=== PATIENT | female | born 1955 | race Hispanic/Latino ===

== ENCOUNTER 2017-04-30 11:52 | Day surgery (SDC) | payer OTHER ==
[2017-04-29 11:38] VITALS: BMI 34.0
[2017-04-30 12:46] LABS: BASO # 0.04 K/mm3 (0.0-2.0); BASO % 0.3 % (0.0-3.0); EOS # 0.1 (0.0-0.7); EOS % 0.9 % (1.5-5.0); GRAN # 12.16 (1.4-6.5); GRAN % 80.9 % (50.0-68.0); HEMATOCRIT 36.6 % (36.0-48.0); LYMPH # 1.5 (1.2-3.4); LYMPH % 10.3 % (22.0-35.0); MEAN CORPUSCULAR HEMOGLOBIN 23.4 pg (25.0-35.0); MEAN CORPUSCULAR HGB CONC 31.1 g/dl (31.0-37.0); MONO # 1.1 (0.1-0.6); MONO % 7.6 % (1.0-6.0); RED CELL DISTRIBUTION WIDTH 17.6 % (11.5-14.5)
[2017-04-30 13:02] LABS: INR 1.23 (0.93-1.08); PARTIAL THROMBOPLASTIN TIME 30.9 Seconds (25.1-36.5)
[2017-04-30 13:06] LABS: BLOOD UREA NITROGEN 8 mg/dL (7-21); CALCIUM 9.2 mg/dL (8.4-10.5); CARBON DIOXIDE 31 mmol/L (21-33); CHLORIDE 98 mmol/L (98-107); GFR AFRICAN-AMERICAN > 60; GLUCOSE,RANDOM 116 mg/dL (70-110); POTASSIUM 3.8 mmol/L (3.6-5.0); SODIUM 135 mmol/L (132-148)
[2017-04-30] MEDS ORDERED: Midazolam 2 MG/2 ML VIAL ONE (14:15)
[2017-04-30] MEDS ORDERED: Oxycodone/Acetaminophen 5/325 mg Tab PO PRN (15:23)
[2017-04-30] MEDS ORDERED: Sodium Chloride 0.45% 1,000 ML IV SCH (15:30)
--- NOTE | 2017-04-30 16:19 | CT ---
PROCEDURE: CT guided left lower lobe lung biopsy. HISTORY: 8 cm cavitary left lower lobe lung mass. Smoker. Martina. PHYSICIAN(S): Dze Laird MD. TECHNIQUE: The relative risks and indications of the procedure were explained to the patient and consent obtained. The patient was placed prone on the CT scanner and preliminary images through the lung bases obtained. Conscious sedation and monitoring were provided throughout the procedure by a nurse. There is an 8.6 cm thick walled cavitary mass in the left lower lobe extending from the hilum.. A left posterior approach was selected and the area prepped and draped in the usual sterile fashion. 1% Xylocaine was used to anesthetize the skin and soft tissues. A 19 gauge guiding needle was advanced into the 8.6 cm cavitary mass centrally. Its position was confirmed with CT. Using coaxial technique, multiple core biopsies were obtained. The postprocedure images show no evidence of large pneumothorax or hemorrhage.. IMPRESSION: 1. CT-guided left lower lobe lung biopsy as described above. Specimens were sent for histology and microbiology
[2017-04-30 16:27] VITALS: BP 110/59; PULSE 111; RESP 20; TEMP 98.4; O2SAT 92
--- NOTE | 2017-04-30 16:53 | RAD ---
HISTORY: lt lung bx apparently CT lung biopsy was performed prior to this exam COMPARISON: No prior. FINDINGS: LUNGS: The left rounded mid lung zone mass presumably that which was biopsied is noted. No gross pneumothorax is appreciated. PLEURA: Small left pleural effusion no pneumothorax apparent. CARDIOVASCULAR: Heart size top normal. Pulmonary venous congestion mildly increased -chronicity unknown OSSEOUS STRUCTURES: No significant abnormalities. VISUALIZED UPPER ABDOMEN: Normal. OTHER FINDINGS: None. IMPRESSION: Left lung mass recently biopsied. -under CT guidance. No pneumothorax appreciated on this exam. Small left pleural effusion
== END 2017-04-30 18:15 | disposition home or self-care (01) ==
LOC: SDS 11:52
PROVIDERS: ATTEND Radiology Vascular & Interventional Radiology
DX: C34.32 Malignant neoplasm of lower lobe, left bronchus or lung (principal); I73.9 Peripheral vascular disease, unspecified; J43.9 Emphysema, unspecified; F17.200 Nicotine dependence, unspecified, uncomplicated; E66.9 Obesity, unspecified; R04.2 Hemoptysis; J90 Pleural effusion, not elsewhere classified
CPT/HCPCS: 32405; 36415; 71010; 77012; 80048; 85025; 85610; 85730; 87015; 87070; 87075; 87101; 87116; 87206; 88305; J2250; J2405; J3010; J7030

== ENCOUNTER 2017-06-26 17:41 | Inpatient (IN) | payer OTHER ==
[2017-06-26 19:13] LABS: VENOUS BLOOD GAS BASE EXCESS 7.2 mmol/L (0.0-2.0); VENOUS BLOOD GAS PO2 190 mm/Hg (30-55); VENOUS BLOOD PH 7.42 (7.32-7.43)
[2017-06-26 19:24] LABS: ALBUMIN 3.6 g/dL (3.0-4.8); ALT/SGPT 21 U/L (7-56); AST/SGOT 33 U/L (14-36); BLOOD UREA NITROGEN 11 mg/dL (7-21); CALCIUM 9.6 mg/dL (8.4-10.5); GFR AFRICAN-AMERICAN > 60; GFR NON-AFRICAN AMERICAN > 60
[2017-06-26 19:25] LABS: BASO # 0.04 K/mm3 (0.0-2.0); BASO % 0.2 % (0.0-3.0); EOS # 0.1 (0.0-0.7); EOS % 0.3 % (1.5-5.0); GRAN # 17.29 (1.4-6.5); GRAN % 85.5 % (50.0-68.0); HEMOGLOBIN 12.4 g/dL (12.0-16.0); LYMPH # 1.8 (1.2-3.4); LYMPH % 8.9 % (22.0-35.0); MEAN CELL VOLUME 73.7 fl (80.0-105.0); MEAN CORPUSCULAR HEMOGLOBIN 22.5 pg (25.0-35.0); MEAN CORPUSCULAR HGB CONC 30.5 g/dl (31.0-37.0); MEAN PLATELET VOLUME 8.3 fl (7.0-11.0); MONO % 5.1 % (1.0-6.0); RBC 5.51 10^6/uL (3.5-6.1); RED CELL DISTRIBUTION WIDTH 18.5 % (11.5-14.5); WHITE BLOOD COUNT 20.2 10^3/ul (4.5-11.0)
[2017-06-26 19:30] LABS: ALB/GLOB RATIO 0.8 (1.1-1.8)
[2017-06-26 19:38] LABS: B-TYPE NATRIURETIC PEPTIDE 4490 pg/mL (0-450); TROPONIN I < 0.01 ng/mL
--- NOTE | 2017-06-26 19:57 | ED PDOC ---
Arrival/HPI - General Chief Complaint: Chest Pain Time Seen by Provider: 06/26/17 18:39 Historian: Patient - History of Present Illness Narrative History of Present Illness (Text): 06/26/17 19:54 A 61 year old female, whose past medical history includes recently diagnosed lung cancer, presents to the emergency department complaining of shortness of breath since today. Patient notes palpitations but denies any fever, chills, nausea, vomiting abdominal pain, chest pain or any other complaints. Patient reports she has a scheduled follow up appointment with oncologist tomorrow. Time/Duration: Other (today) Symptom Course: Unchanged Context: Home Past Medical History - Provider Review Nursing Documentation Reviewed: Yes - Past Medical History Past Medical History: No Previous - Cardiac Hx Cardiac Disorders: No Hx Pacemaker: No - Pulmonary Hx Respiratory Disorders: Yes Hx Lung Cancer: Yes - Neurological Hx Neurological Disorder: No Hx Paralysis: No - HEENT Hx HEENT Disorder: No - Renal Hx Renal Disorder: No - Endocrine/Metabolic Hx Endocrine Disorders: No - Hematological/Oncological Hx Blood Disorders: No Hx Blood Transfusions: No - Integumentary Hx Dermatological Disorder: No - Musculoskeletal/Rheumatological Hx Musculoskeletal Disorders: Yes Hx Falls: Yes - Gastrointestinal Hx Gastrointestinal Disorders: No - Genitourinary/Gynecological Hx Genitourinary Disorders: No - Psychiatric Hx Psychophysiologic Disorder: No Hx Emotional Abuse: No Hx Physical Abuse: No Hx Substance Use: No - Surgical History Other/Comment: Breast reduction - Anesthesia Hx Anesthesia Reactions: No Hx Malignant Hyperthermia: No - Suicidal Assessment Feels Threatened In Home Enviroment: No Family/Social History - Physician Review Nursing Documentation Reviewed: Yes Family/Social History: No Known Family HX Smoking Status: Former Smoker Hx Alcohol Use: Yes (RARE) Hx Substance Use: No Allergies/Home Meds Allergies/Adverse Reactions: Allergies No Known Allergies Allergy (Verified 06/26/17 18:01) Home Medications: Home Meds Medication Instructions Recorded Confirmed Albuterol HFA [Ventolin HFA 90 1 puff IH PRN PRN 04/29/17 06/26/17 mcg/actuation (8 g)] Dextroamphetamine/Amphetamine 20 mg PO TID 04/29/17 06/26/17 [Adderall 20 mg Tablet] Lactobacillus Combination No.8 1 cap PO DAILY 04/29/17 06/26/17 [Adult Probiotic] Naproxen Sodium [Aleve] 2 tab PO BID PRN 04/29/17 06/26/17 Review of Systems - Physician Review All systems were reviewed & negative as marked: Yes - Review of Systems Constitutional: absent: Fevers, Night Sweats Respiratory: SOB Cardiovascular: Palpitations. absent: Chest Pain Gastrointestinal: absent: Abdominal Pain, Nausea, Vomiting Physical Exam Vital Signs Reviewed: Yes Vital Signs Pulse Resp BP Pulse Ox 06/26/17 22:22 121/84 06/26/17 18:04 115 H 26 H 141/72 100 Temperature: Afebrile Blood Pressure: Normal Pulse: Tachycardic Respiratory Rate: Tachypneic Appearance: Positive for: Well-Appearing, Non-Toxic, Comfortable Pain Distress: None Mental Status: Positive for: Alert and Oriented X 3 - Systems Exam Head: Present: Atraumatic, Normocephalic Pupils: Present: PERRL Extroacular Muscles: Present: EOMI Conjunctiva: Present: Normal Mouth: Present: Moist Mucous Membranes Neck: Present: Normal Range of Motion Respiratory/Chest: Present: Decreased Breath Sounds (decrease air entry greater in left than right). No: Respiratory Distress, Accessory Muscle Use Cardiovascular: Present: Normal S1, S2, Tachycardic. No: Murmurs Abdomen: Present: Normal Bowel Sounds. No: Tenderness, Distention, Peritoneal Signs Back: Present: Normal Inspection Upper Extremity: Present: Normal Inspection, Normal ROM, NORMAL PULSES. No: Cyanosis, Edema Lower Extremity: Present: Edema (bilateral pitting edema up to knees), NORMAL PULSES, Normal ROM. No: CALF TENDERNESS Neurological: Present: GCS=15, CN II-XII Intact, Speech Normal Skin: Present: Warm, Dry, Normal Color. No: Rashes Psychiatric: Present: Alert, Oriented x 3, Normal Insight, Normal Concentration Medical Decision Making ED Course and Treatment: 06/26/17 19:54 Impression: A 61 year old female with shortness of breath and palpitations. Tachypnea, tachycardic and hypoxic. Plan: -- Angio chest CT -- Chest xray -- EKG -- Labs -- Blood and Urine culture -- Urinalysis -- Aspirin -- Reassess and disposition Progress Notes: EKG shows sinus tachycardia at 123 BPM with right axis, with nonspecific ST changes. Interpreted by me. Patient refusing BiPAP. Saturating 100% on face mask. 85% RA 06/26/17 22:54 FINDINGS: No pulmonary embolism. No aortic dissection or aneurysm. There is a moderate left pleural effusion. There is no right pleural effusion. There is left lower lung consolidation extending from the hilar region with a central area of cavitation similar to images sent from CT guided biopsy of this region. Please note that the prior CT is not sent, only biopsy images. Mediastinal lymph nodes are present. Heterogeneous enlarged left adrenal gland. Degenerative changes in the osseous structures. Possible hemangioma L1. IMPRESSION: Moderate left pleural effusion. Large area of consolidation with central cavitation in the left lower lung. Recommend correlation with recent biopsy for pathologic diagnosis. Mediastinal lymph nodes. Heterogeneous enlarged left adrenal gland. Further characterization with MRI may be helpful if not done previously. 06/26/17 22:56 1 dose of treatment for community acquired pna given due to leukocytosis and pleural effusion concerning for underlying consolidation. Lasix given due to fluid overload and b/l lower extremity edema. Continues to refuse bipap. Spoke to Dr. Matos for ICU consult. Will admit under Dr. Leslie for hypoxia, tachypnea and worsening pleural effusion - Lab Interpretations Lab Results: 06/26/17 18:00 Lab Results 06/26/17 19:51: Urine Color Yellow, Urine Appearance Clear, Urine pH 6.5, Ur Specific [place] 1.010, Urine Protein Negative, Urine Glucose (UA) Negative, Urine Ketones Negative, Urine Blood Trace-intact H, Urine Nitrate Negative, Urine Bilirubin Negative, Urine Urobilinogen 2.0 H, Ur Leukocyte Esterase Negative, Urine RBC 1 - 3, Urine WBC Negative, Ur Epithelial Cells 6 - 8, Urine Bacteria Few 06/26/17 19:40: Blood Type O POSITIVE, Antibody Screen Negative, BBK History Checked No verified bt 06/26/17 19:01: pO2 190 H, VBG pH 7.42, VBG pCO2 51.0, VBG HCO3 33.1 H, VBG Total CO2 34.7 H, VBG O2 Sat (Calc) 99.5 H, VBG Base Excess 7.2 H, VBG Potassium 4.2, Glucose 138 H, Lactate 0.7, FiO2 21.0, Sodium 133.0, Chloride 100.0, Venous Blood Potassium 4.2 06/26/17 18:00: PT 13.9 H, INR 1.21 H, APTT 30.7, D-Dimer, Quantitative 836 H 06/26/17 18:00: Sodium 136, Potassium 4.0, Chloride 94 L, Carbon Dioxide 31, Anion Gap 15, BUN 11, Creatinine 0.6 L, Est GFR ( Amer) > 60, Est GFR ( Non-Af Amer) > 60, Random Glucose 156 H, Calcium 9.6, Total Bilirubin 0.5, AST 33, ALT 21, Alkaline Phosphatase 212 H, Lactate Dehydrogenase 398, Total Creatine Kinase 24 L, Troponin I < 0.01, NT-Pro-B Natriuret Pep 4490 H, Total Protein 8.5 H, Albumin 3.6, Globulin 4.8, Albumin/Globulin Ratio 0.8 L 06/26/17 18:00: WBC 20.2 H D, RBC 5.51, Hgb 12.4, Hct 40.6, MCV 73.7 L, MCH 22.5 L, MCHC 30.5 L, RDW 18.5 H, Plt Count 528 H, MPV 8.3, Gran % 85.5 H, Lymph % (Auto) 8.9 L, [place] % (Auto) 5.1, Eos % (Auto) 0.3 L, Baso % (Auto) 0.2, Gran # 17.29 H, Lymph # 1.8, [place] # 1.0 H, Eos # 0.1, Baso # 0.04 I have reviewed the lab results: Yes - RAD Interpretation Radiology Orders: 06/26/17 18:59 CHEST PORTABLE [RAD] Stat 06/26/17 19:25 ANGIO CHEST PE PROTOCOL [CT] Stat - Medication Orders Current Medication Orders: Azithromycin (Zithromax 500mg In Ns) 500 mg in 250 mls @ 167 mls/hr IVPB STAT STA PRN Reason: Protocol Stop: 06/26/17 23:32 Last Admin: 06/26/17 22:47 Dose: 167 mls/hr eMAR Start Stop Document 06/26/17 22:47 RD (Rec: 06/26/17 22:48 RD [facility] [place] Intravenous Solution Start Date 06/26/17 Start Time 22:47 End Date 06/27/17 End time 00:17 Total Infusion Time 90 Discontinued Medications Aspirin (Aspirin Chewable) 324 mg PO STAT STA Stop: 06/26/17 18:42 Last Admin: 06/26/17 19:11 Dose: 162 mg Comments: patient took 2 81 mg aspirin earlier Furosemide (Lasix) 40 mg IVP STAT STA Stop: 06/26/17 22:08 Last Admin: 06/26/17 22:22 Dose: 40 mg MAR Blood Pressure Document 06/26/17 22:22 RD (Rec: 06/26/17 22:23 [facility]) Blood Pressure Blood Pressure (100/60-150/90) 121/84 IVP Administration Document 06/26/17 22:22 RD (Rec: 06/26/17 22:23 [facility]) Charges for Administration # of IVP Administrations 1 Ceftriaxone Sodium (Rocephin 1 Gram Ivpb) 1 gm in 100 mls @ 200 mls/hr IVPB STAT STA Stop: 06/26/17 22:35 Last Admin: 06/26/17 22:23 Dose: 200 mls/hr eMAR Start Stop Document 06/26/17 22:23 RD (Rec: 06/26/17 22:23 [facility]) Intravenous Solution Start Date 06/26/17 Start Time 22:23 - Scribe Statement The provider has reviewed the documentation as recorded by the Carlos Venegas Provider Scribe Attestation: All medical record entries made by the Scribe were at my direction and personally dictated by me. I have reviewed the chart and agree that the record accurately reflects my personal performance of the history, physical exam, medical decision making, and the department course for this patient. I have also personally directed, reviewed, and agree with the discharge instructions and disposition. Disposition/Present on Arrival - Present on Arrival Any Indicators Present on Arrival: No History of DVT/PE: No History of Uncontrolled Diabetes: No Urinary Catheter: No History of Decub. Ulcer: No History Surgical Site Infection Following: None - Disposition Have Diagnosis and Disposition been Completed?: Yes Diagnosis: Dependent edema, Pleural effusion, Tachypnea Disposition: HOSPITALIZED Disposition Time: 23:02 Patient Plan: Admission Patient Problems: Current Active Problems Problem Status Onset Dependent edema Acute Pleural effusion Acute Tachypnea Acute Condition: FAIR [facility]Primary Care [facility]] - Follow up with primary Forms: [employer] ([place])
[2017-06-26 20:22] LABS: PH,URINE 6.5 (4.7-8.0); URINE BILIRUBIN NEGATIVE (NEGATIVE); URINE BLOOD TRACE-INTACT (NEGATIVE); URINE GLUCOSE (UA) NEGATIVE (NEGATIVE); URINE LEUKOCYTE ESTERASE NEGATIVE Leu/uL (NEGATIVE); URINE NITRATE NEGATIVE (NEGATIVE); URINE PROTEIN NEGATIVE mg/dL (<30 mg/dL)
[2017-06-26 20:24] LABS: URINE APPEARANCE CLEAR (CLEAR); URINE COLOR YELLOW (YELLOW)
[2017-06-26 20:36] LABS: URINE BACTERIA FEW (NEG); URINE WBC NEGATIVE /hpf (0-6)
[2017-06-26 20:54] LABS: INR 1.21 (0.93-1.08); PARTIAL THROMBOPLASTIN TIME 30.7 Seconds (25.1-36.5); PROTHROMBIN TIME 13.9 SECONDS (9.4-12.5)
[2017-06-26] MEDS ORDERED: Iohexol 350 MG/100 ML VIAL ONE (21:00)
[2017-06-26] MEDS ORDERED: cefTRIAXone (Rocephin) 1 gm Inj IVPB STA (22:03)
[2017-06-26] MEDS ORDERED: Azithromycin 500MG/NS 250ml 500 MG/250 ML BAG IVPB STA (22:03)
[2017-06-26] MEDS ORDERED: cefTRIAXone 1 GM/100 ML BAG IVPB STA (22:06)
--- NOTE | 2017-06-26 22:52 | CT ---
EXAM: CT Angiography Chest With Intravenous Contrast CLINICAL HISTORY: 61 years old, female; Signs and symptoms; Shortness of breath and other: Hypoxic; Additional info: Cancer, hypoxic TECHNIQUE: Axial computed tomographic angiography images of the chest with intravenous contrast using pulmonary embolism protocol. All CT scans at this facility use one or more dose reduction techniques, viz.: automated exposure control; ma/kV adjustment per patient size (including targeted exams where dose is matched to indication; i.e. head); or iterative reconstruction technique. MIP reconstructed images were created and reviewed. Coronal and sagittal reformatted images were created and reviewed. CONTRAST: 93 mL of OMNI 350 administered intravenously. COMPARISON: CT GUIDED LUNG BIOPSY 2017-04-30 15:06 FINDINGS: No pulmonary embolism. No aortic dissection or aneurysm. There is a moderate left pleural effusion. There is no right pleural effusion. There is left lower lung consolidation extending from the hilar region with a central area of cavitation similar to images sent from CT guided biopsy of this region. Please note that the prior CT is not sent, only biopsy images. Mediastinal lymph nodes are present. Heterogeneous enlarged left adrenal gland. Degenerative changes in the osseous structures. Possible hemangioma L1. IMPRESSION: Moderate left pleural effusion. Large area of consolidation with central cavitation in the left lower lung. Recommend correlation with recent biopsy for pathologic diagnosis. Mediastinal lymph nodes. Heterogeneous enlarged left adrenal gland. Further characterization with MRI may be helpful if not done previously.
--- NOTE | 2017-06-27 01:32 | CP.PCM.CON ---
<Harshal Reyes - Last Filed: 06/27/17 03:17> History of Present Illness - History of Present Illness History of Present Illness: Harshal Reyes D.O. PGY-2, Critical Care Consultation CC: tachypnea 61 year old female with an extensive smoking history and recent diagnosis of lung CA who [place] [facility] [place] with complaints of increasing tachypnea over the last few days. Consultation was ordered to evaluate patient given her respiratory status. Patient was seen and examined at bedside sitting in a chair. Patient relates how she had been feeling worse and worse over the last few days and having difficulty catching her breath despite using her home albuterol inhaler. Patient does have follow up pending for her lung cancer and states that she recently quit smoking. Otherwise denies sick contacts or recent travel. PMH: as above PSH: reviewed SH: reviewed FH: reviewed Meds: reviewed Allergies: NKA Review of Systems - Constitutional Constitutional: absent: Anorexia, Chills - EENT Eyes: absent: Blind Spots, Blurred Vision Ears: absent: Decreased Hearing, Ear Discharge Nose/Mouth/Throat: absent: Epistaxis, Nasal Congestion - Cardiovascular Cardiovascular: absent: Chest Pain, Diaphoresis - Respiratory Respiratory: Cough, Dyspnea, Wheezing - Gastrointestinal Gastrointestinal: absent: Abdominal Pain, Nausea, Vomiting - Genitourinary Genitourinary: absent: Dysuria, Hematuria - Musculoskeletal Musculoskeletal: absent: Stiffness, Tingling - Integumentary Integumentary: absent: Pruritus, Rash - Neurological Neurological: absent: Tingling, Tremor Past Patient History - Past Social History Smoking Status: Former Smoker - CARDIAC Hx Cardiac Disorders: No Hx Pacemaker: No - PULMONARY Hx Respiratory Disorders: Yes Hx Lung Cancer: Yes - NEUROLOGICAL Hx Neurological Disorder: No Hx Paralysis: No - HEENT Hx HEENT Problems: No - RENAL Hx Chronic Kidney Disease: No - ENDOCRINE/METABOLIC Hx Endocrine Disorders: No - HEMATOLOGICAL/ONCOLOGICAL Hx Blood Disorders: No Hx Blood Transfusions: No - INTEGUMENTARY Hx Dermatological Problems: No - MUSCULOSKELETAL/RHEUMATOLOGICAL Hx Musculoskeletal Disorders: Yes Hx Falls: Yes - GASTROINTESTINAL Hx Gastrointestinal Disorders: No - GENITOURINARY/GYNECOLOGICAL Hx Genitourinary Disorders: No - PSYCHIATRIC Hx Psychophysiologic Disorder: No Hx Emotional Abuse: No Hx Physical Abuse: No Hx Substance Use: No - SURGICAL HISTORY Other/Comment: Breast reduction - ANESTHESIA Hx Anesthesia Reactions: No Hx Malignant Hyperthermia: No Meds Allergies/Adverse Reactions: Allergies Allergy/AdvReac Type Severity Reaction Status Date / Time No Known Allergies Allergy Verified 06/26/17 18:01 Physical Exam - Constitutional Appears: No Acute Distress, Chronically Ill - Head Exam Head Exam: ATRAUMATIC, NORMOCEPHALIC - Eye Exam Eye Exam: EOMI, PERRL. absent: Scleral icterus - ENT Exam ENT Exam: Mucous Membranes Moist - Neck Exam Neck exam: Positive for: Normal Inspection - Respiratory Exam Respiratory Exam: Decreased Breath Sounds, Wheezes - Cardiovascular Exam Cardiovascular Exam: RRR, +S1, +S2. absent: Gallop, Rubs - GI/Abdominal Exam GI & Abdominal Exam: Normal Bowel Sounds, Soft. absent: Tenderness - Extremities Exam Extremities exam: Negative for: calf tenderness - Neurological Exam Neurological exam: Alert, Oriented x3 - Psychiatric Exam Psychiatric exam: Normal Affect, Normal Mood - Skin Skin Exam: Dry, Warm Results - Vital Signs Recent Vital Signs: Last Vital Signs Temp Pulse 114 H 06/26/17 23:51 Resp 20 06/26/17 23:51 BP 139/85 06/26/17 23:51 Pulse Ox 91 L 06/26/17 23:51 - Labs Result Diagrams: 06/26/17 18:00 06/26/17 18:00 Assessment & Plan - Assessment and Plan (Free Text) Assessment: 61 year old female with an extensive smoking history and recent diagnosis of lung CA who presented with complaints of increasing tachypnea over the last few days Plan: Tachypnea Lung cancer Patient able to speak in mostly full sentences, found sitting comfortably in no acute distress. No decreased saturations observed during conversation. Patient refusing BIPAP, states that the mask makes her feel claustrophobic. CT chest images and read reviewed, no PE but has pleural effusion and consolidation likely area of known cancer. All labs reviewed. No hypercapnia. No acidosis. Patient stabilized at this time, not in any impending respiratory failure, and at this time does not meet criteria for intensive care unit admission. Please don't hesitate to re-consult for as necessary. Thank you for the pleasure of participating in the care of this interesting patient. Patient was seen and examined at bedside and case was discussed at length with attending physician. - Date & Time Date: 06/27/17 Time: 01:30 <Italo Matos MD - Last Filed: 06/28/17 11:12> Meds - Medications Medications: Current Medications Albuterol/Ipratropium (Duoneb 3 Mg/0.5 Mg (3 Ml) Ud) 3 ml IH [id number] [facility] Last Admin: 06/28/17 08:57 Dose: 3 ml Albuterol/Ipratropium (Duoneb 3 Mg/0.5 Mg (3 Ml) Ud) 3 ml IH Q2H PRN PRN Reason: Shortness of Breath Budesonide (Pulmicort Respules) 0.5 mg IH [id number] [facility] Last Admin: 06/28/17 08:56 Dose: 0.5 mg Furosemide (Lasix) 40 mg IVP DAILY [facility] Last Admin: 06/28/17 10:39 Dose: 40 mg Vancomycin HCl (Vancomycin 1gm) 1 gm in 250 mls @ 167 mls/hr IVPB Q12H LUZ MARINA PRN Reason: Protocol Last Admin: 06/28/17 10:24 Dose: 167 mls/hr Azithromycin (Zithromax 500mg In Ns) 500 mg in 250 mls @ 167 mls/hr IVPB DAILY [facility] PRN Reason: Protocol Last Admin: 06/28/17 10:25 Dose: 167 mls/hr Meropenem (Merrem Iv 1 Gm Premix) 50 mls @ 100 mls/hr IVPB Q8H [facility] Last Admin: 06/28/17 10:22 Dose: 100 mls/hr Methylprednisolone (Solu-Medrol) 40 mg IVP Q8H [facility] Last Admin: 06/28/17 10:50 Dose: 40 mg Results - Vital Signs Recent Vital Signs: Last Vital Signs Temp 98.2 F 06/28/17 08:14 Pulse 107 H 06/28/17 08:14 Resp 18 06/28/17 08:14 BP 130/60 06/28/17 10:39 Pulse Ox 94 L 06/28/17 08:14 - Labs Result Diagrams: 06/26/17 18:00 06/26/17 18:00 Attending/Attestation - Attestation I have personally seen and examined this patient.: Yes I have fully participated in the care of the patient.: Yes I have reviewed all pertinent clinical information: Yes Notes (Text): -I agree with the above ICU consult note completed by the resident physician; The patient doesnt require ICU level of care at this time for the reasons stated above by the resident physician. Please feel free to re-consult if her condition deteriorates. Thank you.
[2017-06-27 02:47] VITALS: BMI 34.5
[2017-06-27] MEDS ORDERED: Ipratropium 0.02% Inhal Soln (0.5 mg/2.5 ml) UD IH STA (04:13)
--- NOTE | 2017-06-27 08:14 | CP.PCM.HP ---
<Leeanne Daly - Last Filed: 06/27/17 12:54> History of Present Illness - History of Present Illness History of Present Illness: PGY-[address] Miranda CC: SOB, tachypnea, respiratory distress Ms Quinn, 61 year old female, with an extensive smoking history and recent diagnosis of lung CA who presented to [facility] ER on 06/26 with complaints of increasing tachypnea x 1 week. 1 Week ago, pt started coughing spell and requiring inhaler 3-4 times a day. Patient states that she had been feeling worse and worse over the last few days and having difficulty catching her breath despite using her home albuterol inhaler. Her cough was so severe that she fell backward landed on her buttock last week. Her son had a cold recently. Denies travel, runny nose, sputum. (+) sick contact. Patient does have follow up pending for her lung cancer and states that she recently quit smoking. In the ED, Patient refusing BiPAP. Saturating 100% on face mask. 85% RA EKG shows sinus tachycardia at 123 BPM with right axis, with nonspecific ST changes CTA chest showed: (+) moderate left pleural effusion. (+) Large left lower lung consolidation extending from the hilar region with a central cavitation (+) Mediastinal lymph nodes are present. Heterogeneous enlarged left adrenal gland. Degenerative changes in the osseous structures. Possible hemangioma L1. ROS (+) palpitation Denies F/C, CP, N/V,abd pain. Denies sick contacts or recent travel. PMH Lung CA, poorly differentation Chronic small pleural effusion Former smoker, quit recently Hx Falls PSH Breast reduction 1999 Inguinal hernia, R, repair, 2011 Lung bx 04/2017 FH dad- diabetes, mom HTN, sister-leukemia SH Former smoker, recently quit, 1ppd x 40 years Denied drink, drugs Live with son (16 yo), aunt. Brother lives nearly Allergy NKDA Med Adderall Albuteral PMD: Dr Corbin Outpat Oncologist: Dr. Ford Present on Admission - Present on Admission Any Indicators Present on Admission: No Review of Systems - Review of Systems All systems: reviewed and no additional remarkable complaints except - Constitutional Constitutional: As Per HPI Past Patient History - Past Social History Smoking Status: Former Smoker - CARDIAC Hx Cardiac Disorders: No Hx Pacemaker: No - PULMONARY Hx Respiratory Disorders: Yes Hx Lung Cancer: Yes - NEUROLOGICAL Hx Neurological Disorder: No Hx Paralysis: No - HEENT Hx HEENT Problems: No - RENAL Hx Chronic Kidney Disease: No - ENDOCRINE/METABOLIC Hx Endocrine Disorders: No - HEMATOLOGICAL/ONCOLOGICAL Hx Blood Disorders: No Hx Blood Transfusions: No - INTEGUMENTARY Hx Dermatological Problems: No - MUSCULOSKELETAL/RHEUMATOLOGICAL Hx Musculoskeletal Disorders: Yes Hx Falls: Yes - GASTROINTESTINAL Hx Gastrointestinal Disorders: No - GENITOURINARY/GYNECOLOGICAL Hx Genitourinary Disorders: No - PSYCHIATRIC Hx Psychophysiologic Disorder: No Hx Emotional Abuse: No Hx Physical Abuse: No Hx Substance Use: No - SURGICAL HISTORY Other/Comment: Breast reduction - ANESTHESIA Hx Anesthesia Reactions: No Hx Malignant Hyperthermia: No Meds Allergies/Adverse Reactions: Allergies Allergy/AdvReac Type Severity Reaction Status Date / Time No Known Allergies Allergy Verified 06/26/17 18:01 Physical Exam - Constitutional Appears: No Acute Distress Additional comments: Speaks in choppy sentences interrupted by coughs - Head Exam Head Exam: ATRAUMATIC, NORMAL INSPECTION, NORMOCEPHALIC - Eye Exam Eye Exam: EOMI, Normal appearance, PERRL. absent: Scleral icterus Pupil Exam: NORMAL ACCOMODATION - ENT Exam ENT Exam: Mucous Membranes Moist - Neck Exam Additional comments: supple - Respiratory Exam Respiratory Exam: Wheezes. absent: NORMAL BREATHING PATTERN (shallow breaths with coughs, interrupting speech) - Cardiovascular Exam Cardiovascular Exam: REGULAR RHYTHM, +S1, +S2. absent: Systolic Murmur - GI/Abdominal Exam GI & Abdominal Exam: Normal Bowel Sounds, Soft. absent: Guarding, Rigid, Tenderness - Extremities Exam Extremities exam: Positive for: pedal edema (2+, chronic). Negative for: calf tenderness - Neurological Exam Neurological exam: Alert, Oriented x3 - Psychiatric Exam Psychiatric exam: Normal Affect, Normal Mood - Skin Skin Exam: Dry, Warm Results - Vital Signs Recent Vital Signs: Last Vital Signs Temp 97.5 F L 06/27/17 06:00 Pulse 110 H 06/27/17 06:00 Resp 21 06/27/17 06:00 BP 106/71 06/27/17 06:00 Pulse Ox 90 L 06/27/17 06:00 - Labs Result Diagrams: 06/26/17 18:00 06/26/17 18:00 Labs: Laboratory Results - last 24 hr 06/27/17 06/27/17 06:00 07:28 POC Glucose (mg/dL) 128 H Blood Type Confirm O POSITIVE Assessment & Plan - Assessment and Plan (Free Text) Plan: Ms Quinn, 61 year old female, with recent diagnosis of lung CA s/p CT-guided lung Bx presented with complaints of increasing tachypnea x 1 week, requiring inhaler 3-4 times a day without much improvement. Sepsis from pneumonia (HR 113, RR 24, 105/65, WBC 20.2) - Meropenem, Vancomycin, Azithromycin - ID consult - Pending blood and urine culture - Consider procalcitonin, MRSA nasal swab, Leginella Ag, Mycoplasma Ag, flu swab - tylenol prn Pneumonia, s/p recent lung Bx, HCAP vs postobstructive Respiratory distress with hypoxia, tachypnea - improves - CT chest large consolidation with central cavitation in LL lung - Duoneb Q6 and q2prn, Budesonide - Pulm consult - pt refused bipap - o2 prn Plerual effusion, moderate, exudative vs transudative - sufficicent amount for thoracentesis? Consider IR consult CHF chronic, BNP 4490 - Lasix prn - daily wt, i/o microcytic RBC - consider stool occult blood Consider DVt due to hypercoagulable state from malignancy S/R/d/w Dr. Miranda <Alejandro Miranda S - Last Filed: 06/27/17 17:42> Results - Vital Signs Recent Vital Signs: Last Vital Signs Temp 97.8 F 06/27/17 17:28 Pulse 101 H 06/27/17 17:28 Resp 20 06/27/17 17:28 BP 99/62 L 06/27/17 17:28 Pulse Ox 90 L 06/27/17 06:00 - Labs Result Diagrams: 06/26/17 18:00 06/26/17 18:00 Labs: Laboratory Results - last 24 hr 06/27/17 06/27/17 06/27/17 06:00 07:28 10:10 pCO2 57 H pO2 58.0 L HCO3 35.3 H ABG pH 7.40 ABG Total CO2 37.0 H ABG O2 Saturation 93.3 L ABG O2 Content 13.8 L ABG Base Excess 8.9 H ABG Hemoglobin 10.8 L ABG Carboxyhemoglobin 2.6 H POC ABG HHb (Measured) 6.5 H ABG Methemoglobin 0.3 ABG O2 Capacity 14.8 L Hgb O2 Saturation 90.5 L FiO2 32.0 POC Glucose (mg/dL) 128 H Blood Type Confirm O POSITIVE Assessment & Plan - Assessment and Plan (Free Text) Plan: Pt seen and examined by me. I reviewed the above note and the ER note. Agree with the Assessment and plan. Reviewed old notes. Reviewed labs and medications. On IV Abx and Duoneb. The pt fell at home. She is going to see an oncologist in 4 days.
[2017-06-27] MEDS ORDERED: Albuterol-Ipratrop 3 mg / 0.5 (3 ml) UD IH SCH (09:15)
[2017-06-27] MEDS: MethylPREDNISolone 40 mg Vial IVP SCH ×2 (09:33→17:25)
--- NOTE | 2017-06-27 09:53 | RAD ---
HISTORY: hypoxic, tachypneic COMPARISON: 04/30/2017 FINDINGS: LUNGS: There is an infiltrate in the left lower lobe. This obscures the diaphragm. Prominent interstitial markings PLEURA: No significant pleural effusion identified, no pneumothorax apparent. CARDIOVASCULAR: Mild cardiomegaly OSSEOUS STRUCTURES: No significant abnormalities. VISUALIZED UPPER ABDOMEN: Normal. OTHER FINDINGS: None. IMPRESSION: There is an infiltrate in the left lower lobe. This obscures the diaphragm. Prominent interstitial markings
[2017-06-27] MEDS ORDERED: Meropenem 1 GM in Dextrose 5% In Water 100 ML IVPB SCH (10:00)
[2017-06-27 10:20] LABS: ARTERIAL BLOOD GAS HCO3 35.3 mmol/L (21-28); ARTERIAL BLOOD GAS HEMOGLOBIN 10.8 g/dL (11.7-17.4); ARTERIAL BLOOD GAS O2 CAPACITY 14.8 mL/dl (16-24); ARTERIAL BLOOD GAS O2 CONTENT 13.8 ML/dl (15-23); ARTERIAL BLOOD GAS O2 SAT 93.3 % (95-98); ARTERIAL BLOOD GAS PCO2 57 mm/Hg (35-45)
[2017-06-27] MEDS: Vancomycin 1gm in NS 250ml 1 GM/250 ML BAG IVPB SCH ×2 (10:22→21:52)
[2017-06-27] MEDS: Meropenem IV 1 gm in NS 50 ML IVPB SCH ×2 (12:36→17:24)
--- NOTE | 2017-06-27 12:38 | CON ---
DATE: 06/27/2017 PULMONARY CONSULTATION REASON FOR CONSULTATION: Chronic obstructive pulmonary disease. REFERRING PHYSICIAN: Dr. Alejandro Miranda. HISTORY OF PRESENT ILLNESS: The patient is a 61-year-old female, with past medical history significant for advanced chronic obstructive pulmonary disease, positive extensive smoking history, advanced/extensive non-small cell cancer of the left lung, who presents to [facility] with a 3-day history of worsening shortness of breath at rest, dyspnea on exertion, cough and minimal sputum production. There is no history of chest pain, coughing up of blood or chest pain - made worse with deep respirations. There is no history of temperatures, chills or infectious exposure. There is no history of night sweats. There is a history of weight loss with decreased appetite recently. No history of calf pains. No history of syncope or diaphoresis. No history of recent travel or trauma. REVIEW OF SYSTEMS: No history of nausea, vomiting or diarrhea. No acute urinary symptoms. No new neurologic or musculoskeletal complaints. Rest of the review of systems negative. ALLERGIES: NO KNOWN ALLERGIES. SOCIAL HISTORY: Positive for extensive tobacco usage. No alcohol. FAMILY HISTORY: No inheritable diseases. HOME MEDICATIONS: Include Aleve, Adderall and albuterol HFA. PHYSICAL EXAMINATION: GENERAL: The patient is mildly short of breath, but in no acute distress. She is not using accessory muscles for breathing. VITAL SIGNS: Temperature is 97.5, pulse on the monitor is 106, respiratory rate 21, blood pressure 106/71. Oxygen saturation on nasal cannula is 90-92%. HEENT: Normocephalic, atraumatic. No JVD. CARDIOVASCULAR: Positive S1, S2. No S3 gallop. LUNGS: Decreased breath sounds - both lower lobes. Scattered bilateral rhonchi and wheezing are present. EXTREMITIES: Positive for edema. No cyanosis, no clubbing. Calves are nontender to palpation. GI: Abdomen is soft, nontender and nondistended. Bowel sounds are positive. SKIN: No acute rash. NEUROLOGIC: Limited at the present time. PERTINENT LABORATORY DATA: CAT scan of the chest was done as an angiogram protocol. There is no pulmonary embolism noted. There is a large area of consolidation with central cavitation in the left lower lung. There is a small to moderate left pleural effusion. There are also enlarged mediastinal lymph nodes. The patient did have a PET scan done on 05/23/2017. At that point, there was again a small to moderate left pleural effusion. There was a large cavitary mass at the left lower lobe with intense FDG uptake. There was also mildly increased FDG uptake in the mediastinal lymph nodes. There was also a left adrenal gland nodule with increased FDG uptake. CBC: White count 20.2, hemoglobin 12.4, hematocrit 40.6, platelets of [id number]. Complete metabolic profile: Chloride 94, creatinine 0.6, glucose 156, alkaline phosphatase 212. B-type natriuretic peptide 4490, protein 8.5. Rest of the metabolic profile is within normal limits. IMPRESSION: 1. Acute bronchitis. 2. Advanced chronic obstructive pulmonary disease. 3. Advanced/extensive non-small cell cancer of the left lung. 4. Leukocytosis. PLAN: The patient presents to [facility] with a 3-day history of worsening pulmonary symptoms. I do know this patient from the office. The patient did have a CAT scan of the chest - done as an angiogram protocol. There is no pulmonary embolism noted. There is a large area of consolidation with central cavitation in the left lower lung. This cavitary mass was biopsied - positive for non-small cell carcinoma. There is also increased mediastinal lymphadenopathy ,as well as a left adrenal gland nodule. This adrenal gland nodule did light up on previous PET scan. I did review the laboratory exams. There is significant leukocytosis noted. Dr. Stuart (infectious disease) has been called on the case for antibiotic usage. On physical exam, the patient is in moderate bronchospasm. I will increase the DuoNeb treatments, add inhaled Pulmicort, and add intravenous steroids. Oxygen saturation on nasal cannula is 90-92%. I will also obtain an arterial blood gas this morning. Gomez cultures are pending. The patient does feel better, and is clinically improved - compared to the past few days. However, unfortunately, the overall status/prognosis for this patient is poor. She does have an appointment with an oncologist at [facility] next Friday. I have urged her to seek an oncology evaluation for the past few months. I will discuss the above with Dr. Miranda. Thank you very much for this pulmonary consultation. Amadou Mueller MD [facility] # [id number] [place]
[2017-06-27] MEDS: Albuterol-Ipratrop 3 mg / 0.5 (3 ml) UD IH SCH ×2 (13:41→22:00)
--- NOTE | 2017-06-27 13:59 | CP.PCM.CON ---
History of Present Illness - History of Present Illness History of Present Illness: 61 year old female with PMH of extensive smoking history, lung CA diagnosed in April 2017 came in to [facility] complaining of worsening shortness of breath and cough for the past 3-4 days, as well as dyspnea on exertion. 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 She denies fever or chills, she has cough with yellowish and blood-tinged sputum, denies sore throat, no rhinorrhea , no chest pain, no abdominal pain, no dysphagia, no diarrhea, no dysuria. In the ED, CT chest was done which continues to show the left lower cavitary lesion but now with surrounding consolidation as well. Infectious diseases consult is requested to further evaluate and manage. Review of Systems - Review of Systems All systems: reviewed and no additional remarkable complaints except (as per HPI ) Past Patient History - Past Social History Smoking Status: Former Smoker - CARDIAC Hx Cardiac Disorders: No Hx Pacemaker: No - PULMONARY Hx Respiratory Disorders: Yes Hx Lung Cancer: Yes - NEUROLOGICAL Hx Neurological Disorder: No Hx Paralysis: No - HEENT Hx HEENT Problems: No - RENAL Hx Chronic Kidney Disease: No - ENDOCRINE/METABOLIC Hx Endocrine Disorders: No - HEMATOLOGICAL/ONCOLOGICAL Hx Blood Disorders: No Hx Blood Transfusions: No - INTEGUMENTARY Hx Dermatological Problems: No - MUSCULOSKELETAL/RHEUMATOLOGICAL Hx Musculoskeletal Disorders: Yes Hx Falls: Yes - GASTROINTESTINAL Hx Gastrointestinal Disorders: No - GENITOURINARY/GYNECOLOGICAL Hx Genitourinary Disorders: No - PSYCHIATRIC Hx Psychophysiologic Disorder: No Hx Emotional Abuse: No Hx Physical Abuse: No Hx Substance Use: No - SURGICAL HISTORY Other/Comment: Breast reduction - ANESTHESIA Hx Anesthesia Reactions: No Hx Malignant Hyperthermia: No Meds Allergies/Adverse Reactions: Allergies Allergy/AdvReac Type Severity Reaction Status Date / Time No Known Allergies Allergy Verified 06/26/17 18:01 - Medications Medications: Current Medications Albuterol/Ipratropium (Duoneb 3 Mg/0.5 Mg (3 Ml) Ud) 3 ml IH [id number] LUZ MARINA Albuterol/Ipratropium (Duoneb 3 Mg/0.5 Mg (3 Ml) Ud) 3 ml IH Q2H PRN PRN Reason: Shortness of Breath Budesonide (Pulmicort Respules) 0.5 mg IH [id number] LUZ MARINA Furosemide (Lasix) 40 mg IVP DAILY [facility] Last Admin: 06/27/17 09:33 Dose: 40 mg Methylprednisolone (Solu-Medrol) 40 mg IVP Q8H [facility] Last Admin: 06/27/17 09:33 Dose: 40 mg Physical Exam - Constitutional Appears: Chronically Ill - Head Exam Head Exam: NORMAL INSPECTION - ENT Exam ENT Exam: Mucous Membranes Moist - Neck Exam Neck exam: Negative for: Meningismus - Respiratory Exam Respiratory Exam: Decreased Breath Sounds - Cardiovascular Exam Cardiovascular Exam: +S1, +S2 - GI/Abdominal Exam GI & Abdominal Exam: Soft. absent: Tenderness Results - Vital Signs Recent Vital Signs: Last Vital Signs Temp 97.5 F L 06/27/17 06:00 Pulse 110 H 06/27/17 06:00 Resp 21 06/27/17 06:00 BP 95/50 L 06/27/17 09:33 Pulse Ox 90 L 06/27/17 06:00 - Labs Result Diagrams: 06/26/17 18:00 06/26/17 18:00 Labs: Laboratory Results - last 24 hr 06/27/17 06/27/17 06:00 07:28 POC Glucose (mg/dL) 128 H Blood Type Confirm O POSITIVE Assessment & Plan - Assessment and Plan (Free Text) Plan: Assessment Sepsis due to left lower HCAP, probably post-obstructive pneumonitis in a patient with poorly-differentiated squamous cell lung CA with cavitary lesion extensive smoking history Plan Started the patient on vancomycin, merrem and Zithromax pending blood, sputum cx ; reviewed CT chest will monitor clinically overall prognosis is poor
[2017-06-27] MEDS ORDERED: Meropenem 1 GM in Sodium Chloride 0.9% 100 ML IVPB SCH (14:00)
--- NOTE | 2017-06-27 20:36 | CARD ---
APPROVED REPORT EKG Measurement Heart [id number] <Conclusion> Sinus tachycardia Possible Left atrial enlargement Rightward axis RSR' or QR pattern in V1 suggests right ventricular conduction delay Borderline ECG
[2017-06-27] MEDS: Budesonide 0.5 mg/2 ml Inhal Susp UD IH SCH (22:00)
[2017-06-28] MEDS: MethylPREDNISolone 40 mg Vial IVP SCH ×3 (01:53→18:24)
[2017-06-28] MEDS: Meropenem IV 1 gm in NS 50 ML IVPB SCH ×3 (01:53→17:46)
[2017-06-28] MEDS: Albuterol-Ipratrop 3 mg / 0.5 (3 ml) UD IH SCH ×4 (02:09→19:22)
[2017-06-28] MEDS: Budesonide 0.5 mg/2 ml Inhal Susp UD IH SCH ×2 (08:56→19:22)
[2017-06-28] MEDS: Vancomycin 1gm in NS 250ml 1 GM/250 ML BAG IVPB SCH ×2 (10:24→21:59)
[2017-06-28] MEDS: Azithromycin 500MG/NS 250ml 500 MG/250 ML BAG IVPB SCH (10:25)
--- NOTE | 2017-06-28 13:37 | PN ---
DATE: 06/28/2017 PULMONARY PROGRESS NOTE SUBJECTIVE: The patient was seen and examined at bedside. She is receiving inhalation treatment with Duoneb. She is currently on wide antibiotic coverage with azithromycin, vancomycin, and meropenem. She is also on inhaled steroids. LABORATORY DATA: No new laboratory data. PHYSICAL EXAMINATION: VITAL SIGNS: Temperature 98.2, pulse 107, respirations 18, pulse oxymetry 94 on room air, blood pressure is 111/70. HEAD: Normocephalic and atraumatic. NECK: Supple with no jugular vein distensions. CHEST: Symmetrical. CARDIOVASCULAR: S1, S2. No S3. Irregular. LUNGS: Diminished breath sounds bilaterally with few end-expiratory wheezes. GI: Soft, nontender. No organomegaly. EXTREMITIES: No pedal edema. SKIN: Clear with no skin rashes. No cyanosis. NEUROLOGIC: No focal deficits. ASSESSMENT: 1. Exacerbation of severe chronic obstructive pulmonary disease. 2. Acute bronchitis. 3. Advanced nonsmall-cell carcinoma of the lungs. 4. Leukocytosis. PLAN: The patient has improved since yesterday. She is less shortness of breath. She had a CT scan of the chest showing large area of consolidation with central cavitation in the left lung. This cavitary mass is actually nonsmall cell carcinoma. Dr. Stuart is administering her antibiotic in order to attempt to improve this tumor abscess situation. Her COPD started to improve on current regimen with steroids, antibiotics, and nebulizer treatments. Claudio Denise MD [place]
[2017-06-28 15:36] LABS: HEMOGLOBIN 11.1 g/dL (12.0-16.0); MEAN CELL VOLUME 75.4 fl (80.0-105.0); MEAN CORPUSCULAR HEMOGLOBIN 22.2 pg (25.0-35.0); MEAN CORPUSCULAR HGB CONC 29.4 g/dl (31.0-37.0); MEAN PLATELET VOLUME 8.1 fl (7.0-11.0); RED CELL DISTRIBUTION WIDTH 18.6 % (11.5-14.5); WHITE BLOOD COUNT 22.1 10^3/ul (4.5-11.0)
--- NOTE | 2017-06-28 18:52 | PN ---
DATE: 06/28/2017 SUBJECTIVE: The patient is in bed, was seen earlier today in 566, bed 3. She appears to be comfortable. No fevers and chills. PHYSICAL EXAMINATION: VITAL SIGNS: Temperature is 98, blood pressure is 111/70, respiratory 16. HEENT: Unremarkable. NECK: Supple. LUNGS: Have decreased breath sounds. HEART: Normal S1, S2. ABDOMEN: Soft. LABORATORY EXAMINATION: Reveals a white count is 20,000, hemoglobin of 12. Chemistries are noted. The patient's MCV is 73, platelets of 528 and alkaline phosphatase of 212. BNP is 44,900 and urinalysis is noted and microbiology reveals the blood cultures no growth and review of orders reveals the sputum culture is pending. The patient is on meropenem and vancomycin and IV Zithromax. The patient had a CAT scan of the chest. A large area of consolidation is noted. Central cavitation is noted. ASSESSMENT AND PLAN: This is a 61-year-old female with extensive history of smoking, lung cancer diagnosed in 04/2017, worsening shortness of breath and had a biopsy, confirmed poorly differentiated squamous cell cancer, cavitary lesion. With sepsis due to left lower lobe healthcare-associated pneumonia, post obstructive pneumonitis currently on vancomycin, meropenem, and Zithromax. We will follow closely with you. Eliezer Stuart MD
[2017-06-29] MEDS: Albuterol-Ipratrop 3 mg / 0.5 (3 ml) UD IH SCH ×4 (01:13→22:21)
[2017-06-29] MEDS: MethylPREDNISolone 40 mg Vial IVP SCH ×3 (02:33→17:45)
[2017-06-29] MEDS: Meropenem IV 1 gm in NS 50 ML IVPB SCH ×4 (02:35→22:14)
[2017-06-29] MEDS: Budesonide 0.5 mg/2 ml Inhal Susp UD IH SCH ×2 (07:56→22:21)
[2017-06-29] MEDS: Vancomycin 1gm in NS 250ml 1 GM/250 ML BAG IVPB SCH ×2 (10:02→23:46)
[2017-06-29] MEDS ORDERED: guaiFENesin 100 mg/5 ml Syrup UD PO PRN (10:56)
[2017-06-29 12:05] LABS: HEMOGLOBIN 12.1 g/dL (12.0-16.0); MEAN CELL VOLUME 74.1 fl (80.0-105.0); MEAN CORPUSCULAR HEMOGLOBIN 21.9 pg (25.0-35.0); MEAN CORPUSCULAR HGB CONC 29.5 g/dl (31.0-37.0); MEAN PLATELET VOLUME 8.3 fl (7.0-11.0); RBC 5.53 10^6/uL (3.5-6.1); RED CELL DISTRIBUTION WIDTH 20.9 % (11.5-14.5)
[2017-06-29] MEDS: Azithromycin 500MG/NS 250ml 500 MG/250 ML BAG IVPB SCH (12:13)
[2017-06-29 13:35] LABS: ALB/GLOB RATIO 0.8 (1.1-1.8); ALBUMIN 3.8 g/dL (3.0-4.8); ALT/SGPT 29 U/L (7-56); AST/SGOT 50 U/L (14-36); BLOOD UREA NITROGEN 19 mg/dL (7-21); CALCIUM 9.5 mg/dL (8.4-10.5); GFR AFRICAN-AMERICAN > 60; GFR NON-AFRICAN AMERICAN > 60
[2017-06-29] MEDS: Albuterol-Ipratrop 3 mg / 0.5 (3 ml) UD IH PRN (18:19)
[2017-06-29] MEDS: Promethazine/Cod 6.25mg-10mg/5ml Syr UD PO PRN (22:16)
[2017-06-30] MEDS: Albuterol-Ipratrop 3 mg / 0.5 (3 ml) UD IH SCH ×4 (02:03→19:59)
[2017-06-30] MEDS: MethylPREDNISolone 40 mg Vial IVP SCH ×3 (02:29→22:28)
--- NOTE | 2017-06-30 02:49 | PN ---
DATE: 06/29/2017 SUBJECTIVE: The patient is seen earlier today in 566, bed 3. No fevers. No chills. Doing better. PHYSICAL EXAMINATION: VITAL SIGNS: Temperature is 98, blood pressure is 102/70, and respiratory rate of 16. HEENT: Unremarkable. NECK: Supple. LUNGS: Decreased breath sounds. HEART: Normal S1 and S2. ABDOMEN: Soft. LABORATORY DATA: Reveals white count of 20,000, hemoglobin of 12, and platelets of 588. Chemistry reveals BUN of 19, creatinine of 0.6, and procalcitonin of 0.05. Urinalysis is noted. Influenza is negative. Microbiology reveals the blood cultures are negative. ASSESSMENT AND PLAN: This is a 61-year-old female seen earlier this morning with extensive history of smoking, lung cancer diagnosed in 04/2017 with worsening of shortness of breath. Biopsy confirmed the poorly differentiated squamous cell cancer, cavitary lesion, sepsis due to left lower lobe healthcare-associated pneumonia, post obstructive pneumonitis, on vancomycin, meropenem, and Zithromax, with negative blood cultures and meropenem is active, vancomycin is active, and azithromycin is also active. The patient with procalcitonin of 0.05. Dr. Claudio Denise's note is reviewed from yesterday. The patient with persistent leukocytosis. We will switch the Zithromax to p.o. The patient is also on Solu-Medrol. Eliezer Stuart MD
[2017-06-30] MEDS: Meropenem IV 1 gm in NS 50 ML IVPB SCH ×3 (05:18→22:28)
[2017-06-30] MEDS: Budesonide 0.5 mg/2 ml Inhal Susp UD IH SCH ×2 (07:28→19:59)
[2017-06-30] MEDS ORDERED: Gadodiamide 287 MG/ML VIAL (15ML) IV ONE (10:37)
--- NOTE | 2017-06-30 10:52 | PN ---
DATE: 06/30/2017 PULMONARY NOTE SUBJECTIVE: The patient appears comfortable this morning. She is not short of breath at rest. OBJECTIVE: VITALS: Temperature is 98.2, pulse this morning is approximately 88, respiratory rate 20, blood pressure 116/79. Oxygen saturation on room air is 93%. HEENT: Normocephalic, atraumatic. No JVD. CARDIOVASCULAR: Positive S1, S2. No S3 gallop. LUNGS: Decreased breath sounds at the bases. Less rhonchi. Less wheezing. EXTREMITIES: Positive for edema. No cyanosis, no clubbing. Calves are nontender to palpation. GI: Abdomen is soft, nontender, and nondistended. Bowel sounds are positive. SKIN: No acute rash. NEUROLOGIC: Limited at the present time. IMPRESSION: 1. Acute bronchitis. 2. Advanced chronic obstructive pulmonary disease. 3. Advanced/extensive non-small cell cancer of the left lung. 4. Leukocytosis. PLAN: The patient appears much more comfortable this morning. She is not short of breath at rest. She does state to feeling much better overall. On physical exam, her bronchospasm is definitely less. In addition, the alveolar-arterial gradient is also less. I will continue the current nebulizer treatments and decrease the intravenous steroids this morning. The patient remains on antibiotic therapy - as per Infectious Disease. There are no temperatures noted. Cultures are so far negative. Input by Hematology/Oncology is also noted. Dr. Dez Laird (Interventional Radiology) has been called on the case for an adrenal mass biopsy. Clinical status of the patient is definitely improved - compared to the initial presentation. However, unfortunately, the future status/prognosis for this patient remains poor. I will discuss the above with the attending physician. Amadou Mueller MD [place]
[2017-06-30] MEDS: Vancomycin 1gm in NS 250ml 1 GM/250 ML BAG IVPB SCH (11:27)
--- NOTE | 2017-06-30 11:32 | MRI ---
PROCEDURE: MRI BRAIN WITH AND WITHOUT CONTRAST HISTORY: r/o mets: lung cancer COMPARISON: None. TECHNIQUE: Multiplanar, multisequence MR images of the brain were obtained with and without intravenous contrast enhancement. 15 cc of Omniscan FINDINGS: HEMORRHAGE: None DWI: No evidence of an acute or early subacute infarction. BRAIN PARENCHYMA: No mass,mass effect or edema. No atrophy or chronic microvascular ischemic changes. ENHANCEMENT: No abnormal intracranial enhancement. VENTRICLES: Unremarkable. No hydrocephalus. CRANIUM: Unremarkable. ORBITS: Grossly unremarkable. PARANASAL SINUSES/MASTOIDS: Clear VASCULAR SYSTEM: Skull base flow voids intact. OTHER FINDINGS: None . IMPRESSION: No evidence of metastatic disease
[2017-06-30] MEDS: Promethazine/Cod 6.25mg-10mg/5ml Syr UD PO PRN (16:32)
--- NOTE | 2017-06-30 20:12 | PN ---
DATE: 06/30/2017 SUBJECTIVE: The patient is in bed in no acute distress, nontoxic. No fevers and chills. PHYSICAL EXAMINATION: VITAL SIGNS: Temperature is 98, blood pressure is 120/70, respiratory rate of 16. HEENT: Unremarkable. NECK: Supple. LUNGS: Decreased breath sounds. HEART: Normal S1 and S2. ABDOMEN: Soft, nontender. LABORATORY EXAMINATION: Reveals the patient's white count of 20,000, hemoglobin of 12, platelets of 588. Chemistries are noted. Procalcitonin is less than 0.05. Microbiology is noted and blood cultures are negative. The patient had an MRI of the brain which reveals no evidence of metastatic disease. Dr. Mueller's progress note is appreciated. Review of orders reveals the patient to be on meropenem, p.o. Zithromax and IV vancomycin. The patient is also on Solu-Medrol. ASSESSMENT AND PLAN: This is a 61-year-old female seen earlier this morning in room 666, bed 3, with a recent diagnosis of lung cancer in 04/2017. 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 The patient with persistent leukocytosis of 20,000. However, the patient is on Solu-Medrol. We will discontinue the vancomycin since the blood cultures are negative and discontinue azithromycin also. Continue the meropenem and use doxycycline. Repeat the procalcitonin, the initial one was negative. We will follow with you. Today is day number 4 of antibiotics. Eliezer Stuart MD
--- NOTE | 2017-07-01 00:07 | PN ---
DATE: 06/30/2017 SUBJECTIVE: The patient has no complaints of any chest pain. No shortness of breath. No headaches or dizziness. PHYSICAL EXAMINATION: VITAL SIGNS: Temperature is 99, pulse of 100, blood pressure 169/96, and respirations 22. GENERAL: The patient is lying in bed, flat, comfortable. HEENT: No oral lesion. Anicteric sclerae. Moist mucosa. NECK: No JVD, adenopathy, or thyromegaly. CARDIOVASCULAR: S1 and S2, regular. No murmurs, rubs, or gallops. LUNGS: Clear to auscultation bilaterally. No wheeze, rales, or rhonchi. ABDOMEN: Bowel sounds are positive, soft, nontender and nondistended. EXTREMITIES: No cyanosis, clubbing or edema. LABORATORY DATA: Brain MRI done showed no evidence of metastatic disease. ASSESSMENT: 1. [id number] cancer of the lung. 2. Acute chronic obstructive pulmonary disease. 3. Healthcare-associated pneumonia. 4. Postobstructive pneumonitis. 5. Mediastinal lymph nodes. 6. Left pleural effusion. PLAN: The patient is currently comfortable. She is being followed by Dr. Wood from Oncology. The patient is on doxycycline for antibiotics. She is receiving nebulizer treatment. The patient is on meropenem for antibiotics. She is on Solu-Medrol by Dr. Meuller. I did review the notes from the consultants. The patient is willing to continue to follow Dr. Wood for her Oncology followup. I did speak to Dr. Wood today regarding the patient. We will get physical therapy evaluation done. Alejandro Miranda MD
[2017-07-01] MEDS: Albuterol-Ipratrop 3 mg / 0.5 (3 ml) UD IH SCH ×4 (01:36→21:42)
[2017-07-01] MEDS: Meropenem IV 1 gm in NS 50 ML IVPB SCH ×3 (06:35→22:50)
[2017-07-01] MEDS: Budesonide 0.5 mg/2 ml Inhal Susp UD IH SCH ×2 (07:57→21:42)
[2017-07-01] MEDS ORDERED: Midazolam 2 MG/2 ML VIAL ONE (08:38)
--- NOTE | 2017-07-01 08:43 | PN ---
DATE: 07/01/2017 PULMONARY PROGRESS NOTE SUBJECTIVE: The patient appears comfortable this morning. She is not short of breath at rest. PHYSICAL EXAMINATION: VITAL SIGNS: Last temperature recorded is 99.0, pulse this morning is 88, respiratory rate is 18/20, and blood pressure is 169/96. Oxygen saturation on nasal cannula is 95%. HEENT: Normocephalic and atraumatic. NECK: No JVD. CARDIOVASCULAR: Positive S1 and S2. No S3 gallop. LUNGS: Improved breath sounds at the bases. Much less rhonchi. Much less wheezing. EXTREMITIES: Positive edema. No cyanosis and no clubbing. Calves are nontender to palpation. GASTROINTESTINAL: Abdomen is soft, nontender and nondistended. Bowel sounds are positive. SKIN: No acute rash. NEUROLOGIC: Exam is limited at the present time. IMPRESSION 1. Acute bronchitis. 2. Advanced chronic obstructive pulmonary disease. 3. Advanced/extensive non-small cell cancer of the left lung. 4. Leukocytosis. PLAN: The patient appears comfortable this morning. She is not short of breath at rest. She does state to feeling much better overall. On physical exam, her bronchospasm continues to slowly resolve. In addition, the alveolar arterial gradient also continues to lessen/improve. I will continue with the current nebulizer treatments and decrease the intravenous steroids this morning. The patient remains on antibiotic therapy - as per Infectious Disease. Input by Dr. Stuart is noted. Input by Hematology/Oncology is also noted. The patient is tentatively scheduled for an adrenal nodule biopsy. Clinical status of the patient is significantly improved - compared to the initial presentation. However, again, unfortunately, the future status/prognosis for this patient remains poor. I will discuss the above with the attending physician. Amadou Mueller MD MTDGina
[2017-07-01] MEDS ORDERED: Sodium Chloride 0.45% 1,000 ML IV SCH (09:30)
[2017-07-01] MEDS: MethylPREDNISolone 40 mg Vial IVP SCH ×2 (10:27→22:50)
--- NOTE | 2017-07-01 11:15 | CARD ---
APPROVED REPORT EXAM: Two-dimensional and M-mode echocardiogram with Doppler and color Doppler. Other Information Quality : AverageRhythm : INDICATION EVALUATE CARDIAC STATUS 2D DIMENSIONS RVDd4.3 (2.9-3.5cm)Left Atrium (2D)3.0 (1.6-4.0cm) IVSd1.0 (0.7-1.1cm)LVDd4.1 (3.9-5.9cm) PWd1.2 (0.7-1.1cm)LVDs3.0 (2.5-4.0cm) FS (%) 27.6 %LVEF (%)54.0 (>50%) M-Mode DIMENSIONS Aortic Root3.30 (2.2-3.7cm)Aortic Cusp Exc.1.90 (1.5-2.0cm) Aortic Valve AoV Peak Fyuerhet535.0cm/s Mitral Valve MV E Dtwvhznn95.6cm/sMV A Debwihxv406.0cm/sE/A ratio0.6 TDI Lateral E' Peak V9.55cm/sMedial E' Peak V10.10cm/sE/Lateral E'7.5 E/Medial E'7.1 Pulmonary Valve PV Peak Bakkzbst85.4cm/sPV Peak Grad.3mmHg Tricuspid Valve TR Peak Oggpijkg846oz/sRAP RVWGVRFZ89kmRzFL Peak Gr.29mmHg [id number] LEFT VENTRICLE The left ventricle is normal size. There is normal left ventricular wall thickness. The left ventricular function is normal. The left ventricular ejection fraction is within the normal range. There is normal LV segmental wall motion. RIGHT VENTRICLE The right ventricle is normal size. ATRIA The left atrium size is normal. The right atrium size is normal. The interatrial septum is intact with no evidence for an atrial septal defect. AORTIC VALVE The aortic valve is normal in structure. MITRAL VALVE The mitral valve is normal in structure. Mitral regurgitation is mild. TRICUSPID VALVE The tricuspid valve is normal in structure. There is trace to mild tricuspid regurgitation. PULMONIC VALVE The pulmonary valve is normal in structure. GREAT VESSELS The aortic root is normal in size. PERICARDIAL EFFUSION There is large left pleural effusion. There is no pericardial effusion. <Conclusion> The left ventricle is normal size. There is normal left ventricular wall thickness. The left ventricular function is normal. Mitral regurgitation is mild. There is trace to mild tricuspid regurgitation. There is large left pleural effusion.
--- NOTE | 2017-07-01 11:42 | PN ---
DATE: 07/01/2017 SUBJECTIVE: The patient has no complaints of any chest pain or shortness of breath. PHYSICAL EXAMINATION VITAL SIGNS: Temperature of 99, pulse of 109, blood pressure of 116/96, and respirations of 22. GENERAL: The patient is lying in bed, flat, comfortable. HEENT: No oral lesion. Anicteric sclerae. Moist mucosa. NECK: No JVD, adenopathy, or thyromegaly. CARDIOVASCULAR: S1 and S2, regular. No murmurs, rubs, or gallops. LUNGS: Clear to auscultation bilaterally. No wheeze, rales, or rhonchi. ABDOMEN: Bowel sounds are positive, soft, nontender and nondistended. EXTREMITIES: No cyanosis, clubbing or edema. ASSESSMENT: 1. Non-small cell cancer of the lung. 2. Acute chronic obstructive pulmonary disease. 3. Healthcare associated pneumonia. 4. Post obstructive pneumonitis. 5. Mediastinal lymph node. 6. Left pleural effusion. PLAN: The patient is on doxycycline for antibiotics. She is on Lasix daily. She is on meropenem for antibiotics. She is on Solu-Medrol, it is being tapered. I did speak to Dr. Mueller regarding the case. The patient is going for CT guided adrenal biopsy. Alejandro Miranda MD
--- NOTE | 2017-07-01 13:56 | CT ---
PROCEDURE: CT guided left adrenal biopsy. HISTORY: Lung carcinoma. 2.2 cm left adrenal mass. Evaluate for metastasis PHYSICIAN(S): Dez Laird MD. TECHNIQUE: The relative risks and indications of the procedure were explained to the patient and consent obtained. The patient was placed in a left decubitus position on the CT scanner and preliminary images through the upper abdomen obtained. Conscious sedation and monitoring were provided throughout the procedure by a nurse. There is a 2.2 cm solid mass in the left adrenal gland. A left posterior paraspinal approach was selected and the area prepped and draped in the usual sterile fashion. 1% Xylocaine was used to anesthetize the skin and soft tissues. A 17-gauge guiding needle was advanced into the 2.2 cm left adrenal mass. Its position was confirmed with CT. Using coaxial technique, multiple core biopsies were obtained. The postprocedure images show no evidence of significant hemorrhage. IMPRESSION: 1. CT-guided left adrenal biopsy as described above.
--- NOTE | 2017-07-01 14:06 | RAD ---
HISTORY: lt adrenal bx, r/o PTX COMPARISON: 06/26/2017 FINDINGS: LUNGS: Opacity at left base likely reflects pleural effusion. Cannot exclude superimposed consolidation at left base. No gross change from prior examination. No right pleural effusion or consolidation appreciated. PLEURA: No pneumothorax. CARDIOVASCULAR: Normal. OSSEOUS STRUCTURES: No significant abnormalities. VISUALIZED UPPER ABDOMEN: Normal. OTHER FINDINGS: None. IMPRESSION: No pneumothorax. Persistent left pleural effusion.
--- NOTE | 2017-07-01 23:11 | CP.PCM.PN ---
Subjective - Date & Time of Evaluation Date of Evaluation: 06/30/17 Time of Evaluation: 10:00 - Subjective Subjective: Shortness of breath improved. Cough improved. No chest pain. No hemoptysis. No fever, abdominal pain. Objective - Vital Signs/Intake and Output Vital Signs (last 24 hours): Temp Pulse Resp BP Pulse Ox 98.4 F 110 H 20 122/78 96 07/01/17 14:00 07/01/17 14:00 07/01/17 14:00 07/01/17 14:00 07/01/17 14:00 Intake and Output: 07/01/17 07/02/17 18:59 06:59 Intake Total 75 Balance 75 - Medications Medications: Current Medications Acetaminophen (Tylenol 325mg Tab) 650 mg PO Q4 PRN PRN Reason: Pain, Mild (1-3) Last Admin: 07/01/17 22:52 Dose: 650 mg Albuterol/Ipratropium (Duoneb 3 Mg/0.5 Mg (3 Ml) Ud) 3 ml IH [id number] [facility] Last Admin: 07/01/17 21:42 Dose: 3 ml Albuterol/Ipratropium (Duoneb 3 Mg/0.5 Mg (3 Ml) Ud) 3 ml IH Q2H PRN PRN Reason: Shortness of Breath Last Admin: 06/29/17 18:19 Dose: 3 ml Budesonide (Pulmicort Respules) 0.5 mg IH [id number] [facility] Last Admin: 07/01/17 21:42 Dose: 0.5 mg Doxycycline Hyclate (Doryx) 100 mg PO Q12 [facility] PRN Reason: Protocol Stop: 07/09/17 22:01 Last Admin: 07/01/17 22:52 Dose: 100 mg Furosemide (Lasix) 40 mg IVP DAILY [facility] Last Admin: 07/01/17 10:28 Dose: 40 mg Guaifenesin (Robitussin) 100 mg PO Q4H PRN PRN Reason: Cough Last Admin: 06/29/17 11:22 Dose: 100 mg Meropenem (Merrem Iv 1 Gm Premix) 50 mls @ 100 mls/hr IVPB Q8 [facility] Last Admin: 07/01/17 22:50 Dose: 100 mls/hr Methylprednisolone (Solu-Medrol) 30 mg IVP Q12 [facility] Last Admin: 07/01/17 22:50 Dose: 30 mg Ondansetron HCl (Zofran Inj) 4 mg IVP Q6H PRN PRN Reason: Nausea/Vomiting Promethazine HCl/Codeine (Phenergan/Codeine Oral Syrup) 5 ml PO Q6H PRN PRN Reason: Cough and congestion Last Admin: 06/30/17 16:32 Dose: 5 ml Zolpidem Tartrate (Ambien) 5 mg PO HS PRN; Protocol PRN Reason: Insomnia - Labs Labs: 06/29/17 11:43 06/29/17 11:43 PT 13.9 SECONDS (9.4-12.5) H 06/26/17 18:00 INR 1.21 (0.93-1.08) H 06/26/17 18:00 APTT 30.7 Seconds (25.1-36.5) 06/26/17 18:00 - Constitutional Appears: Chronically Ill - Head Exam Head Exam: ATRAUMATIC, NORMAL INSPECTION, NORMOCEPHALIC - Eye Exam Eye Exam: Normal appearance Pupil Exam: NORMAL ACCOMODATION - ENT Exam ENT Exam: Mucous Membranes Moist, Normal Exam - Neck Exam Neck Exam: Normal Inspection - Respiratory Exam Respiratory Exam: Clear to Ausculation Bilateral, Rales, Rhonchi, NORMAL BREATHING PATTERN - Cardiovascular Exam Cardiovascular Exam: Diastolic murmur, REGULAR RHYTHM, +S1, +S2 - GI/Abdominal Exam GI & Abdominal Exam: Soft, Normal Bowel Sounds - Extremities Exam Extremities Exam: Normal Inspection - Back Exam Back Exam: NORMAL INSPECTION - Neurological Exam Neurological Exam: Alert, Normal Gait, Oriented x3 - Skin Skin Exam: Normal Color, Warm Assessment and Plan - Assessment and Plan (Free Text) Plan: 1. Lung Cancer left lower lobe, cavitory lesion : Biopsy consistent with squamous cell cancer. left adrenal nodule suspicious for metastatic cancer. CT guided biopsy scheduled for tomorrow. Port placement scheduled for chemotherapy. 2. Cough : improved with phenergan/codeine. 3. Echocardiogram for evaluation of cardiac functions prior to chemo. 4. Renal : stable. 5. Blood counts stable.
--- NOTE | 2017-07-02 05:30 | PN ---
DATE: 07/01/2017 SUBJECTIVE: The patient is in bed, in no acute distress, was seen earlier this morning in room 566, bed 3. No fevers, no chills. PHYSICAL EXAMINATION: VITAL SIGNS: Temperature is 98, blood pressure is 120/70, respiratory rate 20, heart rate of 110. HEENT: Unremarkable. NECK: Supple. LUNGS: Have decreased breath sounds. HEART: Normal S1, S2. ABDOMEN: Soft. LABORATORY DATA: Revealed a white count of 20,000; hemoglobin of 12; BUN of 19; creatinine of 0.6; and procalcitonin less than 0.05 x2. Microbiology reveals the blood cultures are negative. Review of orders revealed the patient's urine Legionella antigen is pending and pathology is pending. Patient is on p.o. doxycycline, IV meropenem, and IV Solu-Medrol. Patient had a chest x-ray this morning, normal opacity at the left lung base pleural effusion, and Dr. Anne's note is reviewed from this morning. Patient had an adrenal biopsy. CAT-scan directed biopsy by Dr. Dez Laird. Dr. Anne's note is reviewed. ASSESSMENT AND PLAN: This is a 61-year-old female who did have a recent diagnosis of lung cancer in 04/2017, biopsy confirmed poorly differentiated squamous cell cancer, cavitary lesion, and sepsis due to left lower lobe healthcare-associated pneumonia, post obstructive pneumonitis, negative blood cultures , negative procalcitonin, persistent leukocytosis and may be discontinue the meropenem in the next 24 hours. Today is day # 5 of antibiotics, doxycycline and meropenem. Patient is also on Solu-Medrol. Overall prognosis poor. Eliezer Stuart MD
[2017-07-02] MEDS: Meropenem IV 1 gm in NS 50 ML IVPB SCH ×2 (06:30→13:23)
[2017-07-02 07:13] LABS: HEMOGLOBIN 11.6 g/dL (12.0-16.0); MEAN CELL VOLUME 76.3 fl (80.0-105.0); MEAN CORPUSCULAR HGB CONC 28.9 g/dl (31.0-37.0); MEAN PLATELET VOLUME 8.4 fl (7.0-11.0); RBC 5.27 10^6/uL (3.5-6.1); RED CELL DISTRIBUTION WIDTH 18.5 % (11.5-14.5); WHITE BLOOD COUNT 18.9 10^3/ul (4.5-11.0)
[2017-07-02] MEDS: Albuterol-Ipratrop 3 mg / 0.5 (3 ml) UD IH SCH ×2 (07:31→14:09)
[2017-07-02] MEDS: Budesonide 0.5 mg/2 ml Inhal Susp UD IH SCH (07:32)
[2017-07-02 07:48] LABS: ALB/GLOB RATIO 0.9 (1.1-1.8); ALBUMIN 3.5 g/dL (3.0-4.8); ALT/SGPT 47 U/L (7-56); AST/SGOT 38 U/L (14-36); BLOOD UREA NITROGEN 21 mg/dL (7-21); CALCIUM 8.8 mg/dL (8.4-10.5); GFR AFRICAN-AMERICAN > 60; GFR NON-AFRICAN AMERICAN > 60
--- NOTE | 2017-07-02 09:11 | PN ---
DATE: 07/02/2017 PULMONARY PROGRESS NOTE SUBJECTIVE: The patient appears very comfortable this morning. She is not short of breath at rest. PHYSICAL EXAMINATION: VITAL SIGNS: Temperatures last recorded is 98.4, pulse this morning is approximately 88, respiratory rate is 18, and blood pressure is 122/78. Oxygen saturation on nasal cannula is 96%. HEENT: Normocephalic and atraumatic. NECK: No JVD. CARDIOVASCULAR: Positive S1 and S2. No S3 gallop. LUNGS: Improved breath sounds at the bases. Much less/minimal rhonchi. No wheezing this morning. EXTREMITIES: Positive for edema. No cyanosis and no clubbing. Calves are nontender to palpation. GASTROINTESTINAL: Abdomen is soft, nontender and nondistended. Bowel sounds are positive. SKIN: No acute rash. NEUROLOGIC: Exam is limited at the present time. IMPRESSION 1. Acute bronchitis. 2. Advanced chronic obstructive pulmonary disease. 3. Advanced/extensive non-small cell cancer of the left lung. 4. Leukocytosis. PLAN: The patient appears very comfortable this morning. She is not short of breath at rest. She is certainly less dyspneic on exertion. She states to feeling much better overall. On physical exam, her bronchospasm continues to resolve. In addition, the alveolar-arterial gradient also continues to resolve. I will continue the current nebulizer treatments and change to oral steroids this morning. The patient remains on antibiotic therapy - as per infectious disease. The patient is also status post left adrenal mass biopsy. Input by Dr. Dez Laird is noted. Clinically, the patient has improved significantly - while in the hospital. However, again, unfortunately, the overall status/prognosis for this patient remains poor. I will discuss the above with the attending physician. Amadou Mueller MD MTDGina
[2017-07-02] MEDS: Albuterol-Ipratrop 3 mg / 0.5 (3 ml) UD IH PRN (14:00)
[2017-07-02] MEDS ORDERED: Lidocaine 2% Inj (20ml) ONE ×2 (15:07→15:08)
[2017-07-02] MEDS ORDERED: HEPARIN SODIUM/NS 1,000 ML IV ONE (15:07)
[2017-07-02] MEDS ORDERED: Midazolam 2 MG/2 ML VIAL ONE ×2 (15:39→15:50)
[2017-07-02 16:42] VITALS: TEMP 98.2
[2017-07-02 16:47] VITALS: O2SAT 96
[2017-07-02 17:21] VITALS: RESP 28
[2017-07-02 18:01] VITALS: BP 106/67; PULSE 92
--- NOTE | 2017-07-02 19:58 | VASCULAR ---
PROCEDURE: Ultrasound and fluoroscopic right internal jugular venous access port. CLINICAL HISTORY: Metastatic lung carcinoma.Venous port for chemotherapy. PHYSICIAN(S): Dez Laird M.D. TECHNIQUE: The relative risks and indications of the procedure were explained to the patient and consent obtained. The patient was placed supine on the arteriogram table and the right neck and chest prepped and draped in the usual sterile fashion. Conscious sedation monitoring was provided throughout the procedure by a nurse. Antibiotics were given prior to the procedure. Under direct ultrasound guidance, the right internal jugular vein was punctured with a micro-puncture set. A 0.035 angled Glidewire was advanced into the IVC. A 4 cm incision was made below the right clavicle and the pocket blunted dissected. A 8 Welsh single-lumen catheter, 22 cm long, was advanced to the SVC/RA junction. The catheter was trimmed and attached to the port. The port aspirates and injects easily. The port was placed in the pocket and closed in 2 layers. The patient tolerated the procedure well. IMPRESSION: Ultrasound and fluoroscopically placed right internal jugular venous access port.
--- NOTE | 2017-07-02 23:37 | CP.PCM.PN ---
Subjective - Date & Time of Evaluation Date of Evaluation: 07/02/17 Time of Evaluation: 10:00 - Subjective Subjective: SOB improved. Complaining of back pain. No nausea/vomiting. Cough improved . She underwent CT guided biopsy of left adrenal gland. Objective - Vital Signs/Intake and Output Vital Signs (last 24 hours): Temp Pulse Resp BP Pulse Ox 98.2 F 92 H 28 H 106/67 96 07/02/17 18:00 07/02/17 18:00 07/02/17 18:00 07/02/17 18:00 07/02/17 18:00 Intake and Output: 07/02/17 07/03/17 18:59 06:59 Intake Total 600 Balance 600 - Medications Medications: Current Medications Acetaminophen (Tylenol 325mg Tab) 650 mg PO Q4 PRN PRN Reason: Pain, Mild (1-3) Last Admin: 07/02/17 11:59 Dose: 650 mg Albuterol/Ipratropium (Duoneb 3 Mg/0.5 Mg (3 Ml) Ud) 3 ml IH [id number] [facility] Last Admin: 07/02/17 14:09 Dose: Not Given Albuterol/Ipratropium (Duoneb 3 Mg/0.5 Mg (3 Ml) Ud) 3 ml IH Q2H PRN PRN Reason: Shortness of Breath Last Admin: 07/02/17 14:00 Dose: 3 ml Budesonide (Pulmicort Respules) 0.5 mg IH [id number] [facility] Last Admin: 07/02/17 07:32 Dose: 0.5 mg Doxycycline Hyclate (Doryx) 100 mg PO Q12 [facility] PRN Reason: Protocol Stop: 07/09/17 22:01 Last Admin: 07/02/17 10:33 Dose: 100 mg Furosemide (Lasix) 40 mg IVP DAILY [facility] Last Admin: 07/02/17 10:33 Dose: 40 mg Guaifenesin (Robitussin) 100 mg PO Q4H PRN PRN Reason: Cough Last Admin: 06/29/17 11:22 Dose: 100 mg Ondansetron HCl (Zofran Inj) 4 mg IVP Q6H PRN PRN Reason: Nausea/Vomiting Prednisone (Prednisone Tab) 40 mg PO DAILY [facility] Last Admin: 07/02/17 10:33 Dose: 40 mg Promethazine HCl/Codeine (Phenergan/Codeine Oral Syrup) 5 ml PO Q6H PRN PRN Reason: Cough and congestion Last Admin: 06/30/17 16:32 Dose: 5 ml Zolpidem Tartrate (Ambien) 5 mg PO HS PRN; Protocol PRN Reason: Insomnia - Labs Labs: 07/02/17 06:30 07/02/17 06:30 PT 13.9 SECONDS (9.4-12.5) H 06/26/17 18:00 INR 1.21 (0.93-1.08) H 06/26/17 18:00 APTT 30.7 Seconds (25.1-36.5) 06/26/17 18:00 - Constitutional Appears: Chronically Ill - Head Exam Head Exam: ATRAUMATIC, NORMAL INSPECTION, NORMOCEPHALIC - Eye Exam Eye Exam: Normal appearance - ENT Exam ENT Exam: Mucous Membranes Moist - Neck Exam Neck Exam: Normal Inspection - Respiratory Exam Respiratory Exam: Clear to Ausculation Bilateral, NORMAL BREATHING PATTERN - Cardiovascular Exam Cardiovascular Exam: REGULAR RHYTHM, +S1, +S2 - GI/Abdominal Exam GI & Abdominal Exam: Soft, Normal Bowel Sounds - Back Exam Back Exam: NORMAL INSPECTION - Neurological Exam Neurological Exam: Alert, Normal Gait, Oriented x3 - Skin Skin Exam: Normal Color, Warm Assessment and Plan - Assessment and Plan (Free Text) Assessment: 1. lung cancer Stage IV , squamus cell type. left lower lobe large cavitory lesion. Pathology of CT guided biopsy of left adrenal showed squamous cell cancer. port placement today for initiation of chemotherapy. MRI of brain no mets. Echo done. 2. Cough: continue codeine cough syrup. 3. respiratory status improved. 4. Renal ; stable renal functions.
--- NOTE | 2017-07-03 00:08 | PN ---
DATE: 07/02/2017 SUBJECTIVE: The patient is in bed, in no acute distress, nontoxic. PHYSICAL EXAMINATION: VITAL SIGNS: Temperature is 98, blood pressure is 106/60, respiratory rate of 30, heart rate of 102. HEENT: Unremarkable. NECK: Supple. LUNGS: Have decreased breath sounds. HEART: Normal S1, S2. ABDOMEN: Soft and nontender. No organomegaly. No rebound. No guarding. LABORATORY DATA: Revealed a white count of 18,000; hemoglobin of 11; platelets of 401. Chemistries are noted. BUN of 21; creatinine of 0.7; and procalcitonin is 0.05. Urinalysis is noted and serology influenza is negative and urine for Legionella antigen is negative. ASSESSMENT AND PLAN: This is a 61-year-old female with recent diagnosis of lung cancer in 04/2017. 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 We will discontinue meropenem. The patient is also on prednisone. We will discontinue meropenem. We will follow with you. Eliezer Stuart MD
--- NOTE | 2017-07-03 01:52 | PN ---
no note. Alejandro Miranda MD MTDGina
--- NOTE | 2017-07-03 08:15 | PN ---
DATE: 07/03/2017 SUBJECTIVE: The patient has no complaints of any chest pain or shortness of breath. No headache. She was port to be placed and that is why she did not discharge yesterday. PHYSICAL EXAMINATION: VITAL SIGNS: Temperature is 98.2, pulse is 92, blood pressure is 106/67, and respirations of 20. GENERAL: The patient is lying in bed, flat, comfortable. HEENT: No oral lesion. Anicteric sclerae. Moist mucosa. NECK: No JVD, adenopathy, or thyromegaly. CARDIOVASCULAR: S1 and S2, regular. No murmurs, rubs, or gallops. LUNGS: Clear to auscultation bilaterally. No wheeze, rales, or rhonchi. ABDOMEN: Bowel sounds are positive, soft, nontender and nondistended. EXTREMITIES: No cyanosis, clubbing or edema. ASSESSMENT: 1. Non-small cell cancer of the lung. 2. Acute chronic obstructive pulmonary disease, improved. 3. Healthcare associated pneumonia. 4. Post obstructive pneumonitis. 5. Mediastinal lymphadenopathy. 6. Left adrenal mass 2.2 cm status post biopsy. 7. Left pleural effusion. 8. Status post port placement. PLAN: The patient is currently comfortable. She is going to be discharged home today. Please see the discharge summary from yesterday. The patient is on nebulizer treatment, and will continue IV. She is receiving doxycycline for antibiotics. The patient is on IV Lasix daily. Here on current medications; she is receiving prednisone. The patient is on Zofran. She is going to follow with Dr. Wood for her Oncology follow up. Condition is stable. Activities increase as tolerated. Alejandro Miranda MD
--- NOTE | 2017-07-09 04:09 | DS ---
DATE: 07/08/2017 HISTORY OF PRESENT ILLNESS: This is a 61-year-old female who was recently diagnosed with non-small cell cancer. She was admitted to the hospital because of an acute COPD exacerbation and healthcare-associated pneumonia. She had a left adrenal mass that was biopsied that showed that the lung cancer had metastasized. The patient had a port placed and was discharged home to follow up with her oncologist Dr. Wood. The patient currently was uncomfortable. DISCHARGE DIAGNOSES: 1. Non-small cell cancer of the lung. 2. Acute chronic obstructive pulmonary disease, improved. 3. Healthcare-associated pneumonia. 4. Post-obstructive pneumonitis. 5. Mediastinal adenopathy. 6. Left adrenal mass 2.2 cm, status post biopsy. 7. Left pleural effusion. 8. Status post port placement. The patient is going to be on Lasix, I have given her Lasix as an outpatient. She is going to continue with doxycycline. Cancer treatment, she is going to follow with Dr. Wood who is her oncologist. CONDITION: Stable. ACTIVITIES: Increase as tolerated. Alejandro Miranda MD
== END 2017-07-02 19:30 | disposition home or self-care (01) | DRG 871 ==
LOC: ED 17:41 → ERH 23:08 → 2RSO 06-27 01:30 → 5RNO 06-27 18:22
PROVIDERS: ADMIT Internal Medicine Nephrology; ATTEND Internal Medicine Nephrology
PROC: 0GB23ZX Excision of Left Adrenal Gland, Percutaneous Approach, Diagnostic (ICD-10-PCS; principal; 2017-07-02)
PROC: BW21ZZZ Computerized Tomography (CT Scan) of Abdomen and Pelvis (ICD-10-PCS; 2017-07-02)
DX: A41.9 Sepsis, unspecified organism (principal); J18.9 Pneumonia, unspecified organism; J90 Pleural effusion, not elsewhere classified; C79.72 Secondary malignant neoplasm of left adrenal gland; C34.32 Malignant neoplasm of lower lobe, left bronchus or lung; J44.0 Chronic obstructive pulmonary disease with (acute) lower respiratory infection; J44.1 Chronic obstructive pulmonary disease with (acute) exacerbation; E87.70 Fluid overload, unspecified; Y95 Nosocomial condition; J20.9 Acute bronchitis, unspecified; R09.02 Hypoxemia; Z80.6 Family history of leukemia; Z82.49 Family history of ischemic heart disease and other diseases of the circulatory system; Z83.3 Family history of diabetes mellitus; Z87.891 Personal history of nicotine dependence

== ENCOUNTER 2017-07-22 21:05 | Inpatient (IN) | payer OTHER ==
[2017-07-22 21:06] VITALS: BMI 34.5
[2017-07-22] MEDS ORDERED: Albuterol 0.5% Inhal Sol (5 mg/ ml) 20 ml IH STA (22:02)
[2017-07-22] MEDS ORDERED: Albuterol 0.083% Inhal Sol (2.5 mg/3 mL) UD IH STA (22:04)
--- NOTE | 2017-07-22 22:15 | ED PDOC ---
Arrival/HPI - General Chief Complaint: Medical Clearance Time Seen by Provider: 07/22/17 21:56 Historian: Patient - History of Present Illness Narrative History of Present Illness (Text): 07/22/17 22:04 Patient is a 61 yo female presents with friend with history of copd, lung cancer , recently started on chemotherapy, presents to the Emergency Department due to "abnormal kidney function" noted on outpatient blood tests by Dr. Jesika Wood yesterday. Patient received call today that kidney function was worse and to present to the ER. Patient states that she has chronic swelling to both legs but swelling is better than usual today, although patient states she has developed redness to both her legs over past week. She reports cough and shortness of breath with exertion, but believes this is not acutely worse. She reports occasional hemoptysis. She denies chest pain or pleuritic pain. Reports orthopnea. States no change in appearance of her urine. Past Medical History - Infectious Disease Hx of Infectious Diseases: None - Past Medical History Past Medical History: No Previous - Cardiac Hx Cardiac Disorders: No Hx Pacemaker: No - Pulmonary Hx Respiratory Disorders: Yes Hx Chronic Obstructive Pulmonary Disease (COPD): Yes Hx Emphysema: Yes Hx Lung Cancer: Yes - Neurological Hx Neurological Disorder: No Hx Paralysis: No - HEENT Hx HEENT Disorder: No - Renal Hx Renal Disorder: Yes Hx Renal Failure: Yes - Endocrine/Metabolic Hx Endocrine Disorders: No - Hematological/Oncological Hx Blood Disorders: No Hx Blood Transfusions: No Hx Cancer: Yes Hx Chemotherapy: Yes (2--18) - Integumentary Hx Dermatological Disorder: No - Musculoskeletal/Rheumatological Hx Musculoskeletal Disorders: Yes Hx Falls: Yes - Gastrointestinal Hx Gastrointestinal Disorders: No - Genitourinary/Gynecological Hx Genitourinary Disorders: No - Psychiatric Hx Psychophysiologic Disorder: No Hx Emotional Abuse: No Hx Physical Abuse: No Hx Substance Use: No - Surgical History Other/Comment: Breast reduction. R chest port - Anesthesia Hx Anesthesia: Yes Hx Anesthesia Reactions: No Hx Malignant Hyperthermia: No - Suicidal Assessment Feels Threatened In Home Enviroment: No Family/Social History Smoking Status: Former Smoker Hx Alcohol Use: Yes (ocassional) Hx Substance Use: No Allergies/Home Meds Allergies/Adverse Reactions: Allergies No Known Allergies Allergy (Verified 07/22/17 21:15) Home Medications: Home Meds Medication Instructions Recorded Confirmed Albuterol HFA [Ventolin HFA 90 1 puff IH PRN PRN 04/29/17 06/26/17 mcg/actuation (8 g)] Dextroamphetamine/Amphetamine 20 mg PO TID 04/29/17 06/26/17 [Adderall 20 mg Tablet] Lactobacillus Combination No.8 1 cap PO DAILY 04/29/17 06/26/17 [Adult Probiotic] Naproxen Sodium [Aleve] 2 tab PO BID PRN 04/29/17 06/26/17 Review of Systems - Review of Systems Constitutional: Fatigue. absent: Fevers Eyes: absent: Vision Changes ENT: absent: Hearing Changes Respiratory: SOB, Cough, Sputum, Wheezing Cardiovascular: Edema, OROURKE, Orthopnea. absent: Chest Pain, Palpitations, Calf Pain, Syncope Gastrointestinal: absent: Abdominal Pain, Diarrhea, Nausea, Vomiting Musculoskeletal: absent: Back Pain, Neck Pain Skin: Other (erythema to both legs). absent: Rash Neurological: absent: Headache, Dizziness, Focal Weakness Hemo/Lymphatic: absent: Easy Bleeding Psychiatric: absent: Depression Physical Exam Vital Signs Reviewed: Yes Vital Signs Temp Pulse Resp BP Pulse Ox 07/22/17 22:20 100 07/22/17 22:19 101 H 17 115/44 L 92 L 07/22/17 21:15 97.8 F 107 H 20 114/80 94 L Temperature: Afebrile Pulse: Tachycardic Respiratory Rate: Tachypneic Appearance: Positive for: Ill-Appearing Pain Distress: Mild Mental Status: Positive for: Alert and Oriented X 3 - Systems Exam Head: Present: Atraumatic Pupils: Present: PERRL Mouth: Present: Moist Mucous Membranes Pharnyx: No: ERYTHEMA Nose (Internal): Present: Normal Inspection Neck: Present: Normal Range of Motion. No: JVD Respiratory/Chest: Present: Wheezes, Tachypneic, Other (chest wall port with mild erythema to incision, currently no pus or bleeding). No: Respiratory Distress Cardiovascular: Present: Murmurs, Tachycardic Abdomen: No: Tenderness, Distention, Peritoneal Signs Back: No: CVA Tenderness Lower Extremity: No: CALF TENDERNESS Neurological: Present: Motor Func Grossly Intact, Normal Sensory Function Skin: Present: Erythematous Psychiatric: Present: Alert, Normal Insight, Normal Concentration Medical Decision Making ED Course and Treatment: 07/22/17 22:28 Patient's recent admission reviewed. On exam, she is sob with exertion with diffuse wheezing. IV solumedrol and albuterol ordered. Patient's case reviewed with Dr. Wood states outpatient creatinine was 4.0 yesterday. Will repeat labs, obtain EKG, cxr. 07/22/17 23:25 Labs pending. Case endorsed to Dr. Rutherford. - Lab Interpretations Lab Results: Lab Results 07/22/17 22:50: Influenza Typ A,B (EIA) Negative for flu a/b - RAD Interpretation Radiology Orders: 07/22/17 22:01 CHEST PORTABLE [RAD] Stat - Medication Orders Current Medication Orders: Discontinued Medications Albuterol Sulfate (Albuterol 0.083% Inhal Dot (2.5 Mg/3 Ml) Ud) 2.5 mg IH STAT STA Stop: 07/22/17 22:05 Last Admin: 07/22/17 22:50 Dose: 2.5 mg Methylprednisolone (Solu-Medrol) 125 mg IVP STAT STA Stop: 07/22/17 22:03 Last Admin: 07/22/17 22:50 Dose: 125 mg IVP Administration Document 07/22/17 22:50 HI (Rec: 07/22/17 23:09 [id number]) Charges for Administration # of IVP Administrations 1 Disposition/Present on Arrival - Present on Arrival History of DVT/PE: No History of Uncontrolled Diabetes: No Urinary Catheter: No History of Decub. Ulcer: No History Surgical Site Infection Following: None - Disposition Forms: [employer] (Mexican)
[2017-07-22 23:18] LABS: EOS % 0.3 % (1.5-5.0); GRAN # 8.25 (1.4-6.5); GRAN % 85.1 % (50.0-68.0); HEMOGLOBIN 9.6 g/dL (12.0-16.0); LYMPH # 1.3 (1.2-3.4); LYMPH % 13.7 % (22.0-35.0); MEAN CELL VOLUME 69.1 fl (80.0-105.0); MEAN CORPUSCULAR HEMOGLOBIN 21.8 pg (25.0-35.0); MEAN CORPUSCULAR HGB CONC 31.6 g/dl (31.0-37.0); MEAN PLATELET VOLUME 8.6 fl (7.0-11.0); MONO # 0.1 (0.1-0.6); MONO % 0.9 % (1.0-6.0); RBC 4.4 10^6/uL (3.5-6.1); RED CELL DISTRIBUTION WIDTH 18.5 % (11.5-14.5); WHITE BLOOD COUNT 9.7 10^3/ul (4.5-11.0)
[2017-07-22 23:34] LABS: TROPONIN I 0.02 ng/mL
[2017-07-22 23:37] LABS: INR 1.12 (0.93-1.08); PARTIAL THROMBOPLASTIN TIME 26.1 Seconds (25.1-36.5); PROTHROMBIN TIME 12.8 SECONDS (9.4-12.5)
[2017-07-23 00:03] LABS: ALB/GLOB RATIO 0.9 (1.1-1.8); ALBUMIN 3.4 g/dL (3.0-4.8); CALCIUM 7.7 mg/dL (8.4-10.5)
[2017-07-23] MEDS ORDERED: Potassium Chloride 20 mEq ER Tab PO STA (00:09)
--- NOTE | 2017-07-23 00:17 | ED PDOC ---
Physical Exam Vital Signs Temp Pulse Resp BP Pulse Ox 07/22/17 22:20 100 07/22/17 22:19 101 H 17 115/44 L 92 L 07/22/17 21:15 97.8 F 107 H 20 114/80 94 L Medical Decision Making ED Course and Treatment: 07/22/17 23:00 Case endorsed to me by Dr. Byrd, pending labs, re-evaluation, and disposition. 07/23/17 00:15 Labs reviewed, potassium repleted. Case discussed with Dr. Miranda, who is aware and agrees with plan. Requests Med Surge admission, suspected thrombocytopenia, anemia secondary to chemtherapy, no history of bleeding. - Lab Interpretations Lab Results: 07/22/17 22:45 07/22/17 22:45 Lab Results 07/22/17 22:50: Influenza Typ A,B (EIA) Negative for flu a/b 07/22/17 22:45: Sodium 130 L, Potassium 2.9 L* D, Chloride 85 L, Carbon Dioxide 31, Anion Gap 17, BUN 105 H, Creatinine 4.5 H, Est GFR ( Amer) 12, Est GFR (Non-Af Amer) 10, Random Glucose 167 H, Calcium 7.7 L, Total Bilirubin 0.5, AST 49 H D, ALT 70 H, Alkaline Phosphatase 150 H, Lactate Dehydrogenase 1186 H, Total Creatine Kinase 38, Troponin I 0.02 D, Total Protein 7.0, Albumin 3.4, Globulin 3.7, Albumin/Globulin Ratio 0.9 L 07/22/17 22:45: PT 12.8 H, INR 1.12 H, APTT 26.1 07/22/17 22:45: WBC 9.7 D, RBC 4.40, Hgb 9.6 L D, Hct 30.4 L, MCV 69.1 L D, MCH 21.8 L, MCHC 31.6, RDW 18.5 H, Plt Count 45 L*, MPV 8.6, Gran % 85.1 H, Lymph % (Auto) 13.7 L, [place] % (Auto) 0.9 L, Eos % (Auto) 0.3 L, Baso % (Auto) 0.0, Gran # 8.25 H, Lymph # (Auto) 1.3, [place] # (Auto) 0.1, Eos # (Auto) 0.0, Baso # (Auto) 0.00 I have reviewed the lab results: Yes - RAD Interpretation Radiology Orders: 07/22/17 22:01 CHEST PORTABLE [RAD] Stat - Medication Orders Current Medication Orders: Discontinued Medications Albuterol Sulfate (Albuterol 0.083% Inhal Dot (2.5 Mg/3 Ml) Ud) 2.5 mg IH STAT STA Stop: 07/22/17 22:05 Last Admin: 07/22/17 22:50 Dose: 2.5 mg Methylprednisolone (Solu-Medrol) 125 mg IVP STAT STA Stop: 07/22/17 22:03 Last Admin: 07/22/17 22:50 Dose: 125 mg IVP Administration Document 07/22/17 22:50 HI (Rec: 07/22/17 23:09 HI [id number]) Charges for Administration # of IVP Administrations 1 Potassium Chloride (K-Dur 20 Meq Er Tab) 40 meq PO STAT STA Stop: 07/23/17 00:10 Disposition/Present on Arrival - Present on Arrival Any Indicators Present on Arrival: No History of DVT/PE: No History of Uncontrolled Diabetes: No Urinary Catheter: No History of Decub. Ulcer: No History Surgical Site Infection Following: None - Disposition Have Diagnosis and Disposition been Completed?: Yes Diagnosis: COPD (chronic obstructive pulmonary disease), Acute renal failure, Thrombocytopenia, Anemia Disposition: HOSPITALIZED Disposition Time: 02:00 Condition: FAIR
[2017-07-23 07:16] LABS: URINE BILIRUBIN NEGATIVE (NEGATIVE); URINE BLOOD TRACE-INTACT (NEGATIVE); URINE GLUCOSE (UA) 100 mg/dL (NEGATIVE); URINE LEUKOCYTE ESTERASE NEGATIVE Leu/uL (NEGATIVE); URINE NITRATE NEGATIVE (NEGATIVE); URINE PROTEIN TRACE mg/dL (<30 mg/dL); URINE UROBILINOGEN 0.2 E.U./dL (<1 E.U./dL)
[2017-07-23 07:20] LABS: URINE APPEARANCE CLEAR (CLEAR); URINE COLOR YELLOW (YELLOW)
[2017-07-23] MEDS ORDERED: Sodium Chloride 0.9% 1,000 ML IV SCH ×2 (07:45→23:15)
[2017-07-23] MEDS ORDERED: Potassium Chloride 20 mEq ER Tab PO ONE (07:46)
[2017-07-23 07:52] LABS: URINE EPITHELIAL CELLS 0 - 2 /hpf (0-5); URINE RBC 0 - 2 /hpf (0-2); URINE WBC 0 - 2 /hpf (0-6)
[2017-07-23 08:32] VITALS: O2SAT 95
--- NOTE | 2017-07-23 09:16 | RAD ---
HISTORY: sob COMPARISON: 07/01/2017 FINDINGS: LUNGS: No active pulmonary disease. PLEURA: No significant pleural effusion identified, no pneumothorax apparent. CARDIOVASCULAR: Normal. OSSEOUS STRUCTURES: No significant abnormalities. VISUALIZED UPPER ABDOMEN: Normal. OTHER FINDINGS: Right-sided Port-A-Cath IMPRESSION: No active disease.
[2017-07-23] MEDS ORDERED: DAPTOmycin 500 mg Inj (Cubicin) IV SCH (10:00)
[2017-07-23 10:45] LABS: ALBUMIN 3.3 g/dL (3.0-4.8); URIC ACID 8.9 mg/dL (2.5-6.2)
--- NOTE | 2017-07-23 11:40 | CP.PCM.CON ---
History of Present Illness - History of Present Illness History of Present Illness: 61 year old female with PMH of extensive smoking history, lung CA diagnosed in April 2017, S/P Sepsis due to left lower HCAP, probably post-obstructive pneumonitis in 2016 came in to [facility] complaining of worsening swelling of lower extremities with pain. She has had lower extremity swelling but she feels this is worse and now she has pain there. She denies soaking her legs in water, does not recall insect or bug bites, no animal contacts. She denies weeping from her legs, no fever or chills, has chronic cough which has actually improved since stopping smoking, no sore throat, no nausea or vomiting, no rhinorrhea, no abdominal pain, no diarrhea, on dysuria. Infectious diseases consult is requested to further evaluate and manage. Review of Systems - Review of Systems All systems: reviewed and no additional remarkable complaints except (as per HPI ) Past Patient History - Infectious Disease Hx of Infectious Diseases: None - Past Social History Smoking Status: Former Smoker - CARDIAC Hx Cardiac Disorders: No Hx Pacemaker: No - PULMONARY Hx Respiratory Disorders: Yes Hx Chronic Obstructive Pulmonary Disease (COPD): Yes Hx Emphysema: Yes - NEUROLOGICAL Hx Neurological Disorder: No - HEENT Hx HEENT Problems: No - RENAL Hx Chronic Kidney Disease: Yes Hx Renal Failure: Yes - ENDOCRINE/METABOLIC Hx Endocrine Disorders: No - HEMATOLOGICAL/ONCOLOGICAL Hx Blood Disorders: No Hx Cancer: Yes Hx Chemotherapy: Yes (2-5-18) - INTEGUMENTARY Hx Dermatological Problems: No - MUSCULOSKELETAL/RHEUMATOLOGICAL Hx Musculoskeletal Disorders: No Hx Falls: Yes - GASTROINTESTINAL Hx Gastrointestinal Disorders: No - GENITOURINARY/GYNECOLOGICAL Hx Genitourinary Disorders: No - PSYCHIATRIC Hx Psychophysiologic Disorder: No Hx Emotional Abuse: No Hx Physical Abuse: No - SURGICAL HISTORY Hx Surgeries: Yes Other/Comment: Breast reduction. R chest port - ANESTHESIA Hx Anesthesia: Yes Hx Anesthesia Reactions: No Hx Malignant Hyperthermia: No Meds Allergies/Adverse Reactions: Allergies Allergy/AdvReac Type Severity Reaction Status Date / Time No Known Allergies Allergy Verified 07/22/17 21:15 - Medications Medications: Current Medications Sodium Chloride (Sodium Chloride 0.9%) 1,000 mls @ 75 mls/hr IV .[id number] LUZ MARINA Stop: 07/23/17 21:04 Last Admin: 07/23/17 08:01 Dose: 75 mls/hr Physical Exam - Constitutional Appears: Non-toxic, Chronically Ill - Head Exam Head Exam: NORMAL INSPECTION - ENT Exam ENT Exam: Mucous Membranes Moist - Neck Exam Neck exam: Negative for: Meningismus - Respiratory Exam Respiratory Exam: Decreased Breath Sounds - Cardiovascular Exam Cardiovascular Exam: +S1, +S2 - GI/Abdominal Exam GI & Abdominal Exam: Soft. absent: Tenderness - Extremities Exam Additional comments: bilateral lower extremity swelling with erythema and tenderness, no fluctuance Results - Vital Signs Recent Vital Signs: Last Vital Signs Temp 97.8 F 07/23/17 08:31 Pulse 98 H 07/23/17 08:31 Resp 20 07/23/17 08:31 BP 98/60 L 07/23/17 08:31 Pulse Ox 95 07/23/17 08:31 - Labs Result Diagrams: 07/22/17 22:45 07/23/17 07:47 Labs: Laboratory Results - last 24 hr 07/23/17 06:40 Urine Color Yellow Urine Appearance Clear Urine pH 6.0 Ur Specific [place] 1.015 Urine Protein Trace H Urine Glucose (UA) 100 H Urine Ketones Negative Urine Blood Trace-intact H Urine Nitrate Negative Urine Bilirubin Negative Urine Urobilinogen 0.2 Ur Leukocyte Esterase Negative Urine RBC 0 - 2 Urine WBC 0 - 2 Ur Epithelial Cells 0 - 2 Assessment & Plan - Assessment and Plan (Free Text) Plan: Assessment bilateral lower extremity swelling, consider venous stasis with cellulitis on top of it, R/O DVT acute on chronic renal failure S/P Sepsis due to left lower HCAP, probably post-obstructive pneumonitis in a patient with 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
--- NOTE | 2017-07-23 14:00 | US ---
PROCEDURE: Ultrasound of the Kidneys HISTORY: [facility] COMPARISON: None available. TECHNIQUE: Sonogram of the kidneys. FINDINGS: RIGHT KIDNEY: Measures: 4.7 x 10.7 cm. Increased echogenicity compatible with medical renal disease No stone, solid mass lesion or hydronephrosis visualized. LEFT KIDNEY: Measures: 5.3 x 11.7 cm. Increased echogenicity compatible with medical renal disease. No stone, solid mass lesion or hydronephrosis visualized. OTHER FINDINGS: None. IMPRESSION: No acute abnormality/evidence of calculus disease or obstructive uropathy.
[2017-07-23 15:21] LABS: CREATININE,RANDOM URINE 25 mg/dL; TOTAL PROTEIN,RANDOM URINE 37 mg/L
--- NOTE | 2017-07-23 16:10 | CARD ---
APPROVED REPORT EKG Measurement Heart [id number] <Conclusion> Normal sinus rhythm T wave abnormality, consider anterior ischemia Prolonged QT Abnormal ECG
[2017-07-23] MEDS: [UNRECOGNIZED DRUG - OTHER] PO SCH (17:15)
[2017-07-23] MEDS ORDERED: [UNRECOGNIZED DRUG - OTHER] PO SCH (18:00)
[2017-07-23] MEDS ORDERED: Home Med 1 UNIT PO SCH (18:00)
--- NOTE | 2017-07-23 19:03 | US ---
HISTORY: Leg pain and swelling. Evaluate for DVT PHYSICIAN(S): Dez Laird MD. TECHNIQUE: Duplex sonography and color-flow Doppler with graded compression were used to evaluate the deep venous systems of both lower extremities. The exam is limited by edema. The tibial veins are not well seen. FINDINGS: The visualized deep venous systems of both lower extremities are sonographically normal and compressible. Normal wave forms and augmentation are seen. There is no sonographic evidence for deep venous thrombosis in the visualized segments of both lower extremities. IMPRESSION: No sonographic evidence for deep venous thrombosis in the visualized segments of both lower extremities.
--- NOTE | 2017-07-23 23:03 | CP.PCM.CON ---
History of Present Illness - History of Present Illness History of Present Illness: Ms. Pablo is a young 61 years old female with Stage IV squamus cell cancer. She has mets in adrenal gland, large cavitory lesion in left lower lobe. She received first chemotherapy 2 weeks ago with carboplatin and gemcitabine. Routine chemistry done in office showed elevated creatinine of 4.0. She was advised to go to ER. She has chronic leg edema for which she is on lasix twice a day. She is stating that she felt better after many weeks now and wondering why she has to be in the hospital. Shortness of breath and leg edema have decreased markedly. She has erythema of both legs . Review of Systems - Constitutional Constitutional: As Per HPI - EENT Eyes: absent: As Per HPI, Blind Spots, Blurred Vision, Change in Vision, Decreased Night Vision, Diplopia, Discharge, Dry Eye, Exophthalmos, Floaters, Irritation, Itchy Eyes, Loss of Peripheral Vision, Pain, Photophobia, Requires Corrective Lenses, Sees Flashes, Spots in Vision, Tunnel Vision, Other Visual Disturbances, Loss of Vision, Other Nose/Mouth/Throat: absent: As Per HPI, Epistaxis, Nasal Congestion, Nasal Discharge, Nasal Obstruction, Nasal Trauma, Nose Pain, Post Nasal Drip, Sinus Pain, Sinus Pressure, Bleeding Gums, Change in Voice, Dental Pain, Dry Mouth, Dysphagia, Halitosis, Hoarsness, Lip Swelling, Mouth Lesions, Mouth Pain, Odynophagia, Sore Throat, Throat Swelling, Tongue Swelling, Facial Pain, Neck Pain, Neck Mass, Other - Cardiovascular Cardiovascular: absent: As Per HPI, Acrocyanosis, Chest Pain, Chest Pain at Rest , Chest Pain with Activity, Claudication, Diaphoresis, Dyspnea, Dyspnea on Exertion, Edema, Irregular Heart Rhythm, Pain Radiating to Arm/Neck/Jaw, Leg Edema, Leg Ulcers, Lightheadedness, Orthopnea, Palpitations, Paroxysmal Nocturnal Dyspnea, Pedal Edema, Radiating Pain, Rapid Heart Rate, Slow Heart Rate, Syncope, Other - Respiratory Respiratory: As Per HPI - Gastrointestinal Gastrointestinal: absent: As Per HPI, Abdominal Pain, Belching, Bloating, Change in Bowel Habits, Change in Stool Character, Coffee Ground Emesis, Constipation, Cramping, Diarrhea, Dyspepsia, Dysphagia, Early Satiety, Excessive Flatus, Fecal Incontinence, Heartburn, Hematemesis, Hematochezia, Loose Stools, Melena, Nausea, Odynophagia, Temesmus, Vomiting, Other - Genitourinary Genitourinary: absent: As Per HPI, Change in Urinary Stream, Difficulty Urinating, Dysuria, Flank Pain, Hematuria, Pyuria, Nocturia, Urinary Incontinence, Urinary Frequency, Urinary Hesitance, Urinary Urgency, Voiding Freq/Small Amts, Freq UTI, Hx Renal/Bladder Calculi, Hx /Renal Surgery, Bladder Distension, Other - Musculoskeletal Musculoskeletal: As Per HPI - Integumentary Integumentary: absent: As Per HPI, Acne, Alopecia, Bleeding Lesions, Change in Hair, Change in Nails, Change in Pigmentation, Changing Lesions, Dry Skin, Erythema, Furuncle, Hirsutism, Lesions, New Lesions, Non-Healing Lesions, Photosensitivity, Pruritus, Rash, Skin Pain, Skin Ulcer, Sores, Striae, Swelling , Unusual Bruising, Wounds, Jaundice, Other - Neurological Neurological: absent: As Per HPI, Abnormal Gait, Abnormal Hearing, Abnormal Movements, Abnormal Speech, Behavioral Changes, Burning Sensations, Confusion, Convulsions, Disequilibrium, Dizziness, Numbness, Focal Weakness, Frequent Falls , Headaches, Lack of Coordination, Loss of Vision, Memory Loss, Paresthesias, Radicular Pain, Restless Legs, Sensory Deficit, Syncope, Tingling, Tremor, Vertigo, Weakness, Other Visual Disturbances, Other - Endocrine Endocrine: absent: As Per HPI, Change in Body Appearance, Change in Libido, Cold Intolorance, Deepening of Voice, Excessive Sweating, Fatigue, Flushing, Heat Intolorance, Increase in Ring/Shoe/Hat Size, Palpitations, Polydipsia, Polyphagia, Polyuria, Other - Hematologic/Lymphatic Hematologic: As Per HPI Past Patient History - Infectious Disease Hx of Infectious Diseases: None - Past Social History Smoking Status: Former Smoker - CARDIAC Hx Cardiac Disorders: No Hx Pacemaker: No - PULMONARY Hx Respiratory Disorders: Yes Hx Chronic Obstructive Pulmonary Disease (COPD): Yes Hx Emphysema: Yes - NEUROLOGICAL Hx Neurological Disorder: No - HEENT Hx HEENT Problems: No - RENAL Hx Chronic Kidney Disease: Yes Hx Renal Failure: Yes - ENDOCRINE/METABOLIC Hx Endocrine Disorders: No - HEMATOLOGICAL/ONCOLOGICAL Hx Blood Disorders: No Hx Cancer: Yes Hx Chemotherapy: Yes (2-5-18) - INTEGUMENTARY Hx Dermatological Problems: No - MUSCULOSKELETAL/RHEUMATOLOGICAL Hx Musculoskeletal Disorders: No Hx Falls: Yes - GASTROINTESTINAL Hx Gastrointestinal Disorders: No - GENITOURINARY/GYNECOLOGICAL Hx Genitourinary Disorders: No - PSYCHIATRIC Hx Psychophysiologic Disorder: No Hx Emotional Abuse: No Hx Physical Abuse: No - SURGICAL HISTORY Hx Surgeries: Yes Other/Comment: Breast reduction. R chest port - ANESTHESIA Hx Anesthesia: Yes Hx Anesthesia Reactions: No Hx Malignant Hyperthermia: No Meds Allergies/Adverse Reactions: Allergies Allergy/AdvReac Type Severity Reaction Status Date / Time No Known Allergies Allergy Verified 07/22/17 21:15 - Medications Medications: Current Medications Home Med (Home Med) 1 unit PO TID [facility] Last Admin: 07/23/17 17:15 Dose: 1 unit Daptomycin 320 mg/ Sodium (Chloride) 100 mls @ 200 mls/hr IV QOTHERDAY [facility] Stop: 07/28/17 10:01 Last Admin: 07/23/17 11:09 Dose: 200 mls/hr Physical Exam - Constitutional Appears: Non-toxic - Head Exam Head Exam: ATRAUMATIC, NORMAL INSPECTION, NORMOCEPHALIC - Eye Exam Eye Exam: Normal appearance - ENT Exam ENT Exam: Mucous Membranes Moist - Neck Exam Neck exam: Positive for: Normal Inspection - Respiratory Exam Respiratory Exam: Clear to Auscultation Bilateral, Rhonchi - Cardiovascular Exam Cardiovascular Exam: REGULAR RHYTHM, +S1, +S2 - GI/Abdominal Exam GI & Abdominal Exam: Normal Bowel Sounds, Soft - Extremities Exam Additional comments: B/L leg edema, B/L erythema leg - Back Exam Back exam: NORMAL INSPECTION - Neurological Exam Neurological exam: Alert, CN II-XII Intact, Normal Gait, Oriented x3 - Psychiatric Exam Psychiatric exam: Normal Affect - Skin Skin Exam: Normal Color, Warm Results - Vital Signs Recent Vital Signs: Last Vital Signs Temp 98.2 F 07/23/17 16:00 Pulse 104 H 07/23/17 16:00 Resp 19 07/23/17 16:00 BP 111/70 07/23/17 16:00 Pulse Ox 95 07/23/17 16:00 - Labs Result Diagrams: 07/22/17 22:45 07/23/17 07:47 Labs: Laboratory Results - last 24 hr 07/23/17 07/23/17 07/23/17 06:40 07:47 07:47 Sodium 131 L Potassium 4.0 Chloride 86 L Carbon Dioxide 29 Anion Gap 20 BUN 96 H Creatinine 4.4 H Est GFR ( Amer) 12 Est GFR (Non-Af Amer) 10 Random Glucose 180 H Uric Acid 8.9 H Calcium 8.0 L Phosphorus 6.0 H Magnesium 2.0 Total Bilirubin 0.5 AST 40 H ALT 69 H Alkaline Phosphatase 147 H Total Creatine Kinase 27 L Total Protein 6.8 Albumin 3.3 Globulin 3.5 Albumin/Globulin Ratio 1.0 L Urine Color Yellow Urine Appearance Clear Urine pH 6.0 Ur Specific [place] 1.015 Urine Protein Trace H Urine Glucose (UA) 100 H Urine Ketones Negative Urine Blood Trace-intact H Urine Nitrate Negative Urine Bilirubin Negative Urine Urobilinogen 0.2 Ur Leukocyte Esterase Negative Urine RBC 0 - 2 Urine WBC 0 - 2 Ur Epithelial Cells 0 - 2 Ur Random Creatinine U Random Total Protein 07/23/17 14:30 Sodium Potassium Chloride Carbon Dioxide Anion Gap BUN Creatinine Est GFR ( Amer) Est GFR (Non-Af Amer) Random Glucose Uric Acid Calcium Phosphorus Magnesium Total Bilirubin AST ALT Alkaline Phosphatase Total Creatine Kinase Total Protein Albumin Globulin Albumin/Globulin Ratio Urine Color Urine Appearance Urine pH Ur Specific [place] Urine Protein Urine Glucose (UA) Urine Ketones Urine Blood Urine Nitrate Urine Bilirubin Urine Urobilinogen Ur Leukocyte Esterase Urine RBC Urine WBC Ur Epithelial Cells Ur Random Creatinine 25 U Random Total Protein 37 Assessment & Plan - Assessment and Plan (Free Text) Assessment: 1. Stagr IV lung cancer . Squamous type. s/p first cycle of chemo with carbo/ gemzar started 2 weeks ago. 2. Acute renal insufficiency : creatinine elevated to 4.0. management as per Dr. Miranda. Renal USG showed medicorenal disease. 3. Anemia, thrombocytopenia likely related to chemo. 4. B/L leg cellulitis : on daptomycin. ID following. Thank you Dr. Miranda for allowing us to participate in her care.
--- NOTE | 2017-07-24 05:35 | HP ---
CHIEF COMPLAINT AND HISTORY OF PRESENT ILLNESS: This is a 61-year-old female who is coming into the hospital because of acute kidney injury. The patient was being followed by Dr. Wood who is her oncologist. The patient was admitted to the hospital because of acute kidney injury. She had a creatinine that was 4.5. The patient's baseline creatinine has been 0.7 when she was discharged from the hospital on 07/02/2017. She states that she was having lot of lower extremity swelling. After her discharge from the hospital she was not feeling well and then started to improve. She has been treated for non-small cell cancer of the lung by Dr. Wood. She does have a history of COPD. She had developed post obstructive pneumonitis. The patient also had a biopsy of left adrenal mass that showed non-small cell cancer. She says that she feels well. She has no complaints of any abdominal pain or back pain. No dysuria or frequency, no nocturia. She has been taking NSAIDs because of chronic pain issues. REVIEW OF SYMPTOMS: All other review of symptoms are within normal limits except what was mentioned. PAST MEDICAL HISTORY: 1. Non-small cell cancer of the lung. 2. COPD. 3. Healthcare-associated pneumonia. 4. Post obstructive pneumonitis. 5. Mediastinal adenopathy. 6. Left adrenal mass 2.2 cm. 7. Left pleural effusion. PAST SURGICAL HISTORY: Port placement. ALLERGIES: NO KNOWN DRUG ALLERGIES. HOME MEDICATIONS: Adderall and albuterol. SOCIAL HISTORY: She is a former smoker. She was smoking 1 pack per day for 40 years. She has almost quit; however, she still reluctantly admits to smoking few cigarettes. She lives with her son and she has a brother that lives nearby. FAMILY HISTORY: Patient's father had diabetes. Mother had hypertension. Sister had leukemia. PHYSICAL EXAMINATION: VITAL SIGNS: Temperature is 97.8, pulse of 98, blood pressure 98/60, respirations 20, O2 saturation 95%. Height is 5 feet, weight is 175 pounds, BMI is 34.2. GENERAL: The patient lying in bed, uncomfortable, and in no acute distress. HEENT: Atraumatic and normocephalic. Anicteric sclerae. Moist mucosa. Schubert conjunctivae. No oral lesions. NECK: No JVD, anterior and posterior adenopathy, thyromegaly, or bruits. CARDIOVASCULAR: S1 and S2 regular. No murmur, rubs, or gallop. LUNGS: Clear to auscultation bilaterally. No wheezes, rales, or rhonchi. ABDOMEN: Bowel sounds are positive. Soft, nontender and nondistended. No hepatosplenomegaly. No rebound and no guarding EXTREMITIES: No cyanosis, clubbing, or edema. In the lower extremity, there is erythema bilaterally in the legs. NEUROLOGIC: No facial asymmetry. Tongue is midline. No uvula deviation. Power is 5/5 upper extremity and lower extremity. Sensation intact in upper extremity and lower extremity. PSYCHIATRIC: She is awake, alert and oriented x3. No anxiety or depression. She has normal affect. GENITOURINARY: No CVA tenderness. VASCULAR: 2+ pulses in the carotid pulses and pedal pulses. SKIN: No erythema or nodules SPINE: Shows normal curvature. LABORATORY DATA: She has sodium 130, potassium 2.9, repeat is 4.0; creatinine is 4.5, repeat is 4.4; patient's calcium is 8, albumin is 3.3, phosphorus is 6.0, CK is 38. White count is 9.7, platelets 45, hemoglobin is 9.6. Serology shows influenza is negative. Urine shows nitrites are negative, bilirubin is negative, urine protein to creatinine ratio is 1.5. EKG shows sinus rhythm at 96. QTc is 480. Chest x-ray done shows no active disease. Ultrasound of the lower leg shows no evidence of DVT. Renal ultrasound done shows no acute abnormalities. The kidneys do show increased echogenicity compatible with medical renal disease. ASSESSMENT: 1. Acute kidney injury. 2. Hypokalemia. 3. Thrombocytopenia. 4. Chronic obstructive pulmonary disease. 5. Non-small cell cancer of the lung. 6. Mediastinal adenopathy. 7. 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 8. Proteinuria, 1.5 gm. 9. Cellulitis. PLAN: The patient has some daptomycin for antibiotics. She is going to be followed by Dr. Stuart and Dr. Wood. She has cultures that are pending. We will repeat the patient's blood work. I gave her potassium replacement. She is also given steroids. She was on heart-healthy diet. She will be placed on normal saline to see if her kidney function can improve. The patient's acute kidney injury may be related to NSAID use. She is currently off NSAIDs at this point. I will order serological workup. Alejandro Miranda MD
[2017-07-24 07:17] LABS: HEMOGLOBIN 9.7 g/dL (12.0-16.0); MEAN CELL VOLUME 69.4 fl (80.0-105.0); MEAN CORPUSCULAR HEMOGLOBIN 21.7 pg (25.0-35.0); MEAN CORPUSCULAR HGB CONC 31.3 g/dl (31.0-37.0); RBC 4.47 10^6/uL (3.5-6.1); RED CELL DISTRIBUTION WIDTH 18.5 % (11.5-14.5); WHITE BLOOD COUNT 11.1 10^3/ul (4.5-11.0)
[2017-07-24 07:33] LABS: ALBUMIN 3.2 g/dL (3.0-4.8); CALCIUM 7.9 mg/dL (8.4-10.5); URIC ACID 7.3 mg/dL (2.5-6.2)
[2017-07-24] MEDS ORDERED: Potassium Chloride 20 mEq ER Tab PO ONE ×3 (07:59→12:00)
[2017-07-24 08:13] LABS: PLATELET COUNT 18 10^3/uL (120.0-450.0)
[2017-07-24 08:45] VITALS: BP 102/64; PULSE 116; RESP 18; TEMP 98.8
[2017-07-24] MEDS: [UNRECOGNIZED DRUG - OTHER] PO SCH ×2 (09:11→13:11)
[2017-07-24 12:25] LABS: COMPLEMENT C4 35.7 mg/dL (14.0-44.0)
[2017-07-24] MEDS ORDERED: Albuterol HFA 90 mcg/actuation (8 g) IH PRN (15:01)
[2017-07-24] MEDS ORDERED: NAPROXEN SODIUM PO PRN (15:01)
[2017-07-24] MEDS ORDERED: Pneumococcal 23-Valent Vaccine IM ONE (15:13)
[2017-07-24] MEDS ORDERED: LACTOBACILLUS COMBINATION NO 8 PO SCH (15:15)
[2017-07-24] MEDS ORDERED: DEXTROAMPHETAMINE PO SCH (18:00)
[2017-07-24] MEDS ORDERED: AMPHETAMINE PO SCH (18:00)
--- NOTE | 2017-07-25 12:35 | DS ---
Patient is a 61-year-old female who came into the hospital, was found to have acute kidney injury. The patient was started on IV fluids after the history indicated patient most likely had NSAID-induced acute kidney injury. She has been taking Aleve for many years. She also has been getting chemotherapy. The patient states that she has no complaints of any chest pain or shortness of breath. Her renal ultrasound that was done showed medical kidney disease. Her creatinine is improving. She had replacement of her potassium. She is going to be discharged home to follow up as an outpatient. PHYSICAL EXAMINATION VITAL SIGNS: Temperature is 98.8, pulse of 116, blood pressure 102/64, respirations 18. GENERAL: The patient is lying in bed, flat, comfortable. HEENT: No oral lesion. Anicteric sclerae. Moist mucosa. NECK: No JVD, adenopathy, or thyromegaly. CARDIOVASCULAR: S1 and S2, regular. No murmurs, rubs, or gallops. LUNGS: Clear to auscultation bilaterally. No wheeze, rales, or rhonchi. ABDOMEN: Bowel sounds are positive. Soft, nontender and nondistended. EXTREMITIES: No cyanosis, clubbing or edema. ASSESSMENT 1. Acute kidney injury, improving. 2. Thrombocytopenia. 3. Hypokalemia. 4. Chronic obstructive pulmonary disease. 5. Non-small cell cancer of the lung. 6. Mediastinal adenopathy. 7. 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 8. Proteinuria, 1.5 g. 9. Lower extremity cellulitis, improved. 10. Vitamin D deficiency. PLAN: The patient was given multiple doses of potassium. She is going to follow up in the next few days with Dr. Wood. She will get repeat blood work. I did advise her to have Dr. Wood send me the blood work results. The patient is finishing her normal saline. She had blood cultures that were negative. CONDITION: Stable. ACTIVITIES: Increase as tolerated. Her C3, C4 level has been normal. Alejandro Miranda MD
== END 2017-07-24 16:11 | disposition home or self-care (01) | DRG 683 ==
LOC: ED 21:05 → ERH 07-23 00:13 → 3RNO 07-23 02:36
PROVIDERS: ADMIT Internal Medicine Nephrology; ATTEND Internal Medicine Nephrology
DX: N17.9 Acute kidney failure, unspecified (principal); C34.90 Malignant neoplasm of unspecified part of unspecified bronchus or lung; C79.70 Secondary malignant neoplasm of unspecified adrenal gland; L03.115 Cellulitis of right lower limb; L03.116 Cellulitis of left lower limb; D69.59 Other secondary thrombocytopenia; D64.81 Anemia due to antineoplastic chemotherapy; T45.1X5A Adverse effect of antineoplastic and immunosuppressive drugs, initial encounter; E87.6 Hypokalemia; R59.0 Localized enlarged lymph nodes; E55.9 Vitamin D deficiency, unspecified; F17.210 Nicotine dependence, cigarettes, uncomplicated; T39.395A Adverse effect of other nonsteroidal anti-inflammatory drugs [NSAID], initial encounter

== ENCOUNTER 2017-07-26 21:39 | Inpatient (IN) | payer OTHER ==
[2017-07-26 22:49] VITALS: BMI 34.0
--- NOTE | 2017-07-26 23:49 | ED PDOC ---
Arrival/HPI - General Chief Complaint: Lower Extremity Problem/Injury Time Seen by Provider: 07/26/17 22:57 Historian: Patient - History of Present Illness Narrative History of Present Illness (Text): 61yoF, who has hx of non-small cell carcinoma, thrombocytopenia, who was recently discharged 07/24/17 for acute kidney injury/hypokalemia, both lower legs cellulitis and now stated more redness to both lower legs, coughing with some blood but otherwise no n/v/cope/dizziness/sob/chest pain/abdomen pain/leg swelling which is any worse/loss of limb function/pain with urination. 07/26/17 23:46 Time/Duration: Other (several days) Symptom Course: Worsening Activities at Onset: Rest Context: Sitting Past Medical History - Provider Review Nursing Documentation Reviewed: Yes - Travel History Have you recently traveled outside [place] w/in the past 3 mons?: No - Infectious Disease Hx of Infectious Diseases: None - Reproductive Menopause: No - Past Medical History Past Medical History: No Previous - Cardiac Hx Cardiac Disorders: No - Pulmonary Hx Chronic Obstructive Pulmonary Disease (COPD): Yes - Neurological Hx Neurological Disorder: No - HEENT Hx HEENT Disorder: No - Renal Hx Renal Failure: Yes - Endocrine/Metabolic Hx Endocrine Disorders: No - Hematological/Oncological Hx Blood Disorders: No Hx Cancer: Yes Hx Chemotherapy: Yes (07-21-17) - Integumentary Hx Dermatological Disorder: No - Musculoskeletal/Rheumatological Hx Musculoskeletal Disorders: No Hx Falls: Yes - Gastrointestinal Hx Gastrointestinal Disorders: No - Genitourinary/Gynecological Hx Genitourinary Disorders: No - Psychiatric Hx Psychophysiologic Disorder: No Hx Emotional Abuse: No Hx Physical Abuse: No Hx Substance Use: No - Surgical History Other/Comment: Breast reduction. R chest port - Anesthesia Hx Anesthesia: Yes Hx Anesthesia Reactions: No Hx Malignant Hyperthermia: No - Suicidal Assessment Feels Threatened In Home Enviroment: No Family/Social History - Physician Review Nursing Documentation Reviewed: Yes Family/Social History: No Known Family HX Smoking Status: Former Smoker Hx Alcohol Use: No (ocassional) Hx Substance Use: No Allergies/Home Meds Allergies/Adverse Reactions: Allergies No Known Allergies Allergy (Verified 07/22/17 21:15) Home Medications: Home Meds Medication Instructions Recorded Confirmed Acetaminophen [Extra Strength 500 mg PO Q6 PRN 07/27/17 07/27/17 Non-Aspirin] Dextroamphetamine/Amphetamine 15 mg PO DAILY 07/27/17 07/27/17 [Adderall] Nystatin [Nystatin Oral Susp] 5 ml PO QID PRN 07/27/17 07/27/17 Potassium Chloride [Klor-Con 10] 10 meq PO BID 07/27/17 07/27/17 Review of Systems - Review of Systems Constitutional: Normal Eyes: Normal ENT: Normal Respiratory: Cough Cardiovascular: Normal Gastrointestinal: Normal Genitourinary Female: Normal Musculoskeletal: Normal Skin: Cellulitis Neurological: Normal Endocrine: Normal Hemo/Lymphatic: Normal Psychiatric: Normal Physical Exam Vital Signs Reviewed: Yes Vital Signs Temp Pulse Resp BP Pulse Ox 07/27/17 00:58 111 H 18 119/66 97 07/26/17 22:49 97.7 F 102 H 20 136/84 99 Temperature: Afebrile Blood Pressure: Hypertensive Pulse: Tachycardic Respiratory Rate: Normal Appearance: Positive for: Well-Appearing, Non-Toxic, Comfortable Pain Distress: None Mental Status: Positive for: Alert and Oriented X 3 - Systems Exam Head: Present: Atraumatic, Normocephalic Pupils: Present: PERRL Extroacular Muscles: Present: EOMI Conjunctiva: Present: Normal Ears: Present: Normal Mouth: Present: Moist Mucous Membranes Pharnyx: Present: Normal Nose (External): Present: Atraumatic Nose (Internal): Present: Normal Inspection Neck: Present: Normal Range of Motion Respiratory/Chest: Present: Clear to Auscultation, Good Air Exchange Cardiovascular: Present: Regular Rate and Rhythm Abdomen: No: Tenderness, Distention, Normal Bowel Sounds, Peritoneal Signs, Rebound, Guarding, McBurney's Point Tender, Rovsing's Sign Present, Hernias, Feeding Tubes, Ostomy Tubes, Mass/Organomegaly, Scars, Other Upper Extremity: Present: Normal Inspection Lower Extremity: Present: Other (b/l le with moderate circumferential erythema wo fluctuance/crepitus and no bony tenderness. otherwise warm/sensation/cap refill/pink/dp pulses+) Neurological: Present: GCS=15, CN II-XII Intact, Speech Normal, Motor Func Grossly Intact Skin: Present: Warm, Other (see LE) Psychiatric: Present: Alert, Oriented x 3, Normal Insight, Normal Concentration Medical Decision Making ED Course and Treatment: 61yoF, who has hx of non-small cell carcinoma, thrombocytopenia, who was recently discharged 07/24/17 for acute kidney injury/hypokalemia, both lower legs cellulitis and now stated more redness to both lower legs, coughing with some blood but otherwise no n/v/cope/dizziness/sob/chest pain/abdomen pain/leg swelling which is any worse/loss of limb function/pain with urination. b/l le with moderate circumferential erythema wo fluctuance/crepitus and no bony tenderness. otherwise warm/sensation/cap refill/pink/dp pulses+. temp 97.7, mildly fast heart rate 102, stable breathing 20, hypertensive 136/84, 99% room air oxygen level. 07/26/17 23:51 07/26/17 23:51 07/27/17 00:41 lactic 1.1 07/27/17 00:41 ECG: sinus tachycardia 07/27/17 01:24 wbc 1 plts 1 mg 1.3 - replacement k 3.1 - supplement neutropenia thrombocytopenia cxr mild markings b/l le mild cellulitis with petechia - iv zosyn 07/27/17 02:30 d/w Dr. Bravo [facility] who stated can admit to med-surg and he will decide/ plan transfusion/further care. - Lab Interpretations Lab Results: 07/27/17 00:00 07/27/17 00:00 Lab Results 07/27/17 02:08: Urine Color Yellow, Urine Appearance Sl cloudy, Urine pH 6.0, Ur Specific Alloy 1.020, Urine Protein 100 H, Urine Glucose (UA) Negative, Urine Ketones Negative, Urine Blood Small H, Urine Nitrate Negative, Urine Bilirubin Negative, Urine Urobilinogen 0.2, Ur Leukocyte Esterase Trace H, Urine RBC Pending, Urine WBC Pending 07/27/17 00:00: pO2 41, VBG pH 7.44 H, VBG pCO2 52.0, VBG HCO3 35.3 H, VBG Total CO2 36.9 H, VBG O2 Sat (Calc) 81.4 H, VBG Base Excess 9.4 H, VBG Potassium 3.2 L, Sodium 128.0 L, Chloride 89.0 L, Glucose 139 H, Lactate 1.1, FiO2 21.0, Venous Blood Potassium 3.2 L 07/27/17 00:00: Sodium 131 L, Chloride 84 L, Potassium 3.1 L, Carbon Dioxide 35 H, Anion Gap 15, BUN 67 H, Creatinine 3.0 H, Est GFR ( Amer) 19, Est GFR (Non-Af Amer) 16, Random Glucose 138 H, Calcium 8.9, Magnesium 1.4 L, Total Bilirubin 1.1, AST 20, ALT 38, Alkaline Phosphatase 129 H, Lactate Dehydrogenase 601, Total Creatine Kinase < 20 L, Troponin I 0.01 D, Total Protein 6.9, Albumin 3.4, Globulin 3.5, Albumin/Globulin Ratio 1.0 L 07/27/17 00:00: PT 14.8 H, INR 1.29 H, APTT 27.7 07/27/17 00:00: WBC 1.1 L* D, RBC 4.38, Hgb 9.6 L, Hct 30.7 L, MCV 70.1 L, MCH 21.9 L, MCHC 31.3, RDW 18.3 H, Plt Count 1 L*, Gran % 38.2 L, Lymph % (Auto) 60.0 H, [place] % (Auto) 0.9 L, Eos % (Auto) 0.9 L, Baso % (Auto) 0.0, Gran # 0.42 L, Lymph # (Auto) 0.7 L, [place] # (Auto) 0.0 L, Eos # (Auto) 0.0, Baso # (Auto) 0.00 I have reviewed the lab results: Yes - RAD Interpretation Radiology Orders: 07/26/17 23:44 CHEST PORTABLE [RAD] Stat Senior Budget Analyst: ED Physician (cxr mild vascular markings) - EKG Interpretation Interpreted by ED Physician: Yes (sinus tachycardia) Type: 12 lead EKG - Medication Orders Current Medication Orders: Discontinued Medications Magnesium Sulfate/Dextrose (Magnesium Sulfate 1 Gm/100 Ml D5w) 1 gm in 100 mls @ 100 mls/hr IVPB ONCE ONE Stop: 07/27/17 02:24 Last Admin: 07/27/17 02:29 Dose: 100 mls/hr eMAR Start Stop Document 07/27/17 02:29 CNR (Rec: 07/27/17 02:29 CNR [id number]) Intravenous Solution Start Date 07/27/17 Start Time 02:29 End Date 07/27/17 End time 03:29 Total Infusion Time 60 Piperacillin Sod/Tazobactam Sod (Zosyn 4.5 Gm In Ns 100ml) 4.5 gm in 100 mls @ 200 mls/hr IVPB STAT STA PRN Reason: Protocol Stop: 07/27/17 01:54 Last Admin: 07/27/17 01:59 Dose: 200 mls/hr eMAR Start Stop Document 07/27/17 01:59 CNR (Rec: 07/27/17 01:59 CNR [id number]) Intravenous Solution Start Date 07/27/17 Start Time 01:59 End Date 07/27/17 End time 02:29 Total Infusion Time 30 Potassium Chloride (K-Dur 20 Meq Er Tab) 40 meq PO STAT STA Stop: 07/27/17 01:27 Last Admin: 07/27/17 01:59 Dose: 40 meq Disposition/Present on Arrival - Present on Arrival Any Indicators Present on Arrival: No History of DVT/PE: No History of Uncontrolled Diabetes: No Urinary Catheter: No History of Decub. Ulcer: No History Surgical Site Infection Following: None - Disposition Have Diagnosis and Disposition been Completed?: Yes Diagnosis: Neutropenia, Thrombocytopenia, Hypokalemia, Cellulitis Disposition: HOSPITALIZED Disposition Time: 02:32 Patient Plan: Admission Condition: STABLE Discharge Instructions (ExitCare): Cellulitis (ED) Referrals: Campbell Lino, [Primary Care Provider] - Follow up with primary Forms: [employer] (Bengali)
[2017-07-27 00:19] LABS: VENOUS BLOOD GAS BASE EXCESS 9.4 mmol/L (0.0-2.0); VENOUS BLOOD GAS PO2 41 mm/Hg (30-55); VENOUS BLOOD PH 7.44 (7.32-7.43)
[2017-07-27 00:23] LABS: EOS % 0.9 % (1.5-5.0); GRAN # 0.42 (1.4-6.5); GRAN % 38.2 % (50.0-68.0); HEMOGLOBIN 9.6 g/dL (12.0-16.0); LYMPH # 0.7 (1.2-3.4); MEAN CELL VOLUME 70.1 fl (80.0-105.0); MEAN CORPUSCULAR HEMOGLOBIN 21.9 pg (25.0-35.0); MEAN CORPUSCULAR HGB CONC 31.3 g/dl (31.0-37.0); MONO % 0.9 % (1.0-6.0); RBC 4.38 10^6/uL (3.5-6.1); RED CELL DISTRIBUTION WIDTH 18.3 % (11.5-14.5)
[2017-07-27 00:39] LABS: TROPONIN I 0.01 ng/mL
[2017-07-27 00:41] LABS: ALBUMIN 3.4 g/dL (3.0-4.8); ALT/SGPT 38 U/L (7-56); AST/SGOT 20 U/L (14-36); BLOOD UREA NITROGEN 67 mg/dL (7-21); CALCIUM 8.9 mg/dL (8.4-10.5); GFR AFRICAN-AMERICAN 19; GFR NON-AFRICAN AMERICAN 16; MAGNESIUM 1.4 mg/dL (1.7-2.2)
[2017-07-27 00:42] LABS: PLATELET COUNT 1 10^3/uL (120.0-450.0); WHITE BLOOD COUNT 1.1 10^3/ul (4.5-11.0)
[2017-07-27 00:44] LABS: INR 1.29 (0.93-1.08); PARTIAL THROMBOPLASTIN TIME 27.7 Seconds (25.1-36.5); PROTHROMBIN TIME 14.8 SECONDS (9.4-12.5)
[2017-07-27] MEDS ORDERED: Magnesium Sulfate 1 gm in D5W 1 GM/100 ML BAG IVPB ONE (01:25)
[2017-07-27] MEDS ORDERED: Piperacill/Tazo 4.5gm in NS 4.5 GM/100 ML BAG IVPB STA (01:25)
[2017-07-27] MEDS ORDERED: Potassium Chloride 20 mEq ER Tab PO STA (01:26)
[2017-07-27 02:19] LABS: URINE BILIRUBIN NEGATIVE (NEGATIVE); URINE BLOOD SMALL (NEGATIVE); URINE GLUCOSE (UA) NEGATIVE (NEGATIVE); URINE LEUKOCYTE ESTERASE TRACE Leu/uL (NEGATIVE); URINE NITRATE NEGATIVE (NEGATIVE); URINE PROTEIN 100 mg/dL (<30 mg/dL); URINE UROBILINOGEN 0.2 E.U./dL (<1 E.U./dL)
[2017-07-27 02:22] LABS: URINE APPEARANCE SL CLOUDY (CLEAR); URINE COLOR YELLOW (YELLOW)
[2017-07-27 02:43] LABS: URINE BACTERIA MOD (NEG)
[2017-07-27] MEDS ORDERED: Sodium Chloride 0.9% 1,000 ML IV SCH (02:45)
[2017-07-27] MEDS ORDERED: Potassium Chloride 20 mEq ER Tab PO ONE (09:00)
--- NOTE | 2017-07-27 10:33 | RAD ---
HISTORY: Cough. COMPARISON: 07/22/2017 FINDINGS: LUNGS: Persistent left lower lobe infiltrate/consolidative change improved compared to the prior study. PLEURA: No significant pleural effusion identified, no pneumothorax apparent. CARDIOVASCULAR: No radiographic findings to suggest acute or significant cardiovascular disease. Venous access catheter in stable, satisfactory position. OSSEOUS STRUCTURES: No significant abnormalities. VISUALIZED UPPER ABDOMEN: Normal. OTHER FINDINGS: None. IMPRESSION: Improving left lower lobe infiltrate.
[2017-07-27] MEDS ORDERED: Piperacill/Tazo 4.5gm in NS 4.5 GM/100 ML BAG IVPB ONE (20:00)
--- NOTE | 2017-07-27 20:51 | HP ---
HISTORY OF PRESENT ILLNESS: This is a 61-year-old female, who has come into the hospital with a past medical history of non-small cell carcinoma, thrombocytopenia, acute kidney injury that is resolving. The patient states that she woke up yesterday and noticed that her legs were swollen, they were red. She felt there was some blood in the leg area. She was complaining of some discomfort. She was concerned about leg infection, so she came in for further evaluation. The patient has no complaints of any chest pain or shortness of breath. No headache. No nausea, no vomiting, no dysuria, no frequency, no weakness in the arms or the legs, no gingival bleeding, no other sites of ecchymosis. She was recently discharged from the hospital because of acute kidney injury secondary to NSAID use. Her creatinine is improving. REVIEW OF SYSTEMS: All other review of symptoms are within normal limits. ALLERGIES: NO KNOWN DRUG ALLERGIES. HOME MEDICATIONS: Adderall and albuterol. PAST MEDICAL HISTORY: 1. Non-small cell cancer of the lung. 2. COPD. 3. Healthcare-associated pneumonia. 4. Post obstructive pneumonitis. 5. Mediastinal adenopathy. 6. Left adrenal mass 2.2 cm. 7. Left pleural effusion. 8. Acute kidney injury. 9. Proteinuria, 1.5 g per day. 10. Cellulitis. PAST SURGICAL HISTORY: Port placement. FAMILY HISTORY: Noncontributory. The patient's father had diabetes. mother had hypertension, sister had leukemia. PHYSICAL EXAMINATION: VITAL SIGNS: Temperature is 100, blood pressure is 101/63, respirations 20, O2 saturation 96%. Height is 5 feet, weight is 174 pounds, BMI is 34. GENERAL: The patient lying in bed, uncomfortable, and in no acute distress. HEENT: Atraumatic and normocephalic. Anicteric sclerae. Moist mucosa. Beulah conjunctivae. No oral lesions. NECK: No JVD, anterior and posterior adenopathy, thyromegaly, or bruits. CARDIOVASCULAR: S1 and S2 regular. No murmur, rubs, or gallop. LUNGS: Clear to auscultation bilaterally. No wheezes, rales, or rhonchi. ABDOMEN: Bowel sounds are positive. Soft, nontender and nondistended. No hepatosplenomegaly. No rebound and no guarding EXTREMITIES: Lower extremity area, there is ecchymosis in the legs bilaterally with 1+ edema. NEUROLOGIC: No facial asymmetry. Tongue is midline. No uvula deviation. Power is 5/5 upper extremity and lower extremity. Sensation intact in upper extremity and lower extremity. PSYCHIATRIC: She is awake, alert and oriented x3. No anxiety or depression. She has normal affect. GENITOURINARY: No CVA tenderness. VASCULAR: 2+ pulses in the carotid pulses and pedal pulses. SKIN: No erythema or nodules SPINE: Shows normal curvature. LABORATORY DATA: She has a white count of 1.1, hemoglobin is 9.6, platelet count is 1. INR is 1.29. VBG shows a pH of 7.4 with a PCO2 of 52, PIO2 of 41. Chemistry shows the sodium 131, potassium 3.1, creatinine is 3.0. Urine shows blood small, nitrites are negative. The chest x-ray done that shows a small left pleural effusion, no other infiltrates. EKG, heart rate of 107, sinus tachycardia, QTc is 456. ASSESSMENT: 1. Thrombocytopenia, severe. 2. Ecchymosis. 3. Leukopenia. 4. Acute kidney injury secondary to nonsteroidal anti-inflammatory drugs and nephropathy, improving. 5. Hypokalemia. 6. Chronic obstructive pulmonary disease, stable. 7. Mediastinal adenopathy. 8. 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 9. Proteinuria, 1.5 g. PLAN: The patient is currently comfortable. She is going to need transfusion. The lower extremity redness is secondary to patient's thrombocytopenia and bleeding with ecchymosis. The patient's potassium will be replaced. She is going to need Dr. Subramanian on consultation. The patient is going to be discontinued on her antibiotics. She is on a heart healthy diet. We will repeat her labs tomorrow. I did speak to Dr. Subramanian about the case and informed him about the low platelets. Alejandro Miranda MD
--- NOTE | 2017-07-27 21:35 | CARD ---
APPROVED REPORT EKG Measurement Heart [id number] <Conclusion> Sinus tachycardia Possible Left atrial enlargement Borderline ECG
[2017-07-27 21:56] LABS: GRAN # 0.09 (1.4-6.5); GRAN % 19.5 % (50.0-68.0); HEMOGLOBIN 8.7 g/dL (12.0-16.0); LYMPH # 0.4 (1.2-3.4); LYMPH % 78.3 % (22.0-35.0); MEAN CELL VOLUME 69.7 fl (80.0-105.0); MEAN CORPUSCULAR HEMOGLOBIN 21.8 pg (25.0-35.0); MEAN CORPUSCULAR HGB CONC 31.3 g/dl (31.0-37.0); MEAN PLATELET VOLUME 8.9 fl (7.0-11.0); MONO % 2.2 % (1.0-6.0); PLATELET COUNT 61 10^3/uL (120.0-450.0); RBC 3.99 10^6/uL (3.5-6.1)
[2017-07-27 22:00] LABS: WHITE BLOOD COUNT 0.5 10^3/ul (4.5-11.0)
[2017-07-27] MEDS: Meropenem 500 MG in Sodium Chloride 0.9% 100 ML IVPB SCH (22:58)
[2017-07-28 00:57] LABS: EOSINOPHIL 1 % (0.0-3.0); LYMPHOCYTE 17 % (22.0-35.0); MONOCYTE 4 % (1.0-6.0); NEUTROPHIL 78 % (50.0-70.0)
[2017-07-28 00:58] LABS: HYPOCHROMIA 2+; PLATELET ESTIMATE LOW (NORMAL); ROULEAU 2+; TARGET CELLS 2+; TOXIC GRANULATION 2+
[2017-07-28 06:20] LABS: MEAN CELL VOLUME 70.6 fl (80.0-105.0); MEAN CORPUSCULAR HEMOGLOBIN 21.8 pg (25.0-35.0); MEAN CORPUSCULAR HGB CONC 30.9 g/dl (31.0-37.0); MEAN PLATELET VOLUME 8.8 fl (7.0-11.0); RBC 3.67 10^6/uL (3.5-6.1); RED CELL DISTRIBUTION WIDTH 18.2 % (11.5-14.5)
[2017-07-28 06:24] LABS: WHITE BLOOD COUNT 0.3 10^3/ul (4.5-11.0)
[2017-07-28 06:57] LABS: CALCIUM 8.3 mg/dL (8.4-10.5); MAGNESIUM 1.5 mg/dL (1.7-2.2)
[2017-07-28] MEDS ORDERED: Potassium Chloride 20 mEq ER Tab PO ONE ×2 (08:07→14:00)
--- NOTE | 2017-07-28 08:27 | PN ---
DATE: 07/28/2017 SUBJECTIVE: The patient has no complaints of any chest pain. No shortness of breath. No headaches. PHYSICAL EXAMINATION: VITAL SIGNS: Temperature is 100.1, pulse of 105, blood pressure is 100/56, respirations 20. GENERAL: The patient is lying in bed, flat, comfortable. HEENT: No oral lesion. Anicteric sclerae. Moist mucosa. NECK: No JVD, adenopathy, or thyromegaly. CARDIOVASCULAR: S1 and S2, regular. No murmurs, rubs, or gallops. LUNGS: Clear to auscultation bilaterally. No wheeze, rales, or rhonchi. ABDOMEN: Bowel sounds are positive, soft, nontender and nondistended. EXTREMITIES: No cyanosis, clubbing or edema. Right lower extremity with bilateral ecchymosis and redness in the lower leg. LABORATORY DATA: White count is 0.3, hemoglobin is 8, platelet count is 43. ASSESSMENT: 1. Thrombocytopenia, severe. 2. Leukopenia. 3. Acute kidney injury secondary to nonsteroidal antiinflammatory drug nephropathy. 4. Hypokalemia. 5. Chronic obstructive pulmonary disease, stable. 6. Mediastinal adenopathy. 7. Left adrenal mass 2.2 cm. 8. Proteinuria, 1.5 g today. PLAN: The patient is on doxycycline for antibiotics. The patient was given Granix for the low white count. The patient is on meropenem for antibiotics. She is on IV fluids with normal saline. She is on Tylenol as needed. I will decrease her IV fluids to 50 an hour. She has labs that are ordered and are pending. She is being followed by Dr. Wood from Hematology. Alejandro Miranda MD
[2017-07-28] MEDS ORDERED: Vancomycin 1.5 GM in Sodium Chloride 0.9% 500 ML IVPB ONE (08:55)
[2017-07-28] MEDS ORDERED: Magnesium Sulfate 2 GM in Sodium Chloride 0.9% 100 ML IV ONE (08:59)
[2017-07-28] MEDS: Nystatin 100,000 Units/ml Oral Susp 5 ml UD PO SCH ×4 (10:13→22:36)
[2017-07-28] MEDS: Magnesium Oxide 400 mg Tab UD PO SCH ×2 (10:13→17:13)
[2017-07-28] MEDS: Sodium Chloride 0.9% 1,000 ML IV SCH (10:14)
[2017-07-28] MEDS: Vancomycin 25 MG/ML PO SCH ×4 (10:15→22:36)
--- NOTE | 2017-07-28 16:53 | CP.PCM.CON ---
History of Present Illness - History of Present Illness History of Present Illness: 61 year old female with PMH of extensive smoking history, lung CA diagnosed in April 2017, S/P Sepsis due to left lower HCAP, probably post-obstructive pneumonitis in 2016 was recently admitted last week in [facility] for lower extremity swelling and was being treated for cellulitis. She is now back in [facility] because of increasing generalized weakness, coughing up blood and continued swelling of the legs. She deneis having fevers, feels tired and weak, no sore throat, no rhinorrhea, no headache, some lightheadedness, no nausea or vomiting , no abdominal pain , no diarrhea, no dysuria. In the ED, the patient was noted to be neutropenic and the patient has low grade fever. CXR continues to show the persistent left lower lobe infiltrate. Infectious Diseases consult is requested to further evaluate and manage. Review of Systems - Review of Systems All systems: reviewed and no additional remarkable complaints except (as per HPI ) Past Patient History - Infectious Disease Hx of Infectious Diseases: None - Past Social History Smoking Status: Former Smoker - CARDIAC Hx Cardiac Disorders: No - PULMONARY Hx Chronic Obstructive Pulmonary Disease (COPD): Yes - NEUROLOGICAL Hx Neurological Disorder: No - HEENT Hx HEENT Problems: No - RENAL Hx Renal Failure: Yes - ENDOCRINE/METABOLIC Hx Endocrine Disorders: No - HEMATOLOGICAL/ONCOLOGICAL Hx Blood Disorders: No Hx Cancer: Yes Hx Chemotherapy: Yes (last dose 07-21-17) - INTEGUMENTARY Hx Dermatological Problems: No - MUSCULOSKELETAL/RHEUMATOLOGICAL Hx Musculoskeletal Disorders: No Hx Falls: Yes - GASTROINTESTINAL Hx Gastrointestinal Disorders: No - GENITOURINARY/GYNECOLOGICAL Hx Genitourinary Disorders: No - PSYCHIATRIC Hx Psychophysiologic Disorder: No Hx Emotional Abuse: No Hx Physical Abuse: No - SURGICAL HISTORY Other/Comment: Breast reduction. R chest port - ANESTHESIA Hx Anesthesia: Yes Hx Anesthesia Reactions: No Hx Malignant Hyperthermia: No Meds Allergies/Adverse Reactions: Allergies Allergy/AdvReac Type Severity Reaction Status Date / Time No Known Allergies Allergy Verified 07/22/17 21:15 - Medications Medications: Current Medications Acetaminophen (Tylenol 325mg Tab) 650 mg PO Q6H PRN PRN Reason: Pain, moderate (4-7) Last Admin: 07/27/17 22:20 Dose: 650 mg Doxycycline Hyclate (Doryx) 100 mg PO Q12 [facility] PRN Reason: Protocol Stop: 08/06/17 10:01 Sodium Chloride (Sodium Chloride 0.9%) 1,000 mls @ 100 mls/hr IV .Q10H [facility] Last Admin: 07/27/17 02:45 Dose: 100 mls/hr Meropenem 500 mg/ Sodium (Chloride) 100 mls @ 100 mls/hr IVPB Q24H [facility] PRN Reason: Protocol Stop: 08/05/17 22:31 Last Admin: 07/27/17 22:58 Dose: Not Given Physical Exam - Constitutional Appears: Other (weak and fatigued) - Head Exam Head Exam: NORMAL INSPECTION - ENT Exam ENT Exam: Mucous Membranes Moist - Neck Exam Neck exam: Negative for: Meningismus - Respiratory Exam Respiratory Exam: Decreased Breath Sounds - Cardiovascular Exam Cardiovascular Exam: +S1, +S2 - GI/Abdominal Exam GI & Abdominal Exam: Soft. absent: Tenderness Results - Vital Signs Recent Vital Signs: Last Vital Signs Temp 100.1 F H 07/27/17 22:20 Pulse 105 H 07/27/17 20:31 Resp 20 07/27/17 20:31 BP 100/56 L 07/27/17 20:31 Pulse Ox 96 07/27/17 16:00 - Labs Result Diagrams: 07/28/17 06:00 07/28/17 06:00 Labs: Laboratory Results - last 24 hr 07/27/17 07/27/17 09:45 21:35 WBC 0.5 L* D RBC 3.99 Hgb 8.7 L Hct 27.8 L MCV 69.7 L MCH 21.8 L MCHC 31.3 RDW 18.0 H Plt Count 61 L MPV 8.9 Gran % 19.5 L Lymph % (Auto) 78.3 H [place] % (Auto) 2.2 Eos % (Auto) 0.0 L Baso % (Auto) 0.0 Gran # 0.09 L Lymph # (Auto) 0.4 L [place] # (Auto) 0.0 L Eos # (Auto) 0.0 Baso # (Auto) 0.00 Neutrophils % (Manual) 78 H Lymphocytes % (Manual) 17 L Monocytes % (Manual) 4 Eosinophils % (Manual) 1 Toxic Granulation 2+ Platelet Evaluation Low Hypochromasia 2+ Target Cells 2+ Rouleaux 2+ Blood Type O POSITIVE Antibody Screen Negative BBK History Checked Patient has bt Assessment & Plan - Assessment and Plan (Free Text) Plan: Assessment fever and neutropenia, source of sepsis to be determined, R/O HCAP bilateral lower extremity swelling, consider venous stasis acute on chronic renal failure S/P Sepsis due to left lower HCAP, probably post-obstructive pneumonitis in a patient with 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
[2017-07-28] MEDS: Meropenem 500 MG in Sodium Chloride 0.9% 100 ML IVPB SCH (22:35)
--- NOTE | 2017-07-28 22:59 | CP.PCM.CON ---
History of Present Illness - History of Present Illness History of Present Illness: Pt.with stage IV lung cancer admitted last night with lower extremity swelling and redness. She is post first cycle of chemo with Gemzar/carboplatin. CBC showed pancytopenia. Cultures negative. s/p 2 units of platelets. Small amount of hemoptysis. Review of Systems - Constitutional Constitutional: As Per HPI, Fatigue, Malaise, Weakness - EENT Eyes: absent: As Per HPI, Blind Spots, Blurred Vision, Change in Vision, Decreased Night Vision, Diplopia, Discharge, Dry Eye, Exophthalmos, Floaters, Irritation, Itchy Eyes, Loss of Peripheral Vision, Pain, Photophobia, Requires Corrective Lenses, Sees Flashes, Spots in Vision, Tunnel Vision, Other Visual Disturbances, Loss of Vision, Other Ears: absent: As Per HPI, Decreased Hearing, Ear Discharge, Ear Pain, Tinnitus, Abnormal Hearing, Disequilibrium, Dizziness, Other Nose/Mouth/Throat: Nasal Congestion - Breasts Breasts: absent: As Per HPI, Change in Shape, Mass, Pain, Nipple Discharge, Nipple Inversion, Skin Changes, Swelling, Other - Cardiovascular Cardiovascular: absent: As Per HPI, Acrocyanosis, Chest Pain, Chest Pain at Rest , Chest Pain with Activity, Claudication, Diaphoresis, Dyspnea, Dyspnea on Exertion, Edema, Irregular Heart Rhythm, Pain Radiating to Arm/Neck/Jaw, Leg Edema, Leg Ulcers, Lightheadedness, Orthopnea, Palpitations, Paroxysmal Nocturnal Dyspnea, Pedal Edema, Radiating Pain, Rapid Heart Rate, Slow Heart Rate, Syncope, Other - Respiratory Respiratory: As Per HPI - Gastrointestinal Gastrointestinal: absent: As Per HPI, Abdominal Pain, Belching, Bloating, Change in Bowel Habits, Change in Stool Character, Coffee Ground Emesis, Constipation, Cramping, Diarrhea, Dyspepsia, Dysphagia, Early Satiety, Excessive Flatus, Fecal Incontinence, Heartburn, Hematemesis, Hematochezia, Loose Stools, Melena, Nausea, Odynophagia, Temesmus, Vomiting, Other - Genitourinary Genitourinary: absent: As Per HPI, Change in Urinary Stream, Difficulty Urinating, Dysuria, Flank Pain, Hematuria, Pyuria, Nocturia, Urinary Incontinence, Urinary Frequency, Urinary Hesitance, Urinary Urgency, Voiding Freq/Small Amts, Freq UTI, Hx Renal/Bladder Calculi, Hx /Renal Surgery, Bladder Distension, Other - Musculoskeletal Musculoskeletal: As Per HPI - Integumentary Integumentary: As Per HPI - Neurological Neurological: absent: As Per HPI, Abnormal Gait, Abnormal Hearing, Abnormal Movements, Abnormal Speech, Behavioral Changes, Burning Sensations, Confusion, Convulsions, Disequilibrium, Dizziness, Numbness, Focal Weakness, Frequent Falls , Headaches, Lack of Coordination, Loss of Vision, Memory Loss, Paresthesias, Radicular Pain, Restless Legs, Sensory Deficit, Syncope, Tingling, Tremor, Vertigo, Weakness, Other Visual Disturbances, Other - Psychiatric Psychiatric: absent: As Per HPI, Abnormal Sleep Pattern, Anhedonia, Anxiety, Auditory Hallucinations, Behavioral Changes, Change in Appetite, Change in Libido, Confusion, Depression, Difficulty Concentrating, Hallucinations, Homicidal Ideation, Hopelessness, Irritability, Memory Loss, Mood Swings, Panic Attacks, Paranoia, Suicidal Ideation, Visual Hallucinations, Tactile Hallucinations, Other - Endocrine Endocrine: absent: As Per HPI, Change in Body Appearance, Change in Libido, Cold Intolorance, Deepening of Voice, Excessive Sweating, Fatigue, Flushing, Heat Intolorance, Increase in Ring/Shoe/Hat Size, Palpitations, Polydipsia, Polyphagia, Polyuria, Other - Hematologic/Lymphatic Hematologic: As Per HPI Past Patient History - Infectious Disease Hx of Infectious Diseases: None - Past Social History Smoking Status: Former Smoker - CARDIAC Hx Cardiac Disorders: No - PULMONARY Hx Chronic Obstructive Pulmonary Disease (COPD): Yes - NEUROLOGICAL Hx Neurological Disorder: No - HEENT Hx HEENT Problems: No - RENAL Hx Renal Failure: Yes - ENDOCRINE/METABOLIC Hx Endocrine Disorders: No - HEMATOLOGICAL/ONCOLOGICAL Hx Blood Disorders: No Hx Cancer: Yes Hx Chemotherapy: Yes (last dose 18) - INTEGUMENTARY Hx Dermatological Problems: No - MUSCULOSKELETAL/RHEUMATOLOGICAL Hx Musculoskeletal Disorders: No Hx Falls: Yes - GASTROINTESTINAL Hx Gastrointestinal Disorders: No - GENITOURINARY/GYNECOLOGICAL Hx Genitourinary Disorders: No - PSYCHIATRIC Hx Psychophysiologic Disorder: No Hx Emotional Abuse: No Hx Physical Abuse: No - SURGICAL HISTORY Other/Comment: Breast reduction. R chest port - ANESTHESIA Hx Anesthesia: Yes Hx Anesthesia Reactions: No Hx Malignant Hyperthermia: No Meds Allergies/Adverse Reactions: Allergies Allergy/AdvReac Type Severity Reaction Status Date / Time No Known Allergies Allergy Verified 02/06/18 21:15 - Medications Medications: Current Medications Acetaminophen (Tylenol 325mg Tab) 650 mg PO Q6H PRN PRN Reason: Pain, moderate (4-7) Last Admin: 07/28/17 17:12 Dose: 650 mg Doxycycline Hyclate (Doryx) 100 mg PO Q12 [facility] PRN Reason: Protocol Stop: 08/06/17 10:01 Last Admin: 07/28/17 22:36 Dose: 100 mg Fluconazole (Diflucan) 100 mg PO DAILY [facility] PRN Reason: Protocol Last Admin: 07/28/17 10:13 Dose: 100 mg Meropenem 500 mg/ Sodium (Chloride) 100 mls @ 100 mls/hr IVPB Q24H [facility] PRN Reason: Protocol Stop: 08/05/17 22:31 Last Admin: 07/28/17 22:35 Dose: 100 mls/hr Sodium Chloride (Sodium Chloride 0.9%) 1,000 mls @ 50 mls/hr IV .Q20H [facility] Last Admin: 07/28/17 10:14 Dose: 50 mls/hr Loperamide HCl (Imodium) 2 mg PO QID PRN PRN Reason: Diarrhea Last Admin: 07/28/17 10:12 Dose: 2 mg Magnesium Oxide (Mag-Ox) 400 mg PO BID [facility] Last Admin: 07/28/17 17:13 Dose: 400 mg Nystatin (Nystatin Oral Susp) 5 ml PO Q4H [facility] Last Admin: 07/28/17 22:36 Dose: 5 ml Sodium Chloride ([place] Nasal [place]) 0 ml NS TID [facility] Last Admin: 07/28/17 17:12 Dose: 3 spray Vancomycin HCl (Vancocin 25 Mg/Ml (Oral Use)) 250 mg PO QID [facility] PRN Reason: Protocol Last Admin: 07/28/17 22:36 Dose: 250 mg Physical Exam - Constitutional Appears: Chronically Ill - Head Exam Head Exam: ATRAUMATIC, NORMAL INSPECTION - Eye Exam Eye Exam: Normal appearance - ENT Exam ENT Exam: Mucous Membranes Moist Additional comments: oral thrush present. - Neck Exam Neck exam: Positive for: Normal Inspection - Respiratory Exam Respiratory Exam: Clear to Auscultation Bilateral, NORMAL BREATHING PATTERN - Cardiovascular Exam Cardiovascular Exam: REGULAR RHYTHM, +S1, +S2 - GI/Abdominal Exam GI & Abdominal Exam: Normal Bowel Sounds - Extremities Exam Extremities exam: Positive for: pedal edema - Back Exam Back exam: NORMAL INSPECTION - Neurological Exam Neurological exam: Alert, Normal Gait, Oriented x3 - Skin Skin Exam: Normal Color, Petechiae, Warm Results - Vital Signs Recent Vital Signs: Last Vital Signs Temp 99.5 F 07/28/17 18:58 Pulse 111 H 07/28/17 16:07 Resp 20 07/28/17 16:07 BP 106/71 07/28/17 16:07 Pulse Ox 98 07/28/17 16:00 - Labs Result Diagrams: 07/28/17 06:00 07/28/17 06:00 Labs: Laboratory Results - last 24 hr 07/27/17 07/27/17 07/28/17 09:45 21:35 06:00 WBC 0.3 L* D RBC 3.67 Hgb 8.0 L Hct 25.9 L MCV 70.6 L MCH 21.8 L MCHC 30.9 L RDW 18.2 H Plt Count 43 L* MPV 8.8 Neutrophils % (Manual) 78 H Lymphocytes % (Manual) 17 L Monocytes % (Manual) 4 Eosinophils % (Manual) 1 Toxic Granulation 2+ Platelet Evaluation Low Hypochromasia 2+ Target Cells 2+ Rouleaux 2+ Sodium Potassium Chloride Carbon Dioxide Anion Gap BUN Creatinine Est GFR ( Amer) Est GFR (Non-Af Amer) Random Glucose Calcium Phosphorus Magnesium Total Bilirubin AST ALT Alkaline Phosphatase Total Protein Albumin Globulin Albumin/Globulin Ratio Blood Type O POSITIVE Antibody Screen Negative Crossmatch See Detail BBK History Checked Patient has bt 07/28/17 06:00 WBC RBC Hgb Hct MCV MCH MCHC RDW Plt Count MPV Neutrophils % (Manual) Lymphocytes % (Manual) Monocytes % (Manual) Eosinophils % (Manual) Toxic Granulation Platelet Evaluation Hypochromasia Target Cells Rouleaux Sodium 133 Potassium 2.7 L* Chloride 92 L Carbon Dioxide 29 Anion Gap 14 BUN 51 H Creatinine 2.6 H Est GFR ( Amer) 23 Est GFR (Non-Af Amer) 19 Random Glucose 112 H Calcium 8.3 L Phosphorus 4.0 Magnesium 1.5 L Total Bilirubin 0.8 AST 20 ALT 31 Alkaline Phosphatase 102 Total Protein 6.2 Albumin 3.0 Globulin 3.2 Albumin/Globulin Ratio 1.0 L Blood Type Antibody Screen Crossmatch BBK History Checked Assessment & Plan - Assessment and Plan (Free Text) Assessment: 1. Stage IV lung Cancer : s/p first cycle of chemo. 2. Chemo induced pancytopenia; s/p 2 units of platelets. 2 units of PRBC today. Neupogen 480 SQ daily. CBC am. 3. Oral Thrush : diflucan 100 mg daily. Nystatin mouth wash QID. 4. Renal : BUN, creatinine improving. 5. ID : on PO doxy and meropenem. loose stools- c-diff stool PO vanco 250 QID. 6. B/L leg cellulitis : on antibiotics. 7. Pulmonary : stable. left lower lobe SQ. cancer. - Date & Time Date: 07/28/17 Time: 09:00
[2017-07-29] MEDS: Levalbuterol 0.63 MG/3 ML Inhal Soln UD IH ONE ×2 (01:18→02:01)
[2017-07-29] MEDS ORDERED: guaiFENesin DM 200 mg-20 mg/10 ml UD PO ONE (02:48)
[2017-07-29] MEDS: Sodium Chloride 0.9% 1,000 ML IV SCH (02:59)
[2017-07-29 05:48] LABS: HEMOGLOBIN 9.5 g/dL (12.0-16.0); MEAN CELL VOLUME 73.8 fl (80.0-105.0); MEAN CORPUSCULAR HEMOGLOBIN 23.3 pg (25.0-35.0); MEAN CORPUSCULAR HGB CONC 31.6 g/dl (31.0-37.0); MEAN PLATELET VOLUME 8.9 fl (7.0-11.0); RBC 4.08 10^6/uL (3.5-6.1); RED CELL DISTRIBUTION WIDTH 19.1 % (11.5-14.5)
[2017-07-29 05:54] LABS: PLATELET COUNT 22 10^3/uL (120.0-450.0); WHITE BLOOD COUNT 0.3 10^3/ul (4.5-11.0)
[2017-07-29 07:16] LABS: ALBUMIN 3.1 g/dL (3.0-4.8); CALCIUM 8.7 mg/dL (8.4-10.5)
[2017-07-29] MEDS ORDERED: Potassium Chloride 40 MEQ in Sodium Chloride 0.45% 1,000 ML IV SCH (08:45)
[2017-07-29] MEDS: Magnesium Oxide 400 mg Tab UD PO SCH ×2 (10:14→17:22)
[2017-07-29] MEDS: Nystatin 100,000 Units/ml Oral Susp 5 ml UD PO SCH ×5 (10:16→21:28)
[2017-07-29] MEDS: Vancomycin 25 MG/ML PO SCH ×4 (10:17→21:27)
[2017-07-29] MEDS ORDERED: Potassium Chloride 20 mEq ER Tab PO ONE ×2 (13:00→22:00)
[2017-07-29] MEDS: Meropenem 500 MG in Sodium Chloride 0.9% 100 ML IVPB SCH (21:30)
--- NOTE | 2017-07-30 05:19 | PN ---
DATE: SUBJECTIVE: The patient is seen in bed, in no acute distress, nontoxic. PHYSICAL EXAMINATION: VITAL SIGNS: On exam, temperature is 97, blood pressure is 119/70, respiratory rate 18. HEENT: Unremarkable. NECK: Supple. LUNGS: Have decreased breath sounds. HEART: Normal S1 and S2. ABDOMEN: Soft, nontender. LABORATORY DATA: Reveals a white count of , hemoglobin of 9, platelets of 22,000. BUN of 32, creatinine of 2.2. Procalcitonin is 0.2. Urinalysis is noted. Microbiology reveals the urine cultures and blood cultures, there are no growth. Review of orders reveals the patient to be on p.o. doxycycline. The patient was given a dose of vancomycin, also on meropenem. ASSESSMENT AND PLAN: This is a 61-year-old female, who was seen earlier this morning in [facility], bed 1, with severe neutropenia and source as sepsis, must rule out healthcare-associated pneumonia and bilateral lower extremity edema and cellulitis. Currently on intermittent vancomycin, doxycycline and meropenem. We will check on the culture results and imaging, and we will make further recommendations. The patient has been afebrile for almost 24 hours; however, is still neutropenic. We will follow with you. Eliezer Stuart MD
[2017-07-30 06:39] LABS: MEAN CORPUSCULAR HEMOGLOBIN 22.9 pg (25.0-35.0); MEAN CORPUSCULAR HGB CONC 30.9 g/dl (31.0-37.0); RBC 3.93 10^6/uL (3.5-6.1); RED CELL DISTRIBUTION WIDTH 19.4 % (11.5-14.5)
[2017-07-30 06:45] LABS: WHITE BLOOD COUNT 0.5 10^3/ul (4.5-11.0)
[2017-07-30 06:46] LABS: PLATELET COUNT 28 10^3/uL (120.0-450.0)
[2017-07-30 07:15] LABS: ALB/GLOB RATIO 0.9 (1.1-1.8); ALBUMIN 2.9 g/dL (3.0-4.8); CALCIUM 8.5 mg/dL (8.4-10.5); MAGNESIUM 1.2 mg/dL (1.7-2.2)
[2017-07-30] MEDS ORDERED: Potassium Chloride 20 mEq ER Tab PO ONE ×4 (07:53→22:00)
--- NOTE | 2017-07-30 09:39 | PN ---
DATE: 07/29/2017 SUBJECTIVE: The patient has no complaints of any chest pain. No shortness of breath. No headache. PHYSICAL EXAMINATION VITAL SIGNS: Temperature is 99.5, pulse of 111, blood pressure 106/71, respirations is 20. GENERAL: The patient is lying in bed, flat, comfortable. HEENT: No oral lesion. Anicteric sclerae. Moist mucosa. NECK: No JVD, adenopathy, or thyromegaly. CARDIOVASCULAR: S1 and S2, regular. No murmurs, rubs, or gallops. LUNGS: Clear to auscultation bilaterally. No wheeze, rales, or rhonchi. ABDOMEN: Bowel sounds are positive, soft, nontender and nondistended. EXTREMITIES: no cyanosis, clubbing or edema. Right lower extremity ecchymosis of the lower leg. LABORATORY DATA: White count is 0.3, hemoglobin 9.5, creatinine is 2.6, potassium is 2.7, recent labs from yesterday. ASSESSMENT: 1. Thrombocytopenia. 2. Seizure. 3. Leukopenia. 4. Acute kidney injury secondary to nonsteroidal antiinflammatory drugs, improving. 5. Chronic obstructive pulmonary disease, stable. 6. Mediastinal lymphadenopathy. 7 Left adrenal mass, 2.2 cm. 8. Proteinuria, 1.5 g today PLAN: The patient's potassium will be replaced today. The patient is taking Diflucan. She is going to continue with doxycycline for antibiotics. Her cultures have been negative and the patient is on magnesium replacement for hypermagnesemia. The patient . The patient is receiving Meropenem for antibiotics and is on IV fluids. I will discontinue the patient's IV fluids at this point. . Alejandro Miranda MD
[2017-07-30] MEDS: Nystatin 100,000 Units/ml Oral Susp 5 ml UD PO SCH ×3 (09:47→18:22)
[2017-07-30] MEDS ORDERED: Magnesium Sulfate 2 GM in Sodium Chloride 0.9% 100 ML IV ONE ×2 (09:50→19:00)
[2017-07-30] MEDS: Vancomycin 25 MG/ML PO SCH ×2 (09:57→13:38)
[2017-07-30] MEDS: Potassium & Sodium Phosphate PO SCH ×2 (10:02→18:21)
--- NOTE | 2017-07-30 11:19 | PN ---
DATE: SUBJECTIVE: The patient is frustrated about being in the hospital. She has no complaints of any chest pain. No shortness of breath. No headaches. She is complaining of lower extremity edema. PHYSICAL EXAMINATION VITAL SIGNS: Temperature is 97.9, pulse is 72, blood pressure 119/77, respirations 18. GENERAL: The patient is lying in bed, flat, comfortable. HEENT: No oral lesion. Anicteric sclerae. Moist mucosa. NECK: No JVD, adenopathy, or thyromegaly. CARDIOVASCULAR: S1 and S2, regular. No murmurs, rubs, or gallops. LUNGS: Clear to auscultation bilaterally. No wheeze, rales, or rhonchi. ABDOMEN: Bowel sounds are positive. Soft, nontender and nondistended. EXTREMITIES: No cyanosis, clubbing. Lower extremities, there is 1+ edema. DATA: Labs are pending. Blood cultures and urine cultures have been negative. ASSESSMENT 1. Thrombocytopenia, severe. 2. Leukopenia. 3. Acute kidney injury secondary to nonsteroidal antiinflammatory drugs, improving. 4. Hypokalemia. 5. Diarrhea. 6. Chronic obstructive pulmonary disease, stable. 7. Mediastinal adenopathy. 8. 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 9. Lower extremity edema. 10. Proteinuria of 1.5 g today. The patient continues to be neutropenic. She is on isolation. The patient is being followed by Infectious Disease as well as Oncology. She is on IV fluids as well as Lasix. The IV fluid is mostly for potassium. She is on magnesium replacement. She is receiving cough medications. She is on Xopenex. She is on vancomycin. The patient is on heart-healthy diet. We will continue to follow her blood work closely to maintain her electrolytes. Overall prognosis is guarded. Alejandro Miranda MD
--- NOTE | 2017-07-30 17:47 | CP.PCM.PN ---
Subjective - Date & Time of Evaluation Date of Evaluation: 07/29/17 Time of Evaluation: 09:00 - Subjective Subjective: Comfortable in chair. leg swelling, redness improved. SOB improved. No bleeding. C/O diarrhea, few times. No abdominal pain. renal functions improved. Objective - Vital Signs/Intake and Output Vital Signs (last 24 hours): Temp Pulse Resp BP Pulse Ox 97.7 F 72 18 134/85 92 L 07/29/17 17:16 07/29/17 17:16 07/29/17 17:16 07/30/17 09:55 07/29/17 17:16 Intake and Output: 07/30/17 07/30/17 06:59 18:59 Intake Total 0 Output Total 600 Balance -600 - Medications Medications: Current Medications Acetaminophen (Tylenol 325mg Tab) 650 mg PO Q6H PRN PRN Reason: Pain, moderate (4-7) Last Admin: 07/29/17 17:28 Dose: 650 mg Fluconazole (Diflucan) 100 mg PO DAILY [facility] PRN Reason: Protocol Last Admin: 07/30/17 09:55 Dose: 100 mg Furosemide (Lasix) 40 mg IVP DAILY [facility] Last Admin: 07/30/17 09:55 Dose: 40 mg Meropenem 500 mg/ Sodium (Chloride) 100 mls @ 100 mls/hr IVPB Q24H [facility] PRN Reason: Protocol Stop: 08/05/17 22:31 Last Admin: 07/29/17 21:30 Dose: 100 mls/hr Magnesium Sulfate 2 gm/ Sodium (Chloride) 104 mls @ 102 mls/hr IV ONCE ONE Stop: 07/30/17 20:01 Loperamide HCl (Imodium) 2 mg PO QID PRN PRN Reason: Diarrhea Last Admin: 07/28/17 10:12 Dose: 2 mg Nystatin (Nystatin Oral Susp) 5 ml PO Q4H [facility] Last Admin: 07/30/17 13:37 Dose: 5 ml Potassium Chloride (K-Dur 20 Meq Er Tab) 40 meq PO ONCE ONE Stop: 07/30/17 22:01 Potassium Phos/Sodium Phos (Neutra-Phos) 1 pkt PO BID [facility] Stop: 08/04/17 10:01 Last Admin: 07/30/17 10:02 Dose: 1 pkt Sodium Chloride ([place] Nasal [place]) 0 ml NS TID [facility] Last Admin: 07/30/17 13:38 Dose: 2 spray - Labs Labs: 07/30/17 06:00 07/30/17 06:00 PT 14.8 SECONDS (9.4-12.5) H 07/27/17 00:00 INR 1.29 (0.93-1.08) H 07/27/17 00:00 APTT 27.7 Seconds (25.1-36.5) 07/27/17 00:00 - Constitutional Appears: Non-toxic, Chronically Ill - Head Exam Head Exam: ATRAUMATIC, NORMAL INSPECTION, NORMOCEPHALIC - Eye Exam Eye Exam: Normal appearance - ENT Exam ENT Exam: Mucous Membranes Moist - Neck Exam Neck Exam: Normal Inspection - Respiratory Exam Respiratory Exam: Clear to Ausculation Bilateral, NORMAL BREATHING PATTERN - Cardiovascular Exam Cardiovascular Exam: REGULAR RHYTHM, +S1, +S2 - GI/Abdominal Exam GI & Abdominal Exam: Soft, Normal Bowel Sounds - Back Exam Additional comments: B/L leg edema improved. redness improved. - Neurological Exam Neurological Exam: Alert, Awake, CN II-XII Intact, Oriented x3 - Skin Skin Exam: Pallor, Warm Assessment and Plan - Assessment and Plan (Free Text) Assessment: 1. Stage IV lung cancer > s/p first cycle of chemo carbo/gemzar. 2. Pancytopenia. On daily neupogen , continue same. s/p platelet transfusion. will monitor blood counts. 3. GI : diarrhea, c-diff on stool sample. on PP vanco. 4. IVF NS 80 cc/hr, stop after 1 litre. 5. KCL 10 mEq , 2 riders . 6. Mouth care : oral thrush resolved. on diflucan, nystatin mouth wash. 7. renal : improved.
[2017-07-30] MEDS: Meropenem 500 MG in Sodium Chloride 0.9% 100 ML IVPB SCH (21:31)
--- NOTE | 2017-07-30 22:36 | PN ---
DATE: 07/30/2017 SUBJECTIVE: Patient is seen early this morning in room 368, bed 1. She is refusing her antibiotics. She states she does not want anymore antibiotics. PHYSICAL EXAMINATION: VITAL SIGNS: Temperature is 98, T-max yesterday was 100.2 and day before that was 100.6; blood pressure is 119/70; respiratory rate of 18. HEENT: Unremarkable. NECK: Supple. LUNGS: Have decreased breath sounds. HEART: Normal S1, S2. ABDOMEN: Soft and nontender. LABORATORY EXAMINATION: Reveals the patient's white count is 0.5, hemoglobin is 9, platelets of 28,000. Chemistry reveals a BUN of 24, creatinine of 2.0. Urinalysis is noted. Microbiology reveals the blood cultures have no growth. Urine cultures have no growth. Dr. Wood has started fluconazole on 07/28 and the patient's legs are much improved. Patient is on p.o. vancomycin. ASSESSMENT AND PLAN: This is a 61-year-old female seen earlier today in 368, bed 1, with severe neutropenia, sepsis, neutropenic febrile. Lower extremity cellulitis has resolved. We will discontinue the doxycycline, which may give her the nausea feeling and p.o. vancomycin. We will continue the meropenem for now and waiting for an improvement in her white count. Overall prognosis is poor. Dr. Miranda's note from this morning is reviewed and Dr. Wood's consultation from 07/28 is reviewed. Stage IV lung cancer, status post first cycle of chemotherapy. We will continue present course. Eliezer Stuart MD
[2017-07-31] MEDS: Meropenem 500 MG in Sodium Chloride 0.9% 100 ML IVPB SCH ×3 (00:04→22:49)
[2017-07-31 07:06] LABS: ALB/GLOB RATIO 0.9 (1.1-1.8); CALCIUM 8.6 mg/dL (8.4-10.5)
[2017-07-31 07:11] LABS: HEMOGLOBIN 9.1 g/dL (12.0-16.0); MEAN CELL VOLUME 74.1 fl (80.0-105.0); MEAN CORPUSCULAR HEMOGLOBIN 22.9 pg (25.0-35.0); MEAN CORPUSCULAR HGB CONC 30.8 g/dl (31.0-37.0); MEAN PLATELET VOLUME 8.8 fl (7.0-11.0); RBC 3.98 10^6/uL (3.5-6.1); RED CELL DISTRIBUTION WIDTH 19.4 % (11.5-14.5)
[2017-07-31 07:58] LABS: WHITE BLOOD COUNT 1.2 10^3/ul (4.5-11.0)
[2017-07-31 07:59] LABS: PLATELET COUNT 21 10^3/uL (120.0-450.0)
[2017-07-31 08:12] LABS: BASO # 0.07 K/mm3 (0.0-2.0); BASO % 6.5 % (0.0-3.0); LYMPH # 0.8 (1.2-3.4); LYMPH % 70.1 % (22.0-35.0); MONO # 0.3 (0.1-0.6); MONO % 23.4 % (1.0-6.0)
[2017-07-31] MEDS ORDERED: Potassium Chloride 20 mEq ER Tab PO ONE ×3 (09:10→20:00)
[2017-07-31 09:14] LABS: ATYPICAL LYMPHOCYTE 4 % (0.0-0.0); BAND 2 % (0-2); LYMPHOCYTE 79 % (22.0-35.0); MONOCYTE 9 % (1.0-6.0); NEUTROPHIL 6 % (50.0-70.0)
[2017-07-31] MEDS: Potassium & Sodium Phosphate PO SCH ×2 (09:54→17:35)
[2017-07-31] MEDS: Nystatin 100,000 Units/ml Oral Susp 5 ml UD PO SCH ×4 (09:55→20:48)
--- NOTE | 2017-07-31 12:16 | PN ---
DATE: 07/31/2017 SUBJECTIVE: The patient has no complaints of any chest pain. No shortness of breath. She states she continues to have diarrhea. She allowing for the antibiotics to be given. PHYSICAL EXAMINATION: VITAL SIGNS: Temperature is 97.7, pulse is 72, blood pressure is 134/85, respirations 18. GENERAL: The patient is lying in bed, flat, comfortable. HEENT: No oral lesion. Anicteric sclerae. Moist mucosa. NECK: No JVD, adenopathy, or thyromegaly. CARDIOVASCULAR: S1 and S2, regular. No murmurs, rubs, or gallops. LUNGS: Clear to auscultation bilaterally. No wheeze, rales, or rhonchi. ABDOMEN: Bowel sounds are positive. Soft, nontender and nondistended. EXTREMITIES: No cyanosis or clubbing. Lower extremities, there is 1+ edema. ASSESSMENT 1. Hypokalemia. 2. Thrombocytopenia. 3. Neutropenic fever. 4. Acute kidney injury secondary to nonsteroidal antiinflammatory drugs. 5. Diarrhea. 6. Chronic obstructive pulmonary disease. 7. Mediastinal adenopathy. 8. 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 9. Lower extremity edema. 10. Proteinuria of 1.5 grams per day. PLAN: The patient is very comfortable. She continues to have severe anemia. The patient's doxycycline has been discontinued by Dr. Stuart. I did review his notes. He is continuing on his meropenem. The patient had received chemotherapy and this is the reason for her complications with the pancytopenia and diarrhea. I gave her significant amount of potassium yesterday. She did not allow for IV potassium the day before to finish. The patient is on Lasix because of her edema. She was given magnesium replacement as well yesterday because of hypomagnesemia. Her labs are pending for this morning. She is on Tylenol p.r.n. She has no fever this morning. Her last elevated temperature was 100.2, this was two days ago. We will continue to follow closely. Overall prognosis is guarded. Alejandro Miranda MD [facility] # [id number]
[2017-07-31] MEDS ORDERED: Meropenem 500 MG in Sodium Chloride 0.9% 100 ML IVPB SCH (23:04)
[2017-08-01] MEDS: Nystatin 100,000 Units/ml Oral Susp 5 ml UD PO SCH ×4 (02:30→10:26)
--- NOTE | 2017-08-01 03:42 | PN ---
DATE: 07/31/2017 SUBJECTIVE: Patient is in bed, in no acute distress. She was seen earlier today in room 368. PHYSICAL EXAMINATION: VITAL SIGNS: Temperature of 98, blood pressure is 160/80, respiratory rate 20, heart rate of 118. HEENT: Unremarkable. NECK: Supple. LUNGS: Have decreased breath sounds. HEART: Normal S1 and S2. ABDOMEN: Soft. EXTREMITIES: On examination, her legs are resolving nicely. LABORATORY DATA: Reveals white count is 1.2, hemoglobin of 9, platelets of 21,000. Patient's absolute granulocyte count is 0. Patient has been afebrile, now for almost 24 to 48 hours. ASSESSMENT AND PLAN: This is a 61-year-old female with severe neutropenia and sepsis, neutropenic, febrile. Patient has lower extremity cellulitis, currently on IV meropenem. Still neutropenic. Has been afebrile now up to almost 48 hours with a stage IV lung cancer status post chemotherapy. We will follow closely with you. Overall prognosis is poor. Eliezer Stuart MD
[2017-08-01 07:38] LABS: HEMOGLOBIN 9.9 g/dL (12.0-16.0); MEAN CELL VOLUME 74.1 fl (80.0-105.0); MEAN CORPUSCULAR HEMOGLOBIN 23.3 pg (25.0-35.0); MEAN CORPUSCULAR HGB CONC 31.5 g/dl (31.0-37.0); MEAN PLATELET VOLUME 9.3 fl (7.0-11.0); RBC 4.24 10^6/uL (3.5-6.1); RED CELL DISTRIBUTION WIDTH 19.8 % (11.5-14.5); WHITE BLOOD COUNT 3.1 10^3/ul (4.5-11.0)
[2017-08-01 07:55] LABS: ALB/GLOB RATIO 0.9 (1.1-1.8); ALBUMIN 3.2 g/dL (3.0-4.8); CALCIUM 8.8 mg/dL (8.4-10.5); MAGNESIUM 1.4 mg/dL (1.7-2.2)
[2017-08-01] MEDS ORDERED: Potassium Chloride 20 mEq ER Tab PO ONE ×2 (08:13→12:00)
[2017-08-01] MEDS ORDERED: Magnesium Sulfate 2 GM in Sodium Chloride 0.9% 100 ML IV ONE (08:14)
[2017-08-01 08:27] VITALS: PULSE 106; RESP 22; TEMP 97.9; O2SAT 94
[2017-08-01 10:16] LABS: BASO # 0.15 K/mm3 (0.0-2.0); BASO % 4.8 % (0.0-3.0); GRAN # 1.02 (1.4-6.5); GRAN % 32.8 % (50.0-68.0); LYMPH # 1.1 (1.2-3.4); LYMPH % 34.4 % (22.0-35.0); MONO # 0.9 (0.1-0.6)
[2017-08-01] MEDS: Potassium & Sodium Phosphate PO SCH (10:22)
[2017-08-01 10:34] VITALS: BP 106/60
--- NOTE | 2017-08-01 11:16 | PN ---
DATE: 08/01/2017 SUBJECTIVE: The patient has no complaints of any chest pain. No shortness of breath. She states that she has a difficult time in sleeping, this is her biggest problem. PHYSICAL EXAMINATION: VITAL SIGNS: Temperature is 98.7, pulse of 116, blood pressure 132/74, respirations is 20. GENERAL: The patient is lying in bed, flat, comfortable. HEENT: No oral lesion. Anicteric sclerae. Moist mucosa. NECK: No JVD, adenopathy, or thyromegaly. CARDIOVASCULAR: S1 and S2, regular. No murmurs, rubs, or gallops. LUNGS: Clear to auscultation bilaterally. No wheeze, rales, or rhonchi. ABDOMEN: Bowel sounds are positive, soft, nontender and nondistended. EXTREMITIES: Right lower extremity edema 1+. LABS: White count is 1.2, hemoglobin 9.1, potassium is 3.0, creatinine is 2.1. ASSESSMENT: 1. Thrombocytopenia. 2. Hypokalemia. 3. Neutropenic fever. 4. Acute kidney injury secondary to nonsteroidal antiinflammatory drugs, improving. 5. Chronic obstructive pulmonary disease. 6. Mediastinal adenopathy. 7. 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 8. Left lower extremity edema. 9. Proteinuria of 1.5 grams per day. PLAN: The patient is improving slowly. The patient's white count is started to improve, potassium also is better controlled. Continue to supplement. The patient's electrolytes including magnesium, phosphorus, potassium. I did speak with Dr. Wood, yesterday about the patient; the patient is going to be continued on mcg subcutaneously daily. She is on Diflucan. The patient is on meropenem for antibiotics. She is on nystatin solution. The patient is on Tylenol as needed. The patient's blood cultures have been negative. Urine cultures have been negative. We will repeat blood work tomorrow. C. diff has been done that is also negative for C. diff. Alejandro Miranda MD
--- NOTE | 2017-08-01 11:39 | CP.PCM.PN ---
Subjective - Date & Time of Evaluation Date of Evaluation: 07/31/17 Time of Evaluation: 09:00 - Subjective Subjective: Comfortable in chair. Leg swelling decreased. No fever, cough. ambulating in room. Blood counts improved. No bleeding from any site. Objective - Vital Signs/Intake and Output Vital Signs (last 24 hours): Temp Pulse Resp BP Pulse Ox 97.9 F 106 H 22 106/60 94 L 08/01/17 06:00 08/01/17 06:00 08/01/17 06:00 08/01/17 10:20 08/01/17 06:00 Intake and Output: 08/01/17 08/01/17 06:59 18:59 Intake Total 860 Output Total 750 Balance 110 - Medications Medications: Current Medications Acetaminophen (Tylenol 325mg Tab) 650 mg PO Q6H PRN PRN Reason: Pain, moderate (4-7) Last Admin: 07/29/17 17:28 Dose: 650 mg Fluconazole (Diflucan) 100 mg PO DAILY LUZ MARINA PRN Reason: Protocol Last Admin: 08/01/17 10:08 Dose: 100 mg Furosemide (Lasix) 40 mg IVP DAILY [facility] Last Admin: 08/01/17 10:20 Dose: 40 mg Meropenem 500 mg/ Sodium (Chloride) 100 mls @ 100 mls/hr IVPB 1800 LUZ MARINA PRN Reason: Protocol Stop: 08/05/17 22:31 Loperamide HCl (Imodium) 2 mg PO QID PRN PRN Reason: Diarrhea Last Admin: 07/30/17 22:58 Dose: 2 mg Nystatin (Nystatin Oral Susp) 5 ml PO Q4H [facility] Last Admin: 08/01/17 10:26 Dose: 5 ml Potassium Chloride (K-Dur 20 Meq Er Tab) 40 meq PO ONCE ONE Stop: 08/01/17 12:01 Potassium Phos/Sodium Phos (Neutra-Phos) 1 pkt PO BID [facility] Stop: 08/04/17 10:01 Last Admin: 08/01/17 10:22 Dose: 1 pkt Sodium Chloride ([place]) 0 ml NS TID LUZ MARINA Last Admin: 08/01/17 10:26 Dose: 1 spray - Labs Labs: 08/01/17 06:45 08/01/17 06:50 PT 14.8 SECONDS (9.4-12.5) H 07/27/17 00:00 INR 1.29 (0.93-1.08) H 07/27/17 00:00 APTT 27.7 Seconds (25.1-36.5) 07/27/17 00:00 - Constitutional Appears: Chronically Ill - Head Exam Head Exam: ATRAUMATIC, NORMAL INSPECTION, NORMOCEPHALIC - Eye Exam Eye Exam: Normal appearance Pupil Exam: NORMAL ACCOMODATION - ENT Exam ENT Exam: Mucous Membranes Moist - Neck Exam Neck Exam: Normal Inspection - Respiratory Exam Respiratory Exam: Clear to Ausculation Bilateral, NORMAL BREATHING PATTERN - Cardiovascular Exam Cardiovascular Exam: REGULAR RHYTHM, +S1, +S2 - GI/Abdominal Exam GI & Abdominal Exam: Soft, Normal Bowel Sounds - Extremities Exam Extremities Exam: Normal Inspection - Back Exam Back Exam: NORMAL INSPECTION - Neurological Exam Neurological Exam: Alert, Awake, CN II-XII Intact, Normal Gait, Oriented x3 - Skin Skin Exam: Normal Color, Warm Assessment and Plan - Assessment and Plan (Free Text) Assessment: 1. Stage IV lung cancer, s/p first cycle of chemo. 2. Pancytopenia : blood counts improving. No blood products today. 3. Renal : ARF improving. 4. Pulm : SOB improved. 5. CV :stable. 6. continue mouth care.
--- NOTE | 2017-08-01 20:44 | PN ---
DATE: SUBJECTIVE: Patient is in bed, in no acute distress, nontoxic. No fevers. PHYSICAL EXAMINATION: VITAL SIGNS: Temperature is 98, blood pressure is 106/50, respiratory rate of 22. HEENT: Unremarkable. NECK: Supple. LUNGS: Have decreased breath sounds. HEART: Normal S1 and S2. ABDOMEN: Soft. LABORATORY DATA: Reveals a white count of 3.1, hemoglobin of 9, platelets of 46. Chemistry revealed a BUN of 18, creatinine of 2.0, procalcitonin of 0.2. Urinalysis is noted. Microbiology reveals the patient's cultures are noted. ASSESSMENT AND PLAN: This is a 61-year-old female, who was seen earlier this morning in room 360, bed 1, doing well, with severe neutropenia, sepsis, neutropenic febrile. Patient had lower extremity cellulitis that has resolved. Neutropenia is also resolved, with a white count this morning of 3.1, with absolute granulocyte count of over 1000. Dr. Miranda's note from today is reviewed, and nursing note is reviewed, and we will follow . Eliezer Stuart MD
== END 2017-08-01 14:34 | disposition home or self-care (01) | DRG 871 ==
LOC: ED 21:39 → ERH 07-27 02:38 → 5RSO 07-27 03:49 → 5RNO 07-27 04:10 → 3RNO 07-27 20:59
PROVIDERS: ADMIT Internal Medicine Nephrology; ATTEND Internal Medicine Nephrology
PROC: 6A551Z2 Pheresis of Platelets, Multiple (ICD-10-PCS; principal; 2017-07-27)
PROC: 30233N1 Transfusion of Nonautologous Red Blood Cells into Peripheral Vein, Percutaneous Approach (ICD-10-PCS; 2017-07-28)
DX: A41.9 Sepsis, unspecified organism (principal); D61.810 Antineoplastic chemotherapy induced pancytopenia; N17.9 Acute kidney failure, unspecified; J18.9 Pneumonia, unspecified organism; B37.0 Candidal stomatitis; C34.90 Malignant neoplasm of unspecified part of unspecified bronchus or lung; L03.119 Cellulitis of unspecified part of limb; J44.0 Chronic obstructive pulmonary disease with (acute) lower respiratory infection; D70.3 Neutropenia due to infection; E27.9 Disorder of adrenal gland, unspecified; E87.6 Hypokalemia; R50.81 Fever presenting with conditions classified elsewhere; R56.9 Unspecified convulsions; T39.395A Adverse effect of other nonsteroidal anti-inflammatory drugs [NSAID], initial encounter; T45.1X5A Adverse effect of antineoplastic and immunosuppressive drugs, initial encounter; Y95 Nosocomial condition; Z80.6 Family history of leukemia; Z82.49 Family history of ischemic heart disease and other diseases of the circulatory system; Z83.3 Family history of diabetes mellitus; Z87.891 Personal history of nicotine dependence; R59.0 Localized enlarged lymph nodes

== ENCOUNTER 2017-09-05 18:21 | Inpatient (IN) | payer OTHER ==
--- NOTE | 2017-09-05 18:47 | ED PDOC ---
Arrival/HPI - General Chief Complaint: Shortness Of Breath Time Seen by Provider: 09/05/17 18:33 Historian: Patient, Spouse - History of Present Illness Narrative History of Present Illness (Text): 09/05/17 18:44 pt p/w + ~ 8 days onset of initially exertional sob and progressively worsening weakness/fatigue; over the last few days, pt states sob became at rest sob and pt is having a very difficult time to complete her daily tasks; pt also has noted to be on oxygen supplementation x 8 days, where she usually would only need it at night only; pt states no new leg swelling; pt states no fever/chills/ sweats, + feeling cold at times, + persistent (chronic) chest aches noted; no abd pain, no n/v, no numbness/tingling, no urinary/bowel changes, no rashes; pt states NO LOC, ? lightheadedness/weakness; pt was seen by oncologists Dr Wood this week and had blood tests drawn and was noted to have very Low H/H; pt was instructed to come to ED for further eval/txt/mgt pt states no other complaints + left lung cancer, active chemo txt, 3rd round 09/01 pt was recently admitted for anemia/neutropenia requiring 2U of plt and 2U of RBCs PCP: Dr Dunn oncologists: Dr Wood? Time/Duration: > week Symptom Onset: Gradual Symptom Course: Worsening Severity Level: Severe Activities at Onset: Other (exertional and now at rest sob) Context: Walking, Exertion, Home Past Medical History - Provider Review Nursing Documentation Reviewed: Yes - Travel History Have you recently traveled outside [place] w/in the past 3 mons?: No - Past History Past History: No Previous - Infectious Disease Hx of Infectious Diseases: None - Reproductive Menopause: No Currently : No - Past Medical History Past Medical History: No Previous - Cardiac Hx Cardiac Disorders: No Hx Pacemaker: No - Pulmonary Hx Respiratory Disorders: Yes Hx Chronic Obstructive Pulmonary Disease (COPD): Yes Hx Emphysema: Yes Hx Lung Cancer: Yes - Neurological Hx Neurological Disorder: No Hx Paralysis: No - HEENT Hx HEENT Disorder: No - Renal Hx Renal Disorder: Yes Hx Renal Failure: Yes - Endocrine/Metabolic Hx Endocrine Disorders: No - Hematological/Oncological Hx Blood Disorders: Yes Hx Anemia: Yes Hx Chemotherapy: Yes (last dose 07-21-17) - Integumentary Hx Dermatological Disorder: No - Musculoskeletal/Rheumatological Hx Musculoskeletal Disorders: No - Gastrointestinal Hx Gastrointestinal Disorders: No - Genitourinary/Gynecological Hx Genitourinary Disorders: No - Psychiatric Hx Psychophysiologic Disorder: No Hx Emotional Abuse: No Hx Physical Abuse: No Hx Substance Use: No - Surgical History Other/Comment: Breast reduction. R chest port - Anesthesia Hx Anesthesia: Yes Hx Anesthesia Reactions: No Hx Malignant Hyperthermia: No - Suicidal Assessment Feels Threatened In Home Enviroment: No Family/Social History - Physician Review Nursing Documentation Reviewed: Yes Family/Social History: No Known Family HX Smoking Status: Former Smoker Hx Alcohol Use: No (ocassional) Hx Substance Use: No Hx Substance Use Treatment: No Allergies/Home Meds Allergies/Adverse Reactions: Allergies No Known Allergies Allergy (Verified 09/05/17 18:24) Home Medications: Home Meds Medication Instructions Recorded Confirmed No Known Home Med 09/05/17 09/05/17 Review of Systems - Review of Systems Constitutional: Fatigue. absent: Weight Change, Night Sweats Eyes: Normal ENT: Normal Respiratory: SOB, Cough (chronic) Cardiovascular: Chest Pain (chronic) Gastrointestinal: Normal Genitourinary Female: Normal Musculoskeletal: Normal Skin: Normal Neurological: Dizziness. absent: Headache Endocrine: Normal Hemo/Lymphatic: Normal Psychiatric: Normal Physical Exam Vital Signs Reviewed: Yes Vital Signs Temp Pulse Resp BP Pulse Ox 09/05/17 18:42 98.3 F 112 H 20 140/88 98 09/05/17 18:30 20 98 Temperature: Afebrile Blood Pressure: Normal Pulse: Tachycardic Respiratory Rate: Normal Appearance: Positive for: Well-Appearing, Uncomfortable, Other (uncomfortable, alert/awake, GCS = 15, oriented x 3, mild-moderate distress due to sob; cooperative, follows command with ease) Pain Distress: None Mental Status: Positive for: Alert and Oriented X 3 - Systems Exam Head: Present: Atraumatic, Normocephalic, Other (mild bi-temporal wasting) Pupils: Present: PERRL, Other (pale sclera, no nystagmus, no photophobia, visual field intact b/l) Extroacular Muscles: Present: EOMI Conjunctiva: Present: Normal Ears: Present: Normal Mouth: Present: Dry, Normal Teeth Pharnyx: Present: Normal Nose (External): Present: Atraumatic Nose (Internal): Present: Normal Inspection Neck: Present: Normal Range of Motion, Trachea Midline, Other (intact ROM, no midline tenderness, no nuchal rigidity, no meningeal signs). No: MIDLINE TENDERNESS Respiratory/Chest: Present: Respiratory Distress, Decreased Breath Sounds, Other (decr breath sounds noted to left lung, coarse breath sounds noted b/l; no w/r/r, + tachypenia, no accessory muscle use noted). No: Accessory Muscle Use, Wheezes Cardiovascular: Present: Normal S1, S2, Other (+ tachy, mildly distant heart sounds noted, no murmur). No: Murmurs Abdomen: Present: Normal Bowel Sounds, Other (well nourished female, no focal tenderness, no masses/rebound/guarding/rigidity, no gar's sign, no mcburney' s point tenderness) Back: Present: Normal Inspection. No: CVA Tenderness, Midline Tenderness Upper Extremity: Present: Normal Inspection, Normal ROM, NORMAL PULSES, Neurovascularly Intact. No: Deformity Lower Extremity: Present: Normal Inspection, Edema (+ 1-2/5 b/l lower ext pitting edema, no homans' sign), NORMAL PULSES, Normal ROM, Neurovascularly Intact. No: Kenrick's Sign Neurological: Present: GCS=15, CN II-XII Intact, Speech Normal Skin: Present: Warm, Dry, Other (+ pallor, cap refill ~ 1sec, no ulcerations, no petechiae) Psychiatric: Present: Alert Medical Decision Making ED Course and Treatment: 09/05/17 18:45 Impression: exertional/at rest SOB with lung cancer i have consider all the differential diagnosis regarding pt's chief medical complaints/clinical findings, including but are not limited to: exertional/at rest SOB with lung cancer A/P: exertional/at rest SOB with lung cancer - xray - labs - acs eval - observe - supportive care 09/05/17 20:04 pt is currently comfortable, awaiting blood transfusion paging Dr Dunn/[place], states dr encinas maybe covering them 09/05/17 20:[address] Wood, made aware, agrees with admission of the patient, and transfusion 2U of PRBCs, would like to repeate CBC now however Re-evaluation Time: 19:38 Reassessment Condition: Improving,but remains with symptoms - Critical Care Critical Care Minutes: 45 minutes Critical Care Time: Excluding Proc Time Narrative Critical Care (Text): 09/05/17 19:38 critical care time: 45min, excluding procedure time, excluding time teaching residents/students/mid-level providers; including initial eval/diagnosis, diagnostic interpretation, re-eval, consultations, final disposition - Lab Interpretations Lab Results: 09/05/17 19:00 09/05/17 19:00 Lab Results 09/05/17 19:59: Blood Type Pending, Antibody Screen Pending, Crossmatch See Detail, BBK History Checked Patient has bt 09/05/17 19:00: TSH 3rd Generation 2.59 09/05/17 19:00: Sodium 134, Chloride 94 L, Potassium 3.0 L, Carbon Dioxide 33, Anion Gap 10, BUN 21, Creatinine 1.5 H, Est GFR ( Amer) 43, Est GFR (Non- Af Amer) 35, Random Glucose 115 H, Calcium 8.9, Total Bilirubin 0.6, AST 29, ALT 23, Alkaline Phosphatase 157 H D, Lactate Dehydrogenase 454, Total Creatine Kinase 27 L, Troponin I < 0.01, NT-Pro-B Natriuret Pep 3610 H, Total Protein 7.2 , Albumin 3.4, Globulin 3.8, Albumin/Globulin Ratio 0.9 L 09/05/17 19:00: pO2 82 H, VBG pH 7.41, VBG pCO2 54.0, VBG HCO3 34.2 H, VBG Total CO2 35.9 H, VBG O2 Sat (Calc) 98.2 H, VBG Base Excess 7.8 H, VBG Potassium 2.9 L, Sodium 132.0, Chloride 98.0, Glucose 117 H, Lactate 0.6 L, FiO2 21.0, Venous Blood Potassium 2.9 L 09/05/17 19:00: PT 13.1 H, INR 1.15 H, APTT 30.2 09/05/17 19:00: WBC 10.4 D, RBC 2.31 L, Hgb 5.8 L* D, Hct 18.2 L*, MCV 78.8 L D , MCH 25.1, MCHC 31.9, RDW 26.3 H, Plt Count 345, MPV 8.1, Gran % 83.5 H, Lymph % (Auto) 11.9 L, Winn % (Auto) 1.6, Eos % (Auto) 2.8, Baso % (Auto) 0.2, Gran # 8.64 H, Lymph # (Auto) 1.2, Winn # (Auto) 0.2, Eos # (Auto) 0.3, Baso # (Auto) 0.02 I have reviewed the lab results: Yes Interpretation: Abnormal lab values - RAD Interpretation Narrative RAD Interpretations (Text): 09/05/17 20:05 + right claudia-cath + pulm vasc congestion, ? pulm edema Radiology Orders: 09/05/17 18:34 CHEST TWO VIEWS (PA/LAT) [RAD] Stat All Source Intelligence Technician: ED Physician - EKG Interpretation EKG Interpretation (Text): 09/05/17 18:46 Sinus tach at 120 bpm, normal axis, no ectopy, incomplete RBBB, non-specific st- t changes, ABNL EKG; unchanged compare with old ekg 07/2017 Interpreted by ED Physician: Yes Type: 12 lead EKG Comparison: Similar to previous EKG - Medication Orders Current Medication Orders: Discontinued Medications Furosemide (Lasix) 20 mg IVP STAT STA Stop: 09/05/17 20:22 Potassium Chloride (K-Dur 20 Meq Er Tab) 20 meq PO STAT STA Stop: 09/05/17 19:28 Last Admin: 09/05/17 19:38 Dose: 20 meq Disposition/Present on Arrival - Present on Arrival Any Indicators Present on Arrival: No History of DVT/PE: No History of Uncontrolled Diabetes: No Urinary Catheter: No History of Decub. Ulcer: No History Surgical Site Infection Following: None - Disposition Have Diagnosis and Disposition been Completed?: Yes Diagnosis: Symptomatic anemia, Lung cancer, Hypokalemia, Acute CHF, Weakness Disposition: HOSPITALIZED Disposition Time: 19:38 Patient Plan: Admission, Telemetry Patient Problems: Current Active Problems Problem Status Onset Hypokalemia Acute Symptomatic anemia Acute Lung cancer Acute Acute CHF Acute Condition: STABLE Discharge Instructions (ExitCare): Heart Failure (ED), Weakness (ED) Referrals: Christine Wood MD [Primary Care Provider] - Follow up with primary Forms: [email or web address] ([place]itian)
[2017-09-05 19:20] LABS: VENOUS BLOOD GAS BASE EXCESS 7.8 mmol/L (0.0-2.0); VENOUS BLOOD GAS PO2 82 mm/Hg (30-55); VENOUS BLOOD PH 7.41 (7.32-7.43)
[2017-09-05 19:25] LABS: BASO # 0.02 K/mm3 (0.0-2.0); BASO % 0.2 % (0.0-3.0); EOS # 0.3 (0.0-0.7); EOS % 2.8 % (1.5-5.0); GRAN # 8.64 (1.4-6.5); GRAN % 83.5 % (50.0-68.0); LYMPH # 1.2 (1.2-3.4); LYMPH % 11.9 % (22.0-35.0); MEAN CELL VOLUME 78.8 fl (80.0-105.0); MEAN CORPUSCULAR HEMOGLOBIN 25.1 pg (25.0-35.0); MEAN CORPUSCULAR HGB CONC 31.9 g/dl (31.0-37.0); MEAN PLATELET VOLUME 8.1 fl (7.0-11.0); MONO # 0.2 (0.1-0.6); MONO % 1.6 % (1.0-6.0); RBC 2.31 10^6/uL (3.5-6.1); RED CELL DISTRIBUTION WIDTH 26.3 % (11.5-14.5); WHITE BLOOD COUNT 10.4 10^3/ul (4.5-11.0)
[2017-09-05 19:27] LABS: ALB/GLOB RATIO 0.9 (1.1-1.8); ALBUMIN 3.4 g/dL (3.0-4.8); ALT/SGPT 23 U/L (7-56); AST/SGOT 29 U/L (14-36); BLOOD UREA NITROGEN 21 mg/dL (7-21); CALCIUM 8.9 mg/dL (8.4-10.5); GFR AFRICAN-AMERICAN 43; GFR NON-AFRICAN AMERICAN 35
[2017-09-05] MEDS ORDERED: Potassium Chloride 20 mEq ER Tab PO STA (19:27)
[2017-09-05 19:29] LABS: INR 1.15 (0.93-1.08); PARTIAL THROMBOPLASTIN TIME 30.2 Seconds (25.1-36.5); PROTHROMBIN TIME 13.1 SECONDS (9.4-12.5)
[2017-09-05 19:34] LABS: HEMOGLOBIN 5.8 g/dL (12.0-16.0)
[2017-09-05 19:39] LABS: B-TYPE NATRIURETIC PEPTIDE 3610 pg/mL (0-450); TROPONIN I < 0.01 ng/mL
[2017-09-05 21:08] LABS: HEMOGLOBIN 7.6 g/dL (12.0-16.0); MEAN CELL VOLUME 78.9 fl (80.0-105.0); MEAN CORPUSCULAR HEMOGLOBIN 25.5 pg (25.0-35.0); MEAN CORPUSCULAR HGB CONC 32.3 g/dl (31.0-37.0); MEAN PLATELET VOLUME 7.6 fl (7.0-11.0); RBC 2.98 10^6/uL (3.5-6.1); RED CELL DISTRIBUTION WIDTH 26.4 % (11.5-14.5); WHITE BLOOD COUNT 9.3 10^3/ul (4.5-11.0)
--- NOTE | 2017-09-05 22:22 | CP.PCM.HP ---
History of Present Illness - History of Present Illness History of Present Illness: Patient sent form office for PRBC transfusion. Hb was 8.5 gm/dl done yesterday in office. She has lung cancer stage IV . She has baseline shortness of breath , on home oxygen. CXR showed mild pulmonary congestion. Hb was 5gm/dl in ER, it was repeated again - it was 7.6 gm/dl. 2units of PRBC ordered. She also has renal insufficiency, improving. No fever. Dry cough . Present on Admission - Present on Admission Any Indicators Present on Admission: No Review of Systems - Constitutional Constitutional: As Per HPI - EENT Eyes: absent: As Per HPI, Blind Spots, Blurred Vision, Change in Vision, Decreased Night Vision, Diplopia, Discharge, Dry Eye, Exophthalmos, Floaters, Irritation, Itchy Eyes, Loss of Peripheral Vision, Pain, Photophobia, Requires Corrective Lenses, Sees Flashes, Spots in Vision, Tunnel Vision, Other Visual Disturbances, Loss of Vision, Other Nose/Mouth/Throat: absent: As Per HPI, Epistaxis, Nasal Congestion, Nasal Discharge, Nasal Obstruction, Nasal Trauma, Nose Pain, Post Nasal Drip, Sinus Pain, Sinus Pressure, Bleeding Gums, Change in Voice, Dental Pain, Dry Mouth, Dysphagia, Halitosis, Hoarsness, Lip Swelling, Mouth Lesions, Mouth Pain, Odynophagia, Sore Throat, Throat Swelling, Tongue Swelling, Facial Pain, Neck Pain, Neck Mass, Other - Breasts Breasts: absent: As Per HPI, Change in Shape, Mass, Pain, Nipple Discharge, Nipple Inversion, Skin Changes, Swelling, Other - Cardiovascular Cardiovascular: absent: As Per HPI, Acrocyanosis, Chest Pain, Chest Pain at Rest , Chest Pain with Activity, Claudication, Diaphoresis, Dyspnea, Dyspnea on Exertion, Edema, Irregular Heart Rhythm, Pain Radiating to Arm/Neck/Jaw, Leg Edema, Leg Ulcers, Lightheadedness, Orthopnea, Palpitations, Paroxysmal Nocturnal Dyspnea, Pedal Edema, Radiating Pain, Rapid Heart Rate, Slow Heart Rate, Syncope, Other - Respiratory Respiratory: As Per HPI - Gastrointestinal Gastrointestinal: absent: As Per HPI, Abdominal Pain, Belching, Bloating, Change in Bowel Habits, Change in Stool Character, Coffee Ground Emesis, Constipation, Cramping, Diarrhea, Dyspepsia, Dysphagia, Early Satiety, Excessive Flatus, Fecal Incontinence, Heartburn, Hematemesis, Hematochezia, Loose Stools, Melena, Nausea, Odynophagia, Temesmus, Vomiting, Other - Genitourinary Genitourinary: absent: As Per HPI, Change in Urinary Stream, Difficulty Urinating, Dysuria, Flank Pain, Hematuria, Pyuria, Nocturia, Urinary Incontinence, Urinary Frequency, Urinary Hesitance, Urinary Urgency, Voiding Freq/Small Amts, Freq UTI, Hx Renal/Bladder Calculi, Hx /Renal Surgery, Bladder Distension, Other - Reproductive: Female Reproductive:Female: absent: As Per HPI, Amenorrhea, Amenorrhea/ Control, Currently Menstual, Cycle <21 Days, Cycle >35 Days, Cycle Variable, Menses 1-7 Days, Menses >/= 8 Days, Menses Variable, Cycle > 4 Weeks Between, No Menses for 6 Months, Heavy Menses, Light Menses, Normal Menses, Spotting Between Cycles , S/P Hysterectomy, Menopausal, Post Menopausal, Premenarche, Abnormal Vaginal Bleeding, Dysmenorrhea, Dyspareunia, Genital Lesions, Genital Pruritis, Pelvic Pain, Prolapse Symptoms, Sexual Dysfunction, Vaginal Discharge, Vaginal Dryness , Vaginal Odor, Vaginal Pruritis, Other - Integumentary Integumentary: Swelling - Neurological Neurological: absent: As Per HPI, Abnormal Gait, Abnormal Hearing, Abnormal Movements, Abnormal Speech, Behavioral Changes, Burning Sensations, Confusion, Convulsions, Disequilibrium, Dizziness, Numbness, Focal Weakness, Frequent Falls , Headaches, Lack of Coordination, Loss of Vision, Memory Loss, Paresthesias, Radicular Pain, Restless Legs, Sensory Deficit, Syncope, Tingling, Tremor, Vertigo, Weakness, Other Visual Disturbances, Other - Endocrine Endocrine: absent: As Per HPI, Change in Body Appearance, Change in Libido, Cold Intolorance, Deepening of Voice, Excessive Sweating, Fatigue, Flushing, Heat Intolorance, Increase in Ring/Shoe/Hat Size, Palpitations, Polydipsia, Polyphagia, Polyuria, Other - Hematologic/Lymphatic Hematologic: As Per HPI Past Patient History - Infectious Disease Hx of Infectious Diseases: None - Past Social History Smoking Status: Former Smoker - CARDIAC Hx Cardiac Disorders: No Hx Pacemaker: No - PULMONARY Hx Respiratory Disorders: Yes Hx Chronic Obstructive Pulmonary Disease (COPD): Yes Hx Emphysema: Yes Hx Lung Cancer: Yes - NEUROLOGICAL Hx Neurological Disorder: No Hx Paralysis: No - HEENT Hx HEENT Problems: No - RENAL Hx Chronic Kidney Disease: Yes Hx Renal Failure: Yes - ENDOCRINE/METABOLIC Hx Endocrine Disorders: No - HEMATOLOGICAL/ONCOLOGICAL Hx Blood Disorders: Yes Hx Anemia: Yes Hx Chemotherapy: Yes (last dose 218) - INTEGUMENTARY Hx Dermatological Problems: No - MUSCULOSKELETAL/RHEUMATOLOGICAL Hx Musculoskeletal Disorders: No - GASTROINTESTINAL Hx Gastrointestinal Disorders: No - GENITOURINARY/GYNECOLOGICAL Hx Genitourinary Disorders: No - PSYCHIATRIC Hx Psychophysiologic Disorder: No Hx Emotional Abuse: No Hx Physical Abuse: No Hx Substance Use: No - SURGICAL HISTORY Other/Comment: Breast reduction. R chest port - ANESTHESIA Hx Anesthesia: Yes Hx Anesthesia Reactions: No Hx Malignant Hyperthermia: No Meds Allergies/Adverse Reactions: Allergies Allergy/AdvReac Type Severity Reaction Status Date / Time No Known Allergies Allergy Verified 09/05/17 18:24 Physical Exam - Constitutional Appears: Non-toxic - Head Exam Head Exam: ATRAUMATIC, NORMAL INSPECTION, NORMOCEPHALIC - Eye Exam Eye Exam: Normal appearance - ENT Exam ENT Exam: Mucous Membranes Moist - Neck Exam Neck exam: Positive for: Normal Inspection - Respiratory Exam Respiratory Exam: Clear to Auscultation Bilateral - Cardiovascular Exam Cardiovascular Exam: REGULAR RHYTHM, +S1, +S2 - GI/Abdominal Exam GI & Abdominal Exam: Normal Bowel Sounds - Extremities Exam Extremities exam: Positive for: pedal edema - Back Exam Back exam: NORMAL INSPECTION - Neurological Exam Neurological exam: Alert, CN II-XII Intact, Oriented x3 - Psychiatric Exam Psychiatric exam: Normal Affect - Skin Skin Exam: Pallor Results - Vital Signs Recent Vital Signs: Last Vital Signs Temp 98.9 F 09/05/17 22:08 Pulse 99 H 09/05/17 22:08 Resp 19 09/05/17 22:08 BP 120/77 09/05/17 22:08 Pulse Ox 99 09/05/17 20:58 - Labs Result Diagrams: 09/05/17 20:57 09/05/17 19:00 Labs: Laboratory Results - last 24 hr 09/05/17 09/05/17 20:57 20:57 WBC 9.3 RBC 2.98 L Hgb 7.6 L Hct 23.5 L MCV 78.9 L MCH 25.5 MCHC 32.3 RDW 26.4 H Plt Count 268 MPV 7.6 Influenza Typ A,B (EIA) Negative for flu a/b Assessment & Plan - Assessment and Plan (Free Text) Assessment: Lung cancer, stage IV, on single agent chemo, gemcitabine. Did not tolerate doublet chemo. 2. Anemia :multifactorial- related to CKD, chemo related, chronic condition. 2 units of PRBC to be given. Lasix 20 mg IV after firat unit. Hb/HCT 1 hr after second unit. 3. CKD IV- improving. 4. Mild pulmonary edema; on lasix at home. 5. Hypokalemia : Kdur 20 given in ER. DC after 2 units of PRBC if Hb more than 8 gm/dl.
[2017-09-05] MEDS ORDERED: Albuterol-Ipratrop 3 mg / 0.5 (3 ml) UD IH PRN (22:27)
[2017-09-05 23:23] VITALS: BMI 30.2
[2017-09-06] MEDS: Albuterol-Ipratrop 3 mg / 0.5 (3 ml) UD IH SCH ×2 (01:44→08:43)
[2017-09-06 06:04] VITALS: O2SAT 99
[2017-09-06 07:21] LABS: BASO # 0.02 K/mm3 (0.0-2.0); BASO % 0.3 % (0.0-3.0); EOS # 0.2 (0.0-0.7); EOS % 2.1 % (1.5-5.0); GRAN # 5.77 (1.4-6.5); GRAN % 80.9 % (50.0-68.0); HEMOGLOBIN 9.5 g/dL (12.0-16.0); LYMPH % 14.3 % (22.0-35.0); MEAN CELL VOLUME 78.8 fl (80.0-105.0); MEAN CORPUSCULAR HEMOGLOBIN 25.5 pg (25.0-35.0); MEAN CORPUSCULAR HGB CONC 32.4 g/dl (31.0-37.0); MEAN PLATELET VOLUME 8.2 fl (7.0-11.0); MONO # 0.2 (0.1-0.6); MONO % 2.4 % (1.0-6.0); RBC 3.72 10^6/uL (3.5-6.1); RED CELL DISTRIBUTION WIDTH 23.8 % (11.5-14.5); WHITE BLOOD COUNT 7.1 10^3/ul (4.5-11.0)
[2017-09-06] MEDS ORDERED: Potassium Chloride 10 mEq ER Tab PO SCH (08:00)
--- NOTE | 2017-09-06 09:39 | RAD ---
HISTORY: sob, lung cancer hx COMPARISON: Portable chest 07/27/2017. TECHNIQUE: Chest PA and lateral FINDINGS: MediPort unchanged in position. LUNGS: Fibrotic changes are again appreciated diffusely, likely on a chronic basis, particularly at the left base posteriorly. Fibrosis or a chronic small pleural effusion blunts the left costophrenic sulcus with none identified at the right. No pneumothorax or cardiac size borderline enlarged. Chronic infiltrate or neoplasm in the retrocardiac left base is not completely excluded. No pulmonary derangement. PLEURA: No significant pleural effusion identified. No pneumothorax apparent. CARDIOVASCULAR: Normal. OSSEOUS STRUCTURES: No significant abnormalities. VISUALIZED UPPER ABDOMEN: Normal. OTHER FINDINGS: None. IMPRESSION: Stable but chronic interstitial pulmonary pulmonary disease relatively at the left base with no significant interval change compared to 07/27/2017. Chronic infiltrate or even neoplasm of the left base is not excluded.
[2017-09-06 10:20] LABS: ALB/GLOB RATIO 0.9 (1.1-1.8); ALBUMIN 3.6 g/dL (3.0-4.8); CALCIUM 9.3 mg/dL (8.4-10.5)
[2017-09-06] MEDS ORDERED: Potassium Chloride 20 mEq ER Tab PO ONE (10:34)
[2017-09-06 12:22] VITALS: BP 131/93; PULSE 97; RESP 19; TEMP 97.8
--- NOTE | 2017-09-06 23:35 | CARD ---
APPROVED REPORT EKG Measurement Heart [id number] <Conclusion> Sinus tachycardia Possible Left atrial enlargement Incomplete right bundle branch block Borderline ECG
--- NOTE | 2017-09-09 22:59 | DS ---
DISCHARGE DIAGNOSES: 1. Severe anemia. 2. Stage IV lung cancer. 4. Respiratory distress. HOSPITAL COURSE: Patient was admitted with severe anemia with hemoglobin of 7.5 g/dL. She received 2 units of blood transfusion. Chest x-ray showed mild vascular congestion. She received aggressive diuresis during the hospitalization. Shortness of breath improved. Her respiratory distress improved during hospitalization. She is being discharged in stable condition. DISCHARGE PHYSICAL EXAMINATION: GENERAL: Comfortable in bed, in no acute distress. VITAL SIGNS: Temperature 98.7, heart rate 80 per minute, blood pressure 110/70. HEENT: Pallor positive. NECK: No lymphadenopathy. CHEST: Air entry present and equal bilaterally. No added sounds. CARDIOVASCULAR: S1, S2 normal. No murmur. No gallop. ABDOMEN: Soft, nontender. No hepatosplenomegaly. EXTREMITIES: Bilateral leg edema. CENTRAL NERVOUS SYSTEM: Alert, oriented x3. No focal sensory or motor deficit. SKIN: No petechiae. No rash. CONDITION ON DISCHARGE: Stable. DISPOSITION: Discharged home. DISCHARGE MEDICATIONS: Resume home medications, plus Lasix 40 mg daily, K-Dur 40 mEq daily. DIET: Regular. FOLLOWUP: On Friday in the office. Time spent in preparing discharge, 60 minutes. Christine Wood MD
== END 2017-09-06 13:13 | disposition home or self-care (01) | DRG 812 ==
LOC: ED 18:21 → ERH 20:08 → 3RSO 21:18
PROVIDERS: ADMIT Internal Medicine Medical Oncology; ATTEND Internal Medicine Medical Oncology
PROC: 30233N1 Transfusion of Nonautologous Red Blood Cells into Peripheral Vein, Percutaneous Approach (ICD-10-PCS; principal; 2017-09-05)
DX: D64.81 Anemia due to antineoplastic chemotherapy (principal); J81.1 Chronic pulmonary edema; N18.4 Chronic kidney disease, stage 4 (severe); R06.03 Acute respiratory distress; Z99.81 Dependence on supplemental oxygen; C34.90 Malignant neoplasm of unspecified part of unspecified bronchus or lung; J43.9 Emphysema, unspecified; D63.1 Anemia in chronic kidney disease; E87.6 Hypokalemia; T45.1X5A Adverse effect of antineoplastic and immunosuppressive drugs, initial encounter; Z87.891 Personal history of nicotine dependence

== ENCOUNTER 2017-09-16 16:28 | Inpatient (IN) | payer OTHER ==
[2017-09-16 16:29] VITALS: BMI 30.2
[2017-09-16] MEDS ORDERED: Sodium Chloride 0.9% 1,000 ML IV STA (16:40)
--- NOTE | 2017-09-16 16:43 | ED PDOC ---
Arrival/HPI - General Chief Complaint: Fever Time Seen by Provider: 09/16/17 16:38 Historian: Patient - History of Present Illness Narrative History of Present Illness (Text): 09/16/17 16:41 pt p/w + sudden onset of chills/malaise/fatigue/fever since last night; pt states her temp today reached Tmax ~ 105; pt states no sweats, + slight tenderness over the right claudia-cath site, no skin discolorations noted; pt states no appetite, ? nausea, no vomiting, no new cp, + persistent sob, no palpitations, no abd pain, no numbness/tingling, no urinary/bowel changes; pt has been using her [place] oxygen regularly; pt states + felt lightheaded/dizzy; pt spoke to Dr Wood and was directed to ED immediately; pt denied fall/trauma/ sick contact, no travel; pt was last seen/treated in the hospital ~ > 1 week ago for severe anemia; pt last chemo was ~ 09/01?; pt is here for further eval pt's without other complaints + left lung cancer right claudia cath PCP: Dr Miranda oncology: Dr Wood Time/Duration: 24 hours Symptom Onset: Sudden Symptom Course: Worsening Quality: Throbbing Severity Level: 8, Severe Activities at Onset: Rest Context: Exertion, Home Past Medical History - Provider Review Nursing Documentation Reviewed: Yes - Travel History Have you recently traveled outside [place] w/in the past 3 mons?: No - Past History Past History: No Previous - Infectious Disease Hx of Infectious Diseases: None - Reproductive Menopause: Yes Currently : No - Past Medical History Past Medical History: No Previous - Cardiac Hx Cardiac Disorders: No Hx Pacemaker: No - Pulmonary Hx Respiratory Disorders: Yes Hx Chronic Obstructive Pulmonary Disease (COPD): Yes Hx Emphysema: Yes - Neurological Hx Neurological Disorder: No - HEENT Hx HEENT Disorder: No - Renal Hx Renal Disorder: Yes Hx Renal Failure: Yes - Endocrine/Metabolic Hx Endocrine Disorders: No - Hematological/Oncological Hx Blood Disorders: Yes Hx Anemia: Yes Hx Chemotherapy: Yes (last dose 07-21-17) - Integumentary Hx Dermatological Disorder: No - Musculoskeletal/Rheumatological Hx Musculoskeletal Disorders: No Hx Falls: No - Gastrointestinal Hx Gastrointestinal Disorders: No - Genitourinary/Gynecological Hx Genitourinary Disorders: No - Psychiatric Hx Psychophysiologic Disorder: No Hx Emotional Abuse: No Hx Physical Abuse: No Hx Substance Use: No - Surgical History Other/Comment: Breast reduction. R chest port - Anesthesia Hx Anesthesia: Yes Hx Anesthesia Reactions: No Hx Malignant Hyperthermia: No - Suicidal Assessment Feels Threatened In Home Enviroment: No Family/Social History - Physician Review Nursing Documentation Reviewed: Yes Family/Social History: No Known Family HX Smoking Status: Former Smoker Hx Alcohol Use: No Hx Substance Use: No Hx Substance Use Treatment: No Allergies/Home Meds Allergies/Adverse Reactions: Allergies No Known Allergies Allergy (Verified 09/16/17 16:31) Home Medications: Home Meds Medication Instructions Recorded Confirmed Furosemide [Lasix] 40 mg PO DAILY 09/06/17 09/16/17 Potassium Chloride [K-Dur 20 mEq 40 mg PO DAILY 09/06/17 09/16/17 ER Tab] Review of Systems - Review of Systems Constitutional: Fatigue, Fevers Eyes: Normal ENT: Normal Respiratory: SOB, Cough. absent: Sputum, Wheezing Cardiovascular: Chest Pain Gastrointestinal: Normal Genitourinary Female: Normal Musculoskeletal: Myalgias Skin: Normal Neurological: Dizziness Endocrine: Normal Hemo/Lymphatic: Normal Psychiatric: Normal Physical Exam Vital Signs Reviewed: Yes Vital Signs Temp Pulse Resp BP Pulse Ox 09/16/17 18:07 108 H 18 99/58 L 95 09/16/17 18:06 110 H 17 95 09/16/17 16:49 99.5 F 100 H 24 95/47 L 95 09/16/17 16:32 102.1 F H 126 H 22 105/70 80 L Temperature: Febrile Blood Pressure: Hypotensive Pulse: Tachycardic Respiratory Rate: Tachypneic Appearance: Positive for: Uncomfortable, Other (resting in bed, alert/awake, uncomfortable, mild distress due to pain/resp distress, cooperative) Pain Distress: Mild Mental Status: Positive for: Alert and Oriented X 3 - Systems Exam Head: Present: Atraumatic, Normocephalic Pupils: Present: PERRL, Other (no nystagmus, no photophobia, sclera anicteric; wearing eyeglasses) Extroacular Muscles: Present: EOMI Conjunctiva: Present: Normal Ears: Present: Normal Mouth: Present: Dry, Other (fair dentitions, no drooling/stridor, no exudate/ lesions, no dysphonia) Pharnyx: Present: Normal Nose (External): Present: Atraumatic Nose (Internal): Present: Normal Inspection Neck: Present: Normal Range of Motion, Trachea Midline, Other (no step off, no midline tenderness). No: Meningeal Signs, MIDLINE TENDERNESS Respiratory/Chest: Present: Tender to Palpation (over the right claudia-cath site) , Other (decr BS to left lung, no wheezing/rales/rhonchi noted, mild tachypenia , no accessory muscle use noted). No: Accessory Muscle Use, Wheezes Cardiovascular: Present: Normal S1, S2, Tachycardic. No: Murmurs Abdomen: Present: Normal Bowel Sounds, Other (well nourished female, no focal tenderness, no masses/rebound/guarding/rigidity, no gar's sign, no mcburney' s point tenderness) Back: Present: Normal Inspection. No: CVA Tenderness, Midline Tenderness Upper Extremity: Present: Normal Inspection, Normal ROM, NORMAL PULSES, Neurovascularly Intact. No: Edema, Deformity Lower Extremity: Present: Normal Inspection, NORMAL PULSES, Neurovascularly Intact, Other (strength 5-/5 b/l, no pitting edema/swelling). No: Normal ROM, Kenrick's Sign Neurological: Present: GCS=15, CN II-XII Intact, Speech Normal Skin: Present: Warm, Dry, Other (mild pallor, no lesions/rashes, cap refill ~ 1 sec) Psychiatric: Present: Alert, Oriented x 3 Medical Decision Making ED Course and Treatment: 09/16/17 16:41 Impression: fever i have consider all the differential diagnosis regarding pt's chief medical complaints/clinical findings, including but are not limited to: fever, r/o sepsis A/P: fever, left lung cancer - labs - iv - xray - cultures - observe - supportive care 09/16/17 18:[address] Miranda, who is aware of and in agreement with ED management and treatment. Accepts admission under his service and requests Dr. Wood for consult. 09/16/17 18:[address] Wood, made aware of ED visit and results. States she will see patient tomorrow in her office. 09/16/17 19:55 pt is resting in bed, not in distress pt is made aware of her medical results agrees with admission Re-evaluation Time: 19:30 Reassessment Condition: Improving,but remains with symptoms - Critical Care Critical Care Minutes: 45 minutes Critical Care Time: Excluding Proc Time Narrative Critical Care (Text): 09/16/17 20:01 critical care time: 45min, excluding procedure time, excluding time teaching residents/students/mid-level providers; including initial eval/diagnosis, diagnostic interpretation, re-eval, consultations, final disposition - Lab Interpretations Lab Results: 09/16/17 18:00 09/16/17 18:00 Lab Results 09/16/17 18:00: Blood Type O POSITIVE, Antibody Screen Negative, BBK History Checked Patient has bt 09/16/17 18:00: Sodium 128 L, Chloride 86 L, Potassium 2.9 L*, Carbon Dioxide 33 , Anion Gap 12, BUN 20, Creatinine 1.5 H, Est GFR ( Amer) 43, Est GFR ( Non-Af Amer) 35, Random Glucose 137 H, Calcium 9.4, Phosphorus 2.9, Magnesium 1.5 L, Total Bilirubin 1.7 H, AST 25, ALT 14, Alkaline Phosphatase 153 H, Troponin I 0.03 D, Total Protein 7.5, Albumin 3.7, Globulin 3.8, Albumin/ Globulin Ratio 1.0 L 09/16/17 18:00: pO2 105 H, VBG pH 7.51 H, VBG pCO2 42.0, VBG HCO3 33.5 H, VBG Total CO2 34.8 H, VBG O2 Sat (Calc) 99.7 H, VBG Base Excess 9.5 H, VBG Potassium 3.3 L, Sodium 128.0 L, Chloride 89.0 L, Glucose 147 H, Lactate 1.0, FiO2 21.0, Venous Blood Potassium 3.3 L 09/16/17 18:00: PT 16.7 H, INR 1.45 H, APTT 29.6 09/16/17 18:00: WBC 22.7 H D, RBC 3.70, Hgb 10.0 L, Hct 30.3 L, MCV 81.9 D, MCH 27.0, MCHC 33.0, RDW 25.3 H, Plt Count 42 L*, MPV 8.1, Gran % 91.8 H, Lymph % (Auto) 2.2 L, Desha % (Auto) 6.0, Eos % (Auto) 0.0 L, Baso % (Auto) 0.0, Gran # 20.79 H, Lymph # (Auto) 0.5 L, Desha # (Auto) 1.4 H, Eos # (Auto) 0.0, Baso # ( Auto) 0.01, Neutrophils % (Manual) Pending, Lymphocytes % (Manual) Pending, Monocytes % (Manual) Pending 09/16/17 17:10: Urine Color Yellow, Urine Appearance Sl cloudy, Urine pH 6.0, Ur Specific [place] 1.020, Urine Protein >=300 H, Urine Glucose (UA) 100 H, Urine Ketones 15 H, Urine Blood Moderate H, Urine Nitrate Negative, Urine Bilirubin Small H, Urine Urobilinogen 0.2, Ur Leukocyte Esterase Negative, Urine RBC Pending, Urine WBC Pending I have reviewed the lab results: Yes Interpretation: Abnormal lab values (elevated WBCs; decr sodium/k) - RAD Interpretation Narrative RAD Interpretations (Text): Report Date : 09/16/2017 18:21:36 Procedure: Chest xray Dictator : Bryson Mcgovern MD IMPRESSION: Persistent approximately stable incompletely visualize left lower lobe infiltrate. 09/16/17 20:03 CTA chest is pending Radiology Orders: 09/16/17 16:38 CHEST PORTABLE [RAD] Stat 09/16/17 16:57 ANGIO CHEST PE PROTOCOL [CT] Stat Crepe Sole Scourer: Radiologist - EKG Interpretation EKG Interpretation (Text): 09/16/17 20:03 Sinus tach at 115 bpm, normal axis, no ectopy, incomplete RBBB, no st changes, ABNL EKG; unchanged compare with old ekg 08/2017 Interpreted by ED Physician: Yes Type: 12 lead EKG Comparison: Similar to previous EKG - Medication Orders Current Medication Orders: Acetaminophen (Tylenol 325mg Tab) 975 mg PO ONCE PRN PRN Reason: Fever >100.4 F Potassium Chloride/Dextrose (Potassium Chl 20 Meq In D5w) 1,000 mls @ 100 mls/ hr IV .Q10H LUZ MARINA Discontinued Medications Sodium Chloride (Sodium Chloride 0.9%) 1,000 mls @ 999 mls/hr IV .Q1H1M STA Stop: 09/16/17 17:40 Last Admin: 09/16/17 16:50 Dose: 999 mls/hr eMAR Start Stop Document 09/16/17 16:50 SF (Rec: 09/16/17 17:[address] [id number]) Intravenous Solution Start Date 09/16/17 Start Time 16:50 End Date 09/16/17 End time 17:51 Total Infusion Time 61 Vancomycin HCl (Vancomycin 1gm) 1 gm in 250 mls @ 167 mls/hr IVPB STAT STA PRN Reason: Protocol Stop: 09/16/17 19:57 Piperacillin Sod/Tazobactam Sod (Zosyn 4.5 Gm In Ns 100ml) 4.5 gm in 100 mls @ 200 mls/hr IVPB STAT STA PRN Reason: Protocol Stop: 09/16/17 18:56 Potassium Chloride (Klor-Con 10) 20 meq PO STAT STA Stop: 09/16/17 19:59 Disposition/Present on Arrival - Present on Arrival Any Indicators Present on Arrival: No History of DVT/PE: No History of Uncontrolled Diabetes: No Urinary Catheter: No History of Decub. Ulcer: No History Surgical Site Infection Following: None - Disposition Have Diagnosis and Disposition been Completed?: Yes Diagnosis: High risk for sepsis, Lung cancer, Hypokalemia, Dehydration Disposition: HOSPITALIZED Disposition Time: 19:30 Patient Plan: Admission Patient Problems: Current Active Problems Problem Status Onset High risk for sepsis Acute Lung cancer Acute Condition: STABLE
[2017-09-16 18:15] LABS: VENOUS BLOOD GAS BASE EXCESS 9.5 mmol/L (0.0-2.0); VENOUS BLOOD GAS PO2 105 mm/Hg (30-55); VENOUS BLOOD PH 7.51 (7.32-7.43)
--- NOTE | 2017-09-16 18:23 | RAD ---
HISTORY: Sepsis Patient COMPARISON: 09/05/2017 FINDINGS: LUNGS: Persistent left lower lobe/ retrocardiac infiltrate. PLEURA: No significant pleural effusion identified, no pneumothorax apparent. CARDIOVASCULAR: No radiographic findings to suggest acute or significant cardiovascular disease. Venous access catheter in stable, satisfactory position. OSSEOUS STRUCTURES: No significant abnormalities. VISUALIZED UPPER ABDOMEN: Normal. OTHER FINDINGS: None. IMPRESSION: Persistent approximately stable incompletely visualize left lower lobe infiltrate.
[2017-09-16 18:25] LABS: BASO # 0.01 K/mm3 (0.0-2.0); GRAN # 20.79 (1.4-6.5); GRAN % 91.8 % (50.0-68.0); LYMPH # 0.5 (1.2-3.4); LYMPH % 2.2 % (22.0-35.0); MEAN CELL VOLUME 81.9 fl (80.0-105.0); MEAN PLATELET VOLUME 8.1 fl (7.0-11.0); MONO # 1.4 (0.1-0.6); PLATELET COUNT 42 10^3/uL (120.0-450.0); RED CELL DISTRIBUTION WIDTH 25.3 % (11.5-14.5); WHITE BLOOD COUNT 22.7 10^3/ul (4.5-11.0)
[2017-09-16] MEDS ORDERED: Piperacill/Tazo 4.5gm in NS 4.5 GM/100 ML BAG IVPB STA (18:27)
[2017-09-16 18:28] LABS: PROTHROMBIN TIME 16.7 SECONDS (9.4-12.5)
[2017-09-16] MEDS ORDERED: Vancomycin 1gm in NS 250ml 1 GM/250 ML BAG IVPB STA (18:28)
[2017-09-16 18:29] LABS: INR 1.45 (0.93-1.08); PARTIAL THROMBOPLASTIN TIME 29.6 Seconds (25.1-36.5)
[2017-09-16 18:37] LABS: TROPONIN I 0.03 ng/mL
[2017-09-16 19:03] LABS: ALBUMIN 3.7 g/dL (3.0-4.8); CALCIUM 9.4 mg/dL (8.4-10.5)
--- NOTE | 2017-09-16 19:10 | CARD ---
APPROVED REPORT EKG Measurement Heart [id number] <Conclusion> Sinus tachycardia Possible Left atrial enlargement Incomplete right bundle branch block Borderline ECG
[2017-09-16 19:39] LABS: URINE BILIRUBIN SMALL (NEGATIVE); URINE BLOOD MODERATE (NEGATIVE); URINE GLUCOSE (UA) 100 mg/dL (NEGATIVE); URINE LEUKOCYTE ESTERASE NEGATIVE Leu/uL (NEGATIVE); URINE PROTEIN >=300 mg/dL (<30 mg/dL); URINE UROBILINOGEN 0.2 E.U./dL (<1 E.U./dL)
[2017-09-16 19:44] LABS: URINE APPEARANCE SL CLOUDY (CLEAR); URINE COLOR YELLOW (YELLOW)
[2017-09-16] MEDS ORDERED: Potassium Chloride 10 mEq ER Tab PO STA (19:58)
[2017-09-16] MEDS ORDERED: Potassium Chl 20mEq & D5W 1,000 ML IV SCH (20:00)
[2017-09-16] MEDS ORDERED: Iodixanol 320 MG/ML 100 ML BOTTLE IV ONE (20:30)
[2017-09-16 20:37] LABS: URINE BACTERIA MANY (NEG)
[2017-09-16 21:16] LABS: BAND 3 % (0-2); LYMPHOCYTE 3 % (22.0-35.0); MONOCYTE 4 % (1.0-6.0); NEUTROPHIL 90 % (50.0-70.0)
[2017-09-16 21:17] LABS: ANISOCYTOSIS 1+; PLATELET ESTIMATE LOW (NORMAL)
[2017-09-16] MEDS: Potassium & Sodium Phosphate PO SCH (22:23)
[2017-09-17] MEDS ORDERED: Cefepime IV 2 gm in NS 2 GM/100 ML BAG IVPB SCH ×2 (00:17→10:00)
[2017-09-17] MEDS ORDERED: Sodium Chloride 0.9% 1,000 ML IV STA (00:39)
[2017-09-17 00:46] LABS: ARTERIAL BLOOD GAS HCO3 31.2 mmol/L (21-28); ARTERIAL BLOOD GAS O2 SAT 98.1 % (95-98); ARTERIAL BLOOD GAS PCO2 41 mm/Hg (35-45); ARTERIAL BLOOD GAS PH 7.49 (7.35-7.45); ARTERIAL BLOOD GAS TCO2 32.5 mmol.L (22-28)
[2017-09-17 00:51] LABS: BASO # 0.01 K/mm3 (0.0-2.0); BASO % 0.1 % (0.0-3.0); GRAN # 15.22 (1.4-6.5); GRAN % 91.1 % (50.0-68.0); HEMOGLOBIN 9.2 g/dL (12.0-16.0); LYMPH # 0.6 (1.2-3.4); LYMPH % 3.8 % (22.0-35.0); MEAN CELL VOLUME 81.7 fl (80.0-105.0); MEAN CORPUSCULAR HEMOGLOBIN 26.7 pg (25.0-35.0); MEAN CORPUSCULAR HGB CONC 32.6 g/dl (31.0-37.0); MEAN PLATELET VOLUME 7.7 fl (7.0-11.0); MONO # 0.8 (0.1-0.6); RBC 3.45 10^6/uL (3.5-6.1); RED CELL DISTRIBUTION WIDTH 25.2 % (11.5-14.5); WHITE BLOOD COUNT 16.7 10^3/ul (4.5-11.0)
--- NOTE | 2017-09-17 00:58 | CP.PCM.PN ---
<Pool Dumont - Last Filed: 09/17/17 00:59> Subjective - Date & Time of Evaluation Date of Evaluation: 09/17/17 Time of Evaluation: 00:57 - Subjective Subjective: Code Sepsis Note: Pt admitted due to high risk for sepsis, lung CA, hypokalemia, and dehydration recently transferred from ED to floor was found to have temperature of 104.6 F ( rectal) and HR 135 by nurse. WBC was 22.7. Code sepsis was called at 12:04 am. Pt was noted to be shivering with labored breathing. Objective - Vital Signs/Intake and Output Vital Signs (last 24 hours): Temp Pulse Resp BP Pulse Ox 104.6 F H 130 H 24 140/80 95 09/16/17 23:26 09/16/17 22:31 09/16/17 22:31 09/16/17 22:31 09/16/17 22:31 - Medications Medications: Current Medications Acetaminophen (Tylenol 325mg Tab) 975 mg PO ONCE PRN PRN Reason: Fever >100.4 F Last Admin: 09/16/17 23:26 Dose: 975 mg Potassium Chloride/Dextrose (Potassium Chl 20 Meq In D5w) 1,000 mls @ 100 mls/ hr IV .Q10H [facility] Last Admin: 09/16/17 22:38 Dose: 100 mls/hr Potassium Chloride 40 meq/ (Sodium Chloride) 1,020 mls @ 100 mls/hr IV .[id number] [facility] Stop: 09/17/17 18:08 Cefepime HCl (Maxipime 2gm) 2 gm in 100 mls @ 100 mls/hr IVPB Q24H [facility] PRN Reason: Protocol Stop: 09/22/17 00:18 Doxycycline Hyclate 100 mg/ (Sodium Chloride) 100 mls @ 100 mls/hr IVPB Q12 [facility] PRN Reason: Protocol Sodium Chloride (Sodium Chloride 0.9%) 1,000 mls @ 999 mls/hr IV .Q1H1M STA Stop: 09/17/17 01:39 Magnesium Oxide (Mag-Ox) 400 mg PO TID [facility] Potassium Phos/Sodium Phos (Neutra-Phos) 1 pkt PO BID [facility] Stop: 09/18/17 21:46 Last Admin: 09/16/17 22:23 Dose: Not Given - Labs Labs: PT 16.7 SECONDS (9.4-12.5) H 09/16/17 18:00 INR 1.45 (0.93-1.08) H 09/16/17 18:00 APTT 29.6 Seconds (25.1-36.5) 09/16/17 18:00 - Constitutional Appears: In Acute Distress - Head Exam Head Exam: NORMAL INSPECTION - Eye Exam Eye Exam: Normal appearance - ENT Exam ENT Exam: Mucous Membranes Moist - Neck Exam Neck Exam: Normal Inspection - Respiratory Exam Respiratory Exam: Rales (left mid to lower lung), Rhonchi. absent: Decreased Breath Sounds, Clear to Ausculation Bilateral, Wheezes, Respiratory Distress - Cardiovascular Exam Cardiovascular Exam: Tachycardia, +S1, +S2. absent: Gallop, Rubs, Murmur - GI/Abdominal Exam GI & Abdominal Exam: Soft. absent: Distended, Guarding, Tenderness, Rebound - Extremities Exam Extremities Exam: Normal Inspection - Back Exam Back Exam: NORMAL INSPECTION - Neurological Exam Neurological Exam: Alert, Awake, CN II-XII Intact, Oriented x3 - Psychiatric Exam Psychiatric exam: Normal Affect, Normal Mood - Skin Skin Exam: Dry, Intact, Normal Color, Warm Assessment and Plan - Assessment and Plan (Free Text) Assessment: 62 yo F found to be septic (febrile, tachycardic, leukocytosis). Plan: 1. Sepsis - CBC - CMP - Troponin stat and AM - EKG AM - ABG shock panel showed normal lactate - 1L NS bolus - Broad spectrum abx already ordered - Blood cultures already ordered - Reassess within 6 hours <Perla Chowdhury - Last Filed: 09/17/17 03:14> Objective - Vital Signs/Intake and Output Vital Signs (last 24 hours): Temp Pulse Resp BP Pulse Ox 104.6 F H 130 H 24 140/80 95 09/16/17 23:26 09/16/17 22:31 09/16/17 22:31 09/16/17 22:31 09/16/17 22:31 - Medications Medications: Current Medications Acetaminophen (Tylenol 325mg Tab) 975 mg PO ONCE PRN PRN Reason: Fever >100.4 F Last Admin: 09/16/17 23:26 Dose: 975 mg Potassium Chloride/Dextrose (Potassium Chl 20 Meq In D5w) 1,000 mls @ 100 mls/ hr IV .Q10H [facility] Last Admin: 09/16/17 22:38 Dose: 100 mls/hr Potassium Chloride 40 meq/ (Sodium Chloride) 1,020 mls @ 100 mls/hr IV .[id number] [facility] Stop: 09/17/17 18:08 Cefepime HCl (Maxipime 2gm) 2 gm in 100 mls @ 100 mls/hr IVPB Q24H [facility] PRN Reason: Protocol Stop: 09/22/17 00:18 Doxycycline Hyclate 100 mg/ (Sodium Chloride) 100 mls @ 100 mls/hr IVPB Q12 [facility] PRN Reason: Protocol Magnesium Oxide (Mag-Ox) 400 mg PO TID [facility] Oseltamivir Phosphate (Tamiflu) 30 mg PO DAILY [facility] PRN Reason: Protocol Potassium Phos/Sodium Phos (Neutra-Phos) 1 pkt PO BID [facility] Stop: 09/18/17 21:46 Last Admin: 09/16/17 22:23 Dose: Not Given - Labs Labs: 09/17/17 00:40 09/17/17 00:40 PT 16.7 SECONDS (9.4-12.5) H 09/16/17 18:00 INR 1.45 (0.93-1.08) H 09/16/17 18:00 APTT 29.6 Seconds (25.1-36.5) 09/16/17 18:00 Attending/Attestation - Attestation I have personally seen and examined this patient.: Yes I have fully participated in the care of the patient.: Yes I have reviewed all pertinent clinical information, including history, physical exam and plan: Yes Notes (Text): 09/17/17 03:09 Addendum:Pt has a Portacath in the R upper chest wall in the infraclavicular region.The site is very tender to touch and is slightly swollen. Agree with rest of documentation .Appropiate orders placed.
[2017-09-17 01:01] LABS: CALCIUM 8.8 mg/dL (8.4-10.5)
[2017-09-17 01:05] LABS: PLATELET COUNT 29 10^3/uL (120.0-450.0)
[2017-09-17 01:16] LABS: TROPONIN I 0.04 ng/mL
--- NOTE | 2017-09-17 02:26 | CP.PCM.CON ---
<Smitha Alexander - Last Filed: 09/17/17 02:26> History of Present Illness - History of Present Illness History of Present Illness: PGY-2 ICU consult note 62 yo female with pmh of COPD, emphysema, cristela failure, anemia, lung ca presented to ED with fever and chills. She was found to have tenderness over the right port a-cath site. She was admitted for high risk of sepsis, dehydration, hypokalemia. Overnight patient found to have temperature of 104.6 with tachycardia. ICU was consulted for sepsis. Patient denies any pain, vomiting, chest pain. Patient is on her NC oxygen regularly. PMH: COPD, emphysema, renal failure, anemia, lung ca PSH: breast reduction, right chest port social history: former smoker, no alcohol use, no illicit drug use allergy: NKDA Review of Systems - Review of Systems All systems: reviewed and no additional remarkable complaints except Past Patient History - Infectious Disease Hx of Infectious Diseases: None - Past Social History Smoking Status: Former Smoker - CARDIAC Hx Cardiac Disorders: No Hx Pacemaker: No - PULMONARY Hx Respiratory Disorders: Yes Hx Chronic Obstructive Pulmonary Disease (COPD): Yes Hx Emphysema: Yes - NEUROLOGICAL Hx Neurological Disorder: No - HEENT Hx HEENT Problems: No - RENAL Hx Chronic Kidney Disease: Yes Hx Renal Failure: Yes - ENDOCRINE/METABOLIC Hx Endocrine Disorders: No - HEMATOLOGICAL/ONCOLOGICAL Hx Blood Disorders: Yes Hx Anemia: Yes Hx Chemotherapy: Yes (last dose 07-21-17) - INTEGUMENTARY Hx Dermatological Problems: No - MUSCULOSKELETAL/RHEUMATOLOGICAL Hx Musculoskeletal Disorders: No Hx Falls: No - GASTROINTESTINAL Hx Gastrointestinal Disorders: No - GENITOURINARY/GYNECOLOGICAL Hx Genitourinary Disorders: No - PSYCHIATRIC Hx Psychophysiologic Disorder: No Hx Emotional Abuse: No Hx Physical Abuse: No Hx Substance Use: No - SURGICAL HISTORY Other/Comment: Breast reduction. R chest port - ANESTHESIA Hx Anesthesia: Yes Hx Anesthesia Reactions: No Hx Malignant Hyperthermia: No Meds Allergies/Adverse Reactions: Allergies Allergy/AdvReac Type Severity Reaction Status Date / Time No Known Allergies Allergy Verified 09/16/17 16:31 - Medications Medications: Current Medications Acetaminophen (Tylenol 325mg Tab) 975 mg PO ONCE PRN PRN Reason: Fever >100.4 F Last Admin: 09/16/17 23:26 Dose: 975 mg Potassium Chloride/Dextrose (Potassium Chl 20 Meq In D5w) 1,000 mls @ 100 mls/ hr IV .Q10H [facility] Last Admin: 09/16/17 22:38 Dose: 100 mls/hr Potassium Chloride 40 meq/ (Sodium Chloride) 1,020 mls @ 100 mls/hr IV .[id number] [facility] Stop: 09/17/17 18:08 Cefepime HCl (Maxipime 2gm) 2 gm in 100 mls @ 100 mls/hr IVPB Q24H [facility] PRN Reason: Protocol Stop: 09/22/17 00:18 Doxycycline Hyclate 100 mg/ (Sodium Chloride) 100 mls @ 100 mls/hr IVPB Q12 [facility] PRN Reason: Protocol Magnesium Oxide (Mag-Ox) 400 mg PO TID [facility] Oseltamivir Phosphate (Tamiflu) 30 mg PO DAILY [facility] PRN Reason: Protocol Potassium Phos/Sodium Phos (Neutra-Phos) 1 pkt PO BID [facility] Stop: 09/18/17 21:46 Last Admin: 09/16/17 22:23 Dose: Not Given Physical Exam - Constitutional Appears: No Acute Distress - Head Exam Head Exam: NORMAL INSPECTION, NORMOCEPHALIC - Eye Exam Eye Exam: Normal appearance - ENT Exam ENT Exam: Mucous Membranes Moist - Respiratory Exam Respiratory Exam: Rhonchi, NORMAL BREATHING PATTERN. absent: Decreased Breath Sounds, Respiratory Distress - Cardiovascular Exam Cardiovascular Exam: Tachycardia, +S1, +S2. absent: Diastolic murmur, Systolic Murmur - GI/Abdominal Exam GI & Abdominal Exam: Normal Bowel Sounds, Soft. absent: Distended, Firm, Tenderness - Neurological Exam Neurological exam: Alert, Oriented x3 - Skin Skin Exam: Diaphoretic, Intact, Normal Color Additional comments: tenderness around port a cath site on right chest wall Results - Vital Signs Recent Vital Signs: Last Vital Signs Temp 104.6 F H 09/16/17 23:26 Pulse 130 H 09/16/17 22:31 Resp 24 09/16/17 22:31 BP 140/80 09/16/17 22:31 Pulse Ox 95 09/16/17 22:31 - Labs Result Diagrams: 09/17/17 00:40 09/17/17 00:40 Labs: Laboratory Results - last 24 hr 09/17/17 09/17/17 09/17/17 00:36 00:40 00:40 WBC 16.7 H D RBC 3.45 L Hgb 9.2 L Hct 28.2 L MCV 81.7 MCH 26.7 MCHC 32.6 RDW 25.2 H Plt Count 29 L* MPV 7.7 Gran % 91.1 H Lymph % (Auto) 3.8 L Obion % (Auto) 5.0 Eos % (Auto) 0.0 L Baso % (Auto) 0.1 Gran # 15.22 H Lymph # (Auto) 0.6 L [place] # (Auto) 0.8 H Eos # (Auto) 0.0 Baso # (Auto) 0.01 pCO2 41 pO2 74.0 L HCO3 31.2 H ABG pH 7.49 H ABG Total CO2 32.5 H ABG O2 Saturation 98.1 H ABG Base Excess 7.2 H ABG Potassium 1.9 L* Sodium 131.0 L 128 L Chloride 95.0 L 88 L Glucose 166 H Lactate 0.8 FiO2 32.0 Potassium 2.7 L* Carbon Dioxide 32 Anion Gap 11 BUN 19 Creatinine 1.7 H Est GFR ( Amer) 37 Est GFR (Non-Af Amer) 30 Random Glucose 165 H Calcium 8.8 Troponin I 0.04 D Arterial Blood Potassium 1.9 L* Assessment & Plan - Assessment and Plan (Free Text) Assessment: 62 yo female with pmh of COPD, emphysema, cristela failure, anemia, lung ca presented for sepsis most likely due to infected port a cath. Blood pressure is stable and responding to IVF, continue aggressive IV hydration, broad spectrum antibiotics, removal of port in AM, and aggressive cooling measure. <Shawna AMBROSIO,Italo - Last Filed: 09/20/17 07:58> Meds - Medications Medications: Current Medications Acetaminophen (Tylenol 325mg Tab) 975 mg PO ONCE PRN PRN Reason: Fever >100.4 F Last Admin: 09/17/17 08:10 Dose: 975 mg Albuterol/Ipratropium (Duoneb 3 Mg/0.5 Mg (3 Ml) Ud) 3 ml IH [id number] [facility]INA Last Admin: 09/20/17 03:25 Dose: Not Given Albuterol/Ipratropium (Duoneb 3 Mg/0.5 Mg (3 Ml) Ud) 3 ml IH Q2H PRN PRN Reason: Shortness of Breath Last Admin: 09/17/17 09:07 Dose: 3 ml Budesonide (Pulmicort Respules) 0.5 mg IH [id number] [facility] Last Admin: 09/19/17 22:22 Dose: 0.5 mg Enoxaparin Sodium (Lovenox) 40 mg SC DAILY [facility] PRN Reason: Protocol Last Admin: 09/18/17 16:02 Dose: Not Given Doxycycline Hyclate 100 mg/ (Sodium Chloride) 100 mls @ 100 mls/hr IVPB Q12 [facility] PRN Reason: Protocol Last Admin: 09/20/17 00:00 Dose: 100 mls/hr Meropenem (Merrem Iv 1 Gm Premix) 50 mls @ 100 mls/hr IVPB Q12 [facility] PRN Reason: Protocol Last Admin: 09/19/17 22:11 Dose: 100 mls/hr Linezolid (Zyvox 600mg/300ml D5w) 600 mg in 300 mls @ 200 mls/hr IVPB Q12 [facility] PRN Reason: Protocol Stop: 09/24/17 13:46 Last Admin: 09/18/17 09:27 Dose: 200 mls/hr Cefazolin Sodium 2 gm/ Sodium (Chloride) 100 mls @ 200 mls/hr IVPB Q8 [facility] PRN Reason: Protocol Last Admin: 09/20/17 06:39 Dose: 200 mls/hr Magnesium Oxide (Mag-Ox) 400 mg PO TID [facility] Last Admin: 09/19/17 22:12 Dose: 400 mg Methylprednisolone (Solu-Medrol) 30 mg IVP Q12 [facility] Last Admin: 09/19/17 22:05 Dose: 30 mg Ondansetron HCl (Zofran Inj) 4 mg IVP ONCE PRN PRN Reason: Nausea/Vomiting Oseltamivir Phosphate (Tamiflu) 30 mg PO DAILY [facility] PRN Reason: Protocol Last Admin: 09/19/17 09:49 Dose: 30 mg Results - Vital Signs Recent Vital Signs: Last Vital Signs Temp 98.3 F 09/20/17 06:00 Pulse 109 H 09/20/17 06:00 Resp 20 09/20/17 06:00 BP 125/85 09/20/17 06:00 Pulse Ox 92 L 09/20/17 06:00 - Labs Result Diagrams: 09/20/17 07:00 09/20/17 07:00 Labs: Laboratory Results - last 24 hr 09/20/17 09/20/17 07:00 07:00 WBC 9.4 D RBC 3.63 Hgb 9.5 L Hct 30.4 L MCV 83.7 MCH 26.2 MCHC 31.3 RDW 25.9 H Plt Count 138 MPV 8.4 Gran % 79.0 H Lymph % (Auto) 13.0 L Ob[place] % (Auto) 7.9 H Eos % (Auto) 0.0 L Baso % (Auto) 0.1 Gran # 7.44 H Lymph # (Auto) 1.2 [place]ion # (Auto) 0.7 H Eos # (Auto) 0.0 Baso # (Auto) 0.01 Sodium 134 Potassium 3.9 Chloride 94 L Carbon Dioxide 37 H Anion Gap 8 L BUN 23 H Creatinine 1.3 H Est GFR ( Amer) 50 Est GFR (Non-Af Amer) 42 Random Glucose 147 H Calcium 9.7 Total Bilirubin 0.4 AST 41 H D ALT 22 Alkaline Phosphatase 121 Total Protein 6.6 Albumin 3.3 Globulin 3.4 Albumin/Globulin Ratio 1.0 L Attending/Attestation - Attestation I have personally seen and examined this patient.: Yes I have fully participated in the care of the patient.: Yes I have reviewed all pertinent clinical information: Yes Notes (Text): -I agree with the above ICU consult note completed by the resident physician with the following additions and/or changes: -The patient is a 62 year old woman with pmh of COPD, emphysema, renal failure, anemia and lung ca, admitted with sepsis (likely due to infected port-a-cath), whose blood pressures improved after receiving IVF boluses and therefore doesn t require ICU level of care at this time. Recommend continued empiric IV antibiotics, port-a-cath removal, PRN Tylenol and cooling measures for fevers and aggressive IVFs. If patients condition worsens then please re-consult. Thanks. Critical Care Time Spent: 30-45 minutes
[2017-09-17 05:03] LABS: VENOUS BLOOD GAS BASE EXCESS 5.3 mmol/L (0.0-2.0); VENOUS BLOOD GAS PO2 51 mm/Hg (30-55); VENOUS BLOOD PH 7.33 (7.32-7.43)
--- NOTE | 2017-09-17 05:25 | PCM.SEPTIC ---
<Pool Dumont - Last Filed: 09/17/17 05:23> Sepsis Progress Note - Reassessment Type Date of Evaluation: 09/17/17 Time of Evaluation: 05:23 Reassessment Type: Non-invasive reassessment - Non Invasive Reassessment Were the most recent vital sign reviewed: Yes Vital Sign (Latest): Temp Pulse Resp BP Pulse Ox 104.6 F H 94 H 20 127/67 95 09/17/17 03:21 09/17/17 03:21 09/17/17 03:21 09/17/17 03:21 09/16/17 22:31 Cardiovascular: Yes: Regular Rate, Rhythm. No: Chest Non Tender (port a cath site tender to palpation), Edema, Gallop, JVD, Murmur, Ectopy, Friction Rub, Irregularly Irregular Respiratory: Yes: Rales (left mid to lower lung), Rhonchi. No: Stridor, Wheezing, Respiratory Distress, Plerual Rub Capillary Refill: Normal (Less than 2 sec) Pulses: Normal Radial, Normal Dorsalis Pedis, Normal Posterior Tibialis Skin: Normal Color, Warm, Dry - Invasive Reassessment (complete 2 of 4) Was a Central Venous Pressure Measurement obtained within 6 Hours after the presentation of septic shock: No Was a central venous oxygen measurement obtained within 6 hours after the presentation of septic shock: No Was a bedside cardiovascular ultrasound performed within 6 hours after the presentation of septic shock: No Was a passive leg raise performed or was a fluid challenge performed within 6 hrs of the initial fluid bolus: No Passive Leg Raise Result: Not Applicable Fluid Challenge performed: No <Perla Chowdhury - Last Filed: 09/17/17 11:14> Sepsis Progress Note - Non Invasive Reassessment Vital Sign (Latest): Temp Pulse Resp BP Pulse Ox 99.1 F 88 18 84/56 L 95 09/17/17 05:38 09/17/17 05:38 09/17/17 05:38 09/17/17 05:38 09/17/17 05:38 Attending/Attestation - Attestation I have personally seen and examined this patient.: Yes I have fully participated in the care of the patient.: Yes I have reviewed all pertinent clinical information, including history, physical exam and plan: Yes Notes (Text): 09/17/17 11:13 Agree with documentation.
[2017-09-17 06:10] LABS: HEMOGLOBIN 8.9 g/dL (12.0-16.0); MEAN CELL VOLUME 82.4 fl (80.0-105.0); MEAN CORPUSCULAR HEMOGLOBIN 26.5 pg (25.0-35.0); MEAN CORPUSCULAR HGB CONC 32.1 g/dl (31.0-37.0); MEAN PLATELET VOLUME 8.1 fl (7.0-11.0); RBC 3.36 10^6/uL (3.5-6.1); RED CELL DISTRIBUTION WIDTH 25.9 % (11.5-14.5); WHITE BLOOD COUNT 13.3 10^3/ul (4.5-11.0)
[2017-09-17 06:29] LABS: ALB/GLOB RATIO 0.9 (1.1-1.8); ALBUMIN 2.8 g/dL (3.0-4.8); CALCIUM 8.6 mg/dL (8.4-10.5)
[2017-09-17 06:40] LABS: TROPONIN I 0.03 ng/mL
[2017-09-17] MEDS ORDERED: Potassium Chloride 20 mEq ER Tab PO ONE (07:15)
[2017-09-17] MEDS ORDERED: Darbepoetin Alfa 100 mcg/ml Inj SC ONE (07:50)
[2017-09-17 08:34] LABS: ARTERIAL BLOOD GAS HCO3 26.6 mmol/L (21-28); ARTERIAL BLOOD GAS HEMOGLOBIN 10.3 g/dL (11.7-17.4); ARTERIAL BLOOD GAS O2 CONTENT 11.5 ML/dl (15-23); ARTERIAL BLOOD GAS O2 SAT 82.3 % (95-98); ARTERIAL BLOOD GAS PCO2 43 mm/Hg (35-45); ARTERIAL BLOOD GAS TCO2 27.9 mmol.L (22-28)
[2017-09-17] MEDS ORDERED: Albuterol-Ipratrop 3 mg / 0.5 (3 ml) UD IH PRN (08:35)
[2017-09-17] MEDS ORDERED: MethylPREDNISolone 40 mg Vial IVP SCH (08:45)
[2017-09-17] MEDS: Potassium & Sodium Phosphate PO SCH ×2 (09:51→17:55)
[2017-09-17] MEDS: Magnesium Oxide 400 mg Tab UD PO SCH ×3 (09:52→17:55)
[2017-09-17] MEDS: Meropenem IV 1 gm in NS 50 ML IVPB SCH ×2 (09:52→21:42)
--- NOTE | 2017-09-17 09:59 | RAD ---
HISTORY: follow up COMPARISON: 09/16/2017 FINDINGS: LUNGS: No active pulmonary disease. PLEURA: No significant pleural effusion identified, no pneumothorax apparent. CARDIOVASCULAR: Mild cardiomegaly. Moderate vascular and interstitial congestion which has slightly increased OSSEOUS STRUCTURES: No significant abnormalities. VISUALIZED UPPER ABDOMEN: Normal. OTHER FINDINGS: None. IMPRESSION: Moderate vascular and interstitial congestion which has slightly increased
[2017-09-17] MEDS: Oseltamivir 6 MG/ML PO SCH ×2 (10:34→17:54)
--- NOTE | 2017-09-17 11:38 | HP ---
CHIEF COMPLAINT AND HISTORY OF PRESENT ILLNESS: This is a 62-year-old female who is coming in to the hospital with complaint of shortness of breath. The patient was having a fever. She has a past medical history of COPD, emphysema, lung CA. She says that she has been more short of breath. She does have a cough, it is mostly dry. She has lung cancer stage IV. She has received gemcitabine in the past. The patient has a port in place. She feels weak and tired. She denies any swelling of the leg. She has no abdominal pain. No chest pain. No headaches or dizziness. REVIEW OF SYMPTOMS: All other review of symptoms are within normal limits except that was mentioned. PAST MEDICAL HISTORY: 1. [id number] lung cancer of the lung. 2. COPD. 3. Healthcare-associated pneumonia. 4. Postobstructive pneumonitis. 5. Mediastinal adenopathy. 6. Left adrenal mass 2.2 cm. 7. Left pleural effusion. 8. Acute kidney injury. PAST SURGICAL HISTORY: Port placement. FAMILY HISTORY: Noncontributory. The patient has a father who has diabetes. Mother had hypertension. Sister, leukemia. HOME MEDICATIONS: Have been reviewed. ALLERGIES: NO KNOWN DRUG ALLERGIES. PHYSICAL EXAMINATION: VITAL SIGNS: Temperature of 102, pulse of 109, blood pressure is 107/69, respirations are 18-30, O2 saturation is 95%. GENERAL: The patient lying in bed, uncomfortable, and in no acute distress. HEENT: Atraumatic and normocephalic. Anicteric sclerae. Moist mucosa. Thoreau conjunctivae. No oral lesions. NECK: No JVD, anterior and posterior adenopathy, thyromegaly, or bruits. CARDIOVASCULAR: S1 and S2 regular. No murmur, rubs, or gallop. LUNGS: Bilateral good air entry. Bilateral rhonchi. No rales. No wheezing. ABDOMEN: Bowel sounds are positive. Soft, nontender and nondistended. No hepatosplenomegaly. No rebound and no guarding EXTREMITIES: No cyanosis, clubbing, or edema. NEUROLOGIC: No facial asymmetry. Tongue is midline. No uvula deviation. Power is 5/5 upper extremity and lower extremity. Sensation intact in upper extremity and lower extremity. PSYCHIATRIC: She is awake, alert and oriented x3. No anxiety or depression. She has normal affect. GENITOURINARY: No CVA tenderness. VASCULAR: 2+ pulses in the carotid pulses and pedal pulses. SKIN: No erythema or nodules SPINE: Shows normal curvature. LABORATORY DATA: White count of 22.7, hemoglobin is 10, platelet count is 42. INR is 1.45. Chemistry shows a sodium 128, potassium is 2.9, creatinine is 1.5, troponin is 0.03. Urine shows blood that is moderate, nitrites are negative, bilirubin is small. Influenza is negative. EKG done shows sinus tachycardia with a heart rate of 117, QTc is 488. Chest x-ray done shows persistent stable incomplete visualization of left lower lobe infiltrate. ASSESSMENT: 1. Sepsis. 2. Thrombocytopenia. 3. Hypokalemia. 4. Hyponatremia. 5. Chronic obstructive pulmonary disease. PLAN: The patient is not comfortable, is going to be admitted to the ICU. She is more short of breath. She was given IV fluids. Her sodium and potassium are better. We will continue with the potassium replacement. She is on doxycycline for antibiotics. She is on magnesium replacement. The patient has hypomagnesemia. She is on steroids. She was going to be seen by Dr. Mueller. I asked him to being on consult. The patient is going to be followed by Dr. Wood for the lung cancer. The patient is going to be seen by Dr. Pichardo. I spoke to him from Infectious Disease. Overall prognosis is guarded. She is a full code. Alejandro Miranda MD
[2017-09-17] MEDS: Albuterol-Ipratrop 3 mg / 0.5 (3 ml) UD IH SCH ×2 (13:24→19:13)
--- NOTE | 2017-09-17 13:35 | CP.PCM.PN ---
Subjective - Date & Time of Evaluation Date of Evaluation: 09/17/17 Time of Evaluation: 08:00 - Subjective Subjective: Patient is 62 yo female with pmh of COPD, emphysema, cristela failure, anemia, lung cancer, on chemo radiation, admitted to floor, with fever, chills. This morning patient became hypoxic 77% on 2LNC, sob, placed on High flow O2, 50% 50LPM, with improvement in oxygenation sat 98%, comfortable. Currently afebrile , HD stable, comfortable, eating lunch. Objective - Vital Signs/Intake and Output Vital Signs (last 24 hours): Temp Pulse Resp BP Pulse Ox 102 F H 95 H 23 79/51 L 95 09/17/17 08:10 09/17/17 12:20 09/17/17 12:20 09/17/17 12:15 09/17/17 12:20 Intake and Output: 09/17/17 09/17/17 06:59 18:59 Intake Total 2640 Output Total 350 Balance 2290 - Medications Medications: Current Medications Acetaminophen (Tylenol 325mg Tab) 975 mg PO ONCE PRN PRN Reason: Fever >100.4 F Last Admin: 09/17/17 08:10 Dose: 975 mg Albuterol/Ipratropium (Duoneb 3 Mg/0.5 Mg (3 Ml) Ud) 3 ml IH [id number] [facility] Albuterol/Ipratropium (Duoneb 3 Mg/0.5 Mg (3 Ml) Ud) 3 ml IH Q2H PRN PRN Reason: Shortness of Breath Last Admin: 09/17/17 09:07 Dose: 3 ml Budesonide (Pulmicort Respules) 0.5 mg IH [id number] [facility] Potassium Chloride 40 meq/ (Sodium Chloride) 1,020 mls @ 100 mls/hr IV .[id number] [facility] Stop: 09/17/17 18:08 Last Admin: 09/17/17 04:26 Dose: 100 mls/hr Doxycycline Hyclate 100 mg/ (Sodium Chloride) 100 mls @ 100 mls/hr IVPB Q12 [facility] PRN Reason: Protocol Last Admin: 09/17/17 10:34 Dose: 100 mls/hr Meropenem (Merrem Iv 1 Gm Premix) 50 mls @ 100 mls/hr IVPB Q12 [facility] PRN Reason: Protocol Last Admin: 09/17/17 09:52 Dose: 100 mls/hr Magnesium Oxide (Mag-Ox) 400 mg PO TID [facility] Last Admin: 09/17/17 09:52 Dose: 400 mg Methylprednisolone (Solu-Medrol) 40 mg IVP Q8H [facility] Last Admin: 09/17/17 09:51 Dose: 40 mg Oseltamivir Phosphate (Tamiflu Susp) 30 mg PO BID [facility] PRN Reason: Protocol Last Admin: 09/17/17 10:34 Dose: 30 mg Potassium Phos/Sodium Phos (Neutra-Phos) 1 pkt PO BID [facility] Stop: 09/18/17 21:46 Last Admin: 09/17/17 09:51 Dose: 1 pkt - Labs Labs: 09/17/17 05:30 09/17/17 05:30 PT 16.7 SECONDS (9.4-12.5) H 09/16/17 18:00 INR 1.45 (0.93-1.08) H 09/16/17 18:00 APTT 29.6 Seconds (25.1-36.5) 09/16/17 18:00 - Constitutional Appears: Non-toxic, No Acute Distress - Eye Exam Eye Exam: Normal appearance - ENT Exam ENT Exam: Mucous Membranes Moist - Respiratory Exam Respiratory Exam: Rhonchi, NORMAL BREATHING PATTERN - Cardiovascular Exam Cardiovascular Exam: REGULAR RHYTHM, +S1, +S2 - GI/Abdominal Exam GI & Abdominal Exam: Soft, Normal Bowel Sounds - Extremities Exam Extremities Exam: Full ROM, Normal Inspection - Neurological Exam Neurological Exam: Alert, Awake, Oriented x3 Neuro motor strength exam: Left Upper Extremity: 5, Right Upper Extremity: 5, Left Lower Extremity: 5, Right Lower Extremity: 5 Assessment and Plan - Assessment and Plan (Free Text) Assessment: 62yo female with hypoxic resp failure, FLU FLU Hypoxic Resp Failure SOB Lung Ca Recommend: - high flow o2 as tolerated - duonebs q6hr - Solumedrol 40mg IV q8hr - Procal, BCx, UCx - Tamiflu - Follow up ID, abx as per ID - Follow up Pulm - BP control - monitor HH - FS control - GI ppx - DVT ppx - monitor in MICU
--- NOTE | 2017-09-17 13:53 | CP.PCM.CON ---
History of Present Illness - History of Present Illness History of Present Illness: 62 year old female with PMH of extensive smoking history, lung CA diagnosed in April 2017, S/P Sepsis due to left lower HCAP, probably post-obstructive pneumonitis in 2016 came in to [facility] [place] complaining of worsening shortness of breath, cough and fevers for the past 2 days, associated with some pain along the right sided port-a-cath. She was initially on telemetry but the patient continued to be hypoxic and is now transferred to ICU for closer observation and is now placed on high flow oxygen. She also continues to be febrile on the floor and ICU. She has generalized weakness, no headache or dizziness, no sore throat, no rhinorrhea, no chest pain, no abdominal pain, no diarrhea, no dysuria. Infectious Diseases consult is requested to further evaluate and manage. Review of Systems - Review of Systems All systems: reviewed and no additional remarkable complaints except (as per HPI ) Past Patient History - Infectious Disease Hx of Infectious Diseases: None - Past Social History Smoking Status: Former Smoker - CARDIAC Hx Cardiac Disorders: No Hx Pacemaker: No - PULMONARY Hx Respiratory Disorders: Yes Hx Chronic Obstructive Pulmonary Disease (COPD): Yes Hx Emphysema: Yes - NEUROLOGICAL Hx Neurological Disorder: No - HEENT Hx HEENT Problems: No - RENAL Hx Chronic Kidney Disease: Yes Hx Renal Failure: Yes - ENDOCRINE/METABOLIC Hx Endocrine Disorders: No - HEMATOLOGICAL/ONCOLOGICAL Hx Blood Disorders: Yes Hx Anemia: Yes Hx Chemotherapy: Yes (last dose 07-21-17) - INTEGUMENTARY Hx Dermatological Problems: No - MUSCULOSKELETAL/RHEUMATOLOGICAL Hx Musculoskeletal Disorders: No Hx Falls: No - GASTROINTESTINAL Hx Gastrointestinal Disorders: No - GENITOURINARY/GYNECOLOGICAL Hx Genitourinary Disorders: No - PSYCHIATRIC Hx Psychophysiologic Disorder: No Hx Emotional Abuse: No Hx Physical Abuse: No Hx Substance Use: No - SURGICAL HISTORY Other/Comment: Breast reduction. R chest port - ANESTHESIA Hx Anesthesia: Yes Hx Anesthesia Reactions: No Hx Malignant Hyperthermia: No Meds Allergies/Adverse Reactions: Allergies Allergy/AdvReac Type Severity Reaction Status Date / Time No Known Allergies Allergy Verified 09/16/17 16:31 - Medications Medications: Current Medications Acetaminophen (Tylenol 325mg Tab) 975 mg PO ONCE PRN PRN Reason: Fever >100.4 F Last Admin: 09/16/17 23:26 Dose: 975 mg Potassium Chloride/Dextrose (Potassium Chl 20 Meq In D5w) 1,000 mls @ 100 mls/ hr IV .Q10H [facility] Last Admin: 09/16/17 22:38 Dose: 100 mls/hr Potassium Chloride 40 meq/ (Sodium Chloride) 1,020 mls @ 100 mls/hr IV .[id number] [facility] Stop: 09/17/17 18:08 Cefepime HCl (Maxipime 2gm) 2 gm in 100 mls @ 100 mls/hr IVPB Q12 LUZ MARINA PRN Reason: Protocol Stop: 09/22/17 10:01 Doxycycline Hyclate 100 mg/ (Sodium Chloride) 100 mls @ 100 mls/hr IVPB Q12 LUZ MARINA PRN Reason: Protocol Magnesium Oxide (Mag-Ox) 400 mg PO TID [facility] Potassium Phos/Sodium Phos (Neutra-Phos) 1 pkt PO BID [facility] Stop: 09/18/17 21:46 Last Admin: 09/16/17 22:23 Dose: Not Given Physical Exam - Constitutional Appears: In Acute Distress, Chronically Ill - Head Exam Head Exam: NORMAL INSPECTION - ENT Exam ENT Exam: Mucous Membranes Moist - Neck Exam Neck exam: Negative for: Meningismus - Respiratory Exam Respiratory Exam: Decreased Breath Sounds, Rales (scattered) - Cardiovascular Exam Cardiovascular Exam: +S1, +S2 - GI/Abdominal Exam GI & Abdominal Exam: Soft. absent: Tenderness Results - Vital Signs Recent Vital Signs: Last Vital Signs Temp 104.6 F H 09/16/17 23:26 Pulse 130 H 09/16/17 22:31 Resp 24 09/16/17 22:31 BP 140/80 09/16/17 22:31 Pulse Ox 95 09/16/17 22:31 - Labs Result Diagrams: 09/17/17 05:30 09/17/17 05:30 Assessment & Plan - Assessment and Plan (Free Text) Plan: Assessment systemic inflammatory response syndrome, R/O severe sepsis from left sided HCAP R/O port-related bacteremia history of fever and neutropenia bilateral lower extremity swelling, consider venous stasis acute on chronic renal failure S/P Sepsis due to left lower HCAP, probably post-obstructive pneumonitis in a patient with 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
[2017-09-17] MEDS: Linezolid 600 mg in D5W 300 ml 600 MG/300 ML BAG IVPB SCH ×2 (15:25→21:46)
[2017-09-17] MEDS: Budesonide 0.5 mg/2 ml Inhal Susp UD IH SCH (19:13)
--- NOTE | 2017-09-17 20:18 | CON ---
DATE: 09/17/2017 PULMONARY CONSULTATION REFERRING PHYSICIAN: Alejandro Miranda MD REASON FOR CONSULTATION: Shortness of breath. HISTORY OF PRESENT ILLNESS: The patient is a 62-year-old female, with past medical history significant for advanced chronic obstructive pulmonary disease, positive extensive smoking history, advanced/extensive non-small cell cancer of the left lung, who presents to [facility] with main complaints of fevers and chills for 1 day. The patient also stated to some tenderness over her right Port-A-Cath site. In the emergency room, the patient was noted to be febrile. She was thus admitted for additional evaluation. The patient is mildly to moderately short of breath at rest this morning. She does have chronic dyspnea on exertion. She also has a chronic cough with minimal sputum production - unchanged (as per patient). There is no history of chest pain, coughing up of blood, or chest pain - made worse with deep respirations. As above, the patient did present with fevers and chills. No known infectious exposure. No history of night sweats. The patient has lost some weight with decreased appetite over the past year. No history of calf pains. No history of syncope or diaphoresis. No history of recent travel or trauma. REVIEW OF SYSTEMS: No history of nausea, vomiting or diarrhea. No acute urinary symptoms. No new neurologic complaints. Rest of the review of systems negative. ALLERGIES: NO KNOWN ALLERGIES. SOCIAL HISTORY: Positive for extensive tobacco usage. No alcohol. FAMILY HISTORY No inheritable diseases. HOME MEDICATIONS: Include potassium, Lasix, Advair. PHYSICAL EXAMINATION: GENERAL: The patient is mildly to moderately short of breath at the present time. She is in no acute distress. She is quite anxious. VITAL SIGNS: Temperature is 102, pulse on the monitor is 108, respiratory rate 22/24, blood pressure 107/69. Oxygen saturation last measured on nasal cannula - 95%. HEENT: Normocephalic, atraumatic. No JVD. CARDIOVASCULAR: Positive S1, S2. No S3 gallop. LUNGS: Decreased breath sounds at the bases. Mild rhonchi and wheezing bilaterally. EXTREMITIES: Positive for edema. No cyanosis or clubbing. Calves are nontender to palpation. GASTROINTESTINAL: Abdomen is soft, nontender and nondistended. Bowel sounds are positive. SKIN: No acute rash. NEUROLOGIC: Limited at the present time. PERTINENT LABORATORY DATA: Chest x-ray was done yesterday and reviewed. The chest x-ray is not significantly changed from the film of 09/05/2017. CBC: White count 13.3, hemoglobin 8.9, hematocrit 27.7 with platelets of 35,000. Initial white count 22,700. Arterial blood gas was done on nasal cannula yesterday. Results are pH of 7.49, pCO2 of 41, pO2 of 74. IMPRESSION: 1. Sepsis syndrome. 2. Advanced chronic obstructive pulmonary disease, on home oxygen. 3. Advanced non-small cell cancer of the left lung. 4. Mild to moderate bronchospasm. 5. Anemia. 6. Thrombocytopenia. PLAN: The patient presents to [facility] with main complaints of fevers and chills for 1 day. As per history, the patient reportedly had a fever of 104.6 at home. Her T-max in the hospital has been 102. As above, the patient is mildly to moderately short of breath this morning. On physical exam, there is moderate bronchospasm noted. I will start the patient on nebulizer treatments, inhaled steroids and intravenous steroids this morning. The patient has been pancultured, and started on antibiotic therapy (as per Infectious Disease). Input by Dr. Pichardo is noted. The patient does appear more short of breath this morning - compared to her presentation yesterday. Repeat arterial blood gas and repeat chest x-ray are ordered on a stat basis. I will check them both when feasible. As above, the initial chest x-ray is not significantly changed from the previous film. I did discuss the case with the ICU team at length. The patient will be transferred to the ICU in the next few moments. She appears critically ill at this point in time with overall very poor prognosis. Oncology evaluation has also been ordered - with Dr. Wood. Additional pulmonary intervention will be based on the above results, as well as the clinical status of the patient. I will discuss the above with Dr. Miranda. Thank you very much for this pulmonary consultation. Amadou Mueller MD [place]
--- NOTE | 2017-09-17 20:56 | CARD ---
APPROVED REPORT EKG Measurement Heart [id number] <Conclusion> Sinus tachycardia Otherwise normal ECG
--- NOTE | 2017-09-17 23:11 | CP.PCM.CON ---
History of Present Illness - History of Present Illness History of Present Illness: is 62 year old female, recently diagnosed with Stage IV lung cancer. Currently getting single agent chemotherapy with Gemcitabine. She did not radiation . She developed fever of 103 F at home. Advised to go to ER. She has severe long standing COPD with baseline shortness of breath. CXR in ED showed stable left lower lobe lung Cancer. She developed fever 104 last night. FLu serology ordered, positive for Influenza A. She was started on broad spectrum antibiotics . Blood cultures, urine cultures sent. She has pancytopenia , likely related to Flu. Last chemo was 2 weeks ago. She developed respiratory distress with hypoxia. ICU team consulted for transfer to ICU. Review of Systems - Review of Systems Systems not reviewed;Unavailable: Unstable Vital Signs - Constitutional Constitutional: As Per HPI - EENT Eyes: absent: As Per HPI, Blind Spots, Blurred Vision, Change in Vision, Decreased Night Vision, Diplopia, Discharge, Dry Eye, Exophthalmos, Floaters, Irritation, Itchy Eyes, Loss of Peripheral Vision, Pain, Photophobia, Requires Corrective Lenses, Sees Flashes, Spots in Vision, Tunnel Vision, Other Visual Disturbances, Loss of Vision, Other Ears: absent: As Per HPI, Decreased Hearing, Ear Discharge, Ear Pain, Tinnitus, Abnormal Hearing, Disequilibrium, Dizziness, Other Nose/Mouth/Throat: absent: As Per HPI, Epistaxis, Nasal Congestion, Nasal Discharge, Nasal Obstruction, Nasal Trauma, Nose Pain, Post Nasal Drip, Sinus Pain, Sinus Pressure, Bleeding Gums, Change in Voice, Dental Pain, Dry Mouth, Dysphagia, Halitosis, Hoarsness, Lip Swelling, Mouth Lesions, Mouth Pain, Odynophagia, Sore Throat, Throat Swelling, Tongue Swelling, Facial Pain, Neck Pain, Neck Mass, Other - Breasts Breasts: absent: As Per HPI, Change in Shape, Mass, Pain, Nipple Discharge, Nipple Inversion, Skin Changes, Swelling, Other - Cardiovascular Cardiovascular: absent: As Per HPI, Acrocyanosis, Chest Pain, Chest Pain at Rest , Chest Pain with Activity, Claudication, Diaphoresis, Dyspnea, Dyspnea on Exertion, Edema, Irregular Heart Rhythm, Pain Radiating to Arm/Neck/Jaw, Leg Edema, Leg Ulcers, Lightheadedness, Orthopnea, Palpitations, Paroxysmal Nocturnal Dyspnea, Pedal Edema, Radiating Pain, Rapid Heart Rate, Slow Heart Rate, Syncope, Other - Respiratory Respiratory: As Per HPI - Gastrointestinal Gastrointestinal: absent: As Per HPI, Abdominal Pain, Belching, Bloating, Change in Bowel Habits, Change in Stool Character, Coffee Ground Emesis, Constipation, Cramping, Diarrhea, Dyspepsia, Dysphagia, Early Satiety, Excessive Flatus, Fecal Incontinence, Heartburn, Hematemesis, Hematochezia, Loose Stools, Melena, Nausea, Odynophagia, Temesmus, Vomiting, Other - Genitourinary Genitourinary: absent: As Per HPI, Change in Urinary Stream, Difficulty Urinating, Dysuria, Flank Pain, Hematuria, Pyuria, Nocturia, Urinary Incontinence, Urinary Frequency, Urinary Hesitance, Urinary Urgency, Voiding Freq/Small Amts, Freq UTI, Hx Renal/Bladder Calculi, Hx /Renal Surgery, Bladder Distension, Other - Musculoskeletal Musculoskeletal: absent: As Per HPI, Abnormal Gait, Arthralgias, Atrophy, Back Pain, Deformity, Joint Swelling, Limited Range of Motion, Loss of Height, Muscle Cramps, Muscle Weakness, Myalgias, Neck Pain, Numbness, Radiating Pain into Limb, Stiffness, Tingling, Other - Integumentary Integumentary: absent: As Per HPI, Acne, Alopecia, Bleeding Lesions, Change in Hair, Change in Nails, Change in Pigmentation, Changing Lesions, Dry Skin, Erythema, Furuncle, Hirsutism, Lesions, New Lesions, Non-Healing Lesions, Photosensitivity, Pruritus, Rash, Skin Pain, Skin Ulcer, Sores, Striae, Swelling , Unusual Bruising, Wounds, Jaundice, Other - Neurological Neurological: absent: As Per HPI, Abnormal Gait, Abnormal Hearing, Abnormal Movements, Abnormal Speech, Behavioral Changes, Burning Sensations, Confusion, Convulsions, Disequilibrium, Dizziness, Numbness, Focal Weakness, Frequent Falls , Headaches, Lack of Coordination, Loss of Vision, Memory Loss, Paresthesias, Radicular Pain, Restless Legs, Sensory Deficit, Syncope, Tingling, Tremor, Vertigo, Weakness, Other Visual Disturbances, Other - Psychiatric Psychiatric: absent: As Per HPI, Abnormal Sleep Pattern, Anhedonia, Anxiety, Auditory Hallucinations, Behavioral Changes, Change in Appetite, Change in Libido, Confusion, Depression, Difficulty Concentrating, Hallucinations, Homicidal Ideation, Hopelessness, Irritability, Memory Loss, Mood Swings, Panic Attacks, Paranoia, Suicidal Ideation, Visual Hallucinations, Tactile Hallucinations, Other - Endocrine Endocrine: absent: As Per HPI, Change in Body Appearance, Change in Libido, Cold Intolorance, Deepening of Voice, Excessive Sweating, Fatigue, Flushing, Heat Intolorance, Increase in Ring/Shoe/Hat Size, Palpitations, Polydipsia, Polyphagia, Polyuria, Other - Hematologic/Lymphatic Hematologic: As Per HPI Past Patient History - Infectious Disease Hx of Infectious Diseases: None - Past Social History Smoking Status: Former Smoker - CARDIAC Hx Cardiac Disorders: No Hx Pacemaker: No - PULMONARY Hx Respiratory Disorders: Yes Hx Chronic Obstructive Pulmonary Disease (COPD): Yes Hx Emphysema: Yes - NEUROLOGICAL Hx Neurological Disorder: No - HEENT Hx HEENT Problems: No - RENAL Hx Chronic Kidney Disease: Yes Hx Renal Failure: Yes - ENDOCRINE/METABOLIC Hx Endocrine Disorders: No - HEMATOLOGICAL/ONCOLOGICAL Hx Blood Disorders: Yes Hx Anemia: Yes Hx Chemotherapy: Yes (last dose 07-21-17) - INTEGUMENTARY Hx Dermatological Problems: No - MUSCULOSKELETAL/RHEUMATOLOGICAL Hx Musculoskeletal Disorders: No Hx Falls: No - GASTROINTESTINAL Hx Gastrointestinal Disorders: No - GENITOURINARY/GYNECOLOGICAL Hx Genitourinary Disorders: No - PSYCHIATRIC Hx Psychophysiologic Disorder: No Hx Emotional Abuse: No Hx Physical Abuse: No Hx Substance Use: No - SURGICAL HISTORY Other/Comment: Breast reduction. R chest port - ANESTHESIA Hx Anesthesia: Yes Hx Anesthesia Reactions: No Hx Malignant Hyperthermia: No Meds Allergies/Adverse Reactions: Allergies Allergy/AdvReac Type Severity Reaction Status Date / Time No Known Allergies Allergy Verified 09/16/17 16:31 - Medications Medications: Current Medications Acetaminophen (Tylenol 325mg Tab) 975 mg PO ONCE PRN PRN Reason: Fever >100.4 F Last Admin: 09/17/17 08:10 Dose: 975 mg Albuterol/Ipratropium (Duoneb 3 Mg/0.5 Mg (3 Ml) Ud) 3 ml IH [id number] LUZ MARINA Last Admin: 09/17/17 19:13 Dose: 3 ml Albuterol/Ipratropium (Duoneb 3 Mg/0.5 Mg (3 Ml) Ud) 3 ml IH Q2H PRN PRN Reason: Shortness of Breath Last Admin: 09/17/17 09:07 Dose: 3 ml Budesonide (Pulmicort Respules) 0.5 mg IH [id number] [facility] Last Admin: 09/17/17 19:13 Dose: 0.5 mg Doxycycline Hyclate 100 mg/ (Sodium Chloride) 100 mls @ 100 mls/hr IVPB Q12 LUZ MARINA PRN Reason: Protocol Last Admin: 09/17/17 22:27 Dose: 100 mls/hr Meropenem (Merrem Iv 1 Gm Premix) 50 mls @ 100 mls/hr IVPB Q12 LUZ MARINA PRN Reason: Protocol Last Admin: 09/17/17 21:42 Dose: 100 mls/hr Linezolid (Zyvox 600mg/300ml D5w) 600 mg in 300 mls @ 200 mls/hr IVPB Q12 LUZ MARINA PRN Reason: Protocol Stop: 09/24/17 13:46 Last Admin: 09/17/17 21:46 Dose: 200 mls/hr Magnesium Oxide (Mag-Ox) 400 mg PO TID [facility] Last Admin: 09/17/17 17:55 Dose: 400 mg Oseltamivir Phosphate (Tamiflu Susp) 30 mg PO BID LUZ MARINA PRN Reason: Protocol Last Admin: 09/17/17 17:54 Dose: 30 mg Potassium Phos/Sodium Phos (Neutra-Phos) 1 pkt PO BID [facility] Stop: 09/18/17 21:46 Last Admin: 09/17/17 17:55 Dose: 1 pkt Physical Exam - Constitutional Appears: In Acute Distress - Head Exam Head Exam: ATRAUMATIC, NORMAL INSPECTION, NORMOCEPHALIC - Eye Exam Eye Exam: absent: Conjunctival injection, EOMI, Normal appearance, Nystagmus, Periorbital swelling, Periorbital tenderness, PERRL, Scleral icterus - ENT Exam ENT Exam: absent: Mucous Membranes Dry, Mucous Membranes Moist, Normal Exam, Normal External Ear Exam, Normal Oropharynx, TM's Normal Bilaterally - Neck Exam Neck exam: Positive for: Normal Inspection - Respiratory Exam Respiratory Exam: Accessory Muscle Use, Rales, Rhonchi - Cardiovascular Exam Cardiovascular Exam: Tachycardia - GI/Abdominal Exam GI & Abdominal Exam: Normal Bowel Sounds, Soft - Extremities Exam Extremities exam: Positive for: normal inspection - Neurological Exam Neurological exam: Alert, Oriented x3 - Skin Skin Exam: Cyanosis Results - Vital Signs Recent Vital Signs: Last Vital Signs Temp 99 F 09/17/17 20:00 Pulse 98 H 09/17/17 21:00 Resp 31 H 09/17/17 21:00 BP 108/75 09/17/17 21:00 Pulse Ox 91 L 09/17/17 21:00 - Labs Result Diagrams: 09/17/17 05:30 09/17/17 05:30 Labs: Laboratory Results - last 24 hr 09/17/17 09/17/17 09/17/17 00:36 00:40 00:40 WBC 16.7 H D RBC 3.45 L Hgb 9.2 L Hct 28.2 L MCV 81.7 MCH 26.7 MCHC 32.6 RDW 25.2 H Plt Count 29 L* MPV 7.7 Gran % 91.1 H Lymph % (Auto) 3.8 L [place] % (Auto) 5.0 Eos % (Auto) 0.0 L Baso % (Auto) 0.1 Gran # 15.22 H Lymph # (Auto) 0.6 L [place] # (Auto) 0.8 H Eos # (Auto) 0.0 Baso # (Auto) 0.01 pCO2 41 pO2 74.0 L HCO3 31.2 H ABG pH 7.49 H ABG Total CO2 32.5 H ABG O2 Saturation 98.1 H ABG O2 Content ABG Base Excess 7.2 H ABG Hemoglobin ABG Carboxyhemoglobin POC ABG HHb (Measured) ABG Methemoglobin ABG O2 Capacity ABG Potassium 1.9 L* VBG pH VBG pCO2 VBG HCO3 VBG Total CO2 VBG O2 Sat (Calc) VBG Base Excess VBG Potassium Hgb O2 Saturation Sodium 131.0 L 128 L Chloride 95.0 L 88 L Glucose 166 H Lactate 0.8 FiO2 32.0 Potassium 2.7 L* Carbon Dioxide 32 Anion Gap 11 BUN 19 Creatinine 1.7 H Est GFR ( Amer) 37 Est GFR (Non-Af Amer) 30 POC Glucose (mg/dL) Random Glucose 165 H Calcium 8.8 Phosphorus Magnesium Total Bilirubin AST ALT Alkaline Phosphatase Troponin I 0.04 D Total Protein Albumin Globulin Albumin/Globulin Ratio Procalcitonin Arterial Blood Potassium 1.9 L* Venous Blood Potassium Urine Osmolality Ur Random Sodium Influenza Typ A,B (EIA) Ur L.pneumophila Ag 09/17/17 09/17/17 09/17/17 02:00 04:00 05:30 WBC 13.3 H D RBC 3.36 L Hgb 8.9 L Hct 27.7 L MCV 82.4 MCH 26.5 MCHC 32.1 RDW 25.9 H Plt Count 35 L* MPV 8.1 Gran % Lymph % (Auto) [place] % (Auto) Eos % (Auto) Baso % (Auto) Gran # Lymph # (Auto) [place] # (Auto) Eos # (Auto) Baso # (Auto) pCO2 pO2 51 HCO3 ABG pH ABG Total CO2 ABG O2 Saturation ABG O2 Content ABG Base Excess ABG Hemoglobin ABG Carboxyhemoglobin POC ABG HHb (Measured) ABG Methemoglobin ABG O2 Capacity ABG Potassium VBG pH 7.33 VBG pCO2 63.0 H VBG HCO3 33.2 H VBG Total CO2 35.1 H VBG O2 Sat (Calc) 88.0 H VBG Base Excess 5.3 H VBG Potassium 2.5 L* Hgb O2 Saturation Sodium 131.0 L Chloride 98.0 Glucose 145 H Lactate 0.8 FiO2 21.0 Potassium Carbon Dioxide Anion Gap BUN Creatinine Est GFR ( Amer) Est GFR (Non-Af Amer) POC Glucose (mg/dL) Random Glucose Calcium Phosphorus Magnesium Total Bilirubin AST ALT Alkaline Phosphatase Troponin I Total Protein Albumin Globulin Albumin/Globulin Ratio Procalcitonin Arterial Blood Potassium Venous Blood Potassium 2.5 L* Urine Osmolality Ur Random Sodium Influenza Typ A,B (EIA) Negative for flu a/b Ur L.pneumophila Ag 09/17/17 09/17/17 09/17/17 05:30 05:30 08:22 WBC RBC Hgb Hct MCV MCH MCHC RDW Plt Count MPV Gran % Lymph % (Auto) [place] % (Auto) Eos % (Auto) Baso % (Auto) Gran # Lymph # (Auto) [place] # (Auto) Eos # (Auto) Baso # (Auto) pCO2 pO2 HCO3 ABG pH ABG Total CO2 ABG O2 Saturation ABG O2 Content ABG Base Excess ABG Hemoglobin ABG Carboxyhemoglobin POC ABG HHb (Measured) ABG Methemoglobin ABG O2 Capacity ABG Potassium VBG pH VBG pCO2 VBG HCO3 VBG Total CO2 VBG O2 Sat (Calc) VBG Base Excess VBG Potassium Hgb O2 Saturation Sodium 133 Chloride 95 L Glucose Lactate FiO2 Potassium 3.0 L Carbon Dioxide 32 Anion Gap 8 L BUN 18 Creatinine 1.5 H Est GFR ( Amer) 43 Est GFR (Non-Af Amer) 35 POC Glucose (mg/dL) 137 H Random Glucose 139 H Calcium 8.6 Phosphorus 3.9 Magnesium 1.6 L Total Bilirubin 0.9 AST 17 ALT 17 Alkaline Phosphatase 105 Troponin I 0.03 D Total Protein 6.1 Albumin 2.8 L Globulin 3.3 Albumin/Globulin Ratio 0.9 L Procalcitonin 4.69 H Arterial Blood Potassium Venous Blood Potassium Urine Osmolality Ur Random Sodium Influenza Typ A,B (EIA) Ur L.pneumophila Ag 09/17/17 09/17/17 09/17/17 08:25 08:30 16:04 WBC RBC Hgb Hct MCV MCH MCHC RDW Plt Count MPV Gran % Lymph % (Auto) [place] % (Auto) Eos % (Auto) Baso % (Auto) Gran # Lymph # (Auto) [place] # (Auto) Eos # (Auto) Baso # (Auto) pCO2 43 pO2 43.0 L* HCO3 26.6 ABG pH 7.40 ABG Total CO2 27.9 ABG O2 Saturation 82.3 L ABG O2 Content 11.5 L ABG Base Excess 1.5 ABG Hemoglobin 10.3 L ABG Carboxyhemoglobin 2.7 H POC ABG HHb (Measured) 17.1 H ABG Methemoglobin 0.4 ABG O2 Capacity 14.0 L ABG Potassium VBG pH VBG pCO2 VBG HCO3 VBG Total CO2 VBG O2 Sat (Calc) VBG Base Excess VBG Potassium Hgb O2 Saturation 79.7 L Sodium Chloride Glucose Lactate FiO2 32.0 Potassium Carbon Dioxide Anion Gap BUN Creatinine Est GFR ( Amer) Est GFR (Non-Af Amer) POC Glucose (mg/dL) Random Glucose Calcium Phosphorus Magnesium Total Bilirubin AST ALT Alkaline Phosphatase Troponin I Total Protein Albumin Globulin Albumin/Globulin Ratio Procalcitonin Arterial Blood Potassium Venous Blood Potassium Urine Osmolality 219 L Ur Random Sodium Influenza Typ A,B (EIA) Pos for influenza a H Ur L.pneumophila Ag 09/17/17 09/17/17 16:04 16:04 WBC RBC Hgb Hct MCV MCH MCHC RDW Plt Count MPV Gran % Lymph % (Auto) [place] % (Auto) Eos % (Auto) Baso % (Auto) Gran # Lymph # (Auto) [place] # (Auto) Eos # (Auto) Baso # (Auto) pCO2 pO2 HCO3 ABG pH ABG Total CO2 ABG O2 Saturation ABG O2 Content ABG Base Excess ABG Hemoglobin ABG Carboxyhemoglobin POC ABG HHb (Measured) ABG Methemoglobin ABG O2 Capacity ABG Potassium VBG pH VBG pCO2 VBG HCO3 VBG Total CO2 VBG O2 Sat (Calc) VBG Base Excess VBG Potassium Hgb O2 Saturation Sodium Chloride Glucose Lactate FiO2 Potassium Carbon Dioxide Anion Gap BUN Creatinine Est GFR ( Amer) Est GFR (Non-Af Amer) POC Glucose (mg/dL) Random Glucose Calcium Phosphorus Magnesium Total Bilirubin AST ALT Alkaline Phosphatase Troponin I Total Protein Albumin Globulin Albumin/Globulin Ratio Procalcitonin Arterial Blood Potassium Venous Blood Potassium Urine Osmolality Ur Random Sodium 28 Influenza Typ A,B (EIA) Ur L.pneumophila Ag Negative Assessment & Plan - Assessment and Plan (Free Text) Assessment: 1. Lung Cancer stage IV . on single agent chemo Gemcitabine.Last chemo 2 weeks ago. Did not receive radiation. 2. Pancytopenia : likely related to flu. will monitor blood counts. 3. ID : fever, flu positive. on IV antibiotics, tamiflu. No evidence of port infection. cultures pending. 4. COPD, respiratory distress : [employer] consulted for transfer to ICU. Dt. Mueller consulted. 5. DVT prophylaxis with heparin. Condition critical. Thank you DR. Miranda for allowing us to participate in her care. - Date & Time Date: 09/17/17 Time: 08:00
[2017-09-18] MEDS: Albuterol-Ipratrop 3 mg / 0.5 (3 ml) UD IH SCH ×4 (01:52→20:25)
[2017-09-18 05:12] LABS: ARTERIAL BLOOD GAS HCO3 26.1 mmol/L (21-28); ARTERIAL BLOOD GAS HEMOGLOBIN 8.3 g/dL (11.7-17.4); ARTERIAL BLOOD GAS O2 CAPACITY 11.7 mL/dl (16-24); ARTERIAL BLOOD GAS O2 CONTENT 11.7 ML/dl (15-23); ARTERIAL BLOOD GAS O2 SAT 100.2 % (95-98); ARTERIAL BLOOD GAS PCO2 35 mm/Hg (35-45); ARTERIAL BLOOD GAS PH 7.48 (7.35-7.45); ARTERIAL BLOOD GAS TCO2 27.2 mmol.L (22-28)
[2017-09-18 06:28] LABS: GRAN # 10.22 (1.4-6.5); GRAN % 89.2 % (50.0-68.0); HEMOGLOBIN 9.1 g/dL (12.0-16.0); LYMPH # 0.5 (1.2-3.4); LYMPH % 4.2 % (22.0-35.0); MEAN CELL VOLUME 81.4 fl (80.0-105.0); MEAN CORPUSCULAR HEMOGLOBIN 26.5 pg (25.0-35.0); MEAN CORPUSCULAR HGB CONC 32.5 g/dl (31.0-37.0); MONO # 0.8 (0.1-0.6); MONO % 6.6 % (1.0-6.0); PLATELET COUNT 58 10^3/uL (120.0-450.0); RBC 3.44 10^6/uL (3.5-6.1); RED CELL DISTRIBUTION WIDTH 25.8 % (11.5-14.5); WHITE BLOOD COUNT 11.5 10^3/ul (4.5-11.0)
[2017-09-18 07:17] LABS: ALB/GLOB RATIO 0.9 (1.1-1.8); ALBUMIN 2.9 g/dL (3.0-4.8); CALCIUM 9.3 mg/dL (8.4-10.5)
[2017-09-18] MEDS ORDERED: Potassium Chloride 20 mEq ER Tab PO STA (07:26)
[2017-09-18] MEDS: Budesonide 0.5 mg/2 ml Inhal Susp UD IH SCH ×2 (07:33→20:25)
--- NOTE | 2017-09-18 08:24 | RAD ---
HISTORY: follow up COMPARISON: 09/17/2017 FINDINGS: LUNGS: Chronic interstitial changes are seen. There is a focal area of consolidation at the left lung base PLEURA: No significant pleural effusion identified, no pneumothorax apparent. CARDIOVASCULAR: Normal. OSSEOUS STRUCTURES: No significant abnormalities. VISUALIZED UPPER ABDOMEN: Normal. OTHER FINDINGS: Right IJ Port-A-Cath terminates at the junction of the SVC and right atrium. IMPRESSION: Chronic interstitial changes are seen. There is a focal area of consolidation at the left lung base
[2017-09-18] MEDS ORDERED: DAPTOmycin 500 mg Inj (Cubicin) IV SCH (08:30)
--- NOTE | 2017-09-18 08:59 | PN ---
DATE: 09/18/2017(700am-755am) PULMONARY NOTE SUBJECTIVE: The patient appears much more comfortable this morning. She was sleeping, before I entered the room. PHYSICAL EXAMINATION: VITAL SIGNS: Temperature is 97.5, pulse 92, respirations 18/20, blood pressure 120/64. Oxygen saturation on high-flow delivery is 95%. HEENT: Normocephalic, atraumatic. NECK: No JVD. CARDIOVASCULAR: Positive S1, S2. No S3 gallop. LUNGS: Decreased breath sounds at the bases. Less rhonchi. Less wheezing. EXTREMITIES: Positive for edema. No cyanosis or clubbing. Calves are nontender to palpation. GI: Abdomen is soft, nontender, nondistended. Bowel sounds are positive. SKIN: No acute rash. NEUROLOGIC: Exam limited at the present time. PERTINENT LABORATORY DATA: Chest x-ray was done this morning and reviewed. It is not significantly changed from the film done yesterday. Arterial blood gas was done on high-flow delivery. Results are: pH 7.48, pCO2 of 35, pO2 of 166. IMPRESSION: 1. Sepsis syndrome. 2. Advanced chronic obstructive pulmonary disease, on home oxygen. 3. Advanced non-small cell cancer of the left lung. 4. [id number] bronchospasm-decreased. 5. Anemia. 6. Thrombocytopenia. PLAN: The patient appears much more comfortable this morning. She is not short of breath at rest. She does get very anxious at times. I did discuss the case with the night nurse at length. The night nurse stated that the patient had a very good night. I did review the chest x-ray as above. It is not significantly changed from the film done yesterday. I have also reviewed the arterial blood gas. The arterial blood gas reveals a decrease in the alveolar-arterial gradient. On physical exam, there is certainly less bronchospasm noted. I will continue with the current nebulizer treatments and inhaled steroids, and decrease the IV steroids. The patient also remains on antibiotic therapy-as per Infectious Disease. The temperatures have now resolved. The leukocytosis is resolving. The clinical status of this patient is significantly improved-compared to yesterday. However, unfortunately, the patient's overall status/prognosis does remain poor. I will discuss the above with the entire ICU team in the next few moments. I will also discuss the above with Dr. Miranda later this morning. Amadou Mueller MD [facility]
[2017-09-18] MEDS: Linezolid 600 mg in D5W 300 ml 600 MG/300 ML BAG IVPB SCH (09:27)
[2017-09-18] MEDS: Meropenem IV 1 gm in NS 50 ML IVPB SCH ×2 (09:27→22:36)
[2017-09-18] MEDS: Potassium & Sodium Phosphate PO SCH ×2 (09:28→18:00)
[2017-09-18] MEDS: Magnesium Oxide 400 mg Tab UD PO SCH ×3 (09:29→18:00)
[2017-09-18] MEDS: Oseltamivir 6 MG/ML PO SCH ×2 (09:29→18:12)
[2017-09-18] MEDS: MethylPREDNISolone 40 mg Vial IVP SCH ×2 (09:29→22:36)
--- NOTE | 2017-09-18 09:50 | CP.PCM.PN ---
Subjective - Date & Time of Evaluation Date of Evaluation: 09/18/17 Time of Evaluation: 09:30 - Subjective Subjective: Feeling better, has had no fever this morning, still with some pain along the port area, no diarrhea, no nausea, breathing better. Objective - Vital Signs/Intake and Output Vital Signs (last 24 hours): Temp Pulse Resp BP Pulse Ox 97.5 F L 96 H 30 H 120/64 92 L 09/18/17 04:00 09/18/17 06:30 09/18/17 07:42 09/18/17 06:00 09/18/17 06:30 Intake and Output: 09/18/17 09/18/17 06:59 18:59 Intake Total 1890 Output Total 1550 Balance 340 - Medications Medications: Current Medications Acetaminophen (Tylenol 325mg Tab) 975 mg PO ONCE PRN PRN Reason: Fever >100.4 F Last Admin: 09/17/17 08:10 Dose: 975 mg Albuterol/Ipratropium (Duoneb 3 Mg/0.5 Mg (3 Ml) Ud) 3 ml IH [id number] [facility] Last Admin: 09/18/17 07:33 Dose: 3 ml Albuterol/Ipratropium (Duoneb 3 Mg/0.5 Mg (3 Ml) Ud) 3 ml IH Q2H PRN PRN Reason: Shortness of Breath Last Admin: 09/17/17 09:07 Dose: 3 ml Budesonide (Pulmicort Respules) 0.5 mg IH [id number] [facility] Last Admin: 09/18/17 07:33 Dose: 0.5 mg Daptomycin (Cubicin) 450 mg 6 mg/kg (450 mg) IV Q24H [facility] PRN Reason: Protocol Stop: 09/23/17 08:31 Doxycycline Hyclate 100 mg/ (Sodium Chloride) 100 mls @ 100 mls/hr IVPB Q12 [facility] PRN Reason: Protocol Last Admin: 09/17/17 22:27 Dose: 100 mls/hr Meropenem (Merrem Iv 1 Gm Premix) 50 mls @ 100 mls/hr IVPB Q12 [facility] PRN Reason: Protocol Last Admin: 09/17/17 21:42 Dose: 100 mls/hr Linezolid (Zyvox 600mg/300ml D5w) 600 mg in 300 mls @ 200 mls/hr IVPB Q12 [facility] PRN Reason: Protocol Stop: 09/24/17 13:46 Last Admin: 09/17/17 21:46 Dose: 200 mls/hr Magnesium Oxide (Mag-Ox) 400 mg PO TID [facility] Last Admin: 09/17/17 17:55 Dose: 400 mg Oseltamivir Phosphate (Tamiflu Susp) 30 mg PO BID [facility] PRN Reason: Protocol Last Admin: 09/17/17 17:54 Dose: 30 mg Potassium Phos/Sodium Phos (Neutra-Phos) 1 pkt PO BID [facility] Stop: 09/18/17 21:46 Last Admin: 09/17/17 17:55 Dose: 1 pkt - Labs Labs: 09/18/17 06:00 09/18/17 06:00 PT 16.7 SECONDS (9.4-12.5) H 09/16/17 18:00 INR 1.45 (0.93-1.08) H 09/16/17 18:00 APTT 29.6 Seconds (25.1-36.5) 09/16/17 18:00 - Constitutional Appears: Chronically Ill - Head Exam Head Exam: NORMAL INSPECTION - ENT Exam ENT Exam: Mucous Membranes Moist - Neck Exam Neck Exam: absent: Lymphadenopathy, Meningismus - Respiratory Exam Respiratory Exam: Decreased Breath Sounds, Rales (scattered) Additional comments: right port area with some tenderness but no discharge noted - Cardiovascular Exam Cardiovascular Exam: +S1, +S2 - GI/Abdominal Exam GI & Abdominal Exam: Soft. 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
--- NOTE | 2017-09-18 11:34 | CP.CCUPN ---
<Bar Sanchez - Last Filed: 09/18/17 11:35> CCU Subjective - Physician Review Subjective (Free Text): Patient seen and examined at bedside. Patient states she is feeling better than previous day. Denies chest pain, shortness of breath, nausea, vomiting, diarrhea , fever, chills. CCU Objective - Vital Signs / Intake & Output Vital Signs (Last 4 hours): Vital Signs Temp Pulse Resp BP Pulse Ox 09/18/17 11:31 97.1 F L 09/18/17 10:51 102 H 39 H 09/18/17 10:50 106 H 28 H 09/18/17 10:49 114 H 09/18/17 10:46 104 H 45 H 09/18/17 10:33 115 H 36 H 09/18/17 10:32 111 H 37 H 09/18/17 10:00 104 H 42 H 121/69 100 09/18/17 09:00 111 H 18 109/66 97 09/18/17 08:35 124/72 09/18/17 08:34 110 H 15 09/18/17 08:00 106 H 36 H 92 L 09/18/17 07:42 30 H Intake and Output (Last 8hrs): Intake & Output 09/17/17 09/18/17 09/18/17 22:59 06:59 14:59 Intake Total 1900 1890 Output Total 1500 1550 Balance 400 340 Weight 165 lb Intake: IV 1200 1650 Left Forearm 1200 1650 Oral 700 240 Output: Urine 1500 1550 Urine, Voided 1500 1550 Oral Regurgitation 0 Other: # Voids Urine, Voided 4 - Physical Exam Head: Positive for: Atraumatic, Normocephalic Conjunctiva: Positive for: Normal Ears: Positive for: Normal Mouth: Positive for: Moist Mucous Membranes Neck: Positive for: Normal Range of Motion, Trachea Midline. Negative for: Meningeal Signs, MIDLINE TENDERNESS Respiratory/Chest: Positive for: Tender to Palpation (over the right claudia-cath site), Other. Negative for: Accessory Muscle Use, Wheezes Cardiovascular: Positive for: Normal S1, S2, Tachycardic. Negative for: Murmurs Abdomen: Positive for: Normal Bowel Sounds. Negative for: Tenderness, Distention Back: Positive for: Normal Inspection. Negative for: CVA Tenderness, Midline Tenderness Upper Extremity: Positive for: Normal Inspection, Neurovascularly Intact. Negative for: Edema, Deformity Lower Extremity: Positive for: Normal Inspection, NORMAL PULSES, Neurovascularly Intact. Negative for: Normal ROM, Kenrick's Sign Neurological: Positive for: GCS=15, CN II-XII Intact, Speech Normal Skin: Positive for: Warm, Dry Psychiatric: Positive for: Alert, Oriented x 3, Normal Insight, Normal Concentration - Medications Active Medications: Active Medications Generic Name Dose Route Start Last Admin Trade Name Freq PRN Reason Stop Dose Admin Acetaminophen 975 mg 09/16/17 16:38 09/17/17 08:10 Tylenol 325mg Tab PO 975 mg ONCE PRN Administration Fever >100.4 F Albuterol/Ipratropium 3 ml 09/17/17 14:00 09/18/17 07:33 Duoneb 3 Mg/0.5 Mg (3 Ml) Ud IH 3 ml [id number] LUZ MARINA Administration Albuterol/Ipratropium 3 ml 09/17/17 08:35 09/17/17 09:07 Duoneb 3 Mg/0.5 Mg (3 Ml) Ud IH 3 ml Q2H PRN Administration Shortness of Breath Budesonide 0.5 mg 09/17/17 20:00 09/18/17 07:33 Pulmicort Respules IH 0.5 mg [id number] LUZ MARINA Administration Enoxaparin Sodium 40 mg 09/18/17 10:30 Lovenox SC DAILY LUZ MARINA Protocol Doxycycline Hyclate 100 mg/ 100 mls @ 100 mls/hr 09/17/17 00:17 09/18/17 09: 27 Sodium Chloride IVPB 100 mls/hr Q12 LUZ MARINA Administration Protocol Meropenem 50 mls @ 100 mls/hr 09/17/17 08:15 09/18/17 09:27 Merrem Iv 1 Gm Premix IVPB 100 mls/hr Q12 LU ZMARINA Administration Protocol Linezolid 600 mg in 300 mls @ 200 mls/hr 09/17/17 13:45 09/18/17 09:27 Zyvox 600mg/300ml D5w IVPB 09/24/17 13:46 200 mls/hr Q12 LUZ MARINA Administration Protocol Daptomycin 450 mg/ Sodium 100 mls @ 200 mls/hr 09/18/17 08:30 09/18/17 10:15 Chloride IV 09/23/17 08:31 200 mls/hr Q24H LUZ MARINA Administration Magnesium Oxide 400 mg 09/17/17 10:00 09/18/17 09:29 Mag-Ox PO 400 mg TID LUZ MARINA Administration Methylprednisolone 40 mg 09/18/17 10:00 09/18/17 09:29 Solu-Medrol IVP 40 mg Q12 LUZ MARINA Administration Oseltamivir Phosphate 30 mg 09/17/17 10:00 09/18/17 09:29 Tamiflu Susp PO 30 mg BID LUZ MARINA Administration Protocol Potassium Phos/Sodium Phos 1 pkt 09/16/17 21:45 09/18/17 09:28 Neutra-Phos PO 09/18/17 21:46 1 pkt BID LUZ MARINA Administration - Patient Studies Lab Studies: Lab Studies 09/18/17 09/18/17 09/18/17 Range/Units 08:20 08:20 06:00 WBC (4.5-11.0) 10^3/ul RBC (3.5-6.1) 10^6/uL Hgb (12.0-16.0) g/dL Hct (36.0-48.0) % MCV (80.0-105.0) fl MCH (25.0-35.0) pg MCHC (31.0-37.0) g/dl RDW (11.5-14.5) % Plt Count (120.0-450.0) 10^3/uL Gran % (50.0-68.0) % Lymph % (Auto) (22.0-35.0) % [place] % (Auto) (1.0-6.0) % Eos % (Auto) (1.5-5.0) % Baso % (Auto) (0.0-3.0) % Gran # (1.4-6.5) Lymph # (Auto) (1.2-3.4) [place] # (Auto) (0.1-0.6) Eos # (Auto) (0.0-0.7) Baso # (Auto) (0.0-2.0) K/mm3 ESR 54 H (0.0-20.0) mm/hr pCO2 (35-45) mm/Hg pO2 (80-100) mm/Hg HCO3 (21-28) mmol/L ABG pH (7.35-7.45) ABG Total CO2 (22-28) mmol.L ABG O2 Saturation (95-98) % ABG O2 Content (15-23) ML/dl ABG Base Excess (-2.0-3.0) mmol/L ABG Hemoglobin (11.7-17.4) g/dL ABG Carboxyhemoglobin (0.5-1.5) % POC ABG HHb (Measured) (0-5) % ABG Methemoglobin (0.0-3.0) % ABG O2 Capacity (16-24) mL/dl Hgb O2 Saturation (95.0-98.0) % FiO2 % Sodium 132 (132-148) mmol/L Potassium 3.1 L (3.6-5.0) mmol/L Chloride 95 L (98-107) mmol/L Carbon Dioxide 30 (21-33) mmol/L Anion Gap 11 (10-20) BUN 20 (7-21) mg/dL Creatinine 1.3 H (0.7-1.2) mg/dl Est GFR ( Amer) 50 Est GFR (Non-Af Amer) 42 Random Glucose 124 H (70-110) mg/dL Calcium 9.3 (8.4-10.5) mg/dL Total Bilirubin 0.7 (0.2-1.3) mg/dL AST 30 (14-36) U/L ALT 20 (7-56) U/L Alkaline Phosphatase 116 (38-126) U/L Total Creatine Kinase 21 L (35-230) U/L Total Protein 6.2 (5.8-8.3) g/dL Albumin 2.9 L (3.0-4.8) g/dL Globulin 3.3 gm/dL Albumin/Globulin Ratio 0.9 L (1.1-1.8) Procalcitonin (0.19-0.49) NG/ML Urine Osmolality (300-1000) mosm/kg Ur Random Sodium meq/L Ur L.pneumophila Ag (NEGATIVE) 09/18/17 09/18/17 09/17/17 Range/Units 06:00 05:09 16:04 WBC 11.5 H (4.5-11.0) 10^3/ul RBC 3.44 L (3.5-6.1) 10^6/uL Hgb 9.1 L (12.0-16.0) g/dL Hct 28.0 L (36.0-48.0) % MCV 81.4 (80.0-105.0) fl MCH 26.5 (25.0-35.0) pg MCHC 32.5 (31.0-37.0) g/dl RDW 25.8 H (11.5-14.5) % Plt Count 58 L (120.0-450.0) 10^3/uL Gran % 89.2 H (50.0-68.0) % Lymph % (Auto) 4.2 L (22.0-35.0) % [place] % (Auto) 6.6 H (1.0-6.0) % Eos % (Auto) 0.0 L (1.5-5.0) % Baso % (Auto) 0.0 (0.0-3.0) % Gran # 10.22 H (1.4-6.5) Lymph # (Auto) 0.5 L (1.2-3.4) [place] # (Auto) 0.8 H (0.1-0.6) Eos # (Auto) 0.0 (0.0-0.7) Baso # (Auto) 0.00 (0.0-2.0) K/mm3 ESR (0.0-20.0) mm/hr pCO2 35 (35-45) mm/Hg pO2 166.0 H (80-100) mm/Hg HCO3 26.1 (21-28) mmol/L ABG pH 7.48 H (7.35-7.45) ABG Total CO2 27.2 (22-28) mmol.L ABG O2 Saturation 100.2 H (95-98) % ABG O2 Content 11.7 L (15-23) ML/dl ABG Base Excess 2.5 (-2.0-3.0) mmol/L ABG Hemoglobin 8.3 L (11.7-17.4) g/dL ABG Carboxyhemoglobin 2.4 H (0.5-1.5) % POC ABG HHb (Measured) -0.2 L (0-5) % ABG Methemoglobin 0.9 (0.0-3.0) % ABG O2 Capacity 11.7 L (16-24) mL/dl Hgb O2 Saturation 96.9 (95.0-98.0) % FiO2 35.0 % Sodium (132-148) mmol/L Potassium (3.6-5.0) mmol/L Chloride (98-107) mmol/L Carbon Dioxide (21-33) mmol/L Anion Gap (10-20) BUN (7-21) mg/dL Creatinine (0.7-1.2) mg/dl Est GFR ( Amer) Est GFR (Non-Af Amer) Random Glucose (70-110) mg/dL Calcium (8.4-10.5) mg/dL Total Bilirubin (0.2-1.3) mg/dL AST (14-36) U/L ALT (7-56) U/L Alkaline Phosphatase (38-126) U/L Total Creatine Kinase (35-230) U/L Total Protein (5.8-8.3) g/dL Albumin (3.0-4.8) g/dL Globulin gm/dL Albumin/Globulin Ratio (1.1-1.8) Procalcitonin (0.19-0.49) NG/ML Urine Osmolality (300-1000) mosm/kg Ur Random Sodium 28 meq/L Ur L.pneumophila Ag (NEGATIVE) 09/17/17 09/17/17 09/17/17 Range/Units 16:04 16:04 05:30 WBC (4.5-11.0) 10^3/ul RBC (3.5-6.1) 10^6/uL Hgb (12.0-16.0) g/dL Hct (36.0-48.0) % MCV (80.0-105.0) fl MCH (25.0-35.0) pg MCHC (31.0-37.0) g/dl RDW (11.5-14.5) % Plt Count (120.0-450.0) 10^3/uL Gran % (50.0-68.0) % Lymph % (Auto) (22.0-35.0) % [place] % (Auto) (1.0-6.0) % Eos % (Auto) (1.5-5.0) % Baso % (Auto) (0.0-3.0) % Gran # (1.4-6.5) Lymph # (Auto) (1.2-3.4) [place] # (Auto) (0.1-0.6) Eos # (Auto) (0.0-0.7) Baso # (Auto) (0.0-2.0) K/mm3 ESR (0.0-20.0) mm/hr pCO2 (35-45) mm/Hg pO2 (80-100) mm/Hg HCO3 (21-28) mmol/L ABG pH (7.35-7.45) ABG Total CO2 (22-28) mmol.L ABG O2 Saturation (95-98) % ABG O2 Content (15-23) ML/dl ABG Base Excess (-2.0-3.0) mmol/L ABG Hemoglobin (11.7-17.4) g/dL ABG Carboxyhemoglobin (0.5-1.5) % POC ABG HHb (Measured) (0-5) % ABG Methemoglobin (0.0-3.0) % ABG O2 Capacity (16-24) mL/dl Hgb O2 Saturation (95.0-98.0) % FiO2 % Sodium (132-148) mmol/L Potassium (3.6-5.0) mmol/L Chloride (98-107) mmol/L Carbon Dioxide (21-33) mmol/L Anion Gap (10-20) BUN (7-21) mg/dL Creatinine (0.7-1.2) mg/dl Est GFR ( Amer) Est GFR (Non-Af Amer) Random Glucose (70-110) mg/dL Calcium (8.4-10.5) mg/dL Total Bilirubin (0.2-1.3) mg/dL AST (14-36) U/L ALT (7-56) U/L Alkaline Phosphatase (38-126) U/L Total Creatine Kinase (35-230) U/L Total Protein (5.8-8.3) g/dL Albumin (3.0-4.8) g/dL Globulin gm/dL Albumin/Globulin Ratio (1.1-1.8) Procalcitonin 4.69 H (0.19-0.49) NG/ML Urine Osmolality 219 L (300-1000) mosm/kg Ur Random Sodium meq/L Ur L.pneumophila Ag Negative (NEGATIVE) Laboratory Results - last 24 hr 09/17/17 09/17/17 09/17/17 05:30 16:04 16:04 WBC RBC Hgb Hct MCV MCH MCHC RDW Plt Count Gran % Lymph % (Auto) [place] % (Auto) Eos % (Auto) Baso % (Auto) Gran # Lymph # (Auto) [place] # (Auto) Eos # (Auto) Baso # (Auto) ESR pCO2 pO2 HCO3 ABG pH ABG Total CO2 ABG O2 Saturation ABG O2 Content ABG Base Excess ABG Hemoglobin ABG Carboxyhemoglobin POC ABG HHb (Measured) ABG Methemoglobin ABG O2 Capacity Hgb O2 Saturation FiO2 Sodium Potassium Chloride Carbon Dioxide Anion Gap BUN Creatinine Est GFR ( Amer) Est GFR (Non-Af Amer) Random Glucose Calcium Total Bilirubin AST ALT Alkaline Phosphatase Total Creatine Kinase Total Protein Albumin Globulin Albumin/Globulin Ratio Procalcitonin 4.69 H Urine Osmolality 219 L Ur Random Sodium Ur L.pneumophila Ag Negative 09/17/17 09/18/17 09/18/17 16:04 05:09 06:00 WBC 11.5 H RBC 3.44 L Hgb 9.1 L Hct 28.0 L MCV 81.4 MCH 26.5 MCHC 32.5 RDW 25.8 H Plt Count 58 L Gran % 89.2 H Lymph % (Auto) 4.2 L [place] % (Auto) 6.6 H Eos % (Auto) 0.0 L Baso % (Auto) 0.0 Gran # 10.22 H Lymph # (Auto) 0.5 L [place] # (Auto) 0.8 H Eos # (Auto) 0.0 Baso # (Auto) 0.00 ESR pCO2 35 pO2 166.0 H HCO3 26.1 ABG pH 7.48 H ABG Total CO2 27.2 ABG O2 Saturation 100.2 H ABG O2 Content 11.7 L ABG Base Excess 2.5 ABG Hemoglobin 8.3 L ABG Carboxyhemoglobin 2.4 H POC ABG HHb (Measured) -0.2 L ABG Methemoglobin 0.9 ABG O2 Capacity 11.7 L Hgb O2 Saturation 96.9 FiO2 35.0 Sodium Potassium Chloride Carbon Dioxide Anion Gap BUN Creatinine Est GFR ( Amer) Est GFR (Non-Af Amer) Random Glucose Calcium Total Bilirubin AST ALT Alkaline Phosphatase Total Creatine Kinase Total Protein Albumin Globulin Albumin/Globulin Ratio Procalcitonin Urine Osmolality Ur Random Sodium 28 Ur L.pneumophila Ag 09/18/17 09/18/17 09/18/17 06:00 08:20 08:20 WBC RBC Hgb Hct MCV MCH MCHC RDW Plt Count Gran % Lymph % (Auto) [place] % (Auto) Eos % (Auto) Baso % (Auto) Gran # Lymph # (Auto) [place] # (Auto) Eos # (Auto) Baso # (Auto) ESR 54 H pCO2 pO2 HCO3 ABG pH ABG Total CO2 ABG O2 Saturation ABG O2 Content ABG Base Excess ABG Hemoglobin ABG Carboxyhemoglobin POC ABG HHb (Measured) ABG Methemoglobin ABG O2 Capacity Hgb O2 Saturation FiO2 Sodium 132 Potassium 3.1 L Chloride 95 L Carbon Dioxide 30 Anion Gap 11 BUN 20 Creatinine 1.3 H Est GFR ( Amer) 50 Est GFR (Non-Af Amer) 42 Random Glucose 124 H Calcium 9.3 Total Bilirubin 0.7 AST 30 ALT 20 Alkaline Phosphatase 116 Total Creatine Kinase 21 L Total Protein 6.2 Albumin 2.9 L Globulin 3.3 Albumin/Globulin Ratio 0.9 L Procalcitonin Urine Osmolality Ur Random Sodium Ur L.pneumophila Ag Critical Care Progress Note - Nutrition Nutrition: Nutrition Category Date Time Status Heart Healthy Diet [DIET] Diets 09/16/17 Dinner Ordered Assessment/Plan - Assessment and Plan (Free Text) Plan: 62 y/o female with past medical history of COPD, emphysema, renal failure, and lung cancer on radiation therapy presents with hypoxemic respiratory failure in the setting of influenza and MRSA bacteremia. Patient also noted to have left lower lobe consolidation, concerning for pneumonia. Patient will be treated with broad spectrum antibiotics as per ID. We will also consult IR to remove port-a-cath as possible source of infection. Patient will be transferred to medical floor. Neuro: AAOx3 Cardio: Hemodynamically stable Maintain MAP >65 Pulm: Transitioned from HFNC to NC Continue abx as per ID Continue Tamiflu as per ID, renally dosed Maintain O2 sat > 90% GI: Protonix HHD Nephro: Avoid nephrotoxic medications Renally dosed abx Replenish electrolytes as needed Maintain euvolemia Heme/ID: Daptomycin, Merrem, Doxycycline, Tamiflu Zyvox on hold due to low platelet count Follow cultures IR consulted for removal of port-a-cath Lovenox for DVT PPX [place]ette, PGY-2 <Tyrese Lee B - Last Filed: 09/18/17 16:43> CCU Objective - Vital Signs / Intake & Output Vital Signs (Last 4 hours): Vital Signs Pulse 09/18/17 16:12 104 H Intake and Output (Last 8hrs): Intake & Output 09/18/17 09/18/17 09/18/17 06:59 14:59 22:59 Intake Total 1890 Output Total 1550 Balance 340 Weight 165 lb Intake: IV 1650 Left Forearm 1650 Oral 240 Output: Urine 1550 Urine, Voided 1550 - Medications Active Medications: Active Medications Generic Name Dose Route Start Last Admin Trade Name Freq PRN Reason Stop Dose Admin Acetaminophen 975 mg 09/16/17 16:38 09/17/17 08:10 Tylenol 325mg Tab PO 975 mg ONCE PRN Administration Fever >100.4 F Albuterol/Ipratropium 3 ml 09/17/17 14:00 09/18/17 13:22 Duoneb 3 Mg/0.5 Mg (3 Ml) Ud IH 3 ml [id number] LUZ MARINA Administration Albuterol/Ipratropium 3 ml 09/17/17 08:35 09/17/17 09:07 Duoneb 3 Mg/0.5 Mg (3 Ml) Ud IH 3 ml Q2H PRN Administration Shortness of Breath Budesonide 0.5 mg 09/17/17 20:00 09/18/17 07:33 Pulmicort Respules IH 0.5 mg [id number] LUZ MARINA Administration Enoxaparin Sodium 40 mg 09/18/17 10:30 09/18/17 16:02 Lovenox SC Not Given DAILY LUZ MARINA Protocol Doxycycline Hyclate 100 mg/ 100 mls @ 100 mls/hr 09/17/17 00:17 09/18/17 09: 27 Sodium Chloride IVPB 100 mls/hr Q12 LUZ MARINA Administration Protocol Meropenem 50 mls @ 100 mls/hr 09/17/17 08:15 09/18/17 09:27 Merrem Iv 1 Gm Premix IVPB 100 mls/hr Q12 LUZ MARINA Administration Protocol Linezolid 600 mg in 300 mls @ 200 mls/hr 09/17/17 13:45 09/18/17 09:27 Zyvox 600mg/300ml D5w IVPB 09/24/17 13:46 200 mls/hr Q12 LUZ MARINA Administration Protocol Daptomycin 450 mg/ Sodium 100 mls @ 200 mls/hr 09/18/17 08:30 09/18/17 10:15 Chloride IV 09/23/17 08:31 200 mls/hr Q24H LUZ MARINA Administration Magnesium Oxide 400 mg 09/17/17 10:00 09/18/17 16:04 Mag-Ox PO 400 mg TID LUZ MARINA Administration Methylprednisolone 40 mg 09/18/17 10:00 09/18/17 09:29 Solu-Medrol IVP 40 mg Q12 LUZ MARINA Administration Oseltamivir Phosphate 30 mg 09/17/17 10:00 09/18/17 09:29 Tamiflu Susp PO 30 mg BID LUZ MARINA Administration Protocol Potassium Phos/Sodium Phos 1 pkt 09/16/17 21:45 09/18/17 09:28 Neutra-Phos PO 09/18/17 21:46 1 pkt BID LUZ MARINA Administration - Patient Studies Lab Studies: Lab Studies 09/18/17 09/18/17 09/18/17 Range/Units 08:20 08:20 06:00 WBC (4.5-11.0) 10^3/ul RBC (3.5-6.1) 10^6/uL Hgb (12.0-16.0) g/dL Hct (36.0-48.0) % MCV (80.0-105.0) fl MCH (25.0-35.0) pg MCHC (31.0-37.0) g/dl RDW (11.5-14.5) % Plt Count (120.0-450.0) 10^3/uL Gran % (50.0-68.0) % Lymph % (Auto) (22.0-35.0) % [place] % (Auto) (1.0-6.0) % Eos % (Auto) (1.5-5.0) % Baso % (Auto) (0.0-3.0) % Gran # (1.4-6.5) Lymph # (Auto) (1.2-3.4) [place] # (Auto) (0.1-0.6) Eos # (Auto) (0.0-0.7) Baso # (Auto) (0.0-2.0) K/mm3 ESR 54 H (0.0-20.0) mm/hr pCO2 (35-45) mm/Hg pO2 (80-100) mm/Hg HCO3 (21-28) mmol/L ABG pH (7.35-7.45) ABG Total CO2 (22-28) mmol.L ABG O2 Saturation (95-98) % ABG O2 Content (15-23) ML/dl ABG Base Excess (-2.0-3.0) mmol/L ABG Hemoglobin (11.7-17.4) g/dL ABG Carboxyhemoglobin (0.5-1.5) % POC ABG HHb (Measured) (0-5) % ABG Methemoglobin (0.0-3.0) % ABG O2 Capacity (16-24) mL/dl Hgb O2 Saturation (95.0-98.0) % FiO2 % Sodium 132 (132-148) mmol/L Potassium 3.1 L (3.6-5.0) mmol/L Chloride 95 L (98-107) mmol/L Carbon Dioxide 30 (21-33) mmol/L Anion Gap 11 (10-20) BUN 20 (7-21) mg/dL Creatinine 1.3 H (0.7-1.2) mg/dl Est GFR ( Amer) 50 Est GFR (Non-Af Amer) 42 Random Glucose 124 H (70-110) mg/dL Calcium 9.3 (8.4-10.5) mg/dL Total Bilirubin 0.7 (0.2-1.3) mg/dL AST 30 (14-36) U/L ALT 20 (7-56) U/L Alkaline Phosphatase 116 (38-126) U/L Total Creatine Kinase 21 L (35-230) U/L C-Reactive Protein 188.70 H (0.0-9.9) mg/L Total Protein 6.2 (5.8-8.3) g/dL Albumin 2.9 L (3.0-4.8) g/dL Globulin 3.3 gm/dL Albumin/Globulin Ratio 0.9 L (1.1-1.8) Urine Osmolality (300-1000) mosm/kg Ur L.pneumophila Ag (NEGATIVE) 09/18/17 09/18/17 09/17/17 Range/Units 06:00 05:09 16:04 WBC 11.5 H (4.5-11.0) 10^3/ul RBC 3.44 L (3.5-6.1) 10^6/uL Hgb 9.1 L (12.0-16.0) g/dL Hct 28.0 L (36.0-48.0) % MCV 81.4 (80.0-105.0) fl MCH 26.5 (25.0-35.0) pg MCHC 32.5 (31.0-37.0) g/dl RDW 25.8 H (11.5-14.5) % Plt Count 58 L (120.0-450.0) 10^3/uL Gran % 89.2 H (50.0-68.0) % Lymph % (Auto) 4.2 L (22.0-35.0) % [place] % (Auto) 6.6 H (1.0-6.0) % Eos % (Auto) 0.0 L (1.5-5.0) % Baso % (Auto) 0.0 (0.0-3.0) % Gran # 10.22 H (1.4-6.5) Lymph # (Auto) 0.5 L (1.2-3.4) [place] # (Auto) 0.8 H (0.1-0.6) Eos # (Auto) 0.0 (0.0-0.7) Baso # (Auto) 0.00 (0.0-2.0) K/mm3 ESR (0.0-20.0) mm/hr pCO2 35 (35-45) mm/Hg pO2 166.0 H (80-100) mm/Hg HCO3 26.1 (21-28) mmol/L ABG pH 7.48 H (7.35-7.45) ABG Total CO2 27.2 (22-28) mmol.L ABG O2 Saturation 100.2 H (95-98) % ABG O2 Content 11.7 L (15-23) ML/dl ABG Base Excess 2.5 (-2.0-3.0) mmol/L ABG Hemoglobin 8.3 L (11.7-17.4) g/dL ABG Carboxyhemoglobin 2.4 H (0.5-1.5) % POC ABG HHb (Measured) -0.2 L (0-5) % ABG Methemoglobin 0.9 (0.0-3.0) % ABG O2 Capacity 11.7 L (16-24) mL/dl Hgb O2 Saturation 96.9 (95.0-98.0) % FiO2 35.0 % Sodium (132-148) mmol/L Potassium (3.6-5.0) mmol/L Chloride (98-107) mmol/L Carbon Dioxide (21-33) mmol/L Anion Gap (10-20) BUN (7-21) mg/dL Creatinine (0.7-1.2) mg/dl Est GFR ( Amer) Est GFR (Non-Af Amer) Random Glucose (70-110) mg/dL Calcium (8.4-10.5) mg/dL Total Bilirubin (0.2-1.3) mg/dL AST (14-36) U/L ALT (7-56) U/L Alkaline Phosphatase (38-126) U/L Total Creatine Kinase (35-230) U/L C-Reactive Protein (0.0-9.9) mg/L Total Protein (5.8-8.3) g/dL Albumin (3.0-4.8) g/dL Globulin gm/dL Albumin/Globulin Ratio (1.1-1.8) Urine Osmolality (300-1000) mosm/kg Ur L.pneumophila Ag Negative (NEGATIVE) 09/17/17 Range/Units 16:04 WBC (4.5-11.0) 10^3/ul RBC (3.5-6.1) 10^6/uL Hgb (12.0-16.0) g/dL Hct (36.0-48.0) % MCV (80.0-105.0) fl MCH (25.0-35.0) pg MCHC (31.0-37.0) g/dl RDW (11.5-14.5) % Plt Count (120.0-450.0) 10^3/uL Gran % (50.0-68.0) % Lymph % (Auto) (22.0-35.0) % [place] % (Auto) (1.0-6.0) % Eos % (Auto) (1.5-5.0) % Baso % (Auto) (0.0-3.0) % Gran # (1.4-6.5) Lymph # (Auto) (1.2-3.4) [place] # (Auto) (0.1-0.6) Eos # (Auto) (0.0-0.7) Baso # (Auto) (0.0-2.0) K/mm3 ESR (0.0-20.0) mm/hr pCO2 (35-45) mm/Hg pO2 (80-100) mm/Hg HCO3 (21-28) mmol/L ABG pH (7.35-7.45) ABG Total CO2 (22-28) mmol.L ABG O2 Saturation (95-98) % ABG O2 Content (15-23) ML/dl ABG Base Excess (-2.0-3.0) mmol/L ABG Hemoglobin (11.7-17.4) g/dL ABG Carboxyhemoglobin (0.5-1.5) % POC ABG HHb (Measured) (0-5) % ABG Methemoglobin (0.0-3.0) % ABG O2 Capacity (16-24) mL/dl Hgb O2 Saturation (95.0-98.0) % FiO2 % Sodium (132-148) mmol/L Potassium (3.6-5.0) mmol/L Chloride (98-107) mmol/L Carbon Dioxide (21-33) mmol/L Anion Gap (10-20) BUN (7-21) mg/dL Creatinine (0.7-1.2) mg/dl Est GFR ( Amer) Est GFR (Non-Af Amer) Random Glucose (70-110) mg/dL Calcium (8.4-10.5) mg/dL Total Bilirubin (0.2-1.3) mg/dL AST (14-36) U/L ALT (7-56) U/L Alkaline Phosphatase (38-126) U/L Total Creatine Kinase (35-230) U/L C-Reactive Protein (0.0-9.9) mg/L Total Protein (5.8-8.3) g/dL Albumin (3.0-4.8) g/dL Globulin gm/dL Albumin/Globulin Ratio (1.1-1.8) Urine Osmolality 219 L (300-1000) mosm/kg Ur L.pneumophila Ag (NEGATIVE) Laboratory Results - last 24 hr 09/17/17 09/17/17 09/18/17 16:04 16:04 05:09 WBC RBC Hgb Hct MCV MCH MCHC RDW Plt Count Gran % Lymph % (Auto) [place] % (Auto) Eos % (Auto) Baso % (Auto) Gran # Lymph # (Auto) [place] # (Auto) Eos # (Auto) Baso # (Auto) ESR pCO2 35 pO2 166.0 H HCO3 26.1 ABG pH 7.48 H ABG Total CO2 27.2 ABG O2 Saturation 100.2 H ABG O2 Content 11.7 L ABG Base Excess 2.5 ABG Hemoglobin 8.3 L ABG Carboxyhemoglobin 2.4 H POC ABG HHb (Measured) -0.2 L ABG Methemoglobin 0.9 ABG O2 Capacity 11.7 L Hgb O2 Saturation 96.9 FiO2 35.0 Sodium Potassium Chloride Carbon Dioxide Anion Gap BUN Creatinine Est GFR ( Amer) Est GFR (Non-Af Amer) Random Glucose Calcium Total Bilirubin AST ALT Alkaline Phosphatase Total Creatine Kinase C-Reactive Protein Total Protein Albumin Globulin Albumin/Globulin Ratio Urine Osmolality 219 L Ur L.pneumophila Ag Negative 09/18/17 09/18/17 09/18/17 06:00 06:00 08:20 WBC 11.5 H RBC 3.44 L Hgb 9.1 L Hct 28.0 L MCV 81.4 MCH 26.5 MCHC 32.5 RDW 25.8 H Plt Count 58 L Gran % 89.2 H Lymph % (Auto) 4.2 L [place] % (Auto) 6.6 H Eos % (Auto) 0.0 L Baso % (Auto) 0.0 Gran # 10.22 H Lymph # (Auto) 0.5 L [place] # (Auto) 0.8 H Eos # (Auto) 0.0 Baso # (Auto) 0.00 ESR pCO2 pO2 HCO3 ABG pH ABG Total CO2 ABG O2 Saturation ABG O2 Content ABG Base Excess ABG Hemoglobin ABG Carboxyhemoglobin POC ABG HHb (Measured) ABG Methemoglobin ABG O2 Capacity Hgb O2 Saturation FiO2 Sodium 132 Potassium 3.1 L Chloride 95 L Carbon Dioxide 30 Anion Gap 11 BUN 20 Creatinine 1.3 H Est GFR ( Amer) 50 Est GFR (Non-Af Amer) 42 Random Glucose 124 H Calcium 9.3 Total Bilirubin 0.7 AST 30 ALT 20 Alkaline Phosphatase 116 Total Creatine Kinase 21 L C-Reactive Protein 188.70 H Total Protein 6.2 Albumin 2.9 L Globulin 3.3 Albumin/Globulin Ratio 0.9 L Urine Osmolality Ur L.pneumophila Ag 09/18/17 08:20 WBC RBC Hgb Hct MCV MCH MCHC RDW Plt Count Gran % Lymph % (Auto) [place] % (Auto) Eos % (Auto) Baso % (Auto) Gran # Lymph # (Auto) [place] # (Auto) Eos # (Auto) Baso # (Auto) ESR 54 H pCO2 pO2 HCO3 ABG pH ABG Total CO2 ABG O2 Saturation ABG O2 Content ABG Base Excess ABG Hemoglobin ABG Carboxyhemoglobin POC ABG HHb (Measured) ABG Methemoglobin ABG O2 Capacity Hgb O2 Saturation FiO2 Sodium Potassium Chloride Carbon Dioxide Anion Gap BUN Creatinine Est GFR ( Amer) Est GFR (Non-Af Amer) Random Glucose Calcium Total Bilirubin AST ALT Alkaline Phosphatase Total Creatine Kinase C-Reactive Protein Total Protein Albumin Globulin Albumin/Globulin Ratio Urine Osmolality Ur L.pneumophila Ag Critical Care Progress Note - Nutrition Nutrition: Nutrition Category Date Time Status Heart Healthy Diet [DIET] Diets 09/16/17 Dinner Ordered NPO Diet [DIET] Diets 09/19/17 Breakfast Ordered Attending/Attestation - Attestation I have personally seen and examined this patient.: Yes I have fully participated in the care of the patient.: Yes I have reviewed all pertinent clinical information: Yes Notes (Text): 09/18/17 16:[address] lee note
--- NOTE | 2017-09-18 13:52 | PN ---
DATE: 09/18/2017 SUBJECTIVE: The patient is seen and examined at bedside. She is comfortable. She was talking over the phone with full sentences with somebody without any obvious respiratory distress. She also was in the bathroom without any respiratory distress as well. Night was uneventful. PHYSICAL EXAMINATION: VITAL SIGNS: Heart rate 96, blood pressure 120/64, respiratory rate varies between 26 and 30, oxygen saturation on the monitor 92% on 35% FIO2 and 60 liters per minute of high-flow oxygen. However, on ABG from a few hours ago on the same FIO2, oxygen saturation was 96%, pO2 was 166, pH was 7.48 and pCO2 of 35. ENT: Head and neck atraumatic. LUNGS: Decreased breath sounds bilaterally. HEART: Regular rate and rhythm. S1, S2 distant. ABDOMEN: Soft, nontender and nondistended. MUSCULOSKELETAL: Trace bilateral pedal and ankle edema. NEURO: The patient moves all extremities spontaneously. SKIN: Moist. PSYCH: The patient is alert and oriented x3, comfortable, not in respiratory or otherwise distress. LABORATORY DATA: ABG as above. Sodium 132, potassium 3.1 (supplemented), chloride 95, carbon dioxide 30, BUN 20, creatinine 1.3 down from 1.7, glucose 124. Troponin x2 negative. AST 30, ALT 20, total bilirubin 0.7. Procalcitonin 4.69 up from 3.11. WBC went down to 11.5 from 22.7 two days ago, platelet count 58, hemoglobin 9.1 up from 8.9. INR 1.45. Urine negative for leukocyte esterase and nitrites. Serology positive for influenza type A. MEDICATIONS: Tylenol p.r.n., DuoNeb p.r.n. and every 6 hours on standing basis, Pulmicort 0.5 mg inhaled every 12 hours, Aranesp was given yesterday, doxycycline, meropenem, Tamiflu, phosphorus and potassium supplementation, linezolid. ASSESSMENT AND PLAN: This is a 62-year-old lady who presented with acute influenza A illness, complicated by gram-positive cocci bacteremia. The patient was started on Tamiflu (renally adjusted) and linezolid. Possibility of Port-A-Cath used for chemotherapy being a source of gram-positive cocci in clusters cannot be ruled out. The patient, however, today clinically looks better and improved. I will touch base with Dr. Dez Laird and primary medical doctor about changing the Port-A-Cath. Another potential source for gram-positive cocci in clusters in blood would be post flu pneumonia. It appears that on initial chest x-ray, left lower lobe infiltrate could not be ruled out. However, this area appears a bit better aerated on today's chest x-ray. We will continue to trend procalcitonin. We will continue to follow-up speciations of the blood culture. We will continue target euvolemia, euglycemia, normothermia and oxygen saturation more than 90%. We will continue to wean down FIO2 supplementation and we will try the patient on nasal cannula O2. We will continue with deep venous thrombosis/gastrointestinal prophylaxis. ccm time 40 min Tyrese Lorenzo MD [facility]
--- NOTE | 2017-09-18 15:24 | CP.PCM.CON ---
History of Present Illness - History of Present Illness History of Present Illness: Pt. is a 62 y.o female w/ a PMHx of COPD, lung CA (stage 4), emphysema and renal failure. Pt. was admitted on Friday evening for complaint of SOB and fever. Pt. has a port placed for chemotherapy this past June and states the site has recently become painful. Pt. states before hospitalization she was cleaning around the port with peroxide and noticed "dried blood" and pus. She also stated that "it looked like there was a hole at where the port is." Pt. currently complains of tenderness at incision site. Pt. currently denies fever, chills, SOB, n/v/d and any abd. pain. PMHx- see HPI PSurgHx- Port placement Meds- chart Allergies- chart Hospitalizations- see chart FMhx- see chart Social hx- see chart Physical exam- General- pt. was conversant, comfortable in bed, AAO X 3 + for tenderness at port placement site (L side- above breast bone/ below clavicle region) Labs- Blood culture + for Staph aureus and Influenza A WBC- 22.7 H Plan- Remove port Review of Systems - Constitutional Constitutional: Fever Past Patient History - Infectious Disease Hx of Infectious Diseases: None - Past Social History Smoking Status: Former Smoker - CARDIAC Hx Cardiac Disorders: No - PULMONARY Hx Chronic Obstructive Pulmonary Disease (COPD): Yes - NEUROLOGICAL Hx Neurological Disorder: No - HEENT Hx HEENT Problems: No - RENAL Hx Renal Failure: Yes - ENDOCRINE/METABOLIC Hx Endocrine Disorders: No - HEMATOLOGICAL/ONCOLOGICAL Hx Blood Disorders: Yes Hx Anemia: Yes Hx Chemotherapy: Yes (last dose 18) - INTEGUMENTARY Hx Dermatological Problems: No - MUSCULOSKELETAL/RHEUMATOLOGICAL Hx Musculoskeletal Disorders: No Hx Falls: No - GASTROINTESTINAL Hx Gastrointestinal Disorders: No - GENITOURINARY/GYNECOLOGICAL Hx Genitourinary Disorders: No - PSYCHIATRIC Hx Psychophysiologic Disorder: No Hx Emotional Abuse: No Hx Physical Abuse: No Hx Substance Use: No - SURGICAL HISTORY Other/Comment: Breast reduction. R chest port - ANESTHESIA Hx Anesthesia: Yes Hx Anesthesia Reactions: No Hx Malignant Hyperthermia: No Meds Allergies/Adverse Reactions: Allergies Allergy/AdvReac Type Severity Reaction Status Date / Time No Known Allergies Allergy Verified 09/16/17 16:31 - Medications Medications: Current Medications Acetaminophen (Tylenol 325mg Tab) 975 mg PO ONCE PRN PRN Reason: Fever >100.4 F Last Admin: 09/17/17 08:10 Dose: 975 mg Albuterol/Ipratropium (Duoneb 3 Mg/0.5 Mg (3 Ml) Ud) 3 ml IH [id number] [facility] Last Admin: 09/18/17 13:22 Dose: 3 ml Albuterol/Ipratropium (Duoneb 3 Mg/0.5 Mg (3 Ml) Ud) 3 ml IH Q2H PRN PRN Reason: Shortness of Breath Last Admin: 09/17/17 09:07 Dose: 3 ml Budesonide (Pulmicort Respules) 0.5 mg IH [id number] [facility] Last Admin: 09/18/17 07:33 Dose: 0.5 mg Enoxaparin Sodium (Lovenox) 40 mg SC DAILY LUZ MARINA PRN Reason: Protocol Doxycycline Hyclate 100 mg/ (Sodium Chloride) 100 mls @ 100 mls/hr IVPB Q12 LUZ MARINA PRN Reason: Protocol Last Admin: 09/18/17 09:27 Dose: 100 mls/hr Meropenem (Merrem Iv 1 Gm Premix) 50 mls @ 100 mls/hr IVPB Q12 LUZ MARINA PRN Reason: Protocol Last Admin: 09/18/17 09:27 Dose: 100 mls/hr Linezolid (Zyvox 600mg/300ml D5w) 600 mg in 300 mls @ 200 mls/hr IVPB Q12 LUZ MARINA PRN Reason: Protocol Stop: 09/24/17 13:46 Last Admin: 09/18/17 09:27 Dose: 200 mls/hr Daptomycin 450 mg/ Sodium (Chloride) 100 mls @ 200 mls/hr IV Q24H [facility] Stop: 09/23/17 08:31 Last Admin: 09/18/17 10:15 Dose: 200 mls/hr Magnesium Oxide (Mag-Ox) 400 mg PO TID [facility] Last Admin: 09/18/17 09:29 Dose: 400 mg Methylprednisolone (Solu-Medrol) 40 mg IVP Q12 [facility] Last Admin: 09/18/17 09:29 Dose: 40 mg Oseltamivir Phosphate (Tamiflu Susp) 30 mg PO BID LUZ MARINA PRN Reason: Protocol Last Admin: 09/18/17 09:29 Dose: 30 mg Potassium Phos/Sodium Phos (Neutra-Phos) 1 pkt PO BID LUZ MARINA Stop: 09/18/17 21:46 Last Admin: 09/18/17 09:28 Dose: 1 pkt Physical Exam - Constitutional Appears: No Acute Distress - Head Exam Head Exam: ATRAUMATIC, NORMAL INSPECTION, NORMOCEPHALIC Results - Vital Signs Recent Vital Signs: Last Vital Signs Temp 97.1 F L 09/18/17 11:31 Pulse 112 H 09/18/17 12:15 Resp 30 H 09/18/17 12:15 BP 108/69 09/18/17 12:00 Pulse Ox 97 09/18/17 12:00 - Labs Result Diagrams: 09/18/17 06:00 09/18/17 06:00 Labs: Laboratory Results - last 24 hr 09/17/17 09/17/17 09/17/17 16:04 16:04 16:04 WBC RBC Hgb Hct MCV MCH MCHC RDW Plt Count Gran % Lymph % (Auto) [place] % (Auto) Eos % (Auto) Baso % (Auto) Gran # Lymph # (Auto) [place] # (Auto) Eos # (Auto) Baso # (Auto) ESR pCO2 pO2 HCO3 ABG pH ABG Total CO2 ABG O2 Saturation ABG O2 Content ABG Base Excess ABG Hemoglobin ABG Carboxyhemoglobin POC ABG HHb (Measured) ABG Methemoglobin ABG O2 Capacity Hgb O2 Saturation FiO2 Sodium Potassium Chloride Carbon Dioxide Anion Gap BUN Creatinine Est GFR ( Amer) Est GFR (Non-Af Amer) Random Glucose Calcium Total Bilirubin AST ALT Alkaline Phosphatase Total Creatine Kinase C-Reactive Protein Total Protein Albumin Globulin Albumin/Globulin Ratio Urine Osmolality 219 L Ur Random Sodium 28 Ur L.pneumophila Ag Negative 09/18/17 09/18/17 09/18/17 05:09 06:00 06:00 WBC 11.5 H RBC 3.44 L Hgb 9.1 L Hct 28.0 L MCV 81.4 MCH 26.5 MCHC 32.5 RDW 25.8 H Plt Count 58 L Gran % 89.2 H Lymph % (Auto) 4.2 L [place] % (Auto) 6.6 H Eos % (Auto) 0.0 L Baso % (Auto) 0.0 Gran # 10.22 H Lymph # (Auto) 0.5 L [place] # (Auto) 0.8 H Eos # (Auto) 0.0 Baso # (Auto) 0.00 ESR pCO2 35 pO2 166.0 H HCO3 26.1 ABG pH 7.48 H ABG Total CO2 27.2 ABG O2 Saturation 100.2 H ABG O2 Content 11.7 L ABG Base Excess 2.5 ABG Hemoglobin 8.3 L ABG Carboxyhemoglobin 2.4 H POC ABG HHb (Measured) -0.2 L ABG Methemoglobin 0.9 ABG O2 Capacity 11.7 L Hgb O2 Saturation 96.9 FiO2 35.0 Sodium 132 Potassium 3.1 L Chloride 95 L Carbon Dioxide 30 Anion Gap 11 BUN 20 Creatinine 1.3 H Est GFR ( Amer) 50 Est GFR (Non-Af Amer) 42 Random Glucose 124 H Calcium 9.3 Total Bilirubin 0.7 AST 30 ALT 20 Alkaline Phosphatase 116 Total Creatine Kinase C-Reactive Protein Total Protein 6.2 Albumin 2.9 L Globulin 3.3 Albumin/Globulin Ratio 0.9 L Urine Osmolality Ur Random Sodium Ur L.pneumophila Ag 09/18/17 09/18/17 08:20 08:20 WBC RBC Hgb Hct MCV MCH MCHC RDW Plt Count Gran % Lymph % (Auto) [place] % (Auto) Eos % (Auto) Baso % (Auto) Gran # Lymph # (Auto) [place] # (Auto) Eos # (Auto) Baso # (Auto) ESR 54 H pCO2 pO2 HCO3 ABG pH ABG Total CO2 ABG O2 Saturation ABG O2 Content ABG Base Excess ABG Hemoglobin ABG Carboxyhemoglobin POC ABG HHb (Measured) ABG Methemoglobin ABG O2 Capacity Hgb O2 Saturation FiO2 Sodium Potassium Chloride Carbon Dioxide Anion Gap BUN Creatinine Est GFR ( Amer) Est GFR (Non-Af Amer) Random Glucose Calcium Total Bilirubin AST ALT Alkaline Phosphatase Total Creatine Kinase 21 L C-Reactive Protein 188.70 H Total Protein Albumin Globulin Albumin/Globulin Ratio Urine Osmolality Ur Random Sodium Ur L.pneumophila Ag Assessment & Plan - Assessment and Plan (Free Text) Assessment: This is a 62 y.o female w/ a PMHx of COPD, lung CA (stage 4), emphysema, and renal failure. Pt. was found to have tenderness at site of port. BLood cx showed staph aureus infection, confirming septicemia dx. Plan: OR tomorrow for POrt removal 1130 Pm NPO aftermidnight ABX per ID Seen and examined with Dr. Velázquez
[2017-09-18] MEDS: Enoxaparin 40 mg Syringe SC SCH (16:02)
--- NOTE | 2017-09-18 16:52 | US ---
PROCEDURE: Right Upper Extremity Venous Doppler HISTORY: rule out DVT COMPARISON: None available. TECHNIQUE: Right upper extremity deep veins, including the lower internal jugular, subclavian, axillary and brachial veins, were evaluated flow, compressibility and respiratory phasicity. FINDINGS: Normal flow, compressibility and respiratory phasicity was observed in the right upper extremity deep veins. IMPRESSION: No evidence of deep venous thrombosis.
--- NOTE | 2017-09-18 18:25 | CARD ---
APPROVED REPORT EXAM: Two-dimensional and M-mode echocardiogram with Doppler and color Doppler. INDICATION Infection:Rule out subacute bacterial endocarditis 2D DIMENSIONS Left Atrium (2D)3.8 (1.6-4.0cm)IVSd1.0 (0.7-1.1cm) LVDd4.5 (3.9-5.9cm)PWd1.0 (0.7-1.1cm) LVDs3.2 (2.5-4.0cm)FS (%) 28.1 % LVEF (%)54.5 (>50%) M-Mode DIMENSIONS Aortic Root3.30 (2.2-3.7cm)Aortic Cusp Exc.2.00 (1.5-2.0cm) Aortic Valve AoV Peak Zhcgnyen915.0cm/Selvin Peak GR.11mmHg Mitral Valve MV E Hziygigu467.0cm/sMV A Zijspkib050.0cm/sE/A ratio0.9 TDI E/Lateral E'0.0E/Medial E'0.0 Tricuspid Valve TR Peak [id number]/sRAP [id number] Peak Gr.31mmHg [id number] LEFT VENTRICLE The left ventricle is normal size. There is normal left ventricular wall thickness. The left ventricular function is normal. The left ventricular ejection fraction is within the normal range. There is normal LV segmental wall motion. Transmitral Doppler flow pattern is Grade I-abnormal relaxation pattern. RIGHT VENTRICLE The right ventricle is normal size. There is normal right ventricular wall thickness. The right ventricular systolic function is normal. ATRIA The left atrium size is normal. The right atrium size is normal. AORTIC VALVE The aortic valve is normal in structure. No aortic regurgitation is present. There is no aortic valvular stenosis. MITRAL VALVE The mitral valve is mildly thickened. Mitral regurgitation is trace to mild. TRICUSPID VALVE There is mild tricuspid regurgitation. There is mild pulmonary hypertension. GREAT VESSELS The aortic root displays mild to moderate sclerocalcific changes of the aortic root. <Conclusion> The left ventricle is normal size. There is normal left ventricular wall thickness. The left ventricular function is normal. The left ventricular ejection fraction is within the normal range. There is normal LV segmental wall motion. Transmitral Doppler flow pattern is Grade I-abnormal relaxation pattern. Mitral regurgitation is trace to mild. There is mild tricuspid regurgitation. There is mild pulmonary hypertension. No vegitation seen
--- NOTE | 2017-09-19 00:52 | PN ---
DATE: SUBJECTIVE: The patient has no complaints of any chest pain. No shortness of breath. No headaches. She states she is feeling better. PHYSICAL EXAMINATION VITAL SIGNS: Temperature is 97.5, pulse of 104, blood pressure is 108/69, respirations 20. GENERAL: The patient is lying in bed, flat, comfortable. HEENT: No oral lesion. Anicteric sclerae. Moist mucosa. NECK: No JVD, adenopathy, or thyromegaly. CARDIOVASCULAR: S1 and S2, regular. No murmurs, rubs, or gallops. LUNGS: Clear to auscultation bilaterally. No wheeze, rales, or rhonchi. ABDOMEN: Bowel sounds are positive, soft, nontender, and nondistended. EXTREMITIES: No cyanosis, clubbing, or edema. LABS: White count of 11.5, hemoglobin 9.1, creatinine is 1.3, potassium is 3.1. Right upper extremity ultrasound done showed no evidence of DVT. Echocardiogram shows normal LV function. ASSESSMENT: 1. Sepsis secondary to Staphylococcus aureus. 2. Hospital-acquired pneumonia. 3. Non-small cell lung cancer. 4. Chronic obstructive pulmonary disease. 5. 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 6. Port. PLAN: The patient is currently on daptomycin for antibiotics. She is going to continue with doxycycline. The patient is on antibiotics. She is going to be on prednisone. The patient is on Tamiflu. She has a port that is most likely infected. The patient will need a port removal. Alejandro Miranda MD
[2017-09-19] MEDS: Albuterol-Ipratrop 3 mg / 0.5 (3 ml) UD IH SCH ×4 (01:59→22:22)
[2017-09-19 06:41] LABS: GRAN # 6.19 (1.4-6.5); GRAN % 88.2 % (50.0-68.0); HEMOGLOBIN 9.1 g/dL (12.0-16.0); LYMPH # 0.5 (1.2-3.4); LYMPH % 7.5 % (22.0-35.0); MEAN CORPUSCULAR HEMOGLOBIN 26.4 pg (25.0-35.0); MEAN CORPUSCULAR HGB CONC 32.2 g/dl (31.0-37.0); MEAN PLATELET VOLUME 8.9 fl (7.0-11.0); MONO # 0.3 (0.1-0.6); MONO % 4.3 % (1.0-6.0); RBC 3.45 10^6/uL (3.5-6.1); RED CELL DISTRIBUTION WIDTH 25.9 % (11.5-14.5)
[2017-09-19 07:04] LABS: ALB/GLOB RATIO 0.9 (1.1-1.8); ALBUMIN 3.2 g/dL (3.0-4.8); CALCIUM 9.5 mg/dL (8.4-10.5)
[2017-09-19] MEDS: Budesonide 0.5 mg/2 ml Inhal Susp UD IH SCH ×2 (07:30→22:22)
--- NOTE | 2017-09-19 08:53 | PN ---
DATE: 09/19/2017 PULMONARY NOTE SUBJECTIVE: The patient appears comfortable this morning. She is not short of breath at rest. PHYSICAL EXAMINATION VITAL SIGNS: Temperature is 97.7, pulse is 94, respirations 18/20, blood pressure 108/56. Oxygen saturation on nasal cannula is 95%. HEENT: Normocephalic, atraumatic. No JVD. CARDIOVASCULAR: Positive S1, S2. No S3 gallop. LUNGS: Decreased breath sounds at the bases. Less rhonchi. No wheezing this morning. EXTREMITIES: Positive for edema. No cyanosis, no clubbing. Calves are nontender to palpation. GI: Abdomen is soft, nontender and nondistended. Bowel sounds are positive. SKIN: No acute rash. NEUROLOGIC: Limited at the present time. PERTINENT LABORATORY DATA: Chest x-ray was done this morning and reviewed. It is not significantly changed from the film done yesterday. Blood cultures are positive for Staphylococcus aureus. CBC: White count 7.0, hemoglobin 9.1, hematocrit 28.3, platelets of 92,000. IMPRESSION: 1. Staphylococcus sepsis. Rule out Port-A-Cath infection. 2. Advanced chronic obstructive pulmonary disease, on home oxygen. 3. Advanced non-small cell cancer of the left lung. 4. Bronchospasm - decreased. 5. Anemia. 6. Thrombocytopenia. PLAN: The patient appears comfortable this morning. She is not short of breath at rest. Again, she does get very anxious at times. However, she does state to feeling much, much better this morning. I did discuss the case with the night nurse at length. The night nurse stated that the patient had a very good night. The night nurse also confirms that the patient is for the operating room later this morning - for Port-A-Cath removal. I did review the chest x-ray as above. There are no significant changes noted. On physical exam, the patient's bronchospasm is significantly less. In addition, the alveolar-arterial gradient is also much less. I will continue with the current nebulizer treatments and decrease the intravenous steroids this morning. The patient remains on antibiotic therapy - as per Infectious Disease. The temperatures have now fully resolved. The leukocytosis has also fully resolved. Clinical status of the patient is significantly improved - compared to the initial presentation. However, again, her overall status/prognosis does appear poor. I will discuss the above with the entire ICU team in the next few moments. I will also discuss the above with the attending physician. Amadou Mueller MD [facility]
--- NOTE | 2017-09-19 09:03 | PN ---
DATE: SUBJECTIVE: The patient has no complaints of any chest pain. No shortness of breath. She states she is feeling better. She has no headaches. She states she is eating better. PHYSICAL EXAMINATION VITAL SIGNS: Temperature is 97.7, pulse of 104, blood pressure is 108/56, respirations 20. GENERAL: The patient is lying in bed, flat, comfortable. HEENT: No oral lesion. Anicteric sclerae. Moist mucosa. NECK: No JVD, adenopathy, or thyromegaly. CARDIOVASCULAR: S1 and S2, regular. No murmurs, rubs, or gallops. LUNGS: Clear to auscultation bilaterally. No wheeze, rales, or rhonchi. ABDOMEN: Bowel sounds are positive. Soft, nontender and nondistended. EXTREMITIES: No cyanosis, clubbing or edema. LABORATORY DATA: Yesterday's potassium was 3.1. Labs from this morning is pending. ASSESSMENT 1. Sepsis secondary to Staphylococcus aureus. 2. Infected Port-A-Cath. 3. [id number] lung cancer. 4. Hospital-acquired pneumonia. 5. Chronic obstructive pulmonary disease. 6. 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 PLAN: The patient is currently comfortable. She has an infected port, that will need to be removed. I did speak to Dr. Irizarry who is scheduling the patient today. The patient has Staph aureus infection and is on daptomycin by Infectious Disease. The patient is also on doxycycline for antibiotics. The patient on meropenem for antibiotics. She is going to continue with Solu-Medrol. She is being followed by Pulmonary. The patient is currently n.p.o. for her procedure. Alejandro Miranda MD
[2017-09-19] MEDS: Magnesium Oxide 400 mg Tab UD PO SCH ×3 (09:42→22:12)
[2017-09-19] MEDS: Meropenem IV 1 gm in NS 50 ML IVPB SCH ×2 (09:42→22:11)
[2017-09-19] MEDS: MethylPREDNISolone 40 mg Vial IVP SCH ×2 (09:43→22:05)
--- NOTE | 2017-09-19 09:48 | RAD ---
HISTORY: follow up COMPARISON: 09/18/2017 FINDINGS: LUNGS: There is focal consolidation at the left lung base. This is unchanged. Chronic interstitial changes are seen. PLEURA: No significant pleural effusion identified, no pneumothorax apparent. CARDIOVASCULAR: Normal. OSSEOUS STRUCTURES: No significant abnormalities. VISUALIZED UPPER ABDOMEN: Normal. OTHER FINDINGS: None. IMPRESSION: There is focal consolidation at the left lung base. This is unchanged. Chronic interstitial changes are seen.
--- NOTE | 2017-09-19 10:27 | CP.PCM.PN ---
Subjective - Date & Time of Evaluation Date of Evaluation: 09/19/17 Time of Evaluation: 08:10 - Subjective Subjective: Patient is planned for removal of port today, no fevers, still with pain along the port area. Objective - Vital Signs/Intake and Output Vital Signs (last 24 hours): Temp Pulse Resp BP Pulse Ox 97.7 F 104 H 38 H 108/56 L 91 L 09/19/17 04:00 09/19/17 04:59 09/19/17 04:59 09/19/17 04:59 09/19/17 04:59 Intake and Output: 09/18/17 09/19/17 18:59 06:59 Intake Total 1350 Output Total 1100 Balance 250 - Medications Medications: Current Medications Acetaminophen (Tylenol 325mg Tab) 975 mg PO ONCE PRN PRN Reason: Fever >100.4 F Last Admin: 09/17/17 08:10 Dose: 975 mg Albuterol/Ipratropium (Duoneb 3 Mg/0.5 Mg (3 Ml) Ud) 3 ml IH [id number] [facility] Last Admin: 09/19/17 01:59 Dose: Not Given Albuterol/Ipratropium (Duoneb 3 Mg/0.5 Mg (3 Ml) Ud) 3 ml IH Q2H PRN PRN Reason: Shortness of Breath Last Admin: 09/17/17 09:07 Dose: 3 ml Budesonide (Pulmicort Respules) 0.5 mg IH [id number] [facility] Last Admin: 09/18/17 20:25 Dose: 0.5 mg Enoxaparin Sodium (Lovenox) 40 mg SC DAILY LUZ MARINA PRN Reason: Protocol Last Admin: 09/18/17 16:02 Dose: Not Given Doxycycline Hyclate 100 mg/ (Sodium Chloride) 100 mls @ 100 mls/hr IVPB Q12 LUZ MARINA PRN Reason: Protocol Last Admin: 09/18/17 22:39 Dose: 100 mls/hr Meropenem (Merrem Iv 1 Gm Premix) 50 mls @ 100 mls/hr IVPB Q12 LUZ MARINA PRN Reason: Protocol Last Admin: 09/18/17 22:36 Dose: 100 mls/hr Linezolid (Zyvox 600mg/300ml D5w) 600 mg in 300 mls @ 200 mls/hr IVPB Q12 LUZ MARINA PRN Reason: Protocol Stop: 09/24/17 13:46 Last Admin: 09/18/17 09:27 Dose: 200 mls/hr Daptomycin 450 mg/ Sodium (Chloride) 100 mls @ 200 mls/hr IV Q24H [facility] Stop: 09/23/17 08:31 Last Admin: 09/18/17 10:15 Dose: 200 mls/hr Magnesium Oxide (Mag-Ox) 400 mg PO TID [facility] Last Admin: 09/18/17 18:00 Dose: 400 mg Methylprednisolone (Solu-Medrol) 40 mg IVP Q12 [facility] Last Admin: 09/18/17 22:36 Dose: 40 mg Oseltamivir Phosphate (Tamiflu Susp) 30 mg PO BID LUZ MARINA PRN Reason: Protocol Last Admin: 09/18/17 18:12 Dose: 30 mg - Labs Labs: 09/18/17 06:00 09/18/17 06:00 PT 16.7 SECONDS (9.4-12.5) H 09/16/17 18:00 INR 1.45 (0.93-1.08) H 09/16/17 18:00 APTT 29.6 Seconds (25.1-36.5) 09/16/17 18:00 - Constitutional Appears: Chronically Ill - Head Exam Head Exam: NORMAL INSPECTION - ENT Exam ENT Exam: Mucous Membranes Moist - Neck Exam Neck Exam: absent: Meningismus - Respiratory Exam Respiratory Exam: Decreased Breath Sounds Additional comments: right chest wall port in place - Cardiovascular Exam Cardiovascular Exam: +S1, +S2 - GI/Abdominal Exam GI & Abdominal Exam: Soft. 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
[2017-09-19] MEDS ORDERED: Lidocaine 1% Inj (20ml) ONE (11:04)
[2017-09-19] MEDS ORDERED: Propofol 10 mg/ml Inj (20 ML) ONE ×2 (11:10→12:38)
[2017-09-19] MEDS ORDERED: Midazolam 2 MG/2 ML VIAL ONE (11:10)
[2017-09-19] MEDS ORDERED: Bupivacaine 0.5% Inj(30mL) ONE (12:35)
[2017-09-19] MEDS ORDERED: HYDROmorphone 0.5 mg/0.5 ml ISec IVP PRN (13:09)
[2017-09-19] MEDS ORDERED: Lactated Ringer's 1,000 ML IV SCH (13:15)
--- NOTE | 2017-09-19 13:16 | PCM.SURG1 ---
Surgeon's Initial Post Op Note - Surgeon's Notes Surgeon: Dr. Irizarry Metal Stamping Machine Operator: annalisa Calvert PGY2, John PGY3 Type of Anesthesia: IV Sedation, Local Pre-Operative Diagnosis: Bacteremia Operative Findings: R chest port Post-Operative Diagnosis: Same Operation Performed: Removal of port Specimen/Specimens Removed: Port-a-cath Estimated Blood Loss: EBL {In ML}: 5 Blood Products Given: N/A Post-Op Condition: Good Date of Surgery/Procedure: 09/19/17 Time of Surgery/Procedure: 13:16
--- NOTE | 2017-09-19 13:37 | RAD ---
HISTORY: portacath removal COMPARISON: Earlier same day FINDINGS: LUNGS: Right-sided Port-A-Cath has been removed. There is no evidence of pneumothorax. Persistent infiltrate at the left lung base PLEURA: No significant pleural effusion identified, no pneumothorax apparent. CARDIOVASCULAR: Normal. OSSEOUS STRUCTURES: No significant abnormalities. VISUALIZED UPPER ABDOMEN: Normal. OTHER FINDINGS: None. IMPRESSION: Right-sided Port-A-Cath has been removed. No evidence of pneumothorax
[2017-09-19] MEDS: ceFAZolin 2 GM in Sodium Chloride 0.9% 100 ML IVPB SCH ×2 (16:13→22:56)
[2017-09-19 18:00] VITALS: RESP 20
[2017-09-20] MEDS: Albuterol-Ipratrop 3 mg / 0.5 (3 ml) UD IH SCH ×4 (03:25→20:24)
[2017-09-20] MEDS: ceFAZolin 2 GM in Sodium Chloride 0.9% 100 ML IVPB SCH ×3 (06:39→21:54)
[2017-09-20 07:37] LABS: BASO # 0.01 K/mm3 (0.0-2.0); BASO % 0.1 % (0.0-3.0); GRAN # 7.44 (1.4-6.5); HEMOGLOBIN 9.5 g/dL (12.0-16.0); LYMPH # 1.2 (1.2-3.4); MEAN CELL VOLUME 83.7 fl (80.0-105.0); MEAN CORPUSCULAR HEMOGLOBIN 26.2 pg (25.0-35.0); MEAN CORPUSCULAR HGB CONC 31.3 g/dl (31.0-37.0); MEAN PLATELET VOLUME 8.4 fl (7.0-11.0); MONO # 0.7 (0.1-0.6); MONO % 7.9 % (1.0-6.0); RBC 3.63 10^6/uL (3.5-6.1); RED CELL DISTRIBUTION WIDTH 25.9 % (11.5-14.5); WHITE BLOOD COUNT 9.4 10^3/ul (4.5-11.0)
[2017-09-20 07:49] LABS: ALBUMIN 3.3 g/dL (3.0-4.8); CALCIUM 9.7 mg/dL (8.4-10.5)
[2017-09-20] MEDS: Budesonide 0.5 mg/2 ml Inhal Susp UD IH SCH ×2 (08:03→20:24)
[2017-09-20] MEDS: Magnesium Oxide 400 mg Tab UD PO SCH ×3 (09:14→17:40)
[2017-09-20] MEDS: Enoxaparin 40 mg Syringe SC SCH (09:14)
[2017-09-20] MEDS: MethylPREDNISolone 40 mg Vial IVP SCH ×2 (09:15→21:51)
[2017-09-20] MEDS: Meropenem IV 1 gm in NS 50 ML IVPB SCH ×2 (09:15→21:52)
--- NOTE | 2017-09-20 09:19 | CP.PCM.PN ---
Subjective - Date & Time of Evaluation Date of Evaluation: 09/20/17 Time of Evaluation: 07:20 - Subjective Subjective: General Surgery- Dr. Irizarry Pt seen and examined at bedside this AM. In good spirits. Denies pain around incision site. Dressing C/D/I. Denies fevers, chills, nausea, vomiting, diarrhea. Objective - Vital Signs/Intake and Output Vital Signs (last 24 hours): Temp Pulse Resp BP Pulse Ox 98.3 F 109 H 20 125/85 92 L 09/20/17 06:00 09/20/17 06:00 09/20/17 06:00 09/20/17 06:00 09/20/17 06:00 Intake and Output: 09/20/17 09/20/17 06:59 18:59 Intake Total 1190 Balance 1190 - Medications Medications: Current Medications Acetaminophen (Tylenol 325mg Tab) 975 mg PO ONCE PRN PRN Reason: Fever >100.4 F Last Admin: 09/17/17 08:10 Dose: 975 mg Albuterol/Ipratropium (Duoneb 3 Mg/0.5 Mg (3 Ml) Ud) 3 ml IH [id number] [facility] Last Admin: 09/20/17 08:03 Dose: 3 ml Albuterol/Ipratropium (Duoneb 3 Mg/0.5 Mg (3 Ml) Ud) 3 ml IH Q2H PRN PRN Reason: Shortness of Breath Last Admin: 09/17/17 09:07 Dose: 3 ml Budesonide (Pulmicort Respules) 0.5 mg IH [id number] [facility] Last Admin: 09/20/17 08:03 Dose: 0.5 mg Enoxaparin Sodium (Lovenox) 40 mg SC DAILY [facility] PRN Reason: Protocol Last Admin: 09/18/17 16:02 Dose: Not Given Doxycycline Hyclate 100 mg/ (Sodium Chloride) 100 mls @ 100 mls/hr IVPB Q12 [facility] PRN Reason: Protocol Last Admin: 09/20/17 00:00 Dose: 100 mls/hr Meropenem (Merrem Iv 1 Gm Premix) 50 mls @ 100 mls/hr IVPB Q12 [facility] PRN Reason: Protocol Last Admin: 09/19/17 22:11 Dose: 100 mls/hr Linezolid (Zyvox 600mg/300ml D5w) 600 mg in 300 mls @ 200 mls/hr IVPB Q12 [facility] PRN Reason: Protocol Stop: 09/24/17 13:46 Last Admin: 09/18/17 09:27 Dose: 200 mls/hr Cefazolin Sodium 2 gm/ Sodium (Chloride) 100 mls @ 200 mls/hr IVPB Q8 [facility] PRN Reason: Protocol Last Admin: 09/20/17 06:39 Dose: 200 mls/hr Magnesium Oxide (Mag-Ox) 400 mg PO TID [facility] Last Admin: 09/19/17 22:12 Dose: 400 mg Methylprednisolone (Solu-Medrol) 30 mg IVP Q12 [facility] Last Admin: 09/19/17 22:05 Dose: 30 mg Ondansetron HCl (Zofran Inj) 4 mg IVP ONCE PRN PRN Reason: Nausea/Vomiting Oseltamivir Phosphate (Tamiflu) 30 mg PO DAILY [facility] PRN Reason: Protocol Last Admin: 09/19/17 09:49 Dose: 30 mg - Labs Labs: 09/20/17 07:00 09/20/17 07:00 PT 16.7 SECONDS (9.4-12.5) H 09/16/17 18:00 INR 1.45 (0.93-1.08) H 09/16/17 18:00 APTT 29.6 Seconds (25.1-36.5) 09/16/17 18:00 - Constitutional Appears: Non-toxic, No Acute Distress - Head Exam Head Exam: ATRAUMATIC - Eye Exam Eye Exam: EOMI - ENT Exam ENT Exam: Mucous Membranes Moist - Respiratory Exam Respiratory Exam: NORMAL BREATHING PATTERN. absent: Accessory Muscle Use, Respiratory Distress - Cardiovascular Exam Cardiovascular Exam: +S1, +S2. absent: Bradycardia, Tachycardia - GI/Abdominal Exam GI & Abdominal Exam: Soft. absent: Firm, Guarding, Rigid, Tenderness - Extremities Exam Additional comments: RUE dressing site C/D/I No strike through - Neurological Exam Neurological Exam: Alert, Awake, Oriented x3 - Skin Skin Exam: Intact, Warm Assessment and Plan - Assessment and Plan (Free Text) Assessment: 62F w/ bacteremia s/p removal of portacath POD#1 Plan: - Can remove dressing tomorrow - c/w IV Abx - will await for bacteremia to clear prior to new port placement - no further acute surgical intervention at this time - reconsult as needed - discussed w/ [facility]
--- NOTE | 2017-09-20 12:25 | CP.PCM.PN ---
Subjective - Date & Time of Evaluation Date of Evaluation: 09/20/17 Time of Evaluation: 10:55 - Subjective Subjective: Feeling better, had port removed yesterday, no fevers, no nausea, no diarrhea, breathing better. Objective - Vital Signs/Intake and Output Vital Signs (last 24 hours): Temp Pulse Resp BP Pulse Ox 98.3 F 109 H 20 125/85 92 L 09/20/17 06:00 09/20/17 06:00 09/20/17 06:00 09/20/17 06:00 09/20/17 06:00 Intake and Output: 09/20/17 09/20/17 06:59 18:59 Intake Total 1190 Balance 1190 - Medications Medications: Current Medications Acetaminophen (Tylenol 325mg Tab) 975 mg PO ONCE PRN PRN Reason: Fever >100.4 F Last Admin: 09/17/17 08:10 Dose: 975 mg Albuterol/Ipratropium (Duoneb 3 Mg/0.5 Mg (3 Ml) Ud) 3 ml IH [id number] [facility] Last Admin: 09/20/17 03:25 Dose: Not Given Albuterol/Ipratropium (Duoneb 3 Mg/0.5 Mg (3 Ml) Ud) 3 ml IH Q2H PRN PRN Reason: Shortness of Breath Last Admin: 09/17/17 09:07 Dose: 3 ml Budesonide (Pulmicort Respules) 0.5 mg IH [id number] [facility] Last Admin: 09/19/17 22:22 Dose: 0.5 mg Enoxaparin Sodium (Lovenox) 40 mg SC DAILY [facility] PRN Reason: Protocol Last Admin: 09/18/17 16:02 Dose: Not Given Doxycycline Hyclate 100 mg/ (Sodium Chloride) 100 mls @ 100 mls/hr IVPB Q12 [facility] PRN Reason: Protocol Last Admin: 09/20/17 00:00 Dose: 100 mls/hr Meropenem (Merrem Iv 1 Gm Premix) 50 mls @ 100 mls/hr IVPB Q12 [facility] PRN Reason: Protocol Last Admin: 09/19/17 22:11 Dose: 100 mls/hr Linezolid (Zyvox 600mg/300ml D5w) 600 mg in 300 mls @ 200 mls/hr IVPB Q12 [facility] PRN Reason: Protocol Stop: 09/24/17 13:46 Last Admin: 09/18/17 09:27 Dose: 200 mls/hr Cefazolin Sodium 2 gm/ Sodium (Chloride) 100 mls @ 200 mls/hr IVPB Q8 [facility] PRN Reason: Protocol Last Admin: 09/20/17 06:39 Dose: 200 mls/hr Magnesium Oxide (Mag-Ox) 400 mg PO TID [facility] Last Admin: 09/19/17 22:12 Dose: 400 mg Methylprednisolone (Solu-Medrol) 30 mg IVP Q12 [facility] Last Admin: 09/19/17 22:05 Dose: 30 mg Ondansetron HCl (Zofran Inj) 4 mg IVP ONCE PRN PRN Reason: Nausea/Vomiting Oseltamivir Phosphate (Tamiflu) 30 mg PO DAILY [facility] PRN Reason: Protocol Last Admin: 09/19/17 09:49 Dose: 30 mg - Labs Labs: 09/20/17 07:00 09/20/17 07:00 PT 16.7 SECONDS (9.4-12.5) H 09/16/17 18:00 INR 1.45 (0.93-1.08) H 09/16/17 18:00 APTT 29.6 Seconds (25.1-36.5) 09/16/17 18:00 - Constitutional Appears: Chronically Ill - Head Exam Head Exam: NORMAL INSPECTION - ENT Exam ENT Exam: Mucous Membranes Moist - Neck Exam Neck Exam: absent: Meningismus - Respiratory Exam Respiratory Exam: Decreased Breath Sounds, Rales (scattered) - Cardiovascular Exam Cardiovascular Exam: +S1, +S2 - GI/Abdominal Exam GI & Abdominal Exam: Soft. 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
--- NOTE | 2017-09-20 12:52 | PN ---
DATE: 09/20/2017 PULMONARY PROGRESS NOTE SUBJECTIVE: The patient is resting in bed. She is somewhat tachypneic, but does not appear to be ill. RN reports that this is her normal status. No additional symptoms appeared to be present at this time. PHYSICAL EXAMINATION: VITAL SIGNS: Stable. Temperature 98.2, actually pulse 88, respiratory rate is 18, pressure 110/70, O2 saturation on oxygen 95%. HEENT: Normocephalic, atraumatic. No JVD. No bruit. No masses. CARDIOVASCULAR: Regular rhythm. S1 and S2 without murmur, gallop or rub. LUNGS: Global decrease in breath sounds. Minimal rhonchi noted. No wheezing appreciated. ABDOMEN: Soft. Bowel sounds are normoactive without mass, guarding or organomegaly. EXTREMITIES: Reveal no clubbing or cyanosis. There is trace edema. There is no Homans' sign. SKIN: No rash or excoriation. NEUROLOGIC: Unable to fully evaluate. LYMPHADENOPATHY: No lymph nodes are palpated in the supraclavicular notch nor in the cervical, inguinal or axillary areas. LABORATORY DATA: Chest x-ray from yesterday shows mild pulmonary vascular congestion without change. Blood culture are reviewed, positive for Staph aureus. Microbiogram pending. CLINICAL IMPRESSION: 1. Staphylococcus sepsis. 2. Chronic obstructive pulmonary disease. 3. Chronic hypoxemia. 4. Advanced eky-pzucy-cocu carcinoma of the left lung. 5. Resolved bronchospasm. 6. Thrombocytopenia, in resolution. PLAN: Continue vigorous supportive care. No acute intervention is necessary today. Continue antibiotics as per Infectious Disease. Monitor temperature curve and white counts. Follow closely as required. Overall status remains guarded. Vigorous supportive care is essential. Thank you for the opportunity to follow this patient. Brandon Daniel MD
[2017-09-21] MEDS: Albuterol-Ipratrop 3 mg / 0.5 (3 ml) UD IH SCH ×4 (01:30→20:07)
[2017-09-21] MEDS: ceFAZolin 2 GM in Sodium Chloride 0.9% 100 ML IVPB SCH ×3 (05:36→21:02)
[2017-09-21] MEDS: Budesonide 0.5 mg/2 ml Inhal Susp UD IH SCH ×2 (07:16→20:07)
[2017-09-21] MEDS: Meropenem IV 1 gm in NS 50 ML IVPB SCH ×2 (09:54→21:03)
[2017-09-21] MEDS: MethylPREDNISolone 40 mg Vial IVP SCH ×2 (09:55→21:03)
[2017-09-21] MEDS: Magnesium Oxide 400 mg Tab UD PO SCH ×3 (09:57→17:55)
[2017-09-21] MEDS: Enoxaparin 40 mg Syringe SC SCH (09:58)
[2017-09-21] MEDS ORDERED: Darbepoetin Alfa 100 mcg/ml Inj SC ONE (10:17)
--- NOTE | 2017-09-21 12:24 | CP.PCM.PN ---
Subjective - Date & Time of Evaluation Date of Evaluation: 09/21/17 Time of Evaluation: 11:15 - Subjective Subjective: No fevers, not in distress. Feeling better, no chills, no nausea, no diarrhea. Objective - Vital Signs/Intake and Output Vital Signs (last 24 hours): Temp Pulse Resp BP Pulse Ox 98 F 105 H 20 138/89 94 L 09/20/17 21:56 09/20/17 21:56 09/20/17 21:56 09/20/17 21:56 09/20/17 21:56 Intake and Output: 09/21/17 09/21/17 06:59 18:59 Intake Total 1160 Output Total 0 Balance 1160 - Medications Medications: Current Medications Acetaminophen (Tylenol 325mg Tab) 975 mg PO ONCE PRN PRN Reason: Fever >100.4 F Last Admin: 09/17/17 08:10 Dose: 975 mg Albuterol/Ipratropium (Duoneb 3 Mg/0.5 Mg (3 Ml) Ud) 3 ml IH [id number] Last Admin: 09/21/17 07:16 Dose: 3 ml Albuterol/Ipratropium (Duoneb 3 Mg/0.5 Mg (3 Ml) Ud) 3 ml IH Q2H PRN PRN Reason: Shortness of Breath Last Admin: 09/17/17 09:07 Dose: 3 ml Budesonide (Pulmicort Respules) 0.5 mg IH [id number] [facility] Last Admin: 09/21/17 07:16 Dose: 0.5 mg Enoxaparin Sodium (Lovenox) 40 mg SC DAILY [facility] PRN Reason: Protocol Last Admin: 09/20/17 09:14 Dose: 40 mg Doxycycline Hyclate 100 mg/ (Sodium Chloride) 100 mls @ 100 mls/hr IVPB Q12 [facility] PRN Reason: Protocol Last Admin: 09/20/17 21:53 Dose: 100 mls/hr Meropenem (Merrem Iv 1 Gm Premix) 50 mls @ 100 mls/hr IVPB Q12 [facility] PRN Reason: Protocol Last Admin: 09/20/17 21:52 Dose: 100 mls/hr Linezolid (Zyvox 600mg/300ml D5w) 600 mg in 300 mls @ 200 mls/hr IVPB Q12 [facility] PRN Reason: Protocol Stop: 09/24/17 13:46 Last Admin: 09/18/17 09:27 Dose: 200 mls/hr Cefazolin Sodium 2 gm/ Sodium (Chloride) 100 mls @ 200 mls/hr IVPB Q8 [facility] PRN Reason: Protocol Last Admin: 09/21/17 05:36 Dose: 200 mls/hr Magnesium Oxide (Mag-Ox) 400 mg PO TID [facility] Last Admin: 09/20/17 17:40 Dose: 400 mg Methylprednisolone (Solu-Medrol) 30 mg IVP Q12 [facility] Last Admin: 09/20/17 21:51 Dose: 30 mg Ondansetron HCl (Zofran Inj) 4 mg IVP ONCE PRN PRN Reason: Nausea/Vomiting Oseltamivir Phosphate (Tamiflu) 30 mg PO DAILY [facility] PRN Reason: Protocol Last Admin: 09/20/17 09:14 Dose: 30 mg - Labs Labs: 09/20/17 07:00 09/20/17 07:00 PT 16.7 SECONDS (9.4-12.5) H 09/16/17 18:00 INR 1.45 (0.93-1.08) H 09/16/17 18:00 APTT 29.6 Seconds (25.1-36.5) 09/16/17 18:00 - Constitutional Appears: Non-toxic, Chronically Ill - Head Exam Head Exam: NORMAL INSPECTION - ENT Exam ENT Exam: Mucous Membranes Moist - Neck Exam Neck Exam: absent: Meningismus - Respiratory Exam Respiratory Exam: Decreased Breath Sounds - Cardiovascular Exam Cardiovascular Exam: +S1, +S2 - GI/Abdominal Exam GI & Abdominal Exam: Soft. 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
--- NOTE | 2017-09-21 19:15 | PN ---
DATE: 09/20/2017 SUBJECTIVE: She is comfortable in bed, in no acute distress. She defervesced. She has stage IV lung cancer, admitted with shortness of breath. Found to have flu and also Staph aureus septicemia. Port was removed yesterday. Shortness of breath has resolved. Hemoglobin improved. She had pancytopenia on admission. Her blood count improved. No chest pain. No cough with expectoration. REVIEW OF SYSTEMS: As per HPI. Rest of 12-point review systems reviewed and negative. PHYSICAL EXAMINATION: GENERAL: Comfortable in bed, in no acute distress. VITAL SIGNS: Temperature 98, heart rate 85 per minute, blood pressure 123/80 oxygen saturation is 95% on 2 liters oxygen by nasal cannula. HEENT: Pallor positive. NECK: No lymphadenopathy. CHEST: Air entry present and equal bilateral. No rhonchi, no crepitations. CARDIOVASCULAR: S1 and S2 normal. No murmur. No gallop. ABDOMEN: Soft, nontender. No hepatosplenomegaly. EXTREMITIES: No edema. ART EDUCATOR: Alert and oriented x3. No focal sensory or motor deficit. LABORATORY DATA: White count 9.4, hemoglobin 9.5, hematocrit 30.4, and platelet 138. Sodium 134, potassium 3.9, creatinine 1.3. Bilirubin 0.4. MEDICATIONS: Tylenol 650 every 4 hour p.r.n., DuoNeb every 6 hour and p.r.n., Pulmicort inhalation every 12 hour, cefazolin, doxycycline, Lovenox 40 subcu daily, Zyvox 600 every 12, mag 400 t.i.d., meropenem, Zofran p.r.n., Tamiflu 30 mg p.o. daily. ASSESSMENT: 1. Stage IV lung cancer. Stable disease. 2. Staph aureus septicemia, port removed. She will be scheduled for PICC line and continuation of IV antibiotic for 6 weeks, ceftriaxone 2 g daily. 3. Pancytopenia, improved. 4. Severe chronic obstructive pulmonary disease; on bronchodilators, steroid, and antibiotic. 5. Continue deep venous thrombosis prophylaxis with Lovenox. Christine Wood MD [facility] # [id number] MTDGina
--- NOTE | 2017-09-21 19:48 | PN ---
DATE: 09/21/2017 SUBJECTIVE: She is comfortable in bed, in no acute distress. Port removed on Friday. No fever. Baseline shortness of breath. Cough markedly decreased. Blood counts include hemoglobin 9.1 today. REVIEW OF SYSTEMS: As per HPI. Rest of 12-point review of systems reviewed negative. PHYSICAL EXAMINATION: GENERAL: Comfortable in bed, in no acute distress. VITAL SIGNS: Temperature 98.7, heart rate 80 per minute, blood pressure 123/86, oxygen saturation is 95% on 2 liters oxygen by nasal cannula. HEENT: Pallor positive. NECK: No lymphadenopathy. CHEST: Air entry present and equal bilateral. No rhonchi, no crepitations. CARDIOVASCULAR: S1 and S2 normal. No murmur. No gallop. ABDOMEN: Soft, nontender. No hepatosplenomegaly. EXTREMITIES: No edema. FILLER BLENDER: Alert and oriented x3. No focal sensory or motor deficit. LABORATORY DATA: White count 9.4, hemoglobin 9.5, platelet 138. Sodium 134, potassium 3.9, creatinine 1.3. MEDICATIONS: Reviewed. ASSESSMENT: 1. Stage IV lung cancer. 2. Staphylococcus aureus sepsis. 3. Chronic obstructive pulmonary disease. 4. Pancytopenia. PLAN: Port is removed. She will be scheduled for PICC line placement tomorrow for continuation of home antibiotic. Discussed with Dr. Pichardo. She will need ceftriaxone 2 g IV daily for 4-6 weeks. She is insisting of going home today because somebody was killed in her car and she said she has to be home by any means. After a lengthy discussion with her, she agreed to stay till tomorrow morning. We will discuss with the high risk case manager for arrangement of IV antibiotic and PICC line placement tomorrow. Discussed with the staff nurse. Pancytopenia improved. Her renal condition improved overall. Christine Wood MD [facility]
[2017-09-22] MEDS: Albuterol-Ipratrop 3 mg / 0.5 (3 ml) UD IH SCH ×3 (02:23→14:06)
[2017-09-22] MEDS: ceFAZolin 2 GM in Sodium Chloride 0.9% 100 ML IVPB SCH ×2 (05:34→14:23)
--- NOTE | 2017-09-22 07:18 | PN ---
DATE: 09/22/2017 SUBJECTIVE: The patient has no complaints of any chest pain. No shortness of breath. No headaches or dizziness. PHYSICAL EXAMINATION: VITAL SIGNS: Temperature is 98.1, pulse of 101, blood pressure is 124/92, respirations 20. GENERAL: The patient is lying in bed, flat, comfortable. HEENT: No oral lesion. Anicteric sclerae. Moist mucosa. NECK: No JVD, adenopathy, or thyromegaly. CARDIOVASCULAR: S1 and S2, regular. No murmurs, rubs, or gallops. LUNGS: Clear to auscultation bilaterally. No wheeze, rales, or rhonchi. ABDOMEN: Bowel sounds are positive, soft, nontender and nondistended. EXTREMITIES: no cyanosis, clubbing or edema. ASSESSMENT: 1. Sepsis secondary to Staphylococcus aureus. 2. Infected Port-A-Cath, status post removal. 3. Jyc-yeymr-qylr lung cancer. 4. Hospital acquired pneumonia. 5. Chronic obstructive pulmonary disease. 6. 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 7. Pancytopenia. PLAN: The patient is currently comfortable. She is being followed by Infectious Disease. She had the Staph aureus repeat cultures have been negative. She is on cefazolin for antibiotic. She is on doxycycline. She is going to continue with meropenem for antibiotics. She is on steroids by Dr. Mueller. She is also on Linezolid. The patient is being followed by Pulmonary, I appreciate their input. The patient will need to continue cefazolin for 4-6 weeks. She is on day #6 of meropenem, which is completed. Her echo did not show vegetations. She may need subacute rehab because of the 4-6 weeks of antibiotics she requires. Alejandro Miranda MD
[2017-09-22] MEDS: Budesonide 0.5 mg/2 ml Inhal Susp UD IH SCH (07:21)
[2017-09-22 07:45] LABS: BASO # 0.02 K/mm3 (0.0-2.0); BASO % 0.1 % (0.0-3.0); GRAN # 10.23 (1.4-6.5); GRAN % 73.6 % (50.0-68.0); HEMOGLOBIN 10.7 g/dL (12.0-16.0); LYMPH # 2.3 (1.2-3.4); LYMPH % 16.2 % (22.0-35.0); MEAN CELL VOLUME 84.5 fl (80.0-105.0); MEAN CORPUSCULAR HEMOGLOBIN 26.8 pg (25.0-35.0); MEAN CORPUSCULAR HGB CONC 31.8 g/dl (31.0-37.0); MEAN PLATELET VOLUME 8.3 fl (7.0-11.0); MONO # 1.4 (0.1-0.6); MONO % 10.1 % (1.0-6.0); RBC 3.99 10^6/uL (3.5-6.1); RED CELL DISTRIBUTION WIDTH 26.4 % (11.5-14.5); WHITE BLOOD COUNT 13.9 10^3/ul (4.5-11.0)
[2017-09-22 07:49] LABS: BLOOD UREA NITROGEN 31 mg/dL (7-21); CALCIUM 9.9 mg/dL (8.4-10.5); GFR AFRICAN-AMERICAN > 60; GFR NON-AFRICAN AMERICAN 50
[2017-09-22 08:09] VITALS: BP 114/79; PULSE 94; TEMP 97.6; O2SAT 100
[2017-09-22] MEDS ORDERED: MethylPREDNISolone 40 mg Vial IVP SCH (10:00)
[2017-09-22] MEDS: Enoxaparin 40 mg Syringe SC SCH (10:13)
[2017-09-22] MEDS: Magnesium Oxide 400 mg Tab UD PO SCH ×2 (10:13→14:28)
--- NOTE | 2017-09-22 10:50 | PN ---
DATE: 09/22/2017 PULMONARY NOTE SUBJECTIVE: The patient appears comfortable this morning. She is not short of breath at rest. PHYSICAL EXAMINATION VITAL SIGNS: Last temperature recorded is 98.1, pulse is approximately 88, respiratory rate 18, blood pressure 124/92. Oxygen saturation on nasal cannula is 95%. HEENT: Normocephalic, atraumatic. No JVD. CARDIOVASCULAR: Positive S1, S2. No S3 gallop. LUNGS: Improved breath sounds at the bases. Much less rhonchi. No wheezing. EXTREMITIES: Positive for edema. No cyanosis, no clubbing. Calves are nontender to palpation. GI: Abdomen is soft, nontender, nondistended. Bowel sounds are positive. SKIN: No acute rash. NEUROLOGIC: Limited at the present time. IMPRESSION: 1. Staphylococcus sepsis. Rule out Port-A-Cath infection. 2. Advanced chronic obstructive pulmonary disease, on home oxygen. 3. Advanced non-small cell cancer of the left lung. 4. Bronchospasm - resolving. 5. Anemia. 6. Thrombocytopenia. PLAN: The patient appears very comfortable this morning. She is not short of breath at rest. She does state to feeling much, much better overall. On physical exam, there is much less bronchospasm noted. In addition, the alveolar-arterial gradient is also much less. I will continue with the current nebulizer treatments and decrease the intravenous steroids this morning. The patient remains on antibiotic therapy - as per Infectious Disease. Input by Dr. Pichardo is noted. The temperatures have fully resolved. The clinical status of the patient is significantly improved - compared to the initial presentation. However, again, unfortunately, the overall status/prognosis for this patient does remain poor. All are aware. I will discuss the above with Dr. Miranda. Amadou Mueller MD [facility]
--- NOTE | 2017-10-02 05:20 | OP ---
PROCEDURE DATE: 09/19/2017 PREOPERATIVE DIAGNOSIS: Infected Port-A-Cath. POSTOPERATIVE DIAGNOSIS: Infected Port-A-Cath. PROCEDURE: Removal. SURGEON: Ángel Irizarry MD ASSISTANTS: Reece Calvert MD and . DESCRIPTION OF PROCEDURE: In the operating room, the patient was identified by name, name of procedure, laterality and my pamela, palpable port. The patient was identified quickly. The area was prepped with chlorhexidine, waiting 3 minutes, it was draped. Thereafter, the timeout was successfully completed. With IV sedation, the area was then injected with Xylocaine, Marcaine mix one-to-one. About 10 mL were given. The old incision was opened and the port was identified. The catheter was very free. There was no fibrin case around it. It was completely removed. Thereafter, by circumferential dissection, the Port-A-Cath was removed. The tip was cultured aerobically and anaerobically and removed. There was no bleeding. The tract was closed with Vicryl, the area was closed with Vicryl. Subcuticular stitches were placed. Light dressing was applied. The patient was taken to the recovery room in good condition, after the sponge and needle count was declared correct. Ángel Irizarry MD
== END 2017-09-22 16:36 | disposition home or self-care (01) | DRG 314 ==
LOC: ED 16:28 → ERH 18:30 → 2RNO 23:06 → ICU 09-17 09:24 → 3RSO 09-19 14:02 → 5RNO 09-20 17:28 → 5RSO 09-22 10:14
PROVIDERS: ADMIT Internal Medicine Nephrology; ATTEND Internal Medicine Nephrology
PROC: 3E0F7GC Introduction of Other Therapeutic Substance into Respiratory Tract, Via Natural or Artificial Opening (ICD-10-PCS; 2017-09-17)
PROC: 0JPT0WZ Removal of Totally Implantable Vascular Access Device from Trunk Subcutaneous Tissue and Fascia, Open Approach (ICD-10-PCS; principal; 2017-09-19 11:30)
PROC: 02HV33Z Insertion of Infusion Device into Superior Vena Cava, Percutaneous Approach (ICD-10-PCS; 2017-09-22)
PROC: B548ZZA Ultrasonography of Superior Vena Cava, Guidance (ICD-10-PCS; 2017-09-22)
DX: T80.211A Bloodstream infection due to central venous catheter, initial encounter (principal); A41.01 Sepsis due to Methicillin susceptible Staphylococcus aureus; J10.00 Influenza due to other identified influenza virus with unspecified type of pneumonia; J96.91 Respiratory failure, unspecified with hypoxia; R65.20 Severe sepsis without septic shock; C34.32 Malignant neoplasm of lower lobe, left bronchus or lung; E87.1 Hypo-osmolality and hyponatremia; N17.9 Acute kidney failure, unspecified; D61.818 Other pancytopenia; E87.6 Hypokalemia; J43.9 Emphysema, unspecified; Z99.81 Dependence on supplemental oxygen; J98.01 Acute bronchospasm; I87.2 Venous insufficiency (chronic) (peripheral); E86.0 Dehydration; N18.9 Chronic kidney disease, unspecified; Y95 Nosocomial condition; E27.9 Disorder of adrenal gland, unspecified; Y84.8 Other medical procedures as the cause of abnormal reaction of the patient, or of later complication, without mention of misadventure at the time of the procedure; Z87.891 Personal history of nicotine dependence

== ENCOUNTER 2017-10-31 12:17 | Day surgery (SDC) | payer OTHER ==
[2017-10-28 08:46] VITALS: BMI 29.2
[2017-10-31] MEDS ORDERED: Lidocaine 2% Inj (20ml) ONE (12:34)
[2017-10-31] MEDS ORDERED: Midazolam 2 MG/2 ML VIAL ONE ×3 (12:34→14:37)
[2017-10-31 12:45] LABS: BASO # 0.02 K/mm3 (0.0-2.0); BASO % 0.4 % (0.0-3.0); GRAN # 4.56 (1.4-6.5); GRAN % 81.9 % (50.0-68.0); HEMOGLOBIN 11.2 g/dL (12.0-16.0); LYMPH # 0.9 (1.2-3.4); LYMPH % 16.4 % (22.0-35.0); MEAN CELL VOLUME 88.5 fl (80.0-105.0); MEAN CORPUSCULAR HGB CONC 31.6 g/dl (31.0-37.0); MEAN PLATELET VOLUME 8.4 fl (7.0-11.0); MONO # 0.1 (0.1-0.6); MONO % 1.3 % (1.0-6.0); WHITE BLOOD COUNT 5.6 10^3/ul (4.5-11.0)
[2017-10-31 12:54] LABS: BLOOD UREA NITROGEN 16 mg/dL (7-21); CALCIUM 8.9 mg/dL (8.4-10.5); GFR AFRICAN-AMERICAN > 60; GFR NON-AFRICAN AMERICAN 56
[2017-10-31 12:57] LABS: INR 1.16 (0.93-1.08); PARTIAL THROMBOPLASTIN TIME 31.2 Seconds (25.1-36.5); PROTHROMBIN TIME 13.4 SECONDS (9.4-12.5)
[2017-10-31] MEDS ORDERED: Oxycodone/Acetaminophen 5/325 mg Tab PO PRN (15:21)
[2017-10-31] MEDS ORDERED: Sodium Chloride 0.45% 1,000 ML IV SCH (15:30)
[2017-10-31 16:24] VITALS: BP 113/71; PULSE 100; RESP 18; TEMP 98; O2SAT 92
--- NOTE | 2017-10-31 17:58 | VASCULAR ---
PROCEDURE: Ultrasound and fluoroscopic right internal jugular venous access port. CLINICAL HISTORY: Metastatic lung carcinoma. Previously infected port.Venous port for chemotherapy. PHYSICIAN(S): Dez Laird M.D. TECHNIQUE: The relative risks and indications of the procedure were explained to the patient and consent obtained. The patient was placed supine on the arteriogram table and the right neck and chest prepped and draped in the usual sterile fashion. Conscious sedation monitoring was provided throughout the procedure by a nurse. Antibiotics were given prior to the procedure. Under direct ultrasound guidance, the right internal jugular vein was punctured with a micro-puncture set. A 0.035 angled Glidewire was advanced into the IVC. A 4 cm incision was made below the right clavicle and the pocket blunted dissected. A 8 [place] single-lumen catheter, 22 cm long, was advanced to the SVC/RA junction. The catheter was trimmed and attached to the port. The port aspirates and injects easily. The port was placed in the pocket and closed in 2 layers. The patient tolerated the procedure well. IMPRESSION: Ultrasound and fluoroscopically placed right internal jugular venous access port.
== END 2017-10-31 17:30 | disposition home or self-care (01) ==
LOC: SDSVAS 12:17
PROVIDERS: ATTEND Radiology Vascular & Interventional Radiology
DX: C34.90 Malignant neoplasm of unspecified part of unspecified bronchus or lung (principal); C79.9 Secondary malignant neoplasm of unspecified site; J44.9 Chronic obstructive pulmonary disease, unspecified; Z87.891 Personal history of nicotine dependence
CPT/HCPCS: 36415; 36561; 76937; 77001; 80048; 85025; 85610; 85730; 99152; C1769; C1788; J0690; J1644; J2250; J2405; J3010; J7030

== ENCOUNTER 2017-12-22 13:06 | Emergency (ER) | payer OTHER ==
[2017-12-22 13:17] VITALS: BMI 27.6
[2017-12-22 13:22] VITALS: TEMP 98.9
--- NOTE | 2017-12-22 13:52 | ED PDOC ---
Arrival/HPI - General Chief Complaint: Shortness Of Breath Time Seen by Provider: 12/22/17 13:23 Historian: Patient - History of Present Illness Narrative History of Present Illness (Text): 12/22/17 13:45 A 62 year old female, whose past medical history includes stage 4 lung cancer on chemotherapy and COPD, sent into the emergency department by oncologist for a blood tinged cough. Patient notes she has had a cough with mild shortness of breath over the past 2 months. She reports noticing mild streaks of blood 2 days ago. Patient denies any fever, chills, nausea, vomiting, abdominal pain, chest pain or any other complaints. Oncologist: Dr. Wood Time/Duration: Other Symptom Course: Unchanged Context: Home Past Medical History - Provider Review Nursing Documentation Reviewed: Yes - Past History Past History: No Previous - Infectious Disease Hx of Infectious Diseases: None - Past Medical History Past Medical History: No Previous - Cardiac Hx Pacemaker: No - Pulmonary Hx Chronic Obstructive Pulmonary Disease (COPD): Yes Hx Lung Cancer: Yes (on chemo) - Neurological Hx Paralysis: No - HEENT Hx HEENT Disorder: No - Renal Hx Renal Failure: Yes - Endocrine/Metabolic Hx Endocrine Disorders: No - Hematological/Oncological Hx Blood Transfusions: Yes Hx Blood Transfusion Reaction: No - Integumentary Hx Dermatological Disorder: No - Musculoskeletal/Rheumatological Hx Musculoskeletal Disorders: No - Gastrointestinal Hx Gastrointestinal Disorders: No - Genitourinary/Gynecological Hx Genitourinary Disorders: No - Psychiatric Hx Emotional Abuse: No Hx Physical Abuse: No Hx Substance Use: No - Surgical History Other/Comment: R chest port - Anesthesia Hx Anesthesia: Yes Hx Anesthesia Reactions: No Hx Malignant Hyperthermia: No - Suicidal Assessment Feels Threatened In Home Enviroment: No Family/Social History - Physician Review Nursing Documentation Reviewed: Yes Family/Social History: No Known Family HX Smoking Status: Former Smoker Hx Alcohol Use: No Hx Substance Use: No Hx Substance Use Treatment: No Allergies/Home Meds Allergies/Adverse Reactions: Allergies No Known Allergies Allergy (Verified 09/16/17 16:31) Home Medications: Home Meds Medication Instructions Recorded Confirmed Dextroamphetamine/Amphetamine 20 mg PO TID 10/28/17 12/22/17 [Adderall 20 mg Tablet] Potassium Chloride [K-Dur 20 mEq 80 meq PO DAILY 10/28/17 12/22/17 ER Tab] Albuterol 0.083% [Albuterol 0.083% 1 vial IH QID PRN 12/22/17 12/22/17 Inhal Dot (2.5 mg/3 ml) UD] Ipratropium 0.02% [Atrovent] 1 vial IH QID PRN 12/22/17 12/22/17 Magnesium Oxide [Mag-Ox] 1 tab PO DAILY 12/22/17 12/22/17 Nystatin [Nystatin Oral Susp] 1 tab PO TID 12/22/17 12/22/17 Review of Systems - Physician Review All systems were reviewed & negative as marked: Yes - Review of Systems Constitutional: absent: Fevers, Night Sweats Respiratory: SOB, Cough, Sputum (blood tinged) Cardiovascular: absent: Chest Pain Gastrointestinal: absent: Abdominal Pain, Nausea, Vomiting Physical Exam Vital Signs Reviewed: Yes Vital Signs Temp Pulse Resp BP Pulse Ox 12/22/17 16:07 78 18 128/76 98 12/22/17 15:06 18 12/22/17 13:21 98.9 F 119 H 20 123/83 91 L Temperature: Afebrile Blood Pressure: Normal Pulse: Tachycardic Respiratory Rate: Normal Appearance: Positive for: Well-Appearing, Non-Toxic, Comfortable Pain Distress: None Mental Status: Positive for: Alert and Oriented X 3 - Systems Exam Head: Present: Atraumatic, Normocephalic Pupils: Present: PERRL Extroacular Muscles: Present: EOMI Conjunctiva: Present: Normal Mouth: Present: Moist Mucous Membranes Neck: Present: Normal Range of Motion Respiratory/Chest: Present: Good Air Exchange, Rhonchi (on right lobe), Other ( port to right chest). No: Respiratory Distress, Accessory Muscle Use Cardiovascular: Present: Regular Rate and Rhythm, Normal S1, S2. No: Murmurs Abdomen: Present: Normal Bowel Sounds. No: Tenderness, Distention, Peritoneal Signs Back: Present: Normal Inspection Upper Extremity: Present: Normal Inspection, Other (clubbing of fingers). No: Cyanosis, Edema Lower Extremity: Present: Normal Inspection. No: Edema Neurological: Present: GCS=15, CN II-XII Intact, Speech Normal Skin: Present: Warm, Dry, Normal Color. No: Rashes Psychiatric: Present: Alert, Oriented x 3, Normal Insight, Normal Concentration Medical Decision Making ED Course and Treatment: 12/22/17 13:45 Impression: A 62 year old female with a blood tinged cough Plan: -- Chest CT -- Chest xray -- EKG -- Labs -- Reassess and disposition Progress Notes: EKG shows sinus tachycardia at 118 BPM with normal axis, normal intervals. Interpreted by me. Case discussed with Dr. Wood at 13:42, who is aware of and in agreement with plan. 12/22/17 13:[address] Wood, who is aware and agrees with Emergency department management plan, requests patient to be discharged home with follow- up instructions to her office tomorrow. Patient understands and agrees with plan. Patient is currently in no acute distress and presents no new complaints. - Lab Interpretations Lab Results: 12/22/17 13:51 12/22/17 13:51 Lab Results 12/22/17 13:51: Sodium 134, Potassium 3.5 L, Chloride 95 L, Carbon Dioxide 30, Anion Gap 13, BUN 17, Creatinine 1.0, Est GFR ( Amer) > 60, Est GFR (Non- Af Amer) 56, Random Glucose 130 H, Calcium 8.9, Magnesium 1.7, Lactate Dehydrogenase 370, Total Creatine Kinase < 20 L, Troponin I < 0.01 D 12/22/17 13:51: WBC 7.2 D, RBC 3.83, Hgb 10.2 L, Hct 31.8 L, MCV 83.0 D, MCH 26.6, MCHC 32.1, RDW 22.2 H, Plt Count 204, MPV 7.9, Gran % 70.1 H, Lymph % ( Auto) 17.1 L, [place] % (Auto) 12.3 H, Eos % (Auto) 0.1 L, Baso % (Auto) 0.4, Gran # 5.05, Lymph # (Auto) 1.2, [place] # (Auto) 0.9 H, Eos # (Auto) 0.0, Baso # (Auto ) 0.03 I have reviewed the lab results: Yes - RAD Interpretation Radiology Orders: 12/22/17 13:45 CHEST W/O CONTRAST [CT] Stat CHEST TWO VIEWS (PA/LAT) [RAD] Stat - Scribe Statement The provider has reviewed the documentation as recorded by the Scribe Maddison Venegas Provider Scribe Attestation: All medical record entries made by the Scribe were at my direction and personally dictated by me. I have reviewed the chart and agree that the record accurately reflects my personal performance of the history, physical exam, medical decision making, and the department course for this patient. I have also personally directed, reviewed, and agree with the discharge instructions and disposition. Disposition/Present on Arrival - Present on Arrival Any Indicators Present on Arrival: No History of DVT/PE: No History of Uncontrolled Diabetes: No Urinary Catheter: No History of Decub. Ulcer: No History Surgical Site Infection Following: None - Disposition Have Diagnosis and Disposition been Completed?: Yes Diagnosis: Lung cancer Disposition: HOME/ ROUTINE Disposition Time: 15:25 Condition: GOOD Discharge Instructions (ExitCare): Lung Cancer (DC) Additional Instructions: MEHRDAD DORANTES, thank you for letting us take care of you today. Your provider was Freddie Henriquez DO and you were treated for COUGHING UP BLOOD. The emergency medical care you received today was directed at your acute symptoms. If you were prescribed any medication, please fill it and take as directed. It may take several days for your symptoms to resolve. Return to the Emergency Department if your symptoms worsen, do not improve, or if you have any other problems. Please contact your doctor or call one of the physicians/clinics you have been referred to that are listed on the Patient Visit Information form that is included in your discharge packet. Bring any paperwork you were given at discharge with you along with any medications you are taking to your follow up visit. Our treatment cannot replace ongoing medical care by a primary care provider outside of the emergency department. Thank you for allowing the [facility] team to be part of your care today. Follow up with Dr. Wood tomorrow morning for re-evaluation and further management. Referrals: Christine Wood MD [Staff Provider] - Follow up with primary Forms: Solaiemes (Hungarian)
[2017-12-22 14:08] LABS: BASO # 0.03 K/mm3 (0.0-2.0); BASO % 0.4 % (0.0-3.0); EOS % 0.1 % (1.5-5.0); GRAN # 5.05 (1.4-6.5); GRAN % 70.1 % (50.0-68.0); HEMOGLOBIN 10.2 g/dL (12.0-16.0); LYMPH # 1.2 (1.2-3.4); LYMPH % 17.1 % (22.0-35.0); MEAN CORPUSCULAR HEMOGLOBIN 26.6 pg (25.0-35.0); MEAN CORPUSCULAR HGB CONC 32.1 g/dl (31.0-37.0); MEAN PLATELET VOLUME 7.9 fl (7.0-11.0); MONO # 0.9 (0.1-0.6); MONO % 12.3 % (1.0-6.0); RBC 3.83 10^6/uL (3.5-6.1); RED CELL DISTRIBUTION WIDTH 22.2 % (11.5-14.5); WHITE BLOOD COUNT 7.2 10^3/ul (4.5-11.0)
[2017-12-22 14:19] LABS: BLOOD UREA NITROGEN 17 mg/dL (7-21); CALCIUM 8.9 mg/dL (8.4-10.5); GFR AFRICAN-AMERICAN > 60; GFR NON-AFRICAN AMERICAN 56
[2017-12-22 14:29] LABS: TROPONIN I < 0.01 ng/mL
--- NOTE | 2017-12-22 15:17 | CT ---
PROCEDURE: CT Chest without contrast HISTORY: Cough blood - h/o lung CA COMPARISON: Comparison made with CT chest 11/20/2017. TECHNIQUE: Contiguous axial images were obtained through the chest without intravenous contrast enhancement. Sagittal and coronal reconstructions were performed. Radiation dose (DLP): 185.92 mGy-cm. This CT exam was performed using one or more of the following dose reduction techniques: Automated exposure control, adjustment of the mA and/or kV according to patient size, and/or use of iterative reconstruction technique.. FINDINGS: LUNGS: Re- demonstrated are fairly significant on centrilobular and panlobular emphysematous changes in the upper lobes and to a lesser degree mass density in the left lung base which measures approximately 7.1 cm cc x 6.2 cm trans x 6.8 cm AP. Findings consistent with this patient's history of lung carcinoma. The lesion exhibits peripheral spiculated borders. MEDIASTINUM: Heart size is upper limits of normal. No significant pericardial effusion. The aorta and pulmonary trunk poorly seen due to cardiac motion. The AA aorta measures approximately 3.7 cm. Ascending thoracic aorta measures approximately 2.75 cm. . Pulmonary trunk is dilated measuring approximately 3.9 cm possibly due to pulmonary arterial hypertension. There are a several on mediastinal lymph nodes the largest in the right precarinal region measuring approximately 16 mm. Ill-defined mildly enlarged subcarinal lymph node or nodes also felt be present. Evaluation for hilar adenopathy is limited due to lack of circulating intravenous contrast material. Central airways midline and patent. No large central endoluminal lesions. PLEURA: No pleural fluid. No pneumothorax. BONES: Mild multilevel degenerative spondylosis of the thoracic spine. No acute compression fractures no retropulsed fragments. No definitive suspicious lytic or blastic lesions identified. Degenerative changes bilateral shoulder girdles. UPPER ABDOMEN: Grossly unremarkable. OTHER FINDINGS: None. IMPRESSION: Large left lower lobe mass consistent with this patient's history of lung carcinoma. Extensive centrilobular and panlobular emphysematous changes upper lobe predominance. Peripheral areas of honeycombing and fibrosis in the upper and lower lobes. Enlarged right precarinal lymph node with questionable enlarged subcarinal lymph node.
--- NOTE | 2017-12-22 15:26 | RAD ---
HISTORY: r/o infiltrate - h/o lung CA in left lung COMPARISON: Correlation made with concurrent CT scan chest. TECHNIQUE: Chest PA and lateral FINDINGS: LUNGS: Large left lower lobe mass less well seen on this study as compared to concurrent CT chest. Significant centrilobular emphysematous changes upper lobe predominance with peripheral fibrosis/honeycombing also less well seen PLEURA: No significant pleural effusion identified. No pneumothorax apparent. CARDIOVASCULAR: Normal. OSSEOUS STRUCTURES: No significant abnormalities. VISUALIZED UPPER ABDOMEN: Normal. OTHER FINDINGS: None. IMPRESSION: Large left lower lobe mass less well seen on this study as compared to concurrent CT chest. Significant centrilobular emphysematous changes upper lobe predominance with peripheral fibrosis/honeycombing also less well seen
--- NOTE | 2017-12-22 15:35 | CARD ---
APPROVED REPORT EKG Measurement Heart [id number] <Conclusion> Sinus tachycardia Otherwise normal ECG
[2017-12-22 16:07] VITALS: BP 128/76; PULSE 78; RESP 18; O2SAT 98
== END 2017-12-22 16:06 | disposition home or self-care (01) ==
LOC: ED 13:06
DX: C34.90 Malignant neoplasm of unspecified part of unspecified bronchus or lung (principal); Z87.891 Personal history of nicotine dependence

== ENCOUNTER 2018-02-17 17:27 | Observation (INO) | payer OTHER ==
--- NOTE | 2018-02-17 18:45 | ED PDOC ---
Arrival/HPI - General Chief Complaint: High Blood Pressure Time Seen by Provider: 02/17/18 18:27 Historian: Patient - History of Present Illness Narrative History of Present Illness (Text): 02/17/18 18:41 62 f with hx lung cancer, copd presents to the ED with progressively worsening fatigue, dyspnea and tachycardia. Patient reports she was feeling fatigued over the past several days. Patient states she had a routine visit to see Dr. Wood for bloodwork prior to getting chemo tx. Patient denies any chest pain. Patient states that she is currently on levofloxacin for empiric tx as she was having a productive cough. Past Medical History - Provider Review Nursing Documentation Reviewed: Yes - Past History Past History: No Previous - Infectious Disease Hx of Infectious Diseases: None - Past Medical History Past Medical History: No Previous - Cardiac Hx Cardiac Disorders: No - Pulmonary Hx Respiratory Disorders: Yes Hx Chronic Obstructive Pulmonary Disease (COPD): Yes Hx Lung Cancer: Yes (stage 4, on chemo) - Neurological Hx Neurological Disorder: No - HEENT Hx HEENT Disorder: No - Renal Hx Renal Disorder: Yes Hx Renal Failure: Yes - Endocrine/Metabolic Hx Endocrine Disorders: No - Hematological/Oncological Hx Blood Disorders: Yes Hx Blood Transfusions: Yes - Integumentary Hx Dermatological Disorder: No - Musculoskeletal/Rheumatological Hx Musculoskeletal Disorders: No - Gastrointestinal Hx Gastrointestinal Disorders: No - Genitourinary/Gynecological Hx Genitourinary Disorders: No - Psychiatric Hx Psychophysiologic Disorder: No Hx Substance Use: No - Surgical History Other/Comment: R chest port - Anesthesia Hx Anesthesia: Yes Hx Anesthesia Reactions: No Hx Malignant Hyperthermia: No - Suicidal Assessment Feels Threatened In Home Enviroment: No Family/Social History - Physician Review Nursing Documentation Reviewed: Yes Family/Social History: No Known Family HX Smoking Status: Former Smoker Hx Alcohol Use: No Hx Substance Use: No Hx Substance Use Treatment: No Allergies/Home Meds Allergies/Adverse Reactions: Allergies No Known Allergies Allergy (Verified 02/17/18 18:16) Home Medications: Home Meds Medication Instructions Recorded Confirmed Dextroamphetamine/Amphetamine 20 mg PO TID 10/28/17 02/18/18 [Adderall 20 mg Tablet] Potassium Chloride [K-Dur 20 mEq 10 meq PO TID 10/28/17 02/18/18 ER Tab] Albuterol 0.083% [Albuterol 0.083% 1 vial IH QID PRN 12/22/17 02/17/18 Inhal Dot (2.5 mg/3 ml) UD] Ipratropium 0.02% [Atrovent] 1 vial IH QID PRN 12/22/17 02/17/18 Nystatin [Nystatin Oral Susp] 1 tab PO TID 12/22/17 02/17/18 Review of Systems - Physician Review All systems were reviewed & negative as marked: Yes - Review of Systems Constitutional: Fatigue Cardiovascular: OROURKE. absent: Chest Pain Physical Exam - Physical Exam Narrative Physical Exam (Text): 02/17/18 18:45 Gen: VS reviewed, alert, well developed, well nourished, nontoxic, mild distress ENT: normal pharynx Eye: EOMI, PERRL Neck: no JVD, supple, no adenopathy CV: tachy, regular rhythm, no rubs,no murmur, no gallops, S1, S2, pulses equal and strong Pulm: no distress, clear to auscultation, no wheeze, no rhonchi, breath sounds equal, no rales Abd: soft, nontender, no guarding, no rebound, no rigidity, normal bowel sounds Ext: no edema, there is clubbing of all 10 fingers Skin: pale appearing, no rash, no cyanosis Psych: responds appropriately to questions, normal affect Neuro: oriented x3, CN2-12 intact grossly, motor intact, sensation intact 02/17/18 18:45 02/17/18 18:46 Vital Signs Temp Pulse Resp BP Pulse Ox 02/17/18 22:06 93 H 22 134/95 H 98 02/17/18 21:32 120 H 02/17/18 20:17 116 H 20 135/95 H 98 02/17/18 18:18 98.9 F 130 H 20 126/87 90 L Medical Decision Making ED Course and Treatment: 02/17/18 18:48 Impression: 62 year old female with fatigue. Plan: -- EKG -- Angio Chest CT -- Chest X-ray -- Labs -- Venous Blood Gas -- Nasal Cannula -- Reassess and disposition Prior Visits: Notes and results from previous visits were reviewed. Patient was last seen in here in the emergency department on 12/22/2017 for blood tinged cough. Patient was discharged home. Progress Notes: 02/17/18 20:21 being that the patient is tachycardic, hypoxic on room air, has no sig electrolyte disturbance or severe anemia, i feel it is absolutely necessary to rule out PE in this clinical scenario. despite the borderline low GRF, i feel the risk risk of testing with iv contrast outweighs the risk of missing a potentially life threatening illness such as PE. Patient does not have chest pain, is not acute dyspneic at this time and I do not feel it is absolutely necessary to empirically tx for PE. 02/17/18 20:[address] wood, attending physician covering admission for dr. almonte as it is reported that dr. almonte is away. i have explained in explicit detail my concern for pulmonary embolism and that clincially, the patient does not examine in fluid overload and that acute decomp CHF is lower on the differential diagnosis. I asked Dr. Wood if empirically anticoagulating the patient in the event of the diagnosis of PE would cause problems such bleeding-she states that it wouldnt. As per Dr. Wood, she states that she would rather "watch the patient clinically" and consult cardiology. 2041: case discussed with dr. mathews (unsolicited phone call), recommends giving dose of verapamil 2.5mg IV. Again, I explained to Dr. Mathews my concern for PE and that I was not comfortable giving a beta codi (his original medication recommendation) at this time as it may theoretically cause bronchospasm in a patient with a hx of COPD. 02/18/18 19:25 - Lab Interpretations Lab Results: 02/17/18 19:45 02/17/18 19:45 Lab Results 02/17/18 19:45: Sodium 133, Chloride 93 L, Potassium 3.8, Carbon Dioxide 29, Anion Gap 15, BUN 29 H, Creatinine 1.2, Est GFR ( Amer) 55, Est GFR (Non- Af Amer) 46, Random Glucose 111 H, Calcium 10.1, Total Bilirubin 0.5, AST 50 H D , ALT 12, Alkaline Phosphatase 113, Troponin I 0.04 D, Total Protein 7.7, Albumin 3.7, Globulin 3.9, Albumin/Globulin Ratio 0.9 L 02/17/18 19:45: PT 15.1 H, INR 1.32, APTT 32.8 02/17/18 19:45: WBC 20.1 H D, RBC 3.82, Hgb 10.6 L, Hct 33.0 L, MCV 86.4 D, MCH 27.7, MCHC 32.1, RDW 21.9 H, Plt Count 358, MPV 8.1, Gran % 80.2 H, Lymph % (Auto) 7.1 L, [place] % (Auto) 11.9 H, Eos % (Auto) 0.6 L, Baso % (Auto) 0.2, Gran # 16.10 H, Lymph # (Auto) 1.4, [place] # (Auto) 2.4 H, Eos # (Auto) 0.1, Baso # ( Auto) 0.04 02/17/18 19:45: pO2 36, VBG pH 7.39, VBG pCO2 53.0, VBG HCO3 32.1 H, VBG Total CO2 33.7 H, VBG O2 Sat (Calc) 66.1 H, VBG Base Excess 5.7 H, VBG Potassium 3.7, Sodium 132.0, Chloride 96.0 L, Glucose 110 H, Lactate 0.8, FiO2 21.0, Venous Blood Potassium 3.7 - RAD Interpretation Narrative RAD Interpretations (Text): 02/17/18 19:55 cxr my read: no ptx, small left pleural effusion, ?lll mass, no cardiomegaly Radiology Orders: 02/17/18 18:28 CHEST PORTABLE [RAD] Stat Exhibitions Curator: ED Physician - EKG Interpretation EKG Interpretation (Text): 02/17/18 19:56 1934: sinus tachycardia at 117 bpm, nml qrs, nml axis, no acute sttw abn Interpreted by ED Physician: Yes - Medication Orders Current Medication Orders: Discontinued Medications Ceftriaxone Sodium (Rocephin 1 Gram Ivpb) 1 gm in 100 mls @ 100 mls/hr IVPB DAILY LUZ MARINA PRN Reason: Protocol Last Admin: 02/18/18 10:39 Dose: 100 mls/hr eMAR Start Stop Document 02/18/18 10:39 KL (Rec: 02/18/18 10:39 KL [facility] [id number]) Intravenous Solution Start Date 02/18/18 Start Time 10:39 Levalbuterol HCl (Xopenex) 0.63 mg IH TIDRESP [facility] Last Admin: 02/18/18 07:14 Dose: 0.63 mg Metoprolol Tartrate (Lopressor) 5 mg IVP STAT STA Stop: 02/17/18 21:42 Last Admin: 02/17/18 21:58 Dose: 5 mg IVP Administration Document 02/17/18 21:58 CNR (Rec: 02/17/18 22:01 CNR [id number]) Charges for Administration # of IVP Administrations 1 Metoprolol Tartrate (Lopressor) 25 mg PO BID [facility] Last Admin: 02/18/18 10:39 Dose: 25 mg MAR Pulse and Blood Pressure Document 02/18/18 10:39 KL (Rec: 02/18/18 10:39 KL [id number]) Pulse Pulse Rate (60-90) 100 Blood Pressure Blood Pressure (100/60-150/90) 114/80 Dextroamphetamine/Amphetamine [ Adderall 20 Mg Tablet] 20 Mg 20 mg PO TID [facility] Last Admin: 02/18/18 16:24 Dose: Nystatin (Nystatin Oral Susp) 5 ml PO QID [facility] Last Admin: 02/18/18 16:24 Dose: Verapamil HCl (Verapamil Inj) 2.5 mg IVP STAT STA Stop: 02/17/18 20:45 Last Admin: 02/17/18 21:32 Dose: 2.5 mg IVP Administration Document 02/17/18 21:32 CNR (Rec: 02/17/18 21:32 CNR [id number]) Charges for Administration # of IVP Administrations 1 MAR Pulse and Blood Pressure Document 02/17/18 21:32 CNR (Rec: 02/17/18 21:32 CNR [id number]) Pulse Pulse Rate (60-90) 120 Disposition/Present on Arrival - Present on Arrival Any Indicators Present on Arrival: No History of DVT/PE: No History of Uncontrolled Diabetes: No Urinary Catheter: No History of Decub. Ulcer: No History Surgical Site Infection Following: None - Disposition Have Diagnosis and Disposition been Completed?: Yes Diagnosis: Tachycardia Disposition: HOSPITALIZED Disposition Time: 20:44 Patient Plan: Admission Condition: FAIR
[2018-02-17] MEDS ORDERED: Iohexol 350 MG/100 ML VIAL ONE (19:06)
[2018-02-17 20:03] LABS: BASO # 0.04 K/mm3 (0.0-2.0); BASO % 0.2 % (0.0-3.0); EOS # 0.1 (0.0-0.7); EOS % 0.6 % (1.5-5.0); GRAN # 16.1 (1.4-6.5); GRAN % 80.2 % (50.0-68.0); HEMOGLOBIN 10.6 g/dL (12.0-16.0); LYMPH # 1.4 (1.2-3.4); LYMPH % 7.1 % (22.0-35.0); MEAN CELL VOLUME 86.4 fl (80.0-105.0); MEAN CORPUSCULAR HEMOGLOBIN 27.7 pg (25.0-35.0); MEAN CORPUSCULAR HGB CONC 32.1 g/dl (31.0-37.0); MEAN PLATELET VOLUME 8.1 fl (7.0-11.0); MONO # 2.4 (0.1-0.6); MONO % 11.9 % (1.0-6.0); RBC 3.82 10^6/uL (3.5-6.1); RED CELL DISTRIBUTION WIDTH 21.9 % (11.5-14.5); WHITE BLOOD COUNT 20.1 10^3/ul (4.5-11.0)
[2018-02-17 20:06] LABS: VENOUS BLOOD GAS BASE EXCESS 5.7 mmol/L (0.0-2.0); VENOUS BLOOD GAS PO2 36 mm/Hg (30-55); VENOUS BLOOD PH 7.39 (7.32-7.43)
[2018-02-17 20:16] LABS: INR 1.32; PARTIAL THROMBOPLASTIN TIME 32.8 Seconds (25.1-36.5); PROTHROMBIN TIME 15.1 SECONDS (9.4-12.5)
[2018-02-17 20:17] LABS: ALB/GLOB RATIO 0.9 (1.1-1.8); ALBUMIN 3.7 g/dL (3.0-4.8); CALCIUM 10.1 mg/dL (8.4-10.5)
[2018-02-17] MEDS ORDERED: Sodium Chloride 0.9% 1,000 ML IV STA (20:20)
[2018-02-17 20:28] LABS: TROPONIN I 0.04 ng/mL
[2018-02-17] MEDS: cefTRIAXone 1 gm 1 GM/100 ML BAG IVPB SCH (21:32)
[2018-02-17] MEDS: Levalbuterol 0.63 MG/3 ML Inhal Soln UD IH SCH (21:33)
[2018-02-17] MEDS ORDERED: Metoprolol 1 mg/ml Inj IVP STA (21:41)
[2018-02-17] MEDS: Nystatin 100,000 Units/ml Oral Susp 5 ml UD PO SCH (22:18)
[2018-02-18 03:32] VITALS: BMI 11.0
[2018-02-18] MEDS: Levalbuterol 0.63 MG/3 ML Inhal Soln UD IH SCH (07:14)
[2018-02-18 07:18] VITALS: O2SAT 99
[2018-02-18 08:10] LABS: BASO # 0.04 K/mm3 (0.0-2.0); BASO % 0.3 % (0.0-3.0); EOS # 0.2 (0.0-0.7); EOS % 1.3 % (1.5-5.0); GRAN # 11.13 (1.4-6.5); GRAN % 74.2 % (50.0-68.0); HEMOGLOBIN 10.4 g/dL (12.0-16.0); LYMPH % 13.5 % (22.0-35.0); MEAN CELL VOLUME 87.1 fl (80.0-105.0); MEAN CORPUSCULAR HGB CONC 32.2 g/dl (31.0-37.0); MEAN PLATELET VOLUME 8.2 fl (7.0-11.0); MONO # 1.6 (0.1-0.6); MONO % 10.7 % (1.0-6.0); RBC 3.71 10^6/uL (3.5-6.1)
[2018-02-18 08:22] LABS: CALCIUM 10.2 mg/dL (8.4-10.5)
[2018-02-18] MEDS ORDERED: Barium Sulfate Susp 2.1% w/v, 2.0% w/w 450 mL Bottle PO ONE (08:48)
--- NOTE | 2018-02-18 09:28 | CT ---
Date of service: 02/17/2018 PROCEDURE: CT Chest without contrast HISTORY: tachypnea COMPARISON: 12/22/2017 TECHNIQUE: Contiguous axial images were obtained through the chest without intravenous contrast enhancement. Sagittal and coronal reconstructions were performed. Radiation dose (DLP): 170 mGy-cm. This CT exam was performed using one or more of the following dose reduction techniques: Automated exposure control, adjustment of the mA and/or kV according to patient size, and/or use of iterative reconstruction technique. FINDINGS: LUNGS: There is a 7.6 cm mass in the left lower lobe which has slightly increased in size previously measuring 7.1 cm. There is some pulmonary fibrosis in the periphery of the lungs. MEDIASTINUM: Unremarkable thoracic aorta. No aneurysm. Normal sized heart. Main pulmonary artery unremarkable. No vascular congestion. Mildly enlarged mediastinal lymph nodes are seen. There is a pretracheal lymph node measuring 18 mm. These are unchanged. PLEURA: Small left effusion BONES: No fracture. No destructive lesion. UPPER ABDOMEN: There is a left adrenal mass measuring 3.3 cm in diameter. This is suspicious for a metastatic lesion OTHER FINDINGS: The report concurs with the preliminary [facility] report IMPRESSION: Slight increase in size of left lower lobe lung mass. Mild mediastinal adenopathy unchanged. 3.3 cm left adrenal mass suspicious for metastasis
[2018-02-18] MEDS: Nystatin 100,000 Units/ml Oral Susp 5 ml UD PO SCH ×2 (10:39→16:24)
[2018-02-18] MEDS: cefTRIAXone 1 gm 1 GM/100 ML BAG IVPB SCH (10:39)
--- NOTE | 2018-02-18 11:39 | CP.PCM.HP ---
<Bar Sanchez - Last Filed: 02/18/18 11:35> History of Present Illness - History of Present Illness History of Present Illness: 62 year old female with past medical history of [id number] lung cancer of the lung, COPD, HCAP, post-obstructive pneumonitis, mediastinal lymphadenopathy , left pleural effusion, and left adrenal mass presented to the hospital for shortness of breath. Patient went to see her primary doctor and was advised to come to the ED. The patient had CT of the chest performed which showed increase in lung mass. Patient also had tachycardia. Patient denied chest discomfort at this time. Patient was given Verapamil and Lopressor which helped control her heart rate. Denies fever, chills, vomiting, nausea, diarrhea, numbness, tingling. PMH: As above FMH: Noncontributory Surgical hx: Port placement Allergies: NKDA Medications: Reviewed, as per MAR Present on Admission - Present on Admission Any Indicators Present on Admission: No Review of Systems - Review of Systems Review of Systems: 12 point ROS as per HPI, otherwise negative Past Patient History - Infectious Disease Hx of Infectious Diseases: None - Past Social History Smoking Status: Former Smoker - CARDIAC Hx Cardiac Disorders: No - PULMONARY Hx Chronic Obstructive Pulmonary Disease (COPD): Yes Other/Comment: lung cancr - NEUROLOGICAL Hx Neurological Disorder: No - HEENT Hx HEENT Problems: No - RENAL Hx Chronic Kidney Disease: Yes Hx Renal Failure: Yes - ENDOCRINE/METABOLIC Hx Endocrine Disorders: No - HEMATOLOGICAL/ONCOLOGICAL Hx Anemia: Yes Hx Chemotherapy: Yes (lung ca) - INTEGUMENTARY Hx Dermatological Problems: No - MUSCULOSKELETAL/RHEUMATOLOGICAL Hx Falls: Yes (06/2017) - GASTROINTESTINAL Hx Gastrointestinal Disorders: No - GENITOURINARY/GYNECOLOGICAL Hx Genitourinary Disorders: No - PSYCHIATRIC Hx Substance Use: No - SURGICAL HISTORY Other/Comment: R chest port - ANESTHESIA Hx Anesthesia: Yes Hx Anesthesia Reactions: No Hx Malignant Hyperthermia: No Meds Allergies/Adverse Reactions: Allergies Allergy/AdvReac Type Severity Reaction Status Date / Time No Known Allergies Allergy Verified 02/17/18 18:16 Physical Exam - Constitutional Appears: Non-toxic, No Acute Distress - Head Exam Head Exam: ATRAUMATIC, NORMAL INSPECTION, NORMOCEPHALIC - Eye Exam Eye Exam: EOMI, Normal appearance - ENT Exam ENT Exam: Mucous Membranes Moist - Respiratory Exam Respiratory Exam: Decreased Breath Sounds, NORMAL BREATHING PATTERN. absent: Chest Wall Tenderness, Rales, Rhonchi, Wheezes - Cardiovascular Exam Cardiovascular Exam: RRR, +S1, +S2 - GI/Abdominal Exam GI & Abdominal Exam: Normal Bowel Sounds, Soft. absent: Tenderness - Extremities Exam Extremities exam: Positive for: normal inspection. Negative for: calf tenderness, pedal edema - Neurological Exam Neurological exam: Alert, CN II-XII Intact, Oriented x3 - Psychiatric Exam Psychiatric exam: Normal Affect, Normal Mood - Skin Skin Exam: Intact, Normal Color, Warm Results - Vital Signs Recent Vital Signs: Last Vital Signs Temp 98.5 F 02/18/18 06:00 Pulse 100 H 02/18/18 10:39 Resp 19 02/18/18 06:00 BP 114/80 02/18/18 10:39 Pulse Ox 99 02/18/18 06:00 - Labs Result Diagrams: 02/18/18 07:30 02/18/18 07:30 Labs: Laboratory Results - last 24 hr 02/18/18 02/18/18 02/18/18 07:30 07:30 09:00 WBC 15.0 H D RBC 3.71 Hgb 10.4 L Hct 32.3 L MCV 87.1 MCH 28.0 MCHC 32.2 RDW 22.0 H Plt Count 355 MPV 8.2 Gran % 74.2 H Lymph % (Auto) 13.5 L Webster % (Auto) 10.7 H Eos % (Auto) 1.3 L Baso % (Auto) 0.3 Gran # 11.13 H Lymph # (Auto) 2.0 Webster # (Auto) 1.6 H Eos # (Auto) 0.2 Baso # (Auto) 0.04 Sodium 134 Potassium 4.4 Chloride 92 L Carbon Dioxide 33 Anion Gap 14 BUN 24 H Creatinine 1.2 Est GFR ( Amer) 55 Est GFR (Non-Af Amer) 46 Random Glucose 115 H Calcium 10.2 NT-Pro-B Natriuret Pep 3720 H TSH 3rd Generation 2.35 Assessment & Plan - Assessment and Plan (Free Text) Plan: 1. Tachycardia 2. Shortness of breath 3. Djc-hzfvi-uqic carcinoma of the lung 4. COPD Patient with resolution of her symptoms. Patient will have metoprolol added to daily medical regimen as per cardio. Patient will continue to see Dr. Wood outpatient for chemotherapy. Patient will also be sent home on Augmentin for 7 days. Patient will continue her home medical regimen and she will be discharged today. Daniel, PGY-3 <Alejandro Miranda S - Last Filed: 02/19/18 21:05> Results - Vital Signs Recent Vital Signs: Last Vital Signs Temp 97.7 F 02/18/18 12:00 Pulse 90 02/18/18 12:00 Resp 18 02/18/18 12:00 BP 106/74 02/18/18 12:00 Pulse Ox 99 02/18/18 06:00 - Labs Result Diagrams: 02/18/18 07:30 02/18/18 07:30 Assessment & Plan - Assessment and Plan (Free Text) Plan: Pt seen and examined. I have reviewed the note of the manager medical writing and agree with it. I have discussed the assessment and plan with the resident. I have reviewed the patient's labs and medications. Pt was seen and examined yesterday and this is a late entry. Pt was tachy due to meds that she was on, Adderal, power drink, dehydration etc. She was hydrated and improved. She will be discharged home and will be placed on oral Augmentin. She will f/u with Dr Wood for lung cancer.
[2018-02-18 12:12] VITALS: BP 106/74; PULSE 90; RESP 18; TEMP 97.7
--- NOTE | 2018-02-18 12:28 | RAD ---
Date of service: 02/17/2018 HISTORY: dyspnea COMPARISON: 12/22/2017 FINDINGS: LUNGS: No active pulmonary disease. PLEURA: Small left pleural effusion CARDIOVASCULAR: Mild vascular congestion. OSSEOUS STRUCTURES: No significant abnormalities. VISUALIZED UPPER ABDOMEN: Normal. OTHER FINDINGS: None. IMPRESSION: Mild vascular congestion and small left-sided pleural effusion
--- NOTE | 2018-02-18 15:09 | CT ---
Date of service: 02/18/2018 PROCEDURE: CT Abdomen and Pelvis without intravenous contrast HISTORY: r/o [place]. h/o adrenal mets COMPARISON: None. TECHNIQUE: Without contrast.. Contrast dose: Radiation dose: Total exam DLP = 237 mGy-cm. This CT exam was performed using one or more of the following dose reduction techniques: Automated exposure control, adjustment of the mA and/or kV according to patient size, and/or use of iterative reconstruction technique. FINDINGS: LOWER THORAX: Left lower lobe lung mass previously evaluated LIVER: Unremarkable. No gross lesion or ductal dilatation. GALLBLADDER AND BILE DUCTS: Unremarkable. PANCREAS: Unremarkable. No gross lesion or ductal dilatation. SPLEEN: Unremarkable. ADRENALS: There is a left adrenal mass measuring 3.6 cm diameter by 5 cm in height. Considering the presence of a lung mass this is most likely a metastatic lesion. There is also mild thickening of the right adrenal gland without a discrete mass. KIDNEYS AND URETERS: Unremarkable. No hydronephrosis. No solid mass. VASCULATURE: Unremarkable. No aortic aneurysm. BOWEL: Unremarkable. No obstruction. No gross mural thickening. APPENDIX: Unremarkable. Normal appendix. PERITONEUM: Unremarkable. No free fluid. No free air. LYMPH NODES: Unremarkable. No enlarged lymph nodes. BLADDER: Unremarkable. REPRODUCTIVE: Unremarkable. BONES: No acute fracture. OTHER FINDINGS: None. IMPRESSION: Left adrenal mass.
[2018-02-18] MEDS: Dextroamphetamine/Amphetamine [Adderall 20 Mg Tablet] 20 MG PO SCH ×2 (15:19→16:24)
--- NOTE | 2018-02-18 15:25 | CARD ---
APPROVED REPORT Date of service: 02/18/2018 EKG Measurement Heart [id number] 130P62 [id number] <Conclusion> Normal sinus rhythm Normal ECG
--- NOTE | 2018-02-18 15:41 | CARD ---
APPROVED REPORT Date of service: 02/17/2018 EKG Measurement Heart [id number] [place] 130P58 [id number] <Conclusion> Sinus tachycardia Otherwise normal ECG
--- NOTE | 2018-02-18 19:06 | US ---
HISTORY: Leg pain and swelling. Evaluate for DVT PHYSICIAN(S): Dez Laird MD. TECHNIQUE: Duplex sonography and color-flow Doppler with graded compression were used to evaluate the deep venous systems of both lower extremities. FINDINGS: The visualized deep venous systems of both lower extremities are sonographically normal and compressible. Normal wave forms and augmentation are seen. There is no sonographic evidence for deep venous thrombosis in the visualized segments of both lower extremities. IMPRESSION: No sonographic evidence for deep venous thrombosis in the visualized segments of both lower extremities.
--- NOTE | 2018-02-18 19:30 | CON ---
Copied To: Nikita Mathews MD Attending MD: Nikita Mathews MD DATE: 02/18/2018 REASON FOR CONSULTATION: Sinus tachycardia, history of lung CA, cardiac evaluation. BRIEF CLINICAL HISTORY: This is a 62-year-old female, a smoker of long time which started at age of 17 until beginning of this year, total beginning of 1 pack a day with methanol cigarette. Recently, diagnosed with lung cancer in June, status post chemo, who was here yesterday in Dr. Wood's office. Blood workup prior for chemo. Found to be tachycardic, 130. The patient remained in Dr. Wood's office for two hours, but the heart rate did not come down, so she was transferred to ER. Cardiac consult was called for cardiac evaluation. The patient denies any chest pain. Denies any shortness of breath. Denies any palpitation. PAST MEDICAL HISTORY: Significant for lung cancer diagnosed in 06/2017, history of hemoptysis in 12/2017, history of status post chemo, right lower lobe of the lung is involved in the tumor. SOCIAL HISTORY: Ex-smoker, quit after the patient was diagnosed with lung CA. Denies any history of alcohol abuse. FAMILY HISTORY: No history significant for coronary artery disease. CURRENT MEDICATIONS: The patient is taking antibiotic and Atrovent dual nebulizer treatment, Levaquin, nystatin and takes Adderall for attention deficit disorder. REVIEW OF SYSTEMS: As per HPI. On further interrogation, the patient mentioned that yesterday she took dual nebulizer treatment and then took Adderall for attention deficit disorder and then, she took Boost and then heart rate became fast, she thinks that was the problem, that is why she was tachycardic. Multiple times discussed with Dr. Wood, the ER physician. ER physician at one point was not comfortable giving beta-codi. Ultimately, we gave the beta-codi and heart rate became stable. PHYSICAL EXAMINATION: VITAL SIGNS: Heart rate 84, blood pressure 101/67. HEENT: PERRLA. Extraocular muscles intact. NECK: Supple. No carotid bruits or thyromegaly. CHEST: Clear to auscultation. HEART: S1 and S2 regular. ABDOMEN: Soft. EXTREMITIES: Clubbing and cyanosis negative. LABORATORY DATA: Blood workup as follows: WBC 15, hemoglobin 10.5, hematocrit 32.3, platelet count 355. Chemistry shows sodium 134, potassium 4.4, chloride 90, carbon dioxide 33, anion gap of 14, BUN 24, creatinine 1.2. BNP 3720. EKG shows sinus tachycardia. IMPRESSION: This is a 62-year-old female with past medical history significant for lung cancer, status post chemotherapy admitted yesterday with sinus tachycardia. Length of discussion multiple time done with ER physician, , but he was not feeling comfortable giving a beta-codi. Ultimately, called the ER nurse and gave one dose of IV verapamil. Prior to that verapamil and after lengthy discussion, got the EKG from ER that shows this is sinus tachycardia. Then, we will give IV Lopressor 5 mg, then p.o. Lopressor 25 and since then, the patient's heart rate is fairly stable. The patient had recent echo done twice, one in 06/2017, one in 10/2017, shows a preserved left ventricular function, right ventricular systolic pressure of 41. RECOMMENDATIONS: We will continue beta-codi. We told the patient to avoid taking dual nebulizer treatment. Use Xopenex. Also, avoid taking Boost and Adderall together, it causes tachycardia. We will continue low dose of beta codi. We will get a MUGA scan to assess LV and RV function before next chemo. We will follow with you. We will discharge the patient after MUGA scan is done. Thank you, Dr. Wood, for providing us the opportunity in taking care of the patient, Elsa Quinn. Nikita Mathews MD
--- NOTE | 2018-02-20 01:50 | CARD ---
APPROVED REPORT Date of service: 02/18/2018 INDICATION Tachycardia,Evaluate LV and RV EF PROCEDURE The above named patient recieved 22.2 millicuries of Tc99m tagged red blood cells intravenously. After achieving equilibrium, gated imaging of 16/frame/cycle was performed utillizing Gamma camera interfaced with a digital computer and gated device. Gated imaging was then performed in the left anterior oblique, anterior, and the left lateral projections. Findings Left Ventricle: The quality of the study is good. The left ventricle is moderately dilated enlarged with thickened myocardium. The right ventricle is normal in size. Wall motion study shows moderate diffuse hypokinesis of the left ventricle. RV wall motion is normal. The right atrium is dynamic. The spleen appears markedly enlarged. The remainder of the study is unremarkable. Impressions Moderate LV dysfunction with diffuse hypokinesis. LVEF = 35%. Normal RV wall motion. Marked splenomegaly.
== END 2018-02-18 16:58 | disposition home or self-care (01) ==
LOC: ED 17:27 → ERH 20:30 → INTOOBSV 20:30 → ERH 20:53 → 2RSO 23:35
PROVIDERS: ADMIT Internal Medicine Medical Oncology; ATTEND Internal Medicine Medical Oncology
DX: R00.0 Tachycardia, unspecified (principal); J44.9 Chronic obstructive pulmonary disease, unspecified; C34.90 Malignant neoplasm of unspecified part of unspecified bronchus or lung; Z92.21 Personal history of antineoplastic chemotherapy; Z87.891 Personal history of nicotine dependence
CPT/HCPCS: 36415; 71045; 71250; 74176; 78472; 80048; 80053; 82803; 83880; 84443; 84484; 85025; 85610; 85730; 87040; 93005; 93970; 94640; 96365; 96375; 99285; G0378; J0696

== ENCOUNTER 2018-03-31 21:35 | Inpatient (IN) | payer OTHER ==
[2018-03-31] MEDS ORDERED: Albuterol-Ipratrop 3 mg / 0.5 (3 ml) UD IH STA ×2 (22:13→22:15)
[2018-03-31] MEDS ORDERED: Cefepime IV 2 gm in NS 2 GM/100 ML BAG IVPB STA (23:00)
[2018-03-31] MEDS ORDERED: Vancomycin 1gm in NS 250ml 1 GM/250 ML BAG IVPB STA (23:00)
--- NOTE | 2018-03-31 23:09 | ED PDOC ---
Arrival/HPI - General Historian: Patient - History of Present Illness Narrative History of Present Illness (Text): 03/31/18 23:05 62 year old female former smoker, whose past medical history includes COPD, Stage 4 Lung Cancer (on chemotherapy), presents to the emergency department with coughing, for 2 weeks. Patient also informs of hemoptysis for the past 2 days. Patient is currently being seen by Dr. Wood for her cancer. Patient states she was being treated for her cough with antibiotics, which she took for 7 days with no improvement. Patient does inform of shortness of breath. Patient denies any chest pain, nausea, headache, dizziness, abdominal pain, back pain, or any other complaints. PMD : Ruben Onc : [place] Time/Duration: > week (2 weeks) <Kristi Thompson PA-C - Last Filed: 04/01/18 16:33> <Oneil Gomez - Last Filed: 04/02/18 06:11> - General Chief Complaint: Cough, Cold, Congestion Time Seen by Provider: 03/31/18 22:13 Past Medical History - Provider Review Nursing Documentation Reviewed: Yes - Past History Past History: No Previous - Infectious Disease Hx of Infectious Diseases: None - Reproductive Menopause: Yes - Past Medical History Past Medical History: No Previous - Cardiac Hx Cardiac Disorders: No - Pulmonary Hx Lung Cancer: Yes (on chemo) - Neurological Hx Neurological Disorder: No - HEENT Hx HEENT Disorder: No - Renal Hx Renal Disorder: Yes Hx Renal Failure: Yes - Endocrine/Metabolic Hx Endocrine Disorders: No - Hematological/Oncological Hx Blood Disorders: Yes Hx Blood Transfusions: Yes - Integumentary Hx Dermatological Disorder: No - Musculoskeletal/Rheumatological Hx Musculoskeletal Disorders: No - Gastrointestinal Hx Gastrointestinal Disorders: No - Genitourinary/Gynecological Hx Genitourinary Disorders: No - Psychiatric Hx Psychophysiologic Disorder: No Hx Substance Use: No - Surgical History Other/Comment: R chest port - Anesthesia Hx Anesthesia: Yes Hx Anesthesia Reactions: No Hx Malignant Hyperthermia: No - Suicidal Assessment Feels Threatened In Home Enviroment: No <Kristi Thompson PA-C - Last Filed: 04/01/18 16:33> Family/Social History - Physician Review Nursing Documentation Reviewed: Yes Family/Social History: No Known Family HX Smoking Status: Former Smoker Hx Alcohol Use: No Hx Substance Use: No Hx Substance Use Treatment: No <Kristi Thompson PA-C - Last Filed: 04/01/18 16:33> Allergies/Home Meds <Kristi Thompson PA-C - Last Filed: 04/01/18 16:33> <Oneil Gomez - Last Filed: 04/02/18 06:11> Allergies/Adverse Reactions: Allergies No Known Allergies Allergy (Verified 03/31/18 21:52) Home Medications: Home Meds Medication Instructions Recorded Confirmed Dextroamphetamine/Amphetamine 20 mg PO TID 10/28/17 03/31/18 [Adderall 20 mg Tablet] RX: Potassium Chloride [K-Dur 20 10 meq PO TID 10/28/17 03/31/18 mEq ER Tab] Nystatin [Nystatin Oral Susp] 1 tab PO TID 12/22/17 03/31/18 RX: Albuterol 0.083% [Albuterol 1 vial IH QID PRN 12/22/17 03/31/18 0.083% Inhal Dot (2.5 mg/3 ml) UD] RX: Ipratropium 0.02% [Atrovent] 1 vial IH QID PRN 12/22/17 03/31/18 Review of Systems - Physician Review All systems were reviewed & negative as marked: Yes - Review of Systems Respiratory: SOB, Cough, Other (hemoptysis ) Cardiovascular: absent: Chest Pain Gastrointestinal: absent: Abdominal Pain, Nausea Musculoskeletal: absent: Back Pain Neurological: absent: Headache, Dizziness <Kristi Thompson PA-C - Last Filed: 04/01/18 16:33> Physical Exam Vital Signs Reviewed: Yes Vital Signs Temp Pulse Resp BP Pulse Ox 03/31/18 21:48 97 F L 109 H 19 140/92 H 94 L Temperature: Afebrile Blood Pressure: Hypertensive Pulse: Tachycardic Respiratory Rate: Normal Appearance: Positive for: Well-Appearing, Non-Toxic, Comfortable Pain Distress: None Mental Status: Positive for: Alert and Oriented X 3 - Systems Exam Head: Present: Atraumatic, Normocephalic Pupils: Present: PERRL Extroacular Muscles: Present: EOMI Conjunctiva: Present: Normal Mouth: Present: Moist Mucous Membranes Neck: Present: Normal Range of Motion Respiratory/Chest: Present: Wheezes (bilateral expiratory wheezing). No: Respiratory Distress Cardiovascular: Present: Regular Rate and Rhythm, Normal S1, S2. No: Murmurs Abdomen: No: Tenderness, Distention, Peritoneal Signs Back: Present: Normal Inspection Upper Extremity: Present: Normal Inspection, Other (clubbing in nails). No: Cyanosis, Edema Lower Extremity: Present: Normal Inspection. No: Edema Neurological: Present: GCS=15, CN II-XII Intact, Speech Normal Skin: Present: Warm, Dry, Normal Color. No: Rashes Psychiatric: Present: Alert, Oriented x 3, Normal Insight, Normal Concentration <Kristi Thompson PA-C - Last Filed: 04/01/18 16:33> Vital Signs Temp Pulse Resp BP Pulse Ox 04/01/18 02:00 109 H 18 124/78 98 03/31/18 21:48 97 F L 109 H 19 140/92 H 94 L <Oneil Gomez - Last Filed: 04/02/18 06:11> Medical Decision Making ED Course and Treatment: 03/31/18 23:15 Impression: 62 year old female presents with persistent cough. Plan: -- CT Chest -- EKG -- Labs -- Medications -- O2 canula -- Urinalysis -- Reassess and disposition Prior Visits: Notes and results from previous visits were reviewed. Progress Notes: Case d/w Dr. Wood, who request that a CT chest w/ IV contrast be ordered to r/o lung abscess, patient be given cefepime IV, vancomycin IV, to order : blood cx, urine cx, fungal culture/gram stain, sputum culture, xopenex tid, admit under Dr. Miranda's service (she will notify him) and consult with Dr. Stuart. Orders verified with Dr. Wood and placed. Patient notified of plan to admit and r/o lung infection/abscess, which she agrees to. Labs reviewed : wbc 20, hgb 10.7, lactate 2.6, ua +trace leuks, +moderate blood. Code sepsis called. On re-evaluation, patient is smiling in bed, comfortable, is reading a magazine, she is cheerful and in good spirits. Reports no chest pain or SOB. CT chest is still pending. - RAD Interpretation Radiology Orders: 03/31/18 22:13 CHEST TWO VIEWS (PA/LAT) [RAD] Stat - Medication Orders Current Medication Orders: Discontinued Medications Albuterol/Ipratropium (Duoneb 3 Mg/0.5 Mg (3 Ml) Ud) 3 ml IH STAT STA Stop: 03/31/18 22:14 Albuterol/Ipratropium (Duoneb 3 Mg/0.5 Mg (3 Ml) Ud) 3 ml IH STAT STA Stop: 03/31/18 22:16 Methylprednisolone (Solu-Medrol) 125 mg IVP STAT STA Stop: 03/31/18 22:14 <Kristi Thompson PA-C - Last Filed: 04/01/18 16:33> ED Course and Treatment: 04/02/18 06:11 The documented history was done by the physician non destructive testing engineer. The documented physical exam was done by the physician non destructive testing engineer. The documented procedures were done by the physician non destructive testing engineer, I was available for consultation during the PA/BULLDOZER ENGINEER evaluation. The chart was reviewed by me, and I agree with the management and plan. - Medication Orders Current Medication Orders: Albuterol/Ipratropium (Duoneb 3 Mg/0.5 Mg (3 Ml) Ud) 3 ml IH Q2H PRN PRN Reason: Shortness of Breath Albuterol/Ipratropium (Duoneb 3 Mg/0.5 Mg (3 Ml) Ud) 3 ml IH [id number] [facility] Last Admin: 04/02/18 01:14 Dose: 3 ml Linezolid (Zyvox 600mg/300ml D5w) 600 mg in 300 mls @ 200 mls/hr IVPB Q12 [facility]; Protocol Stop: 04/06/18 10:01 Last Admin: 04/01/18 22:21 Dose: 200 mls/hr eMAR Start Stop Document 04/01/18 22:21 RM (Rec: 04/01/18 22:21 [email or web address]) Intravenous Solution Start Date 04/01/18 Start Time 22:21 End Date 04/01/18 End time 23:51 Total Infusion Time 90 Meropenem (Merrem Iv 1 Gm Premix) 1 gm in 50 mls @ 12.5 mls/hr IVPB Q12 [facility]; Protocol Stop: 04/08/18 09:01 Last Admin: 04/01/18 22:20 Dose: 12.5 mls/hr eMAR Start Stop Document 04/01/18 22:20 RM (Rec: 04/01/18 22:21 RM [id number]) Intravenous Solution Start Date 04/01/18 Start Time 23:50 End Date 04/02/18 End time 03:50 Total Infusion Time 240 Non-Formulary Medication (Dextroamphetamine/Amphetamine [Adderall 20 Mg Tablet]) 20 mg PO TID [facility] Last Admin: 04/01/18 18:37 Dose: Not Given Non-Admin Reason: NOT AVAILABLE Nystatin (Nystatin Oral Susp) 5 ml PO TID [facility] Last Admin: 04/01/18 18:40 Dose: 5 ml Potassium Chloride (Klor-Con 10) 10 meq PO TID [facility] Last Admin: 04/01/18 18:40 Dose: 10 meq Discontinued Medications Albuterol/Ipratropium (Duoneb 3 Mg/0.5 Mg (3 Ml) Ud) 3 ml IH STAT STA Stop: 03/31/18 22:14 Last Admin: 03/31/18 22:13 Dose: 3 ml Albuterol/Ipratropium (Duoneb 3 Mg/0.5 Mg (3 Ml) Ud) 3 ml IH STAT STA Stop: 03/31/18 22:16 Last Admin: 03/31/18 22:15 Dose: 3 ml Cefepime HCl (Maxipime 2gm) 2 gm in 100 mls @ 100 mls/hr IVPB STAT STA; Protocol Stop: 03/31/18 23:59 Last Admin: 04/01/18 00:00 Dose: 100 mls/hr eMAR Start Stop Document 04/01/18 00:00 AD (Rec: 04/01/18 02:23 AD [id number]) Intravenous Solution Start Date 04/01/18 Start Time 00:00 Vancomycin HCl (Vancomycin 1gm) 1 gm in 250 mls @ 167 mls/hr IVPB STAT STA; Protocol Stop: 04/01/18 00:29 Last Admin: 04/01/18 03:00 Dose: 167 mls/hr eMAR Start Stop Document 04/01/18 03:00 AD (Rec: 04/01/18 03:43 AD [id number]) Intravenous Solution Start Date 04/01/18 Start Time 03:00 Sodium Chloride (Sodium Chloride 0.9%) 1,000 mls @ 100 mls/hr IV .Q10H STA Stop: 04/01/18 09:12 Last Admin: 04/01/18 00:00 Dose: 100 mls/hr eMAR Start Stop Document 04/01/18 00:00 AD (Rec: 04/01/18 02:23 AD [id number]) Intravenous Solution Start Date 04/01/18 Start Time 00:00 Magnesium Sulfate (Magnesium Sulfate 2 Gm/50 Ml Water) 2 gm in 50 mls @ 50 mls/hr IVPB ONCE ONE Stop: 04/01/18 08:31 Last Admin: 04/01/18 08:25 Dose: 50 mls/hr eMAR Start Stop Document 04/01/18 08:25 KAA (Rec: 04/01/18 08:25 KAA [facility] [place] [email or web address] Intravenous Solution Start Date 04/01/18 Start Time 08:25 End Date 04/01/18 End time 09:25 Total Infusion Time 60 Meropenem (Merrem Iv 1 Gm Premix) 1 gm in 50 mls @ 12.5 mls/hr IVPB Q8 [facility]; Protocol Stop: 04/08/18 09:01 Levalbuterol HCl (Xopenex) 1.25 mg IH Q8H [facility] Stop: 04/02/18 07:00 Last Admin: 03/31/18 23:15 Dose: 1.25 mg Methylprednisolone (Solu-Medrol) 125 mg IVP STAT STA Stop: 03/31/18 22:14 Last Admin: 03/31/18 23:30 Dose: 125 mg IVP Administration Document 03/31/18 23:30 AD (Rec: 04/01/18 02:24 AD [id number]) Charges for Administration # of IVP Administrations 1 Potassium Chloride (K-Dur 20 Meq Er Tab) 40 meq PO STAT STA Stop: 04/01/18 03:52 Last Admin: 04/01/18 04:00 Dose: 40 meq Potassium Chloride (K-Dur 20 Meq Er Tab) 10 meq PO TID [facility] <Oneil Gomez - Last Filed: 04/02/18 06:11> - PA / BULLDOZER ENGINEER / Resident Statement / has reviewed & agrees with the documentation as recorded. - Scribe Statement The provider has reviewed the documentation as recorded by the Huibe Dez Whitman Provider Scribe Attestation: All medical record entries made by the Scribe were at my direction and personally dictated by me. I have reviewed the chart and agree that the record accurately reflects my personal performance of the history, physical exam, medical decision making, and the department course for this patient. I have also personally directed, reviewed, and agree with the discharge instructions and disposition. <Kristi Thompson PA-C - Last Filed: 04/01/18 16:33> Disposition/Present on Arrival - Present on Arrival Any Indicators Present on Arrival: No History of DVT/PE: No History of Uncontrolled Diabetes: No Urinary Catheter: No History of Decub. Ulcer: No History Surgical Site Infection Following: None - Disposition Have Diagnosis and Disposition been Completed?: Yes Disposition Time: 23:11 Patient Plan: Admission <Kristi Thompson PA-C - Last Filed: 04/01/18 16:33> <Oneil Gomez - Last Filed: 04/02/18 06:11> - Disposition Diagnosis: COPD (chronic obstructive pulmonary disease), Lung cancer, Cough Disposition: HOSPITALIZED Patient Problems: Current Active Problems Problem Status Onset COPD (chronic obstructive pulmonary disease) Acute Cough Acute Lung cancer Acute Condition: STABLE
[2018-03-31] MEDS ORDERED: Sodium Chloride 0.9% 1,000 ML IV STA (23:13)
[2018-03-31] MEDS ORDERED: Levalbuterol 1.25 MG/3 ML Inhal Soln UD IH SCH (23:15)
[2018-04-01 01:17] LABS: BASO # 0.01 K/mm3 (0.0-2.0); GRAN # 17.7 (1.4-6.5); GRAN % 87.9 % (50.0-68.0); HEMOGLOBIN 10.7 g/dL (12.0-16.0); LYMPH # 1.3 (1.2-3.4); LYMPH % 6.7 % (22.0-35.0); MEAN CELL VOLUME 88.3 fl (80.0-105.0); MEAN CORPUSCULAR HEMOGLOBIN 28.5 pg (25.0-35.0); MEAN CORPUSCULAR HGB CONC 32.2 g/dl (31.0-37.0); MEAN PLATELET VOLUME 8.5 fl (7.0-11.0); MONO # 1.1 (0.1-0.6); MONO % 5.4 % (1.0-6.0); RBC 3.76 10^6/uL (3.5-6.1); RED CELL DISTRIBUTION WIDTH 21.7 % (11.5-14.5); WHITE BLOOD COUNT 20.1 10^3/ul (4.5-11.0)
[2018-04-01 01:18] LABS: URINE BILIRUBIN NEGATIVE (NEGATIVE); URINE BLOOD MODERATE (NEGATIVE); URINE GLUCOSE (UA) 100 mg/dL (NEGATIVE); URINE LEUKOCYTE ESTERASE TRACE Leu/uL (NEGATIVE); URINE PROTEIN 100 mg/dL (<30 mg/dL); URINE UROBILINOGEN 0.2 E.U./dL (<1 E.U./dL)
[2018-04-01 01:23] LABS: URINE APPEARANCE SL CLOUDY (CLEAR); URINE COLOR YELLOW (YELLOW); VENOUS BLOOD GAS BASE EXCESS 4.4 mmol/L (0.0-2.0); VENOUS BLOOD GAS PO2 46 mm/Hg (30-55); VENOUS BLOOD PH 7.38 (7.32-7.43)
[2018-04-01 01:30] LABS: ALB/GLOB RATIO 0.9 (1.1-1.8); ALBUMIN 3.3 g/dL (3.0-4.8); ALT/SGPT 17 U/L (7-56); AST/SGOT 22 U/L (14-36); BLOOD UREA NITROGEN 40 mg/dL (7-21); GFR NON-AFRICAN AMERICAN 46; INR 1.29; PARTIAL THROMBOPLASTIN TIME 29.7 Seconds (25.1-36.5); PROTHROMBIN TIME 14.8 SECONDS (9.4-12.5)
[2018-04-01 01:38] LABS: URINE BACTERIA FEW (NEG)
[2018-04-01 01:41] LABS: B-TYPE NATRIURETIC PEPTIDE 2810 pg/mL (0-450); TROPONIN I < 0.01 ng/mL
[2018-04-01] MEDS ORDERED: Iodixanol 320 MG/ML 100 ML BOTTLE IV ONE (01:53)
[2018-04-01] MEDS ORDERED: Potassium Chloride 20 mEq ER Tab PO STA (03:51)
--- NOTE | 2018-04-01 04:44 | PCM.SEPTIC ---
<Trent Lundy - Last Filed: 04/01/18 04:32> Sepsis Progress Note - Reassessment Type Date of Evaluation: 04/01/18 Time of Evaluation: 04:32 Reassessment Type: Non-invasive reassessment - Non Invasive Reassessment Were the most recent vital sign reviewed: Yes Vital Sign (Latest): Temp Pulse Resp BP Pulse Ox 97 F L 109 H 18 124/78 98 03/31/18 21:48 04/01/18 02:00 04/01/18 02:00 04/01/18 02:00 04/01/18 02:00 Cardiovascular: Yes: Regular Rate, Rhythm, Tachycardia Respiratory: Yes: Normal Breath Sounds, Decreased Breath Sounds. No: Accessory Muscle Use, Wheezing, Respiratory Distress Capillary Refill: Normal (Less than 2 sec) Skin: Warm, Dry, Pale <Perla Chowdhury - Last Filed: 04/01/18 10:29> Sepsis Progress Note - Non Invasive Reassessment Vital Sign (Latest): Temp Pulse Resp BP Pulse Ox 97 F L 104 H 20 115/75 97 03/31/18 21:48 04/01/18 07:56 04/01/18 05:10 04/01/18 03:55 04/01/18 03:55 Attending/Attestation - Attestation I have personally seen and examined this patient.: Yes I have fully participated in the care of the patient.: Yes I have reviewed all pertinent clinical information, including history, physical exam and plan: Yes Notes (Text): 04/01/18 10:29 Pt's lactate level has improved.
[2018-04-01 04:56] LABS: VENOUS BLOOD GAS BASE EXCESS 4.2 mmol/L (0.0-2.0); VENOUS BLOOD GAS PO2 104 mm/Hg (30-55); VENOUS BLOOD PH 7.43 (7.32-7.43)
[2018-04-01 05:16] VITALS: BMI 22.9
--- NOTE | 2018-04-01 06:35 | CP.PCM.HP ---
<DixonAide - Last Filed: 04/01/18 09:42> History of Present Illness - History of Present Illness History of Present Illness: H&P for Brittney Barakat PGY3 This is a 62yo female with past medical history of stage IV non-small cell lung ca (on chemo), COPD, L persistent pleural effusion, post-obstructive pneumonitis and ADHD who came to ED for fevers and cough. Patient reports she has been having fever of around 101 at home with "peach" colored sputum for several weeks. She was on Levaquin and then switched to doxycyline at home. Patient had chemotherapy of Paclitaxel about 10 days ago. She reports having shortness of breath which she states she has constantly, but was getting worse. She denies chest pain, nausea/vomiting/diarrhea, numbness/tingling, dysuria or hematuria. Past medical history: Non-small cell Lung Ca stage IV (on chemo), COPD, L persistent pleural effusion, L adrenal mass, post obstructive pneumonitis, ADHD Past surgical history: Breast reduction (1999), Inguinal hernia repair (2011) Home meds: Reviewed as per MAR Allergies: NKDA Social history: Former heavy smoker, denies EtOH or drug use. Lives with teenage son Family history: Sister- from Leukemia age 32, Dad-HTN/DM, Mom- HTN PMD: Dr. Miranda Oncologist: Dr. Wood Present on Admission - Present on Admission Any Indicators Present on Admission: No Review of Systems - Review of Systems All systems: reviewed and no additional remarkable complaints except Review of Systems: 12 point ROS reviewed as per HPI and is otherwise negative Past Patient History - Infectious Disease Hx of Infectious Diseases: None - Past Social History Smoking Status: Former Smoker - CARDIAC Hx Cardiac Disorders: No - PULMONARY Hx Respiratory Disorders: Yes Hx Chronic Obstructive Pulmonary Disease (COPD): Yes - NEUROLOGICAL Hx Neurological Disorder: No - HEENT Hx HEENT Problems: No - RENAL Hx Chronic Kidney Disease: Yes Hx Renal Failure: Yes - ENDOCRINE/METABOLIC Hx Endocrine Disorders: No - HEMATOLOGICAL/ONCOLOGICAL Hx Blood Disorders: Yes - INTEGUMENTARY Hx Dermatological Problems: No - MUSCULOSKELETAL/RHEUMATOLOGICAL Hx Musculoskeletal Disorders: No Hx Falls: Yes - GASTROINTESTINAL Hx Gastrointestinal Disorders: No - GENITOURINARY/GYNECOLOGICAL Hx Genitourinary Disorders: No - PSYCHIATRIC Hx Psychophysiologic Disorder: No - SURGICAL HISTORY Hx Surgeries: Yes Other/Comment: R chest port. Hernia Repair. Breast Reduction - ANESTHESIA Hx Anesthesia: Yes Hx Anesthesia Reactions: No Hx Malignant Hyperthermia: No Meds Allergies/Adverse Reactions: Allergies Allergy/AdvReac Type Severity Reaction Status Date / Time No Known Allergies Allergy Verified 03/31/18 21:52 Physical Exam - Constitutional Appears: No Acute Distress, Chronically Ill - Head Exam Head Exam: ATRAUMATIC, NORMAL INSPECTION, NORMOCEPHALIC - Eye Exam Eye Exam: EOMI, Normal appearance, PERRL Pupil Exam: NORMAL ACCOMODATION, PERRL - ENT Exam ENT Exam: Mucous Membranes Moist, Normal Exam, Normal Oropharynx - Neck Exam Neck exam: Positive for: Full Rom, Normal Inspection. Negative for: Tenderness - Respiratory Exam Respiratory Exam: Decreased Breath Sounds (bilaterally ), Rales (LLQ), Rhonchi (LLQ ), NORMAL BREATHING PATTERN. absent: Wheezes, Respiratory Distress - Cardiovascular Exam Cardiovascular Exam: REGULAR RHYTHM, RRR, +S1, +S2. absent: Gallop, Rubs, Systolic Murmur - GI/Abdominal Exam GI & Abdominal Exam: Normal Bowel Sounds, Soft. absent: Firm, Guarding, Mass, Rebound, Rigid, Tenderness - Extremities Exam Extremities exam: Positive for: normal capillary refill, normal inspection, pedal pulses present. Negative for: calf tenderness, pedal edema - Neurological Exam Neurological exam: Alert, CN II-XII Intact, Normal Gait, Oriented x3 - Psychiatric Exam Psychiatric exam: Normal Affect, Normal Mood Additional comments: No suicidal or homicidal ideation. Pressured speech. - Skin Skin Exam: Dry, Intact, Normal Color, Warm Additional comments: R port in place in chest- clean and dry Results - Vital Signs Recent Vital Signs: Last Vital Signs Temp 97 F L 03/31/18 21:48 Pulse 109 H 04/01/18 02:00 Resp 20 04/01/18 05:10 BP 124/78 04/01/18 02:00 Pulse Ox 98 04/01/18 02:00 - Labs Result Diagrams: 04/01/18 00:35 04/01/18 00:35 Labs: Laboratory Results - last 24 hr 04/01/18 04/01/18 04/01/18 00:35 00:35 00:35 WBC 20.1 H D RBC 3.76 Hgb 10.7 L Hct 33.2 L MCV 88.3 MCH 28.5 MCHC 32.2 RDW 21.7 H Plt Count 424 MPV 8.5 Gran % 87.9 H Lymph % (Auto) 6.7 L [place] % (Auto) 5.4 Eos % (Auto) 0.0 L Baso % (Auto) 0.0 Gran # 17.70 H Lymph # (Auto) 1.3 [place] # (Auto) 1.1 H Eos # (Auto) 0.0 Baso # (Auto) 0.01 PT 14.8 H INR 1.29 APTT 29.7 pO2 VBG pH VBG pCO2 VBG HCO3 VBG Total CO2 VBG O2 Sat (Calc) VBG Base Excess VBG Potassium Sodium Chloride Glucose Lactate FiO2 Potassium Carbon Dioxide Anion Gap BUN Creatinine Est GFR ( Amer) Est GFR (Non-Af Amer) Random Glucose Calcium Magnesium Total Bilirubin AST ALT Alkaline Phosphatase Lactate Dehydrogenase Total Creatine Kinase Troponin I NT-Pro-B Natriuret Pep Total Protein Albumin Globulin Albumin/Globulin Ratio Venous Blood Potassium Urine Color Yellow Urine Appearance Sl cloudy Urine pH 6.0 Ur Specific [place] 1.020 Urine Protein 100 H Urine Glucose (UA) 100 H Urine Ketones Negative Urine Blood Moderate H Urine Nitrate Negative Urine Bilirubin Negative Urine Urobilinogen 0.2 Ur Leukocyte Esterase Trace H Urine RBC 1 - 3 Urine WBC 1 - 3 Ur Epithelial Cells 3 - 4 Urine Bacteria Few 04/01/18 04/01/18 04/01/18 00:35 00:35 03:35 WBC RBC Hgb Hct MCV MCH MCHC RDW Plt Count MPV Gran % Lymph % (Auto) [place] % (Auto) Eos % (Auto) Baso % (Auto) Gran # Lymph # (Auto) [place] # (Auto) Eos # (Auto) Baso # (Auto) PT INR APTT pO2 46 104 H VBG pH 7.38 7.43 VBG pCO2 52.0 44.0 VBG HCO3 30.8 H 29.2 H VBG Total CO2 32.4 H 30.6 H VBG O2 Sat (Calc) 82.9 H 98.6 H VBG Base Excess 4.4 H 4.2 H VBG Potassium 3.1 L 3.2 L Sodium 129.0 L 131 L 128.0 L Chloride 95.0 L 91 L 96.0 L Glucose 201 H 160 H Lactate 2.6 H 1.7 FiO2 21.0 21.0 Potassium 3.1 L Carbon Dioxide 30 Anion Gap 14 BUN 40 H Creatinine 1.2 Est GFR ( Amer) 55 Est GFR (Non-Af Amer) 46 Random Glucose 192 H Calcium 9.0 Magnesium 1.6 L Total Bilirubin 0.6 AST 22 ALT 17 Alkaline Phosphatase 147 H D Lactate Dehydrogenase 331 L Total Creatine Kinase < 20 L Troponin I < 0.01 D NT-Pro-B Natriuret Pep 2810 H Total Protein 6.9 Albumin 3.3 Globulin 3.6 Albumin/Globulin Ratio 0.9 L Venous Blood Potassium 3.1 L 3.2 L Urine Color Urine Appearance Urine pH Ur Specific [place] Urine Protein Urine Glucose (UA) Urine Ketones Urine Blood Urine Nitrate Urine Bilirubin Urine Urobilinogen Ur Leukocyte Esterase Urine RBC Urine WBC Ur Epithelial Cells Urine Bacteria Assessment & Plan - Assessment and Plan (Free Text) Assessment: 1. Sepsis - secondary to LLL pneumonia v. lung abscess seen on chest CT 2. Hyponatremia 3. Hypokalemia 4. Non-small cell lung ca stage IV 5. COPD 6. ADHD Plan: Labs and imaging reviewed. ID consulted. Patient is on Merrem and Zyvox. Lactate has normalized. Septic work up pending. Patient is on IV fluids. Electrolytes replaced. Continue nebulizer treatment. Will continue Adderall for ADHD. Pain is controlled and patient is tolerating diet. Will consult IR for possible lung abscess for aspiration. Oncology is following patient. Case seen, discussed and reviewed with Dr. Ruben Metcalf PGY3 - Date & Time Date: 04/01/18 Time: 09:43 <Alejandro Miranda - Last Filed: 04/01/18 21:23> Results - Vital Signs Recent Vital Signs: Last Vital Signs Temp 97.4 F L 04/01/18 16:29 Pulse 118 H 04/01/18 16:29 Resp 20 04/01/18 16:29 BP 116/80 04/01/18 16:29 Pulse Ox 95 04/01/18 16:29 - Labs Result Diagrams: 04/01/18 00:35 04/01/18 00:35 Labs: Laboratory Results - last 24 hr 04/01/18 04/01/18 04/01/18 00:35 00:35 00:35 WBC 20.1 H D RBC 3.76 Hgb 10.7 L Hct 33.2 L MCV 88.3 MCH 28.5 MCHC 32.2 RDW 21.7 H Plt Count 424 MPV 8.5 Gran % 87.9 H Lymph % (Auto) 6.7 L [place] % (Auto) 5.4 Eos % (Auto) 0.0 L Baso % (Auto) 0.0 Gran # 17.70 H Lymph # (Auto) 1.3 [place] # (Auto) 1.1 H Eos # (Auto) 0.0 Baso # (Auto) 0.01 PT 14.8 H INR 1.29 APTT 29.7 pO2 VBG pH VBG pCO2 VBG HCO3 VBG Total CO2 VBG O2 Sat (Calc) VBG Base Excess VBG Potassium Sodium Chloride Glucose Lactate FiO2 Potassium Carbon Dioxide Anion Gap BUN Creatinine Est GFR ( Amer) Est GFR (Non-Af Amer) Random Glucose Hemoglobin A1c Calcium Magnesium Total Bilirubin AST ALT Alkaline Phosphatase Lactate Dehydrogenase Total Creatine Kinase Troponin I NT-Pro-B Natriuret Pep Total Protein Albumin Globulin Albumin/Globulin Ratio Procalcitonin Venous Blood Potassium Urine Color Yellow Urine Appearance Sl cloudy Urine pH 6.0 Ur Specific [place] 1.020 Urine Protein 100 H Urine Glucose (UA) 100 H Urine Ketones Negative Urine Blood Moderate H Urine Nitrate Negative Urine Bilirubin Negative Urine Urobilinogen 0.2 Ur Leukocyte Esterase Trace H Urine RBC 1 - 3 Urine WBC 1 - 3 Ur Epithelial Cells 3 - 4 Urine Bacteria Few Ur L.pneumophila Ag 04/01/18 04/01/18 04/01/18 00:35 00:35 00:35 WBC RBC Hgb Hct MCV MCH MCHC RDW Plt Count MPV Gran % Lymph % (Auto) [place] % (Auto) Eos % (Auto) Baso % (Auto) Gran # Lymph # (Auto) [place] # (Auto) Eos # (Auto) Baso # (Auto) PT INR APTT pO2 46 VBG pH 7.38 VBG pCO2 52.0 VBG HCO3 30.8 H VBG Total CO2 32.4 H VBG O2 Sat (Calc) 82.9 H VBG Base Excess 4.4 H VBG Potassium 3.1 L Sodium 129.0 L 131 L Chloride 95.0 L 91 L Glucose 201 H Lactate 2.6 H FiO2 21.0 Potassium 3.1 L Carbon Dioxide 30 Anion Gap 14 BUN 40 H Creatinine 1.2 Est GFR ( Amer) 55 Est GFR (Non-Af Amer) 46 Random Glucose 192 H Hemoglobin A1c 6.1 Calcium 9.0 Magnesium 1.6 L Total Bilirubin 0.6 AST 22 ALT 17 Alkaline Phosphatase 147 H D Lactate Dehydrogenase 331 L Total Creatine Kinase < 20 L Troponin I < 0.01 D NT-Pro-B Natriuret Pep 2810 H Total Protein 6.9 Albumin 3.3 Globulin 3.6 Albumin/Globulin Ratio 0.9 L Procalcitonin Venous Blood Potassium 3.1 L Urine Color Urine Appearance Urine pH Ur Specific [place] Urine Protein Urine Glucose (UA) Urine Ketones Urine Blood Urine Nitrate Urine Bilirubin Urine Urobilinogen Ur Leukocyte Esterase Urine RBC Urine WBC Ur Epithelial Cells Urine Bacteria Ur L.pneumophila Ag 04/01/18 04/01/18 04/01/18 03:35 05:00 08:30 WBC RBC Hgb Hct MCV MCH MCHC RDW Plt Count MPV Gran % Lymph % (Auto) [place] % (Auto) Eos % (Auto) Baso % (Auto) Gran # Lymph # (Auto) [place] # (Auto) Eos # (Auto) Baso # (Auto) PT INR APTT pO2 104 H 77 H VBG pH 7.43 7.39 VBG pCO2 44.0 46.0 VBG HCO3 29.2 H 27.8 VBG Total CO2 30.6 H 29.2 H VBG O2 Sat (Calc) 98.6 H 96.9 H VBG Base Excess 4.2 H 2.2 H VBG Potassium 3.2 L 3.4 L Sodium 128.0 L 130.0 L Chloride 96.0 L 96.0 L Glucose 160 H 188 H Lactate 1.7 1.2 FiO2 21.0 21.0 Potassium Carbon Dioxide Anion Gap BUN Creatinine Est GFR ( Amer) Est GFR (Non-Af Amer) Random Glucose Hemoglobin A1c Calcium Magnesium Total Bilirubin AST ALT Alkaline Phosphatase Lactate Dehydrogenase Total Creatine Kinase Troponin I NT-Pro-B Natriuret Pep Total Protein Albumin Globulin Albumin/Globulin Ratio Procalcitonin 0.30 Venous Blood Potassium 3.2 L 3.4 L Urine Color Urine Appearance Urine pH Ur Specific [place] Urine Protein Urine Glucose (UA) Urine Ketones Urine Blood Urine Nitrate Urine Bilirubin Urine Urobilinogen Ur Leukocyte Esterase Urine RBC Urine WBC Ur Epithelial Cells Urine Bacteria Ur L.pneumophila Ag 04/01/18 13:30 WBC RBC Hgb Hct MCV MCH MCHC RDW Plt Count MPV Gran % Lymph % (Auto) [place] % (Auto) Eos % (Auto) Baso % (Auto) Gran # Lymph # (Auto) [place] # (Auto) Eos # (Auto) Baso # (Auto) PT INR APTT pO2 VBG pH VBG pCO2 VBG HCO3 VBG Total CO2 VBG O2 Sat (Calc) VBG Base Excess VBG Potassium Sodium Chloride Glucose Lactate FiO2 Potassium Carbon Dioxide Anion Gap BUN Creatinine Est GFR ( Amer) Est GFR (Non-Af Amer) Random Glucose Hemoglobin A1c Calcium Magnesium Total Bilirubin AST ALT Alkaline Phosphatase Lactate Dehydrogenase Total Creatine Kinase Troponin I NT-Pro-B Natriuret Pep Total Protein Albumin Globulin Albumin/Globulin Ratio Procalcitonin Venous Blood Potassium Urine Color Urine Appearance Urine pH Ur Specific [place] Urine Protein Urine Glucose (UA) Urine Ketones Urine Blood Urine Nitrate Urine Bilirubin Urine Urobilinogen Ur Leukocyte Esterase Urine RBC Urine WBC Ur Epithelial Cells Urine Bacteria Ur L.pneumophila Ag Negative Assessment & Plan - Assessment and Plan (Free Text) Plan: Pt seen and examined. I have reviewed the note of the hospital medical biller and agree with it. I have discussed the assessment and plan with the resident. I have reviewed the patient's labs and medications. Pt with pneumonia- hospital acquired. She will need ID evaluation. Will get BCx and UCx. Pt will need IR e valuation to see if pt has an abscess. Pain is controlled. Eating ok.
[2018-04-01] MEDS ORDERED: Magnesium Sulfate 2 gm/50 ml 2 GM/50 ML BAG IVPB ONE (07:32)
[2018-04-01] MEDS ORDERED: Albuterol-Ipratrop 3 mg / 0.5 (3 ml) UD IH PRN (07:32)
[2018-04-01] MEDS: Albuterol-Ipratrop 3 mg / 0.5 (3 ml) UD IH SCH ×3 (07:55→20:15)
[2018-04-01 08:50] LABS: VENOUS BLOOD GAS BASE EXCESS 2.2 mmol/L (0.0-2.0); VENOUS BLOOD GAS PO2 77 mm/Hg (30-55); VENOUS BLOOD PH 7.39 (7.32-7.43)
[2018-04-01] MEDS ORDERED: Meropenem IV 1 gm in NS 1 GM/50 ML BAG IVPB SCH (09:00)
[2018-04-01] MEDS: Potassium Chloride 10 mEq ER Tab PO SCH ×3 (09:46→18:40)
[2018-04-01] MEDS: Linezolid 600 mg in D5W 300 ml 600 MG/300 ML BAG IVPB SCH ×2 (09:46→22:21)
[2018-04-01] MEDS: Nystatin 100,000 Units/ml Oral Susp 5 ml UD PO SCH ×3 (09:46→18:40)
[2018-04-01] MEDS ORDERED: Potassium Chloride 20 mEq ER Tab PO SCH (10:00)
[2018-04-01] MEDS ORDERED: Nystatin 100,000 Units/ml Oral Susp 5 ml UD PO SCH (10:00)
[2018-04-01] MEDS ORDERED: AMPHETAMINE PO SCH (10:00)
[2018-04-01] MEDS ORDERED: DEXTROAMPHETAMINE PO SCH (10:00)
--- NOTE | 2018-04-01 11:23 | CT ---
Date of service: 04/01/2018 PROCEDURE: CT Chest with contrast HISTORY: cough, h/o cancer, r/o lung abscess COMPARISON: 02/18/2018 CT TECHNIQUE: Contiguous axial images were obtained through the chest with intravenous contrast enhancement. Sagittal and coronal reconstructions were performed. IV contrast: 100 cc of Visipaque 320 Radiation dose: Total exam DLP = 154.65 mGy-cm. This CT exam was performed using one or more of the following dose reduction techniques: Automated exposure control, adjustment of the mA and/or kV according to patient size, and/or use of iterative reconstruction technique. FINDINGS: LUNGS: There is chronic dense consolidation in the left lower lobe. There is now abscess formation with fluid and air collections within the consolidated area. MEDIASTINUM: Unremarkable thoracic aorta. No aneurysm or dissection. Normal sized heart. Main pulmonary artery unremarkable. No vascular congestion. No lymphadenopathy. No atherosclerotic calcification or mural plaque present. PLEURA: No pleural fluid. No pneumothorax. BONES: No fracture. No destructive lesion. UPPER ABDOMEN: There enlargement of the adrenal glands especially on the left side where it measures 3.2 cm in diameter. The right side measures 14 mm. Findings are consistent with adrenal metastases. Findings are unchanged OTHER FINDINGS: None. IMPRESSION: There is chronic dense consolidation in the left lower lobe. There is now abscess formation with fluid and air collections within the consolidated area. Bilateral adrenal masses
--- NOTE | 2018-04-01 11:43 | CARD ---
APPROVED REPORT Date of service: 04/01/2018 EKG Measurement Heart [id number] <Conclusion> Sinus tachycardia Otherwise normal ECG
[2018-04-01] MEDS: DEXTROAMPHETAMINE PO SCH ×2 (13:27→18:37)
[2018-04-01] MEDS: AMPHETAMINE PO SCH ×2 (13:27→18:37)
--- NOTE | 2018-04-01 20:38 | CON ---
DATE: 04/01/2018 The patient is seen earlier today in 365, bed 2. CHIEF COMPLAINT: Cough for several days, worsening of her cough. 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 The patient has a history of neutropenia. The patient with a history of sensitive Staph aureus bacteremia secondary to a Port-A-Cath, long-time smoker, renal disease, emphysema, and anemia, who is admitted with worsening of a cough and discovered to have, on CAT scan, possible abscess and the lung abscess. Infectious disease consultation requested. REVIEW OF SYSTEMS: Review of systems reveals the patient states the cough has gotten worse and she did have low-grade fevers and no chills. No chest pain or headaches or blurred vision. A 12-point review of systems is performed. There has been no abdominal pain, diarrhea, or constipation. No bright red blood per rectum. No melena. PAST MEDICAL HISTORY: Significant for stage IV cancer with adrenal mets, COPD, left pleural effusion, ADHD, neutropenia, sensitive Staph aureus bacteremia, long-time smoker, renal disease, the patient's creatinine in the past had gone up to 4. PAST SURGICAL HISTORY: Significant for Port-A-Cath infection with MSSA bacteremia requiring Port-A-Cath replacement. She has a new Port-A-Cath now. Also, the patient had breast reduction. ALLERGIES: THE PATIENT HAS NO KNOWN ALLERGIES. MEDICATIONS AT HOME: Reviewed and include inhalers, nystatin, and metoprolol. PHYSICAL EXAMINATION: On exam, the patient is in bed, appearing weak and chronically ill with a temperature of 97, a heart rate of 109, blood pressure is 140/90, respiratory rate of 20, and saturation is down to 94% on room air, with a BMI of 23. Examination of HEENT is unremarkable. Neck is supple. Lungs have decreased breath sounds. Heart exam, normal S1, S2. Abdomen examination is soft, nontender, no rebound or guarding. Examination of Port-A-Cath site is clean, no evidence of infection. LABORATORY EXAMINATION: Reveals a white count of 20,000 with 87% polys. Coagulation is noted. Chemistries reveals a BUN of 40, creatinine of 1.2, alk phos is 147, glucose is 192, and the BNP is 2810. Urinalysis is noted with a trace leukocyte esterase. CAT scan of the chest, report is not available at this time officially. ASSESSMENT AND PLAN: A 62-year-old female with stage IV lung cancer with adrenal metastases, end-stage chronic obstructive lung disease, long-time smoker, history of neutropenia, history of sensitive Staph aureus bacteremia secondary to a Port-A-Cath infection, and a history of renal insufficiency, admitted with cough, shortness of breath, tachycardia, leukocytosis. 1. Sepsis with healthcare-associated pneumonia with possible lung abscess. We will start the patient on Zyvox and meropenem, order an HIV because of her age and hemoglobin A1c, blood cultures, urine cultures, sputum cultures, sputum MRSA screen, urine for Legionella antigen, and procalcitonin and recommend to discontinue vancomycin and Maxipime, and pulmonary consultation, and we will make further recommendations upon availability of initial results. We will follow with you. Eliezer Stuart MD
[2018-04-01] MEDS: Meropenem IV 1 gm in NS 1 GM/50 ML BAG IVPB SCH (22:20)
[2018-04-02] MEDS: Albuterol-Ipratrop 3 mg / 0.5 (3 ml) UD IH SCH ×4 (01:14→19:59)
[2018-04-02 07:16] LABS: HEMOGLOBIN 9.5 g/dL (12.0-16.0); MEAN CELL VOLUME 88.4 fl (80.0-105.0); MEAN CORPUSCULAR HEMOGLOBIN 27.6 pg (25.0-35.0); MEAN CORPUSCULAR HGB CONC 31.3 g/dl (31.0-37.0); MEAN PLATELET VOLUME 8.3 fl (7.0-11.0); RBC 3.44 10^6/uL (3.5-6.1); WHITE BLOOD COUNT 22.3 10^3/ul (4.5-11.0)
[2018-04-02 08:01] LABS: ALB/GLOB RATIO 0.9 (1.1-1.8); ALT/SGPT 24 U/L (7-56); AST/SGOT 41 U/L (14-36); BLOOD UREA NITROGEN 27 mg/dL (7-21); GFR NON-AFRICAN AMERICAN 56
[2018-04-02] MEDS ORDERED: Magnesium Sulfate 2 gm/50 ml 2 GM/50 ML BAG IVPB ONE (08:25)
[2018-04-02] MEDS ORDERED: Potassium Chloride 20 mEq ER Tab PO STA (08:26)
--- NOTE | 2018-04-02 08:58 | CON ---
DATE: 04/02/2018 PULMONARY CONSULTATION REASON FOR PULMONARY CONSULTATION: Rule out lung abscess. REFERRING PHYSICIAN: Alejandro Miranda MD. HISTORY OF PRESENT ILLNESS: The patient is a chronically ill 62-year-old female, with past medical history significant for advanced chronic obstructive pulmonary disease, on home oxygen; advanced/stage IV lung cancer; anemia; significant noncompliance with my office followup; significant noncompliance with her pulmonary medications at home (on no medications consistently), who presents to [facility] with a 2-week history of increasing shortness of breath at rest, dyspnea on exertion, cough, and sputum production. There is no history of chest pain. The patient did state to a few spots of blood in her sputum 2 weeks ago, now the sputum is yellow colored. There is no history of chest discomfort-- made worse with deep respirations. The patient did state to fevers at home. There have [place] no fevers measured in the hospital. No history of chills or infectious exposure. No history of night sweats. There has been significant weight loss with decreased appetite over the past 6 months. No history of leg or calf pains. No history of syncope or diaphoresis. No history of recent travel or trauma. REVIEW OF SYSTEMS: No history of nausea, vomiting, or diarrhea. No acute urinary symptoms. No new neurologic or musculoskeletal complaints. Rest of the review of systems is negative. ALLERGIES: NO KNOWN ALLERGIES. SOCIAL HISTORY: Positive for extensive tobacco usage. No alcohol. FAMILY HISTORY: No inheritable diseases. HOME MEDICATIONS: Include potassium, nystatin, metoprolol, Adderall, and occasional nebulizer treatments. PHYSICAL EXAMINATION: GENERAL: The patient appears comfortable at rest. She is not short of breath. VITAL SIGNS: Last temperature recorded is 97.4, pulse this morning is approximately 100, respiratory rate 20, blood pressure 116/80. Oxygen saturation on nasal cannula is 95%-97%. HEENT: Normocephalic, atraumatic. No JVD. CARDIOVASCULAR: Positive S1, S2. No S3 gallop. LUNGS: Decreased breath sounds at the bases with crackles. Mild bilateral rhonchi. No wheezing. EXTREMITIES: Positive for mild edema. No cyanosis, no clubbing. Calves are nontender to palpation. GASTROINTESTINAL: Abdomen is soft, nontender, and nondistended. Bowel sounds are positive. SKIN: No acute rash. NEUROLOGIC: Limited at the present time. PERTINENT LABORATORY DATA: CAT scan of the chest was done yesterday and reviewed. There is a large, partially cavitated left lower lobe lung mass. This lung mass had increased on the previous CAT scan of 02/17/2018. There is also a large left adrenal mass consistent with metastasis. There is also now questionable abscess formation versus further cavitation of the lung mass noted at the left base. CBC: White count 20.1K, hemoglobin 10.7, hematocrit 33.2, platelets of 424,000. Complete metabolic profile: Sodium 131, potassium 3.1, chloride 91, BUN 40, glucose 192, magnesium 1.6, alkaline phosphatase 147, LDH 331, B-type natriuretic peptide 2810. Rest of the metabolic profile is within normal limits. IMPRESSION: 1. Sepsis syndrome. 2. Rule out lung abscess. 3. Extensive/stage IV lung cancer. 5. Advanced chronic obstructive pulmonary disease, on home oxygen. 6. Anemia. PLAN: I did discuss the case with the night nurse at length. I have also reviewed the chart at length, and discussed the case with the patient at length. The patient presents to [facility] with a 2-week history of worsening pulmonary symptoms. She also stated to fevers at home. I did review the CAT scan of the chest. Findings are noted above. There is a questionable new lung abscess versus further cavitation of the malignancy noted at the left base. Dr. Dez Laird (Interventional Radiology) has been called on the case for possible drainage. Again, I am not entirely sure that this is a true lung abscess. The patient does have a history of advanced left lower lobe cancer with cavitation. I have also reviewed the laboratory data. A significant leukocytosis is present. The patient has been pancultured and placed on antibiotic therapy. I did discuss the case with Dr. Stuart (Infectious Disease) earlier this morning. On physical exam, the patient is in mild bronchospasm. In addition, there is a [id number] increase in the alveolar-arterial gradient. I will continue with the current nebulizer treatments for now. I will also place the patient on low-dose intravenous steroids this morning. The patient does feel better this morning, and is clinically improved. However, her future status/prognosis remains very poor. As noted above, the left lower lobe lung mass had increased on the previous CAT scan. In addition, as above, the patient has a significant history of noncompliance with office followup and her pulmonary medications. I did discuss these issues with her at length again this morning. I will discuss the above with Dr. Miranda this morning. Thank you very much for this pulmonary consultation. Amadou Mueller MD MTDGina
[2018-04-02] MEDS ORDERED: MethylPREDNISolone 40 mg Vial IVP SCH ×2 (10:00→22:00)
[2018-04-02] MEDS: Potassium Chloride 10 mEq ER Tab PO SCH ×3 (10:05→17:16)
[2018-04-02] MEDS: Meropenem IV 1 gm in NS 1 GM/50 ML BAG IVPB SCH ×2 (10:06→22:01)
[2018-04-02] MEDS: Nystatin 100,000 Units/ml Oral Susp 5 ml UD PO SCH ×3 (10:07→17:16)
[2018-04-02] MEDS: Linezolid 600 mg in D5W 300 ml 600 MG/300 ML BAG IVPB SCH ×2 (10:07→22:02)
--- NOTE | 2018-04-02 12:26 | CP.PCM.PN ---
<Aide Metcalf - Last Filed: 04/02/18 12:23> Subjective - Date & Time of Evaluation Date of Evaluation: 04/02/18 Time of Evaluation: 07:00 - Subjective Subjective: Medicine Progress Note for Myriam Barakat PGY3 Patient seen and examined at bedside. There were no acute overnight events as per nursing staff. Patient reports her cough has improved. She denies chest pain, shortness of breath, nausea/vomiting/diarrhea, fever/chills, numbness/tingling, dysuria or hematuria. Objective - Vital Signs/Intake and Output Vital Signs (last 24 hours): Temp Pulse Resp BP Pulse Ox 97.3 F L 111 H 22 107/70 94 L 04/02/18 08:19 04/02/18 08:19 04/02/18 08:19 04/02/18 08:19 04/02/18 08:19 Intake and Output: 04/02/18 04/02/18 06:59 18:59 Intake Total 2690 Balance 2690 - Medications Medications: Current Medications Albuterol/Ipratropium (Duoneb 3 Mg/0.5 Mg (3 Ml) Ud) 3 ml IH Q2H PRN PRN Reason: Shortness of Breath Albuterol/Ipratropium (Duoneb 3 Mg/0.5 Mg (3 Ml) Ud) 3 ml IH [id number] [facility] Last Admin: 04/02/18 08:09 Dose: 3 ml Linezolid (Zyvox 600mg/300ml D5w) 600 mg in 300 mls @ 200 mls/hr IVPB Q12 [facility]; Protocol Stop: 04/06/18 10:01 Last Admin: 04/02/18 10:07 Dose: 200 mls/hr Meropenem (Merrem Iv 1 Gm Premix) 1 gm in 50 mls @ 12.5 mls/hr IVPB Q12 [facility] MARINA; Protocol Stop: 04/08/18 09:01 Last Admin: 04/02/18 10:06 Dose: 12.5 mls/hr Methylprednisolone (Solu-Medrol) 30 mg IVP Q12 [facility] MARINA Non-Formulary Medication (Dextroamphetamine/Amphetamine [Adderall 20 Mg Tablet]) 20 mg PO TID [facility] Last Admin: 04/01/18 18:37 Dose: Not Given Nystatin (Nystatin Oral Susp) 5 ml PO TID [facility] Last Admin: 04/02/18 10:07 Dose: 5 ml Oxycodone HCl (Oxycodone Immediate Release Tab) 10 mg PO Q4 PRN PRN Reason: Pain, moderate (4-7) Potassium Chloride (Klor-Con 10) 10 meq PO TID [facility] Last Admin: 04/02/18 10:05 Dose: 10 meq - Labs Labs: 04/02/18 06:56 04/02/18 06:56 PT 14.8 SECONDS (9.4-12.5) H 04/01/18 00:35 INR 1.29 04/01/18 00:35 APTT 29.7 Seconds (25.1-36.5) 04/01/18 00:35 - Constitutional Appears: No Acute Distress, Chronically Ill - Head Exam Head Exam: ATRAUMATIC, NORMAL INSPECTION, NORMOCEPHALIC - Eye Exam Eye Exam: Normal appearance, PERRL Pupil Exam: NORMAL ACCOMODATION, PERRL - ENT Exam ENT Exam: Mucous Membranes Moist - Neck Exam Neck Exam: Full ROM, Normal Inspection. absent: Lymphadenopathy - Respiratory Exam Respiratory Exam: Rales, Rhonchi, NORMAL BREATHING PATTERN. absent: Wheezes, Respiratory Distress - Cardiovascular Exam Cardiovascular Exam: REGULAR RHYTHM, RRR, +S1, +S2. absent: Gallop, Rubs, Murmur - GI/Abdominal Exam GI & Abdominal Exam: Soft, Normal Bowel Sounds. absent: Rigid, Tenderness, Mass, Organomegaly, Rebound - Extremities Exam Extremities Exam: Full ROM, Normal Capillary Refill, Normal Inspection. absent: Calf Tenderness, Pedal Edema, Tenderness - Neurological Exam Neurological Exam: Alert, Awake, CN II-XII Intact, Normal Gait, Oriented x3 - Psychiatric Exam Psychiatric exam: Depressed, Normal Affect - Skin Skin Exam: Dry, Intact, Normal Color, Warm Assessment and Plan - Assessment and Plan (Free Text) Assessment: 1. Sepsis - secondary to LLL pneumonia v. lung abscess v. cavitary lesion from lung ca seen on chest CT 2. Hyponatremia 3. Hypokalemia 4. Non-small cell lung ca stage IV 5. COPD 6. ADHD Plan: Labs and imaging reviewed. Electrolytes were replaced. Pulm consulted and recs appreciated. IR plans for aspiration on lung lesion tomorrow around noon. Continue Merrem and Zyvox as per ID. Septic work up pending. Patient placed on IV steroids as per oncology. Continue Duonebs. Continue Adderall for ADHD. Pain is controlled and patient is tolerating diet. Case seen, discussed and reviewed with Dr. Ruben Metcalf PGY3 <Alejandro Miranda - Last Filed: 04/02/18 16:42> Objective - Vital Signs/Intake and Output Vital Signs (last 24 hours): Temp Pulse Resp BP Pulse Ox 98.6 F 98 H 20 110/70 95 04/02/18 16:21 04/02/18 16:21 04/02/18 16:21 04/02/18 16:21 04/02/18 16:21 Intake and Output: 04/02/18 04/02/18 06:59 18:59 Intake Total 2690 Balance 2690 - Medications Medications: Current Medications Albuterol/Ipratropium (Duoneb 3 Mg/0.5 Mg (3 Ml) Ud) 3 ml IH Q2H PRN PRN Reason: Shortness of Breath Albuterol/Ipratropium (Duoneb 3 Mg/0.5 Mg (3 Ml) Ud) 3 ml IH [id number] [facility] Last Admin: 04/02/18 13:43 Dose: 3 ml Linezolid (Zyvox 600mg/300ml D5w) 600 mg in 300 mls @ 200 mls/hr IVPB Q12 [facility]; Protocol Stop: 04/06/18 10:01 Last Admin: 04/02/18 10:07 Dose: 200 mls/hr Meropenem (Merrem Iv 1 Gm Premix) 1 gm in 50 mls @ 12.5 mls/hr IVPB Q12 [facility]; Protocol Stop: 04/08/18 09:01 Last Admin: 04/02/18 10:06 Dose: 12.5 mls/hr Methylprednisolone (Solu-Medrol) 30 mg IVP Q12 [facility] Non-Formulary Medication (Dextroamphetamine/Amphetamine [Adderall 20 Mg Tablet]) 20 mg PO TID [facility] Last Admin: 04/02/18 14:58 Dose: Not Given Nystatin (Nystatin Oral Susp) 5 ml PO TID [facility] Last Admin: 04/02/18 14:59 Dose: 5 ml Oxycodone HCl (Oxycodone Immediate Release Tab) 10 mg PO Q4 PRN PRN Reason: Pain, moderate (4-7) Last Admin: 04/02/18 13:10 Dose: 10 mg Potassium Chloride (Klor-Con 10) 10 meq PO TID [facility] Last Admin: 04/02/18 14:58 Dose: 10 meq - Labs Labs: 04/02/18 06:56 04/02/18 06:56 PT 14.8 SECONDS (9.4-12.5) H 04/01/18 00:35 INR 1.29 04/01/18 00:35 APTT 29.7 Seconds (25.1-36.5) 04/01/18 00:35 Assessment and Plan - Assessment and Plan (Free Text) Plan: Pt seen and examined. I have reviewed the note of the manager medical affairs and agree with it. I have discussed the assessment and plan with the resident. I have reviewed the patient's labs and medications. Pt with sepsis due to lung infection - HCAP. Pt on Zyvox and Merrem. She will be continued on steroids. She will continue with Duonebs. I left a message with Dr Dez Laird (IR).Pain is controlled. She would like to go home in am as she has a son of 16 years old that she is taking care of.
[2018-04-02] MEDS: oxyCODONE 10 mg Immediate Release Tab PO PRN ×2 (13:10→20:15)
[2018-04-02] MEDS: DEXTROAMPHETAMINE PO SCH ×2 (14:58→17:16)
[2018-04-02] MEDS: AMPHETAMINE PO SCH ×2 (14:58→17:16)
--- NOTE | 2018-04-02 16:03 | PN ---
DATE: 04/02/2018 SUBJECTIVE: The patient is in bed, in no acute distress, nontoxic. The patient's family members are present. PHYSICAL EXAMINATION: VITAL SIGNS: On exam, temperature is 97, blood pressure is 107/70, respiratory rate of 22, heart rate of 111. HEENT: Examination of HEENT is unremarkable. LABORATORY DATA: Laboratory examination reveals the white count is 22,000. Coagulation is noted. Chemistries reveals BUN of 27, creatinine of 1. Urinalysis is noted. Serology is HIV is negative. Urine Legionella antigen is negative. Microbiology: Blood cultures are negative. Urine cultures are negative. The sputum cultures are pending. The patient's MRSA screen is also pending. The patient is on Zyvox and the patient is also on Solu-Medrol. The patient is on meropenem. 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 The patient's lung cancer is a cavitary lung cancer. The patient is admitted with sepsis with healthcare-associated pneumonia, on Zyvox and meropenem. We will follow with you. Eliezer Stuart MD
[2018-04-02 16:21] VITALS: TEMP 98.6
[2018-04-03] MEDS: Albuterol-Ipratrop 3 mg / 0.5 (3 ml) UD IH SCH ×3 (01:09→13:46)
[2018-04-03 07:10] LABS: HEMOGLOBIN 10.9 g/dL (12.0-16.0); MEAN CELL VOLUME 89.6 fl (80.0-105.0); MEAN CORPUSCULAR HEMOGLOBIN 28.2 pg (25.0-35.0); MEAN CORPUSCULAR HGB CONC 31.5 g/dl (31.0-37.0); MEAN PLATELET VOLUME 8.3 fl (7.0-11.0); RBC 3.86 10^6/uL (3.5-6.1); RED CELL DISTRIBUTION WIDTH 22.2 % (11.5-14.5); WHITE BLOOD COUNT 21.1 10^3/ul (4.5-11.0)
[2018-04-03 07:26] LABS: ALB/GLOB RATIO 0.9 (1.1-1.8); ALBUMIN 3.1 g/dL (3.0-4.8); ALT/SGPT 20 U/L (7-56); AST/SGOT 34 U/L (14-36); BLOOD UREA NITROGEN 19 mg/dL (7-21); CALCIUM 9.3 mg/dL (8.4-10.5); GFR NON-AFRICAN AMERICAN > 60
--- NOTE | 2018-04-03 07:33 | PN ---
DATE: 04/03/2018 PULMONARY NOTE SUBJECTIVE: The patient appears more comfortable this morning. She is not short of breath at rest. PHYSICAL EXAMINATION: VITAL SIGNS: (Last noted in the computer): Temperature is 98.6, pulse 98, respirations 18-20, blood pressure 110/70. Oxygen saturation on nasal cannula is 95%. HEENT: Normocephalic, atraumatic. No JVD. CARDIOVASCULAR: Positive S1, S2. No S3 gallop. LUNGS: Decreased breath sounds at the bases with crackles. Less rhonchi. No wheezing. EXTREMITIES: Positive for mild edema. No cyanosis or clubbing. Calves are nontender to palpation. GASTROINTESTINAL: Abdomen is soft, nontender, and nondistended. Bowel sounds are positive. SKIN: No acute rash. NEUROLOGIC: Limited at the present time. IMPRESSION: 1. Sepsis syndrome. 2. Rule out lung abscess. 3. Extensive/stage IV lung cancer. 4. Advanced chronic obstructive pulmonary disease. 5. Anemia. PLAN: The patient appears comfortable this morning. She is not short of breath at rest. She is coughing less. She does state to feeling much better overall. On physical exam, there is certainly less bronchospasm noted. In addition, the alveolar-arterial gradient is also less. I will continue with the current nebulizer treatments and decrease the intravenous steroids this morning. The patient remains on antibiotic therapy - as per Infectious Disease. Input by Dr. Stuart is noted. The temperatures appeared to be resolving. Repeat a.m. labs are pending. Clinical status of the patient appears certainly improved - compared to her initial presentation. However, again, unfortunately, the future status/prognosis for this patient remains poor. She is for interventional radiology evaluation with Dr. Dez Laird later today. Again, the findings noted on the newest CAT scan may be a reflection of further necrosis of the tumor (and cavitation), rather than a true lung abscess. I will discuss the above with the attending physician. Amadou Mueller MD [facility]
--- NOTE | 2018-04-03 08:57 | CP.PCM.DIS ---
<Aide Metcalf - Last Filed: 04/03/18 08:53> Provider - Provider Date of Admission: 03/31/18 23:11 Attending physician: Alejandro Miranda MD Consults: Onc: Israel ID: [email or web address] Pulm: Ervin Time Spent in preparation of Discharge (in minutes): 35 Hospital Course - Lab Results Lab Results: Micro Results 04/01/18 00:35 Blood Blood Culture - Preliminary NO GROWTH AFTER 48 HOURS 04/01/18 00:20 Blood Blood Culture - Preliminary NO GROWTH AFTER 48 HOURS 04/01/18 13:20 Nose MRSA Culture (Admit) - Final MRSA NOT DETECTED 04/01/18 13:30 Other: Please Indicate Mycobacterial Culture - Preliminary 04/01/18 00:35 Urine,Clean Catch Urine Culture - Final No Growth (<1,000 CFU/ML) 04/01/18 13:30 Sputum Gram Stain - Final Most Recent Lab Values WBC 21.1 10^3/ul (4.5-11.0) H 04/03/18 06:50 RBC 3.86 10^6/uL (3.5-6.1) 04/03/18 06:50 Hgb 10.9 g/dL (12.0-16.0) L 04/03/18 06:50 Hct 34.6 % (36.0-48.0) L 04/03/18 06:50 MCV 89.6 fl (80.0-105.0) 04/03/18 06:50 MCH 28.2 pg (25.0-35.0) 04/03/18 06:50 MCHC 31.5 g/dl (31.0-37.0) 04/03/18 06:50 RDW 22.2 % (11.5-14.5) H 04/03/18 06:50 Plt Count 377 10^3/uL (120.0-450.0) 04/03/18 06:50 MPV 8.3 fl (7.0-11.0) 04/03/18 06:50 Gran % 87.9 % (50.0-68.0) H 04/01/18 00:35 Lymph % (Auto) 6.7 % (22.0-35.0) L 04/01/18 00:35 Whitfield % (Auto) 5.4 % (1.0-6.0) 04/01/18 00:35 Eos % (Auto) 0.0 % (1.5-5.0) L 04/01/18 00:35 Baso % (Auto) 0.0 % (0.0-3.0) 04/01/18 00:35 Gran # 17.70 (1.4-6.5) H 04/01/18 00:35 Lymph # (Auto) 1.3 (1.2-3.4) 04/01/18 00:35 Whitfield # (Auto) 1.1 (0.1-0.6) H 04/01/18 00:35 Eos # (Auto) 0.0 (0.0-0.7) 04/01/18 00:35 Baso # (Auto) 0.01 K/mm3 (0.0-2.0) 04/01/18 00:35 PT 14.8 SECONDS (9.4-12.5) H 04/01/18 00:35 INR 1.29 04/01/18 00:35 APTT 29.7 Seconds (25.1-36.5) 04/01/18 00:35 pO2 77 mm/Hg (30-55) H 04/01/18 05:00 VBG pH 7.39 (7.32-7.43) 04/01/18 05:00 VBG pCO2 46.0 (40-60) 04/01/18 05:00 VBG HCO3 27.8 mmol/l (21-28) 04/01/18 05:00 VBG Total CO2 29.2 mmol.L (22-28) H 04/01/18 05:00 VBG O2 Sat (Calc) 96.9 % (40-65) H 04/01/18 05:00 VBG Base Excess 2.2 mmol/L (0.0-2.0) H 04/01/18 05:00 VBG Potassium 3.4 mmol/L (3.6-5.2) L 04/01/18 05:00 Sodium 130.0 mmol/L (132-148) L 04/01/18 05:00 Chloride 96.0 mmol/L (98-107) L 04/01/18 05:00 Glucose 188 mg/dl (65-105) H 04/01/18 05:00 Lactate 1.2 mmol/L (0.7-2.1) 04/01/18 05:00 FiO2 21.0 % 04/01/18 05:00 Sodium 129 mmol/L (132-148) L 04/03/18 06:50 Potassium 3.9 mmol/L (3.6-5.0) 04/03/18 06:50 Chloride 91 mmol/L (98-107) L 04/03/18 06:50 Carbon Dioxide 33 mmol/L (21-33) 04/03/18 06:50 Anion Gap 9 (10-20) L 04/03/18 06:50 BUN 19 mg/dL (7-21) 04/03/18 06:50 Creatinine 0.9 mg/dl (0.7-1.2) 04/03/18 06:50 Est GFR ( Amer) > 60 04/03/18 06:50 Est GFR (Non-Af Amer) > 60 04/03/18 06:50 Random Glucose 91 mg/dL (70-110) 04/03/18 06:50 Hemoglobin A1c 6.1 % (4.2-6.5) 04/01/18 00:35 Calcium 9.3 mg/dL (8.4-10.5) 04/03/18 06:50 Phosphorus 3.3 mg/dL (2.5-4.5) 04/02/18 06:56 Magnesium 1.8 mg/dL (1.7-2.2) 04/03/18 06:50 Total Bilirubin 0.9 mg/dL (0.2-1.3) 04/03/18 06:50 AST 34 U/L (14-36) 04/03/18 06:50 ALT 20 U/L (7-56) 04/03/18 06:50 Alkaline Phosphatase 96 U/L (38-126) 04/03/18 06:50 Lactate Dehydrogenase 331 U/L (333-699) L 04/01/18 00:35 Total Creatine Kinase < 20 U/L (35-230) L 04/01/18 00:35 Troponin I < 0.01 ng/mL D 04/01/18 00:35 NT-Pro-B Natriuret Pep 2810 pg/mL (0-450) H 04/01/18 00:35 Total Protein 6.4 g/dL (5.8-8.3) 04/03/18 06:50 Albumin 3.1 g/dL (3.0-4.8) 04/03/18 06:50 Globulin 3.3 gm/dL 04/03/18 06:50 Albumin/Globulin Ratio 0.9 (1.1-1.8) L 04/03/18 06:50 Procalcitonin 0.30 NG/ML (0.19-0.49) 04/01/18 08:30 Venous Blood Potassium 3.4 mmol/L (3.6-5.2) L 04/01/18 05:00 Urine Color Yellow (YELLOW) 04/01/18 00:35 Urine Appearance Sl cloudy (CLEAR) 04/01/18 00:35 Urine pH 6.0 (4.7-8.0) 04/01/18 00:35 Ur Specific Auberry 1.020 (1.005-1.035) 04/01/18 00:35 Urine Protein 100 mg/dL (<30 mg/dL) H 04/01/18 00:35 Urine Glucose (UA) 100 mg/dL (NEGATIVE) H 04/01/18 00:35 Urine Ketones Negative mg/dL (NEGATIVE) 04/01/18 00:35 Urine Blood Moderate (NEGATIVE) H 04/01/18 00:35 Urine Nitrate Negative (NEGATIVE) 04/01/18 00:35 Urine Bilirubin Negative (NEGATIVE) 04/01/18 00:35 Urine Urobilinogen 0.2 E.U./dL (<1 E.U./dL) 04/01/18 00:35 Ur Leukocyte Esterase Trace Fabi/uL (NEGATIVE) H 04/01/18 00:35 Urine RBC 1 - 3 /hpf (0-2) 04/01/18 00:35 Urine WBC 1 - 3 /hpf (0-6) 04/01/18 00:35 Ur Epithelial Cells 3 - 4 /hpf (0-5) 04/01/18 00:35 Urine Bacteria Few (NEG) 04/01/18 00:35 HIV 1&2 Ag/Ab, 4th Gen Nonreactive (Nonreactive) 04/01/18 08:54 Ur L.pneumophila Ag Negative (NEGATIVE) 04/01/18 13:30 - Hospital Course Hospital Course: This is a 62yo female with past medical history of stage IV non-small cell lung ca (on chemo), COPD, L persistent pleural effusion, post-obstructive pneumonitis and ADHD who was admitted for sepsis secondary to LLL pneumonia versus abscess. Patient was started on empiric antibiotics. ID was consulted. Cultures were negative thus far. Patient was evaluated by pulm and oncology. Her home medications were continued. Patient had IR aspiration of possible abscess to rule out if the lesion on CT is abscess versus progression of lung cancer. She will be d/c home with PO Augmentin. Patient will continue her home medications. She will follow up with Dr. Miranda next week for repeat blood work, culture follow up and possible repeat CT. She will continue to follow up with Dr. Wood (oncology) as well. Patient verbalized and agreed with d/c plan. - Date & Time of H&P Date of H&P: 04/01/18 Time of H&P: 10:00 Discharge Exam - Head Exam Head Exam: ATRAUMATIC, NORMAL INSPECTION, NORMOCEPHALIC - Eye Exam Eye Exam: EOMI, Normal appearance, PERRL Pupil Exam: NORMAL ACCOMODATION - ENT Exam ENT Exam: Mucous Membranes Moist - Neck Exam Neck exam: Full Rom, Normal Inspection - Respiratory Exam Respiratory Exam: Rales, Rhonchi (LL bilaterally ), NORMAL BREATHING PATTERN. absent: Accessory Muscle Use, Respiratory Distress - Cardiovascular Exam Cardiovascular Exam: REGULAR RHYTHM, RRR, +S1, +S2. absent: Gallop, Rubs, Systolic Murmur - GI/Abdominal Exam GI & Abdominal Exam: Normal Bowel Sounds, Soft, Unremarkable. absent: Guarding, Mass, Rebound, Rigid, Tenderness - Extremities Exam Extremities exam: normal capillary refill, normal inspection, pedal pulses present - Neurological Exam Neurological exam: Alert, CN II-XII Intact, Oriented x3 - Psychiatric Exam Psychiatric exam: Normal Affect, Normal Mood - Skin Skin Exam: Dry, Intact, Normal Color, Warm Discharge Plan - Discharge Medications Prescriptions: Amoxicillin/Clavulanate [Augmentin 875 MG-125 MG] 1 tab PO BID #28 tab - Follow Up Plan Condition: STABLE Disposition: HOME/ ROUTINE Instructions: Cough in Adults, Exacerbation of COPD (DC), Lung Abscess (DC) Additional Instructions: 1. finish course of antibiotics 2. Continue home medications 3. Follow up with Dr. Miranda next week with for repeat blood work and tests. Referrals: Alejandro Miranda MD [Family Provider] - <Alejandro Miranda - Last Filed: 04/03/18 21:16> Provider - Provider Date of Admission: 03/31/18 23:11 Attending physician: Alejandro Miranda MD Hospital Course - Lab Results Lab Results: Micro Results 04/01/18 13:30 Sputum Fungal Culture - Preliminary 04/03/18 11:35 Other: Please Indicate Fungal Culture - Preliminary 04/03/18 11:35 Other: Please Indicate Gram Stain - Final 04/01/18 13:30 Sputum Gram Stain - Final 04/01/18 13:30 Sputum Sputum Culture - Final NORMAL ORAL ALONDRA 04/01/18 00:35 Blood Blood Culture - Preliminary NO GROWTH AFTER 48 HOURS 04/01/18 00:20 Blood Blood Culture - Preliminary NO GROWTH AFTER 48 HOURS 04/01/18 13:20 Nose MRSA Culture (Admit) - Final MRSA NOT DETECTED 04/01/18 13:30 Other: Please Indicate Mycobacterial Culture - Preliminary 04/01/18 00:35 Urine,Clean Catch Urine Culture - Final No Growth (<1,000 CFU/ML) Most Recent Lab Values WBC 21.1 10^3/ul (4.5-11.0) H 04/03/18 06:50 RBC 3.86 10^6/uL (3.5-6.1) 04/03/18 06:50 Hgb 10.9 g/dL (12.0-16.0) L 04/03/18 06:50 Hct 34.6 % (36.0-48.0) L 04/03/18 06:50 MCV 89.6 fl (80.0-105.0) 04/03/18 06:50 MCH 28.2 pg (25.0-35.0) 04/03/18 06:50 MCHC 31.5 g/dl (31.0-37.0) 04/03/18 06:50 RDW 22.2 % (11.5-14.5) H 04/03/18 06:50 Plt Count 377 10^3/uL (120.0-450.0) 04/03/18 06:50 MPV 8.3 fl (7.0-11.0) 04/03/18 06:50 Gran % 87.9 % (50.0-68.0) H 04/01/18 00:35 Lymph % (Auto) 6.7 % (22.0-35.0) L 04/01/18 00:35 Whitfield % (Auto) 5.4 % (1.0-6.0) 04/01/18 00:35 Eos % (Auto) 0.0 % (1.5-5.0) L 04/01/18 00:35 Baso % (Auto) 0.0 % (0.0-3.0) 04/01/18 00:35 Gran # 17.70 (1.4-6.5) H 04/01/18 00:35 Lymph # (Auto) 1.3 (1.2-3.4) 04/01/18 00:35 Whitfield # (Auto) 1.1 (0.1-0.6) H 04/01/18 00:35 Eos # (Auto) 0.0 (0.0-0.7) 04/01/18 00:35 Baso # (Auto) 0.01 K/mm3 (0.0-2.0) 04/01/18 00:35 PT 14.8 SECONDS (9.4-12.5) H 04/01/18 00:35 INR 1.29 04/01/18 00:35 APTT 29.7 Seconds (25.1-36.5) 04/01/18 00:35 pO2 77 mm/Hg (30-55) H 04/01/18 05:00 VBG pH 7.39 (7.32-7.43) 04/01/18 05:00 VBG pCO2 46.0 (40-60) 04/01/18 05:00 VBG HCO3 27.8 mmol/l (21-28) 04/01/18 05:00 VBG Total CO2 29.2 mmol.L (22-28) H 04/01/18 05:00 VBG O2 Sat (Calc) 96.9 % (40-65) H 04/01/18 05:00 VBG Base Excess 2.2 mmol/L (0.0-2.0) H 04/01/18 05:00 VBG Potassium 3.4 mmol/L (3.6-5.2) L 04/01/18 05:00 Sodium 130.0 mmol/L (132-148) L 04/01/18 05:00 Chloride 96.0 mmol/L (98-107) L 04/01/18 05:00 Glucose 188 mg/dl (65-105) H 04/01/18 05:00 Lactate 1.2 mmol/L (0.7-2.1) 04/01/18 05:00 FiO2 21.0 % 04/01/18 05:00 Sodium 129 mmol/L (132-148) L 04/03/18 06:50 Potassium 3.9 mmol/L (3.6-5.0) 04/03/18 06:50 Chloride 91 mmol/L (98-107) L 04/03/18 06:50 Carbon Dioxide 33 mmol/L (21-33) 04/03/18 06:50 Anion Gap 9 (10-20) L 04/03/18 06:50 BUN 19 mg/dL (7-21) 04/03/18 06:50 Creatinine 0.9 mg/dl (0.7-1.2) 04/03/18 06:50 Est GFR ( Amer) > 60 04/03/18 06:50 Est GFR (Non-Af Amer) > 60 04/03/18 06:50 Random Glucose 91 mg/dL (70-110) 04/03/18 06:50 Hemoglobin A1c 6.1 % (4.2-6.5) 04/01/18 00:35 Calcium 9.3 mg/dL (8.4-10.5) 04/03/18 06:50 Phosphorus 3.3 mg/dL (2.5-4.5) 04/02/18 06:56 Magnesium 1.8 mg/dL (1.7-2.2) 04/03/18 06:50 Total Bilirubin 0.9 mg/dL (0.2-1.3) 04/03/18 06:50 AST 34 U/L (14-36) 04/03/18 06:50 ALT 20 U/L (7-56) 04/03/18 06:50 Alkaline Phosphatase 96 U/L (38-126) 04/03/18 06:50 Lactate Dehydrogenase 331 U/L (333-699) L 04/01/18 00:35 Total Creatine Kinase < 20 U/L (35-230) L 04/01/18 00:35 Troponin I < 0.01 ng/mL D 04/01/18 00:35 NT-Pro-B Natriuret Pep 2810 pg/mL (0-450) H 04/01/18 00:35 Total Protein 6.4 g/dL (5.8-8.3) 04/03/18 06:50 Albumin 3.1 g/dL (3.0-4.8) 04/03/18 06:50 Globulin 3.3 gm/dL 04/03/18 06:50 Albumin/Globulin Ratio 0.9 (1.1-1.8) L 04/03/18 06:50 Procalcitonin 0.30 NG/ML (0.19-0.49) 04/01/18 08:30 Venous Blood Potassium 3.4 mmol/L (3.6-5.2) L 04/01/18 05:00 Urine Color Yellow (YELLOW) 04/01/18 00:35 Urine Appearance Sl cloudy (CLEAR) 04/01/18 00:35 Urine pH 6.0 (4.7-8.0) 04/01/18 00:35 Ur Specific Auberry 1.020 (1.005-1.035) 04/01/18 00:35 Urine Protein 100 mg/dL (<30 mg/dL) H 04/01/18 00:35 Urine Glucose (UA) 100 mg/dL (NEGATIVE) H 04/01/18 00:35 Urine Ketones Negative mg/dL (NEGATIVE) 04/01/18 00:35 Urine Blood Moderate (NEGATIVE) H 04/01/18 00:35 Urine Nitrate Negative (NEGATIVE) 04/01/18 00:35 Urine Bilirubin Negative (NEGATIVE) 04/01/18 00:35 Urine Urobilinogen 0.2 E.U./dL (<1 E.U./dL) 04/01/18 00:35 Ur Leukocyte Esterase Trace Fabi/uL (NEGATIVE) H 04/01/18 00:35 Urine RBC 1 - 3 /hpf (0-2) 04/01/18 00:35 Urine WBC 1 - 3 /hpf (0-6) 04/01/18 00:35 Ur Epithelial Cells 3 - 4 /hpf (0-5) 04/01/18 00:35 Urine Bacteria Few (NEG) 04/01/18 00:35 HIV 1&2 Ag/Ab, 4th Gen Nonreactive (Nonreactive) 04/01/18 08:54 Ur L.pneumophila Ag Negative (NEGATIVE) 04/01/18 13:30 - Hospital Course Hospital Course: Pt seen and examined. I have reviewed the note of the behavioral medical director and agree with it. I have discussed the assessment and plan with the resident. I have reviewed the patient's labs and medications. Pt with pneumonia- HCAP. She has an elevated WCC. She had a drainage done and will be discharged home. Pt does not wish to stay in the hospital as she has a 16 y/o son at home that she cares for. Will D/C with PO Augemntin. She will need CT of the chest as outpt. She will be followed up with Dr Wood.
[2018-04-03] MEDS: Meropenem IV 1 gm in NS 1 GM/50 ML BAG IVPB SCH (09:37)
[2018-04-03] MEDS: Potassium Chloride 10 mEq ER Tab PO SCH (09:37)
[2018-04-03] MEDS: Nystatin 100,000 Units/ml Oral Susp 5 ml UD PO SCH (09:38)
[2018-04-03] MEDS: Linezolid 600 mg in D5W 300 ml 600 MG/300 ML BAG IVPB SCH (09:38)
[2018-04-03] MEDS: oxyCODONE 10 mg Immediate Release Tab PO PRN (09:44)
[2018-04-03] MEDS ORDERED: MethylPREDNISolone 40 mg Vial IVP SCH (10:00)
[2018-04-03] MEDS ORDERED: Midazolam 2 MG/2 ML VIAL ONE (10:41)
[2018-04-03] MEDS ORDERED: Lidocaine 1% Inj (20ml) ONE (10:42)
[2018-04-03] MEDS ORDERED: Sodium Chloride 0.45% 1,000 ML IV SCH (11:30)
[2018-04-03 11:45] VITALS: O2SAT 96
--- NOTE | 2018-04-03 11:46 | CT ---
PROCEDURE: CT guided left lower lobe aspiration HISTORY: Stage IV lung CA. Enlarging necrotic mass at left lung base. Evaluate for abscess. PHYSICIAN(S): Dez Laird MD. TECHNIQUE: The relative risks and indications of the procedure were explained to the patient and consent obtained. The patient was placed prone on the CT scanner and preliminary images through the lung bases obtained. Conscious sedation and monitoring were provided throughout the procedure by a nurse. There is a 7.6 cm thick walled the chronic mass at the left lung base. A left posterior oblique approach was selected the area prepped and draped usual sterile fashion. Conscious sedation monitoring were provided throughout the procedure by a nurse. An 18 gauge needle was advanced into the liquified center and 5 cc of thick bloody fluid aspirated. The specimen was sent for microbiology. The patient tolerated the procedure well P IMPRESSION: 1. CT-guided aspiration left lower lobe necrotic mass. The specimen was sent for microbiology
[2018-04-03] MEDS ORDERED: Midazolam 2 MG/2 ML VIAL IVP ONE (12:01)
[2018-04-03 12:07] VITALS: BP 91/59; PULSE 111; RESP 17
--- NOTE | 2018-04-03 18:12 | PN ---
DATE: 04/03/2018 SUBJECTIVE: The patient is seen early this morning in room 365, bed 2. She states she is anxious to go home. No fevers and no chills. No nausea or vomiting. PHYSICAL EXAMINATION: VITAL SIGNS: Temperature is 98, blood pressure is 120/70, respiratory rate of 16. HEENT: Examination of HEENT is unremarkable. NECK: Supple. LUNGS: Have decreased breath sounds. HEART: Normal S1 and S2. ABDOMEN: Soft. LABORATORY DATA: Laboratory examination reveals a white count of 21,000. Chemistries are noted. Urinalysis is noted. Serology is negative for HIV and Legionella. Microbiology: Cultures are negative. The sputum culture has normal chris and AFB. No acid fast is seen. 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 The patient for Dr. Dez Laird, CAT scan guided drainage. The patient wants to be home. Case discussed with PMD. We will follow with you. Eliezer Stuart MD
== END 2018-04-03 15:19 | disposition home or self-care (01) | DRG 871 ==
LOC: ED 21:35 → ERH 23:11 → 3RNO 04-01 04:49
PROVIDERS: ADMIT Internal Medicine Nephrology; ATTEND Internal Medicine Nephrology
PROC: 0B9J3ZX Drainage of Left Lower Lung Lobe, Percutaneous Approach, Diagnostic (ICD-10-PCS; principal; 2018-04-03 10:30)
DX: A41.9 Sepsis, unspecified organism (principal); J85.1 Abscess of lung with pneumonia; C34.90 Malignant neoplasm of unspecified part of unspecified bronchus or lung; R04.2 Hemoptysis; J44.0 Chronic obstructive pulmonary disease with (acute) lower respiratory infection; E87.1 Hypo-osmolality and hyponatremia; J90 Pleural effusion, not elsewhere classified; C79.70 Secondary malignant neoplasm of unspecified adrenal gland; E87.6 Hypokalemia; F90.9 Attention-deficit hyperactivity disorder, unspecified type; D64.9 Anemia, unspecified; F17.200 Nicotine dependence, unspecified, uncomplicated; Y95 Nosocomial condition; Z99.81 Dependence on supplemental oxygen

== ENCOUNTER 2018-07-27 17:58 | Inpatient (IN) | payer OTHER ==
[2018-07-27] MEDS ORDERED: Vancomycin 1gm in NS 250ml 1 GM/250 ML BAG IVPB STA (18:41)
[2018-07-27] MEDS ORDERED: Piperacillin/Tazobact 3.375 gm 100 ML IVPB STA (18:41)
[2018-07-27] MEDS: Albuterol-Ipratrop 3 mg / 0.5 (3 ml) UD IH SCH ×3 (19:09→19:56)
[2018-07-27 19:10] LABS: VENOUS BLOOD GAS BASE EXCESS 6.6 mmol/L (0.0-2.0); VENOUS BLOOD GAS PO2 39 mm/Hg (30-55); VENOUS BLOOD PH 7.42 (7.32-7.43)
[2018-07-27 19:12] LABS: BASO # 0.02 K/mm3 (0.0-2.0); BASO % 0.2 % (0.0-3.0); EOS % 0.4 % (1.5-5.0); HEMOGLOBIN 11.3 g/dL (12.0-16.0); LYMPH # 1.6 (1.2-3.4); LYMPH % 14.5 % (22.0-35.0); MEAN CELL VOLUME 86.7 fl (80.0-105.0); MEAN CORPUSCULAR HEMOGLOBIN 27.9 pg (25.0-35.0); MEAN CORPUSCULAR HGB CONC 32.2 g/dl (31.0-37.0); MEAN PLATELET VOLUME 8.6 fl (7.0-11.0); MONO # 0.9 (0.1-0.6); MONO % 7.9 % (1.0-6.0); RBC 4.05 10^6/uL (3.5-6.1); RED CELL DISTRIBUTION WIDTH 18.7 % (11.5-14.5); WHITE BLOOD COUNT 11.1 10^3/uL (4.5-11.0)
--- NOTE | 2018-07-27 19:13 | ED PDOC ---
Arrival/HPI - General Chief Complaint: Shortness Of Breath Time Seen by Provider: 07/27/18 18:24 Historian: Patient - History of Present Illness Narrative History of Present Illness (Text): 07/27/18 18:24 Elsa Pablo is a 62 year old female, with a past medical history of COPD, and lung cancer (currently on chemo), presents to the emergency department with complaints of cough, shortness of breath, and hemoptysis for the last few days. Patient informs her PMD sent her to the emergency department for evaluation. Patient denies any fevers, chills, headache, dizziness, chest pain, dyspnea on exertion, abdominal pain, nausea, vomiting, diarrhea, back pain, neck pain, or any other complaints. Time/Duration: < week Symptom Onset: Gradual Activities at Onset: Light Context: Work Past Medical History - Provider Review Nursing Documentation Reviewed: Yes - Past History Past History: No Previous - Infectious Disease Hx of Infectious Diseases: None - Reproductive Menopause: Yes - Past Medical History Past Medical History: No Previous - Cardiac Hx Cardiac Disorders: No - Pulmonary Hx Lung Cancer: Yes (on chemo) - Neurological Hx Neurological Disorder: No - HEENT Hx HEENT Disorder: No - Renal Hx Renal Disorder: Yes Hx Renal Failure: Yes - Endocrine/Metabolic Hx Endocrine Disorders: No - Hematological/Oncological Hx Blood Disorders: Yes Hx Blood Transfusions: Yes - Integumentary Hx Dermatological Disorder: No - Musculoskeletal/Rheumatological Hx Musculoskeletal Disorders: No - Gastrointestinal Hx Gastrointestinal Disorders: No - Genitourinary/Gynecological Hx Genitourinary Disorders: No - Psychiatric Hx Psychophysiologic Disorder: No Hx Substance Use: No - Surgical History Other/Comment: R chest port - Anesthesia Hx Anesthesia: Yes Hx Anesthesia Reactions: No Hx Malignant Hyperthermia: No - Suicidal Assessment Feels Threatened In Home Enviroment: No Family/Social History - Physician Review Nursing Documentation Reviewed: Yes Family/Social History: No Known Family HX Smoking Status: Former Smoker Hx Alcohol Use: No Hx Substance Use: No Hx Substance Use Treatment: No Allergies/Home Meds Allergies/Adverse Reactions: Allergies No Known Allergies Allergy (Verified 03/31/18 21:52) Home Medications: Home Meds Medication Instructions Recorded Confirmed Carvedilol [Coreg] 3.125 mg PO BID 07/27/18 07/27/18 Codeine Phosphate/Guaifenesin 0 ml PO PRN PRN 07/27/18 07/27/18 [Virtussin AC Liquid] D- Amphetamin Salt Combo 20 mg PO DAILY 07/27/18 Furosemide [Lasix] 40 mg PO PRN 07/27/18 07/27/18 Magnesium Carbonate PO DAILY 07/27/18 Potassium Chloride [K-Tab ER] 10 meq PO DAILY 07/27/18 07/27/18 oxyCODONE [oxycodone Hydrochloride] 10 mg PO PRN PRN 07/27/18 07/27/18 Review of Systems - Physician Review All systems were reviewed & negative as marked: Yes - Review of Systems Constitutional: absent: Fevers, Night Sweats ENT: Other (hemoptysis ) Respiratory: SOB, Cough Cardiovascular: absent: Chest Pain Gastrointestinal: absent: Abdominal Pain, Diarrhea, Nausea, Vomiting Genitourinary Female: absent: Dysuria Musculoskeletal: absent: Back Pain, Neck Pain Skin: absent: Rash Neurological: absent: Headache, Dizziness Physical Exam - Physical Exam Narrative Physical Exam (Text): 07/27/18 18:24 General: Chronically ill appearing, cachectic Vital Signs Reviewed: Yes Vital Signs Temp Pulse Resp BP Pulse Ox 07/27/18 18:55 100.1 F H 135 H 18 95 07/27/18 18:02 98.3 F 120 H 22 111/75 85 L Temperature: Afebrile Blood Pressure: Normal Pulse: Tachycardic Respiratory Rate: Normal Appearance: Positive for: Well-Appearing, Non-Toxic, Comfortable Pain Distress: None Mental Status: Positive for: Alert and Oriented X 3 - Systems Exam Head: Present: Atraumatic, Normocephalic Pupils: Present: PERRL Extroacular Muscles: Present: EOMI Conjunctiva: Present: Normal Mouth: Present: Moist Mucous Membranes Neck: Present: Normal Range of Motion Respiratory/Chest: Present: Clear to Auscultation, Good Air Exchange. No: Respiratory Distress, Accessory Muscle Use Cardiovascular: Present: Regular Rate and Rhythm, Normal S1, S2. No: Murmurs Abdomen: No: Tenderness, Distention, Peritoneal Signs Back: Present: Normal Inspection Upper Extremity: Present: Normal Inspection. No: Cyanosis, Edema Lower Extremity: Present: Normal Inspection. No: Edema Neurological: Present: GCS=15, CN II-XII Intact, Speech Normal Skin: Present: Warm, Dry, Normal Color. No: Rashes Psychiatric: Present: Alert, Oriented x 3, Normal Insight, Normal Concentration Medical Decision Making ED Course and Treatment: 07/27/18 18:24 Impression: Patient is a 62 year old female who presents to the emergency department with cough, shortness of breath, and hemoptysis. ro pna copd plerual effusion Plan: -- CT Chest W/O Contrast -- Chest X-Ray -- Labs -- EKG -- Duoneb -- SOLU-medrol -- Tylenol -- Vancomycin -- Zosyn -- Influenza A/B -- Urinalysis Progress: 07/30/18 20:36 cxr pleural effusiona s read by me seen by dr curry bedside ct pending. antibiotics steriods nebs given. stable for tele - RAD Interpretation Radiology Orders: 07/27/18 18:39 CHEST PORTABLE [RAD] Stat 07/27/18 18:42 CHEST W/O CONTRAST [CT] Stat - Medication Orders Current Medication Orders: Albuterol/Ipratropium (Duoneb 3 Mg/0.5 Mg (3 Ml) Ud) 3 ml IH Q15M LUZ MARINA Stop: 07/27/18 19:16 Vancomycin HCl (Vancomycin 1gm) 1 gm in 250 mls @ 167 mls/hr IVPB STAT STA; Protocol Stop: 07/27/18 20:10 Piperacillin Sod/Tazobactam Sod (Zosyn 3.375 In Ns 100ml) 100 mls @ 200 mls/hr IVPB STAT STA; Protocol Stop: 07/27/18 19:10 Discontinued Medications Acetaminophen (Tylenol 325mg Tab) 975 mg PO STAT STA Stop: 07/27/18 18:42 Methylprednisolone (Solu-Medrol) 125 mg IVP STAT STA Stop: 07/27/18 18:42 - Scribe Statement The provider has reviewed the documentation as recorded by the Scribe Freddie Forde All medical record entries made by the Huibe were at my direction and personally dictated by me. I have reviewed the chart and agree that the record accurately reflects my personal performance of the history, physical exam, medical decision making, and the department course for this patient. I have also personally directed, reviewed, and agree with the discharge instructions and disposition. Disposition/Present on Arrival - Present on Arrival Any Indicators Present on Arrival: No History of DVT/PE: No History of Uncontrolled Diabetes: No Urinary Catheter: No History of Decub. Ulcer: No History Surgical Site Infection Following: None - Disposition Have Diagnosis and Disposition been Completed?: Yes Diagnosis: Pleural effusion, Lung cancer, COPD (chronic obstructive pulmonary disease) Disposition: HOSPITALIZED Disposition Time: 14:00 Condition: GOOD
[2018-07-27 19:16] LABS: INR 1.32; PARTIAL THROMBOPLASTIN TIME 35.4 Seconds (26.9-38.3); PROTHROMBIN TIME 14.7 SECONDS (9.4-12.5)
[2018-07-27 19:18] LABS: ALBUMIN 3.8 g/dL (3.0-4.8); ALT/SGPT 11 U/L (7-56); AST/SGOT 42 U/L (14-36); BLOOD UREA NITROGEN 24 mg/dL (7-21); CALCIUM 10.3 mg/dL (8.4-10.5); GFR NON-AFRICAN AMERICAN 50
[2018-07-27 19:29] LABS: TROPONIN I < 0.01 ng/mL
[2018-07-27] MEDS ORDERED: oxyCODONE 10 mg Immediate Release Tab PO PRN (20:06)
[2018-07-27] MEDS ORDERED: guaiFENesin-Codeine 100-10mg/5ml Syrup (5 ml) UD PO PRN (20:10)
[2018-07-27] MEDS: MethylPREDNISolone 40 mg Vial IVP SCH (20:39)
--- NOTE | 2018-07-27 20:52 | HP ---
DATE OF EXAM: 07/27/2018 HISTORY OF PRESENT ILLNESS: Ms. Quinn is a 62-year-old female with stage IV squamous cell carcinoma. She had a large lesion in the left side of the chest and left adrenal metastatic lesion. Recent CAT scan of the chest with IV contrast showed another 1 cm right upper lobe lesion. Mediastinal lymphadenopathy. She developed hemoptysis for 3 days now, starting from Friday, she was saying she has scant hemoptysis. She still has scant hemoptysis. Shortness of breath increased from the baseline. She has COPD with pulmonary hypertension. She also takes Adderall for ADD. She has baseline tachycardia. Currently, tachycardic to 127 heart beat per minute. She denies any fever, chills, or rigors. Received one dose of vancomycin and Zosyn. Chest x-ray showed out of left lung likely pleural effusion on the left side. PAST MEDICAL HISTORY: COPD, terminal lung cancer, pulmonary hypertension, history of acute renal failure, chronic anemia. PAST SURGICAL HISTORY: Biopsy of the left adrenal port placement. FAMILY HISTORY: Noncontributory. PERSONAL HISTORY: Heavy smoker in the past. No history of substance abuse. ALLERGIES: NO KNOWN DRUG ALLERGIES. HOME MEDICATIONS: Coreg 3.125 mg p.o. b.i.d. cough syrup amphetamine 20 mg p.o. t.i.d., Lasix 40 mg daily, oxycodone p.r.n. for pain. REVIEW OF SYSTEMS: As per HPI. Rest of 12-point review of systems reviewed negative. PHYSICAL EXAMINATION: VITAL SIGNS: Tachycardia. Heart rate 127 per minute, respiratory rate 18 per minute, pulse ox is 95% on room air, temperature 101.1 in the ED. HEENT: Pallor positive. NECK: No lymphadenopathy. CHEST: Air entry absent on the right side. No rhonchi. Accessory muscle use presently. ABDOMEN: Soft, nontender. No hepatosplenomegaly. EXTREMITIES: No edema. CORRECTIONS LIEUTENANT: Alert and oriented x3. No focal deficits. No motor deficits. SKIN. No petechiae. No rash. LABORATORY DATA: White count 11.1, hemoglobin 11.3, hematocrit 35.1, and platelets 304. Sodium 131, potassium 4.2, creatinine 1.1, AST 42, ALT 11, alkaline phosphatase 136, LDH 311. Chest x-ray, left out. ASSESSMENT AND PLAN: 1. 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 Left-sided pleural effusion. Scant hemoptysis. We will get thoracocentesis and consultation with Dr. Dez Laird requested. We will give low dose steroids, Solu-Medrol 20 mg daily. Continue IV antibiotics. We will get ID consultation with Dr. Stuart. 2. Attention deficit disorder, currently on Adderall 20 mg p.o. t.i.d. We will continue that. 3. Chronic obstructive pulmonary disease, bronchodilators, IV antibiotics. 4. Tachycardia. Continue Coreg. Cardiology consultation with Dr. Mathews requested for tachycardia likely sinus tachycardia. 5. Deep venous thrombosis prophylaxis, on heparin 5000 b.i.d. Blood cultures and urine cultures. Christine Wood MD
[2018-07-28 00:14] VITALS: BMI 21.7
[2018-07-28 02:06] LABS: URINE BILIRUBIN NEGATIVE (NEGATIVE); URINE BLOOD TRACE-INTACT (NEGATIVE); URINE GLUCOSE (UA) NEGATIVE (NEGATIVE); URINE LEUKOCYTE ESTERASE NEGATIVE Leu/uL (NEGATIVE); URINE PROTEIN TRACE mg/dL (<30 mg/dL); URINE UROBILINOGEN 0.2 E.U./dL (<1 E.U./dL)
[2018-07-28 02:13] LABS: URINE APPEARANCE CLEAR (CLEAR); URINE COLOR YELLOW (YELLOW)
[2018-07-28 02:17] LABS: URINE BACTERIA FEW /hpf; URINE RBC 0 - 2 /hpf (0-2)
[2018-07-28] MEDS: Piperacillin/Tazobact 3.375 gm 100 ML IVPB SCH ×3 (06:35→22:01)
[2018-07-28] MEDS: Levalbuterol 0.63 MG/3 ML Inhal Soln UD IH SCH ×3 (07:50→20:48)
[2018-07-28] MEDS: Ipratropium 0.02% Inhal Soln (0.5 mg/2.5 ml) UD IH SCH ×3 (07:50→20:48)
--- NOTE | 2018-07-28 08:22 | RAD ---
Date of service: 07/27/2018 HISTORY: sob COMPARISON: 02/17/2018 FINDINGS: LUNGS: There is dense consolidation in the left lower lobe with mediastinal shift to the left. Findings are consistent with atelectasis. PLEURA: Probable left effusion CARDIOVASCULAR: No aortic atherosclerotic calcification present. Normal cardiac size. No pulmonary vascular congestion. OSSEOUS STRUCTURES: No significant abnormalities. VISUALIZED UPPER ABDOMEN: Normal. OTHER FINDINGS: None. IMPRESSION: There is dense consolidation in the left lower lobe with mediastinal shift to the left. Findings are consistent with atelectasis.
--- NOTE | 2018-07-28 08:41 | CT ---
Date of service: 07/27/2018 PROCEDURE: CT Chest without contrast HISTORY: cough hemoptysis h/o of lung ca COMPARISON: 04/01/2018. TECHNIQUE: Contiguous axial images were obtained through the chest without intravenous contrast enhancement. Sagittal and coronal reconstructions were performed. Radiation dose (DLP): 152.46 mGy-cm. This CT exam was performed using one or more of the following dose reduction techniques: Automated exposure control, adjustment of the mA and/or kV according to patient size, and/or use of iterative reconstruction technique. FINDINGS: LUNGS: Extensive opacification of the left lung with some residual aerated lung in the left upper lobe. Complete consolidation of left lower lobe. Possible prior partial left pneumonectomy. There is fluid seen in the left mainstem and lower lobe bronchi, possibly mucous secretion or mucous plugging. There is centrilobular pulmonary emphysema. There is chronic interstitial fibrosis predominantly in the right lower lobe but also scattered areas of subpleural fibrosis in the right lung. There is no right-sided pulmonary mass. MEDIASTINUM: Unremarkable thoracic aorta. No aneurysm. There is midline shift towards the left as a result of left-sided volume loss. Normal sized heart. Dilatation of the main pulmonary artery up to a diameter approximately 3.3 cm. This may correlate with pulmonary arterial hypertension. There is mediastinal lymphadenopathy noted. There is atherosclerotic calcification of the thoracic aorta. A right central venous infusion port is noted terminating at the cavoatrial junction. PLEURA: Small left pleural effusion. No right pleural effusion. Please note that there is some high attenuation material seen within the right pleural effusion which may reflect blood products or neoplasm. There are some scattered gas bubbles at the posterior left mid to lower hemithorax, possibly within the pleural space. This raises the possibility of infection. Previously, yonatan empyema was noted in this location.. BONES: No acute fracture. Scattered nonspecific sclerotic foci possibly representing blastic metastasis. This has progressed since prior examination and now involves multiple ribs, left greater than right. UPPER ABDOMEN: Bilateral adrenal hyperplasia. OTHER FINDINGS: None. IMPRESSION: Extensive left lung atelectasis with residual aerated lung in the left upper lobe. Possible prior partial left pneumonectomy. Fluid or mucous secretion/mucous plugging in the left lower lobe bronchus. Small left pleural effusion with gas bubbles raising suspicion of an infectious process.. No pneumothorax. High attenuation material in left pleural fluid of uncertain significance. Centrilobular pulmonary emphysema. Chronic interstitial fibrotic change. Mediastinal lymphadenopathy. Scattered sclerotic osseous foci suspicious for blastic metastasis. Bilateral adrenal hyperplasia. The preliminary findings for this examination were reported by [facility] Radiology at 9:45 p.m. on 07/27/2018. There is concurrence of this report with the preliminary findings.
--- NOTE | 2018-07-28 09:08 | PN ---
DATE: 07/28/2018 SUBJECTIVE: She is still tachypneic, tachycardia improved, heart rate is 104, yesterday it was up to 130. Temperature 97.4. No events overnight. No hemoptysis. Blood pressure is well maintained. No fever. REVIEW OF SYSTEMS: As per HPI. Rest of 12-point review of systems reviewed and negative. PHYSICAL EXAMINATION GENERAL: Comfortable in bed, tachypnea and tachycardia improved. VITAL SIGNS: Temperature 97.4, heart rate 104, blood pressure 106/74, respiratory rate 18 per minute and oxygen saturation 95% on oxygen by nasal cannula. HEENT: Pallor positive. NECK: No lymphadenopathy. CHEST: Air entry decreased on the left side. CARDIOVASCULAR: Tachycardia. ABDOMEN: Soft and nontender. No hepatosplenomegaly. EXTREMITIES: No edema. CENTRAL NERVOUS SYSTEM: Alert, oriented x3. No focal sensory or motor deficit. SPINE: Nontender. LABORATORY DATA: White count 11.1, hemoglobin 11.3, hematocrit 35.1, and platelets 304. Creatinine 1.4 and sodium 131. MEDICATIONS: Zithromax 500 mg daily, Coreg 3.125 mg b.i.d., Pepcid 20 mg IV b.i.d., cough syrup t.i.d., Xopenex, Zyvox, Solu-Medrol 20 mg IV daily, Atrovent 20 mg p.o. t.i.d., oxycodone p.r.n. and Zosyn. ASSESSMENT AND PLAN: Stage IV lung cancer squamous cell, now with new left pleural effusion. Consult requested by Dr. Dez Laird for thoracocentesis. His squamous cell cancer is knowing to cavitate. She has scant hemoptysis. Currently on IV antibiotics as per Infectious Diseases, vancomycin, Zosyn and linezolid. We will continue bronchodilators, Xopenex, ipratropium, Solu-Medrol 20 mg IV daily. Renal function is normal limit. Hemoglobin and hematocrit normal. Sinus tachycardia on Coreg 3.125 mg b.i.d. Cardiology consultation Dr. Mathews. Prognosis is poor. Christine Wood MD [facility] # [id number]
[2018-07-28 09:14] LABS: BLOOD UREA NITROGEN 26 mg/dL (7-21); GFR NON-AFRICAN AMERICAN 50
[2018-07-28 09:18] LABS: HEMOGLOBIN 11.4 g/dL (12.0-16.0); LYMPH # 0.9 (1.2-3.4); LYMPH % 10.9 % (22.0-35.0); MEAN CELL VOLUME 86.2 fl (80.0-105.0); MEAN CORPUSCULAR HEMOGLOBIN 27.5 pg (25.0-35.0); MEAN CORPUSCULAR HGB CONC 31.9 g/dl (31.0-37.0); MEAN PLATELET VOLUME 8.4 fl (7.0-11.0); MONO # 0.1 (0.1-0.6); RBC 4.14 10^6/uL (3.5-6.1); RED CELL DISTRIBUTION WIDTH 18.5 % (11.5-14.5); WHITE BLOOD COUNT 7.8 10^3/uL (4.5-11.0)
[2018-07-28] MEDS: MethylPREDNISolone 40 mg Vial IVP SCH (10:13)
[2018-07-28] MEDS: Linezolid 600 mg in D5W 300 ml 600 MG/300 ML BAG IVPB SCH ×2 (10:14→22:01)
[2018-07-28] MEDS: guaiFENesin-Codeine 100-10mg/5ml Syrup (5 ml) UD PO SCH ×3 (10:15→17:54)
[2018-07-28] MEDS: [UNRECOGNIZED DRUG - OTHER] PO SCH ×3 (10:15→17:50)
--- NOTE | 2018-07-28 10:20 | CARD ---
APPROVED REPORT Date of service: 07/27/2018 EKG Measurement Heart [id number] <Conclusion> Sinus tachycardia Nonspecific ST and T wave abnormality Abnormal ECG
--- NOTE | 2018-07-28 14:21 | CP.PCM.CON ---
History of Present Illness - History of Present Illness History of Present Illness: 62 year old female with PMH of COPD, lung cancer, extensive smoking history, history of methicillin-sensitive staph aureus bacteremia, probably port-related bacteremia, history of left sided HCAP came in to [place] because of worsening shor tness of breath as well as cough and hemoptysis for the past 2-3 days. She denies having fevers or chills, no nausea or vomiting, no headache or dizziness, no abdominal pain, no diarrhea, no dysuria. She states that she has had hemoptysis before when she was diagnosed with lung cancer. CT chest is showing left sided pleural effusion, as well consolidation and atelectasis. Infectious Diseases consult is requested to further evaluate and manage. Review of Systems - Review of Systems All systems: reviewed and no additional remarkable complaints except (as per HPI) Past Patient History - Infectious Disease Hx of Infectious Diseases: None - Past Social History Smoking Status: Former Smoker - CARDIAC Hx Cardiac Disorders: No - PULMONARY Hx Respiratory Disorders: Yes Hx Chronic Obstructive Pulmonary Disease (COPD): Yes - NEUROLOGICAL Hx Neurological Disorder: No - HEENT Hx HEENT Problems: Yes (wears glasses) - RENAL Hx Chronic Kidney Disease: Yes Hx Renal Failure: Yes - ENDOCRINE/METABOLIC Hx Endocrine Disorders: No - HEMATOLOGICAL/ONCOLOGICAL Hx Blood Disorders: Yes Hx Cancer: Yes (Stage IV lung CA) Hx Chemotherapy: Yes (last chemo: 07/20/18) - INTEGUMENTARY Hx Dermatological Problems: No - MUSCULOSKELETAL/RHEUMATOLOGICAL Hx Musculoskeletal Disorders: No Hx Falls: No - GASTROINTESTINAL Hx Gastrointestinal Disorders: No - GENITOURINARY/GYNECOLOGICAL Hx Genitourinary Disorders: No - PSYCHIATRIC Hx Psychophysiologic Disorder: No Hx Substance Use: No - SURGICAL HISTORY Hx Surgeries: Yes Other/Comment: Breast Reduction. Inguinal Hernia Repair. R chest wall PAC - ANESTHESIA Hx Anesthesia: Yes Hx Anesthesia Reactions: No Hx Malignant Hyperthermia: No Meds Allergies/Adverse Reactions: Allergies Allergy/AdvReac Type Severity Reaction Status Date / Time No Known Allergies Allergy Verified 03/31/18 21:52 - Medications Medications: Current Medications Carvedilol (Coreg) 3.125 mg PO BID [facility] Last Admin: 07/27/18 20:47 Dose: 3.125 mg Famotidine (Pepcid) 20 mg PO DAILY [facility] Last Admin: 07/27/18 20:47 Dose: 20 mg Guaifenesin/Codeine Phosphate (Robitussin W/Codeine) 5 ml PO TID [facility] Guaifenesin/Codeine Phosphate (Robitussin W/Codeine) 5 ml PO Q4H PRN PRN Reason: Cough and congestion Ipratropium [place] (Atrovent) 0.5 mg IH TID [facility] Levalbuterol HCl (Xopenex) 0.63 mg IH TID [facility] Methylprednisolone (Solu-Medrol) 20 mg IVP DAILY [facility] Last Admin: 07/27/18 20:39 Dose: Not Given D- Amphetamin Salt Combo 20 Mg (Home Med) 20 mg PO TID [facility] Oxycodone HCl (Oxycodone Immediate Release Tab) 10 mg PO Q4H PRN PRN Reason: Pain, moderate (4-7) Physical Exam - Constitutional Appears: Chronically Ill - Head Exam Head Exam: NORMAL INSPECTION - ENT Exam ENT Exam: Mucous Membranes Moist - Neck Exam Neck exam: Negative for: Lymphadenopathy, Meningismus - Respiratory Exam Respiratory Exam: Decreased Breath Sounds - Cardiovascular Exam Cardiovascular Exam: +S1, +S2 - GI/Abdominal Exam GI & Abdominal Exam: Soft. absent: Tenderness Results - Vital Signs Recent Vital Signs: Last Vital Signs Temp 97.8 F 07/28/18 00:01 Pulse 105 H 07/28/18 02:00 Resp 20 07/28/18 00:01 BP 95/67 L 07/28/18 00:01 Pulse Ox 95 07/28/18 00:01 - Labs Result Diagrams: 07/28/18 08:45 07/28/18 08:45 Labs: Laboratory Results - last 24 hr 07/27/18 07/27/18 07/27/18 18:50 18:50 18:50 WBC 11.1 H RBC 4.05 Hgb 11.3 L Hct 35.1 L MCV 86.7 MCH 27.9 MCHC 32.2 RDW 18.7 H Plt Count 304 MPV 8.6 Neut % (Auto) 77.0 H Lymph % (Auto) 14.5 L [place] % (Auto) 7.9 H Eos % (Auto) 0.4 L Baso % (Auto) 0.2 Lymph # (Auto) 1.6 [place] # (Auto) 0.9 H Eos # (Auto) 0.0 Baso # (Auto) 0.02 Absolute Neuts (auto) 8.58 H PT 14.7 H INR 1.32 APTT 35.4 pO2 VBG pH VBG pCO2 VBG HCO3 VBG Total CO2 VBG O2 Sat (Calc) VBG Base Excess VBG Potassium Glucose Lactate FiO2 Sodium 131 L Potassium 4.2 Chloride 90 L Carbon Dioxide 32 Anion Gap 14 BUN 24 H Creatinine 1.1 Est GFR ( Amer) > 60 Est GFR (Non-Af Amer) 50 Random Glucose 105 Calcium 10.3 Magnesium 1.7 Total Bilirubin 0.6 AST 42 H D ALT 11 Alkaline Phosphatase 136 H D Lactate Dehydrogenase 311 L Total Creatine Kinase < 20 L Troponin I < 0.01 Total Protein 7.7 Albumin 3.8 Globulin 3.9 Albumin/Globulin Ratio 1.0 L Venous Blood Potassium Urine Color Urine Appearance Urine pH Ur Specific [place] Urine Protein Urine Glucose (UA) Urine Ketones Urine Blood Urine Nitrate Urine Bilirubin Urine Urobilinogen Ur Leukocyte Esterase Urine RBC Urine WBC Ur Epithelial Cells Urine Bacteria Influenza Typ A,B (EIA) 07/27/18 07/27/18 07/28/18 19:00 20:02 00:56 WBC RBC Hgb Hct MCV MCH MCHC RDW Plt Count MPV Neut % (Auto) Lymph % (Auto) [place] % (Auto) Eos % (Auto) Baso % (Auto) Lymph # (Auto) [place] # (Auto) Eos # (Auto) Baso # (Auto) Absolute Neuts (auto) PT INR APTT pO2 39 VBG pH 7.42 VBG pCO2 50.0 VBG HCO3 32.4 H VBG Total CO2 33.9 H VBG O2 Sat (Calc) 81.7 H VBG Base Excess 6.6 H VBG Potassium 4.0 Glucose 104 Lactate 0.7 FiO2 21.0 Sodium 129.0 L Potassium Chloride 93.0 L Carbon Dioxide Anion Gap BUN Creatinine Est GFR ( Amer) Est GFR (Non-Af Amer) Random Glucose Calcium Magnesium Total Bilirubin AST ALT Alkaline Phosphatase Lactate Dehydrogenase Total Creatine Kinase Troponin I Total Protein Albumin Globulin Albumin/Globulin Ratio Venous Blood Potassium 4.0 Urine Color Yellow Urine Appearance Clear Urine pH 6.0 Ur Specific [place] 1.010 Urine Protein Trace H Urine Glucose (UA) Negative Urine Ketones Negative Urine Blood Trace-intact H Urine Nitrate Negative Urine Bilirubin Negative Urine Urobilinogen 0.2 Ur Leukocyte Esterase Negative Urine RBC 0 - 2 Urine WBC 1 - 3 Ur Epithelial Cells 4 - 5 Urine Bacteria Few Influenza Typ A,B (EIA) Negative for flu a/b Assessment & Plan - Assessment and Plan (Free Text) Plan: Assessment systemic inflammatory response syndrome, consider sepsis due to left sided HCAP in this patient with lung cancer history of severe sepsis from methicillin-sensitive staph aureus bacteremia, probably port-related bacteremia, S/P port removal history of left sided HCAP history of fever and neutropenia bilateral lower extremity swelling, consider venous stasis acute on chronic renal failure S/P Sepsis due to left lower HCAP, probably post-obstructive pneumonitis in a patient with poorly-differentiated squamous cell lung CA with cavitary lesion extensive smoking history Plan we have started Vancomycin, Zosyn and Zithromax pending blood, sputum cx, PCT, urine Legionella patient may need to have thoracentesis will monitor clinically overall prognosis is poor
--- NOTE | 2018-07-28 18:09 | CON ---
DATE: 07/28/2018 REASON FOR CONSULTATION: Sinus tachycardia, cardiac evaluation. 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 Cardiac evaluation for tachycardia, heart rate 127. The patient denies any chest pain, shortness of breath, or any palpitation. The patient is on home oxygen. PAST MEDICAL HISTORY: Significant for COPD, stage IV terminal lung cancer, pulmonary hypertension, history of acute kidney injury in the past, history of chronic anemia, lung CA diagnosed in 06/2017, history of hemoptysis 12/2017, history of status post chemo right lower lobe of the lung involving the tumor as mentioned. PAST SURGICAL HISTORY: Significant for biopsy of the lung as well as Port-A-Cath placement. FAMILY HISTORY: Noncontributory. PERSONAL HISTORY: Heavy smoker in the past, quit after diagnosed the lung CA. CURRENT MEDICATIONS: The patient is taking at home; potassium chloride, codeine, guaifenesin, Lasix 40 mg daily, metoprolol 25 mg p.o. b.i.d., carvedilol 3.125 mg daily, oxycodone and magnesium as well. PREVIOUS CARDIAC WORKUP: As follows, the patient had MUGA scan done 02/18/2018 that showed ejection fraction 35%, moderate LV dysfunction with diffuse hypokinesis, normal RV function, mild splenomegaly. The patient had echocardiography done dated 09/18/2017 that showed normal LV function, normal segmental wall motion, mitral valve trace to mild, mild tricuspid regurgitation, mild pulmonary hypertension. REVIEW OF SYSTEMS: As per HPI. PHYSICAL EXAMINATION GENERAL: Height of the patient 4 feet 10 inches, weight of the patient 104 pounds, body mass index 21.7 kg/m2. VITAL SIGNS: Temperature afebrile, heart rate 119, blood pressure 120/74. HEENT: PERRLA. Extraocular muscles intact. NECK: Supple. No carotid bruits or thyromegaly. CHEST: Clear to auscultation. HEART: S1 and S2, regular. ABDOMEN: Soft. EXTREMITIES: Clubbing and cyanosis negative. LABORATORY DATA: WBC 7.8, hemoglobin 11.4, hematocrit 35.7, platelet count 339. Chemistry showed sodium 131, potassium 4.3, chloride 92, carbon dioxide 30, anion gap of 12, BUN 26, and creatinine 1.1. EKG shows sinus tachycardia, heart rate of 120. IMPRESSION: A 62-year-old female with past medical history of terminal lung cancer, history of chronic obstructive pulmonary disease, history of hemoptysis, recently diagnosed lung carcinoma, stage IV. The patient had MUGA scan done on last admission in February, severely decreased left ventricular function, admitted with shortness of breath and tachycardia, baseline heart rate is 120. RECOMMENDATIONS: We will increase dose of metoprolol 25 mg b.i.d. The patient was on Coreg for decreased LV function the patient had heart rate. We will get echo to assess LV function as well as rule out any pericardial effusion. We will get TSH, lipid profile. Further recommendation after the hospital course. We will follow with you. Thank you Dr. Wood, for providing us the opportunity in taking care of the patient, Kai Hunter. Nikita Mathews MD
--- NOTE | 2018-07-28 20:42 | US ---
Date of service: 07/28/2018 PROCEDURE: Sonography of the left chest. HISTORY: THORACENTESIS COMPARISON: TECHNIQUE: FINDINGS: No significant pleural fluid was noted on the left. There is significant volume loss in the left lung associated tumor. A therapeutic thoracentesis was not performed. IMPRESSION: No significant fluid in the left chest. The x-ray and CT findings demonstrate significant volume loss and tumor in the left chest. A therapeutic thoracentesis was not performed
[2018-07-29 00:05] VITALS: RESP 18
[2018-07-29] MEDS: Piperacillin/Tazobact 3.375 gm 100 ML IVPB SCH ×2 (05:19→14:54)
[2018-07-29 06:06] VITALS: TEMP 97.6; O2SAT 97
[2018-07-29 06:20] LABS: BASO # 0.02 K/mm3 (0.0-2.0); BASO % 0.2 % (0.0-3.0); EOS % 0.2 % (1.5-5.0); HEMOGLOBIN 9.7 g/dL (12.0-16.0); LYMPH # 2.2 (1.2-3.4); LYMPH % 17.7 % (22.0-35.0); MEAN CELL VOLUME 87.2 fl (80.0-105.0); MEAN CORPUSCULAR HEMOGLOBIN 27.6 pg (25.0-35.0); MEAN CORPUSCULAR HGB CONC 31.6 g/dl (31.0-37.0); MEAN PLATELET VOLUME 8.3 fl (7.0-11.0); MONO # 1.2 (0.1-0.6); MONO % 9.6 % (1.0-6.0); RBC 3.52 10^6/uL (3.5-6.1); RED CELL DISTRIBUTION WIDTH 18.7 % (11.5-14.5); WHITE BLOOD COUNT 12.4 10^3/uL (4.5-11.0)
[2018-07-29 06:41] LABS: ALBUMIN 3.5 g/dL (3.0-4.8); ALT/SGPT < 6 U/L (7-56); AST/SGOT 45 U/L (14-36); BLOOD UREA NITROGEN 34 mg/dL (7-21); CALCIUM 9.6 mg/dL (8.4-10.5); GFR NON-AFRICAN AMERICAN 42; HDL CHOLESTEROL 37 mg/dL (29-60)
[2018-07-29 06:48] LABS: LDL CHOLESTEROL 73 mg/dL (0-129)
[2018-07-29] MEDS: Levalbuterol 0.63 MG/3 ML Inhal Soln UD IH SCH ×2 (07:58→13:23)
[2018-07-29] MEDS: Ipratropium 0.02% Inhal Soln (0.5 mg/2.5 ml) UD IH SCH ×4 (07:58→18:49)
--- NOTE | 2018-07-29 10:24 | CP.PCM.CON ---
History of Present Illness - History of Present Illness History of Present Illness: Ms Quinn is a 62 year old female with stage IV lung cancer. Her history dates back to 2016 when she was initially diagnosed with stage IV lung cancer. She had a CT/PET scan on May 23, 2017 which revealed a left pleural effusion. There was a large cavitary mass in the left lower lobe measuring 8.7 x 8.5cm. There was a sub-centimeter lymph node. There was a 1.7 x 1.7cm left adrenal gland. The MRI of the brain revealed no metastases. On July 01, 2017, she had a left adrenal gland biopsy revealed a squamous cell carcinoma. She started systemic therapy with you. Was initially treated with gemzar. A repeat CT of the chest, abdomen and pelvis on November 30, 2017 revealed a 5.7cm left lower lobe mass. There was a decreased mediastinal adenopathy. There was no change in the left adrenal mass. Since February, she has been treated with abraxane. Her last chemotherapy was two weeks ago. Recently, she has been having worsening shortness of breath and hemoptysis since Friday. A CT of the chest on July 27, 2018 revealed complete consolidation of the left lower lobe. There was fluid in the left mainstem bronchus and left lower lobe bronchi. There was mediastinal adenopathy. There were scattered sclerotic metastases which showed progression. A thoracentesis did not reveal much fluid. She is referred to us for palliative radiation therapy. Review of Systems - Constitutional Constitutional: Weight Loss - Respiratory Respiratory: Dyspnea, Hemoptysis Past Patient History - Infectious Disease Hx of Infectious Diseases: None - Past Social History Smoking Status: Former Smoker Alcohol: None Home Situation {Lives}: With Family - CARDIAC Hx Cardiac Disorders: No - PULMONARY Hx Respiratory Disorders: Yes Hx Chronic Obstructive Pulmonary Disease (COPD): Yes - NEUROLOGICAL Hx Neurological Disorder: No - HEENT Hx HEENT Problems: Yes (wears glasses) - RENAL Hx Chronic Kidney Disease: Yes Hx Renal Failure: Yes - ENDOCRINE/METABOLIC Hx Endocrine Disorders: No - HEMATOLOGICAL/ONCOLOGICAL Hx Blood Disorders: Yes Hx Cancer: Yes (Stage IV lung CA) Hx Chemotherapy: Yes (last chemo: 07/20/18) - INTEGUMENTARY Hx Dermatological Problems: No - MUSCULOSKELETAL/RHEUMATOLOGICAL Hx Musculoskeletal Disorders: No Hx Falls: No - GASTROINTESTINAL Hx Gastrointestinal Disorders: No - GENITOURINARY/GYNECOLOGICAL Hx Genitourinary Disorders: No - PSYCHIATRIC Hx Psychophysiologic Disorder: No Hx Substance Use: No - SURGICAL HISTORY Hx Surgeries: Yes Other/Comment: Breast Reduction. Inguinal Hernia Repair. R chest wall PAC - ANESTHESIA Hx Anesthesia: Yes Hx Anesthesia Reactions: No Hx Malignant Hyperthermia: No Meds Allergies/Adverse Reactions: Allergies Allergy/AdvReac Type Severity Reaction Status Date / Time No Known Allergies Allergy Verified 03/31/18 21:52 - Medications Medications: Current Medications Azithromycin (Zithromax) 500 mg PO DAILY [facility]; Protocol Last Admin: 07/28/18 10:14 Dose: 500 mg Famotidine (Pepcid) 20 mg PO DAILY [facility] Last Admin: 07/28/18 10:14 Dose: 20 mg Guaifenesin/Codeine Phosphate (Robitussin W/Codeine) 5 ml PO TID [facility] Last Admin: 07/28/18 17:54 Dose: 5 ml Guaifenesin/Codeine Phosphate (Robitussin W/Codeine) 5 ml PO Q4H PRN PRN Reason: Cough and congestion Last Admin: 07/28/18 06:44 Dose: 5 ml Piperacillin Sod/Tazobactam Sod (Zosyn 3.375 In Ns 100ml) 100 mls @ 25 mls/hr IVPB Q8 [facility]; Protocol Stop: 08/04/18 06:01 Last Admin: 07/29/18 05:19 Dose: 25 mls/hr Linezolid (Zyvox 600mg/300ml D5w) 600 mg in 300 mls @ 200 mls/hr IVPB Q12 [facility]; Protocol Stop: 08/04/18 10:01 Last Admin: 07/28/18 22:01 Dose: 200 mls/hr Ipratropium [place] (Atrovent) 0.5 mg IH TID [facility] Last Admin: 07/29/18 08:00 Dose: 0.5 mg Levalbuterol HCl (Xopenex) 0.63 mg IH TIDRESP [facility] Last Admin: 07/29/18 07:58 Dose: 0.63 mg Methylprednisolone (Solu-Medrol) 20 mg IVP DAILY [facility] Last Admin: 07/28/18 10:13 Dose: 20 mg Metoprolol Tartrate (Lopressor) 25 mg PO TID [facility] D- Amphetamin Salt Combo 20 Mg (Home Med) 20 mg PO TID [facility] Last Admin: 07/28/18 17:50 Dose: Not Given Oxycodone HCl (Oxycodone Immediate Release Tab) 10 mg PO Q4H PRN PRN Reason: Pain, moderate (4-7) Physical Exam - Eye Exam Eye Exam: EOMI - ENT Exam ENT Exam: Mucous Membranes Moist - Respiratory Exam Respiratory Exam: Decreased Breath Sounds - Cardiovascular Exam Cardiovascular Exam: REGULAR RHYTHM - GI/Abdominal Exam GI & Abdominal Exam: Normal Bowel Sounds - Neurological Exam Neurological exam: CN II-XII Intact, Oriented x3 Results - Vital Signs Recent Vital Signs: Last Vital Signs Temp 97.6 F 07/29/18 06:00 Pulse 106 H 07/29/18 06:00 Resp 18 07/29/18 06:00 BP 113/80 07/29/18 06:00 Pulse Ox 97 07/29/18 06:00 - Labs Result Diagrams: 07/29/18 05:30 07/29/18 05:30 Labs: Laboratory Results - last 24 hr 07/28/18 07/29/18 07/29/18 08:45 05:30 05:30 WBC 12.4 H D RBC 3.52 Hgb 9.7 L Hct 30.7 L MCV 87.2 MCH 27.6 MCHC 31.6 RDW 18.7 H Plt Count 365 MPV 8.3 Neut % (Auto) 72.3 H Lymph % (Auto) 17.7 L [place] % (Auto) 9.6 H Eos % (Auto) 0.2 L Baso % (Auto) 0.2 Lymph # (Auto) 2.2 [place] # (Auto) 1.2 H Eos # (Auto) 0.0 Baso # (Auto) 0.02 Absolute Neuts (auto) 8.93 H Sodium 133 Potassium 3.6 Chloride 94 L Carbon Dioxide 32 Anion Gap 11 BUN 34 H Creatinine 1.3 H Est GFR ( Amer) 50 Est GFR (Non-Af Amer) 42 Random Glucose 103 Calcium 9.6 Phosphorus 4.1 Magnesium 1.8 Total Bilirubin 0.3 AST 45 H ALT < 6 L Alkaline Phosphatase 129 H Total Protein 7.1 Albumin 3.5 Globulin 3.5 Albumin/Globulin Ratio 1.0 L Triglycerides 88 Cholesterol 132 LDL Cholesterol Direct 73 HDL Cholesterol 37 Procalcitonin 0.19 TSH 3rd Generation 07/29/18 05:30 WBC RBC Hgb Hct MCV MCH MCHC RDW Plt Count MPV Neut % (Auto) Lymph % (Auto) [place] % (Auto) Eos % (Auto) Baso % (Auto) Lymph # (Auto) [place] # (Auto) Eos # (Auto) Baso # (Auto) Absolute Neuts (auto) Sodium Potassium Chloride Carbon Dioxide Anion Gap BUN Creatinine Est GFR ( Amer) Est GFR (Non-Af Amer) Random Glucose Calcium Phosphorus Magnesium Total Bilirubin AST ALT Alkaline Phosphatase Total Protein Albumin Globulin Albumin/Globulin Ratio Triglycerides Cholesterol LDL Cholesterol Direct HDL Cholesterol Procalcitonin TSH 3rd Generation 4.90 H Assessment & Plan - Assessment and Plan (Free Text) Assessment: Ms Quinn is a 62 year old female with stage IV lung cancer with decreased progression. She is now admitted with shortness of breath and hemoptysis, most likely secondary to her disease. As we discussed, we would concur that she would benefit from palliative radiation to the central lung disease. We spoke to the patient about radiation therapy including the risks and benefits. Informed consent was obtained. We will schedule her for a simulation today and begin as well.
--- NOTE | 2018-07-29 12:26 | PN ---
DATE: 07/29/2018 REASON FOR CONSULTATION: Sinus tachycardia, cardiac evaluation, advanced lung CA with metastasis. PHYSICAL EXAMINATION: VITAL SIGNS: Temperature afebrile, heart rate 104, blood pressure 113/80. HEENT: PERRLA. Extraocular muscles intact. NECK: Supple. No carotid bruits or thyromegaly. CHEST: Clear to auscultation. HEART: S1 and S2, regular. ABDOMEN: Soft. EXTREMITIES: Clubbing and cyanosis negative. LABORATORY DATA: Blood work; WBC 12.4, hemoglobin 9.7, hematocrit 30.7, platelet count 365. Chemistry shows sodium 133, potassium 3.6, chloride 94, carbon dioxide 32, anion gap of 11, BUN 30, and creatinine 1.3. IMPRESSION: A 62-year-old female with past medical history significant for terminal lung cancer, history of advanced chronic obstructive pulmonary disease on home oxygen, history of hemoptysis in the past, stage IV lung carcinoma. Last MUGA scan shows decreased left ventricular function, ejection fraction 35% dated 02/18/2018, admitted with shortness of breath. The patient had chest CT done yesterday that shows small pleural effusion. The patient underwent yesterday thoracentesis, ultrasound-guided and no significant fluid in the chest noted possibly atelectasis, so thoracentesis was not performed. The patient admitted with sinus tachycardia and shortness of breath. RECOMMENDATIONS: Continue treatment for COPD. Continue gentle diuretics. Continue metoprolol 25 mg p.o. twice a day. CVS status is stable. We will follow with you. The patient was on Coreg for low EF, but the patient was tachycardia, so Coreg was discontinued and metoprolol started, heart rate is controlled. We will increase metoprolol to 25 mg p.o. three times a day to prevent and if tolerable increase to 50 mg twice a day. We will follow with you. Thank you for providing us the opportunity in taking care of the patient, Elsa Quinn. Nikita Mathews MD
--- NOTE | 2018-07-29 12:29 | CP.PCM.PN ---
Subjective - Date & Time of Evaluation Date of Evaluation: 07/29/18 Time of Evaluation: 09:40 - Subjective Subjective: Patient for chemotherapy today and for echocardiogram, still feels weak, still with SOB. No fevers. Objective - Vital Signs/Intake and Output Vital Signs (last 24 hours): Temp Pulse Resp BP Pulse Ox 97.4 F L 115 H 79 H 120/74 95 07/28/18 06:00 07/28/18 11:08 07/28/18 06:00 07/28/18 11:08 07/28/18 06:00 Intake and Output: 07/28/18 07/28/18 06:59 18:59 Intake Total 240 Balance 240 - Medications Medications: Current Medications Azithromycin (Zithromax) 500 mg PO DAILY [facility]; Protocol Last Admin: 07/28/18 10:14 Dose: 500 mg Famotidine (Pepcid) 20 mg PO DAILY [facility] Last Admin: 07/28/18 10:14 Dose: 20 mg Guaifenesin/Codeine Phosphate (Robitussin W/Codeine) 5 ml PO TID [facility] Last Admin: 07/28/18 14:00 Dose: 5 ml Guaifenesin/Codeine Phosphate (Robitussin W/Codeine) 5 ml PO Q4H PRN PRN Reason: Cough and congestion Last Admin: 07/28/18 06:44 Dose: 5 ml Piperacillin Sod/Tazobactam Sod (Zosyn 3.375 In Ns 100ml) 100 mls @ 25 mls/hr IVPB Q8 [facility]; Protocol Stop: 08/04/18 06:01 Last Admin: 07/28/18 14:00 Dose: 25 mls/hr Linezolid (Zyvox 600mg/300ml D5w) 600 mg in 300 mls @ 200 mls/hr IVPB Q12 [facility]; Protocol Stop: 08/04/18 10:01 Last Admin: 07/28/18 10:14 Dose: 200 mls/hr Ipratropium [place] (Atrovent) 0.5 mg IH TID [facility] Last Admin: 07/28/18 13:48 Dose: 0.5 mg Levalbuterol HCl (Xopenex) 0.63 mg IH TIDRESP [facility] Last Admin: 07/28/18 13:48 Dose: 0.63 mg Methylprednisolone (Solu-Medrol) 20 mg IVP DAILY [facility] Last Admin: 07/28/18 10:13 Dose: 20 mg Metoprolol Tartrate (Lopressor) 25 mg PO BID [facility] D- Amphetamin Salt Combo 20 Mg (Home Med) 20 mg PO TID [facility] Last Admin: 07/28/18 14:00 Dose: Not Given Oxycodone HCl (Oxycodone Immediate Release Tab) 10 mg PO Q4H PRN PRN Reason: Pain, moderate (4-7) - Labs Labs: 07/28/18 08:45 07/28/18 08:45 PT 14.7 SECONDS (9.4-12.5) H 07/27/18 18:50 INR 1.32 07/27/18 18:50 APTT 35.4 Seconds (26.9-38.3) 07/27/18 18:50 - Constitutional Appears: Chronically Ill - Head Exam Head Exam: NORMAL INSPECTION - Respiratory Exam Respiratory Exam: Decreased Breath Sounds - Cardiovascular Exam Cardiovascular Exam: +S1, +S2 - GI/Abdominal Exam GI & Abdominal Exam: Soft. absent: Tenderness Assessment and Plan - Assessment and Plan (Free Text) Plan: Assessment systemic inflammatory response syndrome, consider sepsis due to left sided HCAP in this patient with lung cancer history of severe sepsis from methicillin-sensitive staph aureus bacteremia, probably port-related bacteremia, S/P port removal history of left sided HCAP history of fever and neutropenia bilateral lower extremity swelling, consider venous stasis acute on chronic renal failure S/P Sepsis due to left lower HCAP, probably post-obstructive pneumonitis in a patient with poorly-differentiated squamous cell lung CA with cavitary lesion extensive smoking history Plan continue Vancomycin, Zosyn and Zithromax day 2 pending blood, sputum cx; PCT is 0.19, follow up urine Legionella Ag patient may need to have thoracentesis will continue to monitor clinically overall prognosis is poor
[2018-07-29] MEDS: [UNRECOGNIZED DRUG - OTHER] PO SCH ×3 (12:46→18:49)
[2018-07-29] MEDS: guaiFENesin-Codeine 100-10mg/5ml Syrup (5 ml) UD PO SCH ×3 (12:46→18:50)
--- NOTE | 2018-07-29 12:57 | CP.PCM.PN ---
<Silvano Woods - Last Filed: 07/29/18 13:04> Subjective - Date & Time of Evaluation Date of Evaluation: 07/29/18 Time of Evaluation: 12:54 - Subjective Subjective: PGY-2 medicine progress note for Dr Miranda No acute events noted overnight. Patient resting comfortably in chair with NC on. Denied being in pain or distress. Discussed her wanting to fight her disease for sake of her 17 year old son. She ate 100% of her breakfast. Objective - Vital Signs/Intake and Output Vital Signs (last 24 hours): Temp Pulse Resp BP Pulse Ox 97.6 F 106 H 18 113/80 97 07/29/18 06:00 07/29/18 06:00 07/29/18 06:00 07/29/18 06:00 07/29/18 06:00 Intake and Output: 07/29/18 07/29/18 06:59 18:59 Intake Total 930 Balance 930 - Medications Medications: Current Medications Azithromycin (Zithromax) 500 mg PO DAILY [facility]; Protocol Last Admin: 07/28/18 10:14 Dose: 500 mg Famotidine (Pepcid) 20 mg PO DAILY [facility] Last Admin: 07/28/18 10:14 Dose: 20 mg Guaifenesin/Codeine Phosphate (Robitussin W/Codeine) 5 ml PO TID [facility] Last Admin: 07/29/18 12:46 Dose: Not Given Guaifenesin/Codeine Phosphate (Robitussin W/Codeine) 5 ml PO Q4H PRN PRN Reason: Cough and congestion Last Admin: 07/28/18 06:44 Dose: 5 ml Piperacillin Sod/Tazobactam Sod (Zosyn 3.375 In Ns 100ml) 100 mls @ 25 mls/hr IVPB Q8 [facility]; Protocol Stop: 08/04/18 06:01 Last Admin: 07/29/18 05:19 Dose: 25 mls/hr Linezolid (Zyvox 600mg/300ml D5w) 600 mg in 300 mls @ 200 mls/hr IVPB Q12 [facility]; Protocol Stop: 08/04/18 10:01 Last Admin: 07/28/18 22:01 Dose: 200 mls/hr Ipratropium [place] (Atrovent) 0.5 mg IH TID [facility] Last Admin: 07/29/18 08:00 Dose: 0.5 mg Levalbuterol HCl (Xopenex) 0.63 mg IH TIDRESP [facility] Last Admin: 07/29/18 07:58 Dose: 0.63 mg Methylprednisolone (Solu-Medrol) 20 mg IVP DAILY [facility] Last Admin: 07/28/18 10:13 Dose: 20 mg Metoprolol Tartrate (Lopressor) 25 mg PO TID [facility] D- Amphetamin Salt Combo 20 Mg (Home Med) 20 mg PO TID [facility] Last Admin: 07/29/18 12:46 Dose: Not Given Oxycodone HCl (Oxycodone Immediate Release Tab) 10 mg PO Q4H PRN PRN Reason: Pain, moderate (4-7) - Labs Labs: 07/29/18 05:30 07/29/18 05:30 PT 14.7 SECONDS (9.4-12.5) H 07/27/18 18:50 INR 1.32 07/27/18 18:50 APTT 35.4 Seconds (26.9-38.3) 07/27/18 18:50 - Constitutional Appears: Older Than Stated Age, Chronically Ill - Head Exam Head Exam: ATRAUMATIC, NORMAL INSPECTION - Eye Exam Eye Exam: EOMI, Normal appearance, PERRL. absent: Scleral icterus - ENT Exam ENT Exam: Mucous Membranes Moist - Neck Exam Neck Exam: Full ROM, Lymphadenopathy. absent: Tenderness - Respiratory Exam Respiratory Exam: Decreased Breath Sounds, Rhonchi. absent: Chest Wall Tenderness, Clear to Ausculation Bilateral Additional comments: decreased breath sounds on left side port on right chest - Cardiovascular Exam Cardiovascular Exam: Tachycardia, REGULAR RHYTHM, +S1, +S2, Murmur. absent: JVD - GI/Abdominal Exam GI & Abdominal Exam: Soft, Normal Bowel Sounds. 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 - also with new right lung lesion, COPD, pulm HTN, ADD who presented with hemoptysis and worsening shortness of breath: #Stage IV Squamous Cell Lung Ca Metastatic to Left Adrenal #Hemoptysis / to Lung Ca -Hemo/Onc, Dr Wood on board -receives weekly chemo (last chemo 07/18), abraxane (since 02/2018) - prior she was receiving gemzar -Radiation oncologist consulted, Dr Prabhakar * patient has agreed to receive palliative radiation to the central lung disease 07/29/18 -Meds: robitussin w/ codeine 5ml po tid and q4h prn, oxycodone 10mg po q4h for pain -CT chest w/o contrast: * Extensive left lung atelectasis with residual aerated lung in the left upper lobe. Possible prior partial left pneumonectomy. Fluid or mucous secretion/mucous plugging in the left lower lobe bronchus. Small left pleural effusion with gas bubbles raising suspicion of an infectious process. No pneumothorax. High attenuation material in left pleural fluid of uncertain significance. Centrilobular pulmonary emphysema. Chronic interstitial fibrotic change. Mediastinal lymphadenopathy. Scattered sclerotic osseous foci suspicious for blastic metastasis. Bilateral adrenal hyperplasia. #SIRS, Consider Sepsis 07/18 HCAP -ID consulted, Dr Pichardo -flu negative, procalc negative, legionella negative, blood culture negative up to date, UA negative, f/u sputum culture -on azithromycin 500mg po qd (started 07/28), linezolid 600mg ivp q12h (started 07/28), zosyn 3.375 ivpb q8h (started 07/28) #Small Left Pleural Effusion -IR consulted, Dr Laird * therapeutic thoracentesis not performed due to minimal fluid -Left Chest Ultrasound 07/28: * No significant fluid in the left chest. The x-ray and CT findings demonstrate significant volume loss and tumor in the left chest. A therapeutic thoracentesis was not performed #COPD -pulmonary consult, Dr Hector -saturating well on 3L NC -on solu-medrol 20mg ivp qd, levalbuterol 0.63mg ih tid edi, ipratropium 0.5mg ih tid edi #Tachycardia, Improved -cardio consulted, Dr Mathews -MUGA scan from 02/2018 showed EF 35% -f/u echo -started on metoprolol tartrate 25mg po bid #Attention Deficit Disorder -on home d-amphetamin salt combo 20mg po tid #PPX -pepcid 20mg po qd -heparin 5000u q12h Case discussed with Dr Miranda <Alejandro Miranda - Last Filed: 07/30/18 17:30> Objective - Vital Signs/Intake and Output Vital Signs (last 24 hours): Temp Pulse Resp BP Pulse Ox 97.6 F 122 H 18 102/67 97 07/29/18 06:00 07/29/18 14:00 07/29/18 06:00 07/29/18 13:04 07/29/18 06:00 - Labs Labs: 07/29/18 05:30 07/29/18 05:30 PT 14.7 SECONDS (9.4-12.5) H 07/27/18 18:50 INR 1.32 07/27/18 18:50 APTT 35.4 Seconds (26.9-38.3) 07/27/18 18:50 Assessment and Plan - Assessment and Plan (Free Text) Plan: see D/C summary
[2018-07-29] MEDS: MethylPREDNISolone 40 mg Vial IVP SCH (13:02)
[2018-07-29] MEDS: Linezolid 600 mg in D5W 300 ml 600 MG/300 ML BAG IVPB SCH (13:05)
[2018-07-29 13:11] VITALS: BP 102/67
[2018-07-29] MEDS ORDERED: MethylPREDNISolone 40 mg Vial IVP SCH (14:00)
--- NOTE | 2018-07-29 15:38 | CON ---
DATE: 07/29/2018 PULMONARY CONSULT NOTE REFERRING PHYSICIAN: Alejandro Miranda MD REASON FOR CONSULT: Cough, shortness of breath, left lung collapse, COPD. HISTORY OF PRESENT ILLNESS: This is a 62-year-old female with past medical history significant for COPD, pulmonary hypertension, stage IV squamous cell carcinoma, chronic anemia, acute renal failure, who presented to the emergency room complaining of fatigue, shortness of breath and hemoptysis. The patient reports that she was having respiratory symptoms. She thought she had a cold prior to coming to the emergency room with hemoptysis. Today, the patient had radiation done, reports still having cough. She still has shortness of breath, but it has improved. No hemoptysis at this time. PAST MEDICAL HISTORY: COPD, stage IV squamous cell carcinoma, pulmonary hypertension, acute renal failure, chronic anemia, ADD, and port placement. FAMILY HISTORY: No significant cardiopulmonary disease reported. SOCIAL HISTORY: Former smoker, quit 06/2017, reports she smoked for 35 years 1 pack a day. No EtOH. No illicit drug use. ALLERGIES: NO KNOWN ALLERGIES. MEDICATIONS: Zithromax 500 mg p.o. daily, Pepcid 20 mg daily, Robitussin with Codeine 5 mL every 4 hours p.r.n., Robitussin with Codeine 5 mL p.o. 3 times a day, Atrovent 0.5 mg 3 times a day inhalation, Xopenex 0.63 mg inhalation 3 times a day, Zyvox 600 mg every 12 hours, Solu-Medrol 20 mg IV push daily, metoprolol tartrate 25 mg 3 times a day, oxycodone immediate release 10 mg every 4 hours p.r.n., and Zosyn 3.375 g every 8 hours. REVIEW OF SYSTEMS: The patient reports feeling weak, has cough. Shortness of breath has improved. No headache, rhinitis, chest pain, abdominal pain, nausea, vomiting, diarrhea, leg pain or leg swelling reported. PHYSICAL EXAMINATION GENERAL: No acute distress. VITAL SIGNS: Blood pressure 113/80, pulse 104, temperature 97.6, oxygen saturation 97% on nasal cannula. HEENT: Moist mucous membrane. Crowded airway. Mallampati score of 4. NECK: Supple. No JVD. RESPIRATORY: Decreased breath sounds on the left, rhonchi. CARDIOVASCULAR: S1 and S2, tachycardic. ABDOMEN: Soft and nontender. No distention. No organomegaly. EXTREMITIES: No bilateral lower extremity edema. NEUROLOGIC: Awake, alert, verbal, follows commands. LABORATORY DATA: Reviewed. WBC 12.4, RBC 3.52, hemoglobin 9.7, hematocrit 30.7, and platelets 365. Sodium 133, potassium 3.6, chloride 94, carbon dioxide 32, anion gap 11, BUN 34, creatinine 1.3, GFR 42, random glucose 103, calcium 9.6, phosphorous 4.1, magnesium 1.8, total bilirubin 0.3, AST 45, ALT , alkaline phosphatase 129, total protein 7.1, albumin 3.5, globulin 3.5, albumin-globulin ratio 1.0, triglycerides 88, cholesterol 132, LDL cholesterol 73, HDL cholesterol 37, procalcitonin 0.19, and TSH 4.9. Urinalysis shows urine protein trace, urine blood trace. Influenza type A and B negative. Urine legionella negative. Blood cultures preliminary, no growth after 24 hours. Sputum culture pending. Chest x-ray shows dense consolidation in the left lower lobe with mediastinal shift to the left. Electrocardiogram shows sinus tachycardia. Chest CT shows extensive left lung atelectasis with residual aerated lungs in the left upper lobe, possible prior partial left pneumonectomy, fluid or mucus secretion/mucus plugging in the left lower lobe bronchus, small left pleural effusion with gas bubbles raising suspicions of an infectious process. No pneumothorax, high attenuation material and left pleural fluid of uncertain significance, centrilobular pulmonary emphysema, chronic interstitial fibrotic change, mediastinal lymphadenopathy, scattered sclerotic osseous foci suspicious for blastic metastasis, bilateral adrenal hyperplasia. Thoracentesis ultrasound shows no significant fluid in the left chest. X-ray and CT findings demonstrate significant volume loss and tumor in the left chest. Therapeutic thoracentesis was not performed. Echocardiogram report pending. 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 Procalcitonin negative, less likely bacterial pneumonia. We will need to optimize medications in this patient. We will discontinue current steroid dose and start the patient on Solu-Medrol 40 mg every 8 hours. We will start Mucomyst, Pulmicort, Singulair, and cetirizine. We will order incentive spirometer and chest physiotherapy for the patient, continue antibiotic therapy per Infectious Disease. We will followup with echocardiogram when report is available. The patient does have history of pulmonary hypertension, suspect sleep apnea. The patient will need sleep study as outpatient, sleep apnea precaution, head of bed elevated 45 degrees, gastric prophylaxis. We will placed the patient on sequential compression devices for deep venous thrombosis prophylaxis due to anemia history. The patient started radiation therapy today. This patient was seen and examined with Dr. Hector. Discussed assessment and plan as described above. This patient was seen and examined with Rhonda Reed, nurse practitioner. Discussed assessment and plan as described above. Thank you for this consult. We will follow with you. Derek Ellis APN Nikita Hector MD
[2018-07-29 19:01] VITALS: PULSE 122
--- NOTE | 2018-07-29 19:54 | CARD ---
APPROVED REPORT Date of service: 07/29/2018 EXAM: Two-dimensional and M-mode echocardiogram with Doppler and color Doppler. INDICATION SINUS TACHY /CHEMO/LUNG CA 2D DIMENSIONS Left Atrium (2D)3.6 (1.6-4.0cm)IVSd0.7 (0.7-1.1cm) LVDd4.2 (3.9-5.9cm)PWd0.8 (0.7-1.1cm) LVDs3.1 (2.5-4.0cm)FS (%) 27.9 % LVEF (%)54.4 (>50%) M-Mode DIMENSIONS Aortic Root2.90 (2.2-3.7cm)Aortic Cusp Exc.1.90 (1.5-2.0cm) Aortic Valve AoV Peak Abshskti473.0cm/Selvin Peak GR.9mmHg Mitral Valve E/A ratio0.0 TDI E/Lateral E'0.0E/Medial E'0.0 Tricuspid Valve TR Peak [id number] Peak Gr.47mmHg [id number] LEFT VENTRICLE The left ventricle is normal size. There is normal left ventricular wall thickness. The left ventricular function is normal.EF-55% There is normal LV segmental wall motion. Transmitral Doppler flow pattern is Grade III-reversible restrictive diastolic dysfunction. No left ventricle thrombus noted on this study. There is no ventricular septal defect visualized. There is no left ventricular aneurysm. There is no mass noted in the left ventricle. RIGHT VENTRICLE The right ventricle is moderately dilated. The right ventricle is mildly hypertrophied. Systolic function of RV is moderately reduced. ATRIA The left atrium size is normal. The right atrium size is normal. There is a catheter in the right atrium. The interatrial septum is intact with no evidence for an atrial septal defect. AORTIC VALVE The aortic valve is thickened but opens well. There is mild aortic regurgitation. There is no aortic valvular stenosis. There is no aortic valvular vegetation. MITRAL VALVE The mitral valve is mildly thickened. Mitral regurgitation is mild. There is no mitral valve stenosis. There is no evidence of mitral valve prolapse. TRICUSPID VALVE The tricuspid valve leaflets are thickened , but open well. There is moderate tricuspid regurgitation.RVSP-57 mmof Hg. There is no tricuspid valve stenosis. There is no tricuspid valve prolapse or vegetation. PULMONIC VALVE The pulmonary valve is normal in structure. There is mild pulmonic valvular regurgitation. There is no pulmonic valvular stenosis. GREAT VESSELS The aortic root is normal in size. The ascending aorta is normal in size. The pulmonary artery is normal. The IVC is normal in size and collapses >50% with inspiration. PERICARDIAL EFFUSION There is small left pleural effusion. There is a trace to small pericardial effusion. <Conclusion> The left ventricle is normal size. There is normal left ventricular wall thickness. The left ventricular function is normal.EF-55% The right ventricle is moderately dilated. The right atrium size is normal. There is a catheter in the right atrium. There is mild aortic regurgitation. Mitral regurgitation is mild. There is moderate tricuspid regurgitation.RVSP-57 mmof Hg. The IVC is normal in size and collapses >50% with inspiration. There is small left pleural effusion. There is a trace to small pericardial effusion. No Vegetation or thrombus noted.
[2018-07-29] MEDS ORDERED: Budesonide 0.5 mg/2 ml Inhal Susp UD IH SCH (20:00)
[2018-07-29] MEDS ORDERED: Acetylcysteine 20% Inhal Soln (4ml) IH SCH (20:00)
--- NOTE | 2018-07-30 07:31 | CP.PCM.DIS ---
<Silvano Woods R - Last Filed: 07/30/18 07:29> Provider - Provider Date of Admission: 07/27/18 19:33 Attending physician: Alejandro Miranda MD Primary care physician: Christine Wood MD Consults: 07/27/18 20:11 Consult [Physician Consult] Stat Comment: routine Consulting Provider: Nikita Mathews Consulting Physician: Nikita Mathews Reason for Consult: tachycardia Consult [Physician Consult] Stat Comment: routine Consulting Provider: Eliezer Stuart Consulting Physician: Eliezer Stuart Reason for Consult: PNA 07/27/18 20:13 Consult [Physician Consult] Routine Comment: Consulting Provider: Dez Laird Consulting Physician: Dez Laird Reason for Consult: thoracocentesis 07/27/18 23:54 Nursing Referral for Palliative Care Routine Comment: Physician Instructions: Reason For Exam: Protocol 07/28/18 17:29 Hematology Oncology Consult Routine Comment: Consulting Provider: Anamika Prabhakar Consulting Physician: Anamika Prabhakar Reason for Consult: STAGE 4 LUNG CA 07/28/18 19:33 Consult [Physician Consult] Routine Comment: Consulting Provider: Christine Wood Consulting Physician: Christine Wood Reason for Consult: lung ca 07/29/18 08:54 Pulmonology Consult Routine Comment: Consulting Provider: Nikita Hector Consulting Physician: Nikita Hector Reason for Consult: L lung collapse Time Spent in preparation of Discharge (in minutes): 30 Diagnosis - Discharge Diagnosis (1) High risk for sepsis Status: Chronic Priority: High (2) Lung cancer Status: Chronic Priority: High Hospital Course - Lab Results Lab Results: Micro Results 07/27/18 19:20 Blood Blood Culture - Preliminary NO GROWTH AFTER 48 HOURS 07/27/18 18:50 Blood Blood Culture - Preliminary NO GROWTH AFTER 48 HOURS 07/28/18 07:05 Sputum Gram Stain - Preliminary Most Recent Lab Values WBC 12.4 10^3/uL (4.5-11.0) H D 07/29/18 05:30 RBC 3.52 10^6/uL (3.5-6.1) 07/29/18 05:30 Hgb 9.7 g/dL (12.0-16.0) L 07/29/18 05:30 Hct 30.7 % (36.0-48.0) L 07/29/18 05:30 MCV 87.2 fl (80.0-105.0) 07/29/18 05:30 MCH 27.6 pg (25.0-35.0) 07/29/18 05:30 MCHC 31.6 g/dl (31.0-37.0) 07/29/18 05:30 RDW 18.7 % (11.5-14.5) H 07/29/18 05:30 Plt Count 365 10^3/uL (120.0-450.0) 07/29/18 05:30 MPV 8.3 fl (7.0-11.0) 07/29/18 05:30 Neut % (Auto) 72.3 % (50.0-68.0) H 07/29/18 05:30 Lymph % (Auto) 17.7 % (22.0-35.0) L 07/29/18 05:30 [place] % (Auto) 9.6 % (1.0-6.0) H 07/29/18 05:30 Eos % (Auto) 0.2 % (1.5-5.0) L 07/29/18 05:30 Baso % (Auto) 0.2 % (0.0-3.0) 07/29/18 05:30 Lymph # (Auto) 2.2 (1.2-3.4) 07/29/18 05:30 [place] # (Auto) 1.2 (0.1-0.6) H 07/29/18 05:30 Eos # (Auto) 0.0 (0.0-0.7) 07/29/18 05:30 Baso # (Auto) 0.02 K/mm3 (0.0-2.0) 07/29/18 05:30 Absolute Neuts (auto) 8.93 (1.4-6.5) H 07/29/18 05:30 PT 14.7 SECONDS (9.4-12.5) H 07/27/18 18:50 INR 1.32 07/27/18 18:50 APTT 35.4 Seconds (26.9-38.3) 07/27/18 18:50 pO2 39 mm/Hg (30-55) 07/27/18 19:00 VBG pH 7.42 (7.32-7.43) 07/27/18 19:00 VBG pCO2 50.0 (40-60) 07/27/18 19:00 VBG HCO3 32.4 mmol/l (21-28) H 07/27/18 19:00 VBG Total CO2 33.9 mmol.L (22-28) H 07/27/18 19:00 VBG O2 Sat (Calc) 81.7 % (40-65) H 07/27/18 19:00 VBG Base Excess 6.6 mmol/L (0.0-2.0) H 07/27/18 19:00 VBG Potassium 4.0 mmol/L (3.6-5.2) 07/27/18 19:00 Sodium 129.0 mmol/L (132-148) L 07/27/18 19:00 Chloride 93.0 mmol/L (98-107) L 07/27/18 19:00 Glucose 104 mg/dl (65-105) 07/27/18 19:00 Lactate 0.7 mmol/L (0.7-2.1) 07/27/18 19:00 FiO2 21.0 % 07/27/18 19:00 Sodium 133 mmol/L (132-148) 07/29/18 05:30 Potassium 3.6 mmol/L (3.6-5.0) 07/29/18 05:30 Chloride 94 mmol/L (98-107) L 07/29/18 05:30 Carbon Dioxide 32 mmol/L (21-33) 07/29/18 05:30 Anion Gap 11 (10-20) 07/29/18 05:30 BUN 34 mg/dL (7-21) H 07/29/18 05:30 Creatinine 1.3 mg/dl (0.7-1.2) H 07/29/18 05:30 Est GFR ( Amer) 50 07/29/18 05:30 Est GFR (Non-Af Amer) 42 07/29/18 05:30 Random Glucose 103 mg/dL (70-110) 07/29/18 05:30 Calcium 9.6 mg/dL (8.4-10.5) 07/29/18 05:30 Phosphorus 4.1 mg/dL (2.5-4.5) 07/29/18 05:30 Magnesium 1.8 mg/dL (1.7-2.2) 07/29/18 05:30 Total Bilirubin 0.3 mg/dL (0.2-1.3) 07/29/18 05:30 AST 45 U/L (14-36) H 07/29/18 05:30 ALT < 6 U/L (7-56) L 07/29/18 05:30 Alkaline Phosphatase 129 U/L (38-126) H 07/29/18 05:30 Lactate Dehydrogenase 311 U/L (333-699) L 07/27/18 18:50 Total Creatine Kinase < 20 U/L (35-230) L 07/27/18 18:50 Troponin I < 0.01 ng/mL 07/27/18 18:50 Total Protein 7.1 g/dL (5.8-8.3) 07/29/18 05:30 Albumin 3.5 g/dL (3.0-4.8) 07/29/18 05:30 Globulin 3.5 gm/dL 07/29/18 05:30 Albumin/Globulin Ratio 1.0 (1.1-1.8) L 07/29/18 05:30 Triglycerides 88 mg/dL (35-160) 07/29/18 05:30 Cholesterol 132 mg/dL (130-200) 07/29/18 05:30 LDL Cholesterol Direct 73 mg/dL (0-129) 07/29/18 05:30 HDL Cholesterol 37 mg/dL (29-60) 07/29/18 05:30 Procalcitonin 0.19 NG/ML (0.19-0.49) 07/28/18 08:45 TSH 3rd Generation 4.90 mIU/mL (0.46-4.68) H 07/29/18 05:30 Venous Blood Potassium 4.0 mmol/L (3.6-5.2) 07/27/18 19:00 Urine Color Yellow (YELLOW) 07/28/18 00:56 Urine Appearance Clear (CLEAR) 07/28/18 00:56 Urine pH 6.0 (4.7-8.0) 07/28/18 00:56 Ur Specific [place] 1.010 (1.005-1.035) 07/28/18 00:56 Urine Protein Trace mg/dL (<30 mg/dL) H 07/28/18 00:56 Urine Glucose (UA) Negative mg/dL (NEGATIVE) 07/28/18 00:56 Urine Ketones Negative mg/dL (NEGATIVE) 07/28/18 00:56 Urine Blood Trace-intact (NEGATIVE) H 07/28/18 00:56 Urine Nitrate Negative (NEGATIVE) 07/28/18 00:56 Urine Bilirubin Negative (NEGATIVE) 07/28/18 00:56 Urine Urobilinogen 0.2 E.U./dL (<1 E.U./dL) 07/28/18 00:56 Ur Leukocyte Esterase Negative Fabi/uL (NEGATIVE) 07/28/18 00:56 Urine RBC 0 - 2 /hpf (0-2) 07/28/18 00:56 Urine WBC 1 - 3 /hpf (0-6) 07/28/18 00:56 Ur Epithelial Cells 4 - 5 /hpf (0-5) 07/28/18 00:56 Urine Bacteria Few /hpf (NONE) 07/28/18 00:56 Influenza Typ A,B (EIA) Negative for flu a/b (NEGATIVE) 07/27/18 20:02 Ur L.pneumophila Ag Negative (NEGATIVE) 07/28/18 20:29 - Hospital Course Hospital Course: It was advised patient stay one additional night for further medical management however patient refused and signed out AMA on evening of 07/29/18. Please see latest progress note shown below for specifics on care that was provided: Mrs Quinn is a 62 year old female with a PMHx of stage IV squamous lung cancer metastatic to left adrenal - also with new right lung lesion, COPD, pulm HTN, ADD who presented with hemoptysis and worsening shortness of breath: #Stage IV Squamous Cell Lung Ca Metastatic to Left Adrenal #Hemoptysis / to Lung Ca -Hemo/Onc, Dr Wood on board -receives weekly chemo (last chemo 07/18), abraxane (since 02/2018) - prior she was receiving gemzar -Radiation oncologist consulted, Dr Prabhakar * patient has agreed to receive palliative radiation to the central lung disease 07/29/18 -Meds: robitussin w/ codeine 5ml po tid and q4h prn, oxycodone 10mg po q4h for pain -CT chest w/o contrast: * Extensive left lung atelectasis with residual aerated lung in the left upper lobe. Possible prior partial left pneumonectomy. Fluid or mucous secretion/mucous plugging in the left lower lobe bronchus. Small left pleural effusion with gas bubbles raising suspicion of an infectious process. No pneumothorax. High attenuation material in left pleural fluid of uncertain significance. Centrilobular pulmonary emphysema. Chronic interstitial fibrotic change. Mediastinal lymphadenopathy. Scattered sclerotic osseous foci suspicious for blastic metastasis. Bilateral adrenal hyperplasia. #SIRS, Consider Sepsis 07/18 HCAP -ID consulted, Dr Pichardo -flu negative, procalc negative, legionella negative, blood culture negative up to date, UA negative, f/u sputum culture -on azithromycin 500mg po qd (started 07/28), linezolid 600mg ivp q12h (started 07/28), zosyn 3.375 ivpb q8h (started 07/28) #Small Left Pleural Effusion -IR consulted, Dr Laird * therapeutic thoracentesis not performed due to minimal fluid -Left Chest Ultrasound 07/28: * No significant fluid in the left chest. The x-ray and CT findings demonstrate significant volume loss and tumor in the left chest. A therapeutic thoracentesis was not performed #COPD -pulmonary consult, Dr Hector -saturating well on 3L NC -on solu-medrol 20mg ivp qd, levalbuterol 0.63mg ih tid edi, ipratropium 0.5mg ih tid edi #Tachycardia, Improved -cardio consulted, Dr Mathews -MUGA scan from 02/2018 showed EF 35% -f/u echo -started on metoprolol tartrate 25mg po bid #Attention Deficit Disorder -on home d-amphetamin salt combo 20mg po tid #PPX -pepcid 20mg po qd -heparin 5000u q12h Discharge Exam - Head Exam Head Exam: ATRAUMATIC, NORMAL INSPECTION - Additional Findings Additional findings: did not get to perform physical exam as patient signed out AMA Discharge Plan - Follow Up Plan Condition: GOOD Disposition: AGAINST MEDICAL ADVICE Referrals: Christine Wood MD [Primary Care Provider] - <Alejandro Miranda - Last Filed: 07/30/18 17:30> Provider - Provider Date of Admission: 07/27/18 19:33 Attending physician: Alejandro Miranda MD Primary care physician: Christine Wood MD Consults: 07/27/18 20:11 Consult [Physician Consult] Stat Comment: routine Consulting Provider: Nikita Mathews Consulting Physician: Nikita Mathews Reason for Consult: tachycardia Consult [Physician Consult] Stat Comment: routine Consulting Provider: Eliezer Stuart Consulting Physician: Eliezer Stuart Reason for Consult: PNA 07/27/18 20:13 Consult [Physician Consult] Routine Comment: Consulting Provider: Dez Laird Consulting Physician: Dez Laird Reason for Consult: thoracocentesis 07/27/18 23:54 Nursing Referral for Palliative Care Routine Comment: Physician Instructions: Reason For Exam: Protocol 07/28/18 17:29 Hematology Oncology Consult Routine Comment: Consulting Provider: Anamika Prabhakar Consulting Physician: Anamika Prabhakar Reason for Consult: STAGE 4 LUNG CA 07/28/18 19:33 Consult [Physician Consult] Routine Comment: Consulting Provider: Christine Wood Consulting Physician: Christine Wood Reason for Consult: lung ca 07/29/18 08:54 Pulmonology Consult Routine Comment: Consulting Provider: Nikita Hector Consulting Physician: Nikita Hector Reason for Consult: L lung collapse Hospital Course - Lab Results Lab Results: Micro Results 07/28/18 07:05 Sputum Gram Stain - Final 07/28/18 07:05 Sputum Sputum Culture - Final NORMAL ORAL ALONDRA 07/27/18 19:20 Blood Blood Culture - Preliminary NO GROWTH AFTER 48 HOURS 07/27/18 18:50 Blood Blood Culture - Preliminary NO GROWTH AFTER 48 HOURS Most Recent Lab Values WBC 12.4 10^3/uL (4.5-11.0) H D 07/29/18 05:30 RBC 3.52 10^6/uL (3.5-6.1) 07/29/18 05:30 Hgb 9.7 g/dL (12.0-16.0) L 07/29/18 05:30 Hct 30.7 % (36.0-48.0) L 07/29/18 05:30 MCV 87.2 fl (80.0-105.0) 07/29/18 05:30 MCH 27.6 pg (25.0-35.0) 07/29/18 05:30 MCHC 31.6 g/dl (31.0-37.0) 07/29/18 05:30 RDW 18.7 % (11.5-14.5) H 07/29/18 05:30 Plt Count 365 10^3/uL (120.0-450.0) 07/29/18 05:30 MPV 8.3 fl (7.0-11.0) 07/29/18 05:30 Neut % (Auto) 72.3 % (50.0-68.0) H 07/29/18 05:30 Lymph % (Auto) 17.7 % (22.0-35.0) L 07/29/18 05:30 [place] % (Auto) 9.6 % (1.0-6.0) H 07/29/18 05:30 Eos % (Auto) 0.2 % (1.5-5.0) L 07/29/18 05:30 Baso % (Auto) 0.2 % (0.0-3.0) 07/29/18 05:30 Lymph # (Auto) 2.2 (1.2-3.4) 07/29/18 05:30 [place] # (Auto) 1.2 (0.1-0.6) H 07/29/18 05:30 Eos # (Auto) 0.0 (0.0-0.7) 07/29/18 05:30 Baso # (Auto) 0.02 K/mm3 (0.0-2.0) 07/29/18 05:30 Absolute Neuts (auto) 8.93 (1.4-6.5) H 07/29/18 05:30 PT 14.7 SECONDS (9.4-12.5) H 07/27/18 18:50 INR 1.32 07/27/18 18:50 APTT 35.4 Seconds (26.9-38.3) 07/27/18 18:50 pO2 39 mm/Hg (30-55) 07/27/18 19:00 VBG pH 7.42 (7.32-7.43) 07/27/18 19:00 VBG pCO2 50.0 (40-60) 07/27/18 19:00 VBG HCO3 32.4 mmol/l (21-28) H 07/27/18 19:00 VBG Total CO2 33.9 mmol.L (22-28) H 07/27/18 19:00 VBG O2 Sat (Calc) 81.7 % (40-65) H 07/27/18 19:00 VBG Base Excess 6.6 mmol/L (0.0-2.0) H 07/27/18 19:00 VBG Potassium 4.0 mmol/L (3.6-5.2) 07/27/18 19:00 Sodium 129.0 mmol/L (132-148) L 07/27/18 19:00 Chloride 93.0 mmol/L (98-107) L 07/27/18 19:00 Glucose 104 mg/dl (65-105) 07/27/18 19:00 Lactate 0.7 mmol/L (0.7-2.1) 07/27/18 19:00 FiO2 21.0 % 07/27/18 19:00 Sodium 133 mmol/L (132-148) 07/29/18 05:30 Potassium 3.6 mmol/L (3.6-5.0) 07/29/18 05:30 Chloride 94 mmol/L (98-107) L 07/29/18 05:30 Carbon Dioxide 32 mmol/L (21-33) 07/29/18 05:30 Anion Gap 11 (10-20) 07/29/18 05:30 BUN 34 mg/dL (7-21) H 07/29/18 05:30 Creatinine 1.3 mg/dl (0.7-1.2) H 07/29/18 05:30 Est GFR ( Amer) 50 07/29/18 05:30 Est GFR (Non-Af Amer) 42 07/29/18 05:30 Random Glucose 103 mg/dL (70-110) 07/29/18 05:30 Calcium 9.6 mg/dL (8.4-10.5) 07/29/18 05:30 Phosphorus 4.1 mg/dL (2.5-4.5) 07/29/18 05:30 Magnesium 1.8 mg/dL (1.7-2.2) 07/29/18 05:30 Total Bilirubin 0.3 mg/dL (0.2-1.3) 07/29/18 05:30 AST 45 U/L (14-36) H 07/29/18 05:30 ALT < 6 U/L (7-56) L 07/29/18 05:30 Alkaline Phosphatase 129 U/L (38-126) H 07/29/18 05:30 Lactate Dehydrogenase 311 U/L (333-699) L 07/27/18 18:50 Total Creatine Kinase < 20 U/L (35-230) L 07/27/18 18:50 Troponin I < 0.01 ng/mL 07/27/18 18:50 Total Protein 7.1 g/dL (5.8-8.3) 07/29/18 05:30 Albumin 3.5 g/dL (3.0-4.8) 07/29/18 05:30 Globulin 3.5 gm/dL 07/29/18 05:30 Albumin/Globulin Ratio 1.0 (1.1-1.8) L 07/29/18 05:30 Triglycerides 88 mg/dL (35-160) 07/29/18 05:30 Cholesterol 132 mg/dL (130-200) 07/29/18 05:30 LDL Cholesterol Direct 73 mg/dL (0-129) 07/29/18 05:30 HDL Cholesterol 37 mg/dL (29-60) 07/29/18 05:30 Procalcitonin 0.19 NG/ML (0.19-0.49) 07/28/18 08:45 TSH 3rd Generation 4.90 mIU/mL (0.46-4.68) H 07/29/18 05:30 Venous Blood Potassium 4.0 mmol/L (3.6-5.2) 07/27/18 19:00 Urine Color Yellow (YELLOW) 07/28/18 00:56 Urine Appearance Clear (CLEAR) 07/28/18 00:56 Urine pH 6.0 (4.7-8.0) 07/28/18 00:56 Ur Specific [place] 1.010 (1.005-1.035) 07/28/18 00:56 Urine Protein Trace mg/dL (<30 mg/dL) H 07/28/18 00:56 Urine Glucose (UA) Negative mg/dL (NEGATIVE) 07/28/18 00:56 Urine Ketones Negative mg/dL (NEGATIVE) 07/28/18 00:56 Urine Blood Trace-intact (NEGATIVE) H 07/28/18 00:56 Urine Nitrate Negative (NEGATIVE) 07/28/18 00:56 Urine Bilirubin Negative (NEGATIVE) 07/28/18 00:56 Urine Urobilinogen 0.2 E.U./dL (<1 E.U./dL) 07/28/18 00:56 Ur Leukocyte Esterase Negative Fabi/uL (NEGATIVE) 07/28/18 00:56 Urine RBC 0 - 2 /hpf (0-2) 07/28/18 00:56 Urine WBC 1 - 3 /hpf (0-6) 07/28/18 00:56 Ur Epithelial Cells 4 - 5 /hpf (0-5) 07/28/18 00:56 Urine Bacteria Few /hpf (NONE) 07/28/18 00:56 Influenza Typ A,B (EIA) Negative for flu a/b (NEGATIVE) 07/27/18 20:02 Ur L.pneumophila Ag Negative (NEGATIVE) 07/28/18 20:29 - Hospital Course Hospital Course: Patient was seen and examined by me. This is a late entry. I have reviewed the note of the manager of medical and have gone over the plan of care. I agree with the note. I have reviewed the medications and the last labs. Pt with Sq Cell Ca of the lung with mets. She is being followed by Dr Wood from Oncology. She has a small L pleural effusion and was too small to be tapped. She wishes to see a different pulmonalogist for her Lung Ca and COPD. I asked Dr Hector to evaluate the pt. Pt was seen by Dr Prabhakar and she had RT started. The pt has a young son at home and stated that she needs to go and left AMA. I did advise her to stay but she did not want to. Pt has ADHA and is on Adderal. She is also on pain medications due to her Lung Ca and chronic back pain. Eating well. Pain is controlled.
== END 2018-07-29 20:02 | disposition left against medical advice (07) | DRG 190 ==
LOC: ED 17:58 → ERH 19:33 → 2RNO 22:55
PROVIDERS: ADMIT Internal Medicine Medical Oncology; ATTEND Internal Medicine Nephrology
PROC: BB4BZZZ Ultrasonography of Pleura (ICD-10-PCS; principal; 2018-07-28)
DX: J44.0 Chronic obstructive pulmonary disease with (acute) lower respiratory infection (principal); J18.9 Pneumonia, unspecified organism; C34.92 Malignant neoplasm of unspecified part of left bronchus or lung; C79.72 Secondary malignant neoplasm of left adrenal gland; J90 Pleural effusion, not elsewhere classified; J98.11 Atelectasis; R65.10 Systemic inflammatory response syndrome (SIRS) of non-infectious origin without acute organ dysfunction; D64.9 Anemia, unspecified; F98.8 Other specified behavioral and emotional disorders with onset usually occurring in childhood and adolescence; I27.20 Pulmonary hypertension, unspecified; N18.9 Chronic kidney disease, unspecified; Z79.899 Other long term (current) drug therapy; Z87.891 Personal history of nicotine dependence; Z99.81 Dependence on supplemental oxygen; Y95 Nosocomial condition; R00.0 Tachycardia, unspecified; Z86.19 Personal history of other infectious and parasitic diseases; Z53.8 Procedure and treatment not carried out for other reasons

== ENCOUNTER 2018-08-10 13:34 | Inpatient (IN) | payer OTHER ==
[2018-08-10 13:50] VITALS: BMI 20.9
[2018-08-10] MEDS: Albuterol-Ipratrop 3 mg / 0.5 (3 ml) UD IH SCH ×3 (14:03→14:35)
[2018-08-10] MEDS ORDERED: Morphine 4 mg/ml ISec IVP STA (14:07)
--- NOTE | 2018-08-10 14:16 | ED PDOC ---
Arrival/HPI - General Chief Complaint: Shortness Of Breath Time Seen by Provider: 08/10/18 13:35 Historian: Patient - History of Present Illness Narrative History of Present Illness (Text): 08/10/18 13:45 62 year old female, whose past medical history includes COPD, and lung cancer (currently on chemo), who was sent to the Emergency department by her radiology oncologist for evaluation of sob. Patient reports worsening shortness of breath, different from baseline. Patient notes chronic cough. Patient notes diffuse pain. Patient reportedly seen in hospital, signed AMA. Patient denies any fever, chills, chest pain, nausea, vomiting, diarrhea, abdominal pain, urinary symptoms, back pain, neck pain, headache, dizziness, or any other complaints. PMD: Christine Lee Time/Duration: Prior to Arrival Symptom Onset: Sudden Symptom Course: Unchanged Activities at Onset: Light Past Medical History - Provider Review Nursing Documentation Reviewed: Yes - Past History Past History: No Previous - Infectious Disease Hx of Infectious Diseases: None - Past Medical History Past Medical History: No Previous - Cardiac Hx Cardiac Disorders: No - Pulmonary Hx Respiratory Disorders: Yes Hx Lung Cancer: Yes (on chemo) - Neurological Hx Neurological Disorder: No - HEENT Hx HEENT Disorder: No - Renal Hx Renal Disorder: Yes Hx Renal Failure: Yes - Endocrine/Metabolic Hx Endocrine Disorders: No - Hematological/Oncological Hx Blood Disorders: Yes Hx Blood Transfusions: Yes - Integumentary Hx Dermatological Disorder: No - Musculoskeletal/Rheumatological Hx Musculoskeletal Disorders: No - Gastrointestinal Hx Gastrointestinal Disorders: No - Genitourinary/Gynecological Hx Genitourinary Disorders: No - Psychiatric Hx Psychophysiologic Disorder: No Hx Substance Use: No - Surgical History Other/Comment: R chest port - Anesthesia Hx Anesthesia: Yes Hx Anesthesia Reactions: No Hx Malignant Hyperthermia: No - Suicidal Assessment Feels Threatened In Home Enviroment: No Family/Social History - Physician Review Nursing Documentation Reviewed: Yes Family/Social History: No Known Family HX Smoking Status: Former Smoker Hx Alcohol Use: No Hx Substance Use: No Hx Substance Use Treatment: No Allergies/Home Meds Allergies/Adverse Reactions: Allergies No Known Allergies Allergy (Verified 08/10/18 13:50) Home Medications: Home Meds Medication Instructions Recorded Confirmed Carvedilol [Coreg] 3.125 mg PO BID 07/27/18 08/10/18 Codeine Phosphate/Guaifenesin 118 ml PO PRN PRN 07/27/18 08/10/18 [Virtussin AC Liquid] D- Amphetamin Salt Combo 20 mg PO DAILY 07/27/18 08/10/18 Furosemide [Lasix] 40 mg PO PRN 07/27/18 08/10/18 Magnesium Carbonate 1 tab PO DAILY 07/27/18 08/10/18 Potassium Chloride [K-Tab ER] 10 meq PO DAILY 07/27/18 08/10/18 oxyCODONE [oxycodone Hydrochloride] 10 mg PO PRN PRN 07/27/18 08/10/18 Review of Systems - Physician Review All systems were reviewed & negative as marked: Yes - Review of Systems Constitutional: Normal. absent: Fevers, Night Sweats Respiratory: SOB (Patient notes worsening shortness of breath, different from baseline), Cough (Patient notes chronic cough). absent: Normal Cardiovascular: Normal. absent: Chest Pain Gastrointestinal: Normal. absent: Abdominal Pain, Diarrhea, Nausea, Vomiting Genitourinary Female: Normal. absent: Urine Output Changes Musculoskeletal: Normal. absent: Back Pain, Neck Pain Neurological: Normal. absent: Headache, Dizziness Physical Exam Vital Signs Reviewed: Yes Vital Signs Temp Pulse Resp BP Pulse Ox 08/10/18 13:52 98.2 F 112 H 20 111/77 100 Temperature: Afebrile Blood Pressure: Normal Pulse: Tachycardic Respiratory Rate: Normal Appearance: Positive for: Non-Toxic, Cachectic (Patient is chronically cachectic) Pain Distress: Mild Mental Status: Positive for: Alert and Oriented X 3 - Systems Exam Head: Present: Atraumatic, Normocephalic Pupils: Present: PERRL Extroacular Muscles: Present: EOMI Conjunctiva: Present: Normal Mouth: Present: Moist Mucous Membranes Neck: Present: Normal Range of Motion Respiratory/Chest: Present: Decreased Breath Sounds (Diminished breath sounds bilaterally ) Cardiovascular: Present: Regular Rate and Rhythm, Normal S1, S2. No: Murmurs Abdomen: Present: Tenderness (nonfocal abdominal tenderness) Back: Present: Normal Inspection Upper Extremity: Present: Normal Inspection. No: Cyanosis, Edema Lower Extremity: Present: Normal Inspection. No: Edema Neurological: Present: GCS=15, CN II-XII Intact, Speech Normal Skin: Present: Warm, Dry, Normal Color. No: Rashes Psychiatric: Present: Alert, Oriented x 3, Normal Insight, Normal Concentration Medical Decision Making ED Course and Treatment: 08/10/18 13:45 Impression: 62 year old female who was sent to the Emergency department by her radiology oncologist for evaluation of shortness of breath. Differential Diagnosis included but are not limited to: copd pna pleural effusion pe Plan: -- EKG -- Labs -- X-Ray of chest -- CT of chest -- Duoneb -- Morphine -- SOLU-Medrol -- Urinalysis -- Reassess and disposition Prior Visits: Notes and results from previous visits were reviewed. Patient presented on 07/27/18 with complaints of cough, shortness of breath, and hemoptysis for the last few days. Patient was hospitalized in good condition. Progress Notes: 08/12/18 00:55 case discussed with pmd accepts. nebs steriods given persistent dyspnea. - RAD Interpretation Radiology Orders: 08/10/18 13:54 CHEST PORTABLE [RAD] Stat - EKG Interpretation EKG Interpretation (Text): 08/10/18 EKG: Ordered, reviewed, and independently interpreted the EKG. Rate : 115 BPM Rhythm : Sinus Tachycardia Interpretation : No ST-T wave changes. Interpreted by ED Physician: Yes Type: 12 lead EKG - Medication Orders Current Medication Orders: Albuterol/Ipratropium (Duoneb 3 Mg/0.5 Mg (3 Ml) Ud) 3 ml IH Q15M LUZ MARINA Stop: 08/10/18 14:31 Last Admin: 08/10/18 14:03 Dose: 3 ml Discontinued Medications Methylprednisolone (Solu-Medrol) 125 mg IVP STAT STA Stop: 08/10/18 13:56 Last Admin: 08/10/18 14:03 Dose: 125 mg IVP Administration Document 08/10/18 14:03 OCS (Rec: 08/10/18 14:03 OCS [id number]) Charges for Administration # of IVP Administrations 1 Morphine Sulfate (Morphine) 4 mg IVP STAT STA Stop: 08/10/18 14:08 - Scribe Statement The provider has reviewed the documentation as recorded by the Scribe Zoraida Lees All medical record entries made by the Scribe were at my direction and personally dictated by me. I have reviewed the chart and agree that the record accurately reflects my personal performance of the history, physical exam, medical decision making, and the department course for this patient. I have also personally directed, reviewed, and agree with the discharge instructions and disposition. Disposition/Present on Arrival - Present on Arrival Any Indicators Present on Arrival: No History of DVT/PE: No History of Uncontrolled Diabetes: No Urinary Catheter: No History of Decub. Ulcer: No History Surgical Site Infection Following: None - Disposition Have Diagnosis and Disposition been Completed?: Yes Diagnosis: COPD (chronic obstructive pulmonary disease), Pneumonia Disposition: HOSPITALIZED Disposition Time: 21:00 Condition: GUARDED
[2018-08-10 14:46] LABS: BASO # 0.02 K/mm3 (0.0-2.0); BASO % 0.2 % (0.0-3.0); EOS % 0.3 % (1.5-5.0); HEMOGLOBIN 13.5 g/dL (12.0-16.0); LYMPH # 0.6 (1.2-3.4); LYMPH % 4.7 % (22.0-35.0); MEAN CELL VOLUME 89.7 fl (80.0-105.0); MEAN CORPUSCULAR HEMOGLOBIN 28.4 pg (25.0-35.0); MEAN CORPUSCULAR HGB CONC 31.6 g/dl (31.0-37.0); MEAN PLATELET VOLUME 8.5 fl (7.0-11.0); MONO # 1.1 (0.1-0.6); MONO % 8.6 % (1.0-6.0); PLATELET COUNT 218 10^3/uL (120.0-450.0); RBC 4.76 10^6/uL (3.5-6.1); RED CELL DISTRIBUTION WIDTH 18.5 % (11.5-14.5); WHITE BLOOD COUNT 13.2 10^3/uL (4.5-11.0)
[2018-08-10 14:55] LABS: INR 1.29; PARTIAL THROMBOPLASTIN TIME 33.6 Seconds (26.9-38.3); PROTHROMBIN TIME 14.3 SECONDS (9.4-12.5)
[2018-08-10 14:58] LABS: ALB/GLOB RATIO 0.9 (1.1-1.8); ALBUMIN 3.6 g/dL (3.0-4.8); ALT/SGPT < 6 U/L (7-56); AST/SGOT 18 U/L (14-36); BLOOD UREA NITROGEN 17 mg/dL (7-21); CALCIUM 10.1 mg/dL (8.4-10.5); GFR NON-AFRICAN AMERICAN 46; LIPASE 37 U/L (23-300)
[2018-08-10 15:07] LABS: TROPONIN I < 0.01 ng/mL
[2018-08-10 15:09] LABS: LYMPHOCYTE 4 % (22.0-35.0); MONOCYTE 8 % (1.0-6.0); NEUTROPHIL 88 % (50.0-70.0)
[2018-08-10] MEDS ORDERED: Oxycodone/Acetaminophen 5/325 mg Tab PO STA (15:25)
[2018-08-10] MEDS ORDERED: oxyCODONE 10 mg Immediate Release Tab PO STA (15:53)
[2018-08-10 16:18] LABS: PH,URINE 6.5 (4.7-8.0); URINE BILIRUBIN NEGATIVE (NEGATIVE); URINE BLOOD TRACE-INTACT (NEGATIVE); URINE GLUCOSE (UA) NEGATIVE (NEGATIVE); URINE LEUKOCYTE ESTERASE NEGATIVE Leu/uL (NEGATIVE); URINE PROTEIN 100 mg/dL (<30 mg/dL)
[2018-08-10 16:28] LABS: URINE APPEARANCE CLEAR (CLEAR); URINE COLOR YELLOW (YELLOW)
--- NOTE | 2018-08-10 16:49 | CT ---
Date of service: 08/10/2018 PROCEDURE: CT Chest with contrast (Pulmonary Angiogram) HISTORY: Shortness of breath. History of metastatic lung disease. COMPARISON: Comparison made with prior CT chest 07/27/2017. TECHNIQUE: Axial computed tomography images were obtained of the chest in the pulmonary arterial phase of enhancement. Coronal and sagittal reformatted images were created and reviewed. Intravenous contrast dose: 147 cc Omnipaque 350 Radiation dose: Total exam DLP = 154.06 mGy-cm. This CT exam was performed using one or more of the following dose reduction techniques: Automated exposure control, adjustment of the mA and/or kV according to patient size, and/or use of iterative reconstruction technique. FINDINGS: PULMONARY ARTERIES: The visualized pulmonary trunk, right and left main and lobar branches of the pulmonary arteries are patent however the segmental branches of the left lower lobe pulmonary artery are significantly compressed/attenuated by dense consolidation changes/atelectasis in the left lower lobe. Questionable partial lower lobectomy not excluded. Clinical correlation with surgical questionable fluid in the history. Questionable fluid and/or plugging in the distal aspect left lower lobe bronchus. Note that underlying residual tumor cannot be excluded based on this exam. There is a small left-sided effusion.. There also rind like pleural thickening floor of the left lower lung field and to a lesser degree left upper lung field. Pulmonary trunk measures approximately 3.3 cm. AORTA: No acute findings. No thoracic aortic aneurysm. Ascending thoracic aorta measures approximately 3.3 cm and descending thoracic aorta measures approximately 2.4 cm. Minor aortic atherosclerotic calcification or mural plaque present. Dense consolidation LUNGS: Dense consolidation changes/atelectasis in the left lower lobe. Questionable partial lower lobectomy not excluded. Clinical correlation with surgical questionable fluid in the history. Questionable fluid and/or plugging in the distal aspect left lower lobe bronchus. Note that underlying residual tumor cannot be excluded based on this exam. There is a small left-sided effusion.. There also rind like pleural thickening floor of the left lower lung field and to a lesser degree left upper lung field. Significant centrilobular and and panlobular emphysematous changes upper lobe predominance right greater than left. There are also paraseptal emphysematous changes. Most notably affecting the right lung. PLEURAL SPACES: As above. HEART: Unremarkable. No cardiomegaly. No significant pericardial effusion. LYMPH NODES: Multiple mediastinal lymph nodes are again noted several of which are pathologically enlarged likely represent metastatic lymphadenopathy BONES, CHEST WALL: Mild multilevel degenerative spondylosis of the thoracic spine. Redemonstrated are sclerotic densities seen in the T5 segment probably representing sclerotic metastases. Smaller sclerotic lesions are also seen scattered throughout the thoracic spine also felt to represent metastatic disease. Few additional small sclerotic foci seen scattered throughout the thoracic spine. There are also scattered sclerotic lesions throughout the ribs bilaterally also felt to represent metastatic deposits. OTHER FINDINGS: There are bilateral adrenal gland enlargement possibly representing metastatic deposits as well. IMPRESSION: The visualized pulmonary trunk, right and left main and lobar branches of the pulmonary arteries are patent however the segmental branches of the left lower lobe pulmonary artery are significantly compressed/attenuated by dense consolidation changes/atelectasis in the left lower lobe. Dense consolidation changes/atelectasis in the left lower lobe. Questionable partial lower lobectomy not excluded. Clinical correlation with surgical questionable fluid in the history. Questionable fluid and/or plugging in the distal aspect left lower lobe bronchus. Note that underlying residual tumor cannot be excluded based on this exam. There is a small left-sided effusion.. There also rind like pleural thickening floor of the left lower lung field and to a lesser degree left upper lung field. Significant centrilobular and panlobular emphysematous changes upper lobe predominance right greater than left. There are also paraseptal emphysematous changes. Most notably affecting the right lung. Presumed metastatic mediastinal lymphadenopathy Scattered sclerotic metastasis throughout multiple ribs as well as the thoracic spine.. Bilateral adrenal masses possibly representing metastatic deposits.
--- NOTE | 2018-08-10 16:56 | RAD ---
Date of service: 08/10/2018 HISTORY: sob COMPARISON: Comparison made with CTA chest 08/10/2018 FINDINGS: LUNGS: Extensive centrilobular, panlobular and paraseptal emphysematous changes upper lobe predominance right greater than left.. Dense consolidation changes in the left lower lobe consistent with atelectasis with small left-sided effusion. Small 9 mm nodule right upper lobe not well delineated. Note that all these changes seen to much better advantage on CTA chest.. PLEURA: As above. No apparent pneumothorax CARDIOVASCULAR: Minor aortic atherosclerotic calcification present. Heart size within range of normal no pulmonary vascular congestion. OSSEOUS STRUCTURES: Scattered metastatic lesions throughout the ribs and a few thoracic segments to not well delineated compared to high-resolution CT scan VISUALIZED UPPER ABDOMEN: Normal. OTHER FINDINGS: None. IMPRESSION: Extensive centrilobular, panlobular and paraseptal emphysematous changes upper lobe predominance right greater than left.. Dense consolidation changes in the left lower lobe consistent with atelectasis with small left-sided effusion. Small 9 mm nodule right upper lobe not well delineated. Note that all these changes seen to much better advantage on CTA chest..
--- NOTE | 2018-08-10 17:18 | CARD ---
APPROVED REPORT Date of service: 08/10/2018 EKG Measurement Heart [id number] <Conclusion> Sinus tachycardia Otherwise normal ECG
--- NOTE | 2018-08-10 18:01 | CT ---
Date of service: 08/10/2018 PROCEDURE: CT Abdomen and pelvis. HISTORY: Abdominal pain in a patient with a history of lung carcinoma. COMPARISON: Correlation made with concurrent CT scan of the chest.. Comparison also made with CT scan abdomen pelvis 02/18/2018. TECHNIQUE: Contiguous axial images of the abdomen and pelvis. Oral contrast was administered. No IV contrast given. Coronal and Sagittal reformats generated. Radiation dose: Total exam DLP = 192.53 mGy-cm. This CT exam was performed using one or more of the following dose reduction techniques: Automated exposure control, adjustment of the mA and/or kV according to patient size, and/or use of iterative reconstruction technique. FINDINGS: LOWER THORAX: Left lower lobe consolidation described in greater detail on concurrent CT scan chest. Please refer that study and corresponding report for additional details. Cardiomegaly. LIVER: Liver exhibits normal size.. There appears to be some mild fatty hepatic infiltration. No obvious hepatic masses or collections. Portal and splenic veins are opacified.. GALLBLADDER AND BILE DUCTS: The gallbladder is moderately distended. No obvious intraluminal gallbladder calculi. Questionable small amount of pericholecystic fluid. PANCREAS: Pancreas appears atrophic and fatty replaced. There are no pancreatic masses collections or calcifications. SPLEEN: Spleen is borderline/mildly enlarged measuring nearly 13 cm in CC dimension. No obvious splenic masses or collections. Small splenule seen along the inferior border of the main body of the spleen ADRENALS: Bilateral adrenal masses; rule out metastatic disease. KIDNEYS AND URETERS: Kidneys demonstrate relatively symmetric nephrograms. No evidence of nephrolithiasis or hydronephrosis. There are of lobular surface contours of the kidneys possibly related to chronic scarring. Additionally there also appear to be 1 or 2 low-attenuation foci along the cortical surfaces of the medial lower and lateral midpole left kidney the former of which is consistent with a small cyst the latter could represent small cortical surface cyst or scar. Renal ultrasound follow-up confirm. BLADDER: Urinary bladder is incompletely distended which in part accounts for thick-walled appearance however correlation with urinalysis recommended to exclude cystitis REPRODUCTIVE: Uterus appears grossly unremarkable. APPENDIX: Appendix is not seen with any certainty on this study. BOWEL: Evaluation of the bowel is limited due to the lack of oral contrast material. Stomach is incompletely distended with slight thick-walled appearance. The visualized loops of small bowel exhibit normal contour and caliber although some are fluid-filled.. No evidence of acute mechanical small bowel obstruction. There is a large amount of stool seen within the cecum ascending and hepatic flexure region consistent with fecal retention/constipation. No definitive mural wall thickening. There may be a few scattered colonic diverticula along the sigmoid colon. PERITONEUM: Unremarkable. No fluid collection. No free air. LYMPH NODES: Unremarkable. No enlarged lymph nodes. VASCULATURE: Unremarkable. No aortic aneurysm. Minimal aortic atherosclerotic calcification or mural plaque present. BONES: There are a few tiny sclerotic foci scattered throughout the lumbar spine pelvis and sacrum. Rule out metastatic disease. There is mild levoscoliosis centered in the upper lumbar region possibly compensatory for a dextroscoliosis in the lower thoracic region. OTHER FINDINGS: None. IMPRESSION: Bilateral adrenal masses; rule out metastatic disease. Left lower lobe consolidation. Please refer to concurrent CT scan of the chest and corresponding report for additional details and findings. Borderline splenomegaly. Findings consistent with constipation. There is a least 1 left renal cyst felt be present. Scarring or another cyst along the lateral cortex mid pole left kidney. Consider follow-up ultrasound to confirm. Urinary bladder incompletely distended with slight thick-walled appearance likely due to incomplete distention however correlation with urinalysis recommended. Few tiny sclerotic foci seen scattered throughout the lumbar spine and pelvis-sacrum; rule out metastatic disease.
[2018-08-10] MEDS ORDERED: Vancomycin 1gm in NS 250ml 1 GM/250 ML BAG IVPB STA (18:03)
[2018-08-10] MEDS ORDERED: Piperacillin/Tazobact 3.375 gm 100 ML IVPB STA (18:03)
--- NOTE | 2018-08-11 00:55 | CP.PCM.PN ---
Subjective - Date & Time of Evaluation Date of Evaluation: 08/11/18 Time of Evaluation: 00:55 - Subjective Subjective: Patient was seen . She asked for sleeping pill. Has no other complaits. Monitor sinus tach. Chart reviewed. D-Dimer was ordered with morning labs. This 62 year old woman was admitted with sob. Has PMH of NSCLC stage IV.,COPD, Persistent left pleural effusion, Left adrenal mass, ADHD,former smoker. Objective - Vital Signs/Intake and Output Vital Signs (last 24 hours): Temp Pulse Resp BP Pulse Ox 98.2 F 110 H 20 118/79 94 L 08/10/18 13:52 08/10/18 20:40 08/10/18 22:37 08/10/18 20:40 08/10/18 20:40 - Medications Medications: Current Medications Albuterol/Ipratropium (Duoneb 3 Mg/0.5 Mg (3 Ml) Ud) 3 ml IH TIDRESP LUZ MARINA Carvedilol (Coreg) 3.125 mg PO BID LUZ MARINA Furosemide (Lasix) 40 mg PO DAILY LUZ MARINA Oxycodone HCl (Oxycodone Immediate Release Tab) 10 mg PO Q6 PRN PRN Reason: Pain, moderate (4-7) - Labs Labs: 08/10/18 14:36 08/10/18 14:36 PT 14.3 SECONDS (9.4-12.5) H 08/10/18 14:36 INR 1.29 08/10/18 14:36 APTT 33.6 Seconds (26.9-38.3) 08/10/18 14:36 - Constitutional Appears: Well, No Acute Distress - Head Exam Head Exam: ATRAUMATIC, NORMAL INSPECTION, NORMOCEPHALIC - Eye Exam Eye Exam: Normal appearance - ENT Exam ENT Exam: Normal External Ear Exam - Neck Exam Neck Exam: Normal Inspection - Respiratory Exam Respiratory Exam: NORMAL BREATHING PATTERN - Cardiovascular Exam Cardiovascular Exam: absent: JVD - Rectal Exam Rectal Exam: Deferred - Exam Additional comments: Deferred. - Extremities Exam Extremities Exam: Normal Inspection - Back Exam Back Exam: NORMAL INSPECTION - Neurological Exam Neurological Exam: Alert, Awake - Psychiatric Exam Psychiatric exam: Normal Affect, Normal Mood - Skin Skin Exam: Normal Color Assessment and Plan - Assessment and Plan (Free Text) Assessment: Insomnia. Sinus tachycardia. Stage IV NSCLC. COPD. Left pleural effusion. Left adrenal mass. Plan: Ambien 5 mg PO x 1.
--- NOTE | 2018-08-11 06:57 | CP.PCM.HP ---
<LiaJenelle - Last Filed: 08/11/18 11:18> History of Present Illness - History of Present Illness History of Present Illness: Jenelle Fitzgerald, PGY2, H&P for Dr Miranda: CC: shortness of breath This is a 62 year old female, with PMH COPD, stage IV NSCLC (currently on chemo and radiation) with radiation to left adrenal gland, was sent to the emergency room by her radiation oncologist for shortness of breath. Patient was getting her radiation treatment when she felt increasing shortness of breath and worsening fatigue. Denies fevers, chills, nausea, vomiting, dizziness, syncope, cough, abdominal pain, diarrhea, urinary symptoms, leg swelling. In ED, patient was afebrile with HR 112, other vitals stable. CT angio negative for PE, but showed extensive metastatic disease in lungs, new right adrenal lesion (possible new mets). Patient received Vanco, Zosyn, solumedrol 125 mg IV, and oxycodone in ED. 12 point ROS obtained and negative, except as per HPI. Past medical history: Non-small cell Lung Ca stage IV (on chemo), COPD, L persistent pleural effusion, L adrenal mass, post obstructive pneumonitis, ADHD Past surgical history: Breast reduction (1999), Inguinal hernia repair (2011) Home meds: Reviewed as per MAR Allergies: NKDA Social history: Former heavy smoker, denies EtOH or drug use. Lives with teenage son Family history: Sister- from Leukemia age 32, Dad-HTN/DM, Mom- HTN PMD: Dr. Miranda Oncologist: Dr. Wood Radiation Oncologist Dr Prabhakar Present on Admission - Present on Admission Any Indicators Present on Admission: No History of DVT/PE: No History of Uncontrolled Diabetes: No Urinary Catheter: No Decubitus Ulcer Present: No Review of Systems - Review of Systems All systems: reviewed and no additional remarkable complaints except Review of Systems: as per HPI Past Patient History - Infectious Disease Hx of Infectious Diseases: None - Past Social History Smoking Status: Former Smoker - CARDIAC Hx Cardiac Disorders: No - PULMONARY Hx Respiratory Disorders: Yes Hx Chronic Obstructive Pulmonary Disease (COPD): Yes Hx Emphysema: Yes - NEUROLOGICAL Hx Neurological Disorder: No Hx Alzheimer's Disease: No - HEENT Hx HEENT Problems: No - RENAL Hx Chronic Kidney Disease: Yes Hx Renal Failure: Yes - ENDOCRINE/METABOLIC Hx Endocrine Disorders: No - HEMATOLOGICAL/ONCOLOGICAL Hx Blood Disorders: Yes Hx Anemia: Yes - INTEGUMENTARY Hx Dermatological Problems: No - MUSCULOSKELETAL/RHEUMATOLOGICAL Hx Musculoskeletal Disorders: Yes Hx Back Pain: Yes Hx Falls: No - GASTROINTESTINAL Hx Gastrointestinal Disorders: No - GENITOURINARY/GYNECOLOGICAL Hx Genitourinary Disorders: No - PSYCHIATRIC Hx Psychophysiologic Disorder: No - SURGICAL HISTORY Hx Surgeries: Yes - ANESTHESIA Hx Anesthesia: Yes Hx Anesthesia Reactions: No Hx Malignant Hyperthermia: No Meds Allergies/Adverse Reactions: Allergies Allergy/AdvReac Type Severity Reaction Status Date / Time No Known Allergies Allergy Verified 08/10/18 13:50 Physical Exam - Constitutional Appears: Non-toxic, No Acute Distress - Head Exam Head Exam: ATRAUMATIC, NORMOCEPHALIC - Eye Exam Eye Exam: EOMI, PERRL. absent: Conjunctival injection, Nystagmus, Scleral icterus Pupil Exam: NORMAL ACCOMODATION, PERRL. absent: Irregular, Miosis, Mydriatic - ENT Exam ENT Exam: Mucous Membranes Moist - Neck Exam Neck exam: Positive for: Full Rom - Respiratory Exam Respiratory Exam: Wheezes. absent: Chest Wall Tenderness, Rales, Respiratory Distress, Stridor - Cardiovascular Exam Cardiovascular Exam: RRR, +S1, +S2. absent: Systolic Murmur - GI/Abdominal Exam GI & Abdominal Exam: Normal Bowel Sounds, Soft. absent: Distended, Firm, Mass, Rebound, Rigid - Extremities Exam Extremities exam: Positive for: normal inspection. Negative for: calf tenderness, pedal edema - Back Exam Back exam: NORMAL INSPECTION - Neurological Exam Neurological exam: Alert, Oriented x3 - Psychiatric Exam Psychiatric exam: Normal Affect, Normal Mood - Skin Skin Exam: Dry, Normal Color, Warm Results - Vital Signs Recent Vital Signs: Last Vital Signs Temp 97.7 F 08/11/18 00:01 Pulse 120 H 08/11/18 02:00 Resp 20 08/11/18 00:01 BP 103/73 08/11/18 00:01 Pulse Ox 94 L 08/10/18 20:40 - Labs Result Diagrams: 08/11/18 07:14 08/11/18 07:14 Labs: Laboratory Results - last 24 hr 08/10/18 08/10/18 08/10/18 14:36 14:36 14:36 WBC 13.2 H RBC 4.76 Hgb 13.5 D Hct 42.7 MCV 89.7 MCH 28.4 MCHC 31.6 RDW 18.5 H Plt Count 218 MPV 8.5 Neut % (Auto) 86.2 H Lymph % (Auto) 4.7 L [place] % (Auto) 8.6 H Eos % (Auto) 0.3 L Baso % (Auto) 0.2 Lymph # (Auto) 0.6 L [place] # (Auto) 1.1 H Eos # (Auto) 0.0 Baso # (Auto) 0.02 Absolute Neuts (auto) 11.37 H Neutrophils % (Manual) 88 H Lymphocytes % (Manual) 4 L Monocytes % (Manual) 8 H PT 14.3 H INR 1.29 APTT 33.6 D-Dimer, Quantitative Sodium 132 Potassium 3.8 Chloride 88 L Carbon Dioxide 37 H Anion Gap 11 BUN 17 Creatinine 1.2 Est GFR ( Amer) 55 Est GFR (Non-Af Amer) 46 Random Glucose 113 H Calcium 10.1 Magnesium 1.7 Total Bilirubin 0.6 AST 18 ALT < 6 L Alkaline Phosphatase 102 Lactate Dehydrogenase 283 L Total Creatine Kinase < 20 L Troponin I < 0.01 Total Protein 7.3 Albumin 3.6 Globulin 3.8 Albumin/Globulin Ratio 0.9 L Lipase 37 Urine Color Urine Appearance Urine pH Ur Specific [place] Urine Protein Urine Glucose (UA) Urine Ketones Urine Blood Urine Nitrate Urine Bilirubin Urine Urobilinogen Ur Leukocyte Esterase Urine RBC Urine WBC Ur Epithelial Cells 08/10/18 08/11/18 16:00 06:00 WBC RBC Hgb Hct MCV MCH MCHC RDW Plt Count MPV Neut % (Auto) Lymph % (Auto) [place] % (Auto) Eos % (Auto) Baso % (Auto) Lymph # (Auto) [place] # (Auto) Eos # (Auto) Baso # (Auto) Absolute Neuts (auto) Neutrophils % (Manual) Lymphocytes % (Manual) Monocytes % (Manual) PT INR APTT D-Dimer, Quantitative 688 H Sodium Potassium Chloride Carbon Dioxide Anion Gap BUN Creatinine Est GFR ( Amer) Est GFR (Non-Af Amer) Random Glucose Calcium Magnesium Total Bilirubin AST ALT Alkaline Phosphatase Lactate Dehydrogenase Total Creatine Kinase Troponin I Total Protein Albumin Globulin Albumin/Globulin Ratio Lipase Urine Color Yellow Urine Appearance Clear Urine pH 6.5 Ur Specific [place] 1.015 Urine Protein 100 H Urine Glucose (UA) Negative Urine Ketones Trace H Urine Blood Trace-intact H Urine Nitrate Negative Urine Bilirubin Negative Urine Urobilinogen 1.0 H Ur Leukocyte Esterase Negative Urine RBC 5 - 10 H Urine WBC 5 - 10 H Ur Epithelial Cells 10 - 12 H Assessment & Plan - Assessment and Plan (Free Text) Assessment: 1. Acute COPD exacerbation 2. New metastatic right adrenal lesion 3. Leukocytosis 4. Non small cell lung cancer Stage IV ( on chemo and radiation) 5. Left adrenal mass 6. Deconditioning/weakness Will start on Solumedrol 30 mg IV q 12h, duonebs edi and prn. Will resume home coreg 3.125 mg bid and lasix. Will consult Dr Prabhakar, radiation oncologist, for continuing her radiation treatments while inpatient. Will monitor wbc count. Monitor blood pressure on anti-HTN. Will obtain Physical therapy evaluation for weakness. PPX: protonix, heparin subq Case discussed with attending, Dr Mrianda. <Alejandro Miranda S - Last Filed: 08/11/18 20:00> Results - Vital Signs Recent Vital Signs: Last Vital Signs Temp 98.2 F 08/11/18 12:00 Pulse 107 H 08/11/18 17:52 Resp 18 08/11/18 12:00 BP 105/79 08/11/18 17:52 Pulse Ox 94 L 08/10/18 20:40 - Labs Result Diagrams: 08/11/18 07:14 08/11/18 07:14 Labs: Laboratory Results - last 24 hr 08/11/18 08/11/18 08/11/18 06:00 07:14 07:14 WBC 13.1 H RBC 3.57 Hgb 9.9 L D Hct 31.7 L MCV 88.8 MCH 27.7 MCHC 31.2 RDW 18.1 H Plt Count 284 MPV 8.0 D-Dimer, Quantitative 688 H Sodium 131 L Potassium 4.0 Chloride 89 L Carbon Dioxide 37 H Anion Gap 9 L BUN 23 H Creatinine 1.3 H Est GFR ( Amer) 50 Est GFR (Non-Af Amer) 42 Random Glucose 195 H Calcium 10.0 Phosphorus 3.8 Magnesium 1.7 Total Bilirubin 0.5 AST 25 ALT < 6 L Alkaline Phosphatase 97 Total Protein 7.4 Albumin 3.6 Globulin 3.8 Albumin/Globulin Ratio 0.9 L Assessment & Plan - Assessment and Plan (Free Text) Assessment: Pt seen and examined by me. I have reviewed the note of the medical terminologist and I agree with it. I have discussed the assessment and plan with the resident. I have reviewed the medications and the last labs.
[2018-08-11] MEDS: Albuterol-Ipratrop 3 mg / 0.5 (3 ml) UD IH SCH ×3 (07:35→19:10)
--- NOTE | 2018-08-11 08:29 | CP.PCM.PN ---
Subjective - Date & Time of Evaluation Date of Evaluation: 08/11/18 Time of Evaluation: 08:30 - Subjective Subjective: Ms Pablo is known to our department. She has stage IV lung cancer. When we saw her yesterday, she was complaining of worsening shortness of breath and not feeling well. She is currently getting palliative radiation to the central mass due to narrowing of the airways. We are continuing her palliative treatment for now. Objective - Vital Signs/Intake and Output Vital Signs (last 24 hours): Temp Pulse Resp BP Pulse Ox 97.2 F L 105 H 19 109/73 94 L 08/11/18 06:00 08/11/18 06:00 08/11/18 06:00 08/11/18 06:00 08/10/18 20:40 Intake and Output: 08/11/18 08/11/18 06:59 18:59 Intake Total 120 Balance 120 - Medications Medications: Current Medications Albuterol/Ipratropium (Duoneb 3 Mg/0.5 Mg (3 Ml) Ud) 3 ml IH TIDRESP [facility] Last Admin: 08/11/18 07:35 Dose: 3 ml Carvedilol (Coreg) 3.125 mg PO BID [facility] Furosemide (Lasix) 40 mg PO DAILY [facility] Oxycodone HCl (Oxycodone Immediate Release Tab) 10 mg PO Q6 PRN PRN Reason: Pain, moderate (4-7) - Labs Labs: 08/10/18 14:36 08/10/18 14:36 PT 14.3 SECONDS (9.4-12.5) H 08/10/18 14:36 INR 1.29 08/10/18 14:36 APTT 33.6 Seconds (26.9-38.3) 08/10/18 14:36
--- NOTE | 2018-08-11 08:55 | CP.PCM.PN ---
Subjective - Date & Time of Evaluation Date of Evaluation: 08/11/18 Time of Evaluation: 08:50 - Subjective Subjective: Ms Quinn is currently down in the radiation department. She is refusing radiation today as she continues to feel worse despite being in the hospital. She feels that this is due to her treatment. On comparison of her pre-radiation and yesterday's CT scan of the chest, it is apparent that the left lung is more aerated since she had radiation, however there continues to remain a dense consolidation in the left lower lobe. Her WBC is elevated which is new, however she is afebrile. This could suggest that there could be an infectious process that is causing her to feel worse and have more labored breathing especially if there is improvement in aeration and no embolus that could cause decompensation. We are attempting to reaching out to the medicine team for their input/guidance. Objective - Vital Signs/Intake and Output Vital Signs (last 24 hours): Temp Pulse Resp BP Pulse Ox 97.2 F L 105 H 19 109/73 94 L 08/11/18 06:00 08/11/18 06:00 08/11/18 06:00 08/11/18 06:00 08/10/18 20:40 Intake and Output: 08/11/18 08/11/18 06:59 18:59 Intake Total 120 Balance 120 - Medications Medications: Current Medications Albuterol/Ipratropium (Duoneb 3 Mg/0.5 Mg (3 Ml) Ud) 3 ml IH TIDRESP [facility] Last Admin: 08/11/18 07:35 Dose: 3 ml Carvedilol (Coreg) 3.125 mg PO BID [facility] Furosemide (Lasix) 40 mg PO DAILY [facility] Oxycodone HCl (Oxycodone Immediate Release Tab) 10 mg PO Q6 PRN PRN Reason: Pain, moderate (4-7) - Labs Labs: 08/10/18 14:36 08/10/18 14:36 PT 14.3 SECONDS (9.4-12.5) H 08/10/18 14:36 INR 1.29 08/10/18 14:36 APTT 33.6 Seconds (26.9-38.3) 08/10/18 14:36
[2018-08-11] MEDS: oxyCODONE 10 mg Immediate Release Tab PO PRN ×2 (09:47→20:15)
[2018-08-11 10:09] LABS: HEMOGLOBIN 9.9 g/dL (12.0-16.0); MEAN CELL VOLUME 88.8 fl (80.0-105.0); MEAN CORPUSCULAR HEMOGLOBIN 27.7 pg (25.0-35.0); MEAN CORPUSCULAR HGB CONC 31.2 g/dl (31.0-37.0); RBC 3.57 10^6/uL (3.5-6.1); RED CELL DISTRIBUTION WIDTH 18.1 % (11.5-14.5); WHITE BLOOD COUNT 13.1 10^3/uL (4.5-11.0)
[2018-08-11 10:26] LABS: ALB/GLOB RATIO 0.9 (1.1-1.8); ALBUMIN 3.6 g/dL (3.0-4.8); ALT/SGPT < 6 U/L (7-56); AST/SGOT 25 U/L (14-36); BLOOD UREA NITROGEN 23 mg/dL (7-21); GFR NON-AFRICAN AMERICAN 42
[2018-08-11] MEDS ORDERED: Albuterol-Ipratrop 3 mg / 0.5 (3 ml) UD IH PRN (11:16)
[2018-08-11] MEDS: MethylPREDNISolone 40 mg Vial IVP SCH ×2 (12:25→21:59)
[2018-08-11 21:20] VITALS: RESP 20
--- NOTE | 2018-08-11 21:36 | HP ---
DATE OF EXAM: 08/11/2018 HISTORY OF PRESENT ILLNESS: The patient was seen and examined. I did review the notes of the vice president medical affairs and I do agree with the note I was involved in the plan of care. The patient is well known to me. She has a history of stage IV non-small cell cancer of the lung. She has had radiation. She is being followed by Dr. Wood. The patient has a persistent left pleural effusion as well as adrenal masses. She had come in because she was more short of breath. She was uncomfortable at home. She has been getting palliative radiation by Dr. Prabhakar. She was given steroids and nebulizer treatments. She will continue as an inpatient. She is on Solu-Medrol 30 mg every 12. The patient is deconditioned. She is requiring oxygen at this point. She says she is feeling weak. Normally she does not like to stay in the hospital, but she says that she would like to stay till you feel better. She is going to continue with heparin for DVT prophylaxis. She is on carvedilol. She is going to be on Zosyn. She does have anemia that is chronic. She has mild hyponatremia. We will continue to monitor closely. Alejandro Miranda MD
[2018-08-12] MEDS: oxyCODONE 10 mg Immediate Release Tab PO PRN ×4 (02:12→23:47)
[2018-08-12] MEDS ORDERED: DiphenhydrAMINE 50 mg/ml Inj IVP STA (03:00)
[2018-08-12] MEDS: Pantoprazole 40 mg EC Tab PO SCH (05:31)
[2018-08-12] MEDS: Albuterol-Ipratrop 3 mg / 0.5 (3 ml) UD IH SCH ×4 (07:33→21:00)
[2018-08-12] MEDS: MethylPREDNISolone 40 mg Vial IVP SCH ×2 (09:56→22:01)
--- NOTE | 2018-08-12 19:21 | PN ---
DATE: 08/12/2018 SUBJECTIVE: Patient has no complaints of any chest pain. No shortness of breath. She said she had a difficult time sleeping last night, but did took Xanax that helped her. PHYSICAL EXAMINATION: VITAL SIGNS: Temperature is 97.9, pulse of 116, blood pressure is 121/81, respiration is 20. GENERAL: The patient is lying in bed, flat, comfortable. HEENT: No oral lesion. Anicteric sclerae. Moist mucosa. NECK: No JVD, adenopathy, or thyromegaly. CARDIOVASCULAR: S1 and S2, regular. No murmurs, rubs, or gallops. LUNGS: Clear to auscultation bilaterally. No wheeze, rales, or rhonchi. ABDOMEN: Bowel sounds are positive, soft, nontender and nondistended. EXTREMITIES: no cyanosis, clubbing or edema. LABORATORY DATA: White count of 13.1, hemoglobin 9.9, creatinine is 1.3. This is blood work from 08/11/2018. ASSESSMENT 1. Acute chronic obstructive pulmonary disease exacerbation. 2. Non-small cell carcinoma stage IV. 3. Leukocytosis. 4. Bilateral adrenal masses. 5. Deconditioning. 6. Gait dysfunction. PLAN: The patient is currently receiving carvedilol. She is on heparin for DVT prophylaxis. She is receiving Lasix daily. She is on pain medications and I have increased the pain medications to 15 mg every 6 hours. She is complaining of 4 to 5 out of 10 pain overnight. Patient is on Solu-Medrol. This will be continued. She is on Xanax that I started for her anxiety. She is on a heart-healthy diet. Patient does state that she is improved from when she first came into the hospital. Alejandro Miranda MD
[2018-08-13] MEDS: Pantoprazole 40 mg EC Tab PO SCH (06:15)
--- NOTE | 2018-08-13 06:29 | CP.PCM.PN ---
Subjective - Date & Time of Evaluation Date of Evaluation: 08/13/18 Time of Evaluation: 06:28 Objective - Vital Signs/Intake and Output Vital Signs (last 24 hours): Temp Pulse Resp BP Pulse Ox 97.9 F 106 H 20 112/75 94 L 08/12/18 06:00 08/12/18 17:37 08/12/18 06:00 08/12/18 17:37 08/12/18 06:00 Intake and Output: 08/12/18 08/13/18 18:59 06:59 Intake Total 840 Balance 840 - Medications Medications: Current Medications Albuterol/Ipratropium (Duoneb 3 Mg/0.5 Mg (3 Ml) Ud) 3 ml IH TIDRESP [facility] Last Admin: 08/12/18 19:50 Dose: 3 ml Albuterol/Ipratropium (Duoneb 3 Mg/0.5 Mg (3 Ml) Ud) 3 ml IH Q2H PRN PRN Reason: Shortness of Breath Alprazolam (Xanax) 0.5 mg PO Q6H PRN; Protocol PRN Reason: Anxiety Last Admin: 08/12/18 09:55 Dose: 0.5 mg Carvedilol (Coreg) 3.125 mg PO BID [facility] Last Admin: 08/12/18 20:59 Dose: Not Given Furosemide (Lasix) 40 mg PO DAILY [facility] Last Admin: 08/12/18 09:55 Dose: 40 mg Heparin Sodium (Porcine) (Heparin) 5,000 units SC Q8 [facility]; Protocol Last Admin: 08/13/18 06:15 Dose: 5,000 units Methylprednisolone (Solu-Medrol) 30 mg IVP Q12 [facility] Last Admin: 08/12/18 22:01 Dose: 30 mg Oxycodone HCl (Oxycodone Immediate Release Tab) 15 mg PO Q6 PRN PRN Reason: Pain, moderate (4-7) Last Admin: 08/12/18 23:47 Dose: 15 mg Pantoprazole Sodium (Protonix Ec Tab) 40 mg PO 0600 [facility] Last Admin: 08/13/18 06:15 Dose: 40 mg - Labs Labs: 08/11/18 07:14 08/11/18 07:14 PT 14.3 SECONDS (9.4-12.5) H 08/10/18 14:36 INR 1.29 08/10/18 14:36 APTT 33.6 Seconds (26.9-38.3) 08/10/18 14:36
[2018-08-13] MEDS: oxyCODONE 10 mg Immediate Release Tab PO PRN (06:33)
[2018-08-13 07:23] LABS: HEMOGLOBIN 10.2 g/dL (12.0-16.0); MEAN CELL VOLUME 90.1 fl (80.0-105.0); MEAN CORPUSCULAR HEMOGLOBIN 27.3 pg (25.0-35.0); MEAN CORPUSCULAR HGB CONC 30.3 g/dl (31.0-37.0); MEAN PLATELET VOLUME 8.2 fl (7.0-11.0); RBC 3.74 10^6/uL (3.5-6.1); RED CELL DISTRIBUTION WIDTH 18.3 % (11.5-14.5); WHITE BLOOD COUNT 16.8 10^3/uL (4.5-11.0)
[2018-08-13] MEDS: Albuterol-Ipratrop 3 mg / 0.5 (3 ml) UD IH SCH ×2 (07:42→13:35)
[2018-08-13 07:43] LABS: ALBUMIN 3.7 g/dL (3.0-4.8); ALT/SGPT < 6 U/L (7-56); AST/SGOT 43 U/L (14-36); BLOOD UREA NITROGEN 31 mg/dL (7-21); CALCIUM 9.5 mg/dL (8.4-10.5); GFR NON-AFRICAN AMERICAN 42
[2018-08-13 08:27] VITALS: PULSE 103; TEMP 98.1; O2SAT 100
[2018-08-13] MEDS: MethylPREDNISolone 40 mg Vial IVP SCH (09:23)
[2018-08-13 09:32] VITALS: BP 126/80
--- NOTE | 2018-08-13 11:12 | CP.PCM.DIS ---
Provider - Provider Date of Admission: 08/10/18 18:05 Attending physician: Alejandro Miranda MD Primary care physician: Christine Wood MD Consults: 08/11/18 08:18 Consult [Physician Consult] Routine Comment: Consulting Provider: Anamika Prabhakar Consulting Physician: Anamika Prabhakar Reason for Consult: Lung Ca Time Spent in preparation of Discharge (in minutes): 60 Diagnosis - Discharge Diagnosis (1) COPD (chronic obstructive pulmonary disease) Status: Acute (2) Weakness Status: Acute Hospital Course - Lab Results Lab Results: Micro Results 08/10/18 16:00 Urine,Clean Catch Urine Culture - Final Escherichia Coli 08/10/18 19:56 Blood Blood Culture - Preliminary NO GROWTH AFTER 48 HOURS 08/10/18 19:15 Blood Blood Culture - Preliminary NO GROWTH AFTER 48 HOURS Most Recent Lab Values WBC 16.8 10^3/uL (4.5-11.0) H D 08/13/18 06:30 RBC 3.74 10^6/uL (3.5-6.1) 08/13/18 06:30 Hgb 10.2 g/dL (12.0-16.0) L 08/13/18 06:30 Hct 33.7 % (36.0-48.0) L 08/13/18 06:30 MCV 90.1 fl (80.0-105.0) 08/13/18 06:30 MCH 27.3 pg (25.0-35.0) 08/13/18 06:30 MCHC 30.3 g/dl (31.0-37.0) L 08/13/18 06:30 RDW 18.3 % (11.5-14.5) H 08/13/18 06:30 Plt Count 372 10^3/uL (120.0-450.0) 08/13/18 06:30 MPV 8.2 fl (7.0-11.0) 08/13/18 06:30 Neut % (Auto) 86.2 % (50.0-68.0) H 08/10/18 14:36 Lymph % (Auto) 4.7 % (22.0-35.0) L 08/10/18 14:36 [place] % (Auto) 8.6 % (1.0-6.0) H 08/10/18 14:36 Eos % (Auto) 0.3 % (1.5-5.0) L 08/10/18 14:36 Baso % (Auto) 0.2 % (0.0-3.0) 08/10/18 14:36 Lymph # (Auto) 0.6 (1.2-3.4) L 08/10/18 14:36 [place] # (Auto) 1.1 (0.1-0.6) H 08/10/18 14:36 Eos # (Auto) 0.0 (0.0-0.7) 08/10/18 14:36 Baso # (Auto) 0.02 K/mm3 (0.0-2.0) 08/10/18 14:36 Absolute Neuts (auto) 11.37 (1.4-6.5) H 08/10/18 14:36 Neutrophils % (Manual) 88 % (50.0-70.0) H 08/10/18 14:36 Lymphocytes % (Manual) 4 % (22.0-35.0) L 08/10/18 14:36 Monocytes % (Manual) 8 % (1.0-6.0) H 08/10/18 14:36 PT 14.3 SECONDS (9.4-12.5) H 08/10/18 14:36 INR 1.29 08/10/18 14:36 APTT 33.6 Seconds (26.9-38.3) 08/10/18 14:36 D-Dimer, Quantitative 688 ng/mlDDU (0-243) H 08/11/18 06:00 Sodium 135 mmol/L (132-148) 08/13/18 06:30 Potassium 3.8 mmol/L (3.6-5.0) 08/13/18 06:30 Chloride 88 mmol/L (98-107) L 08/13/18 06:30 Carbon Dioxide 40 mmol/L (21-33) H 08/13/18 06:30 Anion Gap 12 (10-20) 08/13/18 06:30 BUN 31 mg/dL (7-21) H 08/13/18 06:30 Creatinine 1.3 mg/dl (0.7-1.2) H 08/13/18 06:30 Est GFR ( Amer) 50 08/13/18 06:30 Est GFR (Non-Af Amer) 42 08/13/18 06:30 Random Glucose 131 mg/dL (70-110) H 08/13/18 06:30 Calcium 9.5 mg/dL (8.4-10.5) 08/13/18 06:30 Phosphorus 3.8 mg/dL (2.5-4.5) 08/11/18 07:14 Magnesium 1.7 mg/dL (1.7-2.2) 08/11/18 07:14 Total Bilirubin 0.3 mg/dL (0.2-1.3) 08/13/18 06:30 AST 43 U/L (14-36) H D 08/13/18 06:30 ALT < 6 U/L (7-56) L 08/13/18 06:30 Alkaline Phosphatase 99 U/L (38-126) 08/13/18 06:30 Lactate Dehydrogenase 283 U/L (333-699) L 08/10/18 14:36 Total Creatine Kinase < 20 U/L (35-230) L 08/10/18 14:36 Troponin I < 0.01 ng/mL 08/10/18 14:36 Total Protein 7.6 g/dL (5.8-8.3) 08/13/18 06:30 Albumin 3.7 g/dL (3.0-4.8) 08/13/18 06:30 Globulin 3.9 gm/dL 08/13/18 06:30 Albumin/Globulin Ratio 1.0 (1.1-1.8) L 08/13/18 06:30 Lipase 37 U/L (23-300) 08/10/18 14:36 Urine Color Yellow (YELLOW) 08/10/18 16:00 Urine Appearance Clear (CLEAR) 08/10/18 16:00 Urine pH 6.5 (4.7-8.0) 08/10/18 16:00 Ur Specific [place] 1.015 (1.005-1.035) 08/10/18 16:00 Urine Protein 100 mg/dL (<30 mg/dL) H 08/10/18 16:00 Urine Glucose (UA) Negative mg/dL (NEGATIVE) 08/10/18 16:00 Urine Ketones Trace mg/dL (NEGATIVE) H 08/10/18 16:00 Urine Blood Trace-intact (NEGATIVE) H 08/10/18 16:00 Urine Nitrate Negative (NEGATIVE) 08/10/18 16:00 Urine Bilirubin Negative (NEGATIVE) 08/10/18 16:00 Urine Urobilinogen 1.0 E.U./dL (<1 E.U./dL) H 08/10/18 16:00 Ur Leukocyte Esterase Negative Fabi/uL (NEGATIVE) 08/10/18 16:00 Urine RBC 5 - 10 /hpf (0-2) H 08/10/18 16:00 Urine WBC 5 - 10 /hpf (0-6) H 08/10/18 16:00 Ur Epithelial Cells 10 - 12 /hpf (0-5) H 08/10/18 16:00 - Hospital Course Hospital Course: This is a 62 year old female, with PMH COPD, stage IV NSCLC (currently on chemo and radiation) with radiation to left adrenal gland, was sent to the emergency room by her radiation oncologist for shortness of breath. Patient was getting her radiation treatment when she felt increasing shortness of breath and worsening fatigue. Denies fevers, chills, nausea, vomiting, dizziness, syncope, cough, abdominal pain, diarrhea, urinary symptoms, leg swelling. In ED, patient was afebrile with HR 112, other vitals stable. CT angio negative for PE, but showed extensive metastatic disease in lungs, new right adrenal lesion (possible new mets). Patient received Vanco, Zosyn, solumedrol 125 mg IV, and oxycodone in ED. Patient admitted for COPD exacerbation, weakness. Patient started on Solumedrol, duonebs edi and prn. Her pain managed with Oxycodone prn. Her anxiety also managed with xanax prn. During hospital course, patient refused radiation treatment with Dr Prabhakar as she was feeling fatigued. Physical therapy evaluated patient and recommended home. This AM, patient feels well, denies shortness of breath, ambulating well to the bathroom. Patient states that she would like to go home and meet her son as well. Patient discharged home on medrol dose pack and her other home meds. Case reviewed and discussed with Dr Miranda. Discharge Exam - Additional Findings Additional findings: - Constitutional Appears: Non-toxic, No Acute Distress - Head Exam Head Exam: ATRAUMATIC, NORMOCEPHALIC - Eye Exam Eye Exam: EOMI, PERRL. absent: Conjunctival injection, Nystagmus, Scleral icterus Pupil Exam: NORMAL ACCOMODATION, PERRL. absent: Irregular, Miosis, Mydriatic - ENT Exam ENT Exam: Mucous Membranes Moist - Neck Exam Neck exam: Positive for: Full Rom - Respiratory Exam Respiratory Exam: CTA. absent: Chest Wall Tenderness, Rales, Respiratory Distress, Stridor - Cardiovascular Exam Cardiovascular Exam: RRR, +S1, +S2. absent: Systolic Murmur - GI/Abdominal Exam GI & Abdominal Exam: Normal Bowel Sounds, Soft. absent: Distended, Firm, Mass, Rebound, Rigid - Extremities Exam Extremities exam: Positive for: normal inspection. Negative for: calf tenderness, pedal edema - Back Exam Back exam: NORMAL INSPECTION - Neurological Exam Neurological exam: Alert, Oriented x3 - Psychiatric Exam Psychiatric exam: Normal Affect, Normal Mood - Skin Skin Exam: Dry, Normal Color, Warm Discharge Plan - Discharge Medications Prescriptions: Dextroamphetamine/Amphetamine [Adderall 20 mg Tablet] 20 mg PO TID #90 tablet Methylprednisolone [Medrol Dose Pack (21 tabs)] 4 mg PO DAILY #21 mg oxyCODONE [oxyCODONE Immediate Release Tab] 10 mg PO BID #60 tab - Follow Up Plan Condition: GUARDED Disposition: HOME/ ROUTINE Instructions: Exacerbation of COPD (DC) Additional Instructions: - Take medications as directed. - Follow up with primary care doctor in 3-5 days. Return to the emergency room for any worsening symptoms. Referrals: Christine Wood MD [Primary Care Provider] -
== END 2018-08-13 14:29 | disposition home or self-care (01) | DRG 191 ==
LOC: ED 13:34 → ERH 18:05 → 2RNO 20:46 → 3RNO 08-11 18:42
PROVIDERS: ADMIT Internal Medicine Nephrology; ATTEND Internal Medicine Nephrology
DX: J44.1 Chronic obstructive pulmonary disease with (acute) exacerbation (principal); C34.90 Malignant neoplasm of unspecified part of unspecified bronchus or lung; C79.71 Secondary malignant neoplasm of right adrenal gland; E87.1 Hypo-osmolality and hyponatremia; J90 Pleural effusion, not elsewhere classified; J44.0 Chronic obstructive pulmonary disease with (acute) lower respiratory infection; Z51.5 Encounter for palliative care; D64.9 Anemia, unspecified; F41.9 Anxiety disorder, unspecified; F90.9 Attention-deficit hyperactivity disorder, unspecified type; G47.00 Insomnia, unspecified; N18.9 Chronic kidney disease, unspecified; Z53.20 Procedure and treatment not carried out because of patient's decision for unspecified reasons; Z80.6 Family history of leukemia; Z82.49 Family history of ischemic heart disease and other diseases of the circulatory system; Z83.3 Family history of diabetes mellitus; Z87.891 Personal history of nicotine dependence; R00.0 Tachycardia, unspecified

== ENCOUNTER 2018-08-31 17:25 | Inpatient (IN) | payer OTHER ==
--- NOTE | 2018-08-31 17:49 | ED PDOC ---
Arrival/HPI - General Time Seen by Provider: 08/31/18 17:31 Historian: Patient - History of Present Illness Narrative History of Present Illness (Text): 08/31/18 17:43 62 year old female, with PMHx of COPD on 2L home O2, stage IV NSCLC (currently on chemo and radiation, last chemotherapy was 08/24/18 ) with radiation to left adrenal gland, was sent to the emergency room by Dr. Wood for evaluation of low Oxygen saturation prior to arrival. Patient states she was in Dr. Wood's office for routine chemotherapy when she was found to be saturating in the 60s on Room Air and was subsequently referred to the ED for evaluation. Patient reports worsening shortness of breath associated with productive cough since past 2 days. Patient additionally states generalized myalgias but denies any fever, chills, nausea, vomiting, diarrhea, abdominal pain, chest pain, neck pain, back pain, headache, dizziness, or any other complaints. Oncologist: Dr. Wood Time/Duration: < week Symptom Onset: Gradual Symptom Course: Unchanged Activities at Onset: Light Context: Other (Referred by Dr. Wood) Past Medical History - Provider Review Nursing Documentation Reviewed: Yes - Past History Past History: No Previous - Infectious Disease Hx of Infectious Diseases: None - Past Medical History Past Medical History: No Previous - Cardiac Hx Cardiac Disorders: No - Pulmonary Hx Respiratory Disorders: Yes Hx Lung Cancer: Yes (on chemo) - Neurological Hx Neurological Disorder: No - HEENT Hx HEENT Disorder: No - Renal Hx Renal Disorder: Yes Hx Renal Failure: Yes - Endocrine/Metabolic Hx Endocrine Disorders: No - Hematological/Oncological Hx Blood Disorders: Yes Hx Blood Transfusions: Yes - Integumentary Hx Dermatological Disorder: No - Musculoskeletal/Rheumatological Hx Musculoskeletal Disorders: No - Gastrointestinal Hx Gastrointestinal Disorders: No - Genitourinary/Gynecological Hx Genitourinary Disorders: No - Psychiatric Hx Psychophysiologic Disorder: No Hx Substance Use: No - Surgical History Other/Comment: R chest port - Anesthesia Hx Anesthesia: Yes Hx Anesthesia Reactions: No Hx Malignant Hyperthermia: No - Suicidal Assessment Feels Threatened In Home Enviroment: No Family/Social History - Physician Review Nursing Documentation Reviewed: Yes Family/Social History: Unknown Family HX Smoking Status: Former Smoker Hx Alcohol Use: No Hx Substance Use: No Hx Substance Use Treatment: No Allergies/Home Meds Allergies/Adverse Reactions: Allergies No Known Allergies Allergy (Verified 08/10/18 13:50) Home Medications: Home Meds Medication Instructions Recorded Confirmed Carvedilol [Coreg] 3.125 mg PO BID 07/27/18 08/31/18 Furosemide [Lasix] 40 mg PO PRN 07/27/18 08/31/18 Potassium Chloride [K-Tab ER] 10 meq PO DAILY 07/27/18 08/31/18 oxyCODONE [oxyCODONE Immediate 10 mg PO PRN PRN 07/27/18 08/31/18 Release Tab] Review of Systems - Review of Systems Constitutional: absent: Fevers Eyes: absent: Vision Changes Respiratory: SOB, Cough, Sputum, Wheezing Cardiovascular: absent: Chest Pain, Palpitations, OROURKE Gastrointestinal: absent: Abdominal Pain, Diarrhea, Nausea, Vomiting Genitourinary Female: absent: Dysuria, Urine Output Changes Musculoskeletal: Myalgias. absent: Back Pain, Neck Pain Skin: absent: Rash Neurological: absent: Headache, Dizziness Endocrine: absent: Diaphoresis Psychiatric: absent: Anxiety Physical Exam Vital Signs Reviewed: Yes Vital Signs Pulse Resp BP Pulse Ox 08/31/18 17:36 123 H 20 112/77 80 L Temperature: Afebrile Blood Pressure: Normal Pulse: Tachycardic Respiratory Rate: Normal Appearance: Positive for: Ill-Appearing Pain Distress: None Mental Status: Positive for: Alert and Oriented X 3 - Systems Exam Head: Present: Atraumatic, Normocephalic Pupils: Present: PERRL Extroacular Muscles: Present: EOMI Conjunctiva: Present: Normal Respiratory/Chest: Present: Wheezes, Tachypneic, Other (Coarse breath sounds bilaterally ). No: Respiratory Distress, Accessory Muscle Use Cardiovascular: Present: Normal S1, S2, Tachycardic. No: Murmurs Abdomen: No: Tenderness, Distention, Peritoneal Signs Upper Extremity: Present: Normal Inspection. No: Cyanosis, Edema Lower Extremity: Present: Edema Neurological: Present: GCS=15, Speech Normal Skin: Present: Warm, Dry, Normal Color. No: Rashes Psychiatric: Present: Alert, Oriented x 3, Normal Insight, Normal Concentration Medical Decision Making ED Course and Treatment: 08/31/18 17:53 Impression: 62 year old female presents to the ED for evaluation of worsening shortness of breath. Extensive medical history Plan: -- VBG -- EKG -- Labs -- CXR -- Duoneb -- Solumedrol -- Blood Culture -- Reassess and disposition Prior Visits: Notes and results from previous visits were reviewed. Progress Notes: 08/31/18 17:[address] Wood, who expresses concern for COPD exacerbation and not PE. She is requesting that I discontinue CTA and not give patient contrast. As per Dr. Wood's request, consulted Dr. Mathews on consult for cardiology evaluation and will give patient Zosyn for antibiotic coverage. Patient admitted under Dr. Wood for COPD exacerbation. - RAD Interpretation Radiology Orders: 08/31/18 17:34 CHEST PORTABLE [RAD] Stat - Scribe Statement The provider has reviewed the documentation as recorded by the Scribe Noe Goodwin. All medical record entries made by the Scribe were at my direction and personally dictated by me. I have reviewed the chart and agree that the record accurately reflects my personal performance of the history, physical exam, medical decision making, and the department course for this patient. I have also personally directed, reviewed, and agree with the discharge instructions and disposition. Disposition/Present on Arrival - Present on Arrival Any Indicators Present on Arrival: No History of DVT/PE: No History of Uncontrolled Diabetes: No Urinary Catheter: No History Surgical Site Infection Following: None - Disposition Have Diagnosis and Disposition been Completed?: Yes Diagnosis: COPD (chronic obstructive pulmonary disease), Metastatic cancer, Hypochloremia Disposition: HOSPITALIZED Disposition Time: 17:58 Condition: FAIR
[2018-08-31] MEDS ORDERED: Piperacillin/Tazobact 3.375 gm 100 ML IVPB STA (17:55)
[2018-08-31] MEDS: Albuterol-Ipratrop 3 mg / 0.5 (3 ml) UD IH SCH ×3 (18:17→18:47)
[2018-08-31 18:18] LABS: VENOUS BLOOD GAS BASE EXCESS 9.1 mmol/L (0.0-2.0); VENOUS BLOOD GAS PO2 37 mm/Hg (30-55); VENOUS BLOOD PH 7.43 (7.32-7.43)
[2018-08-31 18:27] LABS: BASO # 0.02 K/mm3 (0.0-2.0); BASO % 0.2 % (0.0-3.0); EOS # 0.1 (0.0-0.7); EOS % 0.9 % (1.5-5.0); HEMOGLOBIN 9.4 g/dL (12.0-16.0); LYMPH # 0.6 (1.2-3.4); LYMPH % 6.3 % (22.0-35.0); MEAN CELL VOLUME 89.8 fl (80.0-105.0); MEAN CORPUSCULAR HEMOGLOBIN 28.3 pg (25.0-35.0); MEAN CORPUSCULAR HGB CONC 31.5 g/dl (31.0-37.0); MEAN PLATELET VOLUME 8.4 fl (7.0-11.0); MONO % 9.5 % (1.0-6.0); RBC 3.32 10^6/uL (3.5-6.1); RED CELL DISTRIBUTION WIDTH 17.4 % (11.5-14.5); WHITE BLOOD COUNT 10.2 10^3/uL (4.5-11.0)
[2018-08-31 18:37] LABS: ALB/GLOB RATIO 0.8 (1.1-1.8); ALBUMIN 3.1 g/dL (3.0-4.8); ALT/SGPT 7 U/L (7-56); AST/SGOT 28 U/L (14-36); BLOOD UREA NITROGEN 17 mg/dL (7-21); CALCIUM 9.7 mg/dL (8.4-10.5); GFR NON-AFRICAN AMERICAN 46
[2018-08-31 18:39] LABS: INR 1.4; PARTIAL THROMBOPLASTIN TIME 34.9 Seconds (26.9-38.3); PROTHROMBIN TIME 15.5 SECONDS (9.4-12.5)
--- NOTE | 2018-08-31 18:42 | RAD ---
Date of service: 08/31/2018 HISTORY: COPD. COMPARISON: 08/10/2018. Single-view chest. 08/10/2018 CT pulmonary angiogram FINDINGS: LUNGS: Improved aeration left lung. PLEURA: Decrease in left pleural effusion. CARDIOVASCULAR: No atherosclerotic calcification present No significant interval change compared to the prior examination(s). Venous access catheter in stable, satisfactory position. OSSEOUS STRUCTURES: No significant abnormalities. VISUALIZED UPPER ABDOMEN: Normal. OTHER FINDINGS: None. IMPRESSION: Decrease in left pleural effusion/commensurate improved aeration left lower lobe.
[2018-08-31] MEDS ORDERED: Sodium Chloride 0.9% 1,000 ML IV SCH (18:45)
[2018-08-31 18:47] LABS: B-TYPE NATRIURETIC PEPTIDE 4650 pg/mL (0-450); TROPONIN I < 0.01 ng/mL
[2018-08-31] MEDS ORDERED: Potassium Chloride 20 mEq ER Tab PO SCH (22:30)
--- NOTE | 2018-08-31 22:37 | CARD ---
APPROVED REPORT Date of service: 08/31/2018 EKG Measurement Heart [id number] <Conclusion> Sinus tachycardia Nonspecific T wave abnormality Abnormal ECG
[2018-08-31] MEDS ORDERED: oxyCODONE 20 mg ER Tab (oxyCONTIN) PO SCH (22:45)
[2018-08-31 22:55] VITALS: BMI 20.9
[2018-08-31] MEDS: Sodium Chloride 0.45% 1,000 ML IV SCH (23:41)
[2018-09-01] MEDS: oxyCODONE 10 mg Immediate Release Tab PO PRN ×2 (03:40→18:17)
[2018-09-01] MEDS: Ipratropium 0.02% Inhal Soln (0.5 mg/2.5 ml) UD IH SCH ×3 (08:05→19:20)
[2018-09-01] MEDS: Levalbuterol 1.25 MG/3 ML Inhal Soln UD IH SCH ×3 (08:05→19:20)
[2018-09-01] MEDS: MethylPREDNISolone 40 mg Vial IVP SCH ×2 (09:01→22:15)
[2018-09-01] MEDS: AMPHETAMINE PO SCH ×3 (09:11→17:43)
[2018-09-01] MEDS: DEXTROAMPHETAMINE PO SCH ×3 (09:11→17:43)
[2018-09-01] MEDS ORDERED: MEROPENEM 500 MG in NS 500 MG/50 ML BAG IVPB SCH (10:00)
[2018-09-01 10:18] LABS: URINE BILIRUBIN NEGATIVE (NEGATIVE); URINE BLOOD NEGATIVE (NEGATIVE); URINE GLUCOSE (UA) NEGATIVE (NEGATIVE); URINE LEUKOCYTE ESTERASE NEGATIVE Leu/uL (NEGATIVE); URINE PROTEIN 30 mg/dL (<30 mg/dL); URINE UROBILINOGEN 0.2 E.U./dL (<1 E.U./dL)
[2018-09-01 10:27] LABS: URINE APPEARANCE CLEAR (CLEAR); URINE COLOR YELLOW (YELLOW)
[2018-09-01] MEDS: Vancomycin 1gm in NS 250ml 1 GM/250 ML BAG IVPB SCH (11:07)
[2018-09-01 11:08] LABS: URINE BACTERIA MANY /hpf; URINE FINE GRANULAR CAST 0 - 2 /hpf
[2018-09-01 11:09] LABS: URINE AMORPHOUS SEDIMENT FEW /hpf; URINE COARSE GRANULAR CAST SMALL /hpf
--- NOTE | 2018-09-01 12:07 | CP.PCM.CON ---
<Harshal Reyes - Last Filed: 09/01/18 12:00> History of Present Illness - History of Present Illness History of Present Illness: Harshal Reyes D.O. PGY-3, Internal Medicine Resident, Infectious Disease Consultation Note 62 year old female with a PMH of COPD on home O2, stage IV NSCLC now on chemo and radation, last chemo 08/24, who presented to [facility] [place] after she was sent by her oncologist when she was found to be lethargic and hypoxic in the office. Infectious disease consultation was requested for sepsis. Patient was seen and examined at bedside. Patient relates how she has not been feeling well for some days. Patient went to her scheduled chemotherapy infusion at Dr. Wood's office and Dr. Weston wanted her to come to the ER immediately, wouldn't let her leave unless someone could drive her or she was going to call an ambulance because she looked so ill. Patient states that she does have some coughing, although states not purulent. Patient also relates how since her chemotherapy she has had this issue with her nose where she says there was a black spot and she realized that she had a hole in her septum. Denies any pain and states it kind of makes breathing easier for her. Overall feeling somewhat better right now. Review of Systems - Review of Systems All systems: reviewed and no additional remarkable complaints except (as per HPI) Past Patient History - Infectious Disease Hx of Infectious Diseases: None - Past Social History Smoking Status: Former Smoker - CARDIAC Hx Cardia Arrhythmia: Yes Hx Circulatory Problems: Yes - PULMONARY Hx Respiratory Disorders: Yes Hx Lung Cancer: Yes (on chemo) - NEUROLOGICAL Hx Neurological Disorder: No - HEENT Hx HEENT Problems: No - RENAL Hx Chronic Kidney Disease: Yes Hx Renal Failure: Yes - ENDOCRINE/METABOLIC Hx Endocrine Disorders: No - HEMATOLOGICAL/ONCOLOGICAL Hx Blood Disorders: Yes Hx Blood Transfusions: Yes - INTEGUMENTARY Hx Dermatological Problems: No - MUSCULOSKELETAL/RHEUMATOLOGICAL Hx Falls: No - GASTROINTESTINAL Hx Gastrointestinal Disorders: No - GENITOURINARY/GYNECOLOGICAL Hx Genitourinary Disorders: No - PSYCHIATRIC Hx Substance Use: No - SURGICAL HISTORY Other/Comment: R chest port - ANESTHESIA Hx Anesthesia: Yes Hx Anesthesia Reactions: No Hx Malignant Hyperthermia: No Meds Allergies/Adverse Reactions: Allergies Allergy/AdvReac Type Severity Reaction Status Date / Time No Known Allergies Allergy Verified 08/10/18 13:50 - Medications Medications: Current Medications Acetaminophen (Tylenol 325mg Tab) 650 mg PO Q4H PRN PRN Reason: Fever >100.4 F Carvedilol (Coreg) 3.125 mg PO BID [facility] Last Admin: 09/01/18 09:07 Dose: 3.125 mg Famotidine (Pepcid) 20 mg IVP DAILY [facility] Furosemide (Lasix) 20 mg IVP DAILY [facility] Last Admin: 09/01/18 09:04 Dose: 20 mg Heparin Sodium (Porcine) (Heparin) 5,000 units SC Q12 [facility]; Protocol Sodium Chloride (Sodium Chloride 0.45%) 1,000 mls @ 60 mls/hr IV [id number] [facility] Last Admin: 08/31/18 23:41 Dose: 60 mls/hr Doxycycline Hyclate 100 mg/ (Sodium Chloride) 100 mls @ 100 mls/hr IVPB Q12 [facility]; Protocol Last Admin: 09/01/18 09:00 Dose: 100 mls/hr Vancomycin HCl (Vancomycin 1gm) 1 gm in 250 mls @ 167 mls/hr IVPB DAILY [facility]; Protocol Last Admin: 09/01/18 11:07 Dose: 167 mls/hr Ipratropium Lorenzo (Atrovent) 0.5 mg IH TIDRESP [facility] Last Admin: 09/01/18 08:05 Dose: 0.5 mg Levalbuterol HCl (Xopenex) 1.25 mg IH TIDRESP [facility] Last Admin: 09/01/18 08:05 Dose: 1.25 mg Methylprednisolone (Solu-Medrol) 30 mg IVP Q12 [facility] Last Admin: 09/01/18 09:01 Dose: 30 mg Metoprolol Tartrate (Lopressor) 12.5 mg PO BRKDIN [facility] Last Admin: 09/01/18 08:35 Dose: 12.5 mg Dextroamphetamine/Amphetamine [ Adderall 20 Mg Tablet] (Home Med) 20 mg PO TID [facility] Last Admin: 09/01/18 09:11 Dose: Not Given Oxycodone HCl (Oxycodone Immediate Release Tab) 10 mg PO Q6H PRN PRN Reason: Pain, moderate (4-7) Last Admin: 09/01/18 03:40 Dose: 10 mg Physical Exam - Constitutional Appears: Non-toxic, No Acute Distress, Chronically Ill - Head Exam Head Exam: ATRAUMATIC, NORMOCEPHALIC - Eye Exam Eye Exam: EOMI. absent: Scleral icterus - ENT Exam ENT Exam: Mucous Membranes Moist Additional comments: perforated septum noted with dark edge - Neck Exam Neck exam: Positive for: Normal Inspection - Respiratory Exam Respiratory Exam: Rhonchi - Cardiovascular Exam Cardiovascular Exam: +S1, +S2. absent: Gallop, Rubs - GI/Abdominal Exam GI & Abdominal Exam: Normal Bowel Sounds, Soft. absent: Tenderness - Extremities Exam Extremities exam: Negative for: pedal edema - Neurological Exam Neurological exam: Alert, Oriented x3 - Skin Skin Exam: Dry, Warm Results - Vital Signs Recent Vital Signs: Last Vital Signs Temp 98.1 F 09/01/18 06:00 Pulse 106 H 09/01/18 09:07 Resp 19 09/01/18 06:00 BP 113/79 09/01/18 09:07 Pulse Ox 98 08/31/18 22:10 - Labs Result Diagrams: 08/31/18 18:10 08/31/18 18:10 Labs: Laboratory Results - last 24 hr 08/31/18 08/31/18 08/31/18 18:10 18:10 18:10 WBC 10.2 D RBC 3.32 L Hgb 9.4 L Hct 29.8 L MCV 89.8 MCH 28.3 MCHC 31.5 RDW 17.4 H Plt Count 195 MPV 8.4 Neut % (Auto) 83.1 H Lymph % (Auto) 6.3 L Thurston % (Auto) 9.5 H Eos % (Auto) 0.9 L Baso % (Auto) 0.2 Lymph # (Auto) 0.6 L [place] # (Auto) 1.0 H Eos # (Auto) 0.1 Baso # (Auto) 0.02 Absolute Neuts (auto) 8.50 H PT 15.5 H INR 1.40 APTT 34.9 pO2 VBG pH VBG pCO2 VBG HCO3 VBG Total CO2 VBG O2 Sat (Calc) VBG Base Excess VBG Potassium Sodium 132 Chloride 88 L Glucose Lactate FiO2 Potassium 3.5 L Carbon Dioxide 33 Anion Gap 14 BUN 17 Creatinine 1.2 Est GFR ( Amer) 55 Est GFR (Non-Af Amer) 46 Random Glucose 91 Calcium 9.7 Total Bilirubin 1.1 AST 28 ALT 7 Alkaline Phosphatase 87 Total Creatine Kinase < 20 L Troponin I < 0.01 NT-Pro-B Natriuret Pep 4650 H Total Protein 6.7 Albumin 3.1 Globulin 3.7 Albumin/Globulin Ratio 0.8 L Venous Blood Potassium Urine Color Urine Appearance Urine pH Ur Specific [place] Urine Protein Urine Glucose (UA) Urine Ketones Urine Blood Urine Nitrate Urine Bilirubin Urine Urobilinogen Ur Leukocyte Esterase Urine RBC Urine WBC Ur Epithelial Cells Amorphous Sediment Urine Bacteria Fine Granular Casts Coarse Granular Casts Urine Other Influenza Typ A,B (EIA) 08/31/18 08/31/18 09/01/18 18:10 18:10 09:50 WBC RBC Hgb Hct MCV MCH MCHC RDW Plt Count MPV Neut % (Auto) Lymph % (Auto) Thurston % (Auto) Eos % (Auto) Baso % (Auto) Lymph # (Auto) Thur[place] # (Auto) Eos # (Auto) Baso # (Auto) Absolute Neuts (auto) PT INR APTT pO2 37 VBG pH 7.43 VBG pCO2 53.0 VBG HCO3 35.2 H VBG Total CO2 36.8 H VBG O2 Sat (Calc) 77.8 H VBG Base Excess 9.1 H VBG Potassium 3.5 L Sodium 130.0 L Chloride 94.0 L Glucose 92 Lactate 0.8 FiO2 21.0 Potassium Carbon Dioxide Anion Gap BUN Creatinine Est GFR ( Amer) Est GFR (Non-Af Amer) Random Glucose Calcium Total Bilirubin AST ALT Alkaline Phosphatase Total Creatine Kinase Troponin I NT-Pro-B Natriuret Pep Total Protein Albumin Globulin Albumin/Globulin Ratio Venous Blood Potassium 3.5 L Urine Color Yellow Urine Appearance Clear Urine pH 6.0 Ur Specific [place] >= 1.030 Urine Protein 30 H Urine Glucose (UA) Negative Urine Ketones Negative Urine Blood Negative Urine Nitrate Negative Urine Bilirubin Negative Urine Urobilinogen 0.2 Ur Leukocyte Esterase Negative Urine RBC 1 - 3 H Urine WBC 2 - 5 Ur Epithelial Cells 6 - 8 H Amorphous Sediment Few Urine Bacteria Many Fine Granular Casts 0 - 2 Coarse Granular Casts Small Urine Other Uyeast Influenza Typ A,B (EIA) Negative for flu a/b Assessment & Plan - Assessment and Plan (Free Text) Assessment: 62 year old female with a PMH of COPD on home O2, stage IV NSCLC now on chemo and radation, last chemo 08/24, who presented to [facility] [place] after she was sent by her oncologist when she was found to be lethargic and hypoxic in the office. Infectious disease consultation was requested for sepsis. Plan: Sepsis with fever and tachycardia (2/4) with likely post obstructive/HCAP Stage IV NSCLC on chemo and radiation COPD Cultures ordered Strep pneumo, legionella and procal ordered CXR reviewed, per read appears somewhat improved Likely not urinary source given UA but will culture urine MRSA nares ordered Will empirically start on doxy, merrem and vancomycin dosed for CrCl of 35 No more fevers since admission Given "black" output/spot in nose and her current immunocompromised status, will request ENT consultation to evaluate the rest of the nasopharynx We will follow with you Patient was seen and examined and case to be discussed with attending physician Thank you for the pleasure of participating in the care of this patient - Date & Time Date: 09/01/18 Time: 10:55 <Eliezer Stuart - Last Filed: 09/01/18 13:04> Meds - Medications Medications: Current Medications Acetaminophen (Tylenol 325mg Tab) 650 mg PO Q4H PRN PRN Reason: Fever >100.4 F Famotidine (Pepcid) 20 mg IVP DAILY [facility] Furosemide (Lasix) 20 mg IVP DAILY [facility] Last Admin: 09/01/18 09:04 Dose: 20 mg Heparin Sodium (Porcine) (Heparin) 5,000 units SC Q12 [facility]; Protocol Sodium Chloride (Sodium Chloride 0.45%) 1,000 mls @ 60 mls/hr IV .[id number] [facility] Last Admin: 08/31/18 23:41 Dose: 60 mls/hr Doxycycline Hyclate 100 mg/ (Sodium Chloride) 100 mls @ 100 mls/hr IVPB Q12 [facility]; Protocol Last Admin: 09/01/18 09:00 Dose: 100 mls/hr Vancomycin HCl (Vancomycin 1gm) 1 gm in 250 mls @ 167 mls/hr IVPB DAILY [facility]; Protocol Last Admin: 09/01/18 11:07 Dose: 167 mls/hr Meropenem/Sodium Chloride (Merrem Iv 500 Mg/Ns 50 Ml) 500 mg in 50 mls @ 100 mls/hr IVPB Q12 [facility]; Protocol Stop: 09/08/18 22:01 Ipratropium Lorenzo (Atrovent) 0.5 mg IH TIDRESP [facility] Last Admin: 09/01/18 08:05 Dose: 0.5 mg Levalbuterol HCl (Xopenex) 1.25 mg IH TIDRESP [facility] Last Admin: 09/01/18 08:05 Dose: 1.25 mg Methylprednisolone (Solu-Medrol) 30 mg IVP Q12 [facility] Last Admin: 09/01/18 09:01 Dose: 30 mg Metoprolol Tartrate (Lopressor) 25 mg PO BID [facility] Dextroamphetamine/Amphetamine [ Adderall 20 Mg Tablet] (Home Med) 20 mg PO TID [facility] Last Admin: 09/01/18 09:11 Dose: Not Given Oxycodone HCl (Oxycodone Immediate Release Tab) 10 mg PO Q6H PRN PRN Reason: Pain, moderate (4-7) Last Admin: 09/01/18 03:40 Dose: 10 mg Results - Vital Signs Recent Vital Signs: Last Vital Signs Temp 97.2 F L 09/01/18 12:00 Pulse 101 H 09/01/18 12:00 Resp 20 09/01/18 12:00 BP 103/66 09/01/18 12:00 Pulse Ox 98 08/31/18 22:10 - Labs Result Diagrams: 08/31/18 18:10 08/31/18 18:10 Labs: Laboratory Results - last 24 hr 08/31/18 08/31/18 08/31/18 18:10 18:10 18:10 WBC 10.2 D RBC 3.32 L Hgb 9.4 L Hct 29.8 L MCV 89.8 MCH 28.3 MCHC 31.5 RDW 17.4 H Plt Count 195 MPV 8.4 Neut % (Auto) 83.1 H Lymph % (Auto) 6.3 L Thurston % (Auto) 9.5 H Eos % (Auto) 0.9 L Baso % (Auto) 0.2 Lymph # (Auto) 0.6 L [place] # (Auto) 1.0 H Eos # (Auto) 0.1 Baso # (Auto) 0.02 Absolute Neuts (auto) 8.50 H PT 15.5 H INR 1.40 APTT 34.9 pO2 VBG pH VBG pCO2 VBG HCO3 VBG Total CO2 VBG O2 Sat (Calc) VBG Base Excess VBG Potassium Sodium 132 Chloride 88 L Glucose Lactate FiO2 Potassium 3.5 L Carbon Dioxide 33 Anion Gap 14 BUN 17 Creatinine 1.2 Est GFR ( Amer) 55 Est GFR (Non-Af Amer) 46 Random Glucose 91 Calcium 9.7 Total Bilirubin 1.1 AST 28 ALT 7 Alkaline Phosphatase 87 Total Creatine Kinase < 20 L Troponin I < 0.01 NT-Pro-B Natriuret Pep 4650 H Total Protein 6.7 Albumin 3.1 Globulin 3.7 Albumin/Globulin Ratio 0.8 L Venous Blood Potassium Urine Color Urine Appearance Urine pH Ur Specific [place] Urine Protein Urine Glucose (UA) Urine Ketones Urine Blood Urine Nitrate Urine Bilirubin Urine Urobilinogen Ur Leukocyte Esterase Urine RBC Urine WBC Ur Epithelial Cells Amorphous Sediment Urine Bacteria Fine Granular Casts Coarse Granular Casts Urine Other Influenza Typ A,B (EIA) 08/31/18 08/31/18 09/01/18 18:10 18:10 09:50 WBC RBC Hgb Hct MCV MCH MCHC RDW Plt Count MPV Neut % (Auto) Lymph % (Auto) [place] % (Auto) Eos % (Auto) Baso % (Auto) Lymph # (Auto) [place] # (Auto) Eos # (Auto) Baso # (Auto) Absolute Neuts (auto) PT INR APTT pO2 37 VBG pH 7.43 VBG pCO2 53.0 VBG HCO3 35.2 H VBG Total CO2 36.8 H VBG O2 Sat (Calc) 77.8 H VBG Base Excess 9.1 H VBG Potassium 3.5 L Sodium 130.0 L Chloride 94.0 L Glucose 92 Lactate 0.8 FiO2 21.0 Potassium Carbon Dioxide Anion Gap BUN Creatinine Est GFR ( Amer) Est GFR (Non-Af Amer) Random Glucose Calcium Total Bilirubin AST ALT Alkaline Phosphatase Total Creatine Kinase Troponin I NT-Pro-B Natriuret Pep Total Protein Albumin Globulin Albumin/Globulin Ratio Venous Blood Potassium 3.5 L Urine Color Yellow Urine Appearance Clear Urine pH 6.0 Ur Specific [place] >= 1.030 Urine Protein 30 H Urine Glucose (UA) Negative Urine Ketones Negative Urine Blood Negative Urine Nitrate Negative Urine Bilirubin Negative Urine Urobilinogen 0.2 Ur Leukocyte Esterase Negative Urine RBC 1 - 3 H Urine WBC 2 - 5 Ur Epithelial Cells 6 - 8 H Amorphous Sediment Few Urine Bacteria Many Fine Granular Casts 0 - 2 Coarse Granular Casts Small Urine Other Uyeast Influenza Typ A,B (EIA) Negative for flu a/b Attending/Attestation - Attestation I have personally seen and examined this patient.: Yes I have fully participated in the care of the patient.: Yes I have reviewed all pertinent clinical information: Yes Notes (Text): 09/01/18 13:03 SEPSIS HCAP VIRIDIANA/DOX / VANCO
--- NOTE | 2018-09-01 12:40 | CON ---
DATE: 09/01/2018 PULMONARY CONSULTATION NOTE REFERRING PHYSICIAN: Christine Wood MD REASON FOR CONSULT: COPD, cough, shortness of breath. HISTORY OF PRESENT ILLNESS: This is a 62-year-old female with a past medical history significant for COPD, pulmonary hypertension, stage IV squamous cell carcinoma, chronic anemia, acute renal failure, ADD, who presented to the emergency room for evaluation of low oxygen saturation. The patient was at Dr. Wood's office for routine chemotherapy when she was noted to have saturation in the 60s on the room air. She was referred to the emergency department for evaluation. The patient does report that she had worsening shortness of breath and productive cough for about 2 days. The patient also is on oxygen at home and was currently receiving chemotherapy and radiation, last chemotherapy date was August 24, 2018. Today, the patient is seen sitting up in bed. Reports she still has shortness of breath and productive cough, some nasal congestion. No nausea, vomiting, diarrhea, abdominal pain and chest pain reported. PAST MEDICAL HISTORY: Chronic obstructive pulmonary disease, stage IV squamous cell carcinoma on chemotherapy and radiation with radiation to left adrenal gland, hypertension, acute renal failure, chronic anemia, ADD and port placement. FAMILY HISTORY: No significant cardiopulmonary disease reported. SOCIAL HISTORY: Former smoker, no EtOH abuse, no illicit drug use. ALLERGIES: NO KNOWN ALLERGIES. MEDICATIONS: Reviewed. Tylenol 650 mg every 4 hour p.r.n. fever greater than 100.4, Coreg 3.125 mg twice a day, doxycycline 100 mg every 12 hours, Pepcid 10 mg IV push daily, Lasix 20 mg IV push daily, Atrovent 0.5 mg inhalation 3 three times a day, Xopenex 1.25 mg inhalation 3 times a day, Solu-Medrol 30 mg IV push every 12 hours, Lopressor 12.5 mg at breakfast and at dinner, Adderall 20 mg 3 times a day, oxycodone 10 mg every 6 hours p.r.n., sodium chloride 0.45% 1000 mL at 60 mL per hour and vancomycin 1 g daily. REVIEW OF SYSTEMS: The patient reports having periods of shortness of breath, having productive cough, nasal congestion. No headache, chest pain, abdominal pain, nausea, vomiting, diarrhea, leg pain or leg swelling reported. PHYSICAL EXAMINATION GENERAL: No acute distress. VITAL SIGNS: Blood pressure 113/79, pulse 106, temperature 98.1 and oxygen saturation 98% on nasal cannula. HEENT: Moist mucous membranes. Crowded airway. Mallampati score of 4. NECK: Supple. No JVD. RESPIRATORY: Few scattered rhonchi. CARDIOVASCULAR: S1 and S2. ABDOMEN: Soft and nontender. No distention. No organomegaly. EXTREMITIES: No bilateral lower extremity edema. NEUROLOGIC: Awake, alert and verbal. Follows commands. LABORATORY DATA: Reviewed. WBC 10.2, RBC 3.32, hemoglobin 9.4, hematocrit 29.8 and platelets 195. PT 15.5, INR 1.4 and APTT 34.9. PO2 of 37, venous blood gas pH 7.43, venous blood gas pCO2 of 53, and FiO2 of 21. Sodium 132, potassium 3.5, chloride 88, carbon dioxide 33, anion gap 14, BUN 17, creatinine 1.2, GFR 46, random glucose 91, calcium 9.7, total bilirubin 1.1, AST 28, ALT 7, alkaline phosphatase 87, total creatine kinase less than 20, troponin less than 0.01, proBNP 4650, total protein 6.7, albumin 3.1, globulin 3.7 and albumin-globulin ratio 0.8. Venous blood potassium 3.5. Urinalysis shows urine protein 30, urine RBCs 1 to 3 and urine epithelial cells 6 to 8. Influenza type A and B negative. Chest x-ray shows decrease in left pleural effusion, improved aeration in left lower lobe. EKG; sinus tachycardia, nonspecific T-wave abnormality. 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 Continue inhaled bronchodilators. We will place the patient on low dose heparin due to anemia for deep venous thrombosis prophylaxis. We will repeat CBC in the morning. Continue antibiotic therapy, current steroid dosing. We will increase Pepcid to 20 mg for gastric prophylaxis. We suspect sleep apnea in this patient. We recommend the patient have sleep study as outpatient. We also recommend pulmonary function test to asses chronic lung disease. Sleep apnea precaution and head of bed elevated at 45 degrees. This patient was seen and examined with Dr. Hector. Discussed assessment and plan as described above. This patient was seen and examined with Prudence Derek, nurse practitioner. Discussed assessment and plan as described above. Thank you for this consult and we will follow with you. Derek Ellis APN Nikita Hector MD
[2018-09-01] MEDS: Sodium Chloride 0.45% 1,000 ML IV SCH (17:44)
[2018-09-01] MEDS ORDERED: Sucralfate 1 gm/10 ml Oral Susp UD PO STA (19:25)
--- NOTE | 2018-09-01 20:06 | HP ---
DATE OF EXAM: 09/01/2018 HISTORY OF PRESENT ILLNESS: Ms. Quinn is a 62-year-old female sent to the ED from my office because of increased shortness of breath, oxygen desaturation to 60s. She has stage IV squamous cell lung cancer. She has a large mass on the left side of the lung, adrenal mets. She has progressive disease. She received single-agent chemotherapy with gemcitabine and she could not tolerate carboplatin, which was held because she had acute renal failure with one dose of carbo. Subsequently, chemotherapy was changed to Abraxane, which she continues to get.She has progression of disease on Abraxane also. She has home oxygen, but she usually does not use oxygen. She has baseline shortness of breath. She has end-stage COPD with poor lung reserve. She completed her radiation to left side of the lung recently. She had hemoptysis, which resolved. No fevers. No cough. No chills or rigors. She also has sinus tachycardia. She has been evaluated by Dr. Mathews in the past, was advised metoprolol. She is noncompliant with her medications. I am not sure whether she was taking metoprolol at home. She does not take bronchodilators. She has nebulizer at home. PAST MEDICAL HISTORY: COPD, chronic smoker, heavy smoker in the past, ADD, history of acute renal failure resolved , blood transfusion. PAST SURGICAL HISTORY: Biopsy of left adrenal met. ALLERGIES: NO KNOWN DRUG ALLERGIES. PERSONAL HISTORY: Heavy smoker former. Lives at home with teenage son. HOME MEDICATIONS: Coreg, Lasix, potassium, Adderall, and oxycodone p.r.n. REVIEW OF SYSTEMS: As per HPI. Rest of 12-point review of systems reviewed negative. PHYSICAL EXAMINATION: GENERAL: Respiratory distress improved, tachycardia improved. VITAL SIGNS: Heart 98 per minute, blood pressure 110/70, and pulse ox is 90% on oxygen by nasal cannula. HEENT: Pallor positive. NECK: No lymphadenopathy. CHEST: Air entry decreased on the left side. No rhonchi. No crepitations. ABDOMEN: Soft and nontender. No hepatosplenomegaly. EXTREMITIES: Slight bilateral ankle edema. COUNTER TACKER : alert, oriented x3 LABORATORY DATA: White count 10, hemoglobin 9.4, hematocrit 29.8, and platelet 195. Sodium 132, potassium 3.5, BUN 17, and creatinine 1.2. LFTs within normal limits. BNP 4650. ASSESSMENT: 1. Stage IV lung cancer. 2. Respiratory distress. 3. Possible postobstructive pneumonia on the left side. 4. Hypoxia. 5. Iron-deficiency anemia. 6. Attention deficit disorder. 7. Chronic pain. PLAN: Admit to telemonitoring. IV antibiotic Zosyn one dose given in the ED. We will consult Dr. Stuart for post-obstructive pneumonia, status post recent radiation to the left side of the lung. Bronchodilators Xopenex t.i.d. and p.r.n., ipratropium t.i.d., Lasix 20 mg IV daily, and Pepcid 20 mg IV daily. For pain, oxycodone 10 mg every 6 hours p.r.n. We will continue beta-codi, metoprolol 25 mg p.o. b.i.d., Tylenol 650 every 4 hours p.r.n., IV fluids at 60 mL an hour, and heart-healthy diet. We will consult Dr. Mathews for tachycardia, Dr. Hector for COPD and hypoxia, and Dr. Stuart. Discussed with Ms. Quinn. Discussed with the staff nurse. Christine Israel, MD MTDD
--- NOTE | 2018-09-01 20:43 | CON ---
DATE: 09/01/2018 CONSULT SERVICE: Cardiology. REASON FOR CONSULTATION: Tachycardia, history of lung CA and cardiac evaluation. BRIEF CLINICAL HISTORY: This is a 62-year-old female with a past medical history significant for COPD on home oxygen, non-small cell cancer, status post chemo, status post radiation, last chemotherapy on 08/24/2018, history of tachycardia, came in with shortness of breath and palpitation. Denies any chest pain. The patient was seen in Dr. Wood's office and it was for a scheduled chemotherapy, but the patient was with shortness of breath and heart rate was assessed and the patient was advised to come to the ER. PAST MEDICAL HISTORY: Significant for biopsy of the lung as well as Port-A-Cath placement, found to be non-small cell cancer diagnosed in 06/2017, history of hemoptysis on 12/2017, lung CA, anemia, COPD, and history of hemoptysis in the past. PAST SURGICAL HISTORY: Significant for lung biopsy as a Port-A-Cath placement. SOCIAL HISTORY: Heavy smoker in the past, quit after diagnosed with lung CA. CURRENT MEDICATIONS: The patient was on oxycodone, potassium chloride, metoprolol tartrate, methylprednisolone and dexamethasone as well as Coreg. RECENT CARDIAC WORKUP: As follows; the patient had MUGA scan done on 02/18/2018, that shows ejection fraction of 35%, moderate LV dysfunction, diffuse hypokinesis and normal RV function. The patient had an echocardiography done on last admission on 07/29/2018 that revealed ejection fraction of 55%, right ventricle is moderately dilated, right atrium is normal. Catheter noted in the right atrium, mild aortic regurgitation, mild mitral regurgitation, moderate tricuspid regurgitation, RV systolic pressure 57. REVIEW OF SYSTEMS: As per HPI. PHYSICAL EXAMINATION: GENERAL: Height of the patient 4 feet 10 inches. Weight of the patient 94 pounds. Body mass index 18 kg/m2. VITAL SIGNS: Temperature afebrile. Heart rate 106 and blood pressure 113/79. HEENT: PERRLA. Extraocular muscles intact. NECK: Supple. No carotid bruit. No thyromegaly. CHEST: Clear to auscultation. HEART: S1 and S2, regular. ABDOMEN: Soft. EXTREMITIES: Clubbing and cyanosis negative. LABORATORY DATA: Blood workup as follows; WBC 10.2, hemoglobin 9.4, hematocrit 29.8 and platelet count 195. Chemistry shows sodium 130, potassium 3.5, chloride 88, carbon dioxide 33, anion gap of 14, BUN 17 and creatinine 1.2. EKG shows sinus tachycardia. IMPRESSION: A 62-year-old female with past medical history significant for lung cancer diagnosed, chronic obstructive pulmonary disease, status post Port-A-Cath, status post chemotherapy, last chemo on 08/24/2018. Yesterday came in and was scheduled for chemo, found to be tachycardic and shortness of breath and moved to here. The patient is on home oxygen 2 liters. The patient was suggested to take metoprolol, the patient was taking Coreg and will stop metoprolol. RECOMMENDATION: We will start metoprolol, discontinue Coreg, avoid two beta-blockers, metoprolol will probably be more effective in controlling the heart rate. We will increase to 25 p.o. b.i.d., 12.5 is started, but we will put 25 b.i.d. as blood pressure is tolerated. We will discontinue Coreg. We will get TSH. Further recommendation depending on hospital course. Like I mentioned, we will discontinue Coreg and we will put 25 mg of metoprolol b.i.d. We will follow with you. Thank you Dr. Wood, for providing us the opportunity in taking care of the patient, Elsa Quinn. Nikita Mathews MD
[2018-09-01] MEDS: MEROPENEM 500 MG in NS 500 MG/50 ML BAG IVPB SCH (22:15)
--- NOTE | 2018-09-01 22:58 | CON ---
DATE: 09/01/2018 HISTORY OF PRESENT ILLNESS: Chronic obstructive pulmonary disease individual, who patient of Dr. Wood, who was admitted and recently has been on nasal cannula O2, but has noted a dark black spot in nose. The patient denies active bleeding, has chronic small amount of crusting and bleeding at times, uses saline, but has recently noted this black spot. PHYSICAL EXAMINATION: HEENT: Nasal endoscopy 1 cm septal perforation with crusting and no active bleeding with small amount of dry clot in the posterior inferior edge, patent nasal airway with slightly enlarged turbinates,but patency noted. ASSESSMENT AND PLAN: It was discussed with the patient that the black spot is a septal perforation as a diagnosis. Continued care with saline irrigation and [place] gel, occasionally using bacitracin along the edges of the nasal cannula even discussed the possibility of trimming nasal cannula at times if irritating the nose. The patient will follow up in the office with Dr. Murphy Kennedy as needed. No further treatment needed at this time. Murphy Kennedy DO
[2018-09-02] MEDS: oxyCODONE 10 mg Immediate Release Tab PO PRN ×3 (03:07→15:43)
--- NOTE | 2018-09-02 07:05 | CP.PCM.PN ---
Subjective - Date & Time of Evaluation Date of Evaluation: 09/02/18 Time of Evaluation: 06:15 - Subjective Subjective: Awake, alert, sitting in bed,no distress Reason for consultation and follow up: Cardiac evaluation of tachycardia, history of COPD on home oxygen, non-small cell carcinoma with radiation and chemotherapy Seen and examined by me and Dr. Mathews Objective - Vital Signs/Intake and Output Vital Signs (last 24 hours): Temp Pulse Resp BP Pulse Ox 97.8 F 110 H 19 106/73 98 09/01/18 18:00 09/01/18 18:20 09/01/18 18:00 09/01/18 18:20 08/31/18 22:10 - Medications Medications: Current Medications Acetaminophen (Tylenol 325mg Tab) 650 mg PO Q4H PRN PRN Reason: Fever >100.4 F Alprazolam (Xanax) 0.5 mg PO TID PRN; Protocol PRN Reason: Anxiety Last Admin: 09/02/18 03:29 Dose: 0.5 mg Famotidine (Pepcid) 20 mg IVP BID [facility] Furosemide (Lasix) 20 mg IVP DAILY [facility] Last Admin: 09/01/18 09:04 Dose: 20 mg Heparin Sodium (Porcine) (Heparin) 5,000 units SC Q12 [facility]; Protocol Last Admin: 09/01/18 22:14 Dose: Not Given Sodium Chloride (Sodium Chloride 0.45%) 1,000 mls @ 60 mls/hr IV .[id number] [facility] Last Admin: 09/01/18 17:44 Dose: Not Given Doxycycline Hyclate 100 mg/ (Sodium Chloride) 100 mls @ 100 mls/hr IVPB Q12 [facility]; Protocol Last Admin: 09/01/18 22:15 Dose: Not Given Vancomycin HCl (Vancomycin 1gm) 1 gm in 250 mls @ 167 mls/hr IVPB DAILY [facility]; Protocol Last Admin: 09/01/18 11:07 Dose: 167 mls/hr Meropenem/Sodium Chloride (Merrem Iv 500 Mg/Ns 50 Ml) 500 mg in 50 mls @ 100 mls/hr IVPB Q12 [facility]; Protocol Stop: 09/08/18 22:01 Last Admin: 09/01/18 22:15 Dose: Not Given Ipratropium [place] (Atrovent) 0.5 mg IH TIDRESP [facility] Last Admin: 09/01/18 19:20 Dose: Not Given Levalbuterol HCl (Xopenex) 1.25 mg IH TIDRESP [facility] Last Admin: 09/01/18 19:20 Dose: Not Given Methylprednisolone (Solu-Medrol) 30 mg IVP Q12 [facility] Last Admin: 09/01/18 22:15 Dose: Not Given Metoprolol Tartrate (Lopressor) 25 mg PO BID [facility] Last Admin: 09/01/18 18:20 Dose: Not Given Oxycodone HCl (Oxycodone Immediate Release Tab) 10 mg PO Q6H PRN PRN Reason: Pain, moderate (4-7) Last Admin: 09/02/18 03:07 Dose: 10 mg Sucralfate (Carafate Oral Susp) 1 gm PO TID [facility] - Labs Labs: 08/31/18 18:10 08/31/18 18:10 PT 15.5 SECONDS (9.4-12.5) H 08/31/18 18:10 INR 1.40 08/31/18 18:10 APTT 34.9 Seconds (26.9-38.3) 08/31/18 18:10 - Constitutional Appears: Non-toxic, No Acute Distress - Head Exam Head Exam: NORMAL INSPECTION, NORMOCEPHALIC - Eye Exam Eye Exam: Normal appearance Pupil Exam: NORMAL ACCOMODATION - ENT Exam ENT Exam: Mucous Membranes Moist - Respiratory Exam Respiratory Exam: Decreased Breath Sounds, Clear to Ausculation Bilateral, NORMAL BREATHING PATTERN - Cardiovascular Exam Cardiovascular Exam: +S1, +S2 Additional comments: right chest claudia cath - GI/Abdominal Exam GI & Abdominal Exam: Soft, Normal Bowel Sounds - Extremities Exam Extremities Exam: Full ROM, Normal Capillary Refill - Neurological Exam Neurological Exam: Alert, Awake, Oriented x3 - Psychiatric Exam Psychiatric exam: Normal Affect, Normal Mood - Skin Skin Exam: Dry, Normal Color, Warm Assessment and Plan - Assessment and Plan (Free Text) Assessment: A 62 year old female who came in to the ER due to low oxygen saturation while at doctors office. In ER found to be tachycardiac. History of COPD, non small cell cancer,currently on chemo and radiation, last chemotherapy was 08/24/18, hemoptysis, tachycardia, anemia, heavy smoker in the past quit after diagnosis of lung cancer. MUGA scan done on 02/18/18 showed LVEF of 35% moderate LV dysfunction and diffuse hypokinesis. Echo done on 07/29/18 and showed LVEF of 55%,moderately dilated RV, mild AR/MR, moderate TR, RVSP 57mmHg. She was taking Coreg at home and changed to Metoprolol. Plan: Complaining of pain, PRN Oxycodone given No distress Heart rate still at 100-110's, tachycardia Will increase dose of Lopressor Blood pressure controlled On Lasix 20 mg daily,Heparin 5000 units SQ every 8 hours Solumedrol 30 mg every 12 hours, Lopressor 50 mg BID Continue current treatment Continue current medications Will follow up Plan and treatment discussed with Dr. Mathews
[2018-09-02] MEDS: Levalbuterol 1.25 MG/3 ML Inhal Soln UD IH SCH ×3 (07:36→19:41)
[2018-09-02] MEDS: Ipratropium 0.02% Inhal Soln (0.5 mg/2.5 ml) UD IH SCH ×3 (07:36→19:41)
[2018-09-02] MEDS: Sodium Chloride 0.45% 1,000 ML IV SCH (08:06)
[2018-09-02 08:40] VITALS: RESP 20
[2018-09-02 09:02] LABS: ALB/GLOB RATIO 0.9 (1.1-1.8); ALBUMIN 3.1 g/dL (3.0-4.8); CALCIUM 9.3 mg/dL (8.4-10.5)
[2018-09-02] MEDS: MethylPREDNISolone 40 mg Vial IVP SCH ×2 (09:43→21:58)
[2018-09-02] MEDS: Sucralfate 1 gm/10 ml Oral Susp UD PO SCH ×3 (09:44→17:32)
[2018-09-02] MEDS: Vancomycin 1gm in NS 250ml 1 GM/250 ML BAG IVPB SCH (10:02)
[2018-09-02] MEDS ORDERED: Potassium Chloride 20 mEq ER Tab PO ONE (10:03)
[2018-09-02 10:06] LABS: BASO # 0.01 K/mm3 (0.0-2.0); BASO % 0.1 % (0.0-3.0); EOS % 0.2 % (1.5-5.0); HEMOGLOBIN 9.8 g/dL (12.0-16.0); LYMPH # 0.8 (1.2-3.4); LYMPH % 7.3 % (22.0-35.0); MEAN CELL VOLUME 90.2 fl (80.0-105.0); MEAN CORPUSCULAR HEMOGLOBIN 28.3 pg (25.0-35.0); MEAN CORPUSCULAR HGB CONC 31.4 g/dl (31.0-37.0); MEAN PLATELET VOLUME 8.6 fl (7.0-11.0); MONO # 0.8 (0.1-0.6); RBC 3.46 10^6/uL (3.5-6.1); RED CELL DISTRIBUTION WIDTH 17.4 % (11.5-14.5); WHITE BLOOD COUNT 11.3 10^3/uL (4.5-11.0)
[2018-09-02] MEDS: MEROPENEM 500 MG in NS 500 MG/50 ML BAG IVPB SCH ×2 (10:45→21:56)
[2018-09-02] MEDS: Potassium Chloride 20 mEq ER Tab PO SCH ×2 (13:06→17:33)
--- NOTE | 2018-09-02 15:11 | PN ---
DATE: 09/02/2018 PULMONARY PROGRESS NOTE REFERRING PHYSICIAN: Christine Wood MD SUBJECTIVE: The patient seen in room, no acute distress. No overnight events reported. Does have shortness of breath with exertion. Some cough. No headache, rhinitis, chest pain, abdominal pain, nausea, vomiting, diarrhea, leg pain or leg swelling reported. OBJECTIVE: GENERAL: No acute distress. VITAL SIGNS: Blood pressure 125/85, pulse 113, temperature 97.4 and oxygen saturation 98% on nasal cannula. HEENT: Moist mucous membranes. Crowded airway. Mallampati score of 4. NECK: Supple. No JVD. RESPIRATORY: Few scattered rhonchi. CARDIOVASCULAR: S1 and S2. ABDOMEN: Soft and nontender. No distention. No organomegaly. EXTREMITIES: No bilateral lower extremity edema. NEUROLOGIC: Awake, alert and verbal. Follow commands. MEDICATIONS: Reviewed. Tylenol 650 mg every 4 hour p.r.n. fever greater than 100.4, Xanax 0.5 mg p.o. three times a day p.r.n., doxycycline 100 mg every 12 hours, Pepcid 10 mg twice a day, Lasix 20 mg IV push daily, Lasix 40 mg p.o. daily, Heparin 5000 units subcutaneous every 12 hours, Atrovent 0.5 mg inhalation three times a day, Xopenex 1.25 mg inhalation 3 times a day, meropenem 500 mg every 12 hours, Solu-Medrol 30 mg IV push every 12 hours, metoprolol tartrate 50 mg at dinner, oxycodone 10 mg every 6 hours p.r.n., potassium chloride 20 mEq twice a day, sodium chloride 0.45% 1000 mL at 60 mL per hour, Carafate 1 g three times a day and vancomycin 1 g daily. LABORATORY DATA: Reviewed. WBC 11.3, RBC 3.46, hemoglobin 9.8, hematocrit 31.2 and platelets 277. Sodium 135, potassium 3.5, chloride 93, carbon dioxide 35, anion gap 11, BUN 25, creatinine 1.3, GFR 42, random glucose 106, calcium 9.3, total bilirubin 0.2, AST 34, ALT 13, alkaline phosphatase 94, total protein 6.4, albumin 3.1, globulin 3.3, albumin-globulin ratio 0.9 and procalcitonin 0.42. Blood cultures preliminary no growth after 24 hours. 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 Procalcitonin level negative. Continue inhaled bronchodilators. Continue antibiotic therapy. Continue deep venous thrombosis prophylaxis. We will continue to monitor CBC. The patient noted hypokalemia was given potassium. Today we will monitor labs in the morning. We will start the patient on Cepacol every 3 hours and Singulair at bedtime. Continue gastric prophylaxis. We suspect sleep apnea and this patient recommend this patient have sleep study as outpatient. We recommend full pulmonary function test to asses chronic lung disease. Sleep apnea precaution and head of bed elevated at 45 degrees. This patient was seen and examined with Dr. Hector. Discussed assessment and plan as described above. This patient was seen and examined with Rhonda Reed, nurse practitioner. Discussed assessment and plan as described above. Thank you for this consult and we will follow with you. Derek Ellis APN Nikita Hector MD
--- NOTE | 2018-09-02 16:27 | CP.PCM.PN ---
<Harshal Reyes - Last Filed: 09/02/18 16:18> Subjective - Date & Time of Evaluation Date of Evaluation: 09/02/18 Time of Evaluation: 08:55 - Subjective Subjective: Harshal Reyes D.O. PGY-3, Internal Medicine Resident, Infectious Disease Progress Note 62 year old female with a PMH of COPD on home O2, stage IV NSCLC now on chemo and radation, last chemo 08/24, who presented to [facility] after she was sent by her oncologist when she was found to be lethargic and hypoxic in the office. Infectious disease consultation was requested for sepsis. Patient was seen and examined at bedside. Had issues with discomfort with IV infusions overnight. Ended up refusing all meds last night. Nostalgic. Objective - Vital Signs/Intake and Output Vital Signs (last 24 hours): Temp Pulse Resp BP Pulse Ox 97.4 F L 113 H 20 125/85 98 09/02/18 08:37 09/02/18 08:37 09/02/18 08:37 09/02/18 09:45 09/02/18 12:00 - Medications Medications: Current Medications Acetaminophen (Tylenol 325mg Tab) 650 mg PO Q4H PRN PRN Reason: Fever >100.4 F Alprazolam (Xanax) 0.5 mg PO TID PRN; Protocol PRN Reason: Anxiety Last Admin: 09/02/18 09:43 Dose: 0.5 mg Benzocaine/Menthol (Cepacol Sore Throat) 1 bud MT Q3H [facility] Famotidine (Pepcid) 10 mg PO BID [facility] Last Admin: 09/02/18 09:54 Dose: 10 mg Furosemide (Lasix) 20 mg IVP DAILY [facility] Stop: 09/02/18 23:59 Last Admin: 09/02/18 09:45 Dose: 20 mg Furosemide (Lasix) 40 mg PO DAILY [facility] Heparin Sodium (Porcine) (Heparin) 5,000 units SC Q12 [facility]; Protocol Last Admin: 09/02/18 09:46 Dose: 5,000 units Sodium Chloride (Sodium Chloride 0.45%) 1,000 mls @ 60 mls/hr IV .[id number] [facility] Last Admin: 09/02/18 08:06 Dose: Not Given Doxycycline Hyclate 100 mg/ (Sodium Chloride) 100 mls @ 100 mls/hr IVPB Q12 [facility]; Protocol Last Admin: 09/02/18 14:18 Dose: 100 mls/hr Meropenem/Sodium Chloride (Merrem Iv 500 Mg/Ns 50 Ml) 500 mg in 50 mls @ 100 mls/hr IVPB Q12 [facility]; Protocol Stop: 09/08/18 22:01 Last Admin: 09/02/18 10:45 Dose: 100 mls/hr Ipratropium [place] (Atrovent) 0.5 mg IH TIDRESP [facility] Last Admin: 09/02/18 13:35 Dose: 0.5 mg Levalbuterol HCl (Xopenex) 1.25 mg IH TIDRESP [facility] Last Admin: 09/02/18 13:35 Dose: 1.25 mg Methylprednisolone (Solu-Medrol) 30 mg IVP Q12 [facility] Last Admin: 09/02/18 09:43 Dose: 30 mg Metoprolol Tartrate (Lopressor) 50 mg PO BRKDIN [facility] Montelukast Sodium (Singulair) 10 mg PO HS [facility] Oxycodone HCl (Oxycodone Immediate Release Tab) 10 mg PO Q6H PRN PRN Reason: Pain, moderate (4-7) Last Admin: 09/02/18 15:43 Dose: 10 mg Potassium Chloride (K-Dur 20 Meq Er Tab) 20 meq PO BID [facility] Last Admin: 09/02/18 13:06 Dose: Not Given Sucralfate (Carafate Oral Susp) 1 gm PO TID [facility] Last Admin: 09/02/18 14:12 Dose: 1 gm - Labs Labs: 09/02/18 09:45 09/02/18 08:40 PT 15.5 SECONDS (9.4-12.5) H 08/31/18 18:10 INR 1.40 08/31/18 18:10 APTT 34.9 Seconds (26.9-38.3) 08/31/18 18:10 - Constitutional Appears: Non-toxic, No Acute Distress, Chronically Ill - Head Exam Head Exam: ATRAUMATIC, NORMOCEPHALIC - Eye Exam Eye Exam: EOMI. absent: Scleral icterus - ENT Exam ENT Exam: Mucous Membranes Moist, perforated septum - Neck Exam Neck exam: Positive for: Normal Inspection - Respiratory Exam Respiratory Exam: Rhonchi - Cardiovascular Exam Cardiovascular Exam: +S1, +S2. absent: Gallop, Rubs - GI/Abdominal Exam GI & Abdominal Exam: Normal Bowel Sounds, Soft. absent: Tenderness - Extremities Exam Extremities exam: Negative for: pedal edema - Neurological Exam Neurological exam: Alert, Oriented x3 - Skin Skin Exam: Dry, Warm Assessment and Plan - Assessment and Plan (Free Text) Assessment: 62 year old female with a PMH of COPD on home O2, stage IV NSCLC now on chemo and radation, last chemo 08/24, who presented to [facility] after she was sent by her oncologist when she was found to be lethargic and hypoxic in the office. Infectious disease consultation was requested for sepsis. Plan: Sepsis likely post obstructive/HCAP Stage IV NSCLC on chemo and radiation COPD on home oxygen MRSA nares negative Legionella negative Discontinue vancomycin Continue doxy, merrem day 2 Encouraged compliance with abx Seen by ENT, note reviewed, recs appreciated We will follow with you Patient was seen and examined and case to be discussed with attending physician Thank you for the pleasure of participating in the care of this patient <Eliezer Stuart - Last Filed: 09/02/18 20:52> Objective - Vital Signs/Intake and Output Vital Signs (last 24 hours): Temp Pulse Resp BP Pulse Ox 97.3 F L 122 H 20 111/79 96 09/02/18 17:10 09/02/18 17:32 09/02/18 17:10 09/02/18 17:32 09/02/18 17:10 Intake and Output: 09/02/18 09/03/18 18:59 06:59 Intake Total 1450 Balance 1450 - Medications Medications: Current Medications Acetaminophen (Tylenol 325mg Tab) 650 mg PO Q4H PRN PRN Reason: Fever >100.4 F Alprazolam (Xanax) 0.5 mg PO TID PRN; Protocol PRN Reason: Anxiety Last Admin: 09/02/18 09:43 Dose: 0.5 mg Benzocaine/Menthol (Cepacol Sore Throat) 1 bud MT Q3H [facility] Last Admin: 09/02/18 20:35 Dose: Not Given Famotidine (Pepcid) 10 mg PO BID [facility] Last Admin: 09/02/18 17:32 Dose: 10 mg Furosemide (Lasix) 20 mg IVP DAILY [facility] Stop: 09/02/18 23:59 Last Admin: 09/02/18 09:45 Dose: 20 mg Furosemide (Lasix) 40 mg PO DAILY [facility] Heparin Sodium (Porcine) (Heparin) 5,000 units SC Q12 [facility]; Protocol Last Admin: 09/02/18 09:46 Dose: 5,000 units Sodium Chloride (Sodium Chloride 0.45%) 1,000 mls @ 60 mls/hr IV .[id number] [facility] Last Admin: 09/02/18 08:06 Dose: Not Given Doxycycline Hyclate 100 mg/ (Sodium Chloride) 100 mls @ 100 mls/hr IVPB Q12 [facility]; Protocol Last Admin: 09/02/18 14:18 Dose: 100 mls/hr Meropenem/Sodium Chloride (Merrem Iv 500 Mg/Ns 50 Ml) 500 mg in 50 mls @ 100 mls/hr IVPB Q12 [facility]; Protocol Stop: 09/08/18 22:01 Last Admin: 09/02/18 10:45 Dose: 100 mls/hr Ipratropium [place] (Atrovent) 0.5 mg IH TIDRESP [facility] Last Admin: 09/02/18 19:41 Dose: 0.5 mg Levalbuterol HCl (Xopenex) 1.25 mg IH TIDRESP [facility] Last Admin: 09/02/18 19:41 Dose: 1.25 mg Methylprednisolone (Solu-Medrol) 30 mg IVP Q12 [facility] Last Admin: 09/02/18 09:43 Dose: 30 mg Metoprolol Tartrate (Lopressor) 50 mg PO BRKDIN [facility] Last Admin: 09/02/18 17:32 Dose: 50 mg Montelukast Sodium (Singulair) 10 mg PO HS [facility] Oxycodone HCl (Oxycodone Immediate Release Tab) 10 mg PO Q6H PRN PRN Reason: Pain, moderate (4-7) Last Admin: 09/02/18 15:43 Dose: 10 mg Potassium Chloride (K-Dur 20 Meq Er Tab) 20 meq PO BID [facility] Last Admin: 09/02/18 17:33 Dose: Not Given Sucralfate (Carafate Oral Susp) 1 gm PO TID [facility] Last Admin: 09/02/18 17:32 Dose: 1 gm - Labs Labs: 09/02/18 09:45 09/02/18 08:40 PT 15.5 SECONDS (9.4-12.5) H 08/31/18 18:10 INR 1.40 08/31/18 18:10 APTT 34.9 Seconds (26.9-38.3) 08/31/18 18:10 Attending/Attestation - Attestation I have personally seen and examined this patient.: Yes I have fully participated in the care of the patient.: Yes I have reviewed all pertinent clinical information, including history, physical exam and plan: Yes
[2018-09-02] MEDS: Benzocaine/Menthol (Cepacol) Lozenge MT SCH ×3 (16:41→20:35)
[2018-09-03] MEDS: Benzocaine/Menthol (Cepacol) Lozenge MT SCH ×4 (00:12→13:22)
[2018-09-03] MEDS: oxyCODONE 10 mg Immediate Release Tab PO PRN ×2 (04:45→10:06)
--- NOTE | 2018-09-03 08:07 | CP.PCM.PN ---
Subjective - Date & Time of Evaluation Date of Evaluation: 09/03/18 Time of Evaluation: 07:10 - Subjective Subjective: Awake, alert, lying in bed, no distress Reason for consultation and follow up: Cardiac evaluation of tachycardia, history of COPD on home oxygen, non-small cell carcinoma with radiation and chemotherapy Seen and examined by me and Dr. Mathews Objective - Vital Signs/Intake and Output Vital Signs (last 24 hours): Temp Pulse Resp BP Pulse Ox 97.3 F L 122 H 20 111/79 96 09/02/18 17:10 09/02/18 17:32 09/02/18 17:10 09/02/18 17:32 09/02/18 17:10 Intake and Output: 09/03/18 09/03/18 06:59 18:59 Intake Total 120 Balance 120 - Medications Medications: Current Medications Acetaminophen (Tylenol 325mg Tab) 650 mg PO Q4H PRN PRN Reason: Fever >100.4 F Alprazolam (Xanax) 0.5 mg PO TID PRN; Protocol PRN Reason: Anxiety Last Admin: 09/02/18 22:29 Dose: 0.5 mg Benzocaine/Menthol (Cepacol Sore Throat) 1 bud MT Q3H [facility] Last Admin: 09/03/18 01:43 Dose: 1 bud Famotidine (Pepcid) 10 mg PO BID [facility] Last Admin: 09/02/18 17:32 Dose: 10 mg Furosemide (Lasix) 40 mg PO DAILY [facility] Heparin Sodium (Porcine) (Heparin) 5,000 units SC Q12 [facility]; Protocol Last Admin: 09/02/18 21:52 Dose: 5,000 units Sodium Chloride (Sodium Chloride 0.45%) 1,000 mls @ 60 mls/hr IV .[id number] [facility] Last Admin: 09/02/18 08:06 Dose: Not Given Doxycycline Hyclate 100 mg/ (Sodium Chloride) 100 mls @ 100 mls/hr IVPB Q12 [facility]; Protocol Last Admin: 09/02/18 23:40 Dose: 100 mls/hr Meropenem/Sodium Chloride (Merrem Iv 500 Mg/Ns 50 Ml) 500 mg in 50 mls @ 100 mls/hr IVPB Q12 [facility]; Protocol Stop: 09/08/18 22:01 Last Admin: 09/02/18 21:56 Dose: 100 mls/hr Ipratropium [place] (Atrovent) 0.5 mg IH TIDRESP [facility] Last Admin: 09/02/18 19:41 Dose: 0.5 mg Levalbuterol HCl (Xopenex) 1.25 mg IH TIDRESP [facility] Last Admin: 09/02/18 19:41 Dose: 1.25 mg Methylprednisolone (Solu-Medrol) 30 mg IVP Q12 [facility] Last Admin: 09/02/18 21:58 Dose: 30 mg Metoprolol Tartrate (Lopressor) 50 mg PO BRKDIN [facility] Last Admin: 09/02/18 17:32 Dose: 50 mg Montelukast Sodium (Singulair) 10 mg PO HS [facility] Last Admin: 09/02/18 21:57 Dose: 10 mg Oxycodone HCl (Oxycodone Immediate Release Tab) 10 mg PO Q6H PRN PRN Reason: Pain, moderate (4-7) Last Admin: 09/03/18 04:45 Dose: 10 mg Potassium Chloride (K-Dur 20 Meq Er Tab) 20 meq PO BID [facility] Last Admin: 09/02/18 17:33 Dose: Not Given Sucralfate (Carafate Oral Susp) 1 gm PO TID [facility] Last Admin: 09/02/18 17:32 Dose: 1 gm - Labs Labs: 09/02/18 09:45 09/02/18 08:40 PT 15.5 SECONDS (9.4-12.5) H 08/31/18 18:10 INR 1.40 08/31/18 18:10 APTT 34.9 Seconds (26.9-38.3) 08/31/18 18:10 - Constitutional Appears: Non-toxic, No Acute Distress - Head Exam Head Exam: NORMAL INSPECTION, NORMOCEPHALIC - Eye Exam Eye Exam: Normal appearance Pupil Exam: NORMAL ACCOMODATION - ENT Exam ENT Exam: Mucous Membranes Moist - Respiratory Exam Respiratory Exam: Decreased Breath Sounds, Clear to Ausculation Bilateral, NORMAL BREATHING PATTERN - Cardiovascular Exam Cardiovascular Exam: +S1, +S2 Additional comments: right chest port - GI/Abdominal Exam GI & Abdominal Exam: Soft, Normal Bowel Sounds - Extremities Exam Extremities Exam: Full ROM, Normal Capillary Refill - Neurological Exam Neurological Exam: Alert, Awake, Oriented x3 - Psychiatric Exam Psychiatric exam: Normal Affect, Normal Mood - Skin Skin Exam: Dry, Normal Color, Warm Assessment and Plan - Assessment and Plan (Free Text) Assessment: A 62 year old female who came in to the ER due to low oxygen saturation while at doctors office. In ER found to be tachycardiac. History of COPD, non small cell cancer,currently on chemo and radiation, last chemotherapy was 08/24/18, hemoptysis, tachycardia, anemia, heavy smoker in the past quit after diagnosis of lung cancer. MUGA scan done on 02/18/18 showed LVEF of 35% moderate LV dysfunction and diffuse hypokinesis. Echo done on 07/29/18 and showed LVEF of 5 5%,moderately dilated RV, mild AR/MR, moderate TR, RVSP 57mmHg. She was taking Coreg at home and changed to Metoprolol. Plan: No distress Heart rate still on 110-120's inspite of increasing Lopressor Blood pressure controlled Cardiac status stable On Lasix 20 mg daily,Heparin 5000 units SQ every 8 hours Solumedrol 30 mg every 12 hours, Lopressor 50 mg BID Continue current treatment Continue current medications Discharge planning Will follow up Plan and treatment discussed with Dr. Mathews
[2018-09-03] MEDS: Levalbuterol 1.25 MG/3 ML Inhal Soln UD IH SCH ×2 (08:23→13:57)
[2018-09-03] MEDS: Ipratropium 0.02% Inhal Soln (0.5 mg/2.5 ml) UD IH SCH ×2 (08:27→13:57)
[2018-09-03 09:00] VITALS: BP 124/80; PULSE 95; TEMP 97.6; O2SAT 100
[2018-09-03] MEDS: Sucralfate 1 gm/10 ml Oral Susp UD PO SCH (10:04)
[2018-09-03] MEDS: Potassium Chloride 20 mEq ER Tab PO SCH (10:05)
[2018-09-03] MEDS: MethylPREDNISolone 40 mg Vial IVP SCH (10:05)
[2018-09-03] MEDS: MEROPENEM 500 MG in NS 500 MG/50 ML BAG IVPB SCH (10:15)
--- NOTE | 2018-09-03 11:24 | PN ---
DATE: 09/03/2018 PULMONARY PROGRESS NOTE REFERRING PHYSICIAN: Dr. Christine Wood. SUBJECTIVE: The patient is seen lying in bed. No acute distress. The patient reports having generalized body aches, nursing staff, we will medicate the patient for pain. Still has shortness of breath with exertion; occasional cough. No headache, rhinitis, chest pain, abdominal pain, nausea, vomiting, diarrhea, leg pain, leg pain or leg swelling reported. OBJECTIVE: GENERAL: No acute distress. VITAL SIGNS: Blood pressure 124/80, pulse 95, temperature 97.6, and oxygen saturation 100%. HEENT: Moist mucous membranes. Crowded airway. Mallampati score of 4. NECK: Supple. No JVD. RESPIRATORY: Scattered rhonchi. CARDIOVASCULAR: S1 and S2. ABDOMEN: Soft and nontender. No distention. No organomegaly. EXTREMITIES: No bilateral lower extremity edema. NEUROLOGIC: Awake, alert, and verbal. Follow commands. MEDICATIONS: Reviewed. Tylenol 650 mg every 4 hours p.r.n. for fever greater than 100.4, Xanax 0.5 mg three times a day p.r.n., Cepacol throat lozenges every 3 hours, doxycycline 100 mg every 12 hours, Pepcid 10 mg twice a day, Lasix 40 mg daily, Heparin 5000 units subcutaneous every 12 hours, Atrovent 0.5 mg inhalation three times a day, Xopenex 1.25 mg inhalation three times a day, meropenem 500 mg every 12 hours, Solu-Medrol 30 mg every 12 hours, Lopressor 50 mg at breakfast and dinner, Singulair 10 mg at bedtime, oxycodone 10 mg every 6 hours p.r.n. for moderate pain, potassium chloride 20 mEq twice a day, sodium chloride 0.45% a 1000 mL at 60 mL per hour, and Carafate 1 g three times a day. LABORATORY DATA: Reviewed. No new labs since yesterday. 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 Case discussed with Dr. Wood this morning. She reports that the patient is going to be discharged to home today. Prescription given to nursing staff for the patient to be discharged home on Xopenex nebulizer treatments, Atrovent nebulizer treatments and Medrol Dosepak as directed. We do suspect sleep apnea in this patient. We recommend this patient have sleep study as outpatient. We recommend full pulmonary function test to asses chronic lung disease as outpatient. Fall precautions. Antibiotics as per Infectious Disease. This patient was seen and examined with Dr. Hector. Discussed assessment and plan as described above. This patient was seen and examined with Rhonda Reed, nurse practitioner. Discussed assessment and plan as described above. Thank you for this consult. We will follow with you. Derek Ellis APN Nikita Hector MD
--- NOTE | 2018-09-03 15:28 | CP.PCM.PN ---
<Harshal Reyes - Last Filed: 09/03/18 15:24> Subjective - Date & Time of Evaluation Date of Evaluation: 09/03/18 Time of Evaluation: 09:00 - Subjective Subjective: Harshal Reyes D.O. PGY-3, Internal Medicine Resident, Infectious Disease Progress Note 62 year old female with a PMH of COPD on home O2, stage IV NSCLC now on chemo and radation, last chemo 08/24, who presented to [facility] after she was sent by her oncologist when she was found to be lethargic and hypoxic in the office. Infectious disease consultation was requested for sepsis. Patient was seen and examined at bedside. Dr. Wood in seeing patient. Patient very depressed, crying, wants to leave. Upset about medical problems. Objective - Vital Signs/Intake and Output Vital Signs (last 24 hours): Temp Pulse Resp BP Pulse Ox 97.6 F 95 H 20 124/80 100 09/03/18 09:00 09/03/18 13:22 09/03/18 09:00 09/03/18 13:22 09/03/18 09:00 Intake and Output: 09/03/18 09/03/18 06:59 18:59 Intake Total 120 Balance 120 - Medications Medications: Current Medications Acetaminophen (Tylenol 325mg Tab) 650 mg PO Q4H PRN PRN Reason: Fever >100.4 F Alprazolam (Xanax) 0.5 mg PO TID PRN; Protocol PRN Reason: Anxiety Last Admin: 09/03/18 10:07 Dose: 0.5 mg Benzocaine/Menthol (Cepacol Sore Throat) 1 bud MT Q3H [facility] Last Admin: 09/03/18 13:22 Dose: Not Given Famotidine (Pepcid) 10 mg PO BID [facility] Last Admin: 09/03/18 10:06 Dose: 10 mg Furosemide (Lasix) 40 mg PO DAILY [facility] Last Admin: 09/03/18 10:04 Dose: 40 mg Heparin Sodium (Porcine) (Heparin) 5,000 units SC Q12 [facility]; Protocol Last Admin: 09/03/18 10:04 Dose: 5,000 units Sodium Chloride (Sodium Chloride 0.45%) 1,000 mls @ 60 mls/hr IV .[id number] [facility] Last Admin: 09/02/18 08:06 Dose: Not Given Doxycycline Hyclate 100 mg/ (Sodium Chloride) 100 mls @ 100 mls/hr IVPB Q12 [facility]; Protocol Last Admin: 09/03/18 10:16 Dose: 100 mls/hr Meropenem/Sodium Chloride (Merrem Iv 500 Mg/Ns 50 Ml) 500 mg in 50 mls @ 100 mls/hr IVPB Q12 [facility]; Protocol Stop: 09/08/18 22:01 Last Admin: 09/03/18 10:15 Dose: 100 mls/hr Ipratropium [place] (Atrovent) 0.5 mg IH TIDRESP [facility] Last Admin: 09/03/18 13:57 Dose: Not Given Levalbuterol HCl (Xopenex) 1.25 mg IH TIDRESP [facility] Last Admin: 09/03/18 13:57 Dose: Not Given Methylprednisolone (Solu-Medrol) 30 mg IVP Q12 [facility] Last Admin: 09/03/18 10:05 Dose: 30 mg Metoprolol Tartrate (Lopressor) 50 mg PO BRKDIN [facility] Last Admin: 09/03/18 13:22 Dose: 50 mg Montelukast Sodium (Singulair) 10 mg PO HS [facility] Last Admin: 09/02/18 21:57 Dose: 10 mg Oxycodone HCl (Oxycodone Immediate Release Tab) 10 mg PO Q6H PRN PRN Reason: Pain, moderate (4-7) Last Admin: 09/03/18 10:06 Dose: 10 mg Potassium Chloride (K-Dur 20 Meq Er Tab) 20 meq PO BID [facility] Last Admin: 09/03/18 10:05 Dose: 20 meq Sucralfate (Carafate Oral Susp) 1 gm PO TID [facility] Last Admin: 09/03/18 10:04 Dose: 1 gm - Labs Labs: 09/02/18 09:45 09/02/18 08:40 PT 15.5 SECONDS (9.4-12.5) H 08/31/18 18:10 INR 1.40 08/31/18 18:10 APTT 34.9 Seconds (26.9-38.3) 08/31/18 18:10 - Constitutional Appears: Non-toxic, Chronically Ill, crying, depressed - Head Exam Head Exam: ATRAUMATIC, NORMOCEPHALIC - Eye Exam Eye Exam: EOMI. absent: Scleral icterus - ENT Exam ENT Exam: Mucous Membranes Moist, perforated septum - Neck Exam Neck exam: Positive for: Normal Inspection - Respiratory Exam Respiratory Exam: Rhonchi decreased - Cardiovascular Exam Cardiovascular Exam: +S1, +S2. absent: Gallop, Rubs - GI/Abdominal Exam GI & Abdominal Exam: Normal Bowel Sounds, Soft. absent: Tenderness - Extremities Exam Extremities exam: Negative for: pedal edema - Neurological Exam Neurological exam: Alert, Oriented x4 - Skin Skin Exam: Dry, Warm Assessment and Plan - Assessment and Plan (Free Text) Assessment: 62 year old female with a PMH of COPD on home O2, stage IV NSCLC now on chemo and radation, last chemo 08/24, who presented to [facility] after she was sent by her oncologist when she was found to be lethargic and hypoxic in the office. Infectious disease consultation was requested for sepsis. Plan: Sepsis likely post obstructive/HCAP Stage IV NSCLC on chemo and radiation COPD on home oxygen Continue doxy, merrem day 3 Likely for D/C today, will advise on PO regimen Encouraged outpatient follow with oncology Patient was seen and examined and case to be discussed with attending physician Thank you for the pleasure of participating in the care of this patient <Eliezer Stuart - Last Filed: 09/03/18 17:03> Objective - Vital Signs/Intake and Output Vital Signs (last 24 hours): Temp Pulse Resp BP Pulse Ox 97.6 F 95 H 20 124/80 100 09/03/18 09:00 09/03/18 13:22 09/03/18 09:00 09/03/18 13:22 09/03/18 09:00 Intake and Output: 09/03/18 09/03/18 06:59 18:59 Intake Total 120 Balance 120 - Labs Labs: 09/02/18 09:45 09/02/18 08:40 PT 15.5 SECONDS (9.4-12.5) H 08/31/18 18:10 INR 1.40 08/31/18 18:10 APTT 34.9 Seconds (26.9-38.3) 08/31/18 18:10 Attending/Attestation - Attestation I have personally seen and examined this patient.: Yes I have fully participated in the care of the patient.: Yes I have reviewed all pertinent clinical information, including history, physical exam and plan: Yes
--- NOTE | 2018-09-03 19:27 | CON ---
DATE OF CONSULTATION: 09/03/2018 HISTORY OF PRESENT ILLNESS: In short, the patient is a 62-year-old female with multiple medical issues including stage IV lung cancer. The patient was on radiation and chemotherapy. The patient was admitted on the medical side for lethargy and hypoxia. The patient presented depressed and crying, wants to leave, that is why this public relations writer got involved into the patient's care. This public relations writer had a prolonged conversation with Dr. Wood. As per report, the patient has history of depression. The patient was doing relatively fine recently, but the patient's sister came from [place], and since that time, the patient presented to be more depressed. The patient never expressed thoughts of killing herself or others. The patient is trying her best to fight the disease, but overall prognosis is very, very poor. The patient was seen and examined. The patient presented to be alert. Some difficulties to stay focused and concentrate. The patient reported that she has episodes of being depressed, but she is trying her best to be as functional as possible for her teenage son. The patient reported that she has no suicidal ideation, no suicidal intent or plan. The patient reports at times she feels depressed, which interferes with her plan to fire the disease. Overall, the patient is aware of her poor prognosis, and the patient's sister seems to be supportive and caring for the patient. The patient reported that she has episodes of anxiety, which she would describe as shortness of breath and feeling extremely anxious. This public relations writer educated about Xanax, and this public relations writer would prescribe the half of the minimal dose of Xanax 0.25 mg twice a day, which the patient was taking here in [place]. The patient denied any problems with sleep or denied any psychotic symptoms. PHYSICAL EXAMINATION: VITAL SIGNS: Reviewed. Temperature 97.6, pulse 75, blood pressure 124/80, respirations 20, and oxygen saturation is 98. MEDICATIONS: Reviewed. Tylenol, Xanax, Cepacol, Benadryl, doxycycline, Pepcid, Lasix, heparin, Atrovent, Xopenex, Merrem, Solu-Medrol, Lopressor, Singulair, oxycodone, K-Dur, sodium chloride, sucralfate. As per Dr. Wood, the patient also was on oxycodone and Adderall as needed for boost of the energy. LABORATORY DATA: Labs reviewed. Coagulation reviewed. Chemistry reviewed. MENTAL STATUS EXAMINATION: The patient presented to be alert, difficult to stay focused and concentrate at times. The patient had circumstantial and tangential thought process. Mood described as "I have my moments of depression and anxiety." The patient denied feeling of feeling hopeless or helpless. The patient overall presented to be optimistic and was referring her anxiety as "deviation from my happy place." Insight and judgment seemed to be fair. Impulses are well controlled. IMPRESSION: Rule out mood disorder due to general medical condition, rule out adjustment disorder. PLAN: Xanax 0.25 mg twice a day as needed. This public relations writer prescribed 1-week supply and one refill. The patient does not meet the criteria for psychiatric admission because she will lose valuable time with her family. Overall prognosis is very poor. The patient is not psychotic, not hopeless, not helpless. There is no need for serotonin reuptake inhibitors. Emotional support and empathic listening was provided. Family was appreciative. This public relations writer will sign off. Should you have any questions give me a call back. Thank you very much. Annita Cadet MD
== END 2018-09-03 16:30 | disposition home or self-care (01) | DRG 871 ==
LOC: ED 17:25 → ERH 17:56 → 2RNO 22:20 → 3RSO 09-01 22:04
PROVIDERS: ADMIT Internal Medicine Medical Oncology; ATTEND Internal Medicine Medical Oncology
DX: A41.9 Sepsis, unspecified organism (principal); J18.9 Pneumonia, unspecified organism; J44.1 Chronic obstructive pulmonary disease with (acute) exacerbation; C34.92 Malignant neoplasm of unspecified part of left bronchus or lung; C79.72 Secondary malignant neoplasm of left adrenal gland; J44.0 Chronic obstructive pulmonary disease with (acute) lower respiratory infection; C79.71 Secondary malignant neoplasm of right adrenal gland; E87.8 Other disorders of electrolyte and fluid balance, not elsewhere classified; I27.20 Pulmonary hypertension, unspecified; D50.9 Iron deficiency anemia, unspecified; R00.0 Tachycardia, unspecified; E87.6 Hypokalemia; F98.8 Other specified behavioral and emotional disorders with onset usually occurring in childhood and adolescence; G89.29 Other chronic pain; R09.02 Hypoxemia; J34.89 Other specified disorders of nose and nasal sinuses; Z99.81 Dependence on supplemental oxygen; Z91.14 Patient's other noncompliance with medication regimen; Z87.891 Personal history of nicotine dependence

== ENCOUNTER 2018-09-23 13:12 | Inpatient (IN) | payer OTHER ==
[2018-09-23] MEDS ORDERED: Sodium Chloride 0.9% 1,000 ML IV STA ×2 (13:36→15:10)
--- NOTE | 2018-09-23 13:46 | ED PDOC ---
Arrival/HPI - General Chief Complaint: Back Pain Time Seen by Provider: 09/23/18 13:20 Historian: Patient, Family - History of Present Illness Narrative History of Present Illness (Text): 09/23/18 13:38 63 year old female, who was recently admitted to the ED for dehydration, and whose past medical history includes metastatic lung cancer, presents to the ED for back pain status post fall. As per patient's family, patient slipped and fell yesterday, and subsequently hit her head, hips and back, but did not lose consciousness. Family reports patient has not been eating or drinking for the past 5 days. Patient reports pain on posterior side of left ribs, secondary to fall. Patient reports general weakness but denies any fevers, chills, headache, chest pain, shortness of breath, dyspnea on exertion, cough, abdominal pain, v omiting, diarrhea, neck pain, urinary/bowel changes, or any other complaints. Oncologist: Dr. Wood Time/Duration: 24 hours Symptom Onset: Gradual Symptom Course: Unchanged Activities at Onset: Light Context: Home Past Medical History - Provider Review Nursing Documentation Reviewed: Yes - Past History Past History: No Previous - Infectious Disease Hx of Infectious Diseases: None - Past Medical History Past Medical History: No Previous - Cardiac Hx Cardiac Arrhythmia: Yes Hx Circulatory Problems: Yes - Pulmonary Hx Respiratory Disorders: Yes Hx Lung Cancer: Yes (on chemo) - Neurological Hx Neurological Disorder: No - HEENT Hx HEENT Disorder: No - Renal Hx Renal Failure: Yes - Endocrine/Metabolic Hx Endocrine Disorders: No - Hematological/Oncological Hx Blood Disorders: Yes Hx Blood Transfusions: Yes - Integumentary Hx Dermatological Disorder: No - Musculoskeletal/Rheumatological Hx Falls: No - Gastrointestinal Hx Gastrointestinal Disorders: No - Genitourinary/Gynecological Hx Genitourinary Disorders: No - Psychiatric Hx Substance Use: No - Surgical History Other/Comment: R chest port - Anesthesia Hx Anesthesia: Yes Hx Anesthesia Reactions: No Hx Malignant Hyperthermia: No - Suicidal Assessment Feels Threatened In Home Enviroment: No Family/Social History - Physician Review Nursing Documentation Reviewed: Yes Family/Social History: Unknown Family HX Smoking Status: Former Smoker Hx Alcohol Use: No Hx Substance Use: No Hx Substance Use Treatment: No Allergies/Home Meds Allergies/Adverse Reactions: Allergies No Known Allergies Allergy (Verified 08/10/18 13:50) Home Medications: Home Meds Medication Instructions Recorded Confirmed Carvedilol [Coreg] 3.125 mg PO BID 07/27/18 08/31/18 Furosemide [Lasix] 40 mg PO PRN 07/27/18 08/31/18 Potassium Chloride [K-Tab ER] 10 meq PO DAILY 07/27/18 08/31/18 oxyCODONE [oxyCODONE Immediate 10 mg PO PRN PRN 07/27/18 08/31/18 Release Tab] Review of Systems - Review of Systems Constitutional: absent: Fevers Eyes: absent: Vision Changes ENT: Normal. absent: Hearing Changes Respiratory: Normal. absent: SOB, Cough Cardiovascular: Normal. absent: Chest Pain, Edema Gastrointestinal: Normal. absent: Abdominal Pain, Vomiting Genitourinary Female: Normal. absent: Dysuria, Frequency Musculoskeletal: Back Pain. absent: Neck Pain Skin: absent: Rash Neurological: absent: Headache Endocrine: absent: Diaphoresis Hemo/Lymphatic: absent: Adenopathy Psychiatric: absent: Anxiety, Depression Physical Exam Vital Signs Reviewed: Yes Temperature: Afebrile Blood Pressure: Normal Pulse: Tachycardic Respiratory Rate: Normal Appearance: Positive for: Ill-Appearing, Cachectic Mental Status: Positive for: Alert and Oriented X 3 - Systems Exam Head: Present: Atraumatic, Normocephalic Pupils: Present: PERRL Extroacular Muscles: Present: EOMI Conjunctiva: Present: Normal Mouth: Present: Dry (dry mucous membranes) Pharnyx: Present: Normal Neck: Present: Normal Range of Motion Respiratory/Chest: Present: Other (course breath sounds) Cardiovascular: Present: Tachycardic Abdomen: No: Tenderness, Distention, Peritoneal Signs Back: Present: Other (left posterior rib pain upon palpation) Neurological: Present: GCS=15, CN II-XII Intact Skin: Present: Pale Psychiatric: Present: Alert, Oriented x 3 Medical Decision Making ED Course and Treatment: 09/23/18 13:54 Impression: 63 year old female who presents to the ED for back pain status post fall. Plan: -- Head CT -- Labs -- IV Fluids -- CT Abdomen/Pelvis -- LS Spine -- Reassess and disposition Prior Visits: Notes and results from previous visits were reviewed. Progress Notes: 09/23/18 14:[address] Wood, requests CT of chest to evaluate possible exacerbation of cancer, accepts patient under his service. 09/23/18 16:57 CT head No acute intracranial abnormalities. No significant findings to account for the clinical presentation. Diffuse sclerotic and lytic abnormalities with respect to calvarium. Metastatic disease should be considered. CT chest LUNGS: Improved aeration of the left upper lobe. Residual consolidative change/tumor left lower lobe. New pulmonary nodules, masses right lung. MEDIASTINUM: Unremarkable thoracic aorta. No aneurysm. Normal sized heart. Dilated main pulmonary artery 3.5 cm consistent with pulmonary arterial hypertension. Massive adenopathy circumferentially investing left mainstem bronchus. This is likely resulting in obstructive atelectasis beyond the lobar branch. Progressive mediastinal adenopathy. Findings in the left axilla suggest neoplastic axillary adenopathy. No aortic atherosclerotic calcification. IMPRESSION: 1. Progressive tumor burden in the thorax described in greater detail above. 2. This is primarily mediastinal and hilar adenopathy. 3. Additional sclerotic and lytic lesions identified vertebral bodies and ribs. 4. New pulmonary nodules/metastasis right lung. Pelvis: Lumbar: IMPRESSION: Limited examination due to severe fecal impaction in the colon and bowel gas which limit evaluation of demineralized vertebral bodies. Allowing for this, no acute fracture. 09/23/18 17:16 Xray pelvis FINDINGS: BONES: There is diffuse bone demineralization. There is no acute displaced fracture or bone destruction. Bone alignment is normal. JOINTS: There is mild degenerative osteoarthrosis in the hip joints and sacroiliac joints. SOFT TISSUES: Normal. OTHER FINDINGS: There is examination is limited due to severe fecal impaction in the colon which obscures the pelvis and sacrum. IMPRESSION: Limited examination due to severe fecal impaction in the colon which obscures the pelvis and sacrum. Allowing for this, no acute displaced fracture or dislocation. Please note occult fractures cannot be excluded on plain radiographs. If there is a persistent clinical concern, an MRI of the hip may be performed for further evaluation. 09/23/18 17:50 09/23/18 17:58 Patient is persistently tachycardic. CT shows worsening cancer and lytic lesions. Family and patient requesting consult for advance directive planning. Pallative care consult placed. Patient's pain continues to be uncontrolled. - Scribe Statement The provider has reviewed the documentation as recorded by the Carlos Caba Provider Scribe Attestation: All medical record entries made by the Scribe were at my direction and personally dictated by me. I have reviewed the chart and agree that the record accurately reflects my personal performance of the history, physical exam, medical decision making, and the department course for this patient. I have also personally directed, reviewed, and agree with the discharge instructions and disposition. Disposition/Present on Arrival - Present on Arrival Any Indicators Present on Arrival: No History of DVT/PE: No History of Uncontrolled Diabetes: No Urinary Catheter: No History Surgical Site Infection Following: None - Disposition Have Diagnosis and Disposition been Completed?: Yes Diagnosis: Dehydration, Failure to thrive, Metastatic cancer, Fall Disposition: HOSPITALIZED Disposition Time: 14:53 Patient Plan: Admission Patient Problems: Current Active Problems Problem Status Onset Dehydration Acute Metastatic cancer Acute Failure to thrive Acute Fall Acute Condition: FAIR
[2018-09-23 14:49] LABS: BASO # 0.02 K/mm3 (0.0-2.0); BASO % 0.1 % (0.0-3.0); EOS % 0.2 % (1.5-5.0); HEMOGLOBIN 10.7 g/dL (12.0-16.0); LYMPH % 10.5 % (22.0-35.0); MEAN CELL VOLUME 91.5 fl (80.0-105.0); MEAN CORPUSCULAR HEMOGLOBIN 28.5 pg (25.0-35.0); MEAN CORPUSCULAR HGB CONC 31.2 g/dl (31.0-37.0); MEAN PLATELET VOLUME 8.6 fl (7.0-11.0); MONO # 1.2 (0.1-0.6); MONO % 6.1 % (1.0-6.0); RBC 3.75 10^6/uL (3.5-6.1); RED CELL DISTRIBUTION WIDTH 17.1 % (11.5-14.5); WHITE BLOOD COUNT 19.2 10^3/uL (4.5-11.0)
[2018-09-23] MEDS ORDERED: Morphine 4 mg/ml ISec IVP STA (15:28)
[2018-09-23 15:43] LABS: ALB/GLOB RATIO 0.8 (1.1-1.8); ALBUMIN 3.1 g/dL (3.0-4.8); CALCIUM 10.9 mg/dL (8.4-10.5)
--- NOTE | 2018-09-23 16:58 | CT ---
Date of service: 09/23/2018 PROCEDURE: CT HEAD WITHOUT CONTRAST. HISTORY: fall, with head trauma COMPARISON: None available. TECHNIQUE: Axial computed tomography images were obtained through the head/brain without intravenous contrast. Supplemental Coronal and Sagittal projections created and reviewed. Radiation dose: Total exam DLP = 1051.45 mGy-cm. This CT exam was performed using one or more of the following dose reduction techniques: Automated exposure control, adjustment of the mA and/or kV according to patient size, and/or use of iterative reconstruction technique. FINDINGS: HEMORRHAGE: No intracranial hemorrhage. BRAIN: No mass effect or edema. No atrophy or chronic microvascular ischemic changes. VENTRICLES: Unremarkable. No hydrocephalus. CALVARIUM: Hyperostotic calvarium. Innumerable sclerotic foci identified. Additional areas of mottling throughout the calvarium. PARANASAL SINUSES: Unremarkable as visualized. No significant inflammatory changes. MASTOID AIR CELLS: Unremarkable as visualized. No inflammatory changes. OTHER FINDINGS: None. IMPRESSION: No acute intracranial abnormalities. No significant findings to account for the clinical presentation. Diffuse sclerotic and lytic abnormalities with respect to calvarium. Metastatic disease should be considered.
--- NOTE | 2018-09-23 17:08 | CT ---
Date of service: 09/23/2018 PROCEDURE: CT Chest without contrast HISTORY: requested by pmd, metastatic cancer, fall COMPARISON: 07/27/2018. CT thorax Relevant medical history: History of lung cancer. TECHNIQUE: Contiguous axial images were obtained through the chest without intravenous contrast enhancement. Sagittal and coronal reconstructions were performed. Radiation dose: Total exam DLP = 164.38 mGy-cm. This CT exam was performed using one or more of the following dose reduction techniques: Automated exposure control, adjustment of the mA and/or kV according to patient size, and/or use of iterative reconstruction technique. FINDINGS: LUNGS: Improved aeration of the left upper lobe. Residual consolidative change/tumor left lower lobe. New pulmonary nodules, masses right lung. MEDIASTINUM: Unremarkable thoracic aorta. No aneurysm. Normal sized heart. Dilated main pulmonary artery 3.5 cm consistent with pulmonary arterial hypertension. Massive adenopathy circumferentially investing left mainstem bronchus. This is likely resulting in obstructive atelectasis beyond the lobar branch. Progressive mediastinal adenopathy. Findings in the left axilla suggest neoplastic axillary adenopathy. No aortic atherosclerotic calcification. PLEURA: No pleural fluid. No pneumothorax. BONES: Extensive primarily sclerotic metastatic disease affecting ribs and upper lumbar vertebral bodies. Lytic metastatic lesion T11 vertebral body. UPPER ABDOMEN: Grossly unremarkable. OTHER FINDINGS: None. IMPRESSION: 1. Progressive tumor burden in the thorax described in greater detail above. 2. This is primarily mediastinal and hilar adenopathy. 3. Additional sclerotic and lytic lesions identified vertebral bodies and ribs. 4. New pulmonary nodules/metastasis right lung.
[2018-09-23] MEDS ORDERED: Sodium Chloride 0.9% 1,000 ML IV SCH ×2 (17:30→22:15)
--- NOTE | 2018-09-23 17:48 | RAD ---
Date of service: 09/23/2018 PROCEDURE: Radiographs of the Lumbar Spine. HISTORY: fall COMPARISON: No prior. TECHNIQUE: 5 views obtained. FINDINGS: BONES: There is severe diffuse bone demineralization. There is no acute fracture. There is normal lumbar lordosis. There is no spondylolysis or spondylolisthesis. DISC SPACES: Mild multilevel degenerative disc disease in the lower lumbar spine, worse at L5-S1. OTHER FINDINGS: Severe fecal impaction in the colon and bowel gas limit this examination. IMPRESSION: Limited examination due to severe fecal impaction in the colon and bowel gas which limit evaluation of demineralized vertebral bodies. Allowing for this, no acute fracture.
[2018-09-23] MEDS ORDERED: POLYETHYLENE GLYCOL 3350 17 GM/Dose PACKET PO STA (17:51)
--- NOTE | 2018-09-23 17:51 | RAD ---
PROCEDURE: Radiographs of the pelvis and bilateral hips HISTORY: fall COMPARISON: None. TECHNIQUE: 2 views obtained. FINDINGS: BONES: There is diffuse bone demineralization. There is no acute displaced fracture or bone destruction. Bone alignment is normal. JOINTS: There is mild degenerative osteoarthrosis in the hip joints and sacroiliac joints. SOFT TISSUES: Normal. OTHER FINDINGS: There is examination is limited due to severe fecal impaction in the colon which obscures the pelvis and sacrum. IMPRESSION: Limited examination due to severe fecal impaction in the colon which obscures the pelvis and sacrum. Allowing for this, no acute displaced fracture or dislocation. Please note occult fractures cannot be excluded on plain radiographs. If there is a persistent clinical concern, an MRI of the hip may be performed for further evaluation.
[2018-09-23] MEDS ORDERED: Morphine 2 mg/ml ISec IVP STA (17:56)
[2018-09-23] MEDS ORDERED: Morphine 15 mg SR Tab PO SCH (22:00)
[2018-09-23] MEDS: MethylPREDNISolone 40 mg Vial IVP SCH (22:49)
[2018-09-23] MEDS: Meropenem IV 1 gm in NS 1 GM/50 ML BAG IVPB SCH (22:50)
[2018-09-24] MEDS: Morphine 2 mg/ml ISec IVP PRN ×3 (02:19→16:04)
[2018-09-24] MEDS: Ipratropium 0.02% Inhal Soln (0.5 mg/2.5 ml) UD IH SCH ×4 (03:00→20:53)
[2018-09-24] MEDS: Levalbuterol 0.63 MG/3 ML Inhal Soln UD IH SCH ×3 (07:46→20:54)
[2018-09-24 08:26] LABS: BASO # 0.01 K/mm3 (0.0-2.0); BASO % 0.1 % (0.0-3.0); HEMOGLOBIN 10.8 g/dL (12.0-16.0); LYMPH # 0.5 (1.2-3.4); LYMPH % 3.4 % (22.0-35.0); MEAN CELL VOLUME 92.2 fl (80.0-105.0); MEAN CORPUSCULAR HEMOGLOBIN 28.1 pg (25.0-35.0); MEAN CORPUSCULAR HGB CONC 30.5 g/dl (31.0-37.0); MEAN PLATELET VOLUME 8.7 fl (7.0-11.0); MONO # 0.1 (0.1-0.6); MONO % 0.6 % (1.0-6.0); PLATELET COUNT 324 10^3/uL (120.0-450.0); RBC 3.84 10^6/uL (3.5-6.1); RED CELL DISTRIBUTION WIDTH 17.3 % (11.5-14.5); WHITE BLOOD COUNT 13.6 10^3/uL (4.5-11.0)
[2018-09-24 08:41] LABS: ALB/GLOB RATIO 0.8 (1.1-1.8); ALBUMIN 3.3 g/dL (3.0-4.8)
--- NOTE | 2018-09-24 09:01 | HP ---
DATE OF EXAM: 09/24/2018 HISTORY OF PRESENT ILLNESS: Ms. Quinn is a 63-year-old female with stage IV lung cancer, squamous cell type. She has been on chemotherapy for past one year, recently received palliative radiation to the left lung for hemoptysis. She is currently on Optivo third line chemotherapy for progressive disease. She received first dose of Optivo two weeks ago. She presented to the ED status post fall at home. As per the patient's family, she slipped and fell. Hit her head, hips and back, did not lose consciousness. No convulsions. She was due to get a second dose of Optivo on Friday, but she was no show in the office. When our office called, she told us that she is very weak and will postpone the appointment for two days. No fever. No cough with expectoration. She has severe COPD and emphysema. She had baseline shortness of breath. She also has pulmonary hypertension, history of sinus tachycardiac on beta blockers. Complaining of back pain. PAST MEDICAL HISTORY: COPD, ADD. PAST SURGICAL HISTORY: Right adrenal biopsy, chest port placement. FAMILY HISTORY: Not contributory. ALLERGIES: NO KNOWN DRUG ALLERGIES. HOME MEDICATIONS: Metoprolol 50 mg p.o. b.i.d., Lasix 40 mg p.r.n., oxycodone 10 mg every 6 hours p.r.n., morphine extended release 15 mg p.o. b.i.d., Adderall p.r.n. REVIEW OF SYSTEMS: Positive for back pain, headache, baseline shortness of breath. No fever. No cough with expectoration. PHYSICAL EXAMINATION GENERAL: Mild respiratory distress. VITAL SIGNS: Temperature 98.7, heart rate 125, blood pressure 102/60, respiratory rate 20 per minute, oxygen saturation 90% on oxygen by nasal cannula. HEENT: Pallor positive. NECK: No lymphadenopathy. CHEST: No rhonchi. No wheezing. Air entry decreased on the left side. ABDOMEN: Soft, nontender. No hepatosplenomegaly. EXTREMITIES: No edema. CENTRAL NERVOUS SYSTEMS: Alert and oriented x3. No focal or sensory motor deficit. LABORATORY DATA: White count 19.2, hemoglobin 10.7, hematocrit 34.3, platelet 265. Sodium 132, potassium 3.8, creatinine 1.3, phosphorus 3.7, magnesium 1.6. LFTs are within normal limits. ASSESSMENT: 1. Stage IV lung cancer, progressive disease. 2. End-stage chronic obstructive pulmonary disease. 3. Pulmonary hypertension. 4. Attention deficit disorder. 5. Sinus tachycardia. 6. Chronic renal insufficiency. PLAN: She will be admitted to the hospital. Lasix 20 mg IV daily. We will do the ipratropium every 6 hours and p.r.n., Xopenex three times a day and p.r.n., meropenem every 12 hours. ID consultation with Dr. Stuart requested. Might have post obstructive pneumonia on the left side. Imaging studies reviewed. CT chest without contrast ordered, showed COPD changes, left-sided lung mass unchanged, right-sided lung nodules. bony mets in ribs and base of skull. CAT scan of the head, no acute changes, bony metastases at the base of the skull. For Pain MS Contin 15 mg tid., morphine 1 mg every 4 hour p.r.n. IV, Solu- Medrol 30 mg IV every 12 hours, one dose stat to be given, metoprolol 50 mg p.o. b.i.d. Consultation with Dr. Mathews for sinus tachycardia, Protonix 40 mg IV b.i.d., IV fluid at 60 mL an hour. Labs for tomorrow ordered; CBC and CMP. social services specialist consult and case management consult. She had declined home care services when they were arranged few weeks ago upon discharge from the hospital. She stated that she has dealt with home care services before when her mother was sick and was not happy with them. Sometimes She has friends staying and helping her out at home. Most of the time she is alone, has teenage son. I offered home health care services but she is declining again. Prognosis is poor and she is fully aware of it. She has discussed with me on prior occasions and stated that 'please keep me going, as long as I can with chemo ". She has bounced back after each hospitalization and she has been taking care of herself and her son independently. She is asking to be discharged today. I advised her that we will consider discharge in next 1-2 days once pain is under control. She declined cardiac surgeon. I also asked if I can call her sister in [place] , Ms. Singh to let her know her health status. She declined that. her sister has called me last week to get an update. Christine Wood MD MTDD
[2018-09-24 09:21] LABS: LYMPHOCYTE 4 % (22.0-35.0); MONOCYTE 1 % (1.0-6.0); NEUTROPHIL 95 % (50.0-70.0); PLATELET ESTIMATE NORMAL (NORMAL)
[2018-09-24] MEDS: Morphine 15 mg SR Tab PO SCH ×3 (10:00→17:51)
[2018-09-24] MEDS: MethylPREDNISolone 40 mg Vial IVP SCH ×2 (10:00→22:15)
[2018-09-24] MEDS: Meropenem IV 1 gm in NS 1 GM/50 ML BAG IVPB SCH ×2 (10:00→22:16)
--- NOTE | 2018-09-24 12:16 | CP.PCM.CON ---
History of Present Illness - History of Present Illness History of Present Illness: Palliative consult requested by Dr Jesika Wood Reason: Goals of care This is a 63 year old female with history of COPD, metastatic NSCLC on chemotherapy who presented to ED on 09/23 with back pain status post fall. Family reported she slipped and fell yesterday, and subsequently hit her head, hips and back, but did not lose consciousness. The patient reported pain on posterior side of left ribs, secondary to fall. Patient reports general weakness but denies any fevers, chills, headache, chest pain, shortness of breath, dyspnea on exertion, cough, abdominal pain, vomiting, diarrhea, neck pain, urinary/bowel changes or any other complaints. Family reported patient has not been eating or drinking for the past 5 days. She was was recently admitted to [facility] (08/31) for dehydration. Head CT : No acute abnormalities. Diffuse sclerotic and lytic abnormalities in calvarium. X rays of hip/pelvis/lumbar spine: No acute fractures or dislocations. Severe fecal impaction in the colon CT of Chest: Progressive tumor burden in the thorax, primarily mediastinal and hilar adenopathy, sclerotic and lytic lesions in ribs and vertebral bodies. New pulmonary nodules /metastasis in right lung Echo done on 07/29/18 and showed LVEF of 55%,moderately dilated RV, mild AR/MR, moderate TR, RVSP 57mmHg. Tachycardia. PMHx: COPD, Non-small cell Lung Ca stage IV on Opdivo, L pleural effusion, L adrenal mass, post obstructive pneumonitis, ADHD PSHx: Breast reduction (1999), Inguinal hernia repair (2011), [place] cath (2018) Social history: Former heavy smoker, denies EtOH or drug use. Lives with teenage son. Family history: Sister- from Leukemia age 32, Dad-HTN/DM, Mom- HTN Advance Care Planning: The pat has an Advanced Directive. Review of System: As per HPI, 12 point ROS otherwise negative Past Patient History - Infectious Disease Hx of Infectious Diseases: None - Past Social History Smoking Status: Former Smoker - CARDIAC Hx Cardia Arrhythmia: Yes Hx Circulatory Problems: Yes - PULMONARY Hx Respiratory Disorders: Yes Hx Chronic Obstructive Pulmonary Disease (COPD): Yes - NEUROLOGICAL Hx Neurological Disorder: No - HEENT Hx HEENT Problems: No - RENAL Hx Renal Failure: Yes - ENDOCRINE/METABOLIC Hx Endocrine Disorders: No - HEMATOLOGICAL/ONCOLOGICAL Hx Blood Disorders: Yes - INTEGUMENTARY Hx Dermatological Problems: No - MUSCULOSKELETAL/RHEUMATOLOGICAL Hx Falls: Yes (09/22/18) - GASTROINTESTINAL Hx Gastrointestinal Disorders: No - GENITOURINARY/GYNECOLOGICAL Hx Genitourinary Disorders: No - PSYCHIATRIC Hx Substance Use: No - SURGICAL HISTORY Other/Comment: R chest port - ANESTHESIA Hx Anesthesia: Yes Hx Anesthesia Reactions: No Hx Malignant Hyperthermia: No Meds Allergies/Adverse Reactions: Allergies Allergy/AdvReac Type Severity Reaction Status Date / Time No Known Allergies Allergy Verified 08/10/18 13:50 - Medications Medications: Current Medications Alprazolam (Xanax) 0.25 mg PO BID [facility]; Protocol Stop: 09/30/18 22:16 Last Admin: 09/24/18 10:01 Dose: 0.25 mg Furosemide (Lasix) 20 mg IVP DAILY [facility] Last Admin: 09/24/18 10:01 Dose: 20 mg Meropenem (Merrem Iv 1 Gm Premix) 1 gm in 50 mls @ 100 mls/hr IVPB Q12 [facility]; Protocol Stop: 09/30/18 22:01 Last Admin: 09/24/18 10:00 Dose: 100 mls/hr Sodium Chloride (Sodium Chloride 0.9%) 1,000 mls @ 60 mls/hr IV .[id number] [facility] Last Admin: 09/23/18 22:00 Dose: 60 mls/hr Ipratropium [place] (Atrovent) 0.5 mg IH [id number] [facility] Last Admin: 09/24/18 07:46 Dose: 0.5 mg Levalbuterol HCl (Xopenex) 0.63 mg IH TIDRESP [facility] Last Admin: 09/24/18 07:46 Dose: 0.63 mg Methylprednisolone (Solu-Medrol) 30 mg IVP Q12 [facility] Last Admin: 09/24/18 10:00 Dose: 30 mg Metoprolol Tartrate (Lopressor) 50 mg PO BID [facility] Last Admin: 09/24/18 10:01 Dose: 50 mg Morphine Sulfate (Morphine) 1 mg IVP Q4H PRN PRN Reason: Pain, moderate (4-7) Last Admin: 09/24/18 05:50 Dose: 1 mg Morphine Sulfate (Morphine Extended Release Tab) 15 mg PO TID [facility] Last Admin: 09/24/18 10:00 Dose: 15 mg Pantoprazole Sodium (Protonix Inj) 40 mg IVP Q12 [facility] Last Admin: 09/24/18 10:00 Dose: 40 mg Physical Exam - Constitutional Appears: Cachectic, Chronically Ill - Head Exam Head Exam: NORMOCEPHALIC - Eye Exam Eye Exam: Normal appearance, PERRL - ENT Exam ENT Exam: Mucous Membranes Dry - Respiratory Exam Respiratory Exam: Decreased Breath Sounds, NORMAL BREATHING PATTERN - Cardiovascular Exam Cardiovascular Exam: REGULAR RHYTHM, +S1, +S2 - GI/Abdominal Exam GI & Abdominal Exam: Hypoactive Bowel Sounds, Soft - Extremities Exam Extremities exam: Positive for: normal inspection, pedal pulses present - Back Exam Back exam: vertebral tenderness - Neurological Exam Neurological exam: Alert - Psychiatric Exam Psychiatric exam: Flat Affect - Skin Skin Exam: Dry, Pallor, Warm - Additional Findings Additional findings: Palliative performance scale rating 40% Results - Vital Signs Recent Vital Signs: Last Vital Signs Temp 97.3 F L 09/24/18 08:02 Pulse 120 H 09/24/18 10:01 Resp 20 09/24/18 08:02 BP 103/68 09/24/18 10:01 Pulse Ox 98 09/24/18 08:02 - Labs Result Diagrams: 09/24/18 08:15 09/24/18 08:15 Labs: Laboratory Results - last 24 hr 09/23/18 09/23/18 09/24/18 14:40 14:40 08:15 WBC 19.2 H D 13.6 H D RBC 3.75 3.84 Hgb 10.7 L 10.8 L Hct 34.3 L 35.4 L MCV 91.5 92.2 MCH 28.5 28.1 MCHC 31.2 30.5 L RDW 17.1 H 17.3 H Plt Count 265 324 MPV 8.6 8.7 Neut % (Auto) 83.1 H 95.9 H Lymph % (Auto) 10.5 L 3.4 L [place] % (Auto) 6.1 H 0.6 L Eos % (Auto) 0.2 L 0.0 L Baso % (Auto) 0.1 0.1 Lymph # (Auto) 2.0 0.5 L [place] # (Auto) 1.2 H 0.1 Eos # (Auto) 0.0 0.0 Baso # (Auto) 0.02 0.01 Absolute Neuts (auto) 15.93 H 13.04 H Neutrophils % (Manual) 95 H Lymphocytes % (Manual) 4 L Monocytes % (Manual) 1 Platelet Evaluation Normal Sodium 132 Potassium 3.8 Chloride 88 L Carbon Dioxide 33 Anion Gap 15 BUN 23 H Creatinine 1.3 H Est GFR ( Amer) 50 Est GFR (Non-Af Amer) 41 Random Glucose 84 Calcium 10.9 H Phosphorus 3.7 Magnesium 1.6 L Total Bilirubin 1.1 AST 54 H D ALT 10 Alkaline Phosphatase 122 Total Protein 7.0 Albumin 3.1 Globulin 3.8 Albumin/Globulin Ratio 0.8 L 09/24/18 08:15 WBC RBC Hgb Hct MCV MCH MCHC RDW Plt Count MPV Neut % (Auto) Lymph % (Auto) [place] % (Auto) Eos % (Auto) Baso % (Auto) Lymph # (Auto) [place] # (Auto) Eos # (Auto) Baso # (Auto) Absolute Neuts (auto) Neutrophils % (Manual) Lymphocytes % (Manual) Monocytes % (Manual) Platelet Evaluation Sodium 135 Potassium 4.3 Chloride 95 L Carbon Dioxide 27 Anion Gap 17 BUN 23 H Creatinine 1.3 H Est GFR ( Amer) 50 Est GFR (Non-Af Amer) 41 Random Glucose 93 Calcium 11.0 H Phosphorus 5.3 H Magnesium 1.8 Total Bilirubin 0.8 AST 36 D ALT 8 Alkaline Phosphatase 115 Total Protein 7.2 Albumin 3.3 Globulin 3.9 Albumin/Globulin Ratio 0.8 L Assessment & Plan - Assessment and Plan (Free Text) Assessment: This is a 63 year old female with history of metastatic NSCL cancer, COPD, left pleural effusions who is admitted with back pain s/p fall, dehydration,fecal impaction,leukocytosis and hypercalcemia. Palliative team met with patient to discuss goals of care. The patient has an Advanced Directive naming her friend Saray Rosas as POA. The patient is aware that her cancer is progressing. Does not want to discuss goals of care at this time. States she wishes this would "all go away". Acknowledged that this was dif ficult time for her, explained that palliative services would assist her decision making and goals of care. Psychosocial support provided. I also spoke with Saray Alison via phone. Saray is aware that patient's condition is declining. She recognizes that there are multiple psychosocial issues which need to be addressed. Saray is willing to assist the patient with these issues. Time spent in goals of care and advance care planning with patient and POA, 50 minutes Plan: Goals of care and advance care planning Fecal Impaction: Ducolax BID, would add Mirilax, enemas> Could consider Relistor Hyperecalcemia: Continue IVF's, would increase to 75cc/hr Continue Lopressor, Lasix 20 Solumedrol 30 mg BID PT/OT Dietary counseling
--- NOTE | 2018-09-24 12:32 | CP.PCM.CON ---
History of Present Illness - History of Present Illness History of Present Illness: Easily awaken, no distress Reason for consultation: Cardiac evaluation of tachycardia Brief history of present illness: A 63 year old female who came in to the ER back pain due to fall. Admitted for dehydration.She has not been eating or drinking for the past 5 days prior to admission. History of metastatic lung cancer, COPD, renal insufficiency, fall. Cardiac consult was called to evaluate tachycardia. Seen and examined by me and Dr. Mathews Review of Systems - Review of Systems All systems: reviewed and no additional remarkable complaints except Review of Systems: as per HPI Past Patient History - Infectious Disease Hx of Infectious Diseases: None - Past Social History Smoking Status: Former Smoker - CARDIAC Hx Cardia Arrhythmia: Yes Hx Circulatory Problems: Yes - PULMONARY Hx Respiratory Disorders: Yes Hx Chronic Obstructive Pulmonary Disease (COPD): Yes - NEUROLOGICAL Hx Neurological Disorder: No - HEENT Hx HEENT Problems: No - RENAL Hx Renal Failure: Yes - ENDOCRINE/METABOLIC Hx Endocrine Disorders: No - HEMATOLOGICAL/ONCOLOGICAL Hx Blood Disorders: Yes - INTEGUMENTARY Hx Dermatological Problems: No - MUSCULOSKELETAL/RHEUMATOLOGICAL Hx Falls: Yes (09/22/18) - GASTROINTESTINAL Hx Gastrointestinal Disorders: No - GENITOURINARY/GYNECOLOGICAL Hx Genitourinary Disorders: No - PSYCHIATRIC Hx Substance Use: No - SURGICAL HISTORY Other/Comment: R chest port - ANESTHESIA Hx Anesthesia: Yes Hx Anesthesia Reactions: No Hx Malignant Hyperthermia: No Meds Allergies/Adverse Reactions: Allergies Allergy/AdvReac Type Severity Reaction Status Date / Time No Known Allergies Allergy Verified 08/10/18 13:50 - Medications Medications: Current Medications Alprazolam (Xanax) 0.25 mg PO BID [facility]; Protocol Stop: 09/30/18 22:16 Last Admin: 09/24/18 10:01 Dose: 0.25 mg Furosemide (Lasix) 20 mg IVP DAILY [facility] Last Admin: 09/24/18 10:01 Dose: 20 mg Meropenem (Merrem Iv 1 Gm Premix) 1 gm in 50 mls @ 100 mls/hr IVPB Q12 [facility]; Protocol Stop: 09/30/18 22:01 Last Admin: 09/24/18 10:00 Dose: 100 mls/hr Sodium Chloride (Sodium Chloride 0.9%) 1,000 mls @ 60 mls/hr IV .[id number] [facility] Last Admin: 09/23/18 22:00 Dose: 60 mls/hr Ipratropium [place] (Atrovent) 0.5 mg IH [id number] [facility] Last Admin: 09/24/18 07:46 Dose: 0.5 mg Levalbuterol HCl (Xopenex) 0.63 mg IH TIDRESP [facility] Last Admin: 09/24/18 07:46 Dose: 0.63 mg Methylprednisolone (Solu-Medrol) 30 mg IVP Q12 [facility] Last Admin: 09/24/18 10:00 Dose: 30 mg Metoprolol Tartrate (Lopressor) 50 mg PO BID [facility] Last Admin: 09/24/18 10:01 Dose: 50 mg Morphine Sulfate (Morphine) 1 mg IVP Q4H PRN PRN Reason: Pain, moderate (4-7) Last Admin: 09/24/18 05:50 Dose: 1 mg Morphine Sulfate (Morphine Extended Release Tab) 15 mg PO TID [facility] Last Admin: 09/24/18 10:00 Dose: 15 mg Pantoprazole Sodium (Protonix Inj) 40 mg IVP Q12 [facility] Last Admin: 09/24/18 10:00 Dose: 40 mg Physical Exam - Constitutional Appears: Non-toxic, No Acute Distress - Head Exam Head Exam: NORMAL INSPECTION, NORMOCEPHALIC - Eye Exam Eye Exam: Normal appearance Pupil Exam: NORMAL ACCOMODATION - ENT Exam ENT Exam: Mucous Membranes Dry - Respiratory Exam Respiratory Exam: Decreased Breath Sounds, Clear to Auscultation Bilateral, NORMAL BREATHING PATTERN - Cardiovascular Exam Cardiovascular Exam: Tachycardia, +S1, +S2 Additional comments: right chest port - GI/Abdominal Exam GI & Abdominal Exam: Normal Bowel Sounds, Soft - Neurological Exam Neurological exam: Alert, Oriented x3 - Psychiatric Exam Psychiatric exam: Normal Affect, Normal Mood - Skin Skin Exam: Dry, Normal Color, Warm Results - Vital Signs Recent Vital Signs: Last Vital Signs Temp 97.3 F L 09/24/18 08:02 Pulse 120 H 09/24/18 10:01 Resp 20 09/24/18 08:02 BP 103/68 09/24/18 10:01 Pulse Ox 98 09/24/18 08:02 - Labs Result Diagrams: 09/24/18 08:15 09/24/18 08:15 Labs: Laboratory Results - last 24 hr 09/23/18 09/23/18 09/24/18 14:40 14:40 08:15 WBC 19.2 H D 13.6 H D RBC 3.75 3.84 Hgb 10.7 L 10.8 L Hct 34.3 L 35.4 L MCV 91.5 92.2 MCH 28.5 28.1 MCHC 31.2 30.5 L RDW 17.1 H 17.3 H Plt Count 265 324 MPV 8.6 8.7 Neut % (Auto) 83.1 H 95.9 H Lymph % (Auto) 10.5 L 3.4 L [place] % (Auto) 6.1 H 0.6 L Eos % (Auto) 0.2 L 0.0 L Baso % (Auto) 0.1 0.1 Lymph # (Auto) 2.0 0.5 L [place] # (Auto) 1.2 H 0.1 Eos # (Auto) 0.0 0.0 Baso # (Auto) 0.02 0.01 Absolute Neuts (auto) 15.93 H 13.04 H Neutrophils % (Manual) 95 H Lymphocytes % (Manual) 4 L Monocytes % (Manual) 1 Platelet Evaluation Normal Sodium 132 Potassium 3.8 Chloride 88 L Carbon Dioxide 33 Anion Gap 15 BUN 23 H Creatinine 1.3 H Est GFR ( Amer) 50 Est GFR (Non-Af Amer) 41 Random Glucose 84 Calcium 10.9 H Phosphorus 3.7 Magnesium 1.6 L Total Bilirubin 1.1 AST 54 H D ALT 10 Alkaline Phosphatase 122 Total Protein 7.0 Albumin 3.1 Globulin 3.8 Albumin/Globulin Ratio 0.8 L 09/24/18 08:15 WBC RBC Hgb Hct MCV MCH MCHC RDW Plt Count MPV Neut % (Auto) Lymph % (Auto) [place] % (Auto) Eos % (Auto) Baso % (Auto) Lymph # (Auto) [place] # (Auto) Eos # (Auto) Baso # (Auto) Absolute Neuts (auto) Neutrophils % (Manual) Lymphocytes % (Manual) Monocytes % (Manual) Platelet Evaluation Sodium 135 Potassium 4.3 Chloride 95 L Carbon Dioxide 27 Anion Gap 17 BUN 23 H Creatinine 1.3 H Est GFR ( Amer) 50 Est GFR (Non-Af Amer) 41 Random Glucose 93 Calcium 11.0 H Phosphorus 5.3 H Magnesium 1.8 Total Bilirubin 0.8 AST 36 D ALT 8 Alkaline Phosphatase 115 Total Protein 7.2 Albumin 3.3 Globulin 3.9 Albumin/Globulin Ratio 0.8 L Assessment & Plan - Assessment and Plan (Free Text) Assessment: A 63 year old female who came in to the ER back pain due to fall. Admitted for dehydration.She has not been eating or drinking for the past 5 days prior to admission. 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 Cardiac consult was called to evaluate tachycardia. MUGA scan done on 02/18/18 showed LVEF of 35% moderate LV dysfunction and diffuse hypokinesis. Echo done on 07/29/18 and showed LVEF of 55%,moderately dilated RV, mild AR/MR, moderate TR, RVSP 57mmHg. Tachycardia on Metoprolol. Will changed to Atenolol. Continue IV hydration. Plan: No distress Tachycardia 110-120's Discontinue Lopressor and changed to Atenolol 25 mg BID Continue IV hydration Lasix 20 mg daily,Solumedrol 30 mg BID, Continue current treatment Continue current medications Further recommendations during hospital course Will follow up Plan and treatment discussed with Dr. Mathews Thank you Dr. Wood for the opportunity of taking care of Elsa Pablo - Date & Time Date: 09/24/18 Time: 07:15
--- NOTE | 2018-09-24 14:46 | CON ---
DATE: 09/24/2018 PULMONARY CONSULTATION NOTE REFERRING PHYSICIAN: Christine Wood MD REASON FOR CONSULTATION: COPD and shortness of breath. HISTORY OF PRESENT ILLNESS: This is a 63-year-old female known to us from previous admission with past medical history significant for COPD, pulmonary hypertension, stage IV squamous cell carcinoma, chronic anemia, acute renal failure, ADD. The patient came to emergency room complaining of back pain status post fall, the patient slipped and fell at home and hit her head, hips and back. It is reported the patient did not lose consciousness. The patient also while at home had not been eating or drinking for about 5 days. The patient has history of being chemotherapy for the past year receiving radiation to the left lung. Currently on Opdivo third-line chemotherapy, her last dose was about 2 weeks ago. PAST MEDICAL HISTORY: Chronic obstructive pulmonary disease, stage IV squamous cell carcinoma on chemotherapy with radiation in the past, hypertension, acute renal failure, chronic anemia, ADD, port placement, pulmonary hypertension, and right adrenal biopsy. FAMILY HISTORY: No significant cardiopulmonary disease reported. SOCIAL HISTORY: Former smoker. No EtOH abuse. No illicit drug use. ALLERGIES: NO KNOWN ALLERGIES. MEDICATIONS: Reviewed. Xanax 0.25 mg twice a day, Lasix 20 mg IV push daily, Atrovent 0.5 mg inhalation every 6 hours, Xopenex 0.63 mg inhalation three times a day, meropenem 1 g every 12 hours, Solu-Medrol 30 mg every 12 hours, metoprolol tartrate 50 mg twice a day, morphine sulfate 1 mg IV push every 4 hours p.r.n, morphine sulfate 15 mg three times a day, Protonix 40 mg IV push every 12 hours, and sodium chloride 0.9% a 1000 mL at 60 mL per hour. REVIEW OF SYSTEMS: No headache, rhinitis, cough, chest pain, abdominal pain, nausea, vomiting, diarrhea, leg pain or leg swelling reported. The patient does report having back pain and generalized body pain. Reports shortness of breath, reports poor appetite. Reports no bowel movement. PHYSICAL EXAMINATION GENERAL: No acute distress. VITAL SIGNS: Blood pressure 103/68, pulse 104, temperature 97.3 and oxygen saturation 98% on nasal cannula. HEENT: Crowded airway. Mallampati score of 4. NECK: Supple. No JVD. RESPIRATORY: Decreased breath sounds on the left. Few scattered rhonchi. CARDIOVASCULAR: S1 and S2. ABDOMEN: Soft and nontender. No distention. EXTREMITIES: No bilateral lower extremity edema. NEUROLOGIC: Awake, alert, verbal, and following commands. LABORATORY DATA: Reviewed. WBC 13.6, RBC 3.84, hemoglobin 10.8, hematocrit 35.4, and platelets 324. Sodium 135, potassium 4.3, chloride 95, carbon dioxide 27, anion gap 17, BUN 23, creatinine 1.3, GFR 41, random glucose 93, calcium 11, phosphorus 5.3, magnesium 1.8, total bilirubin 0.8, AST 36, ALT 8, alkaline phosphatase 115, total protein 7.2, albumin 3.2, globulin 3.9 and albumin-globulin ratio 0.8. Head CT showed no acute intracranial abnormalities. Diffuse sclerotic and lytic abnormalities with respect to metastatic disease should be considered. Hip and pelvis x-ray shows no acute displaced fractures or dislocation. Limited exam due to severe fecal impaction. Lumbar spine x-ray shows limited exam due to fecal impaction, no acute fracture. Chest CT shows progressive tumor burden in the thorax primarily mediastinal and hilar adenopathy. Additional sclerotic and lytic lesions identified. Vertebral bodies and ribs new pulmonary nodules or metastasis right lung. ASSESSMENT AND PLAN: Stage IV lung cancer progressive disease, chronic obstructive pulmonary disease, pulmonary hypertension, attention deficit disorder, chronic renal insufficiency, left adrenal metastasis, chronic anemia, history or renal failure. Agree with getting procalcitonin level. We will review when available. Continue inhaled bronchodilators. Continue gastric prophylaxis. Continue broad spectrum antibiotic therapy. We will order orthostatic vital signs for 24 hours. We will order Dulcolax suppositories twice a day to be given until the patient has bowel movement. This is to be given for fecal impaction noted on x-rays. Fall precautions. Monitor pulse oximetry. We will order venous Doppler to be done. Rule out deep venous thrombosis. We will place the patient on low dose heparin due to anemia for deep venous thrombosis prophylaxis. Repeat CBC in the morning. We do suspect sleep apnea in this patient. Recommend the patient have sleep studies as outpatient. Recommend full pulmonary function test to assess chronic lung disease. Head of bed elevated at 45 degrees and, sleep apnea precaution. This patient was seen and examined with Dr. Hector. Discussed assessment and plan as described above. This patient was seen and examined with Derek Prudence, nurse practitioner. Discussed assessment and plan as described above. Thank you for this consult and we will follow with you. Derek Ellis APN Nikita Hector MD [place]
[2018-09-24 16:05] VITALS: BMI 18.3
[2018-09-24] MEDS: POLYETHYLENE GLYCOL 3350 17 GM/Dose PACKET PO SCH (18:25)
[2018-09-24] MEDS ORDERED: Pantoprazole 40 mg EC Tab PO SCH (22:00)
--- NOTE | 2018-09-25 00:13 | CON ---
DATE: 09/24/2018 CHIEF COMPLAINT: Back pain times several days. HISTORY OF PRESENT ILLNESS: This is a 63-year-old female with chronic respiratory failure on home O2 therapy, chronic obstructive lung disease, she has got stage IV lung cancer with metastases to the bone, on chemotherapy and radiation, and kidney disease. She has had Escherichia coli urinary tract infection and was admitted with back pain and shortness of breath. No fevers. No chills. No headaches. No abdominal pain or diarrhea or constipation. REVIEW OF SYSTEMS: Reveals a 12-point review of system was performed. PAST MEDICAL HISTORY: Significant for stage IV lung cancer with metastases to the bone and chronic obstructive lung disease, chronic respiratory failure on home O2 therapy, kidney disease, and Escherichia coli urinary tract infection. PAST SURGICAL HISTORY: Significant a hernia surgery. ALLERGIES: PATIENT HAS NO KNOWN ALLERGIES. MEDICATIONS: Reviewed. PHYSICAL EXAMINATION GENERAL: Patient is in bed appearing chronically ill, debilitated stage. VITAL SIGNS: Temperature of 98 with heart rate of 120, respiratory rate of 19, and blood pressure 107/73. HEENT: Unremarkable. NECK: Supple. LUNGS: Decreased breath sounds. HEART: Normal S1 and S2. ABDOMEN: Soft and nontender. No rebound. No guarding. No masses. LABORATORY DATA: Reveals a white count of 19,200, hemoglobin of 10, and platelets of 265. BUN of 23, creatinine of 1.3. Patient has had elevated creatinine on past admissions. Patient's calcium is 10.9. Procalcitonin is 0.93. Microbiology is pending. Patient had a CAT scan of the chest, which showed a progression of the cancer with bone metastases, mediastinal and hilar adenopathy. He has obstructive atelectasis beyond the lobar branch. Patient also had an ultrasound of the extremities is pending. ASSESSMENT AND PLAN: A 63-year-old female with stage IV lung cancer with bone metastases, kidney disease, Escherichia coli history, urinary tract infection, chronic respiratory failure, chronic obstructive pulmonary disease on therapy presenting with shortness of breath, leukocytosis, tachycardia. Sepsis with obstructive healthcare-associated pneumonia. We will treat the patient with vancomycin intermittently and meropenem with an elevated procalcitonin and pending blood cultures, urine cultures, sputum cultures. Overall prognosis is quite poor for this patient who has a body mass index of only 18 and there is cachectic endstage wasting and little muscle mass. Eliezer Stuart MD
[2018-09-25] MEDS: Morphine 2 mg/ml ISec IVP PRN ×5 (00:46→17:19)
[2018-09-25] MEDS: Ipratropium 0.02% Inhal Soln (0.5 mg/2.5 ml) UD IH SCH ×4 (02:37→19:29)
[2018-09-25 06:38] LABS: HEMOGLOBIN 9.6 g/dL (12.0-16.0); LYMPH # 0.4 (1.2-3.4); LYMPH % 3.6 % (22.0-35.0); MEAN CORPUSCULAR HEMOGLOBIN 27.9 pg (25.0-35.0); MEAN CORPUSCULAR HGB CONC 30.7 g/dl (31.0-37.0); MEAN PLATELET VOLUME 8.8 fl (7.0-11.0); MONO # 0.4 (0.1-0.6); RBC 3.44 10^6/uL (3.5-6.1); RED CELL DISTRIBUTION WIDTH 17.2 % (11.5-14.5); WHITE BLOOD COUNT 12.1 10^3/uL (4.5-11.0)
[2018-09-25 07:17] LABS: ALB/GLOB RATIO 0.8 (1.1-1.8); ALBUMIN 2.9 g/dL (3.0-4.8); CALCIUM 9.6 mg/dL (8.4-10.5)
[2018-09-25] MEDS: Levalbuterol 0.63 MG/3 ML Inhal Soln UD IH SCH ×3 (07:56→19:29)
[2018-09-25] MEDS: POLYETHYLENE GLYCOL 3350 17 GM/Dose PACKET PO SCH ×2 (09:53→17:20)
[2018-09-25] MEDS: Morphine 15 mg SR Tab PO SCH ×4 (09:54→22:03)
[2018-09-25] MEDS: Meropenem IV 1 gm in NS 1 GM/50 ML BAG IVPB SCH ×2 (09:56→22:02)
[2018-09-25] MEDS: MethylPREDNISolone 40 mg Vial IVP SCH ×2 (09:56→22:08)
--- NOTE | 2018-09-25 13:05 | PN ---
DATE: 09/25/2018 REFERRING PHYSICIAN: Christine Wood MD SUBJECTIVE: The patient is seen sitting up in bed, eating breakfast. States she feels slightly better this morning. Cough is better. Still has shortness of breath. No headache, rhinitis, chest pain, abdominal pain, nausea, vomiting, diarrhea, leg pain or leg swelling reported. OBJECTIVE: VITAL SIGNS: Blood pressure 136/86, pulse 102, temperature 97.3, oxygen saturation 98% on nasal cannula. GENERAL: No acute distress. HEENT: Moist mucous membranes. Mallampati score of 4. Crowded airway. NECK: Supple. No JVD. RESPIRATORY: Few scattered rhonchi. Decreased breath sounds. CARDIOVASCULAR: S1 and S2. ABDOMEN: Soft and nontender. No distention. EXTREMITIES: No bilateral lower extremity edema. NEUROLOGIC: Awake, alert, and verbal. Following commands. MEDICATIONS: Reviewed. Xanax 0.25 mg twice a day, atenolol 25 mg twice a day, heparin 5000 units subcutaneous every 12 hours, Atrovent 0.5 mg inhalation every 6 hours, Xopenex 0.63 mg inhalation three times a day, meropenem 1 g every 12 hours, Solu-Medrol 30 mg IV push every 12 hours, morphine 1 mg IV push every 4 hours p.r.n., morphine 15 mg p.o. three times a day, MiraLax 17 g twice a day, propranolol 10 mg three times a day, sodium chloride 0.9% at 1000 mL of 60 mL/hour. LABORATORY DATA: Reviewed. WBC 12.1, RBC 3.44, hemoglobin 9.6, hematocrit 31.3, platelets 327. Sodium 134, potassium 3.9, chloride 97, carbon dioxide 30, anion gap of 11, BUN 36, creatinine 1.7, GFR 30, random glucose 173, calcium 9.6, phosphorus 4.9, magnesium 1.9, total bilirubin 0.4, AST 45, ALT 9, alkaline phosphatase 92, total protein 6.5, albumin 2.9, globulin 3.5, albumin-globulin ratio 0.8. TSH 4.14. Blood cultures preliminary, no growth after 24 hours. Extremity ultrasound shows no sonographic evidence of deep venous thrombosis in bilateral lower extremities. IMPRESSION AND PLAN: Stage IV lung cancer progressive disease, chronic obstructive pulmonary disease, pulmonary hypertension, attention deficit disorder, chronic renal insufficiency, left adrenal metastasis, chronic anemia, history of renal failure. Procalcitonin positive . Continue antibiotics per Infectious Disease. We will add Pepcid 40 mg at bedtime, Protonix was discontinued. The patient should be on gastric prophylaxis. Continue deep venous thrombosis prophylaxis, fall precautions, head of the bed elevated 45 degrees. Continue inhaled bronchodilators, current steroid dosing. We recommend the patient to have sleep study as outpatient and pulmonary function test as outpatient. This patient was seen and examined with Dr. Hector. Discussed assessment and plan as described above. This patient was seen and examined with Rhonda Reed, nurse practitioner. Discussed assessment and plan as described above. Thank you for this consult. We will follow with you. Derek Ellis APN Nikita Hector MD
--- NOTE | 2018-09-25 13:05 | CP.PCM.CON ---
<AlvaradoFabby - Last Filed: 09/25/18 14:07> History of Present Illness - History of Present Illness History of Present Illness: Consult Note for Dr. Miranda Service 63 female with a past medical history of COPD, CKD, metastatic lung scc on chemotherapy (last received 2 weeks ago) that presented to the ED 2 days ago with back pain status post mechanical fall after slipping and hitting her head, hips and back without LOC. Family reported patient has not been eating or drinking for the past week. She was was recently admitted to [facility] (08/[facility]) for dehydration. Nephrology was consulted for evaluation of FAMILIA in setting of CKD 4. Patient was seen and examined at bedside. Patient has complaints of a bloody nose an constipation. Patient reports general weakness but denies any fevers, chills, headache, lightheadedness, shortness of breath, chest pains, abdominal pain, nausea, vomiting, diarrhea, or dysuria. PMHx: COPD, stage 4 lung ca on Opdivo, L pleural effusion, L adrenal mass, post obstructive pneumonitis, ADHD PSHx: Breast reduction (1999), Inguinal hernia repair (2011), Port [place] cath (2017) SHx: Former heavy smoker, denies EtOH or drug use. Lives with teenage son. FamHx: Sister: from Leukemia age 32, Dad-HTN/DM, Mom- HTN Meds: MAR Reviewed Allergies: NKDA Review of Systems - Review of Systems Review of Systems: as per HPI otherwise negative Past Patient History - Infectious Disease Hx of Infectious Diseases: None - Past Social History Smoking Status: Former Smoker - CARDIAC Hx Cardia Arrhythmia: Yes Hx Circulatory Problems: Yes - PULMONARY Hx Respiratory Disorders: Yes Hx Chronic Obstructive Pulmonary Disease (COPD): Yes - NEUROLOGICAL Hx Neurological Disorder: No - HEENT Hx HEENT Problems: No - RENAL Hx Renal Failure: Yes - ENDOCRINE/METABOLIC Hx Endocrine Disorders: No - HEMATOLOGICAL/ONCOLOGICAL Hx Blood Disorders: Yes - INTEGUMENTARY Hx Dermatological Problems: No - MUSCULOSKELETAL/RHEUMATOLOGICAL Hx Falls: Yes (09/22/18) - GASTROINTESTINAL Hx Gastrointestinal Disorders: No - GENITOURINARY/GYNECOLOGICAL Hx Genitourinary Disorders: No - PSYCHIATRIC Hx Substance Use: No - SURGICAL HISTORY Other/Comment: R chest port - ANESTHESIA Hx Anesthesia: Yes Hx Anesthesia Reactions: No Hx Malignant Hyperthermia: No Meds Home Medications: Home Medication List Medication Instructions Recorded Confirmed Type Propranolol [Inderal] 10 mg PO TID #90 tab 09/25/18 Rx Allergies/Adverse Reactions: Allergies Allergy/AdvReac Type Severity Reaction Status Date / Time No Known Allergies Allergy Verified 08/10/18 13:50 - Medications Medications: Current Medications Alprazolam (Xanax) 0.25 mg PO BID [facility]; Protocol Stop: 09/30/18 22:16 Last Admin: 09/25/18 09:54 Dose: 0.25 mg Atenolol (Tenormin) 25 mg PO BID [facility] Famotidine (Pepcid) 40 mg PO HS [facility] Heparin Sodium (Porcine) (Heparin) 5,000 units SC Q12 [facility]; Protocol Last Admin: 09/25/18 09:56 Dose: 5,000 units Meropenem (Merrem Iv 1 Gm Premix) 1 gm in 50 mls @ 100 mls/hr IVPB Q12 [facility]; Protocol Stop: 09/30/18 22:01 Last Admin: 09/25/18 09:56 Dose: 100 mls/hr Sodium Chloride (Sodium Chloride 0.9%) 1,000 mls @ 60 mls/hr IV .[id number] [facility] Last Admin: 09/23/18 22:00 Dose: 60 mls/hr Ipratropium [place] (Atrovent) 0.5 mg IH [id number] [facility] Last Admin: 09/25/18 07:55 Dose: 0.5 mg Levalbuterol HCl (Xopenex) 0.63 mg IH TIDRESP [facility] Last Admin: 09/25/18 07:56 Dose: 0.63 mg Methylprednisolone (Solu-Medrol) 30 mg IVP Q12 [facility] Last Admin: 09/25/18 09:56 Dose: 30 mg Morphine Sulfate (Morphine) 1 mg IVP Q4H PRN PRN Reason: Pain, moderate (4-7) Last Admin: 09/25/18 10:57 Dose: 1 mg Morphine Sulfate (Morphine Extended Release Tab) 15 mg PO TID [facility] Last Admin: 09/25/18 09:54 Dose: 15 mg Polyethylene Glycol (Miralax) 17 gm PO BID [facility] Last Admin: 09/25/18 09:53 Dose: 17 gm Propranolol HCl (Inderal) 10 mg PO TID [facility] Last Admin: 09/25/18 09:54 Dose: 10 mg Physical Exam - Constitutional Appears: Cachectic, Chronically Ill - Head Exam Head Exam: ATRAUMATIC, NORMAL INSPECTION, NORMOCEPHALIC - Eye Exam Eye Exam: EOMI, Normal appearance, PERRL Pupil Exam: NORMAL ACCOMODATION, PERRL - ENT Exam ENT Exam: Mucous Membranes Dry Additional comments: + epistaxis - Respiratory Exam Respiratory Exam: Decreased Breath Sounds, Clear to Auscultation Bilateral, NORMAL BREATHING PATTERN - Cardiovascular Exam Cardiovascular Exam: Tachycardia, +S1, +S2 - GI/Abdominal Exam GI & Abdominal Exam: Normal Bowel Sounds, Soft. absent: Tenderness - Extremities Exam Extremities exam: Positive for: normal inspection - Neurological Exam Neurological exam: Alert, CN II-XII Intact, Normal Gait, Oriented x3, Reflexes Normal - Psychiatric Exam Psychiatric exam: Agitated - Skin Skin Exam: Dry, Intact, Normal Color, Warm Results - Vital Signs Recent Vital Signs: Last Vital Signs Temp 97.3 F L 09/25/18 08:21 Pulse 102 H 09/25/18 09:54 Resp 20 09/25/18 08:21 BP 136/85 09/25/18 09:54 Pulse Ox 98 09/25/18 08:21 - Labs Result Diagrams: 09/25/18 05:55 09/25/18 05:55 Labs: Laboratory Results - last 24 hr 09/23/18 09/25/18 09/25/18 23:20 05:55 05:55 WBC 12.1 H RBC 3.44 L Hgb 9.6 L Hct 31.3 L MCV 91.0 MCH 27.9 MCHC 30.7 L RDW 17.2 H Plt Count 327 MPV 8.8 Neut % (Auto) 93.4 H Lymph % (Auto) 3.6 L [place] % (Auto) 3.0 Eos % (Auto) 0.0 L Baso % (Auto) 0.0 Lymph # (Auto) 0.4 L [place] # (Auto) 0.4 Eos # (Auto) 0.0 Baso # (Auto) 0.00 Absolute Neuts (auto) 11.31 H Sodium 134 Potassium 3.9 Chloride 97 L Carbon Dioxide 30 Anion Gap 11 BUN 36 H Creatinine 1.7 H Est GFR ( Amer) 37 Est GFR (Non-Af Amer) 30 Random Glucose 173 H Calcium 9.6 Phosphorus 4.9 H Magnesium 1.9 Total Bilirubin 0.4 AST 45 H D ALT 9 Alkaline Phosphatase 92 Total Protein 6.5 Albumin 2.9 L Globulin 3.5 Albumin/Globulin Ratio 0.8 L Procalcitonin 0.93 H TSH 3rd Generation 09/25/18 05:55 WBC RBC Hgb Hct MCV MCH MCHC RDW Plt Count MPV Neut % (Auto) Lymph % (Auto) [place] % (Auto) Eos % (Auto) Baso % (Auto) Lymph # (Auto) [place] # (Auto) Eos # (Auto) Baso # (Auto) Absolute Neuts (auto) Sodium Potassium Chloride Carbon Dioxide Anion Gap BUN Creatinine Est GFR ( Amer) Est GFR (Non-Af Amer) Random Glucose Calcium Phosphorus Magnesium Total Bilirubin AST ALT Alkaline Phosphatase Total Protein Albumin Globulin Albumin/Globulin Ratio Procalcitonin TSH 3rd Generation 4.14 Assessment & Plan - Assessment and Plan (Free Text) Assessment: 1. Sepsis with hcap 2. stage 4 lung ca on opdivo 3. End -stage COPD 4. FAMILIA in setting of CKD 3 3. Anemia 4. Hypercalcemia 5. Pulmonary HTN 6. ADHD 7. Anxiety 8. Constipation plan: Patient is sitting comfortably. She is on abx for her sepsis, merrem and intermittent vancomycin as per ID, pending cultures. Patient had her last Opdivo 2 weeks ago, Dr. Wood following. CTH : No acute abnormalities. Diffuse sclerotic and lytic abnormalities in calvarium. X rays of hip/pelvis/lumbar spine: No acute fractures or dislocations. Severe fecal impaction in the colon. Chest CT: Progressive tumor burden in the thorax, primarily mediastinal and sunita r adenopathy, sclerotic and lytic lesions in ribs and vertebral bodies. New pulmonary nodules /metastasis in right lung Echo done on 07/29/18 and showed LVEF of 55%,moderately dilated RV, mild AR/MR, moderate TR, RVSP 57mmHg. Patient was on lasix 20 mg IV daily that has been DC'ed, and continue with IVF NS@60 ml/hr at this time for her FAMILIA in the setting of CKD 3. Albumin noted to be 2.9 and hypercalcemia will continue IVF. Will further evaluate anemia and reassess. Patient is on propranolol 10 TID which should also address her sinus tachycardia. Will continue spiriva, solumedrol, ipatropium and xopenex for COPD. Patient is on xanax for anxiety. Patient is on lactulose and miralax for consti pation. Patient has poor nutritional status. Renal diet. DVT ppx with heparin, and pain control regimen with morphine. Seen reviewed and discussed with Dr. Miranda <Alejandro Miranda - Last Filed: 09/25/18 15:40> Meds - Medications Medications: Current Medications Alprazolam (Xanax) 0.25 mg PO BID [facility]; Protocol Stop: 09/30/18 22:16 Last Admin: 09/25/18 09:54 Dose: 0.25 mg Atenolol (Tenormin) 25 mg PO BID [facility] Famotidine (Pepcid) 40 mg PO HS [facility] Heparin Sodium (Porcine) (Heparin) 5,000 units SC Q12 [facility]; Protocol Last Admin: 09/25/18 09:56 Dose: 5,000 units Meropenem (Merrem Iv 1 Gm Premix) 1 gm in 50 mls @ 100 mls/hr IVPB Q12 [facility]; Protocol Stop: 09/30/18 22:01 Last Admin: 09/25/18 09:56 Dose: 100 mls/hr Sodium Chloride (Sodium Chloride 0.9%) 1,000 mls @ 60 mls/hr IV .[id number] [facility] Last Admin: 09/23/18 22:00 Dose: 60 mls/hr Ipratropium [place] (Atrovent) 0.5 mg IH [id number] [facility] Last Admin: 09/25/18 13:36 Dose: 0.5 mg Levalbuterol HCl (Xopenex) 0.63 mg IH TIDRESP [facility] Last Admin: 09/25/18 13:36 Dose: 0.63 mg Methylprednisolone (Solu-Medrol) 30 mg IVP Q12 [facility] Last Admin: 09/25/18 09:56 Dose: 30 mg Morphine Sulfate (Morphine) 1 mg IVP Q2 PRN PRN Reason: Pain, moderate (4-7) Last Admin: 09/25/18 13:11 Dose: 1 mg Morphine Sulfate (Morphine Extended Release Tab) 15 mg PO QID [facility] Last Admin: 09/25/18 15:01 Dose: 15 mg Polyethylene Glycol (Miralax) 17 gm PO BID [facility] Last Admin: 09/25/18 09:53 Dose: 17 gm Propranolol HCl (Inderal) 10 mg PO TID [facility] Last Admin: 09/25/18 15:01 Dose: 10 mg Results - Vital Signs Recent Vital Signs: Last Vital Signs Temp 97.3 F L 09/25/18 08:21 Pulse 90 09/25/18 15:01 Resp 20 09/25/18 08:21 BP 123/79 09/25/18 15:01 Pulse Ox 98 09/25/18 08:21 - Labs Result Diagrams: 09/25/18 05:55 09/25/18 05:55 Labs: Laboratory Results - last 24 hr 09/25/18 09/25/18 09/25/18 05:55 05:55 05:55 WBC 12.1 H RBC 3.44 L Hgb 9.6 L Hct 31.3 L MCV 91.0 MCH 27.9 MCHC 30.7 L RDW 17.2 H Plt Count 327 MPV 8.8 Neut % (Auto) 93.4 H Lymph % (Auto) 3.6 L [place] % (Auto) 3.0 Eos % (Auto) 0.0 L Baso % (Auto) 0.0 Lymph # (Auto) 0.4 L [place] # (Auto) 0.4 Eos # (Auto) 0.0 Baso # (Auto) 0.00 Absolute Neuts (auto) 11.31 H Sodium 134 Potassium 3.9 Chloride 97 L Carbon Dioxide 30 Anion Gap 11 BUN 36 H Creatinine 1.7 H Est GFR ( Amer) 37 Est GFR (Non-Af Amer) 30 Random Glucose 173 H Calcium 9.6 Phosphorus 4.9 H Magnesium 1.9 Iron TIBC % Saturation Total Bilirubin 0.4 AST 45 H D ALT 9 Alkaline Phosphatase 92 Total Protein 6.5 Albumin 2.9 L Globulin 3.5 Albumin/Globulin Ratio 0.8 L TSH 3rd Generation 4.14 09/25/18 05:55 WBC RBC Hgb Hct MCV MCH MCHC RDW Plt Count MPV Neut % (Auto) Lymph % (Auto) [place] % (Auto) Eos % (Auto) Baso % (Auto) Lymph # (Auto) [place] # (Auto) Eos # (Auto) Baso # (Auto) Absolute Neuts (auto) Sodium Potassium Chloride Carbon Dioxide Anion Gap BUN Creatinine Est GFR ( Amer) Est GFR (Non-Af Amer) Random Glucose Calcium Phosphorus Magnesium Iron 53 TIBC 160 L % Saturation 33 Total Bilirubin AST ALT Alkaline Phosphatase Total Protein Albumin Globulin Albumin/Globulin Ratio TSH 3rd Generation Assessment & Plan - Assessment and Plan (Free Text) Assessment: Pt seen and examined by me. I have reviewed the note of the emergency medical technician/driver and I agree with it. I have discussed the assessment and plan with the resident. I have reviewed the medications and the last labs.
[2018-09-25] MEDS ORDERED: Morphine 15 mg SR Tab PO SCH ×2 (14:00→14:41)
[2018-09-25 15:25] LABS: IRON 53 ug/dL (45-180)
[2018-09-25 15:34] LABS: % IRON SATURATION 33 % (20-55); TOTAL IRON BINDING CAPACITY 160 ug/dL (265-497)
--- NOTE | 2018-09-25 23:25 | PN ---
DATE: 09/25/2018 REASON FOR CONSULTATION: Cardiac evaluation, sinus tachycardia. SUBJECTIVE: The patient denies any chest pain, shortness of breath, or any palpitation. OBJECTIVE: GENERAL: Not in apparent distress. VITAL SIGNS: Temperature afebrile, heart rate 82, blood pressure 131/87. HEENT: PERRLA. Extraocular muscles intact. NECK: Supple. No carotid bruits or thyromegaly. CHEST: Clear to auscultation. HEART: S1 and S2. Regular. ABDOMEN: Soft. EXTREMITIES: Clubbing, cyanosis negative. LABORATORY DATA: Blood workup as follows: WBC 12, hemoglobin 10, hematocrit 31.3, platelet count 326. Chemistry shows sodium 134, potassium 3.9, chloride 97, carbon dioxide 30, anion gap of 11, BUN 36, creatinine 1.7. IMPRESSION: A 63-year-old female with past medical history significant for chronic obstructive pulmonary disease, lung cancer, renal insufficiency, admitted after having diarrhea and not eating, drinking adequately. 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 The patient was tachycardic, hypotensive, responded to intravenous fluids. The patient was on beta codi 25 mg p.o. b.i.d., metoprolol, but, however, the blood pressure was low and did not respond even 50 mg. Prior to that, the patient was on Coreg which was discontinued, metoprolol discontinued, started atenolol but due to the patient's low blood pressure, we changed to propranolol 10 mg p.o. t.i.d. Now heart rate is much better controlled. The patient's recent MUGA scan done dated 02/18/2018, ejection fraction 35%, moderate left ventricular dysfunction, diffuse hypokinesis, that is why the patient was restarted on Coreg, but to control the heart rate, this got changed to metoprolol, but still the patient is tachycardiac and cannot increase metoprolol to 50 because of low blood pressure, so it was discontinued and was changed to propranolol 10 mg p.o. t.i.d. Discussed with Dr. Wood, discussed with the patient. Prescription left in the chart. Upon discharge, the patient will continue at home 10 mg of propranolol three times a day. Most recent echo dated 07/29/2018, ejection fraction 55%,moderately dilated right ventricle, mild aortic regurgitation, mitral regurgitation, moderate tricuspid regurgitation right ventricular systolic pressure of 57 mmHg. In the interim, continue also Solu-Medrol. Continue gentle hydration. We will follow with you. Thank you, Dr. Wood, providing us opportunity in taking care of the patient, Elsa Quinn. Nikita Mathews MD
[2018-09-26] MEDS: Morphine 2 mg/ml ISec IVP PRN ×3 (00:13→13:08)
--- NOTE | 2018-09-26 00:14 | CON ---
DATE: 09/25/2018 HISTORY OF PRESENT ILLNESS: The patient was seen and examined. I do agree with the note of the medical staff services manager. I was involved in the plan of care. I have been asked consults for this patient by Dr. Wood. The reason for evaluation is for her acute kidney injury. She is currently admitted to the hospital because of sepsis from hospital-acquired pneumonia. She has stage IV lung CA and is getting treatment from her oncologist, Dr. Wood. She has COPD and is getting DuoNeb treatment. She had an echo that showed EF of 55% in 07/2018. I did review her old records. She has new pulmonary nodules and metastatic disease in the lung. The patient has acute kidney injury with underlying CKD stage III. She has hypocalcemia and that has improved with hydration. She is continuing with normal saline. Her leukocytosis has improved. She states she does not have any significant pain. Currently, she is receiving meropenem for antibiotics. She is on Solu-Medrol for her COPD. She is on morphine for pain. She is on MiraLax for constipation. She is on heparin for DVT prophylaxis. LABORATORY DATA: Reviewed. Her white count is 12.1 and she is afebrile. She does have constipation and takes MiraLax and lactulose. She has poor nutrition. She has low albumin and weight is 88 pounds. PLAN: She is advised to increase her p.o. intake. She says she is not hungry. She is asking about going home to her son who as she is a sole provider and cooker sulfate. Alejandro Miranda MD
--- NOTE | 2018-09-26 01:14 | PN ---
DATE: 09/25/2018 SUBJECTIVE: The patient is in bed, in no acute distress. PHYSICAL EXAMINATION: VITAL SIGNS: Temperature is 97, blood pressure is 130/80, respiratory rate is 20, and heart rate of 102. HEENT: Unremarkable. NECK: Supple. LUNGS: Decreased breath sounds. HEART: Normal S1 and S2. ABDOMEN: Soft. LABORATORY DATA: Revealed a white count of 12,000, hemoglobin was noted to be 9. Chemistries revealed a BUN of 36 and creatinine of 1.7. Blood cultures are negative. ASSESSMENT AND PLAN: This is a 63-year-old female with chronic respiratory failure, on home O2 therapy; chronic obstructive lung disease; stage IV lung cancer with metastasis to the bone, on chemo and radiation; shortness of breath, leukocytosis, tachycardia, sepsis with obstructive pneumonitis with healthcare-associated pneumonia, on intermittent vancomycin; and thus far, the blood cultures are reported to be negative and it is day #3 of vancomycin, and meropenem, will complete [address] Miranda's note is reviewed and consultation. Overall prognosis is quite poor. This patient appears to be chronically ill and cachectic. She does have an elevated procalcitonin of 0.93, and because of the bacterial pneumonia, she has an increase in creatinine of 1.3 now up to 1.7. We will discuss with the medical team. Eliezer Stuart MD
[2018-09-26] MEDS: Ipratropium 0.02% Inhal Soln (0.5 mg/2.5 ml) UD IH SCH ×4 (01:27→20:30)
[2018-09-26 07:49] LABS: BASO # 0.01 K/mm3 (0.0-2.0); BASO % 0.1 % (0.0-3.0); LYMPH # 0.7 (1.2-3.4); MEAN CELL VOLUME 92.3 fl (80.0-105.0); MEAN CORPUSCULAR HEMOGLOBIN 27.5 pg (25.0-35.0); MEAN CORPUSCULAR HGB CONC 29.8 g/dl (31.0-37.0); MEAN PLATELET VOLUME 8.9 fl (7.0-11.0); MONO # 1.2 (0.1-0.6); MONO % 6.8 % (1.0-6.0); RBC 3.64 10^6/uL (3.5-6.1); RED CELL DISTRIBUTION WIDTH 17.5 % (11.5-14.5); WHITE BLOOD COUNT 16.8 10^3/uL (4.5-11.0)
[2018-09-26] MEDS: Levalbuterol 0.63 MG/3 ML Inhal Soln UD IH SCH ×3 (08:14→20:30)
[2018-09-26 08:54] LABS: ALB/GLOB RATIO 0.8 (1.1-1.8); ALBUMIN 2.9 g/dL (3.0-4.8); ALT/SGPT < 6 U/L (7-56); AST/SGOT 38 U/L (14-36); BLOOD UREA NITROGEN 29 mg/dL (7-21); CALCIUM 9.6 mg/dL (8.4-10.5); GFR NON-AFRICAN AMERICAN 50
[2018-09-26] MEDS ORDERED: Potassium Chloride 20 mEq ER Tab PO ONE (09:21)
[2018-09-26] MEDS: Morphine 15 mg SR Tab PO SCH ×4 (10:23→22:16)
[2018-09-26] MEDS: MethylPREDNISolone 40 mg Vial IVP SCH ×2 (10:24→22:15)
[2018-09-26] MEDS: POLYETHYLENE GLYCOL 3350 17 GM/Dose PACKET PO SCH ×2 (10:25→19:12)
[2018-09-26] MEDS: Meropenem IV 1 gm in NS 1 GM/50 ML BAG IVPB SCH ×2 (10:25→22:16)
--- NOTE | 2018-09-26 12:59 | PN ---
DATE: 09/26/2018 SUBJECTIVE: The patient has no complaints of any chest pain or shortness of breath. No headaches. OBJECTIVE: VITAL SIGNS: Temperature is 97.4, pulse of 89, blood pressure 118/73, respirations 20. GENERAL: The patient is lying in bed, flat, comfortable. HEENT: No oral lesion. Anicteric sclerae. Moist mucosa. NECK: No JVD, adenopathy, or thyromegaly. CARDIOVASCULAR: S1 and S2, regular. No murmurs, rubs, or gallops. LUNGS: Clear to auscultation bilaterally. No wheeze, rales, or rhonchi. ABDOMEN: Bowel sounds are positive, soft, nontender and nondistended. EXTREMITIES: No cyanosis, clubbing or edema. LABORATORY DATA: White count is 16.8, hemoglobin is 10, creatinine is 1.1, potassium 3.4. ASSESSMENT: 1. Hospital-acquired pneumonia. 2. Chronic obstructive pulmonary disease. 3. Stage IV lung cancer. 4. Chronic kidney disease stage III with acute kidney injury. 5. Anemia. 6. Hypercalcemia, improved. 7. Pulmonary hypertension. 8. Anxiety. 9. Constipation. PLAN: The patient is currently comfortable. Her white cell count has improved. She is being followed by Infectious Disease. I did speak to them. The patient has hypokalemia. We will replace her potassium. Blood cultures have been negative. She is on heparin for DVT prophylaxis. She is on meropenem for antibiotics. She is going to continue with MiraLax for constipation. She is on morphine for pain. She is on Xanax for anxiety. She is on Solu-Medrol. She is getting IV fluids. I will discontinue her IV fluids at this point. I will replace her potassium. Alejandro Miranda MD
--- NOTE | 2018-09-26 14:20 | PN ---
DATE: 09/26/2018 SUBJECTIVE: The patient is in bed, no acute distress, nontoxic. No fevers or chills. PHYSICAL EXAMINATION: VITAL SIGNS: Temperature was 98, blood pressure was 118/70, respiratory rate of 18. HEENT: Unremarkable. NECK: Supple. LUNGS: Decreased breath sounds. HEART: Normal S1, S2. ABDOMEN: Soft. LABORATORY EXAMINATION: Revealed the patient to have a white count of 16,800. Chemistries are noted. Microbiology is reviewed. The patient's procalcitonin is 0.93. MEDICATIONS: Review of orders revealed the patient is on meropenem. ASSESSMENT AND PLAN: A 63-year-old female with chronic respiratory failure, on home oxygen therapy, chronic obstructive lung disease, stage IV lung cancer with metastasis to the bone and chemotherapy and radiation, who is admitted with sepsis with obstructive pneumonitis with healthcare associated pneumonia, on intermittent vancomycin and meropenem. Today is day #4, would complete four to seven days of antibiotics. Overall prognosis is quite poor. Eliezer Stuart MD
[2018-09-26] MEDS: Lidocaine 5% Patch TD SCH (18:24)
--- NOTE | 2018-09-26 22:45 | PN ---
DATE: 09/26/2018 REFERRING PHYSICIAN: Dr. Anne. SUBJECTIVE: She is lying in the bed. Family is at bedside, complaining about right-sided back pain. Not much cough, no sputum production, no nausea, no vomiting, no diarrhea, no leg pain or leg swelling. PHYSICAL EXAMINATION: VITAL SIGNS: Temperature 98, heart rate is 78, respiratory rate is 20, blood pressure 122/75, pulse ox 98% on room air. HEENT: Moist mucous membranes. NECK: Supple. No JVD. LUNGS: Few scattered rhonchi. CARDIOVASCULAR: S1 and S2. ABDOMEN: Soft and nontender. No organomegaly. EXTREMITIES: No edema. NEUROLOGIC: Awake, alert, follows simple commands. MEDICATIONS: She is on Atrovent inhaled every 6 hours, heparin 5000 units subcu every 12 hours, propranolol 10 mg 3 times a day, meropenem 1 g IV every 12 hours, MiraLax 17 g twice a day, morphine 1 mg IV every 12 hours p.r.n., also morphine extended release 50 mg four times a day, Pepcid 20 mg nightly, Solu-Medrol 30 mg every 12 hours, Xanax 0.25 mg twice a day. Medication review noted. LABORATORY: Hemoglobin 10.7, hematocrit 33.6, WBC 16, platelet count is 330. Sodium 134, potassium 2.4, chloride 99, bicarbonate 30, BUN 29, creatinine 1.1, glucose is 84, calcium is 9.6, phosphorus 3.7, magnesium 2, transferrin is 97, ferritin is 10,600, AST 38, ALT is less than 6, TSH 4.14. Microbiology, blood cultures been negative. IMPRESSION AND PLAN: Stage IV lung cancer progressive disease, chronic obstructive lung disease, pulmonary hypertension, history of attention deficit disorder, chronic renal insufficiency, left adrenal metastatic disease, chronic anemia, renal failure, may have pneumonia with procalcitonin positive. Pulmonary point of view, doing okay. Continue bronchodilator, antibiotics, gastric prophylaxis, DVT prophylaxis, pain management. May add Lidoderm patch and nonsteroidal. Overall poor prognosis. Continue supportive care. Thank you and we will follow with you. Nikita Hector MD [facility] # [id number]
[2018-09-27] MEDS: Morphine 2 mg/ml ISec IVP PRN ×4 (00:19→12:55)
[2018-09-27] MEDS: Ipratropium 0.02% Inhal Soln (0.5 mg/2.5 ml) UD IH SCH ×5 (01:35→19:15)
[2018-09-27 06:54] LABS: EOS % 0.1 % (1.5-5.0); HEMOGLOBIN 11.3 g/dL (12.0-16.0); LYMPH # 0.4 (1.2-3.4); LYMPH % 2.8 % (22.0-35.0); MEAN CELL VOLUME 92.6 fl (80.0-105.0); MEAN CORPUSCULAR HEMOGLOBIN 27.9 pg (25.0-35.0); MEAN CORPUSCULAR HGB CONC 30.1 g/dl (31.0-37.0); MEAN PLATELET VOLUME 8.6 fl (7.0-11.0); MONO # 0.5 (0.1-0.6); MONO % 3.8 % (1.0-6.0); RBC 4.05 10^6/uL (3.5-6.1); RED CELL DISTRIBUTION WIDTH 17.3 % (11.5-14.5); WHITE BLOOD COUNT 12.8 10^3/uL (4.5-11.0)
[2018-09-27 06:56] LABS: ALB/GLOB RATIO 0.9 (1.1-1.8); ALBUMIN 3.1 g/dL (3.0-4.8); ALT/SGPT < 6 U/L (7-56); AST/SGOT 56 U/L (14-36); BLOOD UREA NITROGEN 25 mg/dL (7-21); CALCIUM 9.9 mg/dL (8.4-10.5); GFR NON-AFRICAN AMERICAN 50
[2018-09-27] MEDS: Levalbuterol 0.63 MG/3 ML Inhal Soln UD IH SCH ×3 (07:48→19:15)
[2018-09-27] MEDS: MethylPREDNISolone 40 mg Vial IVP SCH ×2 (10:10→21:29)
[2018-09-27] MEDS: Lidocaine 5% Patch TD SCH (10:11)
[2018-09-27] MEDS: Meropenem IV 1 gm in NS 1 GM/50 ML BAG IVPB SCH ×2 (10:12→21:28)
[2018-09-27] MEDS: POLYETHYLENE GLYCOL 3350 17 GM/Dose PACKET PO SCH (10:13)
[2018-09-27] MEDS: Morphine 15 mg SR Tab PO SCH ×4 (10:16→21:28)
--- NOTE | 2018-09-27 11:31 | PN ---
DATE: 09/27/2018 SUBJECTIVE: The patient is in bed, chronically ill, debilitated, end-stage, no fevers, less short of breath. PHYSICAL EXAMINATION: VITAL SIGNS: Temperature is 97, blood pressure is 110/70, respiratory rate of 20, heart rate of 90. HEENT: Unremarkable. NECK: Supple. LUNGS: Have decreased breath sounds. HEART: Normal S1, S2. ABDOMEN: Soft. LABORATORY EXAMINATION: Reveals a white count of 12,800, hemoglobin of 11, platelets of 296. BUN of 25, creatinine of 1.1. Microbiology reveals the blood cultures are negative. Review of orders reveals the patient is on meropenem and methylprednisolone. ASSESSMENT AND PLAN: This is a 63-year-old female who was seen earlier today who has chronic respiratory failure on home O2 therapy, has chronic obstructive lung disease with stage IV lung cancer and metastases to the bone, has had chemotherapy and radiation admitted on this admission with #1 is sepsis with obstructive pneumonitis and healthcare associated pneumonia on intermittent vancomycin and meropenem, today is day #5 of antibiotics with complete 4 to 7 days of antibiotics. Overall the patient is improved. However, long-term prognosis is quite poor for this patient who is chronically ill and cachectic. Case discussed with PMD. Eliezer Stuart MD
--- NOTE | 2018-09-27 12:23 | PN ---
DATE: 09/27/2018 SUBJECTIVE: The patient has no complaints of any chest pain. No shortness of breath. No headaches. She says her breathing is about the same. PHYSICAL EXAMINATION: VITAL SIGNS: Temperature is 97.4, pulse of 90, blood pressure 110/78 and respirations 20. GENERAL: The patient is lying in bed, flat, comfortable. HEENT: No oral lesion. Anicteric sclerae. Moist mucosa. NECK: No JVD, adenopathy, or thyromegaly. CARDIOVASCULAR: S1 and S2, regular. No murmurs, rubs, or gallops. LUNGS: Clear to auscultation bilaterally. No wheeze, rales, or rhonchi. ABDOMEN: Bowel sounds are positive, soft, nontender and nondistended. EXTREMITIES: No cyanosis, clubbing or edema. LABORATORY DATA: White count is 12.8 and hemoglobin 11.3. Creatinine is 1.1. CT of the head shows no acute intracranial abnormality, no significant findings to clinical presentation. There is diffuse sclerotic and lytic abnormalities with respect to the calvarium. ASSESSMENT: 1. Hospital-acquired pneumonia. 2. Chronic obstructive pulmonary disease. 3. Stage IV lung cancer. 4. Chronic kidney disease, stage III with acute kidney injury, resolved. 5. Anemia, chronic. 6. Hypercalcemia, improved. 7. Pulmonary hypertension. 8. Anxiety. 9. Constipation. 10. Gait dysfunction. 11. Mild malnutrition. PLAN: The patient has metastatic lung CA, it may be involving the bones of the skull by CAT scan that was seen. The patient is on heparin for DVT prophylaxis. She is receiving meropenem for antibiotics. She is on MiraLax for constipation. The patient is on Solu-Medrol daily. She is on Xopenex for her breathing. She is on renal diet. I will change the renal diet to a regular diet so she will have better nutrition. She is malnourished. The patient has mild . She has a albumin that is 2.9. She has a weight of 88 pounds. The patient's friend is at the bedside and is asking for MRI, I advised her that MRI is not needed at this time as the patient already has metastatic lung CA. This will not change the prognosis of plan of care nor will it change the prognosis. No further intervention is needed . Alejandro Miranda MD
--- NOTE | 2018-09-27 19:13 | PN ---
DATE: 09/27/2018 PULMONARY PROGRESS NOTE REFERRING PHYSICIAN: Leopoldo López MD SUBJECTIVE: She is lying in the recliner. She feels better. She had a bowel movement yesterday. Still having back and rib pain, requiring IV morphine. Requesting Duragesic patch for pain control. Getting ready to go home. No nausea, no vomiting, no leg pain or leg swelling. PHYSICAL EXAMINATION: VITAL SIGNS: Temperature 98, heart rate is 92, respiratory rate is 20, blood pressure 112/78, pulse ox 98% on 3 L nasal cannula. HEENT: Moist mucous membranes. . NECK: Supple. No JVD. LUNGS: Few scattered rhonchi. CARDIOVASCULAR: S1 and S2. ABDOMEN: Soft and nontender. No organomegaly. EXTREMITIES: No edema. NEUROLOGIC: Awake, alert, follows simple commands. MEDICATIONS: She is on Atrovent 0.5 mg inhaled every 6 hours, Duragesic patch been started by me 25 mcg daily, heparin 5000 units subcu every 12 hours, propranolol 10 mg 3 times a day, lidocaine once a day patch, meropenem 1 g IV every 12 hours, MiraLax 17 g twice a day, morphine 1 mg every 12 hours p.r.n., morphine extended release 15 mg twice a day, Pepcid 20 mg daily, Solu-Medrol 30 mg every 12 hours, Xanax 0.25 mg twice a day. LABORATORY DATA: Shows hemoglobin 11.3, hematocrit 37.5, WBC 12.8, platelet count is 296. Sodium 136, potassium 4.3, chloride 98, bicarbonate 35, BUN 25, creatinine 1.1, glucose 183, calcium 9.9, phosphorus 3.3, magnesium 2.2, AST 56, ALT is less than 6, albumin is 3.1. Microbiology, blood cultures have been negative. IMPRESSION AND PLAN: Stage IV lung cancer progressive disease, chronic obstructive lung disease, pulmonary hypertension, history of attention deficit disorder, chronic renal insufficiency, left adrenal metastasis, chronic anemia, renal failure, pneumonia, hypercalcitoninemia. She has a chronic pain syndrome with metastatic disease to the bone. Spoke to nursing staff and also to the patient. Duragesic patch 25 mcg is added in the hope to discontinue p.r.n. morphine. Overall poor prognosis. Gastric prophylaxis, deep venous thrombosis prophylaxis. Continue stool softener. Thank you and we will follow with you. Nikita Hector MD
[2018-09-28] MEDS: Ipratropium 0.02% Inhal Soln (0.5 mg/2.5 ml) UD IH SCH ×4 (02:31→19:40)
[2018-09-28] MEDS: Morphine 2 mg/ml ISec IVP PRN ×5 (03:16→22:25)
[2018-09-28 06:08] LABS: EOS % 0.1 % (1.5-5.0); HEMOGLOBIN 10.2 g/dL (12.0-16.0); LYMPH # 0.5 (1.2-3.4); MEAN CELL VOLUME 91.9 fl (80.0-105.0); MEAN CORPUSCULAR HEMOGLOBIN 27.5 pg (25.0-35.0); MEAN CORPUSCULAR HGB CONC 29.9 g/dl (31.0-37.0); MEAN PLATELET VOLUME 8.7 fl (7.0-11.0); MONO # 0.7 (0.1-0.6); MONO % 5.5 % (1.0-6.0); PLATELET COUNT 259 10^3/uL (120.0-450.0); RBC 3.71 10^6/uL (3.5-6.1); RED CELL DISTRIBUTION WIDTH 17.4 % (11.5-14.5); WHITE BLOOD COUNT 13.1 10^3/uL (4.5-11.0)
[2018-09-28 06:51] LABS: ALB/GLOB RATIO 0.9 (1.1-1.8); ALBUMIN 2.9 g/dL (3.0-4.8); ALT/SGPT 12 U/L (7-56); AST/SGOT 38 U/L (14-36); BLOOD UREA NITROGEN 25 mg/dL (7-21); CALCIUM 9.8 mg/dL (8.4-10.5); GFR NON-AFRICAN AMERICAN > 60
--- NOTE | 2018-09-28 06:56 | CP.PCM.PN ---
Subjective - Date & Time of Evaluation Date of Evaluation: 09/28/18 Time of Evaluation: 06:25 - Subjective Subjective: Awake, no distress Reason for consultation: Cardiac evaluation of tachycardia, admitted for dehaydration, History of metastatic lung cancer, COPD, renal insufficiency, fall. Cardiac consult was called to evaluate tachycardia. Seen and examined by me and Dr. Mathews Objective - Vital Signs/Intake and Output Vital Signs (last 24 hours): Temp Pulse Resp BP Pulse Ox 98 F 98 H 18 106/71 98 09/27/18 18:09 09/27/18 18:09 09/27/18 18:09 09/27/18 18:09 09/27/18 18:09 Intake and Output: 09/27/18 09/28/18 18:59 06:59 Intake Total 700 0 Output Total 500 200 Balance 200 -200 - Medications Medications: Current Medications Alprazolam (Xanax) 0.25 mg PO BID LUZ MARINA; Protocol Stop: 09/30/18 22:16 Last Admin: 09/27/18 18:01 Dose: 0.25 mg Famotidine (Pepcid) 20 mg PO HS [facility] MARINA Last Admin: 09/27/18 21:29 Dose: 20 mg Fentanyl (Duragesic) 1 patch TD Q72H [facility] MARINA Last Admin: 09/27/18 12:55 Dose: 1 patch Heparin Sodium (Porcine) (Heparin) 5,000 units SC Q12 LUZ MARINA; Protocol Last Admin: 09/27/18 21:29 Dose: 5,000 units Meropenem (Merrem Iv 1 Gm Premix) 1 gm in 50 mls @ 100 mls/hr IVPB Q12 LU[facility] MARINA; Protocol Stop: 09/30/18 22:01 Last Admin: 09/27/18 21:28 Dose: 100 mls/hr Ipratropium Stuart (Atrovent) 0.5 mg IH [id number] [facility]INA Last Admin: 09/28/18 02:31 Dose: Not Given Levalbuterol HCl (Xopenex) 0.63 mg IH TIDRESP [facility] Last Admin: 09/27/18 19:15 Dose: 0.63 mg Lidocaine (Lidoderm) 1 ea TD DAILY [facility] Last Admin: 09/27/18 10:11 Dose: 1 ea Methylprednisolone (Solu-Medrol) 30 mg IVP Q12 [facility]INA Last Admin: 09/27/18 21:29 Dose: 30 mg Morphine Sulfate (Morphine) 1 mg IVP Q2 PRN PRN Reason: Pain, moderate (4-7) Last Admin: 09/28/18 06:32 Dose: 1 mg Morphine Sulfate (Morphine Extended Release Tab) 15 mg PO QID [facility] Last Admin: 09/27/18 21:28 Dose: 15 mg Polyethylene Glycol (Miralax) 17 gm PO BID [facility] Last Admin: 09/27/18 10:13 Dose: Not Given Propranolol HCl (Inderal) 10 mg PO TID [facility] Last Admin: 09/27/18 18:01 Dose: 10 mg - Labs Labs: 09/28/18 05:49 09/28/18 05:49 - Constitutional Appears: Non-toxic, No Acute Distress - Head Exam Head Exam: NORMAL INSPECTION, NORMOCEPHALIC - Eye Exam Eye Exam: Normal appearance Pupil Exam: NORMAL ACCOMODATION - ENT Exam ENT Exam: Mucous Membranes Moist, Normal Exam - Respiratory Exam Respiratory Exam: Decreased Breath Sounds, NORMAL BREATHING PATTERN - Cardiovascular Exam Cardiovascular Exam: +S1, +S2 Additional comments: right chest port - GI/Abdominal Exam GI & Abdominal Exam: Soft, Normal Bowel Sounds - Extremities Exam Extremities Exam: Full ROM, Normal Capillary Refill - Neurological Exam Neurological Exam: Alert, Awake, Oriented x3 - Psychiatric Exam Psychiatric exam: Normal Affect, Normal Mood - Skin Skin Exam: Dry, Normal Color, Warm Assessment and Plan - Assessment and Plan (Free Text) Assessment: A 63 year old female who came in to the ER back pain due to fall. Admitted for dehydration.She has not been eating or drinking for the past 5 days prior to admission. History of metastatic squamous cell Stage 4 lung cancer, on c hemotherapy, recently received radiation therapy on left lung, COPD,on home oxygen, former heavy smoker, pulmonary hypertension, history of tachycardia on beta blockers, chronic renal insufficiency, post fall. Cardiac consult was called to evaluate tachycardia. MUGA scan done on 02/18/18 showed LVEF of 35% moderate LV dysfunction and diffuse hypokinesis. Echo done on 07/29/18 and showed LVEF of 55%,moderately dilated RV, mild AR/MR, moderate TR, RVSP 57mmHg. Dehydration, on IV hydration, Tachycardia started on Metoprolol but due to low blood pressure changed to Propanolol. continue IV antibiotics per ID (pneumonia). Pulmonary and Oncology on consult. Discharge planning. Plan: No distress,denies shortness of breath Heart rate controlled, on Propanolol Continue IV antibiotics per ID Solumedrol 30 mg BID, Inderal 10 mg TID Continue current treatment Continue current medications No further cardiac work up as this point Pain management Discharge planning Will follow up Plan and treatment discussed with Dr. Mathews
[2018-09-28] MEDS: Levalbuterol 0.63 MG/3 ML Inhal Soln UD IH SCH ×3 (07:39→19:41)
[2018-09-28 09:17] LABS: ANISOCYTOSIS 1+; BAND 2 % (0-2); HYPOCHROMIA 1+; LYMPHOCYTE 6 % (22.0-35.0); MONOCYTE 4 % (1.0-6.0); NEUTROPHIL 88 % (50.0-70.0); OVALOCYTES SLIGHT; PLATELET ESTIMATE NORMAL (NORMAL); TEAR DROP CELLS SLIGHT; TOXIC GRANULATION SLIGHT
[2018-09-28] MEDS: Meropenem IV 1 gm in NS 1 GM/50 ML BAG IVPB SCH ×2 (09:27→23:14)
[2018-09-28] MEDS: POLYETHYLENE GLYCOL 3350 17 GM/Dose PACKET PO SCH ×3 (09:27→19:53)
[2018-09-28] MEDS: MethylPREDNISolone 40 mg Vial IVP SCH ×2 (09:27→23:13)
[2018-09-28] MEDS: Morphine 15 mg SR Tab PO SCH ×4 (09:28→19:52)
[2018-09-28] MEDS: Lidocaine 5% Patch TD SCH (09:28)
[2018-09-28] MEDS ORDERED: Zoledronic Acid 4 MG in Sodium Chloride 0.9% 100 ML IV ONE (09:29)
--- NOTE | 2018-09-28 18:45 | PN ---
DATE: 09/28/2018 SUBJECTIVE: The patient has no complaints of any chest pain or shortness of breath. No headache. PHYSICAL EXAMINATION VITAL SIGNS: Temperature 97.8, pulse of 99, blood pressure 127/93, respirations 18. GENERAL: The patient is lying in bed, flat, comfortable. HEENT: No oral lesion. Anicteric sclerae. Moist mucosa. NECK: No JVD, adenopathy, or thyromegaly. CARDIOVASCULAR: S1 and S2, regular. No murmurs, rubs, or gallops. LUNGS: Clear to auscultation bilaterally. No wheeze, rales, or rhonchi. ABDOMEN: Bowel sounds are positive, soft, nontender and nondistended. EXTREMITIES: No cyanosis, clubbing or edema. LABORATORY DATA: White count 13 and hemoglobin 10.2. Creatinine 0.9. ASSESSMENT: 1. Hospital acquired pneumonia. 2. Chronic obstructive pulmonary disease. 3. Stage IV lung cancer. 4. Chronic kidney disease stage III with acute kidney injury, resolved. 5. Anemia, chronic. 6. Hypercalcemia, improved. 7. Pulmonary hypertension. 8. Anxiety. 9. Constipation. 10. Gait dysfunction. 11. Malnutrition. PLAN: The patient is feeling better. Her white count has decreased to 13.1. She is on a Fentanyl patch. The patient is on Heparin for DVT prophylaxis. She is on meropenem for antibiotics. She is on Solu-Medrol for breathing. She is on oxygen. She had a regular diet. Her creatinine is back to baseline. Her saturation is 33% on air. Her ferritin is 10,600. Alejandro Miranda MD
--- NOTE | 2018-09-28 22:58 | PN ---
DATE: 09/28/2018 PULMONARY PROGRESS NOTE REFERRING PHYSICIAN: Leopoldo López MD SUBJECTIVE: She is lying in the bed. Sleepy, comfortable. Spoke to nursing staff. Had lot of pain this morning. Finally, Ativan was given to her. No hemoptysis. No emesis. No hematuria. No diarrhea. OBJECTIVE: GENERAL: No acute distress. VITAL SIGNS: Temperature 98, heart rate is 86, respiratory rate 18, blood pressure is 110/82, pulse ox 94%on nasal cannula. HEENT: Moist mucous membrane. Crowded airway. NECK: Supple. No JVD. LUNGS: Fair airflow with scattered rhonchi. HEART: S1 and S2. ABDOMEN: Soft and nontender. No organomegaly. EXTREMITIES: No edema. NEUROLOGICAL: Sleepy, arousable. MEDICATIONS: She is on Ativan 1 mg every 6 hours, Atrovent 0.5 mg every 6 hours, Dilaudid 2 mg every 3 hours p.r.n., Duragesic patch also 25 mcg daily, heparin subcu twice a day, Inderal 10 mg daily, lidocaine patch to affected area, meropenem 1 g IV every 12 hours, MiraLax 17 g twice a day, morphine extended release 15 mg four times a day, Pepcid 20 mg at bedtime, Solu-Medrol 30 mg every 12 hours, Tylenol p.r.n., Xanax 0.25 mg twice a day, Xopenex inhaled three times a day. LABORATORY DATA: Shows hemoglobin 10.2, hematocrit 34.1, WBC of 13.1, platelet count is 259. Sodium 136, potassium 4.1, chloride 93, bicarbonate is 38, BUN 25, creatinine 0.9, glucose 116, calcium is 9.8, phosphorus 2.7, magnesium 1.8. AST 38, ALT 12, alk phos is 79. Microbiology: Blood culture, there is no growth. IMPRESSION AND PLAN: Stage IV lung cancer which is progressive disease, obstructive lung disease, pulmonary hypertension, history of attention deficit disorder, chronic renal insufficiency, left adrenal mass, chronic anemia, renal failure, pneumonia. Has an increased calcitonin. Pulmonary point of view, overall poor prognosis. Keep comfortable. May increase opiates with benzodiazepine to make her comfortable. Gastric prophylaxis. Deep venous thrombosis prophylaxis. Bronchodilator. Aspiration precaution. Continue supportive care. Thank you and we will follow with you. Nikita Hector MD [facility] # [id number]
--- NOTE | 2018-09-29 01:07 | PCM.FALL ---
<Federico Nichols - Last Filed: 09/29/18 01:10> Post Fall Progress Note - Post Fall Fall Date: 09/29/18 Fall Time: 21:45 - Post Fall Exam Vital Sign: Temp Pulse Resp BP Pulse Ox 97.6 F 98 H 16 163/86 H 94 L 09/28/18 22:00 09/28/18 22:00 09/28/18 22:00 09/28/18 22:00 09/28/18 16:54 Skull Exam: Negative for: Scalp wound, Scalp hematoma, Scalp depression Eye Exam: Positive for: Pupils equal, Pupils reactive Ear Exam: Negative for: Discharge, Bleeding Nose Exam: Negative for: Discharge, Bleeding Skin Exam: Negative for: Colour, Lacerations, Grazes, Bruising Mouth Exam: Negative for: Tongue bitten, Teeth dislodge Neck Exam: Negative for: Tenderness, Tingling, Weakness Spinal Exam: Positive for: Tenderness (chronic ). Negative for: Tingling Abdomen Exam: Negative for: Tenderness Pelvic Exam: Negative for: Tenderness, Hematuria Arm Exam: Negative for: Deformity, Alteration in range of movement Leg Exam: Negative for: Deformity, Alteration in range of movement Other pertinent findings: cachectic chronic generalized tenderness 2/2 mets no fractures noted, no deformities no bruising or discoloration noted, no active bleeding, no abrasions/lacerations/ulcerations Impression/Plan: Brief house resident note: Code STAR called @ 21:45 for witnessed fall by nursing staff. Patient was attempting to get up out of bed to call out for nurse, states she felt dizzy as she turned, and fell, falling against the bedside commode on her back and hitting the back of her head. No LOC, headaches, changes in vision, acute dizziness. Patient was alert and oriented x 3 on exam, no active bleeding noted, no contusions, abrasions/lacerations, skeletal deformities. Patient has chronic weakness, back tenderness on PE. Saturating well on 3L NC. Vitals on initial assessment: BP 125/78 HR 116 O2 sat: 96% on NC Vitals at end of assessment: BP 104/74 -HR 89 O2 sat on 3L NC: 100% -CXR stat to r/o fracture: no acute findings, f/u official read -CT head without contast ordered to r/o hemorrhage: no acute findings, f/u official read -patient received 1 mg IVP morphine as scheduled -patient re-evaluated, resting comfortably and in no acute distress <Nina Yeboah - Last Filed: 09/29/18 19:41> Post Fall Progress Note - Post Fall Exam Vital Sign: Temp Pulse Resp BP Pulse Ox 98 F 101 H 20 92/62 L 100 09/29/18 16:52 09/29/18 16:52 09/29/18 16:52 09/29/18 17:05 09/29/18 16:52 Attending/Attestation - Attestation I have personally seen and examined this patient.: No I have fully participated in the care of the patient.: No I have reviewed all pertinent clinical information, including history, physical exam and plan: No
[2018-09-29] MEDS: Meropenem IV 1 gm in NS 1 GM/50 ML BAG IVPB SCH ×3 (01:22→21:49)
[2018-09-29] MEDS: Ipratropium 0.02% Inhal Soln (0.5 mg/2.5 ml) UD IH SCH ×4 (03:06→19:21)
[2018-09-29] MEDS: Morphine 2 mg/ml ISec IVP PRN ×2 (03:07→07:54)
[2018-09-29] MEDS: Morphine 15 mg SR Tab PO SCH (03:11)
--- NOTE | 2018-09-29 06:52 | CP.PCM.PN ---
Subjective - Date & Time of Evaluation Date of Evaluation: 09/29/18 Time of Evaluation: 06:15 - Subjective Subjective: Awake, no distress, lying in bed Reason for consultation: Cardiac evaluation of tachycardia, admitted for dehaydration, History of metastatic lung cancer, COPD, renal insufficiency, fall. Seen and examined by me and Dr. Mathews Objective - Vital Signs/Intake and Output Vital Signs (last 24 hours): Temp Pulse Resp BP Pulse Ox 99.3 F 97 H 20 113/78 100 09/29/18 06:00 09/29/18 06:00 09/29/18 06:00 09/29/18 06:00 09/29/18 06:00 Intake and Output: 09/28/18 09/29/18 18:59 06:59 Intake Total 400 Output Total 300 Balance 100 - Medications Medications: Current Medications Acetaminophen (Tylenol 325mg Tab) 650 mg PO Q6H PRN PRN Reason: Pain, Mild (1-3) Last Admin: 09/28/18 12:30 Dose: 650 mg Alprazolam (Xanax) 0.25 mg PO BID [facility]INA; Protocol Stop: 09/30/18 22:16 Last Admin: 09/28/18 19:53 Dose: 0.25 mg Famotidine (Pepcid) 20 mg PO HS [facility] Last Admin: 09/28/18 23:14 Dose: 20 mg Fentanyl (Duragesic) 1 patch TD Q72H [facility] Last Admin: 09/27/18 12:55 Dose: 1 patch Heparin Sodium (Porcine) (Heparin) 5,000 units SC Q12 [facility]; Protocol Last Admin: 09/28/18 23:12 Dose: 5,000 units Hydromorphone HCl (Dilaudid) 2 mg PO Q3H PRN PRN Reason: Pain, moderate (4-7) Last Admin: 09/28/18 10:47 Dose: 2 mg Meropenem (Merrem Iv 1 Gm Premix) 1 gm in 50 mls @ 100 mls/hr IVPB Q12 [facility]; Protocol Last Admin: 09/29/18 01:22 Dose: Not Given Ipratropium Lester (Atrovent) 0.5 mg IH [id number] [facility] Last Admin: 09/29/18 03:06 Dose: 0.5 mg Levalbuterol HCl (Xopenex) 0.63 mg IH TIDRESP [facility] Last Admin: 09/28/18 19:41 Dose: 0.63 mg Lidocaine (Lidoderm) 1 ea TD DAILY [facility] BEDS AT [facility] Last Admin: 09/28/18 09:28 Dose: 1 ea Lorazepam (Ativan) 1 mg PO Q6 [facility]S [facility]CLUDE 234 BEDS AT THE [facility]; Protocol Last Admin: 09/29/18 00:49 Dose: 1 mg Methylprednisolone (Solu-Medrol) 30 mg IVP Q12 [facility] 234 BEDS AT THE [facility] Last Admin: 09/28/18 23:13 Dose: 30 mg Morphine Sulfate (Morphine Extended Release Tab) 15 mg PO QID [facility]S [facility] 234 BEDS AT THE [facility] Last Admin: 09/29/18 03:11 Dose: Not Given Morphine Sulfate (Morphine) 1 mg IVP Q2 PRN PRN Reason: Pain, severe (8-10) Last Admin: 09/29/18 03:07 Dose: 1 mg Polyethylene Glycol (Miralax) 17 gm PO BID [facility] 234 BEDS AT [facility] Last Admin: 09/28/18 19:53 Dose: 17 gm Propranolol HCl (Inderal) 10 mg PO TID [facility]S [facility] 234 BEDS AT [facility] Last Admin: 09/28/18 19:52 Dose: 10 mg - Labs Labs: 09/28/18 05:49 09/28/18 05:49 - Constitutional Appears: Non-toxic, No Acute Distress - Head Exam Head Exam: NORMAL INSPECTION, NORMOCEPHALIC - Eye Exam Eye Exam: Normal appearance Pupil Exam: NORMAL ACCOMODATION - ENT Exam ENT Exam: Mucous Membranes Moist - Neck Exam Neck Exam: Full ROM, Normal Inspection - Respiratory Exam Respiratory Exam: Decreased Breath Sounds, Clear to Ausculation Bilateral, NORMAL BREATHING PATTERN - Cardiovascular Exam Cardiovascular Exam: +S1, +S2 Additional comments: right chest port - GI/Abdominal Exam GI & Abdominal Exam: Soft, Normal Bowel Sounds - Extremities Exam Extremities Exam: Full ROM, Normal Capillary Refill - Neurological Exam Neurological Exam: Alert, Awake, Oriented x3 - Psychiatric Exam Psychiatric exam: Normal Affect, Normal Mood - Skin Skin Exam: Dry, Normal Color, Warm Assessment and Plan - Assessment and Plan (Free Text) Assessment: A 63 year old female who came in to the ER back pain due to fall. Admitted for dehydration.She has not been eating or drinking for the past 5 days prior to admission. 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 Cardiac consult was c alled to evaluate tachycardia. MUGA scan done on 02/18/18 showed LVEF of 35% moderate LV dysfunction and diffuse hypokinesis. Echo done on 07/29/18 and showed LVEF of 55%,moderately dilated RV, mild AR/MR, moderate TR, RVSP 57mmHg. Dehydration, on IV hydration, On Propanolol for tachycardia,controlled. Continue IV antibiotics per ID (pneumonia). Pulmonary and Oncology on consult. Had episode of fall last night. CT of head done-no bleeding. Fall precaution. Physical therapy. Plan: Had a fall last night CT of head no bleeding Fall precuation No distress,denies shortness of breath Heart rate controlled, on Propanolol Continue IV antibiotics per ID Solumedrol 30 mg BID, Propanolol 10 mg TID Continue current treatment Continue current medications No further cardiac work up as this point Pain management Physical therapy Discharge planning Will follow up Plan and treatment discussed with Dr. Mathews
[2018-09-29] MEDS: Levalbuterol 0.63 MG/3 ML Inhal Soln UD IH SCH ×3 (07:54→19:21)
--- NOTE | 2018-09-29 08:10 | CT ---
Date of service: 09/28/2018 PROCEDURE: CT HEAD WITHOUT CONTRAST. HISTORY: s/p fall COMPARISON: 09/23/2018 TECHNIQUE: Axial computed tomography images were obtained through the head/brain without intravenous contrast. Radiation dose: Total exam DLP = 1546.12 mGy-cm. This CT exam was performed using one or more of the following dose reduction techniques: Automated exposure control, adjustment of the mA and/or kV according to patient size, and/or use of iterative reconstruction technique. FINDINGS: HEMORRHAGE: No intracranial hemorrhage. BRAIN: No mass effect or edema. No atrophy or chronic microvascular ischemic changes. VENTRICLES: Unremarkable. No hydrocephalus. CALVARIUM: Unremarkable. PARANASAL SINUSES: Unremarkable as visualized. No significant inflammatory changes. MASTOID AIR CELLS: Unremarkable as visualized. No inflammatory changes. OTHER FINDINGS: The report concurs with the preliminary [facility] report IMPRESSION: No acute intracranial findings
--- NOTE | 2018-09-29 08:45 | RAD ---
Date of service: 09/28/2018 HISTORY: s/p fall COMPARISON: 08/31/2018. FINDINGS: Right-sided MediPort terminates at the cavoatrial junction. LUNGS: There is pulmonary hyperinflation. There is moderate pulmonary venous congestion. There are chronic changes in both lungs. There is persistent confluent airspace disease in the left lower lobe. PLEURA: No change in moderate left pleural effusion. No right pleural effusion. No pneumothorax. CARDIOVASCULAR: The heart is normal in size. No aortic atherosclerotic calcifications present. OSSEOUS STRUCTURES: Within normal limits for the patient's age. VISUALIZED UPPER ABDOMEN: Normal. OTHER FINDINGS: None. IMPRESSION: Persistent airspace disease in the left lower lobe and moderate left pleural effusion. No acute findings.
[2018-09-29] MEDS: POLYETHYLENE GLYCOL 3350 17 GM/Dose PACKET PO SCH ×3 (09:24→17:11)
[2018-09-29] MEDS: MethylPREDNISolone 40 mg Vial IVP SCH ×2 (09:33→21:55)
[2018-09-29] MEDS: Lidocaine 5% Patch TD SCH ×2 (09:34→09:35)
[2018-09-29 09:56] LABS: EOS % 0.2 % (1.5-5.0); HEMOGLOBIN 10.6 g/dL (12.0-16.0); LYMPH # 0.6 (1.2-3.4); LYMPH % 3.9 % (22.0-35.0); MEAN CELL VOLUME 91.8 fl (80.0-105.0); MEAN CORPUSCULAR HEMOGLOBIN 27.9 pg (25.0-35.0); MEAN CORPUSCULAR HGB CONC 30.4 g/dl (31.0-37.0); MEAN PLATELET VOLUME 8.6 fl (7.0-11.0); MONO # 0.9 (0.1-0.6); MONO % 5.3 % (1.0-6.0); RBC 3.8 10^6/uL (3.5-6.1); RED CELL DISTRIBUTION WIDTH 17.2 % (11.5-14.5); WHITE BLOOD COUNT 16.2 10^3/uL (4.5-11.0)
[2018-09-29 10:09] LABS: ALB/GLOB RATIO 0.9 (1.1-1.8); ALBUMIN 3.1 g/dL (3.0-4.8); ALT/SGPT 19 U/L (7-56); AST/SGOT 39 U/L (14-36); BLOOD UREA NITROGEN 21 mg/dL (7-21); CALCIUM 9.2 mg/dL (8.4-10.5); GFR NON-AFRICAN AMERICAN > 60
[2018-09-29] MEDS: MORPHINE PCA 1 MG/ML IV PRN (10:44)
--- NOTE | 2018-09-29 11:33 | CP.PCM.PN ---
<Fabby Childers - Last Filed: 09/29/18 11:25> Subjective - Date & Time of Evaluation Date of Evaluation: 09/29/18 Time of Evaluation: 08:00 - Subjective Subjective: Progress Note for Dr. Miranda Patient was seen and examined at bedside. Patient is resting comfortably. As per nursing staff, patient had a fall while trying to use the commode and fell and hit the back of her head. Code star was announced and fu imaging was negative. Patient denied fever, chills, shortness of breath, chest pains, abdominal pains, nausea, vomiting, diarrhea, constipation, dysuria. Objective - Vital Signs/Intake and Output Vital Signs (last 24 hours): Temp Pulse Resp BP Pulse Ox 99.3 F 97 H 20 113/78 100 09/29/18 08:19 09/29/18 08:19 09/29/18 08:19 09/29/18 08:19 09/29/18 08:19 Intake and Output: 09/29/18 09/29/18 06:59 18:59 Intake Total 400 Output Total 300 Balance 100 - Medications Medications: Current Medications Acetaminophen (Tylenol 325mg Tab) 650 mg PO Q6H PRN PRN Reason: Pain, Mild (1-3) Last Admin: 09/28/18 12:30 Dose: 650 mg Alprazolam (Xanax) 0.25 mg PO BID [facility]; Protocol Stop: 09/30/18 22:16 Last Admin: 09/29/18 09:33 Dose: 0.25 mg Famotidine (Pepcid) 20 mg PO HS [facility] Last Admin: 09/28/18 23:14 Dose: 20 mg Heparin Sodium (Porcine) (Heparin) 5,000 units SC Q12 [facility]; Protocol Last Admin: 09/29/18 09:33 Dose: 5,000 units Meropenem (Merrem Iv 1 Gm Premix) 1 gm in 50 mls @ 100 mls/hr IVPB Q12 [facility]; Protocol Last Admin: 09/29/18 09:34 Dose: 100 mls/hr Morphine Sulfate (Morphine Gutter Hanger 1 Mg/Ml) 30 mls @ 0 mls/hr IV PRN PRN; Protocol 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 MD ORDER Last Admin: 09/29/18 10:44 Dose: 0.5 mg/hr, 0.5 mls/hr Ipratropium [place] (Atrovent) 0.5 mg IH [id number] [facility] Last Admin: 09/29/18 07:54 Dose: 0.5 mg Levalbuterol HCl (Xopenex) 0.63 mg IH TIDRESP [facility] Last Admin: 09/29/18 07:54 Dose: 0.63 mg Lidocaine (Lidoderm) 1 ea TD DAILY [facility] Last Admin: 09/29/18 09:34 Dose: 1 ea Methylprednisolone (Solu-Medrol) 30 mg IVP Q12 [facility] Last Admin: 09/29/18 09:33 Dose: 30 mg Polyethylene Glycol (Miralax) 17 gm PO BID [facility] Last Admin: 09/29/18 09:24 Dose: Not Given Propranolol HCl (Inderal) 10 mg PO TID [facility] Last Admin: 09/29/18 09:33 Dose: 10 mg - Labs Labs: 09/29/18 09:44 09/29/18 09:44 - Constitutional Appears: No Acute Distress - Head Exam Head Exam: NORMOCEPHALIC Additional comments: posterior head ttp - Eye Exam Eye Exam: EOMI, Normal appearance, PERRL - ENT Exam ENT Exam: Mucous Membranes Dry - Neck Exam Neck Exam: Full ROM, Normal Inspection. absent: Lymphadenopathy - Respiratory Exam Respiratory Exam: Decreased Breath Sounds, NORMAL BREATHING PATTERN - Cardiovascular Exam Cardiovascular Exam: REGULAR RHYTHM, +S1, +S2. absent: Murmur - GI/Abdominal Exam GI & Abdominal Exam: Soft, Normal Bowel Sounds. absent: Tenderness - Neurological Exam Neurological Exam: Alert, Awake, CN II-XII Intact, Oriented x3 - Psychiatric Exam Psychiatric exam: Normal Affect, Normal Mood - Skin Skin Exam: Dry, Intact, Normal Color, Warm Assessment and Plan - Assessment and Plan (Free Text) Assessment: 1. Sepsis with hcap 2. stage 4 lung ca on opdivo 3. End -stage COPD 4. FAMILIA in setting of CKD 3 -resovled 3. Anemia 4. Hypercalcemia 5. Pulmonary HTN 6. ADHD 7. Anxiety 8. Constipation plan: Patient is sitting comfortably. CTH, CXR negative for acute pathology s/p fall. She is on abx for her HCAP, merrem as per ID. Patient had her last Opdivo 2 weeks ago, Dr. Wood following. CTH : No acute abnormalities. Diffuse sclerotic and lytic abnormalities in calvarium. X rays of hip/pelvis/lumbar spine: No acute fractures or dislocations. Severe fecal impaction in the colon. Chest CT: Progressive tumor burden in the thorax, primarily mediastinal and hilar adenopathy, sclerotic and lytic lesions in ribs and vertebral bodies. New pulmonary nodules /metastasis in right lung Echo done on 07/29/18 and showed LVEF of 55%,moderately dilated RV, mild AR/MR, moderate TR, RVSP 57mmHg. CKD 3 stable. Hypercalcemia addressed with zoldrionic acid. Patient is on propranolol 10 TID which should also address her sinus tachycardia, stable HR now. Will continue spiriva, tapering solumedrol, ipatropium and xopenex for COPD. Patient is on xanax for anxiety. Patient is on lactulose and miralax for constipation. Patient has poor nutritional status. Renal diet. DVT ppx with heparin, and pain control regimen with morphine. Patient's family to visit and consider hopsice. Seen reviewed and discussed with Dr. Miranda <Alejandro Miranda S - Last Filed: 09/29/18 14:29> Objective - Vital Signs/Intake and Output Vital Signs (last 24 hours): Temp Pulse Resp BP Pulse Ox 99.3 F 97 H 20 113/78 100 09/29/18 08:19 09/29/18 08:19 09/29/18 08:19 09/29/18 08:19 09/29/18 08:19 Intake and Output: 09/29/18 09/29/18 06:59 18:59 Intake Total 400 Output Total 300 Balance 100 - Medications Medications: Current Medications Acetaminophen (Tylenol 325mg Tab) 650 mg PO Q6H PRN PRN Reason: Pain, Mild (1-3) Last Admin: 09/28/18 12:30 Dose: 650 mg Alprazolam (Xanax) 0.25 mg PO BID [facility]; Protocol Stop: 09/30/18 22:16 Last Admin: 09/29/18 09:33 Dose: 0.25 mg Famotidine (Pepcid) 20 mg PO HS [facility] Last Admin: 09/28/18 23:14 Dose: 20 mg Heparin Sodium (Porcine) (Heparin) 5,000 units SC Q12 [facility]; Protocol Last Admin: 04/16/19 09:33 Dose: 5,000 units Meropenem (Merrem Iv 1 Gm Premix) 1 gm in 50 mls @ 100 mls/hr IVPB Q12 [facility]; Protocol Last Admin: 09/29/18 09:34 Dose: 100 mls/hr Morphine Sulfate (Morphine Gutter Hanger 1 Mg/Ml) 30 mls @ 0 mls/hr IV PRN PRN; Protocol 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 MD ORDER Last Admin: 09/29/18 10:44 Dose: 0.5 mg/hr, 0.5 mls/hr Ipratropium [place] (Atrovent) 0.5 mg IH [id number] [facility] Last Admin: 09/29/18 13:51 Dose: 0.5 mg Levalbuterol HCl (Xopenex) 0.63 mg IH TIDRESP [facility] Last Admin: 09/29/18 13:51 Dose: 0.63 mg Lidocaine (Lidoderm) 1 ea TD DAILY [facility] Last Admin: 09/29/18 09:34 Dose: 1 ea Methylprednisolone (Solu-Medrol) 20 mg IVP Q12 [facility] Polyethylene Glycol (Miralax) 17 gm PO BID [facility] Last Admin: 09/29/18 09:24 Dose: Not Given Propranolol HCl (Inderal) 10 mg PO TID [facility] Last Admin: 09/29/18 09:33 Dose: 10 mg - Labs Labs: 09/29/18 09:44 09/29/18 09:44 Assessment and Plan - Assessment and Plan (Free Text) Assessment: Patient was seen and examined by me. I have reviewed the note of the medical dir and have gone over the plan of care. I agree with the note. I have rev iewed the medications and the last labs.
--- NOTE | 2018-09-29 16:30 | PN ---
DATE: 09/29/2018 HISTORY OF PRESENT ILLNESS: The patient was seen and examined. I do agree with the note of the medical review specialist. I was involved in the plan of care. The patient is being followed by me for acute kidney injury that has improved. She has sepsis secondary to hospital-acquired pneumonia. She has chest x-ray done that shows disease in the left lower lobe and moderate left pleural effusion. The patient has that has CKD stage III. She is on propranolol this will continued. She is on Solu-Medrol and Xopenex. The patient is on heparin for DVT prophylaxis. She is on lactulose and MiraLax for her constipation and severe fecal impaction. We will need to continue her lactulose and MiraLax. She had a fall yesterday, I did review the notes from fall. I did speak to nursing staff this morning. She has head CT that shows no acute intracranial findings. Alejandro Miranda MD
[2018-09-29] MEDS: Sodium Chloride 0.9% 1,000 ML IV SCH (20:21)
--- NOTE | 2018-09-29 21:32 | CP.PCM.PN ---
Subjective - Date & Time of Evaluation Date of Evaluation: 09/28/18 Time of Evaluation: 07:25 - Subjective Subjective: Patient noted to have slid from the bed last night. Patient still feels weak. Objective - Vital Signs/Intake and Output Vital Signs (last 24 hours): Temp Pulse Resp BP Pulse Ox 98 F 98 H 18 106/71 98 09/27/18 18:09 09/27/18 18:09 09/27/18 18:09 09/27/18 18:09 09/27/18 18:09 Intake and Output: 09/27/18 09/28/18 18:59 06:59 Intake Total 700 Output Total 500 Balance 200 - Medications Medications: Current Medications Alprazolam (Xanax) 0.25 mg PO BID [facility]; Protocol Stop: 09/30/18 22:16 Last Admin: 09/27/18 18:01 Dose: 0.25 mg Famotidine (Pepcid) 20 mg PO HS [facility] Last Admin: 09/27/18 21:29 Dose: 20 mg Fentanyl (Duragesic) 1 patch TD Q72H [facility] Last Admin: 09/27/18 12:55 Dose: 1 patch Heparin Sodium (Porcine) (Heparin) 5,000 units SC Q12 [facility]; Protocol Last Admin: 09/27/18 21:29 Dose: 5,000 units Meropenem (Merrem Iv 1 Gm Premix) 1 gm in 50 mls @ 100 mls/hr IVPB Q12 [facility]; Protocol Stop: 09/30/18 22:01 Last Admin: 09/27/18 21:28 Dose: 100 mls/hr Ipratropium [place] (Atrovent) 0.5 mg IH [id number] [facility] Last Admin: 09/27/18 19:15 Dose: 0.5 mg Levalbuterol HCl (Xopenex) 0.63 mg IH TIDRESP [facility] Last Admin: 09/27/18 19:15 Dose: 0.63 mg Lidocaine (Lidoderm) 1 ea TD DAILY [facility] Last Admin: 09/27/18 10:11 Dose: 1 ea Methylprednisolone (Solu-Medrol) 30 mg IVP Q12 [facility] Last Admin: 09/27/18 21:29 Dose: 30 mg Morphine Sulfate (Morphine) 1 mg IVP Q2 PRN PRN Reason: Pain, moderate (4-7) Last Admin: 09/27/18 12:55 Dose: 1 mg Morphine Sulfate (Morphine Extended Release Tab) 15 mg PO QID [facility] Last Admin: 09/27/18 21:28 Dose: 15 mg Polyethylene Glycol (Miralax) 17 gm PO BID [facility] Last Admin: 09/27/18 10:13 Dose: Not Given Propranolol HCl (Inderal) 10 mg PO TID [facility] Last Admin: 09/27/18 18:01 Dose: 10 mg - Labs Labs: 09/27/18 06:30 09/27/18 06:30 - Constitutional Appears: Chronically Ill - Head Exam Head Exam: NORMAL INSPECTION - Respiratory Exam Respiratory Exam: Decreased Breath Sounds - Cardiovascular Exam Cardiovascular Exam: +S1, +S2 - GI/Abdominal Exam GI & Abdominal Exam: Soft. absent: Tenderness Assessment and Plan - Assessment and Plan (Free Text) Plan: Assessment sepsis due to obstructive pneumonitis lung cancer history of severe sepsis from methicillin-sensitive staph aureus bacteremia, probably port-related bacteremia, S/P port removal history of left sided HCAP history of fever and neutropenia bilateral lower extremity swelling, consider venous stasis acute on chronic renal failure S/P Sepsis due to left lower HCAP, probably post-obstructive pneumonitis in a patient with poorly-differentiated squamous cell lung CA with cavitary lesion extensive smoking history Plan continue Merrem day 7 overall prognosis is poor
[2018-09-30] MEDS: Ipratropium 0.02% Inhal Soln (0.5 mg/2.5 ml) UD IH SCH ×4 (01:11→19:50)
--- NOTE | 2018-09-30 01:25 | PN ---
DATE: 09/29/2018 PULMONARY PROGRESS NOTE REFERRING PHYSICIAN: Leopoldo López MD SUBJECTIVE: She is sitting up in the bed. Family is at the bedside. Trying to eat dinner. No bowel movements for three days. Pain is a little bit better controlled. No nausea. No dysuria. No leg pain or leg swelling. OBJECTIVE: GENERAL: In no acute distress. VITAL SIGNS: Temperature is 98, heart rate is 87, respiratory rate is 18, blood pressure is 98/62, and pulse ox is 100% on 2 L nasal cannula. HEENT: Moist mucous membrane. No ulcer or thrush noted. NECK: Supple. No JVD. LUNGS: Has a scattered rhonchi and crackles. HEART: S1 and S2. ABDOMEN: Soft and nontender. No organomegaly. EXTREMITIES: No edema. NEUROLOGICAL: Awake and alert. Follows simple commands. MEDICATIONS: She is on Atrovent inhaled every 6 hours, heparin 5000 units subcutaneously every 12 hours, Inderal 10 mg three times a day, lidocaine patch to the affected area, meropenem 1 g IV every 12 hours, MiraLax 17 g twice a day, morphine sulfate SIDING MECH[employer]IC pump, Pepcid 20 mg at bedtime, IV fluid normal saline 60 mL per hour, Solu-Medrol 20 mg every 12 hours, Tylenol p.r.n., Xanax 0.5 mg every 6 hours, and Xopenex inhaled every 8 hours. Medication review noted. LABORATORY DATA: Hemoglobin 10.6, hematocrit 34.9, WBC of 16.2, and platelet count is 227. Sodium 135, potassium 3.9, chloride 91, bicarbonate 41, BUN 21, creatinine 0.8, glucose 105, calcium 9.2, phosphorus 2.3, and magnesium 1.9. AST of 39, ALT of 19, and alk phos is 88. Microbiology, blood culture has been negative. Chest x-ray done yesterday shows persistent airspace disease in the left lower lobe and moderate left pleural effusion. IMPRESSION AND PLAN: Stage IV lung cancer with progressive disease, obstructive lung disease, pulmonary hypertension, history of attention deficit disorder with hyperactivity, chronic renal insufficiency, left adrenal mass, chronic anemia, and renal failure. Pulmonary point of view, doing okay. Continue supplemental oxygen, bronchodilator, on steroids, careful with fluids, and may use stool softener. Overall poor prognosis. Thank you and we will follow with you. Nikita Hector MD
[2018-09-30] MEDS: MORPHINE PCA 1 MG/ML IV PRN ×2 (02:58→23:44)
--- NOTE | 2018-09-30 06:01 | CP.PCM.PN ---
Subjective - Date & Time of Evaluation Date of Evaluation: 09/30/18 Time of Evaluation: 06:13 - Subjective Subjective: No distress, lying in bed, 1:1 sitter post fall Reason for consultation: Cardiac evaluation of tachycardia, admitted for dehaydration, History of metastatic lung cancer, COPD, renal insufficiency, history of fall, recent fall. Seen and examined by me and Dr. Mathews Objective - Vital Signs/Intake and Output Vital Signs (last 24 hours): Temp Pulse Resp BP Pulse Ox 98.1 F 87 17 98/62 L 100 09/29/18 19:45 09/29/18 19:45 09/29/18 19:45 09/29/18 19:45 09/29/18 16:52 Intake and Output: 09/29/18 09/30/18 18:59 06:59 Intake Total 930 Output Total 1200 Balance -270 - Medications Medications: Current Medications Acetaminophen (Tylenol 325mg Tab) 650 mg PO Q6H PRN PRN Reason: Pain, Mild (1-3) Last Admin: 09/28/18 12:30 Dose: 650 mg Alprazolam (Xanax) 0.5 mg PO Q6 [facility]; Protocol Last Admin: 09/30/18 06:01 Dose: 0.5 mg Famotidine (Pepcid) 20 mg PO HS [facility] Last Admin: 09/29/18 21:55 Dose: 20 mg Heparin Sodium (Porcine) (Heparin) 5,000 units SC Q12 [facility]; Protocol Last Admin: 09/29/18 21:50 Dose: 5,000 units Meropenem (Merrem Iv 1 Gm Premix) 1 gm in 50 mls @ 100 mls/hr IVPB Q12 [facility]; Protocol Last Admin: 09/29/18 21:49 Dose: 100 mls/hr Morphine Sulfate (Morphine [employer] 1 Mg/Ml) 30 mls @ 0 mls/hr IV PRN PRN; Protocol PRN Reason: BENDING ROLL HAND PER MD ORDER Last Admin: 09/30/18 02:58 Dose: 1 mg/hr, 1 mls/hr Sodium Chloride (Sodium Chloride 0.9%) 1,000 mls @ 60 mls/hr IV .[id number] [facility] Last Admin: 09/29/18 20:21 Dose: 60 mls/hr Ipratropium [place] (Atrovent) 0.5 mg IH [id number] [facility] Last Admin: 09/30/18 01:11 Dose: Not Given Levalbuterol HCl (Xopenex) 0.63 mg IH TIDRESP [facility] Last Admin: 09/29/18 19:21 Dose: 0.63 mg Lidocaine (Lidoderm) 1 ea TD DAILY [facility] Last Admin: 09/29/18 09:35 Dose: Not Given Methylprednisolone (Solu-Medrol) 20 mg IVP Q12 [facility] Last Admin: 09/29/18 21:55 Dose: 20 mg Polyethylene Glycol (Miralax) 17 gm PO BID [facility] Last Admin: 09/29/18 17:11 Dose: 17 gm Propranolol HCl (Inderal) 10 mg PO TID [facility] Last Admin: 09/29/18 17:05 Dose: Not Given - Labs Labs: 09/29/18 09:44 09/29/18 09:44 - Constitutional Appears: Non-toxic, No Acute Distress - Head Exam Head Exam: NORMAL INSPECTION, NORMOCEPHALIC - Eye Exam Eye Exam: Normal appearance Pupil Exam: NORMAL ACCOMODATION - ENT Exam ENT Exam: Mucous Membranes Moist - Respiratory Exam Respiratory Exam: Decreased Breath Sounds, Clear to Ausculation Bilateral, NORMAL BREATHING PATTERN - Cardiovascular Exam Cardiovascular Exam: +S1, +S2 - GI/Abdominal Exam GI & Abdominal Exam: Soft, Normal Bowel Sounds - Extremities Exam Extremities Exam: Full ROM, Normal Capillary Refill - Neurological Exam Neurological Exam: Alert, Awake, Oriented x3 - Psychiatric Exam Psychiatric exam: Normal Affect, Normal Mood - Skin Skin Exam: Dry, Normal Color, Warm Assessment and Plan - Assessment and Plan (Free Text) Assessment: A 63 year old female who came in to the ER back pain due to fall. Admitted for dehydration.She has not been eating or drinking for the past 5 days prior to admission. 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 Cardiac consult was called to evaluate tachycardia. MUGA scan done on 02/18/18 showed LVEF of 35% moderate LV dysfunction and diffuse hypokinesis. Echo done on 07/29/18 and showed LVEF of 55%,moderately dilated RV, mild AR/MR, moderate TR, RVSP 57mmHg. Dehydration, on IV hydration, On Propanolol for tachycardia,controlled. Continue IV antibiotics per ID (pneumonia). Pulmonary and Oncology on consult. Had episode of fall last night. CT of head done-no bleeding. Fall precaution. 1: 1 sitter. Physical therapy. Plan: No distress 1:1 sitter, post fall Fall precaution Heart rate controlled Blood pressure stable Cardiac status stable Continue IV antibiotics per ID Solumedrol 30 mg BID, Propanolol 10 mg TID Continue current treatment Continue current medications No further cardiac work up as this point Pain management Physical therapy Discharge planning Will follow up Plan and treatment discussed with Dr. Mathews
[2018-09-30] MEDS: Levalbuterol 0.63 MG/3 ML Inhal Soln UD IH SCH ×3 (08:26→19:50)
[2018-09-30] MEDS: POLYETHYLENE GLYCOL 3350 17 GM/Dose PACKET PO SCH ×2 (09:32→20:33)
[2018-09-30] MEDS: MethylPREDNISolone 40 mg Vial IVP SCH ×2 (09:34→21:04)
[2018-09-30] MEDS: Meropenem IV 1 gm in NS 1 GM/50 ML BAG IVPB SCH ×2 (09:35→21:04)
[2018-09-30] MEDS: Lidocaine 5% Patch TD SCH (09:35)
[2018-09-30 11:43] LABS: BASO # 0.36 K/mm3 (0.0-2.0); BASO % 1.8 % (0.0-3.0); EOS % 0.2 % (1.5-5.0); HEMOGLOBIN 10.4 g/dL (12.0-16.0); LYMPH # 0.9 (1.2-3.4); LYMPH % 4.5 % (22.0-35.0); MEAN CORPUSCULAR HGB CONC 30.1 g/dl (31.0-37.0); MEAN PLATELET VOLUME 8.7 fl (7.0-11.0); MONO # 0.4 (0.1-0.6); MONO % 2.1 % (1.0-6.0); RBC 3.72 10^6/uL (3.5-6.1); RED CELL DISTRIBUTION WIDTH 17.4 % (11.5-14.5)
[2018-09-30 12:28] LABS: ALB/GLOB RATIO 0.9 (1.1-1.8); ALBUMIN 3.1 g/dL (3.0-4.8); ALT/SGPT 13 U/L (7-56); AST/SGOT 24 U/L (14-36); BLOOD UREA NITROGEN 17 mg/dL (7-21); CALCIUM 8.4 mg/dL (8.4-10.5); GFR NON-AFRICAN AMERICAN > 60
--- NOTE | 2018-09-30 13:01 | CP.PCM.PN ---
Subjective - Date & Time of Evaluation Date of Evaluation: 09/30/18 Time of Evaluation: 11:00 - Subjective Subjective: She is comfortable in bed. She is able to eat , but intake is poor. She is on Morphine JACQUARD CARD LACER since yesterday morning. She has lot of anxiety about family members coming from [place]. She cannot pin point pain to a particular spot. upon repeated asking she says back hurts. Pain is controlled most of the time . She has episodes of anxiety when she becomes very anxious and complains of pain all over the body. She doses off while talking in between and then wakes up with alertness and continues to talk. Continues to be on 1:1 sitter. Shortness of breath baseline, continues to be on Oxygen by nasal canula. Objective - Vital Signs/Intake and Output Vital Signs (last 24 hours): Temp Pulse Resp BP Pulse Ox 97.9 F 109 H 20 125/90 100 09/30/18 06:00 09/30/18 09:32 09/30/18 06:00 09/30/18 09:32 09/30/18 06:00 Intake and Output: 09/30/18 09/30/18 06:59 18:59 Intake Total 1990 Output Total 2500 Balance -510 - Medications Medications: Current Medications Acetaminophen (Tylenol 325mg Tab) 650 mg PO Q6H PRN PRN Reason: Pain, Mild (1-3) Last Admin: 09/28/18 12:30 Dose: 650 mg Alprazolam (Xanax) 0.5 mg PO Q4 PRN; Protocol PRN Reason: Anxiety Last Admin: 09/30/18 12:16 Dose: 0.5 mg Famotidine (Pepcid) 20 mg IVP DAILY [facility] Last Admin: 09/30/18 12:17 Dose: 20 mg Heparin Sodium (Porcine) (Heparin) 5,000 units SC Q12 [facility]; Protocol Last Admin: 09/30/18 09:34 Dose: 5,000 units Meropenem (Merrem Iv 1 Gm Premix) 1 gm in 50 mls @ 100 mls/hr IVPB Q12 [facility]; Protocol Last Admin: 09/30/18 09:35 Dose: 100 mls/hr Morphine Sulfate (Morphine Panel Lay Up Worker 1 Mg/Ml) 30 mls @ 0 mls/hr IV PRN PRN; Protocol PRN Reason: JACQUARD CARD LACER PER MD ORDER Last Admin: 09/30/18 02:58 Dose: 1 mg/hr, 1 mls/hr Sodium Chloride (Sodium Chloride 0.9%) 1,000 mls @ 60 mls/hr IV .[id number] [facility] Last Admin: 09/29/18 20:21 Dose: 60 mls/hr Ipratropium [place] (Atrovent) 0.5 mg IH [id number] [facility] Last Admin: 09/30/18 08:26 Dose: 0.5 mg Levalbuterol HCl (Xopenex) 0.63 mg IH TIDRESP [facility] Last Admin: 09/30/18 08:26 Dose: 0.63 mg Lidocaine (Lidoderm) 1 ea TD DAILY [facility] Last Admin: 09/30/18 09:35 Dose: 1 ea Methylprednisolone (Solu-Medrol) 20 mg IVP Q12 [facility] Last Admin: 09/30/18 09:34 Dose: 20 mg Polyethylene Glycol (Miralax) 17 gm PO BID [facility] Last Admin: 09/30/18 09:32 Dose: 17 gm Propranolol HCl (Inderal) 10 mg PO TID [facility] Last Admin: 09/30/18 09:32 Dose: 10 mg - Labs Labs: 09/30/18 11:30 09/30/18 11:30 - Constitutional Appears: Non-toxic, Cachectic - Head Exam Head Exam: ATRAUMATIC, NORMAL INSPECTION, NORMOCEPHALIC - Eye Exam Eye Exam: Normal appearance - ENT Exam ENT Exam: Mucous Membranes Moist, Normal Exam - Neck Exam Neck Exam: Normal Inspection - Respiratory Exam Respiratory Exam: Decreased Breath Sounds, Clear to Ausculation Bilateral - Cardiovascular Exam Cardiovascular Exam: REGULAR RHYTHM, +S1, +S2 - GI/Abdominal Exam GI & Abdominal Exam: Soft, Normal Bowel Sounds - Back Exam Back Exam: NORMAL INSPECTION - Neurological Exam Neurological Exam: Alert, Awake, CN II-XII Intact, Oriented x3 - Skin Skin Exam: Normal Color, Warm Assessment and Plan - Assessment and Plan (Free Text) Assessment: !. Stage IV lung Cancer, squamous type. new onset bone mets. last chemo was few weeks ago Opdivo. First dose. progressive disease. 2. Pain ; cannot be localized. She stated back, allover. On morphine JACQUARD CARD LACER. I will keep same dose. She is lightly sedated. Awake most of the time. More anxiety issue than pain. Increased xanax 0.5 mg every [address]iscuss[address] with Dr. Ariza, Psych Road Train Driver . Consult requested. X ray spine lumbo sacral 3.Renal functions normal limits. Electrolytes normal. 4. Hb/Hct normal. 5. Continue DVT prophylaxis with heparin 5000 SQ BID. 6. STAFF DEVELOPER : normal insight and judgment. No sensory motor deficit. Lot of social issues. Spoke to Elsa at length in presence of our Staff Nurse regarding hospice/supportive care. She indicated that her family pressurizing her for hospice but she wants to continue treatment for lung cancer as long as she can. She understands well her poor prognosis and progression of disease. She said that 'Its my green party and I want to run it the way I want to '. She also communicated to me that she does not want me to communicate to her family or friends including her health care proxy Ms. So except in her presence. I tried to ask her who among her family she can trust and wants us to c ommunicate. She indicated Ms. Leija , her sister -in law, who lives in [place]. She will contact her insurance verifier to make her POA and health care proxy . I also asked her if she has any issues with the treatment she is receiving as one of the family members/friend called hospital hot line at 3 am to complain about the care she is receiving and what more we can do to help her. She communicated that she does not have any problem with my care or any other issues with hospital care. she said 'don't talk to my family, they want to know too much about me and I don't like that'. She said that 'they left me all alone to take care of my mother and nobody would help me then , its my turn now and they are not very helpful, I don't trust them." She also stated that she wants her son's custody with Liss, her sister in law. She also said that she has lot of anxiety because her brother and sister coming from [place]. I asked her the reason for that, she said that they will compel her make decisions against her wishes. She said that her brother Mr. Lantigua wants her to be off chemo and do fruit infusions that she does not agree with. She does not want to move to [place] as they told her before. Her other concerns are about continuing treatment for lung cancer that family is against. I reassured her that we will respect her wishes and also advised her to designate health care proxy whom we can communicate. Ms. So asked me to talk to her privately when she saw me in the hallway. I communicated to her that I don't have permission from Elsa to do that. Discussed the goal during this hospitalization with Elsa and nursing staff. Pain control and transition to oral pain meds. She wants to go home with home care services. Discussed with Laser Set Up Operator Ms. Smiley, health social work professor. Risk management consulted regarding complicated family dynamics and patient's concerns as stated above.
--- NOTE | 2018-09-30 15:04 | CP.PCM.PN ---
Subjective - Date & Time of Evaluation Date of Evaluation: 09/29/18 Time of Evaluation: 18:00 - Subjective Subjective: She fell last night. It was a mechanical fall. She tried to sit on Commode unassisted and missed the seat. She has been put on 1:[address] head done last night unremarkable. She refused remote tele monitoring. Started on morphine MASK LAYOUT DESIGNER this morning for pain. She has lot of anxiety and has episodes of extreme anxiety and pain all over the body. She is not able to pin point pain to any site. No increase in shortness of breath. No fever. Continues to be on oxygen by nasal canula. Renal functions improved. Objective - Vital Signs/Intake and Output Vital Signs (last 24 hours): Temp Pulse Resp BP Pulse Ox 97.9 F 109 H 20 125/90 100 09/30/18 06:00 09/30/18 09:32 09/30/18 06:00 09/30/18 09:32 09/30/18 06:00 Intake and Output: 09/30/18 09/30/18 06:59 18:59 Intake Total 1990 Output Total 2500 Balance -510 - Medications Medications: Current Medications Acetaminophen (Tylenol 325mg Tab) 650 mg PO Q6H PRN PRN Reason: Pain, Mild (1-3) Last Admin: 09/28/18 12:30 Dose: 650 mg Alprazolam (Xanax) 0.5 mg PO Q4 PRN; Protocol PRN Reason: Anxiety Last Admin: 09/30/18 12:16 Dose: 0.5 mg Famotidine (Pepcid) 20 mg IVP DAILY [facility] Last Admin: 09/30/18 12:17 Dose: 20 mg Heparin Sodium (Porcine) (Heparin) 5,000 units SC Q12 [facility]; Protocol Last Admin: 09/30/18 09:34 Dose: 5,000 units Meropenem (Merrem Iv 1 Gm Premix) 1 gm in 50 mls @ 100 mls/hr IVPB Q12 [facility]; Protocol Last Admin: 09/30/18 09:35 Dose: 100 mls/hr Morphine Sulfate (Morphine Credit Rating Checker 1 Mg/Ml) 30 mls @ 0 mls/hr IV PRN PRN; Protocol PRN Reason: MASK LAYOUT DESIGNER PER MD ORDER Last Admin: 09/30/18 02:58 Dose: 1 mg/hr, 1 mls/hr Sodium Chloride (Sodium Chloride 0.9%) 1,000 mls @ 60 mls/hr IV .[id number] [facility] Last Admin: 09/29/18 20:21 Dose: 60 mls/hr Ipratropium [place] (Atrovent) 0.5 mg IH [id number] [facility] Last Admin: 09/30/18 08:26 Dose: 0.5 mg Levalbuterol HCl (Xopenex) 0.63 mg IH TIDRESP [facility] Last Admin: 09/30/18 08:26 Dose: 0.63 mg Lidocaine (Lidoderm) 1 ea TD DAILY [facility] Last Admin: 09/30/18 09:35 Dose: 1 ea Methylprednisolone (Solu-Medrol) 20 mg IVP Q12 [facility] Last Admin: 09/30/18 09:34 Dose: 20 mg Polyethylene Glycol (Miralax) 17 gm PO BID [facility] Last Admin: 09/30/18 09:32 Dose: 17 gm Propranolol HCl (Inderal) 10 mg PO TID [facility] Last Admin: 09/30/18 09:32 Dose: 10 mg - Labs Labs: 09/30/18 11:30 09/30/18 11:30 - Constitutional Appears: Non-toxic, Cachectic, Chronically Ill - Head Exam Head Exam: ATRAUMATIC, NORMAL INSPECTION, NORMOCEPHALIC - Eye Exam Eye Exam: Normal appearance Pupil Exam: NORMAL ACCOMODATION - ENT Exam ENT Exam: Mucous Membranes Moist, Normal Exam - Neck Exam Neck Exam: Normal Inspection - Respiratory Exam Respiratory Exam: Decreased Breath Sounds, Clear to Ausculation Bilateral, NORMAL BREATHING PATTERN Additional comments: mild respiratory distress - Cardiovascular Exam Cardiovascular Exam: REGULAR RHYTHM, +S1, +S2 - GI/Abdominal Exam GI & Abdominal Exam: Soft, Normal Bowel Sounds - Extremities Exam Extremities Exam: Normal Capillary Refill, Normal Inspection - Back Exam Back Exam: NORMAL INSPECTION - Neurological Exam Neurological Exam: Alert, Awake, CN II-XII Intact, Oriented x3 - Psychiatric Exam Psychiatric exam: Anxious - Skin Skin Exam: Pallor, Warm Assessment and Plan - Assessment and Plan (Free Text) Assessment: 1. COPD terminal. long standing history of heavy smoking since the age of 18 ye ars. Baseline hypoxia. On home oxygen, does not use it. On bronchodilators, IV steroids. Dr. Hicks, pulmonary following. On IV antibiotics, meropenem. ID Dr. Tucker following. 2. Stage IV squamus cell Cancer. New onset bony mets. Last treatment OPdivo 3 weeks ago, first dose.. progressive disease. patient understand poor prognosis. 3. pain : on morphine MASK LAYOUT DESIGNER since morning. Pain fairly controlled, except during episodes of anxiety when she complains of pain all over. She is mildly sedated with MASK LAYOUT DESIGNER. Xanax increased to 0.5mgCV : BP Q 6 hrs scheduled. 4. CV : BP lower, 97- 100 systolic. Likely due to morphine MASK LAYOUT DESIGNER. Start NS at 60 cc/hr. cardiology Dr. Mathews following. 5. heme : blood counts stable . WC declining. Hb/Hct stable. 6. renal : stable renal functions. Lytes normal. 7. MEETING PLANNER : mildly sedated at times for few seconds but alert most of the time. No sensory/motor deficit. Discussed with Elsa about pain management. She communicated to me that she wants to be discharged tomorrow because she has to go bank tomorrow to take care of her stuff. I advised her that will not be possible as we have to control pain and wean her to oral pain meds. I asked her that her family is coming from [place] and can help her with her personal business. She said that she loves them but she do not trust them. She had an anxiety episode while talking about her relationships with family members. I calmed her down and told her that we will get Psych consult to help with anxiety and increased the xanax to every six hours. Discussed with staff Nurse.
--- NOTE | 2018-09-30 15:21 | CP.PCM.PN ---
Subjective - Date & Time of Evaluation Date of Evaluation: 09/28/18 Time of Evaluation: 09:00 - Subjective Subjective: Complaining of pain all over. She was started on Fentanyl patch yesterday. No fever, cough. Shortness of breath baseline. She is able to ambulate in room without difficulty. Apatite decreased, but eating. She declined ensure or other protein supplements. her friend Saray at bedside. She was asking Elsa to choose hospice and telling her ' you are terminal Elsa ". Elsa was very disturbed with that and developed lot of anxiety suddenly. Objective - Vital Signs/Intake and Output Vital Signs (last 24 hours): Temp Pulse Resp BP Pulse Ox 97.9 F 109 H 20 125/90 100 09/30/18 06:00 09/30/18 09:32 09/30/18 06:00 09/30/18 09:32 09/30/18 06:00 Intake and Output: 09/30/18 09/30/18 06:59 18:59 Intake Total 1990 Output Total 2500 Balance -510 - Medications Medications: Current Medications Acetaminophen (Tylenol 325mg Tab) 650 mg PO Q6H PRN PRN Reason: Pain, Mild (1-3) Last Admin: 09/28/18 12:30 Dose: 650 mg Alprazolam (Xanax) 0.25 mg PO Q4 PRN; Protocol PRN Reason: Anxiety Famotidine (Pepcid) 20 mg IVP DAILY [facility] Last Admin: 09/30/18 12:17 Dose: 20 mg Heparin Sodium (Porcine) (Heparin) 5,000 units SC Q12 [facility]; Protocol Last Admin: 09/30/18 09:34 Dose: 5,000 units Meropenem (Merrem Iv 1 Gm Premix) 1 gm in 50 mls @ 100 mls/hr IVPB Q12 [facility]; Protocol Last Admin: 09/30/18 09:35 Dose: 100 mls/hr Morphine Sulfate (Morphine Piano Tuner 1 Mg/Ml) 30 mls @ 0 mls/hr IV PRN PRN; Protocol PRN Reason: MANAGER CASE MANAGEMENT PER MD ORDER Last Admin: 09/30/18 02:58 Dose: 1 mg/hr, 1 mls/hr Sodium Chloride (Sodium Chloride 0.9%) 1,000 mls @ 60 mls/hr IV .[id number] [facility] Last Admin: 09/29/18 20:21 Dose: 60 mls/hr Ipratropium [place] (Atrovent) 0.5 mg IH [id number] [facility] Last Admin: 09/30/18 14:40 Dose: 0.5 mg Levalbuterol HCl (Xopenex) 0.63 mg IH TIDRESP [facility] Last Admin: 09/30/18 14:40 Dose: 0.63 mg Lidocaine (Lidoderm) 1 ea TD DAILY [facility] Last Admin: 09/30/18 09:35 Dose: 1 ea Methylprednisolone (Solu-Medrol) 20 mg IVP Q12 [facility] Last Admin: 09/30/18 09:34 Dose: 20 mg Polyethylene Glycol (Miralax) 17 gm PO BID [facility] Last Admin: 09/30/18 09:32 Dose: 17 gm Potassium Phos/Sodium Phos (Neutra-Phos) 1 pkt PO DAILY [facility] Propranolol HCl (Inderal) 10 mg PO TID [facility] Last Admin: 09/30/18 09:32 Dose: 10 mg - Labs Labs: 09/30/18 11:30 09/30/18 11:30 - Constitutional Appears: Cachectic, Chronically Ill - Head Exam Head Exam: ATRAUMATIC, NORMAL INSPECTION, NORMOCEPHALIC - Eye Exam Eye Exam: Normal appearance Pupil Exam: NORMAL ACCOMODATION - ENT Exam ENT Exam: Mucous Membranes Moist, Normal Exam - Neck Exam Neck Exam: Normal Inspection - Respiratory Exam Respiratory Exam: Decreased Breath Sounds, Clear to Ausculation Bilateral, NORMAL BREATHING PATTERN - Cardiovascular Exam Cardiovascular Exam: REGULAR RHYTHM, +S1, +S2 - GI/Abdominal Exam GI & Abdominal Exam: Soft, Normal Bowel Sounds - Extremities Exam Extremities Exam: Normal Capillary Refill, Normal Inspection - Back Exam Back Exam: NORMAL INSPECTION - Neurological Exam Neurological Exam: Alert, Awake, CN II-XII Intact, Oriented x3 - Psychiatric Exam Psychiatric exam: Anxious - Skin Skin Exam: Pallor, Warm Assessment and Plan - Assessment and Plan (Free Text) Assessment: 1. COPD advanced . Dr. Hicks following. On bronchodilators, steroids. On pepcid for gastric prophylaxis. 2. Pulmonary hypertension related to COPD. baseline hypoxia. 3. Lung Cancer . Stage IV. progressive disease . new bone mets. Zometa 4 mg IV to be given over 30 minutes. Last treatment with Opdivo few weeks ago. This was the first dose started for progressive disease. Patient is aware of poor prognosis and wants to continue treatment upon discharge from hospital. She told me not to listen to her friend Saray, who is her health care proxy also. She said she will call her assistant prosecuting attorney today, place things in order. I assured her that her wishes will be respected and that she has the right to make her own independent decisions. 4. Renal functions improved, normal now. Dr. Miranda, renal following. 5. Heme : blood counts stable. 6. CONSTRUCTION CREW MEMBER : no sensory motor deficit. 7. Pain : morphine discontinued. Dilaudid 2 mg Q 3 hr prn started. Continue MS contin 15 mg tid. Hold for sedation. Xanax-0.25 tid. 8. Miralax; BID. 9. Continue DVT prophylaxis heparin 5000 BId. discussed with the staff Nurse.
--- NOTE | 2018-09-30 15:45 | RAD ---
Date of service: 09/30/2018 HISTORY: back pain, h/o fall COMPARISON: No prior. TECHNIQUE: 2 views obtained. FINDINGS: BONES: There is scoliosis convex to the right with a Jamison angle of 30 degrees. DISC SPACES: Normal. SOFT TISSUES: Normal. OTHER FINDINGS: None. IMPRESSION: There is scoliosis convex to the right with a Jamison angle of 30 degrees. No acute findings
[2018-09-30] MEDS: Potassium & Sodium Phosphate PO SCH ×2 (16:17→16:18)
[2018-09-30] MEDS: Sodium Chloride 0.9% 1,000 ML IV SCH (16:18)
--- NOTE | 2018-09-30 16:40 | PN ---
DATE: 09/30/2018 PULMONARY PROGRESS NOTE REFERRING PHYSICIAN: Christine Wood MD SUBJECTIVE: The patient is lying in bed, sleepy, arousable, under one-to-one supervision. Night was unremarkable. Not much cough, no sputum production, still have some back pain right-sided pain, no vomiting, no leg pain or leg swelling. OBJECTIVE: VITAL SIGNS: Temperature is 98, heart rate is 109, respiratory rate is 20, blood pressure 125/90, pulse ox is 100% on nasal cannula. HEENT: Moist mucous membranes. No ulcer or thrush noted. NECK: Supple. No JVD. LUNGS: Decreased breath sounds. Scattered rhonchi. HEART: S1 and S2. ABDOMEN: Soft, nontender, no organomegaly. EXTREMITIES: No edema. NEUROLOGIC: Sleepy arousable. Follows simple commands. MEDICATIONS: She is on Atrovent inhaler every 6 hours, heparin 5000 units subcutaneously every 8 hours, three times a day, lidocaine patch daily, meropenem 1 g IV every 12 hours, MiraLax 17 g daily, morphine CERTIFIED PHYSICIAN'S ASSISTANT pump, Pepcid 20 mg daily, IV fluid normal saline 60 mL per hour, Tylenol p.r.n., Xanax 0.5 mg every 4 hours p.r.n., and Xopenex every 8 hours. LABORATORY DATA: Shows, hemoglobin 10.4, hematocrit 34.6, WBC of 20,000, and platelet is 212. Sodium 135, potassium 4.1, chloride 92, bicarbonate 39, BUN 17, creatinine 0.7, glucose 128, calcium 8.4, phosphorus 1.5, and magnesium 1.9, AST 24, ALT 13, and alkaline phosphatase is 92, albumin is 3.1. Microbiology, blood culture has been negative. IMPRESSION AND PLAN: Stage IV lung cancer with progressive disease, obstructive lung disease, pulmonary hypertension, history of attention deficit disorder, chronic renal insufficiency, left adrenal mass, chronic anemia, and renal failure. Overall very poor prognosis. Continue bronchodilators, keep head at 45 degrees, pain management, gastric prophylaxis, SCD to lower extremity. Thank you and we will follow with you. Nikita Hector MD
--- NOTE | 2018-09-30 17:01 | CP.PCM.PN ---
<Fabby Childers - Last Filed: 09/30/18 16:58> Subjective - Date & Time of Evaluation Date of Evaluation: 09/30/18 Time of Evaluation: 10:00 - Subjective Subjective: Progress Note for Dr. Miranda Patient was seen and examined at bedside. Patient is resting flat with 1:1 sitter at bedside. As per nursing staff, patient has not had a bm for a couple days. Patient denied fever, chills, shortness of breath, chest pains, abdominal pains, nausea, vomiting, diarrhea, dysuria. Objective - Vital Signs/Intake and Output Vital Signs (last 24 hours): Temp Pulse Resp BP Pulse Ox 97.3 F L 92 H 18 100/67 100 09/30/18 16:21 09/30/18 16:21 09/30/18 16:21 09/30/18 16:21 09/30/18 16:21 Intake and Output: 09/30/18 09/30/18 06:59 18:59 Intake Total 1990 Output Total 2500 Balance -510 - Medications Medications: Current Medications Acetaminophen (Tylenol 325mg Tab) 650 mg PO Q6H PRN PRN Reason: Pain, Mild (1-3) Last Admin: 09/28/18 12:30 Dose: 650 mg Alprazolam (Xanax) 0.25 mg PO Q4 PRN; Protocol PRN Reason: Anxiety Last Admin: 09/30/18 16:20 Dose: 0.25 mg Famotidine (Pepcid) 20 mg IVP DAILY [facility] Last Admin: 09/30/18 12:17 Dose: 20 mg Heparin Sodium (Porcine) (Heparin) 5,000 units SC Q12 [facility]; Protocol Last Admin: 09/30/18 09:34 Dose: 5,000 units Meropenem (Merrem Iv 1 Gm Premix) 1 gm in 50 mls @ 100 mls/hr IVPB Q12 [facility]; Protocol Last Admin: 09/30/18 09:35 Dose: 100 mls/hr Morphine Sulfate (Morphine Director Of Financial Planning 1 Mg/Ml) 30 mls @ 0 mls/hr IV PRN PRN; Protocol PRN Reason: REGIONAL SALES COORDINATOR PER MD ORDER Last Admin: 09/30/18 02:58 Dose: 1 mg/hr, 1 mls/hr Sodium Chloride (Sodium Chloride 0.9%) 1,000 mls @ 60 mls/hr IV .[id number] [facility] Last Admin: 09/30/18 16:18 Dose: 60 mls/hr Ipratropium [place] (Atrovent) 0.5 mg IH [id number] [facility] Last Admin: 09/30/18 14:40 Dose: 0.5 mg Levalbuterol HCl (Xopenex) 0.63 mg IH TIDRESP [facility] Last Admin: 09/30/18 14:40 Dose: 0.63 mg Lidocaine (Lidoderm) 1 ea TD DAILY [facility] Last Admin: 09/30/18 09:35 Dose: 1 ea Methylprednisolone (Solu-Medrol) 20 mg IVP Q12 [facility] Last Admin: 09/30/18 09:34 Dose: 20 mg Polyethylene Glycol (Miralax) 17 gm PO BID [facility] Last Admin: 09/30/18 09:32 Dose: 17 gm Potassium Phos/Sodium Phos (Neutra-Phos) 1 pkt PO DAILY [facility] Last Admin: 09/30/18 16:18 Dose: 1 pkt Propranolol HCl (Inderal) 10 mg PO TID [facility] Last Admin: 09/30/18 15:16 Dose: Not Given - Labs Labs: 09/30/18 11:30 09/30/18 11:30 - Constitutional Appears: Cachectic, Chronically Ill - Head Exam Head Exam: ATRAUMATIC, NORMAL INSPECTION, NORMOCEPHALIC - Eye Exam Eye Exam: EOMI, Normal appearance, PERRL Pupil Exam: NORMAL ACCOMODATION, PERRL - ENT Exam ENT Exam: Mucous Membranes Dry - Respiratory Exam Respiratory Exam: Clear to Ausculation Bilateral, NORMAL BREATHING PATTERN - Cardiovascular Exam Cardiovascular Exam: REGULAR RHYTHM, +S1, +S2. absent: Murmur - GI/Abdominal Exam GI & Abdominal Exam: Soft, Normal Bowel Sounds. absent: Tenderness - Extremities Exam Extremities Exam: Full ROM, Normal Capillary Refill, Normal Inspection. absent: Joint Swelling, Pedal Edema - Back Exam Back Exam: vertebral tenderness - Neurological Exam Neurological Exam: Alert, Awake, CN II-XII Intact, Oriented x3 - Psychiatric Exam Psychiatric exam: Normal Affect, Normal Mood - Skin Skin Exam: Dry, Intact, Normal Color, Warm Assessment and Plan - Assessment and Plan (Free Text) Assessment: 1. Sepsis with hcap 2. stage 4 lung ca on opdivo 3. End -stage COPD 4. FAMILIA in setting of CKD 3 -resovled 3. Anemia 4. Hypercalcemia 5. Pulmonary HTN 6. ADHD 7. Anxiety 8. Constipation plan: Patient is sitting comfortably. She is on abx for her HCAP, merrem as per ID. Patient had her last Opdivo 2 weeks ago, Dr. Wood following. Echo done on 07/29/18 and showed LVEF of 55%,moderately dilated RV, mild AR/MR, moderate TR, RVSP 57mmHg. CKD 3 stable. Hypercalcemia addressed with zoldrionic acid. Patient is on propranolol 10 TID which should also address her sinus tachycardia, stable HR now. Will continue spiriva, tapering solumedrol, ipatropium and xopenex for COPD. Patient is on xanax for anxiety. Patient is on lactulose and miralax for constipation. Patient has poor nutritional status. Renal diet. DVT ppx with heparin, and pain control on morphine REGIONAL SALES COORDINATOR and mildly sedated. Xanax increased to 0.5mg. Patient's family to visit and consider hospice tomorrow. Seen reviewed and discussed with Dr. Miranda <Alejandro Miranda S - Last Filed: 09/30/18 21:17> Objective - Vital Signs/Intake and Output Vital Signs (last 24 hours): Temp Pulse Resp BP Pulse Ox 97.3 F L 92 H 18 100/67 100 09/30/18 18:00 09/30/18 19:13 09/30/18 18:00 09/30/18 19:13 09/30/18 16:21 Intake and Output: 09/30/18 10/01/18 18:59 06:59 Intake Total 780 Output Total 1600 Balance -820 - Medications Medications: Current Medications Acetaminophen (Tylenol 325mg Tab) 650 mg PO Q6H PRN PRN Reason: Pain, Mild (1-3) Last Admin: 09/28/18 12:30 Dose: 650 mg Alprazolam (Xanax) 0.25 mg PO Q4 PRN; Protocol PRN Reason: Anxiety Last Admin: 09/30/18 21:04 Dose: 0.25 mg Famotidine (Pepcid) 20 mg IVP DAILY [facility] Last Admin: 09/30/18 12:17 Dose: 20 mg Heparin Sodium (Porcine) (Heparin) 5,000 units SC Q12 [facility]; Protocol Last Admin: 09/30/18 09:34 Dose: 5,000 units Meropenem (Merrem Iv 1 Gm Premix) 1 gm in 50 mls @ 100 mls/hr IVPB Q12 [facility]; Protocol Last Admin: 09/30/18 21:04 Dose: 100 mls/hr Morphine Sulfate (Morphine Director Of Financial Planning 1 Mg/Ml) 30 mls @ 0 mls/hr IV PRN PRN; Protocol PRN Reason: REGIONAL SALES COORDINATOR PER MD ORDER Last Admin: 09/30/18 02:58 Dose: 1 mg/hr, 1 mls/hr Sodium Chloride (Sodium Chloride 0.9%) 1,000 mls @ 60 mls/hr IV .[id number] [facility] Last Admin: 09/30/18 16:18 Dose: 60 mls/hr Ipratropium [place] (Atrovent) 0.5 mg IH [id number] [facility] Last Admin: 09/30/18 19:50 Dose: 0.5 mg Levalbuterol HCl (Xopenex) 0.63 mg IH TIDRESP [facility] Last Admin: 09/30/18 19:50 Dose: 0.63 mg Lidocaine (Lidoderm) 1 ea TD DAILY [facility] Last Admin: 09/30/18 09:35 Dose: 1 ea Methylprednisolone (Solu-Medrol) 20 mg IVP Q12 [facility] Last Admin: 09/30/18 21:04 Dose: 20 mg Polyethylene Glycol (Miralax) 17 gm PO BID [facility] Last Admin: 09/30/18 20:33 Dose: Not Given Potassium Phos/Sodium Phos (Neutra-Phos) 1 pkt PO DAILY [facility] Last Admin: 09/30/18 16:18 Dose: 1 pkt Propranolol HCl (Inderal) 10 mg PO TID [facility] Last Admin: 09/30/18 19:13 Dose: Not Given - Labs Labs: 09/30/18 11:30 09/30/18 11:30 Assessment and Plan - Assessment and Plan (Free Text) Assessment: Pt seen and examined by me. I have reviewed the note of the medical donation professional and I agree with it. I have discussed the assessment and plan with the resident. I have reviewed the medications and the last labs.
--- NOTE | 2018-09-30 20:12 | CON ---
DATE OF CONSULTATION: 09/30/2018 HISTORY OF PRESENT ILLNESS: In short, the patient is a 63-year-old female with multiple medical issues including metastatic lung cancer. The patient was admitted on the medical side for dehydration and status post fall and generalized body-aches. Psych consult was called for evaluation of anxiety. This continuity writer is very familiar with this patient from the previous admission on the medical side, and this continuity writer was involved into the patient's care as a personnel consultant. The patient presented with the similar way with anxiety, and the patient was relatively stabilized on small dose of Xanax back then. Last time this continuity writer saw the patient was on 09/03/2018. This continuity writer diagnosed the patient with possible adjustment disorder or mood disorder due to general medical condition. The patient was seen and examined today, had prolonged conversation with primary care physician, Dr. Wood. The patient presented to be sleepy, easily arousable. The patient complained of generalized pain and anxiety. The patient denied any thoughts of harming herself. Denied thoughts of harming others. The patient has transient feeling of anxiousness. Denied hearing voices, denied seeing things. PHYSICAL EXAMINATION: VITAL SIGNS: Reviewed. Temperature is 97.9, pulse is 109, blood pressure 125/90, respirations 20, and oxygen saturation is 100. MEDICATIONS: Reviewed. Tylenol, Xanax will be decreased to 0.25 mg every 4 hours as needed for anxiety. The patient is on Pepcid, heparin, Atrovent, Xopenex, Lidoderm, meropenem, Solu-Medrol, morphine, MiraLax, Inderal, and sodium chloride. LABORATORY DATA: Labs reviewed. Most recent was from today. White blood cells 20. Chemistry reviewed. Microbiology reviewed. MENTAL STATUS EXAMINATION: The patient presented to be sleepy, easily arousable, poor eye contact. Speech was under productive, low volume. Mood described as anxious and in pain. Affect was constricted, tearful. Thought process seems to be coherent and goal-directed. Thought content, the patient denied visual, auditory, or tactile hallucinations. Denied paranoid ideation. The patient denied thoughts of harming herself or others, denied intent or plan. Insight and judgment seemed to be fair. Impulses are well controlled. IMPRESSION: Most likely, the patient has anxiety due to general medical condition, rule out mood disorder due to general medical condition, rule out adjustment disorder. PLAN: Xanax was decreased to 0.25 mg every 4 hours. The patient is on one to one observation because the patient has high risk of falls. Discussed with Dr. Wood; Dr. Wood raised concern about the patient's family and disruptive behavior while the patient is on the medical side all the time. When the patient's family comes, the patient feels more anxious. Also, Dr. Wood raised concern about power of pneudraulic systems mechanic. These issues were discussed with the patient. The patient is aware that she can make a request of no visitation from the family, if she feels overwhelmed and anxious. The patient was appreciative, but still the patient wants her family to visit her. In regard of the power of pneudraulic systems mechanic, the patient said that she wants to think carefully whom she would like to point as a power of pneudraulic systems mechanic. As of now, power of pneudraulic systems mechanic is the patient's friend, but this continuity writer did not see any official documents in the chart, so this continuity writer will follow up on this patient and advise accordingly. Should you have any questions give me a call back. Annita Cadet MD
[2018-10-01] MEDS: Ipratropium 0.02% Inhal Soln (0.5 mg/2.5 ml) UD IH SCH ×4 (01:36→19:31)
--- NOTE | 2018-10-01 02:44 | PN ---
DATE: 09/30/2018 The patient has no complaints of any chest pain. No shortness of breath. No headache or dizziness. The patient was seen and examined. I do agree with the note of the medical technologist hematology. She has been placed on one-to-one for safety. The patient had sepsis secondary to hospital-acquired pneumonia. She has stage IV lung CA and is on morphine pump for pain. The patient has chronic anemia. She had acute kidney injury and creatinine did improve. She has underlying CKD stage III. She has pulmonary hypertension that is chronic. She is on Solu-Medrol. She is on DuoNeb treatments. This will be continued. She is on Xanax for anxiety. The patient is going to be evaluated for hospice. The patient's family is coming tomorrow to speak with the hospice team as well as the rn social services. Alejandro Miranda MD
[2018-10-01] MEDS: Sodium Chloride 0.9% 1,000 ML IV SCH (06:27)
--- NOTE | 2018-10-01 07:38 | CP.PCM.PN ---
Subjective - Date & Time of Evaluation Date of Evaluation: 10/01/18 Time of Evaluation: 06:55 - Subjective Subjective: No distress, lying in bed, no distress Reason for consultation and follow up: Cardiac evaluation of tachycardia, admitted for dehaydration, History of metastatic lung cancer, COPD, renal insufficiency, history of fall, recent fall. Seen and examined by me and Dr. Mathews Objective - Vital Signs/Intake and Output Vital Signs (last 24 hours): Temp Pulse Resp BP Pulse Ox 97.3 F L 18 L 18 100/67 100 09/30/18 18:00 10/01/18 06:00 09/30/18 22:00 09/30/18 19:13 09/30/18 16:21 Intake and Output: 10/01/18 10/01/18 06:59 18:59 Intake Total 1170 Output Total 3200 Balance -2030 - Medications Medications: Current Medications Acetaminophen (Tylenol 325mg Tab) 650 mg PO Q6H PRN PRN Reason: Pain, Mild (1-3) Last Admin: 09/28/18 12:30 Dose: 650 mg Alprazolam (Xanax) 0.25 mg PO Q4 PRN; Protocol PRN Reason: Anxiety Last Admin: 10/01/18 04:02 Dose: 0.25 mg Famotidine (Pepcid) 20 mg IVP DAILY [facility] Last Admin: 09/30/18 12:17 Dose: 20 mg Heparin Sodium (Porcine) (Heparin) 5,000 units SC Q12 [facility]; Protocol Last Admin: 09/30/18 23:35 Dose: 5,000 units Meropenem (Merrem Iv 1 Gm Premix) 1 gm in 50 mls @ 100 mls/hr IVPB Q12 [facility]; Protocol Last Admin: 09/30/18 21:04 Dose: 100 mls/hr Morphine Sulfate (Morphine Senior Technical Program Manager 1 Mg/Ml) 30 mls @ 0 mls/hr IV PRN PRN; Protocol PRN Reason: CLIENT CARE MANAGER PER MD ORDER Last Admin: 09/30/18 23:44 Dose: 1 mg/hr, 1 mls/hr Sodium Chloride (Sodium Chloride 0.9%) 1,000 mls @ 60 mls/hr IV .[id number] [facility] Last Admin: 10/01/18 06:27 Dose: 60 mls/hr Ipratropium [place] (Atrovent) 0.5 mg IH [id number] [facility] Last Admin: 10/01/18 01:36 Dose: Not Given Levalbuterol HCl (Xopenex) 0.63 mg IH TIDRESP [facility] Last Admin: 09/30/18 19:50 Dose: 0.63 mg Lidocaine (Lidoderm) 1 ea TD DAILY [facility] Last Admin: 09/30/18 09:35 Dose: 1 ea Methylprednisolone (Solu-Medrol) 20 mg IVP Q12 [facility] Last Admin: 09/30/18 21:04 Dose: 20 mg Polyethylene Glycol (Miralax) 17 gm PO BID [facility] Last Admin: 09/30/18 20:33 Dose: Not Given Potassium Phos/Sodium Phos (Neutra-Phos) 1 pkt PO DAILY [facility] Last Admin: 09/30/18 16:18 Dose: 1 pkt Propranolol HCl (Inderal) 10 mg PO TID [facility] Last Admin: 09/30/18 19:13 Dose: Not Given - Labs Labs: 09/30/18 11:30 09/30/18 11:30 - Constitutional Appears: Non-toxic, No Acute Distress - Head Exam Head Exam: NORMAL INSPECTION, NORMOCEPHALIC - Eye Exam Eye Exam: Normal appearance Pupil Exam: NORMAL ACCOMODATION - ENT Exam ENT Exam: Mucous Membranes Moist - Neck Exam Neck Exam: Full ROM, Normal Inspection - Respiratory Exam Respiratory Exam: Decreased Breath Sounds, Clear to Ausculation Bilateral, NORMAL BREATHING PATTERN - Cardiovascular Exam Cardiovascular Exam: +S1, +S2 Additional comments: right chest port - GI/Abdominal Exam GI & Abdominal Exam: Soft, Normal Bowel Sounds - Neurological Exam Neurological Exam: Alert, Awake, Oriented x3 - Psychiatric Exam Psychiatric exam: Depressed, Normal Affect - Skin Skin Exam: Dry, Normal Color, Warm Assessment and Plan - Assessment and Plan (Free Text) Assessment: A 63 year old female who came in to the ER back pain due to fall. Admitted for dehydration.She has not been eating or drinking for the past 5 days prior to admission. 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 Cardiac consult was called to evaluate tachycardia. MUGA scan done on 02/18/18 showed LVEF of 35% moderate LV dysfunction and diffuse hypokinesis. Echo done on 07/29/18 and showed LVEF of 55%,moderately dilated RV, mild AR/MR, moderate TR, RVSP 57mmHg. Dehydration, on IV hydration, On Propanolol for tachycardia,controlled. Continue IV antibiotics per ID (pneumonia). Pulmonary and Oncology on consult. Had episode of fall. CT of head done-no bleeding. Fall precaution. Physical therapy.Seen by Psychiatry. Discharge planning. Plan: No distress Fall precaution Heart rate controlled Blood pressure stable Cardiac status stable No further cardiac work up as this point Continue IV antibiotics per ID Solumedrol 30 mg BID, Propanolol 10 mg TID Continue current treatment Continue current medications Pain management Physical therapy Nutritional support Discharge planning Will follow up Plan and treatment discussed with Dr. Mathews
[2018-10-01] MEDS: Levalbuterol 0.63 MG/3 ML Inhal Soln UD IH SCH ×3 (07:49→19:30)
[2018-10-01 09:14] LABS: EOS # 0.1 (0.0-0.7); EOS % 0.3 % (1.5-5.0); HEMOGLOBIN 10.4 g/dL (12.0-16.0); LYMPH # 0.8 (1.2-3.4); LYMPH % 5.1 % (22.0-35.0); MEAN CELL VOLUME 93.3 fl (80.0-105.0); MEAN CORPUSCULAR HEMOGLOBIN 27.8 pg (25.0-35.0); MEAN CORPUSCULAR HGB CONC 29.8 g/dl (31.0-37.0); MEAN PLATELET VOLUME 8.7 fl (7.0-11.0); MONO # 0.7 (0.1-0.6); MONO % 4.7 % (1.0-6.0); RBC 3.74 10^6/uL (3.5-6.1); RED CELL DISTRIBUTION WIDTH 17.5 % (11.5-14.5)
[2018-10-01 09:24] LABS: WHITE BLOOD COUNT 14.9 10^3/uL (4.5-11.0)
[2018-10-01 09:39] LABS: ALBUMIN 2.8 g/dL (3.0-4.8); ALT/SGPT 11 U/L (7-56); AST/SGOT 23 U/L (14-36); BLOOD UREA NITROGEN 13 mg/dL (7-21); GFR NON-AFRICAN AMERICAN > 60
[2018-10-01] MEDS: MethylPREDNISolone 40 mg Vial IVP SCH (09:56)
[2018-10-01] MEDS: Lidocaine 5% Patch TD SCH (09:56)
[2018-10-01] MEDS: POLYETHYLENE GLYCOL 3350 17 GM/Dose PACKET PO SCH ×2 (09:56→17:41)
[2018-10-01] MEDS: Potassium & Sodium Phosphate PO SCH (09:56)
[2018-10-01] MEDS: Meropenem IV 1 gm in NS 1 GM/50 ML BAG IVPB SCH ×2 (09:56→21:43)
[2018-10-01] MEDS ORDERED: Potassium Phosphate 15 MMOLE in Sodium Chloride 0.9% 250 ML IVPB ONE (09:59)
[2018-10-01] MEDS ORDERED: Magnesium Sulfate 2 gm/50 ml 2 GM/50 ML BAG IVPB ONE (09:59)
--- NOTE | 2018-10-01 10:00 | PN ---
DATE: 10/01/2018 SUBJECTIVE: She is comfortable in bed. Currently not in acute distress. She said she had a restless night. I talked to the 1:1 sitter. She also reported that she was uneasy in the bed. She is currently on morphine BRAID FOLDER. She is complaining of right-sided pain on the back. X-ray of lumbar and thoracic spine were unremarkable. No fracture dislocation noted. She fell two days ago. It was a mechanical fall. No bowel movement for past few days. Currently, on oxygen by nasal cannula. No fever. No cough with expectoration. REVIEW OF SYSTEMS: As per HPI. A 12-point review of systems reviewed and negative. PHYSICAL EXAMINATION: GENERAL: Comfortable in bed. Oxygen by nasal cannula. VITAL SIGNS: Heart rate is 92 per minute. Blood pressure 100/67, respiratory rate 18 per minute, oxygen by nasal cannula. Temperature 97.3. HEENT: Pallor positive. NECK: No lymphadenopathy. CHEST: Air entry decreased on the left side. No rhonchi. No crepitations. CARDIOVASCULAR: S1 and S2, normal. No murmur. No gallop. ABDOMEN: Soft, nontender. No hepatosplenomegaly. EXTREMITIES: No edema. NEUROLOGIC: Alert and oriented x3. No focal sensory or motor deficit. SKIN: No petechiae. No rash. LABORATORY DATA: Labs pending from today. Yesterday from 09/30/2018, white count 20,000, hemoglobin 10.4, hematocrit 34.6, platelets 212. Sodium 135, potassium 4.1, creatinine 1.7. MEDICATIONS: Tylenol 650 every 6 hours p.r.n., Xanax 0.25 mg p.o. every 4 hours p.r.n., Pepcid 20 mg IV daily, heparin 5000 every 12 hours, ipratropium, Xopenex t.i.d., lidocaine patch, meropenem, morphine BRAID FOLDER, MiraLax 17 g p.o. b.i.d., Neutra-Phos 1 packet daily, propranolol 10 mg p.o. t.i.d. ASSESSMENT AND PLAN: 1. Stage IV lung cancer, progressive disease status post one dose of immune treatment, Opdivo. That was few weeks ago. She wants to continue treatment if she can once her pain improves. She fully understands the poor prognosis and progressive disease. 2. Pain, currently on morphine patient-controlled analgesia. She is on Lidoderm patch which did not help. She complains of pain all over. On further asking, she is pinpointing now to right side of the back. She has a lot of anxiety. During that anxiety episode, she complains of pain all over her body. She is sedated occasionally on morphine patient-controlled analgesia. She saying her sleep is disturbed because she sleeps during the daytime and in the nighttime she cannot sleep. We will continue morphine patient-controlled analgesia at the current dose. Pain management consult requested with Dr. Wilkerson. Spoke to him. He will evaluate her today. X-ray of lumbosacral spine unremarkable. X-ray of thoracic spine unremarkable. 3. Renal function is improved, now normal. 4. Hematology, blood counts, hemoglobin and hematocrit stable. Leukocytosis, likely reactive in nature secondary to IV steroids. 6. Pulmonary hypertension, chronic obstructive pulmonary disease exacerbation, left-sided pneumonia and decrease on chest x-ray. Dr. Hector following. Continue bronchodilators and intravenous steroid. Will try to wean steroids. Central nervous system, she has normal insight, normal judgment. No sensory or motor deficit. 7. Bony metastasis, status post intravenous Zometa. 8. Continue deep vein thrombosis prophylaxis with heparin 5000 twice a day. Ms. Miguel Quinn told me that she wants to go home today. She communicated that all she needs is a hospital bed. Her brother, Brandon, will be her caregiver and he will be at home 24 x 7 with her. I advised her that we have to control the pain. Once she is on oral pain regimen, we will discharge her. Consultation requested for palliative services, Ms. Bills. Discussed with her. We need a health care proxy for documentation. Communicated to staff nurse regarding home requirements. She is declining home care services right now. She is declining hospice for now. Discussed with nursing staff. Christine Wood MD 3pm : received called from Staff .Nurse about increase in pain. advised to increase basal rate of morphine to 1.5 mg/hr. Continue same bolus rate. Discussed with Dr. Wilkerson . He will evaluate her this afternoon. MTDD
--- NOTE | 2018-10-01 13:34 | CP.PCM.PN ---
Subjective - Date & Time of Evaluation Date of Evaluation: 10/01/18 Time of Evaluation: 10:00 - Subjective Subjective: The patient is alert, oriented. Complains of diffuse persistent pain Objective - Vital Signs/Intake and Output Vital Signs (last 24 hours): Temp Pulse Resp BP Pulse Ox 97.3 F L 18 L 18 100/67 100 09/30/18 18:00 10/01/18 06:00 09/30/18 22:00 09/30/18 19:13 09/30/18 16:21 Intake and Output: 10/01/18 10/01/18 06:59 18:59 Intake Total 1170 1060 Output Total 3200 24 Balance -2029 1036 - Medications Medications: Current Medications Acetaminophen (Tylenol 325mg Tab) 650 mg PO Q6H PRN PRN Reason: Pain, Mild (1-3) Last Admin: 09/28/18 12:30 Dose: 650 mg Alprazolam (Xanax) 0.25 mg PO Q4 PRN; Protocol PRN Reason: Anxiety Last Admin: 10/01/18 12:01 Dose: 0.25 mg Famotidine (Pepcid) 20 mg IVP DAILY [facility] Last Admin: 10/01/18 09:57 Dose: 20 mg Heparin Sodium (Porcine) (Heparin) 5,000 units SC Q12 [facility]; Protocol Last Admin: 10/01/18 09:57 Dose: 5,000 units Meropenem (Merrem Iv 1 Gm Premix) 1 gm in 50 mls @ 100 mls/hr IVPB Q12 [facility]; Protocol Last Admin: 10/01/18 09:56 Dose: 100 mls/hr Morphine Sulfate (Morphine Auto Air Conditioning Apprentice 1 Mg/Ml) 30 mls @ 0 mls/hr IV PRN PRN; Protocol PRN Reason: CONTACT LENS FITTER PER MD ORDER Last Admin: 09/30/18 23:44 Dose: 1 mg/hr, 1 mls/hr Potassium Phosphate 15 mmole/ (Sodium Chloride) 255 mls @ 42.5 mls/hr IVPB ONCE ONE Stop: 10/01/18 15:58 Last Admin: 10/01/18 11:59 Dose: 42.5 mls/hr Ipratropium [place] (Atrovent) 0.5 mg IH [id number] [facility] Last Admin: 10/01/18 13:22 Dose: 0.5 mg Levalbuterol HCl (Xopenex) 0.63 mg IH TIDRESP [facility] Last Admin: 10/01/18 13:22 Dose: 0.63 mg Lidocaine (Lidoderm) 1 ea TD DAILY [facility] Last Admin: 10/01/18 09:56 Dose: 1 ea Methylprednisolone (Solu-Medrol) 20 mg IVP Q12 [facility] Last Admin: 10/01/18 09:56 Dose: 20 mg Polyethylene Glycol (Miralax) 17 gm PO BID [facility] Last Admin: 10/01/18 09:56 Dose: 17 gm Potassium Phos/Sodium Phos (Neutra-Phos) 1 pkt PO DAILY [facility] Last Admin: 10/01/18 09:56 Dose: 1 pkt Propranolol HCl (Inderal) 10 mg PO TID [facility] Last Admin: 10/01/18 09:55 Dose: 10 mg - Labs Labs: 10/01/18 09:00 10/01/18 09:00 - Constitutional Appears: Cachectic, Chronically Ill - Eye Exam Eye Exam: Normal appearance, PERRL - ENT Exam ENT Exam: Mucous Membranes Moist - Respiratory Exam Respiratory Exam: Decreased Breath Sounds, NORMAL BREATHING PATTERN - Cardiovascular Exam Cardiovascular Exam: REGULAR RHYTHM, +S1, +S2 - GI/Abdominal Exam GI & Abdominal Exam: Soft, Normal Bowel Sounds - Extremities Exam Extremities Exam: Normal Capillary Refill - Neurological Exam Neurological Exam: Alert - Skin Skin Exam: Dry, Pallor Assessment and Plan - Assessment and Plan (Free Text) Assessment: This is a 63 year old female with history of metastatic NSCL cancer, COPD, left pleural effusions who is admitted with intractable pain. Dehydration,fecal impaction,leukocytosis and hypercalcemia have since resolved Abhi RAMIREZ and I met with Ms. Pablo. She is alert and oriented. She rates her pain as level of 10, movement exacerbates it, especially in the rib cage area. We had a long discussion regarding goals of care and advance care planning. Elsa is aware of her diagnosis and prognosis. She understands that her illness is terminal. She wishes to continue treatment for as long as she is able to do so. It was explained that the medical team had concerns about her ability to care for herself at home. She stated that her brother Brandan is going to be staying with her and that he will assist her with ADL's and household needs. Ms South spoke with Brandan via phone and he confirmed this plan. We next spoke about advance care planning. The patient is aware of the benefits and burdens of CPR/intubation. She states that she is willing to be fully resuscitated, but stipulated if her condition is irreversible she does not want to continue life support. She also does not want intermediate frame tender nutrition. She indicated that she wants her brother Brandan and her sister in law, Liss Arias to be her medical POA's. A POLST form was completed and signed by the patient. The patient was also encouraged to put her financial needs in order and to draw up legal docum ent that would specify provisions for the care of her son once she passed. The patient stated that her friend Lisa will assist with this and that her sister in law Liss will become her sons guardian at that point in time. Time spent with the patient in goals of care and advance care planning, 50 minutes Plan: Goals of care and advance care planning POLST form competed Pain management: Would increase Morphine continuos infusion 2 mg /hr, continue CONTACT LENS FITTER dosing for breakthrough as ordered Continue bowel regimen, Mirilax Dietary counseling/continue supplements PT/OT
[2018-10-01] MEDS ORDERED: Morphine 2 mg/ml ISec IVP ONE (14:35)
[2018-10-01] MEDS ORDERED: Morphine PCA 1 mg/ml (30ml) 30 ML IV PRN (14:37)
[2018-10-01] MEDS ORDERED: HYDROMORPHONE 0.2 MG/ML IV PRN ×2 (18:25→18:54)
[2018-10-01] MEDS: HYDROmorphone 0.2 mg/ml (30ml) 30 ML IV PRN (19:13)
--- NOTE | 2018-10-01 20:12 | CP.PCM.PN ---
<Fabby Childers - Last Filed: 10/01/18 20:18> Subjective - Date & Time of Evaluation Date of Evaluation: 10/01/18 Time of Evaluation: 08:00 - Subjective Subjective: Progress Note for Dr. Miranda Service Patient was seen and examined at bedside. Patient has complaints of constipation and pain that worsens with position shifting. Patient has poor appetite. Patient denied fever, chills, shortness of breath, chest pains, nausea, vomiting, or diarrhea. Objective - Vital Signs/Intake and Output Vital Signs (last 24 hours): Temp Pulse Resp BP Pulse Ox 98.3 F 101 H 18 106/72 100 10/01/18 17:29 10/01/18 17:29 10/01/18 17:29 10/01/18 17:29 10/01/18 17:29 Intake and Output: 10/01/18 10/02/18 18:59 06:59 Intake Total 1060 760 Output Total 24 1200 Balance 1036 -440 - Medications Medications: Current Medications Acetaminophen (Tylenol 325mg Tab) 650 mg PO Q6H PRN PRN Reason: Pain, Mild (1-3) Last Admin: 09/28/18 12:30 Dose: 650 mg Alprazolam (Xanax) 0.25 mg PO Q4 PRN; Protocol PRN Reason: Anxiety Last Admin: 10/01/18 12:01 Dose: 0.25 mg Alprazolam (Xanax) 0.25 mg PO Q6 [facility]; Protocol Stop: 10/08/18 18:01 Last Admin: 10/01/18 17:27 Dose: 0.25 mg Famotidine (Pepcid) 20 mg IVP DAILY [facility] Last Admin: 10/01/18 09:57 Dose: 20 mg Heparin Sodium (Porcine) (Heparin) 5,000 units SC Q12 [facility]; Protocol Last Admin: 10/01/18 09:57 Dose: 5,000 units Meropenem (Merrem Iv 1 Gm Premix) 1 gm in 50 mls @ 100 mls/hr IVPB Q12 [facility]; Protocol Last Admin: 10/01/18 09:56 Dose: 100 mls/hr Hydromorphone HCl (Dilaudid 0.2 Mg/Ml Tree Farmer) 30 mls @ 0 mls/hr IV PRN PRN; Protocol PRN Reason: LEAD FABRICATOR PER MD ORDER Last Admin: 10/01/18 19:13 Dose: 2.5 mls/hr Ipratropium [place] (Atrovent) 0.5 mg IH [id number] [facility] Last Admin: 10/01/18 19:31 Dose: 0.5 mg Levalbuterol HCl (Xopenex) 0.63 mg IH TIDRESP [facility] Last Admin: 10/01/18 19:30 Dose: 0.63 mg Lidocaine (Lidoderm) 1 ea TD DAILY [facility] Last Admin: 10/01/18 09:56 Dose: 1 ea Methylprednisolone (Solu-Medrol) 20 mg IVP Q12 [facility] Last Admin: 10/01/18 09:56 Dose: 20 mg Polyethylene Glycol (Miralax) 17 gm PO BID [facility] Last Admin: 10/01/18 17:41 Dose: Not Given Potassium Phos/Sodium Phos (Neutra-Phos) 1 pkt PO DAILY [facility] Last Admin: 10/01/18 09:56 Dose: 1 pkt Pregabalin (Lyrica) 50 mg PO BID [facility] Last Admin: 10/01/18 18:44 Dose: 50 mg Propranolol HCl (Inderal) 10 mg PO TID [facility] Last Admin: 10/01/18 17:42 Dose: Not Given Tizanidine HCl (Zanaflex) 4 mg PO HS [facility] - Labs Labs: 10/01/18 09:00 10/01/18 09:00 - Constitutional Appears: Older Than Stated Age, Cachectic, Chronically Ill - Head Exam Head Exam: ATRAUMATIC, NORMAL INSPECTION, NORMOCEPHALIC - Eye Exam Eye Exam: EOMI, Normal appearance, PERRL Pupil Exam: NORMAL ACCOMODATION, PERRL - ENT Exam ENT Exam: Mucous Membranes Dry - Neck Exam Neck Exam: Full ROM, Normal Inspection. absent: Lymphadenopathy - Respiratory Exam Respiratory Exam: Decreased Breath Sounds, NORMAL BREATHING PATTERN - Cardiovascular Exam Cardiovascular Exam: RRR, +S1, +S2 - GI/Abdominal Exam GI & Abdominal Exam: Soft, Hypoactive Bowel Sounds. absent: Tenderness Assessment and Plan - Assessment and Plan (Free Text) Assessment: 1. Sepsis with hcap downtrending leukocytosis 2. 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 End -stage COPD 4. FAMILIA in setting of CKD 3 -resovled 3. Anemia 4. Hypercalcemia 5. Pulmonary HTN 6. ADHD 7. Anxiety 8. Constipation 9 Hypomagnesemia 10. Hypophosphatemia plan: Patient is sitting comfortably. She is on abx for her HCAP, merrem as per ID, with improving leukocytosis. Patient followed by Dr. Wood for NSC lung ca with tyson metastasis. She had her first dose of Opdivo 3 weeks ago, Dr. Wood following. Echo done on 07/29/18 and showed LVEF of 55%,moderately dilated RV, mild AR/MR, moderate TR, RVSP 57mmHg. FAMILIA resolved, CKD 3 stable. Magnesium supplemented as well as phosphorous, will fu with labwork and supplement as needed. Patient is on propranolol 10 TID stable HR now. Will continue spiriva, tapering solumedrol, ipatropium and xopenex for COPD. Patient is on lactulose and miralax for constipation. Patient has poor nutritional status. Renal diet. DVT ppx with heparin, and pain control regimen escalated to hydromorphone LEAD FABRICATOR, lyrica, and zanaflex as per Pain management, Dr. Wilkerson.. Xanax dosage adjusted to 0.25mg as per Psych, Dr Ariza. Palliative care, Ernestina Bills met with patient and family to discuss goals of care. Seen reviewed and discussed with Dr. Miranda <Alejandro Miranda - Last Filed: 10/01/18 20:49> Objective - Vital Signs/Intake and Output Vital Signs (last 24 hours): Temp Pulse Resp BP Pulse Ox 98.3 F 101 H 18 106/72 100 10/01/18 17:29 10/01/18 17:29 10/01/18 17:29 10/01/18 17:29 10/01/18 17:29 Intake and Output: 10/01/18 10/02/18 18:59 06:59 Intake Total 1060 760 Output Total 24 1200 Balance 1036 -440 - Medications Medications: Current Medications Acetaminophen (Tylenol 325mg Tab) 650 mg PO Q6H PRN PRN Reason: Pain, Mild (1-3) Last Admin: 09/28/18 12:30 Dose: 650 mg Alprazolam (Xanax) 0.25 mg PO Q4 PRN; Protocol PRN Reason: Anxiety Last Admin: 10/01/18 12:01 Dose: 0.25 mg Alprazolam (Xanax) 0.25 mg PO Q6 [facility]; Protocol Stop: 10/08/18 18:01 Last Admin: 10/01/18 17:27 Dose: 0.25 mg Famotidine (Pepcid) 20 mg IVP DAILY [facility] Last Admin: 10/01/18 09:57 Dose: 20 mg Heparin Sodium (Porcine) (Heparin) 5,000 units SC Q12 [facility]; Protocol Last Admin: 10/01/18 09:57 Dose: 5,000 units Meropenem (Merrem Iv 1 Gm Premix) 1 gm in 50 mls @ 100 mls/hr IVPB Q12 [facility]; Protocol Last Admin: 10/01/18 09:56 Dose: 100 mls/hr Hydromorphone HCl (Dilaudid 0.2 Mg/Ml Tree Farmer) 30 mls @ 0 mls/hr IV PRN PRN; Protocol PRN Reason: LEAD FABRICATOR PER MD ORDER Last Admin: 10/01/18 19:13 Dose: 2.5 mls/hr Ipratropium [place] (Atrovent) 0.5 mg IH [id number] [facility] Last Admin: 10/01/18 19:31 Dose: 0.5 mg Levalbuterol HCl (Xopenex) 0.63 mg IH TIDRESP [facility] Last Admin: 10/01/18 19:30 Dose: 0.63 mg Lidocaine (Lidoderm) 1 ea TD DAILY [facility] Last Admin: 10/01/18 09:56 Dose: 1 ea Polyethylene Glycol (Miralax) 17 gm PO BID [facility] Last Admin: 10/01/18 17:41 Dose: Not Given Potassium Phos/Sodium Phos (Neutra-Phos) 1 pkt PO DAILY [facility] Last Admin: 10/01/18 09:56 Dose: 1 pkt Pregabalin (Lyrica) 50 mg PO BID [facility] Last Admin: 10/01/18 18:44 Dose: 50 mg Propranolol HCl (Inderal) 10 mg PO TID [facility] Last Admin: 10/01/18 17:42 Dose: Not Given Tizanidine HCl (Zanaflex) 4 mg PO HS [facility] - Labs Labs: 10/01/18 09:00 10/01/18 09:00 Assessment and Plan - Assessment and Plan (Free Text) Assessment: Pt seen and examined by me. I have reviewed the note of the medical laboratory technician and I agree with it. I have discussed the assessment and plan with the resident. I have reviewed the medications and the last labs.
--- NOTE | 2018-10-01 22:46 | CON ---
DATE: 10/01/2018 CHIEF COMPLAINT: Neck pain and low back pain. HISTORY OF PRESENT ILLNESS: Ms. Quinn is a pleasant 63-year-old female who was diagnosed with stage IV lung cancer, squamous cell type. Patient is complaining of pain of her neck mostly on the left side that goes down her thoracic spine down to her lower back. Left side is much worse than the right side. Patient when asked about pain level, she stated 20/10. She is currently on morphine IT SALES REPRESENTATIVE pump and stated that it is not helping. Patient has been on chemotherapy for the past year. Recently, she received palliative radiation to the left lung for hemoptysis. She is currently on Opdivo, third line chemotherapy for progressive disease. After reviewing the consult as per patient's family, she slipped and fell. I reviewed x-rays of the lumbar spine, thoracic spine, and hip. It shows no fracture, but no occult fracture can be excluded for the pelvis. Lumbar spine and thoracic spine showed degenerative disc disease at multilevel, but no evidence of fracture. She denied any new weakness. She denied any bowel or bladder dysfunction. PAST MEDICAL HISTORY: COPD, pulmonary hypertension, sinus tachycardia, chronic back pain. PAST SURGICAL HISTORY: Status post right adrenal biopsy, chest port placement. FAMILY HISTORY: Noncontributory. ALLERGIES: NO KNOWN DRUG ALLERGY. HOME MEDICATIONS: Metoprolol 50 mg p.o. b.i.d., Lasix 40 mg daily, morphine extended release 15 mg p.o. b.i.d. Adderall p.r.n., and oxycodone 10 mg every 6 hours. REVIEW OF SYSTEMS: A 14-point review of systems is negative except what is mentioned in the history of present illness. PHYSICAL EXAMINATION: GENERAL: Patient is sitting on the edge of the bed in moderate distress. VITAL SIGNS: Afebrile. Vital signs stable. CARDIOVASCULAR: S1 and S2 is normal. ABDOMEN: Soft, nontender, nondistended. NEUROMUSCULAR: There is diffuse muscle wasting. She is alert, awake, and oriented. She concentrates very well. Cranial nerves II to XII grossly intact. There is significant tenderness over the left cervical facet joint line, left cervical paraspinal, upper trapezius, and supraspinatus muscle. There is tenderness with tight tender trigger point over left thoracic paraspinal, lumbar paraspinal, and lumbar facet joint line. IMPRESSION: Severe pain secondary to stage IV lung cancer with myofascial pain including left cervical paraspinal, upper trapezius, supraspinatus, thoracolumbar paraspinal secondary to thoracic and lumbar spondylosis of facetogenic origin. RECOMMENDATIONS: 1. We will discontinue the morphine IT SALES REPRESENTATIVE pump and would replace it with Dilaudid IT SALES REPRESENTATIVE pump with 1 mg loading dose and 0.5 mg continuous with 0.5 mg IT SALES REPRESENTATIVE dose lockout time 20 mg. The regimen was discussed with Dr. Wood and the charge nurse. We will titrate based on the patient's response. If patient is drowsy on this dose, we will decrease the lockout time. We will actually increase the lockout time to 30 minutes. If the dose is not enough and she is still in pain, we can shorten the lockout time to 15 minutes. 2. We will start Lyrica at 50 mg p.o. b.i.d. and Zanaflex 4 mg at bedtime. 3. We will follow up with Dr. Wood and will titrate as needed. Jerel Wilkerson MD cc: Christine Wood MD
--- NOTE | 2018-10-01 23:57 | CP.PCM.PN ---
Subjective - Date & Time of Evaluation Date of Evaluation: 10/01/18 Time of Evaluation: 07:30 - Subjective Subjective: Patient has poor appetite and feels weak, no fevers. Objective - Vital Signs/Intake and Output Vital Signs (last 24 hours): Temp Pulse Resp BP Pulse Ox 98.1 F 87 17 98/62 L 100 09/29/18 19:45 09/29/18 19:45 09/29/18 19:45 09/29/18 19:45 09/29/18 16:52 - Medications Medications: Current Medications Acetaminophen (Tylenol 325mg Tab) 650 mg PO Q6H PRN PRN Reason: Pain, Mild (1-3) Last Admin: 09/28/18 12:30 Dose: 650 mg Alprazolam (Xanax) 0.5 mg PO Q6 [facility]; Protocol Famotidine (Pepcid) 20 mg PO HS [facility] Last Admin: 09/28/18 23:14 Dose: 20 mg Heparin Sodium (Porcine) (Heparin) 5,000 units SC Q12 [facility]; Protocol Last Admin: 09/29/18 09:33 Dose: 5,000 units Meropenem (Merrem Iv 1 Gm Premix) 1 gm in 50 mls @ 100 mls/hr IVPB Q12 [facility]; Protocol Last Admin: 09/29/18 09:34 Dose: 100 mls/hr Morphine Sulfate (Morphine Advisor To Command In Combat 1 Mg/Ml) 30 mls @ 0 mls/hr IV PRN PRN; Protocol PRN Reason: FIELD AGENT PER MD ORDER Last Admin: 09/29/18 10:44 Dose: 0.5 mg/hr, 0.5 mls/hr Sodium Chloride (Sodium Chloride 0.9%) 1,000 mls @ 60 mls/hr IV .[id number] [facility] Last Admin: 09/29/18 20:21 Dose: 60 mls/hr Ipratropium [place] (Atrovent) 0.5 mg IH [id number] [facility] Last Admin: 09/29/18 19:21 Dose: 0.5 mg Levalbuterol HCl (Xopenex) 0.63 mg IH TIDRESP [facility] Last Admin: 09/29/18 19:21 Dose: 0.63 mg Lidocaine (Lidoderm) 1 ea TD DAILY [facility] Last Admin: 09/29/18 09:35 Dose: Not Given Methylprednisolone (Solu-Medrol) 20 mg IVP Q12 [facility] Polyethylene Glycol (Miralax) 17 gm PO BID [facility] Last Admin: 09/29/18 17:11 Dose: 17 gm Propranolol HCl (Inderal) 10 mg PO TID [facility] Last Admin: 09/29/18 17:05 Dose: Not Given - Labs Labs: 09/29/18 09:44 09/29/18 09:44 - Constitutional Appears: Chronically Ill - Head Exam Head Exam: NORMAL INSPECTION - Respiratory Exam Respiratory Exam: Decreased Breath Sounds - Cardiovascular Exam Cardiovascular Exam: +S1, +S2 - GI/Abdominal Exam GI & Abdominal Exam: Soft. absent: Tenderness Assessment and Plan - Assessment and Plan (Free Text) Plan: Assessment sepsis due to obstructive pneumonitis lung cancer history of severe sepsis from methicillin-sensitive staph aureus bacteremia, probably port-related bacteremia, S/P port removal history of left sided HCAP history of fever and neutropenia bilateral lower extremity swelling, consider venous stasis acute on chronic renal failure S/P Sepsis due to left lower HCAP, probably post-obstructive pneumonitis in a patient with poorly-differentiated squamous cell lung CA with cavitary lesion extensive smoking history Plan S/P 8 days of Merrem overall prognosis is poor
--- NOTE | 2018-10-02 00:02 | PN ---
DATE: 10/01/2018 The patient was seen and examined. I do agree with the note of the emergency medical service coordinator. I was involved in the plan of care. The patient had acute kidney injury with CKD stage 3 that has improved. She has an elevated white cell count. The patient's family is supposed to come to the hospital and discussion will be had on end-of-life care and hospice. Palliative care has been involved. The patient is on propanolol. She is receiving Spiriva and Solu-Medrol for her COPD. She has endstage lung disease with nonsquamous cell carcinoma stage IV. The patient's hypercalcemia has improved. She is on lactulose and MiraLax for her constipation. The patient has anxiety and she does get Xanax. She has hypophosphatemia because of poor p.o. intake. She is going to continue with phosphorous replacement. Alejandro Miranda MD
[2018-10-02] MEDS: HYDROmorphone 0.2 mg/ml (30ml) 30 ML IV PRN ×3 (01:05→19:44)
[2018-10-02] MEDS: Ipratropium 0.02% Inhal Soln (0.5 mg/2.5 ml) UD IH SCH ×4 (01:41→19:51)
--- NOTE | 2018-10-02 01:51 | PN ---
DATE: 10/01/2018 PULMONARY PROGRESS NOTE REFERRING PHYSICIAN: Christine Wood MD SUBJECTIVE: She is lying in the bed. Head up at 45 degrees. She is on Dilaudid STRATEGIC DEBRIEFING OFFICER pump. Overall pain is better. No . Had a bowel movement this morning. No leg swelling. PHYSICAL EXAMINATION: GENERAL: In no acute distress. VITAL SIGNS: Temperature is 98, heart rate 101, respiratory rate is 18, blood pressure 106/72, and pulse ox 98%, 2 liter nasal cannula. HEENT: Moist mucous membranes. No ulcer or thrush noted. NECK: Supple. No JVD. LUNGS: Have fair airflow with few rhonchi. HEART: S1 and S2. ABDOMEN: Soft, nontender. No organomegaly. EXTREMITIES: No edema. NEUROLOGIC: Awake, alert, and follows simple commands. MEDICATIONS: She is on Atrovent inhaled every 6 hours. She is on Dilaudid IV STRATEGIC DEBRIEFING OFFICER pump, also getting heparin 5000 units subcu every 12 hours. She is on propranolol 10 mg three times a day, Lidoderm patch on affected area, Lyrica 50 mg twice a day, meropenem 1 g IV every 12 hours, MiraLax 17 g twice a day, also Neutra-Phos one pack daily, Pepcid 20 mg daily, Tylenol p.r.n. basis, Xanax 0.25 mg every 4 hours p.r.n. also Xanax 0.25 mg every 6 hours schedule, Xopenex inhaled every 8 hours, Zanaflex 4 mg at bedtime. LABORATORY DATA: Hemoglobin 10.4, hematocrit 34.9, WBC 14.9, platelet is 206. Sodium 138, potassium 3.9, chloride 102, bicarbonate 32, BUN 13, creatinine 0.5, glucose 84, calcium is 7, phosphorus 1.6, magnesium 1.6, AST 23, ALT 11, alk phos is 77, albumin is 2.8. Microbiology; blood culture have been negative. There is no growth. ASSESSMENT AND PLAN: Stage 4 lung cancer with progressive disease, obstructive lung disease, pulmonary hypertension, history of attention deficit syndrome, chronic renal insufficiency, left adrenal mass, chronic anemia. Pulmonary point of view, she is doing okay. She is under one-to-one supervision, continue bronchodilator, keep head at 45 degrees, pain management, stool softeners, gastric prophylaxis, sequential compression device to lower extremity. Overall poor prognosis. Thank you and we will follow with you. Nikita Hector MD
[2018-10-02] MEDS: Levalbuterol 0.63 MG/3 ML Inhal Soln UD IH SCH ×3 (07:50→19:52)
[2018-10-02 08:45] LABS: BASO # 0.01 K/mm3 (0.0-2.0); BASO % 0.1 % (0.0-3.0); EOS # 0.2 (0.0-0.7); EOS % 1.2 % (1.5-5.0); HEMOGLOBIN 11.8 g/dL (12.0-16.0); LYMPH # 1.6 (1.2-3.4); LYMPH % 8.6 % (22.0-35.0); MEAN CELL VOLUME 94.1 fl (80.0-105.0); MEAN CORPUSCULAR HEMOGLOBIN 28.8 pg (25.0-35.0); MEAN CORPUSCULAR HGB CONC 30.6 g/dl (31.0-37.0); MEAN PLATELET VOLUME 8.5 fl (7.0-11.0); MONO # 0.7 (0.1-0.6); MONO % 3.7 % (1.0-6.0); RBC 4.1 10^6/uL (3.5-6.1); RED CELL DISTRIBUTION WIDTH 17.9 % (11.5-14.5)
[2018-10-02 08:48] LABS: WHITE BLOOD COUNT 18.2 10^3/uL (4.5-11.0)
[2018-10-02 09:01] LABS: ALBUMIN 3.4 g/dL (3.0-4.8); ALT/SGPT 6 U/L (7-56); AST/SGOT 26 U/L (14-36); BLOOD UREA NITROGEN 12 mg/dL (7-21); CALCIUM 7.8 mg/dL (8.4-10.5); GFR NON-AFRICAN AMERICAN > 60
[2018-10-02] MEDS: Lidocaine 5% Patch TD SCH (10:08)
[2018-10-02] MEDS: POLYETHYLENE GLYCOL 3350 17 GM/Dose PACKET PO SCH ×3 (10:08→18:25)
[2018-10-02] MEDS: Potassium & Sodium Phosphate PO SCH ×3 (10:09→18:25)
--- NOTE | 2018-10-02 11:05 | CP.PCM.PCO ---
Addendum Addendum: 10/02/18 11:03 from psychiatric standpoint no acute issues pt tolerates meds well no SI/HI no psychosis family involved pt pose no imminent danger to self or others, psychiatric team will sign off
--- NOTE | 2018-10-02 11:10 | PN ---
DATE: 10/02/2018 REASON FOR CONSULTATION AND FOLLOWUP: Tachycardia, palpitation, admitted with dehydration lung cancer, cardiac evaluation followup. SUBJECTIVE: The patient denies any chest pain or shortness of breath or any palpitation, still confused one-to-one. OBJECTIVE: GENERAL: Not in apparent distress, feels better and no complain of further palpitation. VITAL SIGNS: Temperature afebrile, heart rate 92 and blood pressure 100/67. HEENT: PERRLA. Extraocular muscles intact. NECK: Supple. No carotid bruit or thyromegaly. CHEST: Clear to auscultation. HEART: S1 and S2, regular. ABDOMEN: Soft. EXTREMITIES: Clubbing and cyanosis negative. LABORATORY DATA: WBC 14.9, hemoglobin 10.4, hematocrit 34.9 and platelet count 206. Chemistry shows sodium 130, potassium 3.9, chloride 102, carbon dioxide 32, anion gap and creatinine is 0.5, total protein 5.6, albumin 2.8, albumin-globulin ratio 1. IMPRESSION: A 63-year-old female with past medical history significant for stage IV lung cancer on chemotherapy recently radiation therapy, was on beta-codi, metoprolol, heart is not controlled admitted with dehydration, heart rate 120, started on propranolol 10 mg p.o. three times a day improved. Last MUGA scan did in 02/18/2018 shows ejection fraction 35% moderate left ventricular dysfunction and diffuse hypokinesis. Last echo repeated 07/29/2018 is significantly improved in left ventricular function ejection 55% moderate dilated right ventricular mild aortic regurgitation, [id number] regurgitation, moderate tricuspid regurgitation, right ventricular systolic pressure 57. RECOMMENDATION: Continue pneumonia rehab therapy, continue propranolol 10 mg p.o. three times a day. We will sign off and to follow p.r.n. Thank you Dr. Wood for providing us the opportunity in taking care of the patient, Elsa Quinn. Nikita Mathews MD
--- NOTE | 2018-10-02 11:55 | CP.PCM.PCO ---
Physician Communication Note - Physician Communication Note Physician Communication Note: discussed with Oseas Medeiros lyrica as per his recommendations
--- NOTE | 2018-10-02 12:22 | CP.PCM.PN ---
Subjective - Date & Time of Evaluation Date of Evaluation: 10/02/18 Time of Evaluation: 09:05 - Subjective Subjective: Patient is still weak-looking but not in distress. Objective - Vital Signs/Intake and Output Vital Signs (last 24 hours): Temp Pulse Resp BP Pulse Ox 98.3 F 101 H 18 106/72 100 10/01/18 17:29 10/01/18 17:29 10/01/18 17:29 10/01/18 17:29 10/01/18 17:29 Intake and Output: 10/01/18 10/02/18 18:59 06:59 Intake Total 1060 760 Output Total 24 1200 Balance 1036 -440 - Medications Medications: Current Medications Acetaminophen (Tylenol 325mg Tab) 650 mg PO Q6H PRN PRN Reason: Pain, Mild (1-3) Last Admin: 09/28/18 12:30 Dose: 650 mg Alprazolam (Xanax) 0.25 mg PO Q4 PRN; Protocol PRN Reason: Anxiety Last Admin: 10/01/18 12:01 Dose: 0.25 mg Alprazolam (Xanax) 0.25 mg PO Q6 LUZ MARINA; Protocol Stop: 10/08/18 18:01 Last Admin: 10/01/18 23:56 Dose: 0.25 mg Famotidine (Pepcid) 20 mg IVP DAILY LUZ MARINA Last Admin: 10/01/18 09:57 Dose: 20 mg Heparin Sodium (Porcine) (Heparin) 5,000 units SC Q12 LUZ MARINA; Protocol Last Admin: 10/01/18 21:42 Dose: 5,000 units Hydromorphone HCl (Dilaudid 0.2 Mg/Ml Line Worker) 30 mls @ 0 mls/hr IV PRN PRN; Protocol PRN Reason: MANAGER CREDIT COLLECTIONS PER MD ORDER Last Admin: 10/01/18 19:13 Dose: 2.5 mls/hr Ipratropium Ponce (Atrovent) 0.5 mg IH [id number] LUZ MARINA Last Admin: 10/01/18 19:31 Dose: 0.5 mg Levalbuterol HCl (Xopenex) 0.63 mg IH TIDRESP LUZ MARINA Last Admin: 10/01/18 19:30 Dose: 0.63 mg Lidocaine (Lidoderm) 1 ea TD DAILY LUZ MARINA Last Admin: 04/18/19 09:56 Dose: 1 ea Polyethylene Glycol (Miralax) 17 gm PO BID [facility] Last Admin: 10/01/18 17:41 Dose: Not Given Potassium Phos/Sodium Phos (Neutra-Phos) 1 pkt PO DAILY [facility] Last Admin: 10/01/18 09:56 Dose: 1 pkt Pregabalin (Lyrica) 50 mg PO BID [facility] Last Admin: 10/01/18 18:44 Dose: 50 mg Propranolol HCl (Inderal) 10 mg PO TID [facility] Last Admin: 10/01/18 17:42 Dose: Not Given Tizanidine HCl (Zanaflex) 4 mg PO HS [facility] Last Admin: 10/01/18 21:42 Dose: 4 mg - Labs Labs: 10/01/18 09:00 10/01/18 09:00 - Constitutional Appears: Chronically Ill - Head Exam Head Exam: NORMAL INSPECTION - Respiratory Exam Respiratory Exam: Decreased Breath Sounds - Cardiovascular Exam Cardiovascular Exam: +S1, +S2 - GI/Abdominal Exam GI & Abdominal Exam: Soft. 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
--- NOTE | 2018-10-02 12:22 | CP.PCM.PN ---
<Fabby Childers - Last Filed: 10/02/18 12:19> Subjective - Date & Time of Evaluation Date of Evaluation: 10/02/18 Time of Evaluation: 09:00 - Subjective Subjective: Progress Note for Dr. Miranda Nephrology Service Patient was seen and examined at bedside. Patient states her pain is much better controlled at this time. Patient denied fever, chills, shortness of breath, chest pains, nausea, vomiting, or diarrhea. Objective - Vital Signs/Intake and Output Vital Signs (last 24 hours): Temp Pulse Resp BP Pulse Ox 98.5 F 65 18 104/73 96 10/02/18 06:00 10/02/18 10:09 10/02/18 06:00 10/02/18 10:09 10/02/18 06:00 Intake and Output: 10/02/18 10/02/18 06:59 18:59 Intake Total 890 30 Output Total 1200 Balance -310 30 - Medications Medications: Current Medications Acetaminophen (Tylenol 325mg Tab) 650 mg PO Q6H PRN PRN Reason: Pain, Mild (1-3) Last Admin: 09/28/18 12:30 Dose: 650 mg Alprazolam (Xanax) 0.25 mg PO Q4 PRN; Protocol PRN Reason: Anxiety Last Admin: 10/01/18 12:01 Dose: 0.25 mg Alprazolam (Xanax) 0.25 mg PO Q6 LUZ MARINA; Protocol Stop: 10/08/18 18:01 Last Admin: 10/02/18 12:17 Dose: 0.25 mg Famotidine (Pepcid) 20 mg PO DAILY [facility] Last Admin: 10/02/18 10:09 Dose: 20 mg Heparin Sodium (Porcine) (Heparin) 5,000 units SC Q12 LUZ MARINA; Protocol Last Admin: 10/02/18 10:08 Dose: 5,000 units Hydromorphone HCl (Dilaudid 0.2 Mg/Ml Hand Meat Salter) 30 mls @ 0 mls/hr IV PRN PRN; Protocol PRN Reason: SPINDLE PLUMBER PER MD ORDER Last Admin: 10/02/18 10:20 Dose: 2.5 mls/hr Ipratropium [place] (Atrovent) 0.5 mg IH [id number] [facility] Last Admin: 10/02/18 07:50 Dose: Not Given Levalbuterol HCl (Xopenex) 0.63 mg IH TIDRESP [facility] Last Admin: 10/02/18 07:50 Dose: Not Given Lidocaine (Lidoderm) 1 ea TD DAILY [facility] Last Admin: 10/02/18 10:08 Dose: 1 ea Polyethylene Glycol (Miralax) 17 gm PO BID [facility] Last Admin: 10/02/18 10:08 Dose: 17 gm Potassium Phos/Sodium Phos (Neutra-Phos) 2 pkt PO BID [facility] Last Admin: 10/02/18 10:09 Dose: 2 pkt Pregabalin (Lyrica) 50 mg PO BID [facility] Last Admin: 10/02/18 10:09 Dose: 50 mg Propranolol HCl (Inderal) 10 mg PO TID [facility] Last Admin: 10/02/18 10:09 Dose: 10 mg Tizanidine HCl (Zanaflex) 4 mg PO HS [facility] Last Admin: 10/01/18 21:42 Dose: 4 mg - Labs Labs: 10/02/18 08:30 10/02/18 08:30 - Constitutional Appears: Cachectic, Chronically Ill - Head Exam Head Exam: ATRAUMATIC, NORMAL INSPECTION, NORMOCEPHALIC - Eye Exam Eye Exam: EOMI, Normal appearance, PERRL Pupil Exam: NORMAL ACCOMODATION, PERRL - ENT Exam ENT Exam: Mucous Membranes Moist, Normal Exam - Neck Exam Neck Exam: Full ROM, Normal Inspection. absent: Lymphadenopathy - Respiratory Exam Respiratory Exam: Clear to Ausculation Bilateral, NORMAL BREATHING PATTERN - Cardiovascular Exam Cardiovascular Exam: REGULAR RHYTHM, +S1, +S2 - GI/Abdominal Exam GI & Abdominal Exam: Soft, Normal Bowel Sounds. absent: Tenderness - Neurological Exam Neurological Exam: Alert, Awake, CN II-XII Intact, Oriented x3 - Psychiatric Exam Psychiatric exam: Anxious - Skin Skin Exam: Dry, Intact, Normal Color, Warm Assessment and Plan - Assessment and Plan (Free Text) Assessment: 1. Sepsis with hcap downtrending leukocytosis 2. 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 End -stage COPD 4. FAMILIA in setting of CKD 3 -resovled 3. Anemia 4. Hypercalcemia 5. Pulmonary HTN 6. ADHD 7. Anxiety 8. Constipation 9 Hypomagnesemia 10. Hypophosphatemia plan: Patient is sitting comfortably. She is on abx for her HCAP, merrem as per ID. Patient followed by Dr. Wood for NSC lung ca with tyson metastasis. She had her first dose of Opdivo 3 weeks ago, Dr. Wood following. Echo done on 07/29/18 and showed LVEF of 55%,moderately dilated RV, mild AR/MR, moderate TR, RVSP 57mmHg. FAMILIA resolved, CKD 3 stable. Magnesium supplemented as well as phosphorous, will fu with labwork and supplement as needed. Patient is on propranolol 10 TID stable HR now. Will continue spiriva, tapering solumedrol, ipatropium and xopenex for COPD. Patient is on lactulose and miralax for constipation. Patient has poor nutritional status. Renal diet. DVT ppx with heparin, and pain control regimen escalated to hydromorphone SPINDLE PLUMBER, lyrica, and zanaflex as per Pain management, Dr. Wilkerson.. Xanax dosage adjusted to 0.25mg as per Psych, Dr Ariza. Palliative care, Ernestina Bills met with patient and family to discuss goals of care. Seen reviewed and discussed with Dr. Miranda <Alejandro Miranda S - Last Filed: 10/02/18 15:32> Objective - Vital Signs/Intake and Output Vital Signs (last 24 hours): Temp Pulse Resp BP Pulse Ox 98.5 F 65 18 80/62 L 96 10/02/18 06:00 10/02/18 10:09 10/02/18 06:00 10/02/18 15:26 10/02/18 06:00 Intake and Output: 10/02/18 10/02/18 06:59 18:59 Intake Total 890 30 Output Total 1200 Balance -310 30 - Medications Medications: Current Medications Acetaminophen (Tylenol 325mg Tab) 650 mg PO Q6H PRN PRN Reason: Pain, Mild (1-3) Last Admin: 09/28/18 12:30 Dose: 650 mg Alprazolam (Xanax) 0.25 mg PO Q4 PRN; Protocol PRN Reason: Anxiety Last Admin: 10/01/18 12:01 Dose: 0.25 mg Alprazolam (Xanax) 0.25 mg PO Q6 LUZ MARINA; Protocol Stop: 10/08/18 18:01 Last Admin: 10/02/18 12:17 Dose: 0.25 mg Docusate Sodium (Colace) 100 mg PO BID [facility] Heparin Sodium (Porcine) (Heparin) 5,000 units SC Q12 [facility]; Protocol Last Admin: 10/02/18 10:08 Dose: 5,000 units Hydromorphone HCl (Dilaudid 0.2 Mg/Ml Hand Meat Salter) 30 mls @ 0 mls/hr IV PRN PRN; Protocol PRN Reason: SPINDLE PLUMBER PER MD ORDER Last Admin: 10/02/18 10:20 Dose: 2.5 mls/hr Ipratropium Henefer (Atrovent) 0.5 mg IH [id number] [facility] Last Admin: 10/02/18 13:06 Dose: Not Given Levalbuterol HCl (Xopenex) 0.63 mg IH TIDRESP [facility] Last Admin: 10/02/18 13:06 Dose: Not Given Lidocaine (Lidoderm) 1 ea TD DAILY [facility] Last Admin: 10/02/18 10:08 Dose: 1 ea Methylprednisolone (Solu-Medrol) 20 mg IVP Q8 [facility] Last Admin: 10/02/18 15:01 Dose: 20 mg Pantoprazole Sodium (Protonix Inj) 40 mg IVP DAILY [facility] Polyethylene Glycol (Miralax) 17 gm PO TID [facility] Potassium Phos/Sodium Phos (Neutra-Phos) 2 pkt PO BID [facility] Last Admin: 10/02/18 10:09 Dose: 2 pkt Pregabalin (Lyrica) 50 mg PO BID [facility] Last Admin: 10/02/18 10:09 Dose: 50 mg Propranolol HCl (Inderal) 10 mg PO TID [facility] Last Admin: 10/02/18 15:26 Dose: Not Given Tizanidine HCl (Zanaflex) 4 mg PO HS [facility] Last Admin: 10/01/18 21:42 Dose: 4 mg - Labs Labs: 10/02/18 08:30 10/02/18 08:30 Assessment and Plan - Assessment and Plan (Free Text) Assessment: Pt seen and examined by me. I have reviewed the note of the ophthalmic medical technologist and I agree with it. I have discussed the assessment and plan with the resident. I have reviewed the medications and the last labs.
--- NOTE | 2018-10-02 12:38 | CP.PCM.PCO ---
Assessment and Plan - Assessment and Plan (Free Text) Assessment: received a call from Staff nurse, family requested transfer of care Dr. Llamas. Spoke to Dr. Llamas. he will get back to me on that. He stated that Ms. Saray Rosas called her. discussed with Dr. Miranda. He has been her PCP. He accept transfer to his service.
--- NOTE | 2018-10-02 14:19 | CP.PCM.PN ---
Subjective - Date & Time of Evaluation Date of Evaluation: 10/02/18 Time of Evaluation: 11:00 - Subjective Subjective: Groggy, states that her pain is much better since the medication was changed to Dilaudid Objective - Vital Signs/Intake and Output Vital Signs (last 24 hours): Temp Pulse Resp BP Pulse Ox 98.5 F 65 18 104/73 96 10/02/18 06:00 10/02/18 10:09 10/02/18 06:00 10/02/18 10:09 10/02/18 06:00 Intake and Output: 10/02/18 10/02/18 06:59 18:59 Intake Total 890 30 Output Total 1200 Balance -310 30 - Medications Medications: Current Medications Acetaminophen (Tylenol 325mg Tab) 650 mg PO Q6H PRN PRN Reason: Pain, Mild (1-3) Last Admin: 09/28/18 12:30 Dose: 650 mg Alprazolam (Xanax) 0.25 mg PO Q4 PRN; Protocol PRN Reason: Anxiety Last Admin: 10/01/18 12:01 Dose: 0.25 mg Alprazolam (Xanax) 0.25 mg PO Q6 LUZ MARINA; Protocol Stop: 10/08/18 18:01 Last Admin: 10/02/18 12:17 Dose: 0.25 mg Heparin Sodium (Porcine) (Heparin) 5,000 units SC Q12 LUZ MARINA; Protocol Last Admin: 10/02/18 10:08 Dose: 5,000 units Hydromorphone HCl (Dilaudid 0.2 Mg/Ml Sheep Rancher) 30 mls @ 0 mls/hr IV PRN PRN; Protocol PRN Reason: AVIATION ELECTRICIAN PER MD ORDER Last Admin: 10/02/18 10:20 Dose: 2.5 mls/hr Ipratropium [place] (Atrovent) 0.5 mg IH [id number] LUZ MARINA Last Admin: 10/02/18 13:06 Dose: Not Given Levalbuterol HCl (Xopenex) 0.63 mg IH TIDRESP LUZ MARINA Last Admin: 10/02/18 13:06 Dose: Not Given Lidocaine (Lidoderm) 1 ea TD DAILY [facility]Z MARINA Last Admin: 10/02/18 10:08 Dose: 1 ea Methylprednisolone (Solu-Medrol) 20 mg IVP Q8 LUZ MARINA Pantoprazole Sodium (Protonix Inj) 40 mg IVP DAILY [facility] Polyethylene Glycol (Miralax) 17 gm PO BID [facility] Last Admin: 10/02/18 10:08 Dose: 17 gm Potassium Phos/Sodium Phos (Neutra-Phos) 2 pkt PO BID [facility] Last Admin: 10/02/18 10:09 Dose: 2 pkt Pregabalin (Lyrica) 50 mg PO BID [facility] Last Admin: 10/02/18 10:09 Dose: 50 mg Propranolol HCl (Inderal) 10 mg PO TID [facility] Last Admin: 10/02/18 10:09 Dose: 10 mg Tizanidine HCl (Zanaflex) 4 mg PO HS [facility] Last Admin: 10/01/18 21:42 Dose: 4 mg - Labs Labs: 10/02/18 08:30 10/02/18 08:30 - Constitutional Appears: No Acute Distress, Cachectic, Chronically Ill - Head Exam Head Exam: NORMOCEPHALIC - Eye Exam Eye Exam: Normal appearance, PERRL - ENT Exam ENT Exam: Mucous Membranes Moist - Respiratory Exam Respiratory Exam: Decreased Breath Sounds, NORMAL BREATHING PATTERN - Cardiovascular Exam Cardiovascular Exam: REGULAR RHYTHM, +S1, +S2 - GI/Abdominal Exam GI & Abdominal Exam: Soft, Normal Bowel Sounds - Extremities Exam Extremities Exam: Normal Capillary Refill - Back Exam Back Exam: vertebral tenderness - Neurological Exam Neurological Exam: Awake - Skin Skin Exam: Dry, Pallor Assessment and Plan - Assessment and Plan (Free Text) Assessment: This is a 63 year old female with history of metastatic NSCL cancer, COPD, left pleural effusions who is admitted with intractable pain. Dehydration,fecal impaction,leukocytosis and hypercalcemia have since resolved. The patient's brother Brandan at bedside. Brandan explained that his brother and sister in law were here last night and intend to return this morning. The patient is agreeable to family meeting and goals of care discussion. Palliative services met with family at patients bedside. Patients friend, Saray Womackle also present. The patient affirmed that she wishes to continue treatment. We discussed the provisions of the POLST directive that was completed yesterday. The patient affirmed that she is aware of the ramifications of CPR/intubation an d wants these measures. The patient affirmed that she wanted Brandan Pablo and Liss Arias(sister in law) to be her health care proxy's. We also talked about home care needs. Family corroborated that Brandan will assume responsibilities for patients needs at home. Family expressed that patient requesting to have Dr Weller assume her oncology care. The patient made a formal request to have Dr Weller consulted. Dr Rafia Miranda will be the patient's PCP. Family also inquired about the patient's extended [employer] benefit which allows for patient to have hospice care while receiving palliative chemotherapy I explained that this benefit could be looked into after the patient met with Dr Weller and Dr. Miranda to determine care plan. Patient expressed that she wants her pain managed so that she can function at home. Time spent with patient and family in goals of care and advance care planning, 50 minutes Plan: Goals of care and advance care planning Gomez management; Dr Chang notes reviewed; Diluadid 0.5 mg/continuos infusion and AVIATION ELECTRICIAN 0.5 q 20 minutes, Lyrica Continue Mirilax Dietary counseling PT/OT
--- NOTE | 2018-10-02 14:58 | RAD ---
Date of service: 10/02/2018 HISTORY: Constipation COMPARISON: None available. TECHNIQUE: 1 view obtained. FINDINGS: BOWEL: Normal. No obstruction. No free air. Mild constipation BONES: Normal. OTHER FINDINGS: None. IMPRESSION: No active disease.
[2018-10-02] MEDS: MethylPREDNISolone 40 mg Vial IVP SCH ×2 (15:01→21:27)
--- NOTE | 2018-10-02 15:01 | RAD ---
PROCEDURE: Radiographs of the pelvis and bilateral hips HISTORY: hip pain, s/p fall COMPARISON: None. TECHNIQUE: 2 views obtained. FINDINGS: BONES: Pelvis: Unremarkable. Right hip:Unremarkable. Left hip:Unremarkable. JOINTS: Right hip: Chronic bony deformities are seen in the proximal femurs bilaterally Left hip: As above Sacroiliac Joints: Unremarkable. Pubic symphysis: Unremarkable. SOFT TISSUES: Normal. OTHER FINDINGS: None. IMPRESSION: Chronic bony deformities are seen in the proximal femurs bilaterally
--- NOTE | 2018-10-02 15:02 | RAD ---
Date of service: 10/02/2018 HISTORY: lung ca; follow-up pleural effusion COMPARISON: 09/28/2018 TECHNIQUE: 1 view obtained. FINDINGS: LUNGS: No change in left lower lobe infiltrate PLEURA: Small left effusion. CARDIOVASCULAR: No aortic atherosclerotic calcification present. Mild cardiomegaly no pulmonary vascular congestion. OSSEOUS STRUCTURES: No significant abnormalities. VISUALIZED UPPER ABDOMEN: Normal. OTHER FINDINGS: None. IMPRESSION: No change in left lower lobe infiltrate and effusion.
[2018-10-02] MEDS ORDERED: Sodium Chloride 0.9% 300 ML IV STA (16:05)
[2018-10-02] MEDS ORDERED: Sodium Chloride 0.9% 500 ML IV STA (17:49)
[2018-10-02] MEDS: Sodium Chloride 0.9% 1,000 ML IV SCH (17:51)
--- NOTE | 2018-10-02 21:26 | PN ---
DATE: 10/02/2018 PULMONARY PROGRESS NOTE REFERRING PHYSICIAN: Christine Wood MD SUBJECTIVE: She is sleepy, arousable on Dilaudid BIOFUELS PRODUCTION TECHNICIAN pump, still has some back pain, under one to one supervision, poor appetite, not much cough. No sputum production. No hemoptysis or emesis. No hematuria. No diarrhea. OBJECTIVE: GENERAL: In no acute distress. VITAL SIGNS: Temperature is 98, heart rate is 104, blood pressure is 89/50, and pulse ox is 96% on 3 L nasal cannula. HEENT: Moist mucous membranes. No ulcer or thrush noted. NECK: Supple. No JVD. LUNGS: Has a scattered rhonchi with decreased breath sounds at the bases. HEART: S1 and S2. ABDOMEN: Soft and nontender. No organomegaly. EXTREMITIES: No edema. NEUROLOGIC: Sleepy, arousable, does follow simple commands, but goes back to sleep. MEDICATIONS: She is on Atrovent, which is not given, Colace 100 mg twice a day, Dilaudid, BIOFUELS PRODUCTION TECHNICIAN pump, heparin 5000 units subcutaneously every 12 hours, Inderal 10 mg three times a day, lidocaine patch daily, Lyrica 50 mg twice a day, MiraLax 17 g three times a day, Neutra-Phos twice a day, Protonix 40 mg daily, IV fluid normal saline 75 mL/hour, Solu-Medrol 20 mg every 8 hours, Tylenol p.r.n. basis, Xanax 0.25 mg every 4 hours p.r.n., Xanax 0.25 mg every 6 hours [id number], Xopenex inhaled every 8 hours, and Zanaflex 4 mg at bedtime. LABORATORY DATA: Shows hemoglobin 11.8, hematocrit 38.6, WBC 18.2, and platelet count is 187. Sodium 136, potassium 4.6, chloride 96, bicarbonate 33, BUN 12, creatinine 0.7, glucose 81, calcium 7.8, phosphorus 1.7, and magnesium 2.3. Alk phos is 108, AST 26, and ALT 6. Microbiology, blood culture has been negative. Had abdominal x-ray done today, which shows no active disease, also had a chest x-ray done, no change in the left lower lobe infiltrate and effusion. IMPRESSION AND PLAN: Stage IV lung cancer which is progressive disease, obstructive lung disease, pulmonary hypertension, attention deficit syndrome, chronic renal insufficiency, left adrenal mass, and anemia. Overall poor prognosis, on Dilaudid BIOFUELS PRODUCTION TECHNICIAN pump, and also on antianxiety medication. Continue supportive care, bronchodilators, supplemental oxygen, aspiration precaution, gastric prophylaxis, and deep venous thrombosis prophylaxis. We will cut down Solu-Medrol to 20 mg twice a day. Thank you and we will follow with you. Nikita Hector MD
[2018-10-03] MEDS: HYDROmorphone 0.2 mg/ml (30ml) 30 ML IV PRN ×4 (01:11→20:55)
[2018-10-03] MEDS: Ipratropium 0.02% Inhal Soln (0.5 mg/2.5 ml) UD IH SCH ×4 (01:51→19:54)
[2018-10-03] MEDS: MethylPREDNISolone 40 mg Vial IVP SCH ×3 (05:10→21:08)
[2018-10-03] MEDS: Levalbuterol 0.63 MG/3 ML Inhal Soln UD IH SCH ×3 (07:53→19:54)
[2018-10-03] MEDS: Potassium & Sodium Phosphate PO SCH ×2 (09:57→18:01)
[2018-10-03] MEDS: Lidocaine 5% Patch TD SCH (09:58)
[2018-10-03] MEDS: POLYETHYLENE GLYCOL 3350 17 GM/Dose PACKET PO SCH ×3 (09:58→18:01)
--- NOTE | 2018-10-03 10:27 | PN ---
DATE: 10/03/2018 PULMONARY PROGRESS NOTE REFERRING PHYSICIAN: Dr. Miranda. SUBJECTIVE: The patient is seen lying in bed, awake, alert and verbal. Family at bedside. CIVIL MANAGER pump ongoing. Reports no cough, still gets short of breath. Has some back pain, but it has improved with CIVIL MANAGER pump. No headache, rhinitis, chest pain, abdominal pain, nausea, vomiting, diarrhea, leg pain or leg swelling reported. OBJECTIVE: GENERAL: No acute distress. VITAL SIGNS: Blood pressure 86/56, pulse 84, temperature 98.2 and oxygen saturation 99 on nasal cannula. HEENT: Moist mucous membranes. NECK: Supple. No JVD. LUNGS: Scattered rhonchi. Decreased breath sounds at the bases. CARDIOVASCULAR: S1 and S2. ABDOMEN: Soft and nontender. No distention. No organomegaly. EXTREMITIES: No bilateral lower extremity edema. NEUROLOGIC: Awake, alert and verbal. Following commands. MEDICATIONS: Reviewed. Tylenol 650 every 6 hours p.r.n. for mild pain, Xanax 0.25 mg every 4 hours p.r.n., Xanax 0.25 mg every 6 hours, Colace 100 mg twice a day, heparin 5000 units subcutaneous every 12 hours, Dilaudid 0.2 mg CIVIL MANAGER pump, Atrovent 0.5 mg inhalation every 6 hours, Xopenex 0.63 mg inhalation 3 times a day, lidocaine patch transdermal daily to affected area, Solu-Medrol 20 mg every 8 hours, Protonix 40 mg IV push daily, MiraLax 17 g three times a day, Neutra-Phos 2 packets twice a day, Lyrica 15 mg twice a day, Inderal 10 mg three times a day, sodium chloride 0.9% 1000 mL at 75 mL per hour and Zanaflex 4 mg at bedtime. LABORATORY DATA: Reviewed. Procalcitonin 0.13. No new labs since yesterday. IMPRESSION AND PLAN: Stage IV lung cancer which is progressive disease, obstructive lung disease, pulmonary hypertension, attention deficit syndrome, chronic renal insufficiency, left adrenal mass, and anemia. On patient-controlled analgesia pump. Continue supportive care. Continue inhaled bronchodilators, supplemental oxygen, gastric prophylaxis, deep venous thrombosis prophylaxis and aspiration precaution. We will continue current Solu-Medrol dosing at this time, recommend to consider titrating. Fall precautions. Hematology and oncology followup. This patient was seen and examined with Dr. Hector. Discussed assessment and plan as described above. This patient was seen and examined with Derek Ellis, nurse practitioner. Discussed assessment and plan as described above. Thank you for this consult and we will follow with you. Derek Ellis APN Nikita Hector MD
--- NOTE | 2018-10-03 11:45 | CP.PCM.PN ---
Subjective - Date & Time of Evaluation Date of Evaluation: 10/03/18 Time of Evaluation: 08:20 - Subjective Subjective: Still feels weak and with pain, no fevers. Objective - Vital Signs/Intake and Output Vital Signs (last 24 hours): Temp Pulse Resp BP Pulse Ox 98.5 F 65 18 104/73 96 10/02/18 06:00 10/02/18 10:09 10/02/18 06:00 10/02/18 10:09 10/02/18 06:00 Intake and Output: 10/02/18 10/02/18 06:59 18:59 Intake Total 890 30 Output Total 1200 Balance -310 30 - Medications Medications: Current Medications Acetaminophen (Tylenol 325mg Tab) 650 mg PO Q6H PRN PRN Reason: Pain, Mild (1-3) Last Admin: 09/28/18 12:30 Dose: 650 mg Alprazolam (Xanax) 0.25 mg PO Q4 PRN; Protocol PRN Reason: Anxiety Last Admin: 10/01/18 12:01 Dose: 0.25 mg Alprazolam (Xanax) 0.25 mg PO Q6 LUZ MARINA; Protocol Stop: 10/08/18 18:01 Last Admin: 10/02/18 12:17 Dose: 0.25 mg Famotidine (Pepcid) 20 mg PO DAILY LUZ MARINA Last Admin: 10/02/18 10:09 Dose: 20 mg Heparin Sodium (Porcine) (Heparin) 5,000 units SC Q12 LUZ MARINA; Protocol Last Admin: 10/02/18 10:08 Dose: 5,000 units Hydromorphone HCl (Dilaudid 0.2 Mg/Ml Crime Scene Specialist) 30 mls @ 0 mls/hr IV PRN PRN; Protocol PRN Reason: SET AND EXHIBIT DESIGNER PER MD ORDER Last Admin: 10/02/18 10:20 Dose: 2.5 mls/hr Ipratropium Willis (Atrovent) 0.5 mg IH [id number] [facility] Last Admin: 10/02/18 07:50 Dose: Not Given Levalbuterol HCl (Xopenex) 0.63 mg IH TIDRESP LUZ MARINA Last Admin: 10/02/18 07:50 Dose: Not Given Lidocaine (Lidoderm) 1 ea TD DAILY LUZ MARINA Last Admin: 10/02/18 10:08 Dose: 1 ea Polyethylene Glycol (Miralax) 17 gm PO BID [facility] Last Admin: 10/02/18 10:08 Dose: 17 gm Potassium Phos/Sodium Phos (Neutra-Phos) 2 pkt PO BID [facility] Last Admin: 10/02/18 10:09 Dose: 2 pkt Pregabalin (Lyrica) 50 mg PO BID [facility] Last Admin: 10/02/18 10:09 Dose: 50 mg Propranolol HCl (Inderal) 10 mg PO TID [facility] Last Admin: 10/02/18 10:09 Dose: 10 mg Tizanidine HCl (Zanaflex) 4 mg PO HS [facility] Last Admin: 10/01/18 21:42 Dose: 4 mg - Labs Labs: 10/02/18 08:30 10/02/18 08:30 - Constitutional Appears: Chronically Ill - Head Exam Head Exam: NORMAL INSPECTION Assessment and Plan - Assessment and Plan (Free Text) Plan: Assessment S/P sepsis due to obstructive pneumonitis lung cancer history of severe sepsis from methicillin-sensitive staph aureus bacteremia, probably port-related bacteremia, S/P port removal history of left sided HCAP history of fever and neutropenia bilateral lower extremity swelling, consider venous stasis acute on chronic renal failure S/P Sepsis due to left lower HCAP, probably post-obstructive pneumonitis in a patient with 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
--- NOTE | 2018-10-03 12:21 | PN ---
DATE: 10/03/2018 SUBJECTIVE: The patient has no complaints of any chest pain. No shortness of breath. She is awake and alert. She is able to recognize me. She understands her current medical condition. PHYSICAL EXAMINATION: VITAL SIGNS: Temperature is 98.2, pulse of 84, blood pressure of 86/56, respiration 19, and O2 saturation 99%. GENERAL: The patient is lying in bed, flat, comfortable. HEENT: No oral lesion. Anicteric sclerae. Moist mucosa. NECK: No JVD, adenopathy, or thyromegaly. CARDIOVASCULAR: S1 and S2, regular. No murmurs, rubs, or gallops. LUNGS: Clear to auscultation bilaterally. No wheeze, rales, or rhonchi. ABDOMEN: Bowel sounds are positive, soft, nontender and nondistended. EXTREMITIES: No cyanosis, clubbing or edema. ASSESSMENT: 1. Sepsis secondary to hospital-acquired pneumonia. 2. Non-squamous cell lung cancer, stage IV. 3. End-stage chronic obstructive pulmonary disease. 4. Chronic kidney disease, stage III. 5. Anemia. 6. Hypercalcemia, improved. 7. Pulmonary hypertension. 8. Attention deficit hyperactivity disorder. 9. Anxiety. 10. Constipation. 11. Hypophosphatemia. 12. Hypomagnesemia, improved. PLAN: The patient is currently comfortable. She is alert and awake. She understands her current medical condition. She does confirm that regarding her power of collarette separator is her brother and is going to make medical decisions if needed. The patient would like to continue with Dr. Wood as her oncologist. She did have issues of blood pressure yesterday. I gave her boluses of IV fluids and started her on normal saline. The patient is on Protonix daily. She is getting foster's replacement for hypophosphatemia. The patient is on Dilaudid drip and pain is better controlled. She has been using the Dilaudid multiple times throughout a day and this may be one of the causes of her hypotension. She is asymptomatic. Alejandro Miranda MD
[2018-10-04] MEDS: Ipratropium 0.02% Inhal Soln (0.5 mg/2.5 ml) UD IH SCH ×3 (01:06→14:03)
--- NOTE | 2018-10-04 04:19 | CON ---
DATE: 10/03/2018 ONCOLOGY CONSULTATION NOTE LOCATION: The patient is in room 362. REFERRING PHYSICIAN: Alejandro Miranda MD REASON FOR CONSULTATION: I have been asked to see the patient at the request of the family. The patient has been seen and managed by Dr. Wood until recent and I have spoken to Dr. Wood yesterday. She gave me the history on the patient as to what has been given for her so far. She also explained to me that patient has had progression of her disease over the last several weeks, requiring admission to the hospital few times in the last 3 months. HISTORY OF PRESENT ILLNESS: This is a 63-year-old female with metastatic stage IV nonsmall-cell lung carcinoma of squamous cell histology. History dates back to 03/2017 and 04/2017 when she was documented to have a large lesion in the left lower lobe that was positive for poorly-differentiated squamous cell carcinoma. PET/CT in 05/2017 that showed a large cavitary mass with subcentimeter mediastinal nodes and adrenal metastasis. The patient had subsequently several courses of chemotherapy. Biopsy from 06/2017 from the adrenal gland was sent for various markers and was negative for CAMI gene, ROS gene, EGFR, and PD-L1. Upon my discussion with Dr. Wood, the patient has had series of different chemotherapeutic agents as the patient wanted to be continued on treatments with palliative chemotherapy. The patient had received initially a combination of carboplatinum based regimen, carboplatinum and then had side effects of the kidney. Subsequent to that, the patient has had gemcitabine based chemotherapy followed by NAB-paclitaxel or Abraxane based chemotherapy and more recently about three and half weeks ago had received immunotherapy with Keytruda as monotherapy. The patient is currently admitted to the hospital with progressively worsening pains in the mid and lower back consistent with progressive metastatic disease with failure to thrive. Over the last few weeks, the pain has become excruciating as per the patient and the family, the pain on the pain score of 0/10 was 9 and more recently after obtaining consultation with the pain distributor sales consultant, the patient has been started on MECHANICAL TECHNICAL SERVICE SPECIALIST Dilaudid and currently, the pain appears to be better controlled. The patient currently subjectively, the patient is seen sitting up in bed, is awake, alert, and verbal. Family including both her sisters are at the bedside. Also spoke to both the brothers; one from [place] and one living in [place] with the patient. The MECHANICAL TECHNICAL SERVICE SPECIALIST pump is ongoing. The patient is on MECHANICAL TECHNICAL SERVICE SPECIALIST Dilaudid 0.5 an hour with bolus of 0.25 mg. The patient reports no cough, but still complains of significant shortness of breath. Primarily, pain is generalized, but more commonly the pain is in the mid and lower back. Denies any headaches, rhinitis, nausea, or vomiting. The patient is constipated, has not had a significant bowel movement despite getting a dose of Relistor yesterday. At the request of the family, I had ordered x-rays after seeing the patient. The patient had a flat plate of the abdomen to check for constipation. She had x-rays of both hips and the pelvis just to make sure she did not have any lytic lesion or impending fracture of the femur as she was having a lot of pain in those areas subsequent to a fall at home. Scan of the head and the upper thoracic spine were negative in the recent past. I reviewed the CAT scan of the chest done recently, which reveals progressive massive adenopathy investing the left main bronchus with obstructive atelectasis along with left lower lobe pleural effusion. The patient also has a dilated pulmonary artery consistent with pulmonary hypertension. In addition to that, there is extensive sclerotic mass affecting the ribs and the upper lumbar vertebral body with a lytic mass at T11. New lesions are seen in the right lung lower lobe as well. PHYSICAL EXAMINATION: GENERAL: The patient is in no acute distress, but is in significant pain. Pain score is about 5/10 on the current MECHANICAL TECHNICAL SERVICE SPECIALIST Dilaudid. VITAL SIGNS: Reviewed, blood pressure of 86/56, pulse of 84, T-max is 98.2, and O2 sat is 99% on nasal cannula. HEENT: Head is normocephalic and atraumatic. Conjunctivae are pale. Sclerae are anicteric. Pupils are equally reactive to light and accommodation. Examination of the oropharynx reveals moist mucous membranes. NECK: Supple. There is no adenopathy. No jugular venous distention noted. LUNGS: Reveal bilateral rhonchi with decreasing breath sounds on the left side and on the right base as well. CARDIOVASCULAR: Reveals S1 and S2 to be normal. No gallop or murmur is heard. ABDOMEN: Soft and nontender. No rebound, rigidity, or guarding is noted. EXTREMITIES: The patient is complaining of hip pain in both hips, left greater than the right. There is no evidence of edema or any evidence of cyanosis in both lower extremities. Upper extremities are within normal limits. NEUROLOGIC: Reveals no focal deficits. The patient is awake, alert, and verbal and had intelligent conversation with the patient. MEDICATIONS: The patient's medications were reviewed. She is on Tylenol 650 every 6 hours p.r.n. for mild pain, Xanax 0.25 mg every 4 hours p.r.n., Xanax 0.25 mg every 6 hours, Colace 100 mg twice a day, heparin 5000 units subcutaneously every 12 hours, Dilaudid 0.2 mg MECHANICAL TECHNICAL SERVICE SPECIALIST pump, Atrovent 0.5 mg inhalations every 6 hours, Xopenex 0.63 mg inhalation 3 times a day, Lidocaine patch transdermal to affected areas, Solu-Medrol 20 mg every 8 hours, Protonix 40 mg IV push daily, MiraLax 17 g 3 times a day, Neutra-Phos 2 packets twice a day, Lyrica 15 mg twice a day, Inderal 10 mg p.o. three times a day, IV fluids at 75 mL an hour, and Zanaflex 4 mg at bedtime. LABORATORY DATA: Most recent lab data reveals procalcitonin of 0.3. Last labs that were in the computer reveals the following; CBC from 10/02/2018 reveals a white count of 18.2, hemoglobin 11.8, hematocrit of 38.6, and platelet count of 187,000. Chemistries reveal electrolytes to be within normal limits. Chloride is slightly decreased at 97. Creatinine clearance is greater than 60 with a BUN of 12 and creatinine of 0.7. Random sugars are within normal limits. Calcium is 7.8 post Zometa given last week, phosphorus is 1.7. AST and ALT are within normal limits. Alkaline phosphatase is 108. ABGs from 08/2018 is the last one we have due to is in the high 90s on nasal cannula. ASSESSMENT, NOTES, AND PLAN: I had a lengthy conversation done with the entire family including both the sisters and the brother along with the patient. I also spoke to the patient in great detail about the current findings and after my discussion with Dr. Wood yesterday. The patient unfortunately has progressive metastatic stage IV squamous cell carcinoma of the lung in view of the increasing back pain and the evidence of extensive sclerotic changes plus lytic mass in T11 question about possible involvement of the cord of the nerve root is raised, possible evaluation of the back after getting neurologic evaluation would be appropriate including MRI of the spine for targeted radiation. The patient already received bisphosphonates recently, so we will monitor her calcium level to make sure they do not go down further. In the meantime, the patient is on steroids and MECHANICAL TECHNICAL SERVICE SPECIALIST Dilaudid. Options were explained to the patient about doing nothing versus continuing palliative treatment. The patient and the family are very eager specifically the patient that she should continue treatments and she does not want the treatments to be stopped at this point in time. Options offered to her was continuing the immunotherapy with the understanding some times immunotherapy can exacerbate the bone pains but in conjunction with immunotherapy, the patient could probably get combination therapy with drug that she has not been exposed to such as docetaxel or single agent such as Topotecan, irinotecan, or vinorelbine, which she has not been exposed to in the recent past. The patient had only one dose of the Keytruda, but she could be a candidate for additional treatments with that while we are modifying how the pain should be controlled. All these options were given in great detail to the patient. I told the patient that I will speak to Dr. Miranda as well, speak to Dr. Prabhakar to figure out what she may have had in the past as I was told the patient did receive radiation in the past for hemoptysis and that radiation was given to left lower lobe of the lung. I would check with Dr. Prabhakar if she is a candidate for palliative radiation to the spine while combining immunotherapy. I also explained to the patient that the overall prognosis is guarded and that we can still be cautiously optimistic about continuing her treatments. The patient showed me the picture of her son and she told me that she would like to strive at least to live as long as possible for her son if feasible. I explained to the whole family about the situation that the patient was in that I could not make any promises and that we would try to do our best. My final understanding after discussing all these findings with the entire family was that they were in agreement that we should proceed with palliative therapy once the patient is stabilized from the pain point of view. I told the family that I would have to review the and I have to review some of the x-rays and speak to Dr. Prabhakar as well and get Neurology involved as far as further control of pain is concerned. Speak to Dr. Hector from the pulmonology point of view. Please make a note this is a complex patient with multiple comorbid medical issues. Time spent with the patient was in excess of 80 minutes. We will speak to Dr. Alejandro Miranda as well in person. Valorie Weller MD
[2018-10-04] MEDS: MethylPREDNISolone 40 mg Vial IVP SCH ×3 (06:09→21:04)
[2018-10-04] MEDS: Levalbuterol 0.63 MG/3 ML Inhal Soln UD IH SCH ×3 (08:19→19:45)
[2018-10-04] MEDS: HYDROmorphone 0.2 mg/ml (30ml) 30 ML IV PRN ×3 (08:56→23:06)
[2018-10-04] MEDS: Potassium & Sodium Phosphate PO SCH ×2 (10:14→17:19)
[2018-10-04] MEDS: POLYETHYLENE GLYCOL 3350 17 GM/Dose PACKET PO SCH ×3 (10:15→17:19)
[2018-10-04] MEDS: Lidocaine 5% Patch TD SCH (10:15)
--- NOTE | 2018-10-04 12:55 | PN ---
DATE: 10/04/2018 PULMONARY PROGRESS NOTE REFERRING PHYSICIAN: Dr. Miranda. SUBJECTIVE: The patient is seen sitting up at bedside. No acute distress. No overnight events reported. States that she still gets shortness of breath. Denies any coughing. Per nursing documentation, the patient had bowel movement this morning. Reports that she still gets some pain to lower back area. No headache, rhinitis, chest pain, abdominal pain, nausea, vomiting, diarrhea, leg pain or leg swelling reported. OBJECTIVE GENERAL: No acute distress. VITAL SIGNS: Blood pressure 103/66, pulse 69, temperature 97.8 and oxygen saturation 100%. HEENT: Moist mucous membranes. NECK: Supple. No JVD. LUNGS: Scattered rhonchi bilaterally. Decreased breath sounds at the bases. CARDIOVASCULAR: S1 and S2. ABDOMEN: Soft and nontender. No distention. No organomegaly. EXTREMITIES: No bilateral lower extremity edema. NEUROLOGIC: Awake, alert and verbal. Following commands. MEDICATIONS: Reviewed. Tylenol 650 mg every 6 hours p.r.n. Xanax 0.25 mg every 4 hours p.r.n., Xanax 0.25 mg every 6 hours, Colace 100 mg twice a day, heparin 5000 units subcutaneous every 12 hours, Dilaudid 0.2 mg via SPINNING DOFFER pump, Atrovent 0.5 mg inhalation every 6 hours, Xopenex 0.63 mg inhalation 3 times a day, lidocaine patch transdermal daily, Solu-Medrol 20 mg IV push every 8 hours, Protonix 40 mg IV push daily, MiraLax 17 g 3 times a day, Neutra-Phos 2 packets twice a day, Lyrica 15 mg twice a day, Inderal 10 mg p.o. 3 times a day, sodium chloride 0.9% a 1000 mL at 75 mL per hour and Zanaflex 4 mg p.o. at bedtime. LABORATORY DATA: Reviewed. Blood cultures preliminary no growth after 48 hours. IMPRESSION AND PLAN: Stage IV lung cancer which is progressive, obstructive lung disease, pulmonary hypertension, chronic renal insufficiency, left adrenal mass, attention deficit syndrome and anemia on patient-controlled analgesia pump. Continue inhaled bronchodilators, supplemental oxygen, gastric prophylaxis, deep venous thrombosis prophylaxis. Continue supportive care and aspiration precaution. We will consider decreasing Solu-Medrol tomorrow. Fall precautions. Hematology and oncology followup. This patient was seen and examined with Dr. Hector. Discussed assessment and plan as described above. This patient was seen and examined with Derek Ellis, nurse practitioner. Discussed assessment and plan as described above. Thank you for this consult and we will follow with you. Derek Ellis APN Nikita Hector MD
--- NOTE | 2018-10-04 15:38 | PN ---
DATE: 10/04/[address] Miranda. SUBJECTIVE: The patient is 63-year-old, seen and examined. Sitting in bed, seems to be comfortable. PHYSICAL EXAMINATION: GENERAL: She looks pale. She has alopecia probably secondary to chemotherapy. Does not seem to be in any apparent distress. Does not offer any complaint. Currently she is on analgesic. She has OYSTER FISHERMAN pump. Denies any nausea, vomiting, but has poor oral intake. Scanty cough here and there, less short of breath on minimal walking, compliant of some back pain. VITAL SIGNS: She is afebrile. Pulse 69, respiration 18 and blood pressure 103/66. LUNGS: Bilateral fair expiratory rhonchi. Decreased breath sounds exteriorly. HEAD AND NECK: No anicteric sclerae, pale conjunctiva, dry oral mucosa. HEART: S1 and S2, audible. ABDOMEN: Soft and nontender. No rebound. No guarding. NEUROLOGIC: The patient is awake, alert and able to communicate. EXTREMITIES: No bilateral leg edema. LABORATORY DATA: There is no new lab available today. Yesterday; sodium 136, potassium 4.6, chloride 97, CO2 of 33, BUN 12, creatinine 0.7, blood sugar 81 and phosphorous 1.7. ASSESSMENT: 1. Metastatic lung cancer metastasis to the bone and skull. 2. History of chronic obstructive pulmonary disease. 3. Renal insufficiency. 4. Left adrenal mass. 5. History of pulmonary hypertension. 6. Chronic anemia. PLAN: Currently, the patient is on nebulizer treatment. She is on OYSTER FISHERMAN pump with Dilaudid. She is on DVT prophylaxis. She is on Lyrica. She is on analgesic. She is on mineral supplement. She is getting statins. She is on IV fluid. Plan for hospice care next week. Blair Eisenberg MD
[2018-10-04] MEDS: Sodium Chloride 0.9% 1,000 ML IV SCH (17:19)
[2018-10-04 18:11] LABS: PH,URINE 6.5 (4.7-8.0); URINE APPEARANCE CLEAR (CLEAR); URINE BILIRUBIN NEGATIVE (NEGATIVE); URINE BLOOD TRACE-LYSED (NEGATIVE); URINE COLOR STRAW (YELLOW); URINE GLUCOSE (UA) 250 mg/dL (NEGATIVE); URINE LEUKOCYTE ESTERASE NEGATIVE Leu/uL (NEGATIVE); URINE PROTEIN 30 mg/dL (<30 mg/dL); URINE UROBILINOGEN 0.2 E.U./dL (<1 E.U./dL)
[2018-10-04 19:57] LABS: URINE BACTERIA SMALL /hpf; URINE EPITHELIAL CELLS 0 - 2 /hpf (0-5); URINE RBC 0 - 2 /hpf (0-2); URINE WBC 0 - 2 /hpf (0-6)
--- NOTE | 2018-10-04 21:32 | PN ---
DATE: 10/04/2018 LOCATION: Patient was seen earlier today in room 362, bed 2. SUBJECTIVE: Patient has complained of weakness. She is awake and alert. PHYSICAL EXAMINATION VITAL SIGNS: Temperature is 98, blood pressure is 115/70, respiratory rate is 16. HEENT: Unremarkable. NECK: Supple. LUNGS: Decreased breath sounds. HEART: Normal S1 and S2. ABDOMEN: Soft and nontender. LABORATORY DATA: Reveals a white count of 18,000, hemoglobin of 11. Chemistries are noted. Creatinine is 0.7. Urinalysis is noted. Microbiology reveals the blood cultures are negative. Urine cultures are not done. CURRENT MEDICATIONS: List under orders reveals the patient to be on Solu-Medrol, off of antibiotics. ASSESSMENT AND PLAN: This is 63-year-old female seen earlier today who appears chronically ill and cachectic with wasting syndrome who is status post sepsis due to obstructive pneumonitis in case of lung cancer and sensitive Staphylococcus aureus bacteremia by history, history of left-sided healthcare-associated pneumonia and neutropenia status post treatment with meropenem. Currently off of antibiotics. Patient is on steroids. At risk for developing of nosocomial infections. Eliezer Stuart MD
[2018-10-05] MEDS: Ipratropium 0.02% Inhal Soln (0.5 mg/2.5 ml) UD IH SCH ×4 (01:15→19:57)
[2018-10-05] MEDS: MethylPREDNISolone 40 mg Vial IVP SCH ×3 (05:04→22:34)
[2018-10-05] MEDS: Levalbuterol 0.63 MG/3 ML Inhal Soln UD IH SCH ×3 (08:02→19:57)
--- NOTE | 2018-10-05 08:41 | CP.PCM.PN ---
<Tyler Sales - Last Filed: 10/05/18 19:51> Subjective - Date & Time of Evaluation Date of Evaluation: 10/05/18 Time of Evaluation: 06:00 - Subjective Subjective: Tyler Sales PGY2 Heme/Onc Progress Note for Dr. Weller Patient seen and evaluated bedside. Patient still complaining on intense back pain and having trouble ambulating. Patient states she wants to get better and wants to walk around. Denies fever chills, nausea, vomiting, or any other complaints. Objective - Vital Signs/Intake and Output Vital Signs (last 24 hours): Temp Pulse Resp BP Pulse Ox 97.7 F 86 18 103/71 100 10/05/18 08:39 10/05/18 08:39 10/05/18 08:39 10/05/18 08:39 10/05/18 08:39 Intake and Output: 10/05/18 10/05/18 06:59 18:59 Intake Total 870 Output Total 1150 Balance -280 - Medications Medications: Current Medications Acetaminophen (Tylenol 325mg Tab) 650 mg PO Q6H PRN PRN Reason: Pain, Mild (1-3) Last Admin: 09/28/18 12:30 Dose: 650 mg Alprazolam (Xanax) 0.25 mg PO Q4 PRN; Protocol PRN Reason: Anxiety Last Admin: 10/05/18 08:21 Dose: 0.25 mg Alprazolam (Xanax) 0.25 mg PO Q6 [facility]; Protocol Stop: 10/08/18 18:01 Last Admin: 10/05/18 05:04 Dose: 0.25 mg Docusate Sodium (Colace) 100 mg PO BID [facility] Last Admin: 10/04/18 17:19 Dose: 100 mg Heparin Sodium (Porcine) (Heparin) 5,000 units SC Q12 [facility] MAR[facility]; Protocol Last Admin: 10/04/18 21:04 Dose: 5,000 units Hydromorphone HCl (Dilaudid 0.2 Mg/Ml Mold Release Worker) 30 mls @ 0 mls/hr IV PRN PRN; Protocol 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 MD ORDER Last Admin: 10/04/18 23:06 Dose: 2.5 mls/hr Sodium Chloride (Sodium Chloride 0.9%) 1,000 mls @ 75 mls/hr IV .[id number] [facility] Last Admin: 10/04/18 17:19 Dose: 75 mls/hr Ipratropium [place] (Atrovent) 0.5 mg IH [id number] [facility] Last Admin: 10/05/18 08:02 Dose: Not Given Levalbuterol HCl (Xopenex) 0.63 mg IH TIDRESP [facility] Last Admin: 10/05/18 08:02 Dose: Not Given Lidocaine (Lidoderm) 1 ea TD DAILY [facility] Last Admin: 10/04/18 10:15 Dose: 1 ea Methylprednisolone (Solu-Medrol) 20 mg IVP Q8 [facility] Last Admin: 10/05/18 05:04 Dose: 20 mg Pantoprazole Sodium (Protonix Inj) 40 mg IVP DAILY [facility] Last Admin: 10/04/18 10:15 Dose: 40 mg Polyethylene Glycol (Miralax) 17 gm PO TID [facility] Last Admin: 10/04/18 17:19 Dose: 17 gm Potassium Phos/Sodium Phos (Neutra-Phos) 2 pkt PO BID [facility] Last Admin: 10/04/18 17:19 Dose: 2 pkt Pregabalin (Lyrica) 50 mg PO BID [facility] Last Admin: 10/04/18 17:19 Dose: 50 mg Propranolol HCl (Inderal) 10 mg PO TID [facility] Last Admin: 10/04/18 17:19 Dose: 10 mg Tizanidine HCl (Zanaflex) 4 mg PO HS [facility] Last Admin: 10/04/18 21:05 Dose: 4 mg - Labs Labs: 10/02/18 08:30 10/02/18 08:30 - Constitutional Appears: No Acute Distress - Eye Exam Eye Exam: Normal appearance - ENT Exam ENT Exam: Mucous Membranes Moist - Respiratory Exam Respiratory Exam: NORMAL BREATHING PATTERN - Cardiovascular Exam Cardiovascular Exam: REGULAR RHYTHM - Neurological Exam Neurological Exam: Alert, Awake, Oriented x3 Assessment and Plan - Assessment and Plan (Free Text) Plan: 63 female with a past medical history of COPD, CKD, 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 Plan -T12 lytic lesion present -recommend Neuro consult -Ca 6.8, ionized calcium level pending -corrected calcium: 7.5 -Calcium gluconate 1 amp given -monitor Calcium level -pain control with fentanyl patch -Dr. Prabhakar, radiation onc consulted -recommend MRI of spine <Valorie Weller P - Last Filed: 10/10/18 12:46> Objective - Vital Signs/Intake and Output Vital Signs (last 24 hours): Temp Pulse Resp BP Pulse Ox 98.2 F 77 18 120/70 100 10/09/18 13:57 10/09/18 17:57 10/09/18 13:57 10/09/18 17:57 10/09/18 06:00 - Medications Medications: Current Medications Acetaminophen (Tylenol 325mg Tab) 650 mg PO Q6H PRN PRN Reason: Pain, Mild (1-3) Last Admin: 09/28/18 12:30 Dose: 650 mg Alprazolam (Xanax) 0.25 mg PO Q4 PRN; Protocol PRN Reason: Anxiety Last Admin: 10/10/18 10:41 Dose: 0.25 mg Calcium Carbonate (Oscal) 500 mg PO BID [facility] Last Admin: 10/10/18 10:41 Dose: 500 mg Docusate Sodium (Colace) 100 mg PO BID [facility] Last Admin: 10/10/18 10:54 Dose: Not Given Fentanyl (Duragesic) 1 patch TD Q72H [facility] Last Admin: 10/08/18 17:18 Dose: Not Given Heparin Sodium (Porcine) (Heparin) 5,000 units SC Q12 [facility]; Protocol Last Admin: 10/10/18 11:04 Dose: 5,000 units Hydromorphone HCl (Dilaudid) 1 mg IVP Q2H PRN PRN Reason: Pain, severe (8-10) Last Admin: 10/10/18 10:59 Dose: 1 mg Sodium Chloride (Sodium Chloride 0.9%) 1,000 mls @ 75 mls/hr IV .[id number] [facility] Last Admin: 10/08/18 08:27 Dose: 75 mls/hr Hydromorphone HCl (Dilaudid 0.2 Mg/Ml Mold Release Worker) 30 mls @ 5 mls/hr IV PRN PRN; Protocol 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 MD ORDER Last Admin: 10/10/18 11:55 Dose: 5 mls/hr Lidocaine (Lidoderm) 1 ea TD DAILY [facility] Last Admin: 10/10/18 10:54 Dose: Not Given Lidocaine (Lidoderm) 1 ea TD DAILY [facility] Last Admin: 10/10/18 10:54 Dose: Not Given Methylprednisolone (Solu-Medrol) 20 mg IVP Q12 [facility] Last Admin: 10/10/18 10:41 Dose: 20 mg Pantoprazole Sodium (Protonix Ec Tab) 40 mg PO ACB [facility] Last Admin: 10/10/18 06:33 Dose: 40 mg Polyethylene Glycol (Miralax) 17 gm PO TID [facility] Last Admin: 10/10/18 10:54 Dose: Not Given Potassium Phos/Sodium Phos (Neutra-Phos) 2 pkt PO BID [facility] Last Admin: 10/10/18 11:19 Dose: Not Given Pregabalin (Lyrica) 75 mg PO BID [facility] Last Admin: 10/10/18 10:41 Dose: 75 mg Tizanidine HCl (Zanaflex) 4 mg PO HS [facility] Last Admin: 10/09/18 22:17 Dose: 4 mg - Labs Labs: 10/10/18 07:00 10/10/18 07:00 Attending/Attestation - Attestation I have personally seen and examined this patient.: Yes I have fully participated in the care of the patient.: Yes I have reviewed all pertinent clinical information, including history, physical exam and plan: Yes
[2018-10-05 09:02] LABS: LYMPH # 0.6 (1.2-3.4); LYMPH % 3.3 % (22.0-35.0); MEAN CORPUSCULAR HEMOGLOBIN 28.5 pg (25.0-35.0); MEAN CORPUSCULAR HGB CONC 30.3 g/dl (31.0-37.0); MONO # 0.5 (0.1-0.6); MONO % 2.8 % (1.0-6.0); PLATELET COUNT 213 10^3/uL (120.0-450.0); RBC 3.51 10^6/uL (3.5-6.1); RED CELL DISTRIBUTION WIDTH 18.6 % (11.5-14.5); WHITE BLOOD COUNT 17.2 10^3/uL (4.5-11.0)
[2018-10-05] MEDS: HYDROmorphone 0.2 mg/ml (30ml) 30 ML IV PRN ×3 (09:07→16:06)
[2018-10-05 09:22] LABS: ALB/GLOB RATIO 0.9 (1.1-1.8); ALBUMIN 3.1 g/dL (3.0-4.8); ALT/SGPT 12 U/L (7-56); AST/SGOT 28 U/L (14-36); BLOOD UREA NITROGEN 18 mg/dL (7-21); CALCIUM 6.8 mg/dL (8.4-10.5); GFR NON-AFRICAN AMERICAN > 60
[2018-10-05] MEDS: Potassium & Sodium Phosphate PO SCH ×2 (09:59→17:00)
[2018-10-05] MEDS: POLYETHYLENE GLYCOL 3350 17 GM/Dose PACKET PO SCH ×3 (09:59→17:00)
[2018-10-05] MEDS: Lidocaine 5% Patch TD SCH ×2 (10:00→13:30)
--- NOTE | 2018-10-05 10:10 | PN ---
DATE: 10/02/2018 SUBJECTIVE: The patient was seen and examined. I do agree with the note of the territory sales manager medical. I was involved in the plan of care. The patient has metastatic lung CA. She is being followed by Dr. Wood. The patient is not well enough to go home. She has sepsis that is improved, but she continues to have elevated white cell count. She is on IV antibiotics. MEDICATIONS: The patient is currently on propranolol. She was given phosphorus replacement because of her hypophosphatemia. The patient is on Dilaudid for her pain with a KENNEL AIDE pump by Pain Management. She says it is better. She is on Xanax for her anxiety by Psychiatry. ASSESSMENT AND PLAN: She is being followed by me for her chronic kidney disease stage 3. She initially had acute kidney injury that has improved. I spoke with Dr. Wood today. There are issues between the family and the patient. They have asked for a second opinion with Dr. Weller. Dr. Weller will be a second opinion for the patient. The preliminary report from Dr. Weller's group add there is no change in treatment. He agrees with the management. He is not interested in taking over the care because he does not feel he can add anything to the case. The patient is a full code. The family dynamics are complicated, there was a friend named, Saray that had involved the care of this patient Liss Bills from palliative care as I discussed the case with the patient and with Dr. Wood, I did review her note. The patient confirmed that Kai and Liss will be the healthcare proxy. Dr. Wood has asked me to take over as primary care, which I have accepted. The patient had abdominal x-ray done that shows no active disease. She has a young son at home who is 17 that she is concerned about. The patient has had a hip x-ray that showed chronic deformities that are seen in the proximal femurs bilaterally. This is a highly complex patient. We will continue to follow closely. She is on heparin for deep venous thrombosis prophylaxis. Alejandro Miranda MD
[2018-10-05 10:18] LABS: LYMPHOCYTE 1 % (22.0-35.0); MONOCYTE 1 % (1.0-6.0); NEUTROPHIL 98 % (50.0-70.0); PLATELET ESTIMATE NORMAL (NORMAL)
[2018-10-05] MEDS ORDERED: Calcium Gluconate in NS 1 GM/50 ML BAG IV ONE (11:45)
--- NOTE | 2018-10-05 12:35 | CP.PCM.PN ---
Subjective - Date & Time of Evaluation Date of Evaluation: 10/05/18 Time of Evaluation: 10:00 - Subjective Subjective: Drowsy, complains of back pain Objective - Vital Signs/Intake and Output Vital Signs (last 24 hours): Temp Pulse Resp BP Pulse Ox 97.7 F 86 18 103/71 100 10/05/18 08:39 10/05/18 10:00 10/05/18 08:39 10/05/18 10:00 10/05/18 08:39 Intake and Output: 10/05/18 10/05/18 06:59 18:59 Intake Total 870 30 Output Total 1150 Balance -280 30 - Medications Medications: Current Medications Acetaminophen (Tylenol 325mg Tab) 650 mg PO Q6H PRN PRN Reason: Pain, Mild (1-3) Last Admin: 09/28/18 12:30 Dose: 650 mg Alprazolam (Xanax) 0.25 mg PO Q4 PRN; Protocol PRN Reason: Anxiety Last Admin: 10/05/18 08:21 Dose: 0.25 mg Alprazolam (Xanax) 0.25 mg PO Q6 [facility]INA; Protocol Stop: 10/08/18 18:01 Last Admin: 10/05/18 12:06 Dose: 0.25 mg Calcium Carbonate (Oscal) 500 mg PO BID [facility] Last Admin: 10/05/18 12:06 Dose: 500 mg Docusate Sodium (Colace) 100 mg PO BID [facility] Last Admin: 10/05/18 09:59 Dose: 100 mg Heparin Sodium (Porcine) (Heparin) 5,000 units SC Q12 [facility]; Protocol Last Admin: 10/05/18 09:59 Dose: 5,000 units Hydromorphone HCl (Dilaudid 0.2 Mg/Ml Bank Accountant) 30 mls @ 0 mls/hr IV PRN PRN; Protocol 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 MD ORDER Last Admin: 10/05/18 09:07 Dose: 2.5 mls/hr Sodium Chloride (Sodium Chloride 0.9%) 1,000 mls @ 75 mls/hr IV .[id number] [facility] Last Admin: 10/04/18 17:19 Dose: 75 mls/hr Calcium Gluconate (Calcium Gluconate 1g/50ml Ns) 1 gm in 50 mls @ 50 mls/hr IV ONCE ONE Stop: 10/05/18 12:44 Last Admin: 10/05/18 12:06 Dose: 50 mls/hr Ipratropium [place] (Atrovent) 0.5 mg IH [id number] [facility] Last Admin: 10/05/18 08:02 Dose: Not Given Levalbuterol HCl (Xopenex) 0.63 mg IH TIDRESP [facility] Last Admin: 10/05/18 08:02 Dose: Not Given Lidocaine (Lidoderm) 1 ea TD DAILY [facility] Last Admin: 10/05/18 10:00 Dose: 1 ea Lidocaine (Lidoderm) 1 ea TD DAILY [facility] Methylprednisolone (Solu-Medrol) 20 mg IVP Q8 [facility] Last Admin: 10/05/18 05:04 Dose: 20 mg Pantoprazole Sodium (Protonix Inj) 40 mg IVP DAILY [facility] Last Admin: 10/05/18 09:59 Dose: 40 mg Polyethylene Glycol (Miralax) 17 gm PO TID [facility] Last Admin: 10/05/18 09:59 Dose: 17 gm Potassium Phos/Sodium Phos (Neutra-Phos) 2 pkt PO BID [facility] Last Admin: 10/05/18 09:59 Dose: 2 pkt Pregabalin (Lyrica) 50 mg PO BID [facility] Last Admin: 10/05/18 10:00 Dose: 50 mg Propranolol HCl (Inderal) 10 mg PO TID [facility] Last Admin: 10/05/18 10:00 Dose: 10 mg Tizanidine HCl (Zanaflex) 4 mg PO HS [facility] Last Admin: 10/04/18 21:05 Dose: 4 mg - Labs Labs: 10/05/18 08:30 10/05/18 08:30 - Constitutional Appears: Cachectic, Chronically Ill - Eye Exam Eye Exam: Normal appearance, PERRL - ENT Exam ENT Exam: Mucous Membranes Moist - Respiratory Exam Respiratory Exam: Decreased Breath Sounds, NORMAL BREATHING PATTERN - Cardiovascular Exam Cardiovascular Exam: REGULAR RHYTHM, +S1, +S2 - GI/Abdominal Exam GI & Abdominal Exam: Soft, Hypoactive Bowel Sounds - Extremities Exam Extremities Exam: Normal Capillary Refill - Back Exam Back Exam: vertebral tenderness - Neurological Exam Neurological Exam: Alert - Skin Skin Exam: Dry, Pallor, Warm Assessment and Plan - Assessment and Plan (Free Text) Assessment: 63 year old female with history of NSCL cancer,COPD, anemia, CKD who is admitted with intractable pain, anorexia, cachexia, deconditioning. Hypercalcemia,dehydration and fecal impaction are resolved. The patient wants to go home. She has not met with Dr Clements who is now her PCP. I explained that she is extremely weak not medically cleared for discharge. I expressed the importance of getting her pain control stabilized so that she could transition home. She states she is eating better, had a BM two days ago and feels ready to leave. She expressed that she is frustrated and angry because of the ups and downs she is experiencing while being hospitalized. She reaffirms that she wants to resume treatment. I acknowledged her distress and concerns, psychosocial support provided. Time spent in goals of care discussion, 30 minutes Plan: Goals of care Gomez management; Diluadid 0.5 mg/continuos infusion and ANODIC OPERATOR 0.5 q 20 minutes, Lyrica Continue Mirilax Dietary counseling PT/OT
--- NOTE | 2018-10-05 14:22 | PN ---
DATE: 10/05/2018 SUBJECTIVE: The patient is a 63-year-old female who was admitted on 09/23/[address] Anne's service. 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 The patient had been treated since 2017 for this. The patient had been undergoing chemotherapy in the past and has wanted to and does still want to continue with chemotherapy for as long as possible. The patient noted progressive worsening of low back pain. Therefore, she presented to the emergency room where she was admitted. After 12 days in the hospital, the patient decided to change primary care physicians. We received a call from Dr. Anne who turned over primary care to us. It is the first time I met the patient. However, my associate, Dr. Ángel Charles, apparently had some contact with the patient's in the distant past. PHYSICAL EXAMINATION: GENERAL: When seen, the patient is lying in bed. She is awake, alert, and oriented. She does say that she is having a bad morning today, however. She is simply feeling weak. She denies any pain. VITAL SIGNS: Blood pressure is 103/71, heart rate 86, and the patient is afebrile at 97.7 degrees Fahrenheit. CHEST: Her respirations appear to be easy. There is a port in the right anterior chest noted. HEART: Cardiac auscultation is regular. No murmurs are appreciated. LUNGS: Clear anteriorly and laterally. ABDOMEN: Soft and nontender. EXTREMITIES: Free of cyanosis, clubbing, or edema. NEUROLOGIC: The patient is awake, alert, and oriented with no focal neurological sign. LABORATORY DATA: This morning, laboratory shows a white blood cell count of 17.2, hemoglobin and hematocrit are 10 and 33 respectively, platelet count is 213. Sodium is 137, potassium is 5.9, blood urea nitrogen is 18, creatinine is 0.7, glucose is 115. The patient's blood and urine cultures have been negative so far. Her calcium is low at 6.8. ASSESSMENT AND PLAN: So, we will continue to follow this patient from medical point of view. Case to be discussed with Dr. Weller concerning further plans for palliative chemotherapy and the patient is to be reevaluated in the morning. Alfredo Charles MD
--- NOTE | 2018-10-05 14:39 | CON ---
DATE: 10/05/2018 NEUROLOGY CONSULTATION CHIEF COMPLAINT: Thoracolumbar pain HISTORY OF PRESENT ILLNESS: This is a 63-year-old woman with history of non-small cell lung cancer, COPD, anemia, chronic kidney disease, has a history of chemotherapy who came in for intractable pain in thoracolumbar area, left worse than right in addition to underlying anorexia, cachexia, deconditioning, hypercalcemia, dehydration, fecal impaction, which all resolved and was consulted for worsening thoracolumbar pain, radiating down the left side of the thoracolumbar area to the leg more than the right with paresthesias. Pain management also saw the patient on 10/01/2018, who recommended Lyrica 50 mg p.o. b.i.d., which we are going to increase to 75 mg b.i.d. with Lidoderm patch. There are features of myofascial pain as well. MRI of the thoracolumbosacral spine has been ordered. FAMILY HISTORY: Noncontributory. REVIEW OF SYSTEMS: A 14-point review of systems is negative except as per the HPI. PAST MEDICAL HISTORY: As above. PAST SURGICAL HISTORY: History of status post . ALLERGIES: NO KNOWN DRUG ALLERGIES. MEDICATIONS: Reviewed by nurses' reconciliation sheet. LABORATORY DATA: Sodium is 137, potassium 5.2, chloride 102, carbon dioxide 30, BUN of 18, creatinine 0.7, and random glucose of 113. Calcium level is 6.8, which is low. PHYSICAL EXAMINATION: GENERAL: The patient seen up in bed and has diffuse muscular waisting, cachectic and deconditioned looking. VITAL SIGNS: Temperature 97.7, pulse rate of 86, blood pressure 102/71, respiratory rate 18 and oxygen saturation 100% on room air. HEENT: Atraumatic and normocephalic. PERRLA. Extraocular muscles are intact. NECK: Supple. No JVD. No adenopathy noted. LUNGS: Decreased breath sounds bilaterally. HEART: S1 and S2. Normal rate and rhythm. No murmurs, rubs or gallops. ABDOMEN: Soft, nontender and nondistended. Bowel sounds are present. EXTREMITIES: No clubbing. No cyanosis. Peripheral pulses 2+ felt bilaterally. NEUROLOGIC: Defused muscle waisting throughout and deconditioned from underlying cancer. She is alert and oriented to person, place, month, and year. Speech is fluent without errors. Cranial nerves II through XII are intact. Motor exam; moves all extremities equally. No pronator drift seen. Sensory exam; decreased light touch to pinprick up to the calves bilaterally. Decreased vibration at the toes. DTRs are 2+ throughout and 1 at both knees and ankles. Coordination; [id number] intact. No dysmetria noted. MUSCULOSKELETAL: There is left paraspinal, cervical and thoraco paraspinal tightness as well as upper trapezius tightness as well as thoracolumbar and paraspinal tightness as well. IMPRESSION: Severe pain secondary to stage IV lung cancer with underlying myofascial pain superimposed underlying thoracolumbosacral disease. RECOMMENDATIONS: At this time we will recommend: 1. Follow with pain management with recommendations. 2. Increase Lyrica from 50 mg p.o. b.i.d. to 75 b.i.d. 3. Lidoderm patch to the area of pain, especially to the thoracolumbar area. 4. MRI of the metastatic degenerative disease seen there. 5. Physical therapy for thoracolumbar therapeutic exercises, myofascial pain therapy. Thank you for this consult. Sebastian Choudhury MD
--- NOTE | 2018-10-05 16:37 | PN ---
DATE: 10/05/2018 REFERRING PHYSICIAN: Araceli AMBROSIO,[place] SUBJECTIVE: The patient is seen sitting at bedside, in no acute distress. No overnight events reported. Reports she still gets short of breath. No coughing. Reports having some lower back pain, was started on fentanyl patch today. Past SHERIFF pump with Dilaudid ongoing. No headache, rhinitis, chest pain, abdominal pain, nausea, vomiting, diarrhea, leg pain or leg swelling reported. OBJECTIVE GENERAL: No acute distress. VITAL SIGNS: Blood pressure 103/71, pulse 86, temperature 97.7 and oxygen saturation 100%. HEENT: Moist mucous membranes. NECK: Supple. No JVD. LUNGS: Scattered rhonchi bilaterally. CARDIOVASCULAR: S1 and S2. ABDOMEN: Soft and nontender. No distention. No organomegaly. EXTREMITIES: No bilateral lower extremity edema. NEUROLOGIC: Awake, alert and verbal. Following commands. MEDICATIONS: Reviewed. Tylenol 650 mg every 6 hours p.r.n. mild pain, Xanax 0.25 mg every 4 hours p.r.n., Xanax 0.25 mg every 6 hours, calcium carbonate 500 mg twice a day, Colace 100 mg twice a day, fentanyl patch every 72 hours, heparin 5000 units subcutaneous every 12 hours, Dilaudid 0.2 mg via SHERIFF pump, Atrovent 0.5 mg inhalation every 6 hours, Xopenex 0.60 mg inhalation 3 times a day, lidocaine patch transdermal daily, Solu-Medrol 20 mg every 8 hours, Protonix 40 mg IV push daily, MiraLax 17 g 3 times a day, Neutra-Phos 2 packets twice a day, Lyrica 75 mg twice a day, Inderal 10 mg p.o. 3 times a day, sodium chloride 0.9% 1000 mL at 75 mL per hour and Zanaflex 4 mg at bedtime. LABORATORY DATA: Reviewed. WBC 17.2, RBC 3.5, hemoglobin 10, hematocrit 33, and platelets 213. Sodium 137, potassium 5.3, chloride 103, carbon dioxide 30, anion gap 10, BUN 18, creatinine 0.7, GFR greater than 60, random glucose 115, calcium 3.8, phosphorus 1.6, magnesium 1.7, total bilirubin 0.4, AST 28, ALT 12, alkaline phosphatase 97, total protein 6.4, albumin 3.1, globulin 3.3, and albumin-globulin ratio 0.9. Urinalysis shows urine protein 30, urine glucose 250, urine blood trace. Blood cultures preliminary, no growth after 3 days. IMPRESSION AND PLAN: Stage IV lung cancer, which is progressive, chronic obstructive lung disease, pulmonary hypertension, chronic renal insufficiency, left adrenal mass, attention deficit syndrome, anemia. The patient is currently on patient-controlled analgesia pump. Continue inhaled bronchodilators, supplemental oxygen, gastric prophylaxis, deep venous thrombosis prophylaxis. We will decrease Solu-Medrol to 20 mg every 12 hours. Need to follow up electrolytes closely. We will order labs for the morning. Fall precautions. Hematology and Oncology followup. Continue supportive care. Aspiration precautions. The patient was seen and examined with Dr. Hector. Discussed assessment and plan as described above. The patient was seen and examined with Derek Ellis, nurse practitioner. Discussed assessment and plan as described above. Thank you for this consult and we will follow with you. Derek Ellis APN Nikita Hector MD MTDGina
[2018-10-05 17:52] LABS: ALT/SGPT 10 U/L (7-56); AST/SGOT 22 U/L (14-36); BLOOD UREA NITROGEN 16 mg/dL (7-21); CALCIUM 7.1 mg/dL (8.4-10.5); GFR NON-AFRICAN AMERICAN > 60
[2018-10-05] MEDS: Sodium Chloride 0.9% 1,000 ML IV SCH (18:24)
--- NOTE | 2018-10-05 23:25 | PN ---
DATE: 10/05/2018 SUBJECTIVE: The patient seen in bed in no acute distress, nontoxic. Seen earlier. PHYSICAL EXAMINATION VITAL SIGNS: Temperature is 98, blood pressure is 120/70, respiratory rate of 16. HEENT: Unremarkable. NECK: Supple. LUNGS: Have decreased breath sounds. HEART: Normal S1, S2. ABDOMEN: Soft. LABORATORY EXAMINATION: Reveals a white count of 17,200, hemoglobin of 10. Chemistries reveals a BUN of 16, creatinine of 0.8. Microbiology reveals the blood cultures are negative. REVIEW OF ORDERS: Reveals the patient to be on Solu-Medrol, off of antibiotics. ASSESSMENT AND PLAN: This is a 63-year-old female who is chronically ill, cachectic and wasting syndrome, status post sepsis due to obstructive pneumonitis, case of lung cancer and sensitive Staphylococcus aureus bacteremia, history of left-sided healthcare associated pneumonia, neutropenia and currently off of antibiotics. The patient is at risk for developing nosocomial infections. Eliezer Stuart MD
[2018-10-06] MEDS: Ipratropium 0.02% Inhal Soln (0.5 mg/2.5 ml) UD IH SCH ×4 (01:31→19:23)
--- NOTE | 2018-10-06 02:59 | CP.PCM.PN ---
Subjective - Date & Time of Evaluation Date of Evaluation: 10/06/18 Time of Evaluation: 02:55 - Subjective Subjective: Seen at bedside. Moaning in pain, Had nausea/vomiting. Hanna dizzy. No other complaints. Meclizine was ordered. 63 year old woman admitted after fall at home. Has PMH of stage IV lung cancer, COPD,right renal biopsy,chest port placement. Objective - Vital Signs/Intake and Output Vital Signs (last 24 hours): Temp Pulse Resp BP Pulse Ox 98.2 F 104 H 18 108/73 92 L 10/05/18 17:01 10/05/18 17:01 10/05/18 17:01 10/05/18 17:01 10/05/18 17:01 Intake and Output: 10/05/18 10/06/18 18:59 06:59 Intake Total 37 Balance 37 - Medications Medications: Current Medications Acetaminophen (Tylenol 325mg Tab) 650 mg PO Q6H PRN PRN Reason: Pain, Mild (1-3) Last Admin: 09/28/18 12:30 Dose: 650 mg Alprazolam (Xanax) 0.25 mg PO Q4 PRN; Protocol PRN Reason: Anxiety Last Admin: 10/05/18 20:11 Dose: 0.25 mg Alprazolam (Xanax) 0.25 mg PO Q6 [facility]Z MARINA; Protocol Stop: 10/08/18 18:01 Last Admin: 10/06/18 00:26 Dose: Not Given Calcium Carbonate (Oscal) 500 mg PO BID [facility] Last Admin: 10/05/18 17:00 Dose: 500 mg Docusate Sodium (Colace) 100 mg PO BID [facility] Last Admin: 10/05/18 17:00 Dose: 100 mg Fentanyl (Duragesic) 1 patch TD Q72H [facility] Last Admin: 10/05/18 13:21 Dose: 1 patch Heparin Sodium (Porcine) (Heparin) 5,000 units SC Q12 LUZ MARINA; Protocol Last Admin: 10/05/18 22:34 Dose: 5,000 units Sodium Chloride (Sodium Chloride 0.9%) 1,000 mls @ 75 mls/hr IV .[id number] [facility] Last Admin: 10/05/18 18:24 Dose: 75 mls/hr Hydromorphone HCl (Dilaudid 0.2 Mg/Ml Repeat Photocomposing Machine Operator) 30 mls @ 0 mls/hr IV PRN PRN; Protocol PRN Reason: CHIEF UNDERWRITER PER MD ORDER Last Admin: 10/05/18 16:06 Dose: 2.5 mls/hr Ipratropium [place] (Atrovent) 0.5 mg IH [id number] [facility] Last Admin: 10/06/18 01:31 Dose: Not Given Levalbuterol HCl (Xopenex) 0.63 mg IH TIDRESP [facility] Last Admin: 10/05/18 19:57 Dose: Not Given Lidocaine (Lidoderm) 1 ea TD DAILY [facility] Last Admin: 10/05/18 10:00 Dose: 1 ea Lidocaine (Lidoderm) 1 ea TD DAILY [facility] Last Admin: 10/05/18 13:30 Dose: 1 ea Methylprednisolone (Solu-Medrol) 20 mg IVP Q12 [facility] Last Admin: 10/05/18 22:34 Dose: 20 mg Pantoprazole Sodium (Protonix Inj) 40 mg IVP DAILY [facility] Last Admin: 10/05/18 09:59 Dose: 40 mg Polyethylene Glycol (Miralax) 17 gm PO TID [facility] Last Admin: 10/05/18 17:00 Dose: 17 gm Potassium Phos/Sodium Phos (Neutra-Phos) 2 pkt PO BID [facility] Last Admin: 10/05/18 17:00 Dose: 2 pkt Pregabalin (Lyrica) 75 mg PO BID [facility] Last Admin: 10/05/18 17:00 Dose: 75 mg Propranolol HCl (Inderal) 10 mg PO TID [facility] Last Admin: 10/05/18 17:01 Dose: 10 mg Tizanidine HCl (Zanaflex) 4 mg PO HS [facility] Last Admin: 10/05/18 22:35 Dose: 4 mg - Labs Labs: 10/05/18 08:30 10/05/18 17:22 - Constitutional Appears: Well, No Acute Distress - Head Exam Head Exam: ATRAUMATIC, NORMAL INSPECTION, NORMOCEPHALIC - Eye Exam Eye Exam: Normal appearance - ENT Exam ENT Exam: Normal External Ear Exam - Neck Exam Neck Exam: Normal Inspection - Respiratory Exam Respiratory Exam: NORMAL BREATHING PATTERN - Cardiovascular Exam Cardiovascular Exam: absent: JVD - GI/Abdominal Exam GI & Abdominal Exam: absent: Distended - Rectal Exam Rectal Exam: Deferred - Exam Additional comments: Deferred. - Extremities Exam Extremities Exam: Normal Inspection - Back Exam Back Exam: NORMAL INSPECTION - Neurological Exam Neurological Exam: Altered - Psychiatric Exam Psychiatric exam: Depressed - Skin Skin Exam: Normal Color Assessment and Plan - Assessment and Plan (Free Text) Assessment: Dizziness. Nausea/vomiting. Stage IV lung cancer. COPD. S/P fall. Anemia. Leukocytosis. Hypocalcemia. Plan: Anivert as per order. Continue present management.
[2018-10-06] MEDS: HYDROmorphone 0.2 mg/ml (30ml) 30 ML IV PRN ×3 (04:43→17:40)
[2018-10-06 06:58] LABS: HEMOGLOBIN 10.1 g/dL (12.0-16.0); LYMPH # 0.3 (1.2-3.4); LYMPH % 2.3 % (22.0-35.0); MEAN CELL VOLUME 94.5 fl (80.0-105.0); MEAN CORPUSCULAR HEMOGLOBIN 27.7 pg (25.0-35.0); MEAN CORPUSCULAR HGB CONC 29.3 g/dl (31.0-37.0); MEAN PLATELET VOLUME 8.9 fl (7.0-11.0); MONO % 7.2 % (1.0-6.0); RBC 3.65 10^6/uL (3.5-6.1); RED CELL DISTRIBUTION WIDTH 18.5 % (11.5-14.5); WHITE BLOOD COUNT 14.2 10^3/uL (4.5-11.0)
[2018-10-06] MEDS: Levalbuterol 0.63 MG/3 ML Inhal Soln UD IH SCH ×3 (07:55→19:23)
[2018-10-06 08:01] LABS: ALT/SGPT 12 U/L (7-56); AST/SGOT 25 U/L (14-36); BLOOD UREA NITROGEN 15 mg/dL (7-21); CALCIUM 6.9 mg/dL (8.4-10.5); GFR NON-AFRICAN AMERICAN > 60
--- NOTE | 2018-10-06 08:31 | CP.PCM.PN ---
<Tyler Sales - Last Filed: 10/06/18 18:59> Subjective - Date & Time of Evaluation Date of Evaluation: 10/06/18 Time of Evaluation: 06:00 - Subjective Subjective: Tyler Sales Heme/Onc Progress Note for Dr. Weller Patient seen and evaluated bedside in AM. Patient complained of some nausea/vomiting overnight. Patient still complaining of intense back pain. Patient says she does not want radiation. Denies any other complaints. Objective - Vital Signs/Intake and Output Vital Signs (last 24 hours): Temp Pulse Resp BP Pulse Ox 98.1 F 109 H 19 112/74 98 10/06/18 08:03 10/06/18 08:03 10/06/18 08:03 10/06/18 08:03 10/06/18 08:03 Intake and Output: 10/06/18 10/06/18 06:59 18:59 Intake Total 150 Output Total 1200 Balance -1050 - Medications Medications: Current Medications Acetaminophen (Tylenol 325mg Tab) 650 mg PO Q6H PRN PRN Reason: Pain, Mild (1-3) Last Admin: 09/28/18 12:30 Dose: 650 mg Alprazolam (Xanax) 0.25 mg PO Q4 PRN; Protocol PRN Reason: Anxiety Last Admin: 10/05/18 20:11 Dose: 0.25 mg Alprazolam (Xanax) 0.25 mg PO Q6 LUZ MARINA; Protocol Stop: 10/08/18 18:01 Last Admin: 10/06/18 06:29 Dose: 0.25 mg Calcium Carbonate (Oscal) 500 mg PO BID [facility] Last Admin: 10/05/18 17:00 Dose: 500 mg Docusate Sodium (Colace) 100 mg PO BID [facility] Last Admin: 10/05/18 17:00 Dose: 100 mg Fentanyl (Duragesic) 1 patch TD Q72H [facility] Last Admin: 10/05/18 13:21 Dose: 1 patch Heparin Sodium (Porcine) (Heparin) 5,000 units SC Q12 [facility]Z MARINA; Protocol Last Admin: 10/05/18 22:34 Dose: 5,000 units Sodium Chloride (Sodium Chloride 0.9%) 1,000 mls @ 75 mls/hr IV .[id number] [facility] Last Admin: 10/05/18 18:24 Dose: 75 mls/hr Hydromorphone HCl (Dilaudid 0.2 Mg/Ml Circulation Representative) 30 mls @ 0 mls/hr IV PRN PRN; Protocol PRN Reason: COMPLIANCE PROGRAM MANAGER PER MD ORDER Last Admin: 10/06/18 04:43 Dose: 2.5 mls/hr Ipratropium [place] (Atrovent) 0.5 mg IH [id number] [facility] Last Admin: 10/06/18 07:54 Dose: 0.5 mg Levalbuterol HCl (Xopenex) 0.63 mg IH TIDRESP [facility] Last Admin: 10/06/18 07:55 Dose: 0.63 mg Lidocaine (Lidoderm) 1 ea TD DAILY [facility] Last Admin: 10/05/18 10:00 Dose: 1 ea Lidocaine (Lidoderm) 1 ea TD DAILY [facility] Last Admin: 10/05/18 13:30 Dose: 1 ea Methylprednisolone (Solu-Medrol) 20 mg IVP Q12 [facility] Last Admin: 10/05/18 22:34 Dose: 20 mg Pantoprazole Sodium (Protonix Inj) 40 mg IVP DAILY [facility] Last Admin: 10/05/18 09:59 Dose: 40 mg Polyethylene Glycol (Miralax) 17 gm PO TID [facility] Last Admin: 10/05/18 17:00 Dose: 17 gm Potassium Phos/Sodium Phos (Neutra-Phos) 2 pkt PO BID [facility] Last Admin: 10/05/18 17:00 Dose: 2 pkt Pregabalin (Lyrica) 75 mg PO BID [facility] Last Admin: 10/05/18 17:00 Dose: 75 mg Propranolol HCl (Inderal) 10 mg PO TID [facility] Last Admin: 10/05/18 17:01 Dose: 10 mg Tizanidine HCl (Zanaflex) 4 mg PO HS [facility] Last Admin: 10/05/18 22:35 Dose: 4 mg - Labs Labs: 10/06/18 06:30 10/06/18 06:30 - Constitutional Appears: Toxic - Head Exam Head Exam: ATRAUMATIC, NORMAL INSPECTION, NORMOCEPHALIC - Eye Exam Eye Exam: EOMI, Normal appearance - Respiratory Exam Respiratory Exam: Clear to Ausculation Bilateral, NORMAL BREATHING PATTERN - Cardiovascular Exam Cardiovascular Exam: REGULAR RHYTHM Assessment and Plan - Assessment and Plan (Free Text) Assessment: 63 female with a past medical history of COPD, CKD, 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 Plan: Plan -T12 lytic lesion -Ca 6.9, ionized calcium level 4.1 -Calcium BID -monitor Calcium level -pain control with fentanyl patch -dilaudid -Dr. Prabhakar, radiation onc consulted -Neurology following, Dr. Choudhury -MRI of lumbar and thoracic spine pending Explained to patient the need for MRI, patient now agreed after refusing As per social media director, patient is approved for Home Hospice with continuing treatments <Valorie Weller - Last Filed: 10/10/18 12:38> Objective - Vital Signs/Intake and Output Vital Signs (last 24 hours): Temp Pulse Resp BP Pulse Ox 98.2 F 77 18 120/70 100 10/09/18 13:57 10/09/18 17:57 10/09/18 13:57 10/09/18 17:57 10/09/18 06:00 - Medications Medications: Current Medications Acetaminophen (Tylenol 325mg Tab) 650 mg PO Q6H PRN PRN Reason: Pain, Mild (1-3) Last Admin: 09/28/18 12:30 Dose: 650 mg Alprazolam (Xanax) 0.25 mg PO Q4 PRN; Protocol PRN Reason: Anxiety Last Admin: 10/10/18 10:41 Dose: 0.25 mg Calcium Carbonate (Oscal) 500 mg PO BID [facility] Last Admin: 10/10/18 10:41 Dose: 500 mg Docusate Sodium (Colace) 100 mg PO BID [facility] Last Admin: 10/10/18 10:54 Dose: Not Given Fentanyl (Duragesic) 1 patch TD Q72H [facility] Last Admin: 10/08/18 17:18 Dose: Not Given Heparin Sodium (Porcine) (Heparin) 5,000 units SC Q12 [facility]; Protocol Last Admin: 10/10/18 11:04 Dose: 5,000 units Hydromorphone HCl (Dilaudid) 1 mg IVP Q2H PRN PRN Reason: Pain, severe (8-10) Last Admin: 10/10/18 10:59 Dose: 1 mg Sodium Chloride (Sodium Chloride 0.9%) 1,000 mls @ 75 mls/hr IV .[id number] [facility] Last Admin: 10/08/18 08:27 Dose: 75 mls/hr Hydromorphone HCl (Dilaudid 0.2 Mg/Ml Circulation Representative) 30 mls @ 5 mls/hr IV PRN PRN; Protocol PRN Reason: COMPLIANCE PROGRAM MANAGER PER MD ORDER Last Admin: 10/10/18 11:55 Dose: 5 mls/hr Lidocaine (Lidoderm) 1 ea TD DAILY [facility] Last Admin: 10/10/18 10:54 Dose: Not Given Lidocaine (Lidoderm) 1 ea TD DAILY [facility] Last Admin: 10/10/18 10:54 Dose: Not Given Methylprednisolone (Solu-Medrol) 20 mg IVP Q12 [facility] Last Admin: 10/10/18 10:41 Dose: 20 mg Pantoprazole Sodium (Protonix Ec Tab) 40 mg PO ACB [facility] Last Admin: 10/10/18 06:33 Dose: 40 mg Polyethylene Glycol (Miralax) 17 gm PO TID [facility] Last Admin: 10/10/18 10:54 Dose: Not Given Potassium Phos/Sodium Phos (Neutra-Phos) 2 pkt PO BID [facility] Last Admin: 10/10/18 11:19 Dose: Not Given Pregabalin (Lyrica) 75 mg PO BID [facility] Last Admin: 10/10/18 10:41 Dose: 75 mg Tizanidine HCl (Zanaflex) 4 mg PO HS [facility] Last Admin: 10/09/18 22:17 Dose: 4 mg - Labs Labs: 10/10/18 07:00 10/10/18 07:00 Attending/Attestation - Attestation I have personally seen and examined this patient.: Yes I have fully participated in the care of the patient.: Yes I have reviewed all pertinent clinical information, including history, physical exam and plan: Yes
[2018-10-06] MEDS: Sodium Chloride 0.9% 1,000 ML IV SCH ×2 (10:31→15:22)
[2018-10-06] MEDS: POLYETHYLENE GLYCOL 3350 17 GM/Dose PACKET PO SCH ×3 (10:43→18:13)
[2018-10-06] MEDS: MethylPREDNISolone 40 mg Vial IVP SCH ×2 (10:44→22:38)
[2018-10-06] MEDS: Lidocaine 5% Patch TD SCH ×2 (10:46)
[2018-10-06] MEDS: Potassium & Sodium Phosphate PO SCH ×2 (10:48→18:13)
--- NOTE | 2018-10-06 12:29 | PN ---
DATE: 10/06/2018 PULMONARY PROGRESS NOTE REFERRING PHYSICIAN: Ángel Charles MD SUBJECTIVE: The patient is seen lying in bed. No overnight events reported. Reports that she is having lower back pain. Had some dizziness last night and was given meclizine. No headache, rhinitis, chest pain, abdominal pain, nausea, vomiting, diarrhea, leg pain or leg swelling reported. The patient does report having shortness of breath. Cough improved. OBJECTIVE: GENERAL: No acute distress. VITAL SIGNS: Blood pressure 112/74, pulse 109, temperature 98, and oxygen saturation 98%. HEENT: Moist mucous membranes. NECK: Supple. No JVD. LUNGS: Scattered rhonchi bilaterally. CARDIOVASCULAR: S1 and S2. ABDOMEN: Soft and nontender. No distention. No organomegaly. EXTREMITIES: No bilateral lower extremity edema. NEUROLOGIC: Awake, alert and verbal. Following commands. MEDICATIONS: Reviewed. Tylenol 650 mg every 6 hours p.r.n. mild pain, Xanax 0.25 mg every 4 hours p.r.n., Xanax 0.25 mg p.o. every 6 hours, calcium carbonate 500 mg twice a day, Colace 100 mg twice a day, fentanyl patch every 72 hours, heparin 5000 units subcu every 12 hours, hydromorphone 0.2 mg via HYDROGEN POWER PLANT MANAGER pump, Atrovent 0.5 mg inhalation every 6 hours, Xopenex 0.63 mg inhalation three times a day, Lidoderm patch transdermal daily, Solu-Medrol 20 mg every 12 hours, Protonix 40 mg IV push daily, MiraLax 17 g three times a day, Neutra-Phos two packets twice a day, Lyrica 75 mg twice a day, propranolol 10 mg three times a day, sodium chloride 0.9% 1000 mL at 75 mL per hour and Zanaflex 4 mg at bedtime. LABORATORY DATA: Reviewed. WBC 14.2, RBC 3.65, hemoglobin 10.1, hematocrit 34.5, and platelets 195. Sodium 138, potassium 5, chloride 102, carbon dioxide 31, anion gap 10, BUN 15, creatinine 0.6, GFR greater than 60, random glucose 108, calcium 6.9, total bilirubin 0.4, AST 25, ALT 12, alkaline phosphatase 83, total protein 6.2, albumin 3, globulin 3.2, and albumin-globulin ratio 1. IMPRESSION AND PLAN: Stage IV lung cancer, progressive disease; chronic obstructive lung disease; pulmonary hypertension; anemia; chronic renal insufficiency; left adrenal mass; and attention deficit syndrome. The patient is on patient-controlled analgesia pump. Continue supplemental oxygen, gastric prophylaxis, deep venous thrombosis prophylaxis. Continue inhaled bronchodilators. Continue current steroid dosing. Fall precautions. Aspiration precautions. Continue supportive care. Hematology and Oncology followup. The patient was seen and examined with Dr. Hector. Discussed assessment and plan as described above. The patient was seen and examined with Derek Ellis, nurse practitioner. Discussed assessment and plan as described above. Thank you for this consult. We will follow with you. Derek Ellis APN Nkiita Hector MD
[2018-10-06] MEDS: HYDROmorphone 2 mg/ml ISec IVP PRN ×2 (15:13→21:14)
--- NOTE | 2018-10-06 17:00 | PN ---
DATE: 10/06/2018 SUBJECTIVE: The patient is in bed in no acute distress, nontoxic. PHYSICAL EXAMINATION: VITAL SIGNS: Temperature is 98, blood pressure is 112/70, respiratory rate of 18. HEENT: Unremarkable. NECK: Supple. LUNGS: Have decreased breath sounds. HEART: Normal S1 and S2. ABDOMEN: Soft. LABORATORY DATA: Laboratory examination reveals a white count of 14,200, hemoglobin of 10. Chemistries are noted. Urinalysis is noted. The patient's last procalcitonin was 0.13. Microbiology reveals the cultures are negative. MEDICATIONS: Review of orders reveals the patient to be off of antibiotics. ASSESSMENT AND PLAN: This is a 63-year-old female who is chronically ill, cachectic, wasting syndrome, status post sepsis with obstructive pneumonitis with lung cancer, had history of sensitive staph aureus bacteremia left-sided, healthcare associated pneumonia, has completed antibiotic therapy, currently off of antibiotics the patient is at risk for developing nosocomial infections. Eliezer Stuart MD
[2018-10-06] MEDS ORDERED: HYDROmorphone 1 mg/ml ISec IVP STA (17:14)
[2018-10-07] MEDS: HYDROmorphone 0.2 mg/ml (30ml) 30 ML IV PRN ×3 (00:09→18:46)
--- NOTE | 2018-10-07 00:37 | PN ---
DATE: 10/06/2018 The patient was seen this Friday. This is the first time I am seeing her as her attending physician. She is in bed, but uncomfortable with pain across the upper abdomen/low ribs and in the left shoulder that integrated circuits inspector her at times. I know Elsa from some 19 years ago when I cared for her who passed suddenly and unexpectedly. I also know her close childhood friend, Saray Rsoas, an REGIONAL SALES DIRECTOR, and former nurse from [facility] [employer]. I sat with the patient today and spoke a long time about her current condition and our options ahead of this and her wishes. We spoke about hospice and comfort measures. At this time, she is very concerned about her 17-year-old son who she had adopted some 7-10 years ago. She wants to get better, wants to live and is asking for aggressive treatment of her disease. She prefers not to need radiation because of side effects in the past but states if it will help her, it is important to her to do anything it takes to get better. So from my conversation with her today, it seems we are far from even considering such moves as hospice and focusing on comfort measures. We will discuss with Oncology. I discussed the case with marriage and family social worker and case management. I scheduled to talk to the patient's insurance carrier and a [id number] conversation tomorrow regarding discharge plans, and I will discuss with them at that time as well. Ángel Charles MD MTDGina
[2018-10-07] MEDS: HYDROmorphone 2 mg/ml ISec IVP PRN ×2 (02:04→11:34)
[2018-10-07] MEDS: Ipratropium 0.02% Inhal Soln (0.5 mg/2.5 ml) UD IH SCH ×3 (08:39→20:10)
[2018-10-07] MEDS: Levalbuterol 0.63 MG/3 ML Inhal Soln UD IH SCH ×4 (08:40→20:10)
--- NOTE | 2018-10-07 09:11 | CP.PCM.PN ---
<Tyler Sales - Last Filed: 10/07/18 14:17> Subjective - Date & Time of Evaluation Date of Evaluation: 10/07/18 Time of Evaluation: 06:00 - Subjective Subjective: Tyler Sales PGY2 Heme/Onc Progress Note for Dr. Weller Patient seen and evaluated bedside in AM. No acute issues overnight, Patient will under go MRI today. Still complaining of back pain. Objective - Vital Signs/Intake and Output Vital Signs (last 24 hours): Temp Pulse Resp BP Pulse Ox 98.3 F 99 H 16 102/64 100 10/06/18 16:59 10/06/18 18:14 10/06/18 17:40 10/06/18 18:14 10/06/18 16:59 Intake and Output: 10/07/18 10/07/18 06:59 18:59 Intake Total 90 30 Output Total 700 Balance -610 30 - Medications Medications: Current Medications Acetaminophen (Tylenol 325mg Tab) 650 mg PO Q6H PRN PRN Reason: Pain, Mild (1-3) Last Admin: 09/28/18 12:30 Dose: 650 mg Alprazolam (Xanax) 0.25 mg PO Q4 PRN; Protocol PRN Reason: Anxiety Last Admin: 10/05/18 20:11 Dose: 0.25 mg Alprazolam (Xanax) 0.25 mg PO Q6 [facility]Z MARINA; Protocol Stop: 10/08/18 18:01 Last Admin: 10/07/18 06:37 Dose: 0.25 mg Calcium Carbonate (Oscal) 500 mg PO BID [facility] Last Admin: 10/06/18 10:39 Dose: 500 mg Docusate Sodium (Colace) 100 mg PO BID [facility] Last Admin: 10/06/18 18:14 Dose: 100 mg Fentanyl (Duragesic) 1 patch TD Q72H [facility] Last Admin: 10/05/18 13:21 Dose: 1 patch Heparin Sodium (Porcine) (Heparin) 5,000 units SC Q12 [facility]; Protocol Last Admin: 10/06/18 22:38 Dose: 5,000 units Hydromorphone HCl (Dilaudid) 1 mg IVP Q3H PRN PRN Reason: Pain, severe (8-10) Last Admin: 10/07/18 02:04 Dose: 1 mg Sodium Chloride (Sodium Chloride 0.9%) 1,000 mls @ 75 mls/hr IV .[id number] [facility] Last Admin: 10/06/18 15:22 Dose: 75 mls/hr Hydromorphone HCl (Dilaudid 0.2 Mg/Ml Colon And Rectal Surgeon) 30 mls @ 0 mls/hr IV PRN PRN; Protocol PRN Reason: LIQUID HYDROGEN PLANT 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 MD ORDER Last Admin: 10/07/18 08:53 Dose: 3.75 mls/hr Ipratropium [place] (Atrovent) 0.5 mg IH [id number] [facility] Last Admin: 10/07/18 08:39 Dose: Not Given Levalbuterol HCl (Xopenex) 0.63 mg IH TIDRESP [facility] Last Admin: 10/07/18 08:40 Dose: Not Given Lidocaine (Lidoderm) 1 ea TD DAILY [facility] Last Admin: 10/06/18 10:46 Dose: 1 ea Lidocaine (Lidoderm) 1 ea TD DAILY [facility] Last Admin: 10/06/18 10:46 Dose: 1 ea Methylprednisolone (Solu-Medrol) 20 mg IVP Q12 [facility] Last Admin: 10/06/18 22:38 Dose: 20 mg Pantoprazole Sodium (Protonix Ec Tab) 40 mg PO ACB [facility] Polyethylene Glycol (Miralax) 17 gm PO TID [facility] Last Admin: 10/06/18 18:13 Dose: 17 gm Potassium Phos/Sodium Phos (Neutra-Phos) 2 pkt PO BID [facility] Last Admin: 10/06/18 18:13 Dose: 2 pkt Pregabalin (Lyrica) 75 mg PO BID [facility] Last Admin: 10/06/18 18:14 Dose: 75 mg Propranolol HCl (Inderal) 10 mg PO TID [facility] Last Admin: 10/06/18 18:14 Dose: 10 mg Tizanidine HCl (Zanaflex) 4 mg PO HS [facility] Last Admin: 10/06/18 22:38 Dose: 4 mg - Labs Labs: 10/06/18 06:30 10/06/18 06:30 - Constitutional Appears: Toxic - Eye Exam Eye Exam: Normal appearance - ENT Exam ENT Exam: Mucous Membranes Moist - Respiratory Exam Respiratory Exam: NORMAL BREATHING PATTERN - Cardiovascular Exam Cardiovascular Exam: +S1, +S2 - Neurological Exam Neurological Exam: Alert, Awake, Oriented x3 Assessment and Plan - Assessment and Plan (Free Text) Assessment: 63 female with a past medical history of COPD, CKD, 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 Plan: Plan -T12 lytic lesion -Calcium BID -monitor Calcium level -pain control with fentanyl patch -dilaudid -Dr. Prabhakar, radiation onc consulted -Neurology following, Dr. Choudhury -MRI of lumbar and thoracic spine pending As per certified social workers in health care, patient is approved for Home Hospice with continuing treatments <Valorie Weller - Last Filed: 10/10/18 12:33> Objective - Vital Signs/Intake and Output Vital Signs (last 24 hours): Temp Pulse Resp BP Pulse Ox 98.2 F 77 18 120/70 100 10/09/18 13:57 10/09/18 17:57 10/09/18 13:57 10/09/18 17:57 10/09/18 06:00 - Medications Medications: Current Medications Acetaminophen (Tylenol 325mg Tab) 650 mg PO Q6H PRN PRN Reason: Pain, Mild (1-3) Last Admin: 09/28/18 12:30 Dose: 650 mg Alprazolam (Xanax) 0.25 mg PO Q4 PRN; Protocol PRN Reason: Anxiety Last Admin: 10/10/18 10:41 Dose: 0.25 mg Calcium Carbonate (Oscal) 500 mg PO BID [facility] Last Admin: 10/10/18 10:41 Dose: 500 mg Docusate Sodium (Colace) 100 mg PO BID [facility] Last Admin: 10/10/18 10:54 Dose: Not Given Fentanyl (Duragesic) 1 patch TD Q72H [facility] Last Admin: 10/08/18 17:18 Dose: Not Given Heparin Sodium (Porcine) (Heparin) 5,000 units SC Q12 [facility]; Protocol Last Admin: 10/10/18 11:04 Dose: 5,000 units Hydromorphone HCl (Dilaudid) 1 mg IVP Q2H PRN PRN Reason: Pain, severe (8-10) Last Admin: 10/10/18 10:59 Dose: 1 mg Sodium Chloride (Sodium Chloride 0.9%) 1,000 mls @ 75 mls/hr IV .[id number] [facility] Last Admin: 04/25/19 08:27 Dose: 75 mls/hr Hydromorphone HCl (Dilaudid 0.2 Mg/Ml Colon And Rectal Surgeon) 30 mls @ 5 mls/hr IV PRN PRN; Protocol PRN Reason: LIQUID HYDROGEN PLANT 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 MD ORDER Last Admin: 10/10/18 11:55 Dose: 5 mls/hr Lidocaine (Lidoderm) 1 ea TD DAILY [facility] Last Admin: 10/10/18 10:54 Dose: Not Given Lidocaine (Lidoderm) 1 ea TD DAILY [facility] Last Admin: 10/10/18 10:54 Dose: Not Given Methylprednisolone (Solu-Medrol) 20 mg IVP Q12 [facility] Last Admin: 10/10/18 10:41 Dose: 20 mg Pantoprazole Sodium (Protonix Ec Tab) 40 mg PO ACB [facility] Last Admin: 10/10/18 06:33 Dose: 40 mg Polyethylene Glycol (Miralax) 17 gm PO TID [facility] Last Admin: 10/10/18 10:54 Dose: Not Given Potassium Phos/Sodium Phos (Neutra-Phos) 2 pkt PO BID [facility] Last Admin: 10/10/18 11:19 Dose: Not Given Pregabalin (Lyrica) 75 mg PO BID [facility] Last Admin: 10/10/18 10:41 Dose: 75 mg Tizanidine HCl (Zanaflex) 4 mg PO HS [facility] Last Admin: 10/09/18 22:17 Dose: 4 mg - Labs Labs: 10/10/18 07:00 10/10/18 07:00 Attending/Attestation - Attestation I have personally seen and examined this patient.: Yes I have fully participated in the care of the patient.: Yes I have reviewed all pertinent clinical information, including history, physical exam and plan: Yes
[2018-10-07] MEDS ORDERED: DiphenhydrAMINE 50 mg/ml Inj IVP STA ×2 (09:12→15:28)
[2018-10-07] MEDS: POLYETHYLENE GLYCOL 3350 17 GM/Dose PACKET PO SCH ×2 (11:37→15:00)
[2018-10-07] MEDS: Potassium & Sodium Phosphate PO SCH (11:37)
[2018-10-07] MEDS: Pantoprazole 40 mg EC Tab PO SCH (11:37)
[2018-10-07] MEDS: MethylPREDNISolone 40 mg Vial IVP SCH ×2 (11:39→21:43)
[2018-10-07] MEDS: Lidocaine 5% Patch TD SCH ×2 (11:39)
[2018-10-07] MEDS: HYDROmorphone 1 mg/ml ISec IVP PRN ×2 (14:23→18:42)
--- NOTE | 2018-10-07 15:23 | PN ---
DATE: 10/07/2018 PULMONARY PROGRESS NOTE REFERRING PHYSICIAN: Ángel Charles MD SUBJECTIVE: The patient is seen sitting up at bedside. Reports having some lower back pain. Reports getting short of breath, especially with exertion. No overnight events reported. No headache, rhinitis, cough, chest pain, abdominal pain, nausea, vomiting, diarrhea, leg pain or leg swelling reported. OBJECTIVE: GENERAL: No acute distress. VITAL SIGNS: Blood pressure 122/73, pulse 94, temperature 98.3, and oxygen saturation 100% on room air. HEENT: Moist mucous membranes. NECK: Supple. No JVD. LUNGS: Few scattered rhonchi bilaterally. CARDIOVASCULAR: S1 and S2. ABDOMEN: Soft and nontender. No distention. No organomegaly. EXTREMITIES: No bilateral lower extremity edema. NEUROLOGIC: Awake, alert and verbal. Following commands. MEDICATIONS: Reviewed. Tylenol 650 every 6 hours p.r.n. mild pain, Xanax 0.25 mg every 4 hours p.r.n., Xanax 0.25 mg every 6 hours, calcium carbonate 500 mg twice a day, Colace 100 mg twice a day, fentanyl patch every 72 hours, heparin 5000 units subcu every 12 hours, Dilaudid via REFINISH TECHNICIAN pump, Dilaudid 1 mg IV push every 3 hours p.r.n., Atrovent 0.5 mg inhalation every 6 hours, Xopenex 0.63 mg inhalation three times a day, Lidocaine patch transdermal daily, Solu-Medrol 20 mg every 12 hours, Protonix 40 mg a.c., MiraLax 17 g three times a day, Neutra-Phos two packets twice a day, Lyrica 75 mg twice a day, propranolol 10 mg three times a day, sodium chloride 0.9% a 1000 mL at 75 mL per hour and Zanaflex 4 mg p.o. at bedtime. LABORATORY DATA: Reviewed. No new labs since yesterday. IMPRESSION AND PLAN: Stage IV lung cancer, progressive disease; chronic obstructive lung disease; anemia; pulmonary hypertension; chronic renal insufficiency; attention deficit syndrome and left adrenal mass. Currently on patient-controlled analgesia pump. Continue gastric prophylaxis and deep venous thrombosis prophylaxis. Continue supplemental oxygen. Continue inhaled bronchodilators. Continue Oncology followup. We will refer to Oncology for pain management. Fall precautions. Aspiration precautions. Continue supportive care. This patient was seen and examined with Dr. Hector. Discussed assessment and plan as described above. This patient was seen and examined with Derek Ellis, nurse practitioner. Discussed assessment and plan as described above. Thank you for this consult and we will follow with you. Derek Ellis APN Nikita Hector MD
[2018-10-07 15:39] LABS: HEMOGLOBIN 10.4 g/dL (12.0-16.0); LYMPH # 0.4 (1.2-3.4); LYMPH % 1.9 % (22.0-35.0); MEAN CELL VOLUME 95.1 fl (80.0-105.0); MEAN CORPUSCULAR HEMOGLOBIN 28.2 pg (25.0-35.0); MEAN CORPUSCULAR HGB CONC 29.6 g/dl (31.0-37.0); MEAN PLATELET VOLUME 8.7 fl (7.0-11.0); MONO # 0.7 (0.1-0.6); MONO % 3.3 % (1.0-6.0); RBC 3.69 10^6/uL (3.5-6.1); RED CELL DISTRIBUTION WIDTH 18.4 % (11.5-14.5); WHITE BLOOD COUNT 20.1 10^3/uL (4.5-11.0)
--- NOTE | 2018-10-07 15:44 | PN ---
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 The patient has been under treatment since 2017. She recently transferred her care to our service. Dr Weller's note is greatly appreciated. She is seeking chemotherapeutic agents which would be best suited for the patient. As obtained the same time, the patient is to be evaluated for radiation therapy to the mass that has been found on T11. This seems to be a source of quite a bit of pain when seen today the patient is sitting up on chair. She is weaning over on to her bedside table on a pillow. She is quite uncomfortable from the pain. Her pain is to be adjusted. She is due for her next Dilaudid tablet. The patient once again expressed her feelings that everything to be done as aggressively is possible to help for survive this condition. She also ask that any treatment plan to be discussed with the patient as well as with the family. Alfredo Charles MD MTDGina
[2018-10-07 16:24] LABS: ALBUMIN 3.2 g/dL (3.0-4.8); ALT/SGPT 11 U/L (7-56); AST/SGOT 26 U/L (14-36); BLOOD UREA NITROGEN 17 mg/dL (7-21); CALCIUM 7.4 mg/dL (8.4-10.5); GFR NON-AFRICAN AMERICAN > 60
--- NOTE | 2018-10-07 16:35 | CP.PCM.PN ---
Subjective - Date & Time of Evaluation Date of Evaluation: 10/07/18 Time of Evaluation: 12:00 - Subjective Subjective: Spoke to Dr. Llamas, he told me he took over her care for Oncology. Objective - Vital Signs/Intake and Output Vital Signs (last 24 hours): Temp Pulse Resp BP Pulse Ox 98.3 F 90 16 122/89 100 10/06/18 16:59 10/07/18 15:01 10/06/18 17:40 10/07/18 15:01 10/06/18 16:59 Intake and Output: 10/07/18 10/07/18 06:59 18:59 Intake Total 90 30 Output Total 700 Balance -610 30 - Medications Medications: Current Medications Acetaminophen (Tylenol 325mg Tab) 650 mg PO Q6H PRN PRN Reason: Pain, Mild (1-3) Last Admin: 09/28/18 12:30 Dose: 650 mg Alprazolam (Xanax) 0.25 mg PO Q4 PRN; Protocol PRN Reason: Anxiety Last Admin: 10/05/18 20:11 Dose: 0.25 mg Alprazolam (Xanax) 0.25 mg PO Q6 [facility]; Protocol Stop: 10/08/18 18:01 Last Admin: 10/07/18 06:37 Dose: 0.25 mg Calcium Carbonate (Oscal) 500 mg PO BID [facility] Last Admin: 10/07/18 11:38 Dose: 500 mg Docusate Sodium (Colace) 100 mg PO BID [facility] Last Admin: 10/07/18 11:38 Dose: 100 mg Fentanyl (Duragesic) 1 patch TD Q72H [facility] Last Admin: 10/05/18 13:21 Dose: 1 patch Heparin Sodium (Porcine) (Heparin) 5,000 units SC Q12 [facility] MARINA; Protocol Last Admin: 10/07/18 11:38 Dose: 5,000 units Hydromorphone HCl (Dilaudid) 1 mg IVP Q3H PRN PRN Reason: Pain, severe (8-10) Last Admin: 10/07/18 14:23 Dose: 1 mg Sodium Chloride (Sodium Chloride 0.9%) 1,000 mls @ 75 mls/hr IV .[id number] [facility] Last Admin: 10/06/18 15:22 Dose: 75 mls/hr Hydromorphone HCl (Dilaudid 0.2 Mg/Ml K 9 Handler/ Deputy) 30 mls @ 0 mls/hr IV PRN PRN; Protocol PRN Reason: STREET RAILWAY LINE INSTALLER PER MD ORDER Last Admin: 10/07/18 08:53 Dose: 3.75 mls/hr Ipratropium [place] (Atrovent) 0.5 mg IH [id number] [facility] Last Admin: 10/07/18 13:14 Dose: Not Given Levalbuterol HCl (Xopenex) 0.63 mg IH TIDRESP [facility] Last Admin: 10/07/18 15:01 Dose: 0.63 mg Lidocaine (Lidoderm) 1 ea TD DAILY [facility] Last Admin: 10/07/18 11:39 Dose: 1 ea Lidocaine (Lidoderm) 1 ea TD DAILY [facility] Last Admin: 10/07/18 11:39 Dose: 1 ea Methylprednisolone (Solu-Medrol) 20 mg IVP Q12 [facility] Last Admin: 10/07/18 11:39 Dose: 20 mg Pantoprazole Sodium (Protonix Ec Tab) 40 mg PO ACB [facility] Last Admin: 10/07/18 11:37 Dose: 40 mg Polyethylene Glycol (Miralax) 17 gm PO TID [facility] Last Admin: 10/07/18 15:00 Dose: 17 gm Potassium Phos/Sodium Phos (Neutra-Phos) 2 pkt PO BID [facility] Last Admin: 10/07/18 11:37 Dose: 2 pkt Pregabalin (Lyrica) 75 mg PO BID [facility] Last Admin: 10/07/18 11:38 Dose: 75 mg Propranolol HCl (Inderal) 10 mg PO TID [facility] Last Admin: 10/07/18 15:01 Dose: 10 mg Tizanidine HCl (Zanaflex) 4 mg PO HS [facility] Last Admin: 10/06/18 22:38 Dose: 4 mg - Labs Labs: 10/07/18 15:30 10/07/18 15:30
--- NOTE | 2018-10-07 16:37 | CP.PCM.PCO ---
Physician Communication Note - Physician Communication Note Physician Communication Note: spoke to Dr. Llamas. he took over her Oncology Care.
[2018-10-07] MEDS: Sodium Chloride 0.9% 1,000 ML IV SCH (21:46)
--- NOTE | 2018-10-07 22:33 | PN ---
DATE: 10/07/2018 SUBJECTIVE: The patient is seen earlier today, no acute distress, nontoxic. PHYSICAL EXAMINATION: VITAL SIGNS: Temperature is 98, blood pressure is 120/70, respiratory rate of 18. HEENT: Unremarkable. NECK: Supple. LUNGS: Have decreased breath sounds. HEART: Normal S1 and S2. ABDOMEN: Soft. LABORATORY DATA: Reveals a white count of 20,000 and urinalysis is noted. Microbiology is reviewed. Dr. Wood's communication report is reviewed. ASSESSMENT AND PLAN: This is a 63-year-old female who is chronically ill, cachectic, wasting syndrome, status post sepsis with obstructive pneumonitis with lung cancer with sensitive Staphylococcus bacteremia, left-sided healthcare-associated pneumonia, has completed antibiotic therapy. The patient is scheduled for thoracic spine MRI today. We will follow with you. Eliezer Stuart MD
[2018-10-08] MEDS: HYDROmorphone 1 mg/ml ISec IVP PRN ×6 (00:41→15:45)
[2018-10-08] MEDS: Ipratropium 0.02% Inhal Soln (0.5 mg/2.5 ml) UD IH SCH ×5 (02:33→21:50)
[2018-10-08] MEDS: HYDROmorphone 0.2 mg/ml (30ml) 30 ML IV PRN ×3 (03:11→19:35)
[2018-10-08] MEDS: Levalbuterol 0.63 MG/3 ML Inhal Soln UD IH SCH ×3 (08:16→21:50)
[2018-10-08] MEDS: Sodium Chloride 0.9% 1,000 ML IV SCH ×5 (08:23→08:27)
[2018-10-08] MEDS: Pantoprazole 40 mg EC Tab PO SCH (08:23)
[2018-10-08 09:01] LABS: EOS % 0.1 % (1.5-5.0); HEMOGLOBIN 10.2 g/dL (12.0-16.0); LYMPH # 0.7 (1.2-3.4); LYMPH % 4.4 % (22.0-35.0); MEAN CELL VOLUME 95.3 fl (80.0-105.0); MEAN CORPUSCULAR HEMOGLOBIN 27.9 pg (25.0-35.0); MEAN CORPUSCULAR HGB CONC 29.3 g/dl (31.0-37.0); MEAN PLATELET VOLUME 8.9 fl (7.0-11.0); MONO # 1.1 (0.1-0.6); MONO % 6.7 % (1.0-6.0); PLATELET COUNT 204 10^3/uL (120.0-450.0); RBC 3.65 10^6/uL (3.5-6.1); RED CELL DISTRIBUTION WIDTH 18.5 % (11.5-14.5); WHITE BLOOD COUNT 16.4 10^3/uL (4.5-11.0)
--- NOTE | 2018-10-08 09:15 | CP.PCM.PN ---
<Tyler Sales - Last Filed: 10/08/18 20:29> Subjective - Date & Time of Evaluation Date of Evaluation: 10/08/18 Time of Evaluation: 06:00 - Subjective Subjective: Tyler Sales PGY2 Heme/Onc Progress Note for Dr. Weller Patient seen and evaluated bedside in AM. No acute issues overnight, Patient will under go lumbar MRI today. Still complaining of back pain. Pain medicine increased. Objective - Vital Signs/Intake and Output Vital Signs (last 24 hours): Temp Pulse Resp BP Pulse Ox 97.9 F 107 H 20 127/84 97 10/08/18 06:00 10/08/18 06:00 10/08/18 06:00 10/08/18 06:00 10/08/18 06:00 Intake and Output: 10/08/18 10/08/18 06:59 18:59 Intake Total 150 Output Total 400 Balance -250 - Medications Medications: Current Medications Acetaminophen (Tylenol 325mg Tab) 650 mg PO Q6H PRN PRN Reason: Pain, Mild (1-3) Last Admin: 09/28/18 12:30 Dose: 650 mg Alprazolam (Xanax) 0.25 mg PO Q4 PRN; Protocol PRN Reason: Anxiety Last Admin: 10/05/18 20:11 Dose: 0.25 mg Alprazolam (Xanax) 0.25 mg PO Q6 [facility]Z MARINA; Protocol Stop: 10/08/18 18:01 Last Admin: 10/08/18 05:49 Dose: 0.25 mg Calcium Carbonate (Oscal) 500 mg PO BID [facility] Last Admin: 10/07/18 19:38 Dose: Not Given Docusate Sodium (Colace) 100 mg PO BID [facility] Last Admin: 10/07/18 18:18 Dose: Not Given Fentanyl (Duragesic) 1 patch TD Q72H [facility] Last Admin: 10/05/18 13:21 Dose: 1 patch Heparin Sodium (Porcine) (Heparin) 5,000 units SC Q12 [facility]; Protocol Last Admin: 10/07/18 21:43 Dose: 5,000 units Hydromorphone HCl (Dilaudid) 1 mg IVP Q3H PRN PRN Reason: Pain, severe (8-10) Last Admin: 10/08/18 07:10 Dose: 1 mg Sodium Chloride (Sodium Chloride 0.9%) 1,000 mls @ 75 mls/hr IV .[id number] [facility] Last Admin: 10/08/18 08:27 Dose: 75 mls/hr Hydromorphone HCl (Dilaudid 0.2 Mg/Ml Insurance Claim Representative) 30 mls @ 0 mls/hr IV PRN PRN; Protocol PRN Reason: ARCHITECTURAL INTERN PER MD ORDER Last Admin: 10/08/18 03:11 Dose: 3.75 mls/hr Ipratropium [place] (Atrovent) 0.5 mg IH [id number] [facility] Last Admin: 10/08/18 08:16 Dose: Not Given Levalbuterol HCl (Xopenex) 0.63 mg IH TIDRESP [facility] Last Admin: 10/08/18 08:16 Dose: Not Given Lidocaine (Lidoderm) 1 ea TD DAILY [facility] Last Admin: 10/07/18 11:39 Dose: 1 ea Lidocaine (Lidoderm) 1 ea TD DAILY [facility] Last Admin: 10/07/18 11:39 Dose: 1 ea Methylprednisolone (Solu-Medrol) 20 mg IVP Q12 [facility] Last Admin: 10/07/18 21:43 Dose: 20 mg Pantoprazole Sodium (Protonix Ec Tab) 40 mg PO ACB [facility] Last Admin: 10/08/18 08:23 Dose: Not Given Polyethylene Glycol (Miralax) 17 gm PO TID [facility] Last Admin: 10/07/18 15:00 Dose: 17 gm Potassium Phos/Sodium Phos (Neutra-Phos) 2 pkt PO BID [facility] Last Admin: 10/07/18 11:37 Dose: 2 pkt Pregabalin (Lyrica) 75 mg PO BID [facility] Last Admin: 10/07/18 11:38 Dose: 75 mg Propranolol HCl (Inderal) 10 mg PO TID [facility] Last Admin: 10/07/18 15:01 Dose: 10 mg Tizanidine HCl (Zanaflex) 4 mg PO HS [facility] Last Admin: 10/07/18 21:43 Dose: 4 mg - Labs Labs: 10/08/18 08:45 10/07/18 15:30 - Constitutional Appears: Toxic, No Acute Distress - Head Exam Head Exam: ATRAUMATIC, NORMAL INSPECTION, NORMOCEPHALIC - Eye Exam Eye Exam: Normal appearance - Respiratory Exam Respiratory Exam: Clear to Ausculation Bilateral, NORMAL BREATHING PATTERN - Cardiovascular Exam Cardiovascular Exam: REGULAR RHYTHM Assessment and Plan - Assessment and Plan (Free Text) Assessment: 63 female with a past medical history of COPD, CKD, 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 Plan: Plan -Calcium BID -ARCHITECTURAL INTERN pump -monitor Calcium level -pain control with fentanyl patch -dilaudid -Dr. Prabhakar, radiation onc consulted -Neurology following, Dr. Choudhury -MRI of thoracic spine shows: 1. Findings are concerning for metastatic lesions in the T5 and L1 vertebral body without evidence for pathologic fracture. 2. Abnormal soft tissue mass involving the left posterior T9 and T10 ribs also concerning for metastasis. 3. Moderate left and small right pleural effusions. -lumbar MRI spine pending As per precast concrete ironworker, patient is approved for Home Hospice with continuing treatments <Valorie Weller - Last Filed: 10/10/18 12:25> Objective - Vital Signs/Intake and Output Vital Signs (last 24 hours): Temp Pulse Resp BP Pulse Ox 98.2 F 77 18 120/70 100 10/09/18 13:57 10/09/18 17:57 10/09/18 13:57 10/09/18 17:57 10/09/18 06:00 - Medications Medications: Current Medications Acetaminophen (Tylenol 325mg Tab) 650 mg PO Q6H PRN PRN Reason: Pain, Mild (1-3) Last Admin: 09/28/18 12:30 Dose: 650 mg Alprazolam (Xanax) 0.25 mg PO Q4 PRN; Protocol PRN Reason: Anxiety Last Admin: 10/10/18 10:41 Dose: 0.25 mg Calcium Carbonate (Oscal) 500 mg PO BID [facility] Last Admin: 10/10/18 10:41 Dose: 500 mg Docusate Sodium (Colace) 100 mg PO BID [facility] Last Admin: 10/10/18 10:54 Dose: Not Given Fentanyl (Duragesic) 1 patch TD Q72H [facility] Last Admin: 10/08/18 17:18 Dose: Not Given Heparin Sodium (Porcine) (Heparin) 5,000 units SC Q12 [facility]; Protocol Last Admin: 10/10/18 11:04 Dose: 5,000 units Hydromorphone HCl (Dilaudid) 1 mg IVP Q2H PRN PRN Reason: Pain, severe (8-10) Last Admin: 10/10/18 10:59 Dose: 1 mg Sodium Chloride (Sodium Chloride 0.9%) 1,000 mls @ 75 mls/hr IV .[id number] [facility] Last Admin: 10/08/18 08:27 Dose: 75 mls/hr Hydromorphone HCl (Dilaudid 0.2 Mg/Ml Insurance Claim Representative) 30 mls @ 5 mls/hr IV PRN PRN; Protocol PRN Reason: ARCHITECTURAL INTERN PER MD ORDER Last Admin: 10/10/18 11:55 Dose: 5 mls/hr Lidocaine (Lidoderm) 1 ea TD DAILY [facility] Last Admin: 10/10/18 10:54 Dose: Not Given Lidocaine (Lidoderm) 1 ea TD DAILY [facility] Last Admin: 10/10/18 10:54 Dose: Not Given Methylprednisolone (Solu-Medrol) 20 mg IVP Q12 [facility] Last Admin: 10/10/18 10:41 Dose: 20 mg Pantoprazole Sodium (Protonix Ec Tab) 40 mg PO ACB [facility] Last Admin: 10/10/18 06:33 Dose: 40 mg Polyethylene Glycol (Miralax) 17 gm PO TID [facility] Last Admin: 10/10/18 10:54 Dose: Not Given Potassium Phos/Sodium Phos (Neutra-Phos) 2 pkt PO BID [facility] Last Admin: 10/10/18 11:19 Dose: Not Given Pregabalin (Lyrica) 75 mg PO BID [facility] Last Admin: 10/10/18 10:41 Dose: 75 mg Tizanidine HCl (Zanaflex) 4 mg PO HS [facility] Last Admin: 10/09/18 22:17 Dose: 4 mg - Labs Labs: 10/10/18 07:00 10/10/18 07:00 Attending/Attestation - Attestation I have personally seen and examined this patient.: Yes I have fully participated in the care of the patient.: Yes I have reviewed all pertinent clinical information, including history, physical exam and plan: Yes
[2018-10-08 09:29] LABS: ALBUMIN 3.1 g/dL (3.0-4.8); ALT/SGPT 15 U/L (7-56); AST/SGOT 17 U/L (14-36); BLOOD UREA NITROGEN 15 mg/dL (7-21); CALCIUM 7.5 mg/dL (8.4-10.5); GFR NON-AFRICAN AMERICAN > 60
[2018-10-08] MEDS ORDERED: HYDROmorphone 0.2 mg/ml (30ml) 30 ML IV PRN (09:40)
[2018-10-08 09:52] LABS: ATYPICAL LYMPHOCYTE 1 % (0.0-0.0); LYMPHOCYTE 6 % (22.0-35.0); MONOCYTE 3 % (1.0-6.0); NEUTROPHIL 90 % (50.0-70.0)
[2018-10-08] MEDS: POLYETHYLENE GLYCOL 3350 17 GM/Dose PACKET PO SCH ×4 (11:02→17:15)
[2018-10-08] MEDS: Lidocaine 5% Patch TD SCH ×2 (11:02)
[2018-10-08] MEDS: MethylPREDNISolone 40 mg Vial IVP SCH ×2 (11:03→21:33)
[2018-10-08] MEDS: Potassium & Sodium Phosphate PO SCH ×3 (11:03→17:15)
--- NOTE | 2018-10-08 11:55 | MRI ---
Date of service: The 10/07/2018 PROCEDURE: MR THORACIC SPINE WITHOUT CONTRAST HISTORY: back pain COMPARISON: None available. TECHNIQUE: Multiecho multiplanar sequences were performed through the thoracic spine without the use of intravenous contrast. Examination is of suboptimal diagnostic quality due to motion degraded images. FINDINGS: ALIGNMENT: There is normal alignment of the thoracic vertebral bodies. There is normal thoracic kyphosis. VERTEBRA: Vertebral body height are preserved. MARROW: There is abnormal T1 hypointense and T2 hypointense and STIR hyperintense signal in the T5 vertebral body. There is also abnormal T1 hypointense and T2/stir hyperintense signal in the L1 vertebral body on the right and a large T2 hyperintense lesion in the central L1 vertebral body. PARASPINAL SOFT TISSUES: The thoracic cord is normal in contour, caliber and has normal intrinsic signal.. CORD: Unremarkable thoracic cord. No volume loss, signal abnormality or syrinx. DISCS: Multilevel disc degeneration with loss of T2 signal. No disc herniation, spinal canal stenosis, or neuroforaminal narrowing. OTHER FINDINGS: There is abnormal T1 hypointense and T2/stir hyperintense soft tissue mass in the left posterior 9th and 10th ribs. There is a moderate left pleural effusion. Small right pleural effusion. IMPRESSION: Suboptimal diagnostic quality due to motion degraded images. 1. Findings are concerning for metastatic lesions in the T5 and L1 vertebral body without evidence for pathologic fracture. 2. Abnormal soft tissue mass involving the left posterior T9 and T10 ribs also concerning for metastasis. 3. Moderate left and small right pleural effusions.
--- NOTE | 2018-10-08 12:27 | PN ---
DATE: 10/08/2018 PULMONARY PROGRESS NOTE REFERRING PHYSICIAN: Dr. Charles. SUBJECTIVE: The patient is seen lying in bed, friend is at bedside. States that she feels better today than she did yesterday, still has some pain, but she is doing better today. Reports still gets shortness of breath with exertion. No headache, rhinitis, cough, chest pain, nausea, vomiting, diarrhea, leg pain or leg swelling reported. OBJECTIVE: GENERAL: No acute distress. VITAL SIGNS: Blood pressure 127/84, pulse 107, temperature 97.9 and oxygen saturation 97%. HEENT: Moist mucous membranes. NECK: Supple. No JVD. LUNGS: Few scattered rhonchi bilaterally. CARDIOVASCULAR: S1 and S2. ABDOMEN: Soft and nontender. No distention. No organomegaly. EXTREMITIES: No bilateral lower extremity edema. NEUROLOGICAL: Awake,alert and verbal. Following commands. MEDICATIONS: Reviewed. Tylenol 650 mg every 6 hours p.r.n. for mild pain, Xanax 0.25 mg every 4 hours p.r.n., Xanax 0.25 mg every 6 hours, calcium carbonate 500 mg twice a day, Colace 100 mg twice a day, fentanyl patch every 72 hours, heparin 5000 units subcutaneously every 12 hours, Dilaudid 1 mg IV push every 2 hours p.r.n., Dilaudid via CUTTER BANANA ROOM pump, Atrovent 0.5 mg inhalation every 6 hours, Xopenex 0.63 mg inhalation 3 times a day, Lidoderm patch transdermal daily, Solu-Medrol 20 mg every 12 hours, Protonix 40 mg a.c., MiraLax 17 g 3 times a day, Neutra-Phos two packets twice a day, Lyrica 75 mg twice a day, propranolol 10 mg 3 times a day, sodium chloride 0.9% a 1000 mL at 75 mL per hour and Zanaflex 4 mg at bedtime. LABORATORY DATA: Reviewed. WBC 16.4, RBC 3.65, hemoglobin 10.2, hematocrit 34.8, and platelets 204. Sodium 138, potassium 4.7, chloride 101, carbon dioxide 31, anion gap 10, BUN 13, creatinine 0.7, GFR greater than 60, random glucose 117, calcium 7.5, total bilirubin 0.5, AST 17, ALT 15, alkaline phosphatase 82, total protein 6.2, albumin 3.1, globulin 3.2, and albumin-globulin ratio 1.0. Thoracic spine MRI report pending. IMPRESSION AND PLAN: Stage IV lung cancer, progressive disease, chronic obstructive lung disease, pulmonary hypertension, anemia, attention deficit syndrome, left adrenal mass and chronic renal insufficiency. Continue pain management, gastric prophylaxis and deep venous thrombosis prophylaxis. Continue supplemental oxygen. Continue inhaled bronchodilators, Oncology followup. Per clinical social work therapist's notes the patient has been accepted into compassionate care hospice services. The patient will be able to go home on hospice and will be able to get treatments with Oncology. Fall precautions. Continue supportive care. This patient was seen and examined with Dr. Hector. Discussed assessment and plan as described above. This patient was seen and examined with Derek Ellis nurse practitioner. Discussed assessment and plan as described above. Thank you for this consult and we will follow with you. Derek Ellis APN Nikita Hector MD
[2018-10-08] MEDS ORDERED: HYDROmorphone 1 mg/ml ISec IVP STA (14:54)
[2018-10-08] MEDS ORDERED: DiphenhydrAMINE 50 mg/ml Inj IVP STA (14:54)
[2018-10-08] MEDS ORDERED: HYDROmorphone 2 mg/ml ISec IVP ONE (15:00)
[2018-10-08] MEDS ORDERED: Gadodiamide 287 MG/ML VIAL (15ML) IV ONE (15:58)
--- NOTE | 2018-10-08 17:21 | PN ---
DATE: 10/08/2018 SUBJECTIVE: The patient was seen this morning in room 362, bed 2. Resting comfortably in bed with her lifetime friend, Saray, at the bedside. She is awake and clear, understands me but is in quite a bit of pain from the mid back. She is scheduled for an MRI today, part of it was done. She has an additional film of the lower lumbar spine to be done later. I had a [id number] physician discussion yesterday with a doctor from [facility] in [place]. The patient has what is referred to as enhanced hospice benefit which allows her to have the benefit of hospice care, counseling, and support for her and the family and yet continue acute care hospital stay, chemotherapy, radiation, etc. Today, I met with Damion from [facility] who will be meeting the patient and with the patient's brother and friend Saray and discuss their options. They will be bringing up the idea of DNR to the patient. I spoke with Saray that forms are available and I can provide her with them for her home to notify the paramedics or first responders of such a statement. We will wait the results of the MRI, considering local radiation if that area on the thoracic or lumbar spine area proves to be a metastatic disease versus a compression fracture. They will be talking and making a decision on home and hospice. Ángel Charles MD MTDGina
--- NOTE | 2018-10-08 18:02 | MRI ---
Date of service: 10/08/2018 PROCEDURE: MR LUMBAR SPINE WITH AND WITHOUT CONTRAST HISTORY: pain COMPARISON: None available. TECHNIQUE: Multiecho multiplanar sequences were performed through the lumbar spine with and without the use of intravenous contrast. FINDINGS: Levoscoliotic lumbar spinal deformity appears mild severity. Minimal grade 1 spondylolisthesis with L4 slightly anterior to L5 on the basis of degenerative spondylosis rather than spondylolysis (which is not identified). Vertebral body heights are preserved. Heterogeneous signal is appreciated with variable moderate to bright enhancement throughout the vertebral body. No additional suspicious lumbar spinal enhancement identified including intrathecal and epidural spaces overall. However, multifocal areas of diminished signal are identified at the bilateral sacral alae and also affect the medial left iliac bone. There is partial enhancement associated with the sacral findings with more definitive enhancement seen at the medial left iliac lesion. Both the L1 as well as sacral and left iliac bone findings are suggestive of metastasis there is a probable additional tiny metastasis at the right iliac bone as well. Conus medullaris unremarkable at the level of L1 upper endplate. Lumbar prevertebral and paraspinal soft tissues appear diffusely unremarkable. Incidental tiny cyst lower pole left kidney. T12-L1: No disc herniation, spinal canal stenosis or neural foraminal narrowing. L1-2: No disc herniation, spinal canal stenosis or neural foraminal narrowing. L2-3: No disc herniation, spinal canal stenosis or neural foraminal narrowing. L3-4: No disc herniation, spinal canal stenosis or neural foraminal narrowing. L4-5: Limited spondylolisthesis flattens the ventral thecal sac without significant stenosis of the central canal occurring. No significant neural foraminal stenosis bilaterally. No disc herniation. L5-S1: No disc herniation, spinal canal stenosis or neural foraminal narrowing. Minimal disc bulging appreciated posteriorly. OTHER FINDINGS: None. IMPRESSION: 1. Abnormal signal changes with enhancement at the lumbar spine are identified as well as at the bilateral medial visualized iliac bones and bilateral sacral ketan a suggest metastatic disease. No abnormal intrathecal or epidural enhancement appreciated. 2. No significant stenosis throughout the lumbar spine though minimal grade 1 spondylolisthesis at L4-5 (degenerative) flattens the ventral thecal sac. No disc herniation identified throughout. 3. Levoscoliotic lumbar spinal deformity a component of S-shaped thoracolumbar scoliosis.
--- NOTE | 2018-10-08 18:11 | CP.PCM.PN ---
Subjective - Date & Time of Evaluation Date of Evaluation: 10/08/18 Time of Evaluation: 16:00 - Subjective Subjective: complaining of mid back pain, rates a 10/10, movement exacerbates Objective - Vital Signs/Intake and Output Vital Signs (last 24 hours): Temp Pulse Resp BP Pulse Ox 97.9 F 107 H 20 127/84 97 10/08/18 06:00 10/08/18 06:00 10/08/18 06:00 10/08/18 06:00 10/08/18 06:00 Intake and Output: 10/08/18 10/08/18 06:59 18:59 Intake Total 150 Output Total 400 Balance -250 - Medications Medications: Current Medications Acetaminophen (Tylenol 325mg Tab) 650 mg PO Q6H PRN PRN Reason: Pain, Mild (1-3) Last Admin: 09/28/18 12:30 Dose: 650 mg Alprazolam (Xanax) 0.25 mg PO Q4 PRN; Protocol PRN Reason: Anxiety Last Admin: 10/05/18 20:11 Dose: 0.25 mg Calcium Carbonate (Oscal) 500 mg PO BID [facility] Last Admin: 10/08/18 17:15 Dose: Not Given Docusate Sodium (Colace) 100 mg PO BID [facility] Last Admin: 10/08/18 17:13 Dose: Not Given Fentanyl (Duragesic) 1 patch TD Q72H [facility] Last Admin: 10/08/18 17:18 Dose: Not Given Heparin Sodium (Porcine) (Heparin) 5,000 units SC Q12 [facility]; Protocol Last Admin: 10/08/18 11:02 Dose: 5,000 units Hydromorphone HCl (Dilaudid) 1 mg IVP Q2H PRN PRN Reason: Pain, severe (8-10) Last Admin: 10/08/18 15:45 Dose: 1 mg Sodium Chloride (Sodium Chloride 0.9%) 1,000 mls @ 75 mls/hr IV .[id number] [facility] Last Admin: 10/08/18 08:27 Dose: 75 mls/hr Hydromorphone HCl (Dilaudid 0.2 Mg/Ml Charge Attendant) 30 mls @ 5 mls/hr IV PRN PRN; Protocol PRN Reason: CHICKEN PICKER PER MD ORDER Last Admin: 10/08/18 11:51 Dose: 5 mls/hr Ipratropium [place] (Atrovent) 0.5 mg IH [id number] [facility] Last Admin: 10/08/18 14:01 Dose: Not Given Levalbuterol HCl (Xopenex) 0.63 mg IH TIDRESP [facility] Last Admin: 10/08/18 14:01 Dose: Not Given Lidocaine (Lidoderm) 1 ea TD DAILY [facility] Last Admin: 10/08/18 11:02 Dose: 1 ea Lidocaine (Lidoderm) 1 ea TD DAILY [facility] Last Admin: 10/08/18 11:02 Dose: 1 ea Methylprednisolone (Solu-Medrol) 20 mg IVP Q12 [facility] Last Admin: 10/08/18 11:03 Dose: 20 mg Pantoprazole Sodium (Protonix Ec Tab) 40 mg PO ACB [facility] Last Admin: 10/08/18 08:23 Dose: Not Given Polyethylene Glycol (Miralax) 17 gm PO TID [facility] Last Admin: 10/08/18 17:15 Dose: Not Given Potassium Phos/Sodium Phos (Neutra-Phos) 2 pkt PO BID [facility] Last Admin: 10/08/18 17:15 Dose: Not Given Pregabalin (Lyrica) 75 mg PO BID [facility] Last Admin: 10/08/18 17:15 Dose: Not Given Propranolol HCl (Inderal) 10 mg PO TID [facility] Last Admin: 10/08/18 17:15 Dose: Not Given Tizanidine HCl (Zanaflex) 4 mg PO HS [facility] Last Admin: 10/07/18 21:43 Dose: 4 mg - Labs Labs: 10/08/18 08:45 10/08/18 08:45 - Constitutional Appears: Cachectic, Chronically Ill - Head Exam Additional comments: cachectic - Eye Exam Eye Exam: Normal appearance, PERRL - ENT Exam ENT Exam: Mucous Membranes Moist - Cardiovascular Exam Cardiovascular Exam: REGULAR RHYTHM, +S1, +S2 - GI/Abdominal Exam GI & Abdominal Exam: Soft, Hypoactive Bowel Sounds - Extremities Exam Extremities Exam: Normal Capillary Refill - Back Exam Back Exam: vertebral tenderness - Neurological Exam Neurological Exam: Alert - Psychiatric Exam Psychiatric exam: Anxious - Skin Skin Exam: Dry, Pallor Assessment and Plan - Assessment and Plan (Free Text) Assessment: 63 year old female with history of NSCL cancer,COPD, anemia, CKD who is admitted with intractable pain, anorexia, cachexia, deconditioning. Thoracic spine MRI done earlier today,results as follows; metastatic lesions T5 and L1, no evidence of pathologic fracture. Abnormal soft tissue mass involving left posterior T9 and T10 ribs concerning for metastatic disease. The patient is in intractable pain despite increase in Dilaudid(1 mg/hr infusion) and Fentan yl to 50 mcg. She and her brother Claude met with [facility] lab[facility]. Patient is agreeable to having hospice care in conjunction with full treatment as her insurance plan allows. Hospice requested patient be DNR/DNI for GIP services. The patient spoke with Dr Weller, does not want DNR/DNI at this time. Hospice on hold. Patient now going for MRI of Lumbar spine> results pending. Pain and symptom management is priority unable to follow up with patient as she is in pain and on her way to MRI Plan: Goals of care Dilaudid increased to 1 mg/hr infusion, Fentnyl transdermal to 50mcg, Dilaudid 1 mg IVP for breakthrough. Bowel regimen MRI of lumbar spine pending Hospice evacuation
--- NOTE | 2018-10-08 18:12 | MRI ---
Date of service: 10/08/2018 PROCEDURE: MR THORACIC SPINE WITHOUT CONTRAST HISTORY: pain COMPARISON: Unenhanced thoracic spine MRI 10/07/2018. TECHNIQUE: Multiecho multiplanar sequences were performed through the thoracic spine without the use of intravenous contrast. FINDINGS: Interval post gadolinium enhanced imaging of the thoracic spine is identified indicating subtle enhancement limited to T5 vertebral body in a mildly inhomogeneous pattern. No definitive additional vertebral body enhancement is seen related. However, a left paraspinal mass (T8 through T10 level) is identified enhancing measuring 2.1 x 2.6 x 4.3 cm(transverse by anteroposterior by superoinferior dimensions) with both the T5 and this mass felt to be metastatic. Central canal appears widely patent throughout once again with no suspicious epidural or intrathecal enhancement identified. No definite interval disc herniation grossly evident. Motion artifacts degrade this examination significantly, particularly throughout the axial images submitted. OTHER FINDINGS: None. IMPRESSION: Mildly inhomogeneous enhancement at the T5 vertebral body is identified as well as enhancement within a 4.3 cm left paraspinal mass T8 through T10 level signal digestive of metastasis. No abnormal intrathecal or epidural enhancement with the thoracic spinal cord unremarkable once again.
--- NOTE | 2018-10-08 22:37 | PN ---
DATE: 10/08/2018 SUBJECTIVE: The patient is seen in bed, in no acute distress, and nontoxic. PHYSICAL EXAMINATION: VITAL SIGNS: Temperature is 97, blood pressure is 120/80, respiratory rate is 20, and heart rate is 98. HEENT: Unremarkable. NECK: Supple. LUNGS: Decreased breath sounds. HEART: Normal S1 and S2. ABDOMEN: Soft and nontender. LABORATORY DATA: Reveals the patient had an MRI of the spine and thoracic spine MRI. ASSESSMENT AND PLAN: This is a 63-year-old female who is chronically ill, cachectic, wasting syndrome, status post sepsis, obstructive pneumonitis, lung cancer, sensitive Staphylococcus bacteremia, currently off of antibiotics. The patient is at risk for developing nosocomial infections. Eliezer Stuart MD
[2018-10-09] MEDS: HYDROmorphone 1 mg/ml ISec IVP PRN ×8 (01:04→22:16)
[2018-10-09] MEDS: Ipratropium 0.02% Inhal Soln (0.5 mg/2.5 ml) UD IH SCH (01:04)
[2018-10-09 07:00] VITALS: O2SAT 100
[2018-10-09 07:18] LABS: HEMOGLOBIN 10.5 g/dL (12.0-16.0); LYMPH % 4.7 % (22.0-35.0); MEAN CELL VOLUME 94.1 fl (80.0-105.0); MEAN CORPUSCULAR HEMOGLOBIN 28.3 pg (25.0-35.0); MEAN CORPUSCULAR HGB CONC 30.1 g/dl (31.0-37.0); MEAN PLATELET VOLUME 8.8 fl (7.0-11.0); RBC 3.71 10^6/uL (3.5-6.1); RED CELL DISTRIBUTION WIDTH 18.4 % (11.5-14.5); WHITE BLOOD COUNT 20.3 10^3/uL (4.5-11.0)
[2018-10-09 07:40] LABS: ALBUMIN 3.1 g/dL (3.0-4.8); ALT/SGPT 13 U/L (7-56); AST/SGOT 33 U/L (14-36); BLOOD UREA NITROGEN 19 mg/dL (7-21); CALCIUM 8.4 mg/dL (8.4-10.5); GFR NON-AFRICAN AMERICAN > 60
[2018-10-09] MEDS: Pantoprazole 40 mg EC Tab PO SCH (08:09)
--- NOTE | 2018-10-09 09:59 | CP.PCM.PN ---
<Tyler Sales - Last Filed: 10/09/18 13:40> Subjective - Date & Time of Evaluation Date of Evaluation: 10/09/18 Time of Evaluation: 06:00 - Subjective Subjective: Tyler Sales PGY2 Heme/Onc Progress Note for Dr. Weller Patient seen and evaluated bedside in AM. No acute issues overnight. Still complaining of back pain 9/10 intensity. Objective - Vital Signs/Intake and Output Vital Signs (last 24 hours): Temp Pulse Resp BP Pulse Ox 98.1 F 122 H 20 110/76 100 10/09/18 06:00 10/09/18 06:00 10/09/18 06:00 10/09/18 06:00 10/09/18 06:00 Intake and Output: 10/09/18 10/09/18 06:59 18:59 Output Total 400 Balance -400 - Medications Medications: Current Medications Acetaminophen (Tylenol 325mg Tab) 650 mg PO Q6H PRN PRN Reason: Pain, Mild (1-3) Last Admin: 09/28/18 12:30 Dose: 650 mg Alprazolam (Xanax) 0.25 mg PO Q4 PRN; Protocol PRN Reason: Anxiety Last Admin: 10/05/18 20:11 Dose: 0.25 mg Calcium Carbonate (Oscal) 500 mg PO BID [facility] Last Admin: 10/08/18 17:15 Dose: Not Given Docusate Sodium (Colace) 100 mg PO BID [facility] Last Admin: 10/08/18 17:13 Dose: Not Given Fentanyl (Duragesic) 1 patch TD Q72H [facility] Last Admin: 10/08/18 17:18 Dose: Not Given Heparin Sodium (Porcine) (Heparin) 5,000 units SC Q12 [facility]; Protocol Last Admin: 10/08/18 21:34 Dose: 5,000 units Hydromorphone HCl (Dilaudid) 1 mg IVP Q2H PRN PRN Reason: Pain, severe (8-10) Last Admin: 10/09/18 08:08 Dose: 1 mg Sodium Chloride (Sodium Chloride 0.9%) 1,000 mls @ 75 mls/hr IV .[id number] [facility] Last Admin: 10/08/18 08:27 Dose: 75 mls/hr Hydromorphone HCl (Dilaudid 0.2 Mg/Ml Radiological Technologist) 30 mls @ 5 mls/hr IV PRN PRN; Protocol PRN Reason: CAMPUS MANAGER PER MD ORDER Last Admin: 10/08/18 19:35 Dose: 5 mls/hr Lidocaine (Lidoderm) 1 ea TD DAILY [facility] Last Admin: 10/08/18 11:02 Dose: 1 ea Lidocaine (Lidoderm) 1 ea TD DAILY [facility] Last Admin: 10/08/18 11:02 Dose: 1 ea Methylprednisolone (Solu-Medrol) 20 mg IVP Q12 [facility] Last Admin: 10/08/18 21:33 Dose: 20 mg Pantoprazole Sodium (Protonix Ec Tab) 40 mg PO ACB [facility] Last Admin: 10/09/18 08:09 Dose: 40 mg Polyethylene Glycol (Miralax) 17 gm PO TID [facility] Last Admin: 10/08/18 17:15 Dose: Not Given Potassium Phos/Sodium Phos (Neutra-Phos) 2 pkt PO BID [facility] Last Admin: 10/08/18 17:15 Dose: Not Given Pregabalin (Lyrica) 75 mg PO BID [facility] Last Admin: 10/08/18 17:15 Dose: Not Given Propranolol HCl (Inderal) 10 mg PO TID [facility] Last Admin: 10/08/18 17:15 Dose: Not Given Tizanidine HCl (Zanaflex) 4 mg PO HS [facility] Last Admin: 10/08/18 21:35 Dose: Not Given - Labs Labs: 10/09/18 07:00 10/09/18 07:00 - Constitutional Appears: Toxic - Head Exam Head Exam: ATRAUMATIC, NORMAL INSPECTION, NORMOCEPHALIC - Eye Exam Eye Exam: EOMI, Normal appearance - ENT Exam ENT Exam: Mucous Membranes Moist - Respiratory Exam Respiratory Exam: Clear to Ausculation Bilateral, NORMAL BREATHING PATTERN - Cardiovascular Exam Cardiovascular Exam: REGULAR RHYTHM - Neurological Exam Neurological Exam: Alert, Awake, Oriented x3 Assessment and Plan - Assessment and Plan (Free Text) Assessment: 63 female with a past medical history of COPD, CKD, 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 Plan: Metastatic Lung CA -Calcium BID -CAMPUS MANAGER pump -monitor Calcium level -pain control with fentanyl patch -dilaudid -Dr. Prabhakar, radiation onc consulted -Neurology following, Dr. Kei, follow recs -MRI of thoracic spine shows: 1. Findings are concerning for metastatic lesions in the T5 and L1 vertebral body without evidence for pathologic fracture. 2. Abnormal soft tissue mass involving the left posterior T9 and T10 ribs also concerning for metastasis. 3. Moderate left and small right pleural effusions. Thoracic Spine MRI 10/08/18 14:22 IMPRESSION: Mildly inhomogeneous enhancement at the T5 vertebral body is identified as well as enhancement within a 4.3 cm left paraspinal mass T8 through T10 level signal digestive of metastasis. No abnormal intrathecal or epidural enhancement with the thoracic spinal cord unremarkable once again. Lumbar Spine MRI 10/08/18 14:23 IMPRESSION: 1. Abnormal signal changes with enhancement at the lumbar spine are identified as well as at the bilateral medial visualized iliac bones and bilateral sacral ketan a suggest metastatic disease. No abnormal intrathecal or epidural enhancement appreciated. 2. No significant stenosis throughout the lumbar spine though minimal grade 1 spondylolisthesis at L4-5 (degenerative) flattens the ventral thecal sac. No disc herniation identified throughout. 3. Levoscoliotic lumbar spinal deformity a component of S-shaped thoracolumbar scoliosis. As per family welfare social work professor, patient is approved for Home Hospice with continuing treatments <Valorie Weller - Last Filed: 10/10/18 12:14> Objective - Vital Signs/Intake and Output Vital Signs (last 24 hours): Temp Pulse Resp BP Pulse Ox 98.2 F 77 18 120/70 100 10/09/18 13:57 10/09/18 17:57 10/09/18 13:57 10/09/18 17:57 10/09/18 06:00 - Medications Medications: Current Medications Acetaminophen (Tylenol 325mg Tab) 650 mg PO Q6H PRN PRN Reason: Pain, Mild (1-3) Last Admin: 09/28/18 12:30 Dose: 650 mg Alprazolam (Xanax) 0.25 mg PO Q4 PRN; Protocol PRN Reason: Anxiety Last Admin: 10/10/18 10:41 Dose: 0.25 mg Calcium Carbonate (Oscal) 500 mg PO BID [facility] Last Admin: 10/10/18 10:41 Dose: 500 mg Docusate Sodium (Colace) 100 mg PO BID [facility] Last Admin: 10/10/18 10:54 Dose: Not Given Fentanyl (Duragesic) 1 patch TD Q72H [facility] Last Admin: 10/08/18 17:18 Dose: Not Given Heparin Sodium (Porcine) (Heparin) 5,000 units SC Q12 [facility]; Protocol Last Admin: 10/10/18 11:04 Dose: 5,000 units Hydromorphone HCl (Dilaudid) 1 mg IVP Q2H PRN PRN Reason: Pain, severe (8-10) Last Admin: 10/10/18 10:59 Dose: 1 mg Sodium Chloride (Sodium Chloride 0.9%) 1,000 mls @ 75 mls/hr IV .[id number] [facility] Last Admin: 10/08/18 08:27 Dose: 75 mls/hr Hydromorphone HCl (Dilaudid 0.2 Mg/Ml Radiological Technologist) 30 mls @ 5 mls/hr IV PRN PRN; Protocol PRN Reason: CAMPUS MANAGER PER MD ORDER Last Admin: 10/10/18 11:55 Dose: 5 mls/hr Lidocaine (Lidoderm) 1 ea TD DAILY [facility] Last Admin: 10/10/18 10:54 Dose: Not Given Lidocaine (Lidoderm) 1 ea TD DAILY [facility] Last Admin: 10/10/18 10:54 Dose: Not Given Methylprednisolone (Solu-Medrol) 20 mg IVP Q12 [facility] Last Admin: 10/10/18 10:41 Dose: 20 mg Pantoprazole Sodium (Protonix Ec Tab) 40 mg PO ACB [facility] Last Admin: 10/10/18 06:33 Dose: 40 mg Polyethylene Glycol (Miralax) 17 gm PO TID [facility] Last Admin: 10/10/18 10:54 Dose: Not Given Potassium Phos/Sodium Phos (Neutra-Phos) 2 pkt PO BID [facility] Last Admin: 10/10/18 11:19 Dose: Not Given Pregabalin (Lyrica) 75 mg PO BID [facility] Last Admin: 10/10/18 10:41 Dose: 75 mg Tizanidine HCl (Zanaflex) 4 mg PO HS [facility] Last Admin: 10/09/18 22:17 Dose: 4 mg - Labs Labs: 10/10/18 07:00 10/10/18 07:00 Assessment and Plan - Assessment and Plan (Free Text) Plan: As stated above patient has evidence of mets to t spine with encroachment on the nerve roots accounting for the severe 9/10 Pain patient is currently experiencing.I spoke to Rad Onc and plan is for palliative xrt to the affected areas to alleviate pain. to check the prior radiation portals prior to initiation of therapy
[2018-10-09] MEDS: Lidocaine 5% Patch TD SCH ×2 (10:50)
[2018-10-09] MEDS: POLYETHYLENE GLYCOL 3350 17 GM/Dose PACKET PO SCH ×3 (10:52→17:59)
[2018-10-09] MEDS: Potassium & Sodium Phosphate PO SCH ×2 (10:52→17:59)
[2018-10-09] MEDS: MethylPREDNISolone 40 mg Vial IVP SCH ×2 (10:52→22:17)
--- NOTE | 2018-10-09 12:58 | PN ---
DATE: 10/09/2018 PULMONARY PROGRESS NOTE REFERRING PHYSICIAN: Dr. Charles. SUBJECTIVE: The patient is seen lying in bed, reports having back pain, was recently medicated by nursing staff. Still has shortness of breath with exertion. No headache, rhinitis, cough, chest pain, abdominal pain, nausea, vomiting, diarrhea, leg pain or leg swelling reported. OBJECTIVE: GENERAL: No acute distress. VITAL SIGNS: Blood pressure 110/76, temperature 98.1 and oxygen saturation 100%, pulse 90. HEENT: Moist mucous membranes. NECK: Supple. No JVD. RESPIRATORY: Decreased breath sounds. Few scattered rhonchi. CARDIOVASCULAR: S1 and S2. ABDOMEN: Soft and nontender. No distention. No organomegaly. EXTREMITIES: No bilateral lower extremity edema. NEUROLOGIC: Awake,alert and verbal. Following commands. MEDICATIONS: Reviewed. Tylenol 650 mg every 6 hours p.r.n. mild pain, Xanax 0.25 mg every 4 hours p.r.n., calcium carbonate 500 mg twice a day, Colace 100 mg twice a day, fentanyl patch transdermal every 72 hours, heparin 5000 units subcu every 12 hours, Dilaudid 1 mg IV push every 2 hours p.r.n., Dilaudid 0.2 mg via MANAGER ENTERPRISE pump, lidocaine patch transdermal daily, Solu-Medrol 20 mg IV push every 12 hours, Protonix 40 mg a.c., MiraLax 17 g three times a day, Lyrica 75 mg twice a day, Inderal 10 mg three times a day, sodium chloride 0.9%, 1000 mL at 75 mL per hour and Zanaflex 4 mg at bedtime. LABORATORY DATA: Reviewed. WBC 20.3, RBC 3.71, hemoglobin 10.5, hematocrit 34.9, and platelets 192. Sodium 137, potassium 4.7, chloride 100, carbon dioxide 31, anion gap 11, BUN 19, creatinine 0.8, GFR greater than 60, random glucose 88, calcium 8.4, total bilirubin 0.6, AST 33, ALT 13, alkaline phosphatase 83, total protein 6.3, albumin 3.1, globulin 3.2, and albumin-globulin ratio 1. Lumbar spine MRI showed abnormal signal changes with enhancement of the lumbar spine as well as at the bilateral medial visualized iliac bones and bilateral sacral ala suggesting metastatic disease, minimal grade 1 spondylolisthesis at L4 to L5, levoscoliotic lumbar spinal deformity of S-shaped thoracolumbar scoliosis. Thoracic spine MRI shows mild inhomogeneous enhancement at the T5 vertebral body as well as enhancement within a 4.3 cm left paraspinal mass T8 through T10 level suggestive of metastasis. IMPRESSION AND PLAN: Stage IV lung cancer, progressive disease, chronic obstructive lung disease, pulmonary hypertension, anemia, left adrenal mass, chronic renal insufficiency, and attention deficit syndrome. MRI results reviewed and appreciated. Continue pain management per Oncology. Continue gastric prophylaxis and deep venous thrombosis prophylaxis. The patient appears stable from pulmonary point of view. Continue supplemental oxygen and inhaled bronchodilators. Fall precaution. Continue supportive care. The patient was seen and examined with Dr. Hector. Discussed assessment and plan as described above. This patient was seen and examined with Derek Ellis, nurse practitioner. Discussed assessment and plan as described above. Thank you for this consult. We will follow with you. Derek Ellis APN Nikita Hector MD
[2018-10-09] MEDS: HYDROmorphone 0.2 mg/ml (30ml) 30 ML IV PRN (22:39)
--- NOTE | 2018-10-10 00:22 | PN ---
DATE: 10/09/2018 SUBJECTIVE: The patient is seen in bed, in no acute distress, nontoxic, and was seen earlier this morning in room 362, bed 2. OBJECTIVE: VITAL SIGNS: Temperature of 98, blood pressure is 107/60, respiratory rate of 18, and heart rate of 110. HEENT: Unremarkable. NECK: Supple. LUNGS: Have decreased breath sounds. HEART: Normal S1 and S2. ABDOMEN: Soft and nontender. LABORATORY EXAMINATION: Reveals a white count of 20,000, hemoglobin of 10, BUN of 19, and creatinine of 0.8. Blood cultures are negative. Urine cultures are negative. ASSESSMENT AND PLAN: This is a 63-year-old female who is chronically ill and cachectic, wasting syndrome, status post sepsis, obstructive pneumonitis, lung cancer, sensitive Staphylococcus aureus bacteremia, is completed antibiotic therapy and currently off of antibiotics. The patient is at risk for developing nosocomial infections. She has metastatic lung cancer and the patient is on Solu-Medrol. Eliezer Stuart MD
[2018-10-10] MEDS: HYDROmorphone 1 mg/ml ISec IVP PRN ×5 (02:04→13:49)
[2018-10-10] MEDS: HYDROmorphone 0.2 mg/ml (30ml) 30 ML IV PRN ×2 (05:04→11:55)
[2018-10-10] MEDS: Pantoprazole 40 mg EC Tab PO SCH (06:33)
[2018-10-10 08:01] LABS: HEMOGLOBIN 9.9 g/dL (12.0-16.0); LYMPH # 0.5 (1.2-3.4); LYMPH % 2.4 % (22.0-35.0); MEAN CELL VOLUME 93.8 fl (80.0-105.0); MEAN CORPUSCULAR HEMOGLOBIN 28.1 pg (25.0-35.0); MEAN PLATELET VOLUME 9.4 fl (7.0-11.0); MONO # 0.7 (0.1-0.6); MONO % 3.5 % (1.0-6.0); RBC 3.52 10^6/uL (3.5-6.1); RED CELL DISTRIBUTION WIDTH 18.5 % (11.5-14.5); WHITE BLOOD COUNT 20.3 10^3/uL (4.5-11.0)
[2018-10-10 08:28] LABS: ALB/GLOB RATIO 0.9 (1.1-1.8); ALBUMIN 2.9 g/dL (3.0-4.8); ALT/SGPT 19 U/L (7-56); AST/SGOT 21 U/L (14-36); BLOOD UREA NITROGEN 18 mg/dL (7-21); CALCIUM 8.3 mg/dL (8.4-10.5); GFR NON-AFRICAN AMERICAN > 60
[2018-10-10] MEDS: MethylPREDNISolone 40 mg Vial IVP SCH (10:41)
[2018-10-10] MEDS: POLYETHYLENE GLYCOL 3350 17 GM/Dose PACKET PO SCH ×3 (10:54→17:17)
[2018-10-10] MEDS: Lidocaine 5% Patch TD SCH ×2 (10:54)
[2018-10-10] MEDS: Potassium & Sodium Phosphate PO SCH ×2 (11:19→17:17)
[2018-10-10] MEDS: Sodium Chloride 0.9% 1,000 ML IV SCH (13:01)
[2018-10-10] MEDS ORDERED: Sodium Chloride 0.9% 1,000 ML IV SCH (14:34)
[2018-10-10] MEDS ORDERED: HYDROmorphone 2 mg/ml ISec IVP STA (15:31)
[2018-10-10] MEDS ORDERED: HYDROmorphone 2 mg/ml ISec IVP PRN (15:32)
[2018-10-10] MEDS ORDERED: HYDROmorphone 0.2 mg/ml (30ml) 30 ML IV PRN (15:38)
--- NOTE | 2018-10-10 15:42 | PN ---
DATE: 10/10/2018 PULMONARY PROGRESS NOTE REFERRING PHYSICIAN: Ángel Charles MD SUBJECTIVE: The patient is seen on bed to chair. Brothers and friends are bed side. Overall, feels better. Has mostly low back sacral area pain. No cough. No sputum production. Short of breath with exertion. No nausea. No vomiting. No leg swelling. OBJECTIVE: GENERAL: No acute distress. VITAL SIGNS: Temperature is 98, heart is 77, respiratory rate is 18, blood pressure 120/70, pulse ox 98% on 3 liters nasal cannula. HEENT: Moist mucous membranes. No ulcer or thrush noted. NECK: Supple. No JVD. LUNGS: Have fair airflow with rhonchi. HEART: S1 and S2. ABDOMEN: Soft and nontender. No organomegaly. EXTREMITIES: No edema. NEUROLOGIC: Awake and alert. Follow simple commands. MEDICATIONS: Colace 100 mg twice a day, Dilaudid 1 mg every 2 hours p.r.n. also Dilaudid PCR pump, Duragesic patch every 72 hour, heparin 5000 units subcu every 12 hours, Lidocaine patch daily, also Lyrica 75 mg twice a day, MiraLax p.r.n. basis, Neutra-Phos 500 mg twice a day, Protonix 40 mg daily, IV fluid normal saline 75 mL/hour, Solu-Medrol 20 mg every 12 hours, Tylenol p.r.n., Xanax 0.25 mg every 4 hours p.r.n. and Zanaflex 4 mg at bedtime. LABORATORY DATA: shows hemoglobin 9.9, hematocrit 33.0, WBC 20,000 and platelets 183. Sodium 136, potassium 4.2, chloride 98, bicarbonate 33, BUN 18, creatinine 0.9, glucose 127, calcium is 8.3, AST is 21, ALT 19 and alk phos is 80. IMPRESSION AND PLAN: Stage IV lung cancer, progressive disease, chronic obstructive lung disease, pulmonary hypertension, anemia, left adrenal mass, chronic renal insufficiency, and attention deficit disorder. MRI suggested of bony metastatic disease. I believe the patient is being scheduled for target radiation therapy. Pulmonary point of view, continue bronchodilator, keep head of bed at 45 degrees. Gastric prophylaxis and deep venous thrombosis prophylaxis. Pain management. Fall precautions. Continue supportive care and pain management. Thank you, and we will follow with you. Nikita Hcetor MD [facility] # [id number]
[2018-10-10] MEDS ORDERED: HYDROmorphone 1 mg/ml PCA 30 ML IV PRN ×2 (16:45→16:47)
[2018-10-10 16:55] VITALS: BP 115/79; PULSE 127; TEMP 97.8
[2018-10-10 17:15] VITALS: RESP 20
[2018-10-10] MEDS ORDERED: Dexamethasone 4 mg/1 ml IV SCH (18:00)
[2018-10-10] MEDS ORDERED: Albuterol-Ipratrop 3 mg / 0.5 (3 ml) UD IH PRN (18:22)
[2018-10-10] MEDS ORDERED: Albuterol-Ipratrop 3 mg / 0.5 (3 ml) UD IH STA (18:23)
--- NOTE | 2018-10-10 22:14 | PN ---
DATE: 10/10/2018 SUBJECTIVE: The patient is in bed, in no acute distress, nontoxic. PHYSICAL EXAMINATION: VITAL SIGNS: On exam, temperature is 97, blood pressure is 115/70, respiratory rate of 18. HEENT: Unremarkable. NECK: Supple. LUNGS: Have decreased breath sounds. HEART: Normal S1 and S2. ABDOMEN: Soft. LABORATORY DATA: Noted. ASSESSMENT AND PLAN: This is a 63-year-old who is chronically ill, cachectic with wasting syndrome, status post sepsis, obstructive pneumonitis, lung cancer, extensive Staphylococcus aureus bacteremia in the past, has completed therapy, currently off of antibiotics, currently awaiting for hospice setting for this patient who is terminal. Eliezer Stuart MD
--- NOTE | 2018-10-12 09:53 | PN ---
DATE: 10/10/2018 This is [facility] visit on the medical floor. For Dr. Weller. SUBJECTIVE: The patient is a 62-year-old female now being seen by Dr. Weller after initial evaluation by Dr. Wood with the patient known to be diagnosed with stage IV squamous cell lung cancer with chemotherapy treatments and radiation, now admitted 17 days prior for evaluation of dehydration and status post fall with the patient not eating at that time. At present, she was recommended for radiation treatments, which were not able to be done yesterday due to the patient's severe pain. The patient was brought to the radiation oncology department with her pain medicines helping her pain. The patient is resting comfortably when an attempt to do radiation, she developed intractable pain and was unable to participate in treatment yesterday. We will attempt again in Friday two days' time. She is on significant amounts of narcotic analgesics, which did control her pain to certain point. OBJECTIVE/PHYSICAL EXAMINATION VITAL SIGNS: Temperature 98.2, pulse 71, respirations 18, blood pressure 113/80, pulse ox 98%. HEENT: Unremarkable. NECK: Supple. HEART: Regular rate. LUNGS: Decreased breath sounds. Occasional rhonchi. ABDOMEN: Soft and nontender. EXTREMITIES: No edema. SKIN: Warm and dry. NEUROLOGIC: Awake and alert. LABORATORY DATA: The patient's labs were done. White blood cells count 20.3, hemoglobin 9.9, hematocrit 33.0, platelet count of 183,000. A metabolic panel showing a calcium of 8.3, otherwise normal metabolic panel. The patient did have a MRI of lumbar spine done two days prior, impression was abnormal single change with enhancement lumbar spine identified with bilateral medial visualized leg bone and bilateral sacral ala suggested metastatic disease. No abnormal intrathecal or epidural enhancements is appreciated. No significant stenosis at the lumbar spine, though minimal grade I spondylolisthesis, flattening of the ventral thecal sac. No disc herniation. Levoscoliotic lumbar spinal deformity S-shaped thoracolumbar scoliosis. MRI of the thoracic spine is also done two days prior, it was notified mildly inhomogeneous enhancement of T5 vertebral body identified as well as enhancement of 4.3 cm left paraspinal mass, T8 through T10 level signal digestive suggestive of metastasis. No abnormal intrathecal epidural enhancement in the thoracic spinal cord unremarkable once again. 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 PLAN: For this patient after conversation with Dr. Weller is to continue present regimen including narcotic and analgesic for her severe pain along with IV steroids as per Dr. Hector, Pulmonology, IV fluid as per [facility] rehabilitation consultant. However, lower her IV fluids 75-55 mL an hour of normal saline and we will remove her narcotic analgesics and his controls were obtained on HEAD SUGAR REPROCESS OPERATOR pump. Radiation is to be continue , with the patient to be medicated prior to radiation being given. This is a complex patient with a comprehensive medically necessary and appropriate visit carried out in excess of 50 minutes with the patient and her family member's questions answered to her satisfaction. Leopoldo López MD
== END 2018-10-10 19:37 | disposition hospice, inpatient (51) | DRG 871 ==
LOC: ED 13:12 → ERH 17:17 → 3RNO 21:15
PROVIDERS: ADMIT Internal Medicine Medical Oncology; ATTEND Internal Medicine
DX: A41.9 Sepsis, unspecified organism (principal); J15.9 Unspecified bacterial pneumonia; C34.92 Malignant neoplasm of unspecified part of left bronchus or lung; C79.51 Secondary malignant neoplasm of bone; C78.01 Secondary malignant neoplasm of right lung; C79.72 Secondary malignant neoplasm of left adrenal gland; R64 Cachexia; J96.11 Chronic respiratory failure with hypoxia; N17.9 Acute kidney failure, unspecified; E44.1 Mild protein-calorie malnutrition; J90 Pleural effusion, not elsewhere classified; J98.11 Atelectasis; R59.0 Localized enlarged lymph nodes; K56.41 Fecal impaction; R62.7 Adult failure to thrive; E86.0 Dehydration; E83.51 Hypocalcemia; E83.52 Hypercalcemia; F90.9 Attention-deficit hyperactivity disorder, unspecified type; I27.20 Pulmonary hypertension, unspecified; N18.3 Chronic kidney disease, stage 3 (moderate); I12.9 Hypertensive chronic kidney disease with stage 1 through stage 4 chronic kidney disease, or unspecified chronic kidney disease; F06.4 Anxiety disorder due to known physiological condition; D63.1 Anemia in chronic kidney disease; G89.4 Chronic pain syndrome; W01.0XXA Fall on same level from slipping, tripping and stumbling without subsequent striking against object, initial encounter; Z99.81 Dependence on supplemental oxygen; Z87.891 Personal history of nicotine dependence; T38.0X5A Adverse effect of glucocorticoids and synthetic analogues, initial encounter; E83.39 Other disorders of phosphorus metabolism; E83.42 Hypomagnesemia; I08.3 Combined rheumatic disorders of mitral, aortic and tricuspid valves; J43.9 Emphysema, unspecified; M41.9 Scoliosis, unspecified; M47.816 Spondylosis without myelopathy or radiculopathy, lumbar region; M51.34 Other intervertebral disc degeneration, thoracic region; R04.0 Epistaxis; Y95 Nosocomial condition; Z51.5 Encounter for palliative care; Z79.899 Other long term (current) drug therapy; Z80.6 Family history of leukemia; Z82.49 Family history of ischemic heart disease and other diseases of the circulatory system; Z83.3 Family history of diabetes mellitus; Z92.21 Personal history of antineoplastic chemotherapy; Z92.3 Personal history of irradiation

== ENCOUNTER 2018-10-10 19:40 | Inpatient (IN) | payer OTHER ==
[2018-10-10] MEDS: Sodium Chloride 0.9% 1,000 ML IV SCH (22:00)
[2018-10-10] MEDS ORDERED: Albuterol-Ipratrop 3 mg / 0.5 (3 ml) UD IH SCH (23:30)
[2018-10-11] MEDS ORDERED: Albuterol-Ipratrop 3 mg / 0.5 (3 ml) UD IH PRN (00:10)
[2018-10-11] MEDS: Pantoprazole 40 mg EC Tab PO SCH (06:03)
[2018-10-11] MEDS: HYDROmorphone 1 mg/ml PCA 30 ML IV PRN ×2 (07:36→22:19)
[2018-10-11] MEDS: Dexamethasone 4 mg/1 ml IVP SCH ×3 (09:42→17:35)
[2018-10-11] MEDS: POLYETHYLENE GLYCOL 3350 17 GM/Dose PACKET PO SCH ×3 (09:42→17:35)
[2018-10-11] MEDS: Lidocaine 5% Patch TD SCH ×2 (09:42→09:43)
[2018-10-11] MEDS: Potassium & Sodium Phosphate PO SCH ×2 (09:42→17:35)
[2018-10-11] MEDS ORDERED: Lidocaine 5% Patch TD SCH (10:00)
[2018-10-11] MEDS: HYDROmorphone 2 mg/ml ISec IVP PRN ×3 (11:40→19:46)
[2018-10-11] MEDS: Sodium Chloride 0.9% 1,000 ML IV SCH (17:33)
--- NOTE | 2018-10-11 22:58 | CON ---
DATE: 10/11/2018 This is [facility] visit on the hospice medical floor. For Dr. Weller, a consult. CHIEF COMPLAINT: Stage IV squamous cell lung cancer with intractable pain of cancer. HISTORY OF PRESENT ILLNESS: The patient is a 63-year-old female patient of Dr. Wood recently transferred to Dr. Weller's service suffering with stage IV squamous cell cancer of the lung with intractable pain from metastases. The patient is now a hospice patient as per her primary doctor and per patient's and family's wishes. At present, she is in no acute distress, resting comfortably. ALLERGIES: NO ALLERGIES. PAST MEDICAL HISTORY: As above, COPD, ADD. FAMILY HISTORY: Noncontributory. SOCIAL HISTORY: Noncontributory. MEDICATIONS: At present include; Decadron, Colace, Dilaudid SANITARY ENGINEER, DuoNeb, Duragesic, heparin, Lidoderm, Lyrica, MiraLax, Neutra-Phos, Os-Terrance, Protonix, IV fluids at 50 mL an hour, Tylenol, Xanax, and Zanaflex. REVIEW OF SYSTEMS: A 12-point review of systems was done, which is negative to questioning except for items mentioned in the history of present illness as above. PHYSICAL EXAMINATION VITAL SIGNS: Temperature 97.8, pulse 127, respirations 20, blood pressure 115/79, pulse ox 100%. The patient's height is 4 feet 10 inches with the weight of 88 pounds with cachexia, malignancy noted. HEENT: The patient appears cachectic with sunken temples, tongue is moist. NECK: Supple. HEART: Tachy rate, regular rhythm. LUNGS: Minimal decreased breath sounds at the bases. ABDOMEN: Soft, scaphoid, nontender. EXTREMITIES: No edema. SKIN: Warm and dry. NEUROLOGIC: She is somnolent, but arousable. LABORATORY DATA: Labs were not done as per hospice/primary medical doctor. ASSESSMENT: Intractable pain of cancer with bony metastases from the primary of stage IV squamous cell lung cancer. Chronic obstructive pulmonary disease, pulmonary hypertension, attention deficit disorder, sinus tachycardia, chronic renal insufficiency. PLAN: Palliative care, comfort measures as per patient's and family's request. This is a complex patient with a comprehensive medically necessary and appropriate visit carried out in excess of 15 minutes with the patient and family member's questions answered to their satisfaction. Leopoldo López MD
[2018-10-12] MEDS: HYDROmorphone 2 mg/ml ISec IVP PRN ×5 (04:12→20:39)
[2018-10-12] MEDS: Pantoprazole 40 mg EC Tab PO SCH (06:27)
--- NOTE | 2018-10-12 08:51 | CP.PCM.PN ---
Subjective - Date & Time of Evaluation Date of Evaluation: 10/12/18 Time of Evaluation: 06:00 - Subjective Subjective: Tyler Sales PGY2 Heme/Onc Progress Note for Dr. Weller Patient seen and evaluated bedside in AM. No acute issues overnight. Patient is now in patient hospice. Still complaining of back pain. She will receive palliative radiation treatments to thoracic spine, with first session this afternoon. Objective - Vital Signs/Intake and Output Vital Signs (last 24 hours): Temp Pulse Resp BP Pulse Ox 18 10/10/18 20:33 - Medications Medications: Current Medications Acetaminophen (Tylenol 325mg Tab) 650 mg PO Q6H PRN PRN Reason: Pain, Mild (1-3) Albuterol/Ipratropium (Duoneb 3 Mg/0.5 Mg (3 Ml) Ud) 3 ml IH [id number] PRN PRN Reason: Shortness of Breath Alprazolam (Xanax) 0.25 mg PO Q4 PRN; Protocol PRN Reason: Anxiety Stop: 10/18/18 00:01 Last Admin: 10/12/18 04:13 Dose: 0.25 mg Calcium Carbonate (Oscal) 500 mg PO BID [facility] Last Admin: 10/11/18 17:35 Dose: 500 mg Dexamethasone (Decadron Inj) 4 mg IVP TID [facility] Last Admin: 10/11/18 17:35 Dose: 4 mg Docusate Sodium (Colace) 100 mg PO BID [facility] Last Admin: 10/11/18 17:35 Dose: 100 mg Fentanyl (Duragesic) 1 patch TD Q72H [facility] Last Admin: 10/11/18 09:43 Dose: 1 patch Heparin Sodium (Porcine) (Heparin) 5,000 units SC Q12 [facility]; Protocol Last Admin: 10/11/18 21:47 Dose: 5,000 units Hydromorphone HCl (Dilaudid) 2 mg IVP Q2H PRN PRN Reason: Pain, severe (8-10) Last Admin: 10/12/18 04:12 Dose: 2 mg Hydromorphone HCl (Dilaudid-Hp 1 Mg/Ml Customer Care Team Coach) 30 mls @ 2 mls/hr IV PRN PRN PRN Reason: DISCHARGE DOOR 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 MD ORDER Last Admin: 10/11/18 22:19 Dose: 2 mls/hr Sodium Chloride (Sodium Chloride 0.9%) 1,000 mls @ 50 mls/hr IV .Q20H [facility] Last Admin: 10/11/18 17:33 Dose: 50 mls/hr Lidocaine (Lidoderm) 1 ea TD DAILY [facility] Last Admin: 10/11/18 09:42 Dose: 1 ea Lidocaine (Lidoderm) 1 ea TD DAILY [facility] Last Admin: 10/11/18 09:43 Dose: 1 ea Pantoprazole Sodium (Protonix Ec Tab) 40 mg PO 0600 [facility] Last Admin: 10/12/18 06:27 Dose: 40 mg Polyethylene Glycol (Miralax) 17 gm PO TID [facility] Last Admin: 10/11/18 17:35 Dose: 17 gm Potassium Phos/Sodium Phos (Neutra-Phos) 2 pkt PO BID [facility] Last Admin: 10/11/18 17:35 Dose: 2 pkt Pregabalin (Lyrica) 75 mg PO BID [facility] Last Admin: 10/11/18 17:34 Dose: 75 mg Tizanidine HCl (Zanaflex) 4 mg PO HS [facility] Last Admin: 10/11/18 21:48 Dose: 4 mg - Constitutional Appears: No Acute Distress - Head Exam Head Exam: ATRAUMATIC, NORMAL INSPECTION, NORMOCEPHALIC - ENT Exam ENT Exam: Mucous Membranes Moist - Respiratory Exam Respiratory Exam: Clear to Ausculation Bilateral, NORMAL BREATHING PATTERN - Cardiovascular Exam Cardiovascular Exam: REGULAR RHYTHM Assessment and Plan - Assessment and Plan (Free Text) Assessment: 63 female with a past medical history of COPD, CKD, 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 Plan: Metastatic Lung CA -DISCHARGE DOOR OPERATOR pump -pain control -dilaudid -Dr. Prabhakar, radiation onc consulted, patient will receive one of 3 planned palliative radiation treatments to the thoracic spine today -dexamethasone -MRI of thoracic spine shows: 1. Findings are concerning for metastatic lesions in the T5 and L1 vertebral body without evidence for pathologic fracture. 2. Abnormal soft tissue mass involving the left posterior T9 and T10 ribs also concerning for metastasis. 3. Moderate left and small right pleural effusions. Thoracic Spine MRI 10/08/18 14:22 IMPRESSION: Mildly inhomogeneous enhancement at the T5 vertebral body is identified as well as enhancement within a 4.3 cm left paraspinal mass T8 through T10 level signal digestive of metastasis. No abnormal intrathecal or epidural enhancement with the thoracic spinal cord unremarkable once again. Lumbar Spine MRI 10/08/18 14:23 IMPRESSION: 1. Abnormal signal changes with enhancement at the lumbar spine are identified as well as at the bilateral medial visualized iliac bones and bilateral sacral ketan a suggest metastatic disease. No abnormal intrathecal or epidural enhancement appreciated. 2. No significant stenosis throughout the lumbar spine though minimal grade 1 spondylolisthesis at L4-5 (degenerative) flattens the ventral thecal sac. No disc herniation identified throughout. 3. Levoscoliotic lumbar spinal deformity a component of S-shaped thoracolumbar scoliosis.
[2018-10-12 10:40] LABS: MEAN CELL VOLUME 95.2 fl (80.0-105.0); MEAN CORPUSCULAR HEMOGLOBIN 28.3 pg (25.0-35.0); MEAN CORPUSCULAR HGB CONC 29.8 g/dl (31.0-37.0); RBC 3.53 10^6/uL (3.5-6.1); RED CELL DISTRIBUTION WIDTH 18.2 % (11.5-14.5); WHITE BLOOD COUNT 17.7 10^3/uL (4.5-11.0)
[2018-10-12] MEDS: Dexamethasone 4 mg/1 ml IVP SCH ×3 (10:48→18:01)
[2018-10-12] MEDS: Lidocaine 5% Patch TD SCH ×2 (10:49→10:50)
[2018-10-12] MEDS: POLYETHYLENE GLYCOL 3350 17 GM/Dose PACKET PO SCH ×3 (10:49→18:00)
[2018-10-12 10:56] LABS: ALT/SGPT 12 U/L (7-56); AST/SGOT 20 U/L (14-36); BLOOD UREA NITROGEN 12 mg/dL (7-21); CALCIUM 8.3 mg/dL (8.4-10.5); GFR NON-AFRICAN AMERICAN > 60
--- NOTE | 2018-10-12 12:16 | CP.PCM.CON ---
History of Present Illness - History of Present Illness History of Present Illness: Palliative consult requested by Dr Lencho Charles Reasons: Goals of care/symptom management Ms Pablo is a 63 year old female with history of metastatic NSCL cancer, diffuse/widespread bony metastasis s/p chemo who is receiving hospice and palliative treatment for complaints of intractable pain, constipation, deconditioning,anorexia, cachexia, anemia. Recent MRI of thoracic and lumbar spine showed Enhancement in T5 vertebrae well as a 4.3cm left paraspinal mass through T8 through T10 level suggestive of metastasis. No intrathecal enhancement. Abnormal signal changes in the lumbar spine as well as bilateral metastasis in the iliac and sacral bones. She is currently receiving palliative XRT. She denies nausea, vomiting, fever,chills, shorteners of breath, headache,dysuria. PMHx: COPD, Non-small cell Lung Ca stage IV on Opdivo, L pleural effusion, L adrenal mass, post obstructive pneumonitis, ADHD,constipation PSHx: Breast reduction (1999), Inguinal hernia repair (2011), [place] cath (2018) Social history: Former heavy smoker, denies EtOH or drug use. Lives with teenage son. Family history: Sister- from Leukemia age 32, Dad-HTN/DM, Mom- HTN Advance Care Planning: The patient is DNR/DNI. Review of System: As per HPI, 10 point ROS otherwise negative Past Patient History - Infectious Disease Hx of Infectious Diseases: None - Past Social History Smoking Status: Former Smoker - CARDIAC Hx Cardia Arrhythmia: Yes Hx Circulatory Problems: Yes - PULMONARY Hx Chronic Obstructive Pulmonary Disease (COPD): Yes - NEUROLOGICAL Hx Neurological Disorder: No - HEENT Hx HEENT Problems: No - RENAL Hx Renal Failure: Yes - ENDOCRINE/METABOLIC Hx Endocrine Disorders: No - HEMATOLOGICAL/ONCOLOGICAL Hx Blood Disorders: Yes - INTEGUMENTARY Hx Dermatological Problems: No - MUSCULOSKELETAL/RHEUMATOLOGICAL Hx Falls: Yes (09/22/18) - GASTROINTESTINAL Hx Gastrointestinal Disorders: No - GENITOURINARY/GYNECOLOGICAL Hx Genitourinary Disorders: No - PSYCHIATRIC Hx Substance Use: No - SURGICAL HISTORY Other/Comment: R chest port - ANESTHESIA Hx Anesthesia: Yes Hx Anesthesia Reactions: No Hx Malignant Hyperthermia: No Meds Allergies/Adverse Reactions: Allergies Allergy/AdvReac Type Severity Reaction Status Date / Time No Known Allergies Allergy Verified 08/10/18 13:50 - Medications Medications: Current Medications Acetaminophen (Tylenol 325mg Tab) 650 mg PO Q6H PRN PRN Reason: Pain, Mild (1-3) Albuterol/Ipratropium (Duoneb 3 Mg/0.5 Mg (3 Ml) Ud) 3 ml IH [id number] PRN PRN Reason: Shortness of Breath Alprazolam (Xanax) 0.25 mg PO Q4 PRN; Protocol PRN Reason: Anxiety Stop: 10/18/18 00:01 Last Admin: 10/12/18 10:50 Dose: 0.25 mg Dexamethasone (Decadron Inj) 4 mg IVP TID [facility] Last Admin: 10/12/18 10:48 Dose: 4 mg Docusate Sodium (Colace) 100 mg PO BID [facility] Last Admin: 10/12/18 10:49 Dose: 100 mg Fentanyl (Duragesic) 1 patch TD Q72H [facility] Last Admin: 10/11/18 09:43 Dose: 1 patch Heparin Sodium (Porcine) (Heparin) 5,000 units SC Q12 [facility]; Protocol Last Admin: 10/12/18 10:48 Dose: 5,000 units Hydromorphone HCl (Dilaudid) 2 mg IVP Q2H PRN PRN Reason: Pain, severe (8-10) Last Admin: 10/12/18 10:48 Dose: 2 mg Hydromorphone HCl (Dilaudid-Hp 1 Mg/Ml [facility] Straightener Stamper) 30 mls @ 2 mls/hr IV PRN PRN PRN Reason: SPECTROGRAPHER PER MD ORDER Last Admin: 10/11/18 22:19 Dose: 2 mls/hr Sodium Chloride (Sodium Chloride 0.9%) 1,000 mls @ 50 mls/hr IV .Q20H [facility] Last Admin: 10/11/18 17:33 Dose: 50 mls/hr Lidocaine (Lidoderm) 1 ea TD DAILY [facility] Last Admin: 10/12/18 10:49 Dose: 1 ea Lidocaine (Lidoderm) 1 ea TD DAILY [facility] Last Admin: 10/12/18 10:50 Dose: 1 ea Pantoprazole Sodium (Protonix Ec Tab) 40 mg PO 0600 [facility] Last Admin: 10/12/18 06:27 Dose: 40 mg Polyethylene Glycol (Miralax) 17 gm PO TID [facility] Last Admin: 10/12/18 10:49 Dose: 17 gm Tizanidine HCl (Zanaflex) 4 mg PO HS [facility] Last Admin: 10/11/18 21:48 Dose: 4 mg Physical Exam - Constitutional Appears: Cachectic, Chronically Ill - Eye Exam Eye Exam: Normal appearance, PERRL - ENT Exam ENT Exam: Mucous Membranes Moist, Normal Oropharynx - Respiratory Exam Respiratory Exam: Decreased Breath Sounds, NORMAL BREATHING PATTERN - Cardiovascular Exam Cardiovascular Exam: REGULAR RHYTHM, +S1, +S2 - GI/Abdominal Exam GI & Abdominal Exam: Hypoactive Bowel Sounds, Soft - Extremities Exam Extremities exam: Positive for: pedal edema, pedal pulses present - Back Exam Additional comments: nodules along upper back - Neurological Exam Neurological exam: Alert - Skin Skin Exam: Dry, Pallor - Additional Findings Additional findings: Palliative performance scale rating 30 % Results - Vital Signs Recent Vital Signs: Last Vital Signs Temp Pulse Resp 18 10/10/18 20:33 BP Pulse Ox - Labs Result Diagrams: 10/12/18 10:15 10/12/18 10:15 Labs: Laboratory Results - last 24 hr 10/12/18 10/12/18 10:15 10:15 WBC 17.7 H RBC 3.53 Hgb 10.0 L Hct 33.6 L MCV 95.2 MCH 28.3 MCHC 29.8 L RDW 18.2 H Plt Count 149 MPV 9.0 Sodium 138 Potassium 3.9 Chloride 96 L Carbon Dioxide 37 H Anion Gap 9 L BUN 12 Creatinine 0.6 L Est GFR ( Amer) > 60 Est GFR (Non-Af Amer) > 60 Random Glucose 128 H Calcium 8.3 L Magnesium 1.5 L Total Bilirubin 0.5 AST 20 ALT 12 Alkaline Phosphatase 82 Total Protein 6.2 Albumin 3.0 Globulin 3.2 Albumin/Globulin Ratio 1.0 L Assessment & Plan - Assessment and Plan (Free Text) Assessment: 63 year odl female with hsoty if metastatic NSC lung cancer diffuse bony metastasis who is admitted under [facility] services for pain and symptom management. She is also receiving full supportive care. Elsa is known to me from pervious admission Goals of care have been discussed at length. Elsa wants top receive supportive treatment as well as hospice services. Patient is DNR/DNI. She states that her pain is better since the Dilaudid was increased to 2 mg /hr. She rates it as 8/10. Her appetite is fare. She complains of constipation, no BM since . Was given Relistor yesterday. Offered glycerin suppository, states she will take after she returns from radiation. She was seen by radiation oncology on Friday and simulated on for treatment. She is to start treatment today. Her family and friends have been very supportive,they visit often. The patients brother Brandan Pablo is her health care proxy. Psychosocial support provided Plan: Pain management; Dilaudid 2mg/continuos infusion,Dilaudid 2mg IVP as needed. Fentanyl 50 mcg, Lyrica, Dexamethasone,Lidocaine patch. Hospice to provide weekly massage therapy. Xanax as needed for anxiety Radiation therapy Continue Miralax, Colace. s/p Relistor yesterday> no BM, Glycerin suppository today Dietary counseling PT/OT
[2018-10-12] MEDS: Sodium Chloride 0.9% 1,000 ML IV SCH (13:40)
[2018-10-12] MEDS: HYDROmorphone 1 mg/ml PCA 30 ML IV PRN (14:33)
[2018-10-13] MEDS: HYDROmorphone 2 mg/ml ISec IVP PRN ×6 (00:18→21:51)
[2018-10-13] MEDS: Pantoprazole 40 mg EC Tab PO SCH (05:23)
[2018-10-13] MEDS: HYDROmorphone 1 mg/ml PCA 30 ML IV PRN ×2 (05:40→20:11)
[2018-10-13] MEDS: Sodium Chloride 0.9% 1,000 ML IV SCH (08:04)
[2018-10-13 08:31] VITALS: RESP 20
[2018-10-13] MEDS: Lidocaine 5% Patch TD SCH ×2 (10:10→10:11)
[2018-10-13] MEDS: POLYETHYLENE GLYCOL 3350 17 GM/Dose PACKET PO SCH ×2 (10:10→13:59)
[2018-10-13] MEDS: Dexamethasone 4 mg/1 ml IVP SCH ×3 (10:10→21:50)
--- NOTE | 2018-10-13 12:07 | CP.PCM.PN ---
Subjective - Date & Time of Evaluation Date of Evaluation: 10/13/18 Time of Evaluation: 06:00 - Subjective Subjective: Tyler Sales PGY2 Heme/Onc Progress Note for Dr. Weller Patient seen and evaluated bedside in AM. No acute issues overnight. Still complaining of back pain. Patient received palliative radiation treatment to thoracic spine yesterday, another session scheduled for today. Objective - Vital Signs/Intake and Output Vital Signs (last 24 hours): Temp Pulse Resp BP Pulse Ox 97.4 F L 114 H 20 90/63 L 95 10/13/18 08:30 10/13/18 08:30 10/13/18 08:30 10/13/18 08:30 10/13/18 08:30 - Medications Medications: Current Medications Acetaminophen (Tylenol 325mg Tab) 650 mg PO Q6H PRN PRN Reason: Pain, Mild (1-3) Albuterol/Ipratropium (Duoneb 3 Mg/0.5 Mg (3 Ml) Ud) 3 ml IH [id number] PRN PRN Reason: Shortness of Breath Alprazolam (Xanax) 0.25 mg PO Q4 PRN; Protocol PRN Reason: Anxiety Stop: 10/18/18 00:01 Last Admin: 10/13/18 10:06 Dose: 0.25 mg Dexamethasone (Decadron Inj) 4 mg IVP TID [facility] Last Admin: 10/13/18 10:10 Dose: 4 mg Docusate Sodium (Colace) 100 mg PO BID [facility] Last Admin: 10/13/18 10:06 Dose: 100 mg Fentanyl (Duragesic) 1 patch TD Q72H [facility] Last Admin: 10/12/18 18:40 Dose: 1 patch Heparin Sodium (Porcine) (Heparin) 5,000 units SC Q12 [facility]; Protocol Last Admin: 10/13/18 10:10 Dose: 5,000 units Hydromorphone HCl (Dilaudid) 2 mg IVP Q2H PRN PRN Reason: Pain, severe (8-10) Last Admin: 10/13/18 11:01 Dose: 2 mg Hydromorphone HCl (Dilaudid-Hp 1 Mg/Ml Limnologist) 30 mls @ 2 mls/hr IV PRN PRN PRN Reason: TAB CUTTING MACHINE 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 MD ORDER Last Admin: 10/13/18 05:40 Dose: 2 mls/hr Sodium Chloride (Sodium Chloride 0.9%) 1,000 mls @ 50 mls/hr IV .Q20H [facility] Last Admin: 10/13/18 08:04 Dose: 50 mls/hr Lidocaine (Lidoderm) 1 ea TD DAILY [facility] Last Admin: 10/13/18 10:10 Dose: 1 ea Lidocaine (Lidoderm) 1 ea TD DAILY [facility] Last Admin: 10/13/18 10:11 Dose: 1 ea Pantoprazole Sodium (Protonix Ec Tab) 40 mg PO 0600 [facility] Last Admin: 10/13/18 05:23 Dose: 40 mg Polyethylene Glycol (Miralax) 17 gm PO TID [facility] Last Admin: 10/13/18 10:10 Dose: 17 gm Tizanidine HCl (Zanaflex) 4 mg PO HS [facility] Last Admin: 10/12/18 21:57 Dose: 4 mg - Labs Labs: 10/12/18 10:15 10/12/18 10:15 - Constitutional Appears: No Acute Distress - ENT Exam ENT Exam: Mucous Membranes Moist - Respiratory Exam Respiratory Exam: Clear to Ausculation Bilateral, NORMAL BREATHING PATTERN - Cardiovascular Exam Cardiovascular Exam: REGULAR RHYTHM - Neurological Exam Neurological Exam: Alert, Awake, Oriented x3 Assessment and Plan - Assessment and Plan (Free Text) Assessment: 63 female with a past medical history of COPD, CKD, 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 Plan: Metastatic Lung CA -TAB CUTTING MACHINE OPERATOR pump -pain control -dilaudid -Dr. Prabhakar, radiation onc consulted, patient will receive planned palliative radiation treatments to the thoracic spine -dexamethasone -MRI of thoracic spine shows: 1. Findings are concerning for metastatic lesions in the T5 and L1 vertebral body without evidence for pathologic fracture. 2. Abnormal soft tissue mass involving the left posterior T9 and T10 ribs also concerning for metastasis. 3. Moderate left and small right pleural effusions. Thoracic Spine MRI 10/08/18 14:22 IMPRESSION: Mildly inhomogeneous enhancement at the T5 vertebral body is identified as well as enhancement within a 4.3 cm left paraspinal mass T8 through T10 level signal digestive of metastasis. No abnormal intrathecal or epidural enhancement with the thoracic spinal cord unremarkable once again. Lumbar Spine MRI 10/08/18 14:23 IMPRESSION: 1. Abnormal signal changes with enhancement at the lumbar spine are identified as well as at the bilateral medial visualized iliac bones and bilateral sacral ketan a suggest metastatic disease. No abnormal intrathecal or epidural enhancement appreciated. 2. No significant stenosis throughout the lumbar spine though minimal grade 1 spondylolisthesis at L4-5 (degenerative) flattens the ventral thecal sac. No disc herniation identified throughout. 3. Levoscoliotic lumbar spinal deformity a component of S-shaped thoracolumbar scoliosis.
--- NOTE | 2018-10-13 13:07 | CP.PCM.PN ---
Subjective - Date & Time of Evaluation Date of Evaluation: 10/13/18 Time of Evaluation: 01:00 - Subjective Subjective: Ms Omer has stage IV lung cancer. She is currently getting paliative radiation for her left paraspinal mass for pain control. She is on a ROBOTICS TECHNICIAN and on dilaudid. She is 2 out of four radiation treatments. Objective - Vital Signs/Intake and Output Vital Signs (last 24 hours): Temp Pulse Resp BP Pulse Ox 97.4 F L 114 H 20 90/63 L 95 10/13/18 08:30 10/13/18 08:30 10/13/18 08:30 10/13/18 08:30 10/13/18 08:30 - Medications Medications: Current Medications Acetaminophen (Tylenol 325mg Tab) 650 mg PO Q6H PRN PRN Reason: Pain, Mild (1-3) Albuterol/Ipratropium (Duoneb 3 Mg/0.5 Mg (3 Ml) Ud) 3 ml IH [id number] PRN PRN Reason: Shortness of Breath Dexamethasone (Decadron Inj) 4 mg IVP TID [facility] Last Admin: 10/13/18 10:10 Dose: 4 mg Docusate Sodium (Colace) 100 mg PO BID [facility] Last Admin: 10/13/18 10:06 Dose: 100 mg Fentanyl (Duragesic) 1 patch TD Q72H [facility] Last Admin: 10/12/18 18:40 Dose: 1 patch Heparin Sodium (Porcine) (Heparin) 5,000 units SC Q12 [facility]; Protocol Last Admin: 10/13/18 10:10 Dose: 5,000 units Hydromorphone HCl (Dilaudid) 2 mg IVP Q2H PRN PRN Reason: Pain, severe (8-10) Last Admin: 10/13/18 11:01 Dose: 2 mg Hydromorphone HCl (Dilaudid-Hp 1 Mg/Ml Perl Software Engineer) 30 mls @ 2 mls/hr IV PRN PRN PRN Reason: ROBOTICS TECHNICIAN PER MD ORDER Last Admin: 10/13/18 05:40 Dose: 2 mls/hr Sodium Chloride (Sodium Chloride 0.9%) 1,000 mls @ 50 mls/hr IV .Q20H [facility] Last Admin: 10/13/18 08:04 Dose: 50 mls/hr Lidocaine (Lidoderm) 1 ea TD DAILY [facility] Last Admin: 10/13/18 10:10 Dose: 1 ea Lidocaine (Lidoderm) 1 ea TD DAILY [facility] Last Admin: 10/13/18 10:11 Dose: 1 ea Lorazepam (Ativan) 1 mg IVP Q6H PRN; Protocol PRN Reason: Anxiety Pantoprazole Sodium (Protonix Ec Tab) 40 mg PO 0600 [facility] Last Admin: 10/13/18 05:23 Dose: 40 mg Polyethylene Glycol (Miralax) 17 gm PO TID [facility] Last Admin: 10/13/18 10:10 Dose: 17 gm Tizanidine HCl (Zanaflex) 4 mg PO HS [facility] Last Admin: 10/12/18 21:57 Dose: 4 mg - Labs Labs: 10/12/18 10:15 10/12/18 10:15
--- NOTE | 2018-10-13 15:10 | CP.PCM.PN ---
Subjective - Date & Time of Evaluation Date of Evaluation: 10/13/18 Time of Evaluation: 14:00 - Subjective Subjective: Sleeping > XRT this morning of 4. Objective - Vital Signs/Intake and Output Vital Signs (last 24 hours): Temp Pulse Resp BP Pulse Ox 97.4 F L 114 H 20 90/63 L 95 10/13/18 08:30 10/13/18 08:30 10/13/18 08:30 10/13/18 08:30 10/13/18 08:30 - Medications Medications: Current Medications Acetaminophen (Tylenol 325mg Tab) 650 mg PO Q6H PRN PRN Reason: Pain, Mild (1-3) Albuterol/Ipratropium (Duoneb 3 Mg/0.5 Mg (3 Ml) Ud) 3 ml IH [id number] PRN PRN Reason: Shortness of Breath Dexamethasone (Decadron Inj) 4 mg IVP TID [facility] Last Admin: 10/13/18 13:58 Dose: 4 mg Docusate Sodium (Colace) 100 mg PO BID [facility] Last Admin: 10/13/18 10:06 Dose: 100 mg Fentanyl (Duragesic) 1 patch TD Q72H [facility] Last Admin: 10/12/18 18:40 Dose: 1 patch Heparin Sodium (Porcine) (Heparin) 5,000 units SC Q12 [facility]; Protocol Last Admin: 10/13/18 10:10 Dose: 5,000 units Hydromorphone HCl (Dilaudid) 2 mg IVP Q2H PRN PRN Reason: Pain, severe (8-10) Last Admin: 10/13/18 11:01 Dose: 2 mg Hydromorphone HCl (Dilaudid-Hp 1 Mg/Ml Digital Director) 30 mls @ 2 mls/hr IV PRN PRN PRN Reason: PLANE RUNNER PER MD ORDER Last Admin: 10/13/18 05:40 Dose: 2 mls/hr Sodium Chloride (Sodium Chloride 0.9%) 1,000 mls @ 50 mls/hr IV .Q20H [facility] Last Admin: 10/13/18 08:04 Dose: 50 mls/hr Lidocaine (Lidoderm) 1 ea TD DAILY [facility] Last Admin: 10/13/18 10:10 Dose: 1 ea Lidocaine (Lidoderm) 1 ea TD DAILY [facility] Last Admin: 04/30/19 10:11 Dose: 1 ea Lorazepam (Ativan) 1 mg IVP Q6H PRN; Protocol PRN Reason: Anxiety Last Admin: 10/13/18 13:58 Dose: 1 mg Pantoprazole Sodium (Protonix Ec Tab) 40 mg PO 0600 [facility] Last Admin: 10/13/18 05:23 Dose: 40 mg Polyethylene Glycol (Miralax) 17 gm PO TID [facility] Last Admin: 10/13/18 13:59 Dose: 17 gm Tizanidine HCl (Zanaflex) 4 mg PO HS [facility] Last Admin: 10/12/18 21:57 Dose: 4 mg - Labs Labs: 10/12/18 10:15 10/12/18 10:15 - Constitutional Appears: Cachectic, Chronically Ill - ENT Exam ENT Exam: Mucous Membranes Moist - Respiratory Exam Respiratory Exam: Decreased Breath Sounds, NORMAL BREATHING PATTERN - Cardiovascular Exam Cardiovascular Exam: REGULAR RHYTHM, +S1, +S2 - GI/Abdominal Exam GI & Abdominal Exam: Firm, Hypoactive Bowel Sounds - Back Exam Back Exam: vertebral tenderness - Skin Skin Exam: Dry, Pallor Assessment and Plan - Assessment and Plan (Free Text) Assessment: 63 year old female with history of NSCL female with 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 She is also receiving full supportive care. Sister in law, Liss Arias at bedside. Liss reports the patient had a bad night, she did not sleep because of feeling anxious. Patient has not had BM. She agreed to one suppository yesterday but was unable to pass a BM. I explained the consequence of fecal impaction. I suggested Fleet enema. Liss will encourage the patient to try enema Plan: Fleet RC Xanax discontinued, Ativan 1 mg IVP as needed for anxiety Dilaudid 2 mg/hr continuos infusion. Dilaudid IVP as needed for break through pain. Fentanyl 50 mcg transdermal Continue XRT, today 2 of 4
--- NOTE | 2018-10-13 23:00 | PN ---
DATE: 10/13/2018 SUBJECTIVE: The patient was seen late this Friday morning in room 362, bed 2. Resting in bed with a large amount of analgesics infusing and being delivered transdermally. She is still in pain from the back and shoulder. She has undergone radiation treatment to the metastatic lesions in the spine. She has been developing new bumps on her bones, the most recent one in the right femur anteriorly. Prognosis remains grim for this unfortunate woman of only 63 years old. DNR/DNI remains in effect. We will continue treatments and palliative radiation and hope for discharged home with advanced hospice services soon. Ángel Charles MD MTDD
[2018-10-14] MEDS: Sodium Chloride 0.9% 1,000 ML IV SCH ×2 (03:40→20:22)
[2018-10-14] MEDS: HYDROmorphone 2 mg/ml ISec IVP PRN ×4 (05:15→20:15)
[2018-10-14] MEDS: Dexamethasone 4 mg/1 ml IVP SCH ×3 (05:15→21:36)
[2018-10-14] MEDS: Pantoprazole 40 mg EC Tab PO SCH (05:16)
[2018-10-14 07:51] VITALS: BP 114/77; PULSE 124; O2SAT 100
[2018-10-14] MEDS: Lidocaine 5% Patch TD SCH ×2 (10:55)
[2018-10-14] MEDS: HYDROmorphone 1 mg/ml PCA 30 ML IV PRN (11:34)
--- NOTE | 2018-10-14 12:54 | PCM.PPROG ---
History of Present Illness - History of Present Illness History of Present Illness: Sleeping, arousable able to follow simple command Physical Exam - Constitutional Appears: Cachectic, Chronically Ill - Eye Exam Eye Exam: Normal appearance, PERRL - ENT Exam ENT Exam: Mucous Membranes Moist - Respiratory Exam Respiratory Exam: Clear to Auscultation Bilateral, NORMAL BREATHING PATTERN - Cardiovascular Exam Cardiovascular Exam: REGULAR RHYTHM, +S1, +S2 - GI/Abdominal Exam GI & Abdominal Exam: Hypoactive Bowel Sounds, Soft - Extremities Exam Extremities exam: Positive for: pedal pulses present - Back Exam Additional comments: sacral decubiti, stage 2 - Skin Skin Exam: Dry, Pallor, Warm Palliative Care Assessment - Modified MRC Dyspnea Scale Modified MRC Dyspnea Scale: Not troubled by breathlessness except on strenous exercise Grade: 1 - Pain Scale Pain Score: 3 Pain Scale Used: Numeric - Pain Location Pain Location Body Site: Back, Lumbar - Pain Description Description: Dull Intensity of pain at present: 3 Radiation Location: diffuse Variations/Patterns: none Pain Behavior: Moaning, Rubbing Site, Restlessness Aggravating Factors: Exercise/Activity Alleviating Factors/Management Techniques: Medication, Massage, Position Change, Distraction, Inactivity - Josh Scale Sensory Perception: Slightly Limited Moisture: Occasionally Moist Activity: Chairfast Mobility: Very Limited Nutrition: Probably Inadequate Friction & Shear: Problem Total Score - Skin Risk Assessment: 13 - Psychosocial Distress Patient screened for psychosocial distress: Yes Psychosocial Intervention(s): distress related to family needs Outcome: Referred to foster care social worker, Other (hospice follwing) Palliative Care - Goals Treatment Goal(s): Alleviate symptoms, Improve quality of life End of life care discussed: Yes - Plan Interdisciplinary involved: fuel system maintenance worker Discharge planning: Hospice Assessment & Plan - Assessment and Plan (Free Text) Assessment: 63 year old female with history of NSCL female with 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 She is also receiving full supportive care. Sister in law, Liss Arias at bedside. Liss reports that patient has been having soft BM's since using fleet enema The patient has taken small amounts of Lactulose as well. Liss reports the patients appetite as fair. The patient She is mostly bend bound. She is able to have short conversations Plan: Ativan 1 mg IVP as needed for anxiety Dilaudid 2 mg/hr continuos infusion. Dilaudid IVP as needed for break through pain. Fentanyl 50 mcg transdermal Continue XRT, today 3 of 4
[2018-10-15] MEDS: HYDROmorphone 1 mg/ml PCA 30 ML IV PRN ×2 (02:33→15:15)
[2018-10-15] MEDS: Sodium Chloride 0.9% 1,000 ML IV SCH ×2 (02:51→22:19)
[2018-10-15] MEDS: Dexamethasone 4 mg/1 ml IVP SCH ×3 (05:46→22:35)
[2018-10-15] MEDS: Pantoprazole 40 mg EC Tab PO SCH (05:51)
[2018-10-15] MEDS: HYDROmorphone 2 mg/ml ISec IVP PRN ×6 (06:54→22:44)
[2018-10-15] MEDS: Lidocaine 5% Patch TD SCH ×2 (09:17)
--- NOTE | 2018-10-15 15:50 | PCM.PPROG ---
History of Present Illness - History of Present Illness History of Present Illness: lethargic Review of Systems - Review of Systems All systems: reviewed and no additional remarkable complaints except Physical Exam - Constitutional Appears: Cachectic, Chronically Ill - Head Exam Head Exam: NORMOCEPHALIC - Eye Exam Eye Exam: Normal appearance - ENT Exam ENT Exam: Mucous Membranes Moist - Respiratory Exam Respiratory Exam: Decreased Breath Sounds, NORMAL BREATHING PATTERN - Cardiovascular Exam Cardiovascular Exam: REGULAR RHYTHM, +S1, +S2 - GI/Abdominal Exam GI & Abdominal Exam: Hypoactive Bowel Sounds, Soft - Extremities Exam Extremities exam: Positive for: normal inspection - Back Exam Back exam: vertebral tenderness - Neurological Exam Neurological exam: Altered - Skin Skin Exam: Dry, Pallor Palliative Care Assessment - Modified MRC Dyspnea Scale Modified MRC Dyspnea Scale: Too breathless to leave the house,or breathless dressing or undressing Grade: 5 - Pain Scale Pain Score: 2 Pain Scale Used: Numeric - Pain Location Pain Location Body Site: Back, Lumbar, Sacrum - Pain Description Description: Throbbing Intensity of pain at present: 2 Pain Behavior: Moaning, Crying, Restlessness Aggravating Factors: ADL's, Changing Position, Exercise/Activity, Standing, Walking Alleviating Factors/Management Techniques: Medication, Massage, Position Change - Josh Scale Sensory Perception: Slightly Limited Moisture: Occasionally Moist Activity: Bedfast Mobility: Completely Immobile Nutrition: Very Poor Friction & Shear: Problem Total Score - Skin Risk Assessment: 10 - Psychosocial Distress Patient screened for psychosocial distress: Yes Outcome: Resolved Palliative Care - Goals Treatment Goal(s): Alleviate symptoms, Improve quality of life End of life care discussed: Yes - Plan Interdisciplinary involved: room worker Discharge planning: Hospice Assessment & Plan - Assessment and Plan (Free Text) Assessment: 63 year old female with history of metastatic lung cancer who is admitted with intractable pain, disease progression, anorexia, cachexia, sacral decubiti,anxiety. Sister in law at bedside. Discussed Elsa's situation. Explained signs /indications of patients who are nearing end of life. Sister in law verbalized understanding of this. Psychosocial support provided John spent in end of life counseling with family, 30 minutes Plan: Ativan 1 mg IVP as needed for anxiety Dilaudid 2 mg/hr continuos infusion. Dilaudid IVP as needed for break through pain. Fentanyl 50 mcg transdermal XRT, today 4 of 4 Dietary supplement Wound care
--- NOTE | 2018-10-16 01:22 | PN ---
DATE: 10/15/2018 This is Elsa Kai's hospice visit on the medical floor. For Dr. Weller. 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 intake. With this, the patient appears to be in no acute distress. OBJECTIVE: VITAL SIGNS: Temperature 97.4, pulse 124, respirations 20, blood pressure 114/77, and pulse oximetry 100%. GENERAL: She appears cachectic, somnolent but arousable. HEENT: Temples sunken. NECK: Supple. HEART: Tachy rate, regular rhythm. LUNGS: Decreased breath sounds. ABDOMEN: Scaphoid, nontender. EXTREMITIES: No edema. SKIN: Warm and dry. 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 PLAN: Plan for this patient is to have radiation as indicated as per Dr. Anamika Prabhakar for palliation with hospice protocols for comfort measures. Prognosis for this patient is poor. We will monitor clinically with potential reversal and resending of hospice should the patient improve, unfortunately which is unlikely at this time. This is a complex patient with a comprehensive medically necessary and appropriate visit carried out in excess of 15 minutes. Leopoldo López MD
[2018-10-16] MEDS: HYDROmorphone 2 mg/ml ISec IVP PRN ×4 (03:36→17:53)
[2018-10-16] MEDS: HYDROmorphone 1 mg/ml PCA 30 ML IV PRN ×2 (05:48→21:03)
[2018-10-16] MEDS: Dexamethasone 4 mg/1 ml IVP SCH ×3 (05:51→22:01)
--- NOTE | 2018-10-16 10:23 | PN ---
DATE: 10/15/2018 SUBJECTIVE: The patient was seen this morning in room 362, bed 2. She is sleeping having a bit of a rough night and finally getting off the sleep. I spoke with her sister at bedside, today and tomorrow the patient will continue with radiation treatment and then we are looking for discharge home with hospice perhaps on Friday. In the meantime, palliative radiation for control of pain at the spine metastases and we will focus on comfort measures, EMS DRIVER pump continues as well as Duragesic patch and IV Ativan p.r.n. Ángel Charles MD MTDGina
[2018-10-16] MEDS: Lidocaine 5% Patch TD SCH ×2 (10:24)
--- NOTE | 2018-10-16 11:05 | PCM.PPROG ---
History of Present Illness - History of Present Illness History of Present Illness: Obtunded. Review of Systems - Review of Systems All systems: reviewed and no additional remarkable complaints except Physical Exam - Constitutional Appears: No Acute Distress, Cachectic, Chronically Ill - Eye Exam Eye Exam: Normal appearance, PERRL - ENT Exam ENT Exam: Mucous Membranes Dry - Respiratory Exam Respiratory Exam: Decreased Breath Sounds - Cardiovascular Exam Cardiovascular Exam: REGULAR RHYTHM, +S1, +S2 - GI/Abdominal Exam GI & Abdominal Exam: Hypoactive Bowel Sounds, Soft - Exam Additional comments: incontinent - Extremities Exam Additional comments: fingers mottled - Back Exam Additional comments: nodules upper back,scral decubiti - Neurological Exam Neurological exam: Altered - Skin Skin Exam: Dry, Pallor, Warm Palliative Care Assessment - Modified MRC Dyspnea Scale Modified MRC Dyspnea Scale: Too breathless to leave the house,or breathless dressing or undressing Grade: 5 - Pain Scale Pain Score: 0 Pain Scale Used: Marinelli-Mccormick - Josh Scale Sensory Perception: Completely Limited Moisture: Rarely Moist Activity: Bedfast Mobility: Completely Immobile Nutrition: Very Poor Friction & Shear: Problem Total Score - Skin Risk Assessment: 9 - Psychosocial Distress Patient screened for psychosocial distress: No Palliative Care - Goals Treatment Goal(s): Alleviate symptoms, Improve quality of life End of life care discussed: Yes - Plan Interdisciplinary involved: engineering production worker Discharge planning: Hospice Assessment & Plan - Assessment and Plan (Free Text) Assessment: 63 year old female with history of metastatic lung cancer, anorexia, cachexia, intractable pain who is admitted under [facility] for pain and symptom management. I spoke with patient friend Saray who is at bedside. I explained that patient was nearing end of life. Saray states that she recognized the decline Signs and symptoms of impeding explained. Questions answered I also spoke with patient brother Brandan. I explained that patient was nearing end of life. Brandan wants his sister to be kept as comfortable as possible. Time spent 60 minutes, Psychosocial support and end of life counseling provided to family and friends Plan: End of life counseling Patient is obtunded, PO meds stopped Ativan 1 mg every 12 hours scheduled dosing, Ativan 1 mg veyr 4 hrs for breakthrough agitation Dilaudid 2mg/hr continuos infusion, Ativan 2 mg IVP for breakthrough pain Tylenol 650 mg RC every 4 hours for fever over 100F Scopolamine transdermal patch Decrease IVF's
--- NOTE | 2018-10-16 18:53 | PN ---
DATE: 10/16/2018 This is Elsa Quinn's hospice visit on the medical floor. For Dr. Weller. SUBJECTIVE: The patient is a 63-year-old female lying somnolent, but arousable in bed in no acute distress, known to suffer from end-stage stage IV squamous cell CA of the lung with bony metastases and intractable pain of cancer, now on hospice with radiation, also now to be held as per family members' report. She appears to be in no acute distress. OBJECTIVE: VITAL SIGNS: Temperature 97.4, pulse 124, respirations 20, blood pressure 114/77, pulse ox 100%. HEENT: Temples sunken. Mouth open. NECK: Supple. HEART: Tachy rate, regular rhythm. LUNGS: Decreased breath sounds. ABDOMEN: Scaphoid, nontender. EXTREMITIES: No edema. SKIN: Warm and dry. ASSESSMENT: The assessment for this patient is that of end-stage stage IV squamous cell carcinoma of the lung with bony metastasis, intractable pain of cancer, chronic obstructive pulmonary disease, pulmonary hypertension, chronic kidney disease. PLAN: For this patient is to continue palliation and comfort measures as per her and family's request. Prognosis is grave. Leopoldo López MD
[2018-10-16] MEDS: Sodium Chloride 0.9% 1,000 ML IV SCH (22:02)
[2018-10-17] MEDS: HYDROmorphone 2 mg/ml ISec IVP PRN ×5 (00:58→23:54)
--- NOTE | 2018-10-17 02:02 | PN ---
DATE: 10/16/2018 SUBJECTIVE: The patient was seen this Friday morning in room 362, bed 2 with a lifetime childhood friend, Saray, at the bedside. I spoke with Saray at length regarding the patient's condition and wishes. At this point, there seems to be unity amongst the opinion of the patient, her lifetime friend, as well as her brother. Now focus is continuing most probably in the direction of comfort measures. She continues on high-dose analgesics. PHYSICAL EXAMINATION: GENERAL: The patient is essentially responsive only to touch and higher level of stimulation. EXTREMITIES: Fingers are becoming slightly mottled. She is comfortable and sedated, not in pain although she does grimace with movement or passive movement of the upper extremities. IMPRESSION: Terminal lung cancer with metastasis. PLAN: We will continue to focus on comfort measures. I spoke with palliative healthcare interpreter, Liss Bills, who has made some adjustments in medications and fluids, etc. as we focused on comfort measures. Ángel Charles MD
[2018-10-17] MEDS: Dexamethasone 4 mg/1 ml IVP SCH ×3 (06:24→22:00)
[2018-10-17] MEDS: HYDROmorphone 1 mg/ml PCA 30 ML IV PRN ×2 (11:49→21:19)
--- NOTE | 2018-10-17 23:40 | PN ---
DATE: 10/17/2018 SUBJECTIVE: The patient is seen this Friday morning in room 362, bed 2, resting in bed, but have been uncomfortable. She seems to grimace with movement and with touch and passive movement of her extremities. She continues on Dilaudid intravenous drip as well as the Duragesic patch. I spoke with her nurse at the bedside. We will increase her analgesics to focus on patient comfort. She is noncommunicative at this time, does not respond to voice or speech even to answer simple questions. I am not certain if she recognizes me. She does grimace with pain to touch and movement, both passive and self directed. IMPRESSION: Metastatic lung cancer, doing poorly. PLAN: Hospice DNR in effect. I feel the end is coming soon. Ángel Charles MD
[2018-10-18] MEDS: HYDROmorphone 2 mg/ml ISec IVP PRN ×4 (04:55→13:01)
[2018-10-18] MEDS: Dexamethasone 4 mg/1 ml IVP SCH ×3 (07:05→21:39)
[2018-10-18] MEDS: HYDROmorphone 1 mg/ml PCA 30 ML IV PRN ×3 (07:06→16:53)
[2018-10-18] MEDS ORDERED: HYDROmorphone 1 mg/ml PCA IV PRN (14:48)
[2018-10-18] MEDS ORDERED: DiphenhydrAMINE 50 mg/ml Inj IVP STA (14:54)
[2018-10-18] MEDS: Sodium Chloride 0.9% 1,000 ML IV SCH (21:00)
--- NOTE | 2018-10-18 21:18 | PN ---
DATE: 10/18/2018 SUBJECTIVE: The patient was seen this Friday morning in room 362, bed 2 with her sister and lifetime friend, nurse Saray Rosas at the bedside. Patient was aware of my presence, tried to mouth a few words, was able to get a hold of my hand, but grimaces with pain with every movement both passive and intentional. PHYSICAL EXAMINATION: LUNGS: Showed good aeration right and left. HEART: Borderline tachycardic at 100. EXTREMITIES: Thin and frail. IMPRESSION: Lung cancer with metastases. PLAN: Patient remains in hospice care. DNR is in effect. Requiring large doses of analgesics. Continuing to fail. is imminent. Ángel Charles MD
[2018-10-18] MEDS: DiphenhydrAMINE 50 mg/ml Inj IVP SCH (21:39)
[2018-10-19] MEDS: HYDROmorphone 1 mg/ml PCA 30 ML IV PRN ×2 (02:14→11:36)
[2018-10-19] MEDS: Dexamethasone 4 mg/1 ml IVP SCH ×2 (05:41→13:35)
[2018-10-19] MEDS: DiphenhydrAMINE 50 mg/ml Inj IVP SCH ×2 (05:41→13:35)
--- NOTE | 2018-10-19 11:24 | PCM.PPROG ---
History of Present Illness - History of Present Illness History of Present Illness: Febrile, somnolent Review of Systems - Review of Systems All systems: reviewed and no additional remarkable complaints except Physical Exam - Constitutional Appears: Cachectic, Chronically Ill - Eye Exam Eye Exam: Normal appearance - ENT Exam ENT Exam: Mucous Membranes Dry - Respiratory Exam Respiratory Exam: Decreased Breath Sounds, Rhonchi Additional comments: upper airway secretions - Cardiovascular Exam Cardiovascular Exam: REGULAR RHYTHM, +S1, +S2 - GI/Abdominal Exam GI & Abdominal Exam: Hypoactive Bowel Sounds - Extremities Exam Extremities exam: Positive for: pedal edema - Skin Skin Exam: Dry, Pallor Palliative Care Assessment - Modified MRC Dyspnea Scale Modified MRC Dyspnea Scale: Too breathless to leave the house,or breathless dressing or undressing Grade: 5 - Pain Scale Pain Score: 2 Pain Scale Used: MarinelliCarrollMccormick - Pain Description Pain Behavior: Moaning, Facial Grimacing, VS Changes Alleviating Factors/Management Techniques: Medication, Position Change, Inacti vity - Josh Scale Sensory Perception: Completely Limited Moisture: Rarely Moist Activity: Bedfast Mobility: Completely Immobile Nutrition: Very Poor Friction & Shear: Problem Total Score - Skin Risk Assessment: 9 - Psychosocial Distress Patient screened for psychosocial distress: No Palliative Care - Goals Treatment Goal(s): Alleviate symptoms, Improve quality of life End of life care discussed: Yes - Plan Interdisciplinary involved: clerical warehouse worker Discharge planning: Hospice Assessment & Plan - Assessment and Plan (Free Text) Assessment: 63 year old female with history of metastatic NSCL cancer who is admitted under [facility] with intractable pain delirium,fevers The patient is actively dying. She is febrile,with increased upper airway secretions. Sister in law, Liss at bedside. Signs of impending explained. End of life counseling provided. Spiritual support declined Time spent in end of life counseling,30 minutes Plan: End of life counseling Ativan 1 mg every 12 hours scheduled dosing, Ativan 1 mg every 4 hrs for breakthrough agitation Dilaudid 3.5mg/hr continuos infusion, Ativan 1 mg IVP for breakthrough pain Tylenol 650 mg RC every 4 hours for fever over 100F Suction as needed
[2018-10-19 13:37] VITALS: TEMP 99
--- NOTE | 2018-10-19 14:21 | PN ---
DATE: 10/19/2018 DAILY PROGRESS NOTE SUBJECTIVE: The patient is a 63-year-old female with stage IV squamous cell carcinoma of the lung and metastases to the thoracic spine, lumbar spine, sacrum and pelvic girdle. The patient had been declining during her hospital stay. On 10/10/2018, decision was made for the patient to be transferred to hospice care. When seen today, the patient is resting comfortably. Her family members are at bedside. The patient is receiving Decadron 4 mg IV every 8 hours. She is also receiving DIRECTOR OF SPORTS PERFORMANCE pump for Dilaudid. She is on a 100 mcg fentanyl patch. At this point, we are stressing the patient's comfort and continuing to follow the patient. It would appear on today's exam that is imminent. Alfredo Charles MD
--- NOTE | 2018-10-19 14:55 | CP.PCM.PN ---
Subjective - Date & Time of Evaluation Date of Evaluation: 10/19/18 Time of Evaluation: 14:51 - Subjective Subjective: Heme/Onc progress note - Rahel PGY - 2 Patient seen and examined at bedside. No acute events overnight; patient's [id number] at bedside, states that she seems to be doing much better and is not moaning in pain anymore. Patient appears comfortable; history limited 2/2 patient being sedated with palliative care. Objective - Vital Signs/Intake and Output Vital Signs (last 24 hours): Temp Pulse Resp BP Pulse Ox 99 F 124 H 20 114/77 100 10/19/18 11:28 10/14/18 07:51 10/14/18 07:51 10/14/18 07:51 10/14/18 07:51 Intake and Output: 10/19/18 10/19/18 06:59 18:59 Intake Total 102 Balance 102 - Medications Medications: Current Medications Acetaminophen (Tylenol 650 Mg Supp) 650 mg RC Q4H PRN PRN Reason: Fever >100.4 F Last Admin: 10/19/18 10:28 Dose: 650 mg Dexamethasone (Decadron Inj) 4 mg IVP Q8H LUZ MARINA Last Admin: 10/19/18 13:35 Dose: 4 mg Diphenhydramine HCl (Benadryl) 50 mg IVP Q8H LUZ MARINA Last Admin: 10/19/18 13:35 Dose: 50 mg Fentanyl (Duragesic) 1 patch TD Q72H LUZ MARINA Last Admin: 10/18/18 17:44 Dose: 1 patch Hydromorphone HCl (Dilaudid) 2 mg IVP Q2H PRN PRN Reason: Pain, severe (8-10) Last Admin: 10/18/18 13:01 Dose: 2 mg Sodium Chloride (Sodium Chloride 0.9%) 1,000 mls @ 5 mls/hr IV .Q24H LUZ MARINA Last Admin: 10/18/18 21:00 Dose: 5 mls/hr Hydromorphone HCl (Dilaudid-Hp 1 Mg/Ml Transformer Builder) 30 mls @ 3.5 mls/hr IV PRN PRN PRN 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 absent: Lymphadenopathy - Respiratory Exam Respiratory Exam: Clear to Ausculation Bilateral, NORMAL BREATHING PATTERN - Cardiovascular Exam Cardiovascular Exam: REGULAR RHYTHM, +S1, +S2. absent: Murmur - GI/Abdominal Exam GI & Abdominal Exam: Soft, Normal Bowel Sounds. absent: Tenderness - Extremities Exam Extremities Exam: Full ROM, Normal Capillary Refill, Normal Inspection. 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
--- NOTE | 2018-10-19 14:58 | CP.PCM.PRO ---
Pronouncement of Note - Clinical Findings Physical Exam: Absent Peripheral Pulses{Carotid & Femoral}, Absent Heart & Breath Sounds, Pupils Fixed & Dilated, Absence of Vital Signs - Pronouncement Time Time of Pronouncement of : 14:54 - Notifications Pronouncement Notifications: Family Notified (at bedside), Atending Notified (call left with service) Program Architect Notified: Yes - Autopsy Autopsy Requested: No [place] [id number]
== END 2018-10-19 14:54 | DRG 181 ==
LOC: 3RNO 19:40
PROVIDERS: ADMIT Internal Medicine; ATTEND Internal Medicine
DX: C34.90 Malignant neoplasm of unspecified part of unspecified bronchus or lung (principal); C79.51 Secondary malignant neoplasm of bone; R64 Cachexia; Z68.1 Body mass index [BMI] 19.9 or less, adult; G89.3 Neoplasm related pain (acute) (chronic); Z51.5 Encounter for palliative care; Z66 Do not resuscitate; J44.9 Chronic obstructive pulmonary disease, unspecified; I27.20 Pulmonary hypertension, unspecified; K59.00 Constipation, unspecified; L89.152 Pressure ulcer of sacral region, stage 2; N18.9 Chronic kidney disease, unspecified; D64.9 Anemia, unspecified; F90.9 Attention-deficit hyperactivity disorder, unspecified type; M41.9 Scoliosis, unspecified; Z92.21 Personal history of antineoplastic chemotherapy; Z92.3 Personal history of irradiation; Z87.891 Personal history of nicotine dependence